=== PATIENT | male | born 1950 | race African-American/Black ===

== ENCOUNTER 2018-03-20 17:01 | Emergency (ER) | payer MEDICARE, BC ==
[2017-02-20 14:59] VITALS: BP 154/71
[~2018-03-20] VITALS: Ht 180.3 cm; Wt 154.2 kg
[~2018-03-20 17:01] MED LIST: AMLO5TAB7 PO; ASPI-630 PO; FURO20TA3 PO; GLIP5TAB10 PO; HYDR12.58 PO; LISI-130 PO; LOSA-73 PO; METF500T16 PO; TAMS0.4C2 PO
--- NOTE | 2018-03-20 20:13 | RAD ---
Indication: Trauma, fall x5 days. Low back pain TECHNIQUE: Multiple views of the lumbar spine COMPARISON: None FINDINGS: There are 5 lumbar type vertebral bodies. Lumbar spine is in normal anatomic alignment. No compression deformities. Mild to moderate multilevel facet arthropathy. Mild multilevel degenerative disc disease. IMPRESSION: No apparent compression deformities. Electronically signed by: Michael Romero DO (03/20/2018 8:10 PM) [facility]
[2018-03-20] MEDS ORDERED: HYDR-3164 PO (20:23)
[2018-03-20] MEDS ORDERED: ORPH100T PO (20:23)
--- NOTE | 2018-03-20 20:23 | PHYS DOC ---
Past Medical History Past Medical History: Diabetes-Type II, High Cholesterol, Hypertension Past Surgical History: No Surgical History Alcohol Use: None Drug Use: None Adult General Chief Complaint Chief Complaint: BACK PAIN OR INJURY HPI HPI Patient is a 67 year old male who presents with was in a parking lot and tripped and fell and landed on his left knee, left elbow, hit his right side of forehead on the curb. There is no LOC, nausea, vomiting. Patient states that he feels fine except for his lower back all the way across has a dull aching pain that he rates at a 6 out of 10 and states it is tender. Review of Systems Review of Systems Constitutional: Denies fever or chills [] Eyes: Denies change in visual acuity, redness, or eye pain [] HENT: Denies nasal congestion or sore throat [] Respiratory: Denies cough or shortness of breath [] Cardiovascular: No additional information not addressed in HPI [] GI: Denies abdominal pain, nausea, vomiting, bloody stools or diarrhea [] : Denies dysuria or hematuria [] Musculoskeletal: Low back pain or joint pain [] Integument: Denies rash or skin lesions [] Neurologic: Denies headache, focal weakness or sensory changes [] Endocrine: Denies polyuria or polydipsia [] All other systems were reviewed and found to be within normal limits, except as documented in this note. Allergies Allergies Allergies Coded Allergies Type Severity Reaction Last Updated Verified No Known Drug Allergies 02/18/17 No Physical Exam Physical Exam Constitutional: Well developed, well nourished, no acute distress, non-toxic appearance. [] HENT: Normocephalic, atraumatic, bilateral external ears normal, oropharynx moist, no oral exudates, nose normal. [] Eyes: PERRLA, EOMI, conjunctiva normal, no discharge. [] Neck: Normal range of motion, no tenderness, supple, no stridor. [] Cardiovascular:Heart rate regular rhythm, no murmur [] Lungs & Thorax: Bilateral breath sounds clear to auscultation [] Abdomen: Bowel sounds normal, soft, no tenderness, no masses, no pulsatile masses. [] Skin: Warm, dry, no erythema, no rash. [] Back: No back tenderness, no CVA tenderness. [] Extremities: no tenderness, no cyanosis, no clubbing, ROM intact, no edema. [] Neurologic: Alert and oriented X 3, normal motor function, normal sensory function, no focal deficits noted. [] Psychologic: Affect normal, judgement normal, mood normal. [] Current Patient Data Vital Signs Vital Signs Date Time Temp Pulse Resp B/P (MAP) Pulse Ox O2 Delivery O2 Flow Rate FiO2 03/20/18 17:52 97.8 61 16 222/98 (139) 97 Room Air 97.8 EKG EKG [] Radiology/Procedures Radiology/Procedures [] Impressions: [facility] [address] [place] [address] IMAGING REPORT Signed PATIENT: THA FORBES ACCOUNT: [id number] : 1950 LOCATION: ER AGE: 67 SEX: M EXAM STATUS: REG ER ORD. PHYSICIAN: CECY AQUINO APRN REASON: FALL, PAIN PROCEDURE: LUMBAR SPINE 2-3V Indication: Trauma, fall x5 days. Low back pain TECHNIQUE: Multiple views of the lumbar spine COMPARISON: None FINDINGS: There are 5 lumbar type vertebral bodies. Lumbar spine is in normal anatomic alignment. No compression deformities. Mild to moderate multilevel facet arthropathy. Mild multilevel degenerative disc disease. IMPRESSION: No apparent compression deformities. Electronically signed by: Michael Romero DO (03/20/2018 8:10 PM) [employer] DICTATED and SIGNED BY: MICHAEL ROMERO DO DATE: 03/20/182007 Course & Med Decision Making Course & Med Decision Making Patient is a 67 year old male who presents with was in a parking lot and tripped and fell and landed on his left knee, left elbow, hit his right side of forehead on the curb. There is no LOC, nausea, vomiting. Patient states that he feels fine except for his lower back all the way across has a dull aching pain that he rates at a 6 out of 10 and states it is tender. Denies headache, blurred vision, dizziness, chest pain, shortness of air. Patient walks with a cane normally. There is no bruising or deformity seen to his back but there is tenderness all the way across his back. Patient states the pain is worse with movement. He currently takes aspirin, metformin, lisinopril, D3 vitamin. No known drug allergies. States he has been taking extra strength Tylenol to help with the pain. He denies any nausea, vomiting, headache. Patient is alert and oriented and walks with steady gait using his cane. X-ray of his lumbar spine shows no acute findings. He is told that he needs to follow-up with his primary care doctor and I gave him a prescription for Norflex and [place]. [] Dragon Disclaimer Dragon Disclaimer This electronic medical record was generated, in whole or in part, using a voice recognition dictation system. Departure Departure Impression: Primary Impression: Muscle spasm of back Disposition: 01 HOME, SELF-CARE Condition: STABLE Referrals: DEENA CORBETT (PCP) Patient Instructions: Back Pain, Adult Additional Instructions: FOLLOW UP WITH YOUR PRIMARY CARE PHYSICIAN IF NEEDED. TAKE MEDICATIONS PRESCRIBED. TRY USING A HEATING PAD ON YOUR BACK TO ALSO HELP PAIN. Scripts Hydrocodone/Apap 5-325 (NORCO 5-325 TABLET) 1 Each Tablet 1 TAB PO PRN Q6HRS PRN for PAIN, #10 TAB 0 Refills Prov: CECY AQUINO APRN 03/20/18 Orphenadrine Citrate (ORPHENADRINE CITRATE) 100 Mg Tablet.er 1 TAB PO BID, #20 TAB 1 Refill Prov: CECY AQUINO APRN 03/20/18 CECY AQUINO APRN Mar 20, 2018 20:23
== END 2018-03-20 20:31 | disposition home or self-care (01) ==
LOC: ER 17:01
DX: M62.830 Muscle spasm of back (principal); M54.5 Low back pain; M25.562 Pain in left knee; M25.522 Pain in left elbow; G89.11 Acute pain due to trauma; E78.00 Pure hypercholesterolemia, unspecified; I10 Essential (primary) hypertension; E11.9 Type 2 diabetes mellitus without complications; W01.198A Fall on same level from slipping, tripping and stumbling with subsequent striking against other object, initial encounter; Y93.89 Activity, other specified; Y92.481 Parking lot as the place of occurrence of the external cause; Y99.8 Other external cause status
CPT/HCPCS: 72100; 99283

== ENCOUNTER 2019-11-28 15:04 | Inpatient (IN) | payer MEDICARE, BC ==
[~2019-11-28] VITALS: Ht 182.9 cm; Wt 164.8 kg
[~2019-11-28 15:04] MED LIST changes: +AMLO5TAB10 PO; -AMLO5TAB7 PO; +HYDR-3164 PO; +ORPH100T PO
[2019-11-28] MEDS ORDERED: ONDANSETRON PF 4 MG/2 ML VIAL. IV ONE (15:30)
[2019-11-28] MEDS ORDERED: ACETAMINOPHEN 500 MG TABLET PO ONE (15:45)
[2019-11-28 15:47] LABS: BASO # 0.1 x10^3/uL (0.0-0.2); BASO % 1 % (0-3); EOS % 0 % (0-3); HEMATOCRIT 38.1 % (39.0-53.0); HEMOGLOBIN 12.7 g/dL (13.0-17.5); LYMPH # 0.9 x10^3/uL (1.0-4.8); LYMPH % 9 % (24-48); MEAN CORPUSCULAR HEMOGLOBIN 31 pg (25-35); MEAN CORPUSCULAR HGB CONC 33 g/dL (31-37); MEAN CORPUSCULAR VOLUME 92 fL (79-100); MONO # 0.7 x10^3/uL (0.0-1.1); MONO % 7 % (0-9); NEUT # 8.7 x10^3/uL (1.8-7.7); NEUT % 84 % (31-73); PLATELET COUNT 198 x10^3/uL (140-400); RED BLOOD COUNT 4.16 x10^6/uL (4.30-5.70); RED CELL DISTRIBUTION WIDTH 13.7 % (11.5-14.5); WHITE BLOOD COUNT 10.4 x10^3/uL (4.0-11.0)
[2019-11-28 16:14] LABS: CALCIUM 8.8 mg/dL (8.5-10.1); CREATININE 2.3 mg/dL (0.7-1.3); GFR 34.3; POTASSIUM 3.5 mmol/L (3.5-5.1)
--- NOTE | 2019-11-28 16:22 | RAD ---
AP portable chest radiograph 11/28/2019 Clinical History: PUI. Nausea. . An AP erect portable digital radiograph of the chest was obtained. Comparison study is dated 02/18/2017. The cardiac silhouette is mildly enlarged. The thoracic aorta is mildly tortuous. Bilateral perihilar infiltrates are seen. No pneumothorax or definite pleural effusion is noted. Degenerative changes are seen involving the thoracic spine and both shoulders. Impression: Bilateral perihilar infiltrates. Electronically signed by: Lul Ugalde MD (11/28/2019 4:20 PM) [id number]
--- NOTE | 2019-11-28 16:26 | EKG ---
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
--- NOTE | 2019-11-28 16:51 | PHYS DOC ---
Past Medical History Past Medical History: Diabetes-Type II, High Cholesterol, Hypertension (RAJAT FIGUEROA APRN) Past Surgical History: No Surgical History (RAJAT FIGUEROA APRN) Smoking Status: Never Smoker Alcohol Use: None Drug Use: None (RAJAT FIGUEROA APRN) General Adult EDM: Chief Complaint: SHORTNESS OF BREATH HPI: HPI: Patient is a 69 year old AA male who presents to the emergency department with complaints of shortness of breath and cough that has gotten worse. Patient states that he was at [facility] 2 days ago and informed of a positive COVID-19 test. He denies any nausea, vomiting, or abdominal pain. The patient denies any chest pain but reports discomfort with breathing. Patient is confused therefore HPI is limited. (RAJAT FIGUEROA APRN) Review of Systems: Review of Systems: Constitutional: Reports fever HENT: Denies nasal congestion or sore throat. [] Respiratory: Reports cough and shortness of breath, see HPI Cardiovascular: Denies chest pain GI: Denies abdominal pain, nausea, or vomiting Musculoskeletal: Denies back pain or joint pain. [] Integument: Denies rash. [] Neurologic: Denies headache Psychiatric: Denies depression or anxiety. [] (RAJAT FIGUEROA APRN) Heart Score: Risk Factors: Risk Factors: DM, Current or recent (<one month) smoker, HTN, HLP, family history of CAD, obesity. Risk Scores: Score 0 - 3: 2.5% MACE over next 6 weeks - Discharge Home Score 4 - 6: 20.3% MACE over next 6 weeks - Admit for Clinical Observation Score 7 - 10: 72.7% MACE over next 6 weeks - Early Invasive Strategies (RAJAT FIGUEROA APRN) Current Medications: Current Medications Medications (Trade) Dose Ordered Sig/Quinn Start Time Stop Time Status Last Admin Dose Admin Acetaminophen (Tylenol) 1,000 mg 1X ONCE 11/28/19 15:45 11/28/19 16:03 DC 11/28/19 16:25 1,000 MG Ondansetron HCl (Zofran) 4 mg 1X ONCE 11/28/19 15:30 11/28/19 15:36 DC 11/28/19 16:25 4 MG (RAJAT FIGUEROA APRN) Allergies: Allergies: Allergies Coded Allergies Type Severity Reaction Last Updated Verified No Known Drug Allergies 02/18/17 No (RAJAT FIGUEROA APRN) Physical Exam: PE: Constitutional: Well developed, well nourished, no acute distress, ill-appearing HENT: Normocephalic, atraumatic, bilateral external ears normal, nose normal. [] Eyes: PERRLA, EOMI, conjunctiva normal, no discharge. [] Neck: Normal range of motion, no stridor. [] Cardiovascular:Heart rate regular tachycardic rhythm Lungs & Thorax: Bilateral breath sounds coarse with wheezing throughout, dimi nished posterior bases, regular rate, no retractions, Abdomen: soft, no tenderness Skin: Flushed, hot, dry, no rash Extremities: No cyanosis, no clubbing, ROM intact, 1+ BLE Neurologic: Alert and oriented X 3, no focal deficits noted. [] Psychologic: Affect normal, judgement normal, mood normal. [] (RAJAT FIGUEROA APRN) Current Patient Data: Labs: Laboratory Tests Test 11/28/19 15:30 White Blood Count 10.4 x10^3/uL (4.0-11.0) Red Blood Count 4.16 x10^6/uL (4.30-5.70) L Hemoglobin 12.7 g/dL (13.0-17.5) L Hematocrit 38.1 % (39.0-53.0) L Mean Corpuscular Volume 92 fL (79-100) Mean Corpuscular Hemoglobin 31 pg (25-35) Mean Corpuscular Hemoglobin Concent 33 g/dL (31-37) Red Cell Distribution Width 13.7 % (11.5-14.5) Platelet Count 198 x10^3/uL (140-400) Neutrophils (%) (Auto) 84 % (31-73) H Lymphocytes (%) (Auto) 9 % (24-48) L Monocytes (%) (Auto) 7 % (0-9) Eosinophils (%) (Auto) 0 % (0-3) Basophils (%) (Auto) 1 % (0-3) Neutrophils # (Auto) 8.7 x10^3/uL (1.8-7.7) H Lymphocytes # (Auto) 0.9 x10^3/uL (1.0-4.8) L Monocytes # (Auto) 0.7 x10^3/uL (0.0-1.1) Eosinophils # (Auto) 0.0 x10^3/uL (0.0-0.7) Basophils # (Auto) 0.1 x10^3/uL (0.0-0.2) D-Dimer (Natty) 0.70 ug/mlFEU (0.00-0.50) H Sodium Level 136 mmol/L (136-145) Potassium Level 3.5 mmol/L (3.5-5.1) Chloride Level 97 mmol/L (98-107) L Carbon Dioxide Level 29 mmol/L (21-32) Anion Gap 10 (6-14) Blood Urea Nitrogen 31 mg/dL (8-26) H Creatinine 2.3 mg/dL (0.7-1.3) H Estimated GFR (Cockcroft-Gault) 34.3 BUN/Creatinine Ratio 13 (6-20) Glucose Level 320 mg/dL (70-99) H Lactic Acid Level 2.1 mmol/L (0.4-2.0) H Calcium Level 8.8 mg/dL (8.5-10.1) Magnesium Level Pending Ferritin Pending Total Bilirubin Pending Aspartate Amino Transferase (AST) Pending Alanine Aminotransferase (ALT) Pending Alkaline Phosphatase Pending Creatine Kinase Pending C-Reactive Protein, Quantitative Pending Total Protein Pending Albumin Pending Albumin/Globulin Ratio Pending Lipase Pending Procalcitonin 0.55 ng/mL (0.00-0.10) H Laboratory Tests 11/28/19 15:30 Laboratory Tests 11/28/19 15:30 Vital Signs: Vital Signs Date Time Temp Pulse Resp B/P (MAP) Pulse Ox O2 Delivery O2 Flow Rate FiO2 11/28/19 15:07 102.2 106 12 138/98 (111) 92 Nasal Cannula 3.0 102.2 (RAJAT FIGUEROA APRN) EKG: EK-sinus rhythm, rate 100, no STEMI read by Dr. Paige [] (RAJAT FIGUEROA APRN) Radiology/Procedures: Radiology/Procedures: PROCEDURE: CHEST AP ONLY AP portable chest radiograph 11/28/2019 Clinical History: PUI. Nausea. . An AP erect portable digital radiograph of the chest was obtained. Comparison study is dated 02/18/2017. The cardiac silhouette is mildly enlarged. The thoracic aorta is mildly tortuous. Bilateral perihilar infiltrates are seen. No pneumothorax or definite pleural effusion is noted. Degenerative changes are seen involving the thoracic spine and both shoulders. Impression: Bilateral perihilar infiltrates.[] (RAJAT FIGUEROA APRN) Course & Med Decision Making: Course & Med Decision Making Pertinent Labs and Imaging studies reviewed. (See chart for details) [id number] with Dr. Soni who is the admitting physician, and care was assumed following discussion of patient. Will admit patients to the ICU for COVID-19, sepsis, hypoxemia, acute renal failure, and fever. Patient's vital signs stable, PT appears ill. Patient will be admitted to the ICU floor. Patient's case and plan of care also discussed with Dr. Paige [] (RAJAT FIGUEROA APRN) Course & Med Decision Making I have reviewed the PA/MOTION PICTURE CAMERA LENS TECHNICIAN's note and Plan of Care. I was available for consultation as needed during the patient's visit in the emergency department. I agree with the clinical impression, plans and disposition. (MICHELLE PAIGE MD) Dragon Disclaimer: Dragon Disclaimer: This electronic medical record was generated, in whole or in part, using a voice recognition dictation system. (RAJAT FIGUEROA APRN) Departure Departure Impression: Primary Impression: COVID-19 Additional Impressions: Sepsis Qualified Codes: A41.9 - Sepsis, unspecified organism; R65.20 - Severe sepsis without septic shock; N17.9 - Acute kidney failure, unspecified Hypoxemia ARF (acute renal failure) Qualified Codes: N17.9 - Acute kidney failure, unspecified Fever Qualified Codes: R50.9 - Fever, unspecified Disposition: 09 ADMITTED INPATIENT Admitting Physician: CAM TORRES) (RAJAT FIGUEROA APRN) Condition: STABLE Referrals: NON,STAFF (PCP) Justicifation of Admission Dx: Justifications for Admission: Justification of Admission Dx: Yes Sepsis: Hypoxemia (RAJAT FIGUEROA APRN) RAJAT FIGUEROA APRN Nov 28, 2019 16:50 MICHELLE PAIGE MD Nov 29, 2019 06:09
[2019-11-28 16:52] LABS: ALBUMIN 2.3 g/dL (3.4-5.0); ALBUMIN/GLOBULIN RATIO 0.4 (1.0-1.7); C-REACTIVE PROTEIN 239.2 mg/L (0-3.3); MAGNESIUM 1.8 mg/dL (1.8-2.4); TOTAL BILIRUBIN 0.9 mg/dL (0.2-1.0); TOTAL PROTEIN 7.5 g/dL (6.4-8.2)
[2019-11-28] MEDS ORDERED: ONDANSETRON PF 4 MG/2 ML VIAL. IVP PRN (17:45)
[2019-11-28] MEDS ORDERED: MORPHINE SULFATE 2 MG/ML VIAL. IV PRN (17:45)
[2019-11-28] MEDS ORDERED: 0.9 % SODIUM CHLORIDE 10 ML DISP.SYRIN. IV PRN (17:45)
[2019-11-28] MEDS ORDERED: HYDROcodone/APAP 5/325MG 1 TAB TABLET PO PRN ×2 (17:45)
[2019-11-28 18:10] LABS: PROTHROMBIN TIME PATIENT 15.3 SEC (11.7-14.0)
[2019-11-28] MEDS ORDERED: MAGNESIUM SULFATE 2GM 50 ML IV ONE (19:00)
[2019-11-28] MEDS ORDERED: ENOXAPARIN 40 MG/0.4 ML SYRINGE. SQ SCH (21:00)
[2019-11-28] MEDS: THIAMINE INJ 200 MG in IV DEXTROSE 5% 50 ML IV SCH (21:47)
[2019-11-28] MEDS: ATORVASTATIN CALCIUM 40 MG TABLET. PO SCH (21:47)
[2019-11-28] MEDS: FAMOTIDINE 20 MG/2 ML VIAL IVP SCH (21:48)
[2019-11-28] MEDS: CHOLECALCIFEROL (VITAMIN D3) 1,000 UNIT TABLET PO SCH (21:48)
[2019-11-28] MEDS: CYCLOBENZAPRINE 10 MG TABLET. PO SCH (21:48)
[2019-11-28] MEDS: SENNOSIDES/DOCUSATE 8.6/50MG TABLET. PO SCH (21:48)
--- NOTE | 2019-11-28 22:28 | PDOC1 ---
History and Physical History of Present Illness History of Present Illness Jayashree is a 69 year old male with Past Medical History: Diabetes-Type II, High Cholesterol, Hypertension who was in his usual state of health until 2 days prior ot his admission when he was evaluated at and found to be positive for COVID 19 virus, patient was discharged and given instructions to follow up in the nearest medical center would his symptoms worsen, Today he felt worse and more dyspneic reason why he came to the ER, he is requiring 1 liter of oxygen at the time of my evaluation, he does not seem to be in acute distress, reassurance provided, plan of care explaiend in detail. No nausea vomiting or diarrhea reported, no other complaints besides the shortness of breath, no headache blurred vision, no chest pain or palpitations, no peripheral edema. REassurance provided. Past Medical History Cardiovascular: HTN, Hyperlipidemia Pulmonary: Other CENTRAL NERVOUS SYSTEM: Other GI: No pertinent hx Heme/Onc: No pertinent hx Hepatobiliary: No pertinent hx Psych: No pertinent hx Rheumatologic: No pertinent hx Infectious disease: No pertinent hx Renal/: Benign prostatic enlarg. Endocrine: Diabetes Past Surgical History Past Surgical History: Arthroscopy, Other Family History Family History: Coronary Artery Disease Social History Smoke: No ALCOHOL: none Drugs: None Current Problem List Problem List Problems Medical Problems: (1) ARF (acute renal failure) Status: Acute (2) Fever Status: Acute (3) Hypoxemia Status: Acute (4) Sepsis Status: Acute Current Medications Current Medications Current Medications Medications (Trade) Dose Ordered Sig/Quinn Start Time Stop Time Status Last Admin Dose Admin Acetaminophen (Tylenol) 650 mg PRN Q6HRS PRN 11/28/19 17:45 Acetaminophen/ Hydrocodone Bitart (Lortab 5/325) 1 tab PRN Q6HRS PRN 11/28/19 17:45 UNV Amlodipine Besylate (Norvasc) 5 mg DAILY 11/29/19 09:00 Ascorbic Acid (Vitamin C) 500 mg Q6HRS 11/29/19 00:00 Aspirin (Aspirin Chewable) 81 mg DAILY 11/29/19 09:00 Atorvastatin Calcium (Lipitor) 40 mg QHS 11/28/19 21:00 11/28/19 21:47 40 MG Cyclobenzaprine HCl (Flexeril) 10 mg TID 11/28/19 21:00 11/28/19 21:48 10 MG Enoxaparin Sodium (Lovenox 40mg Syringe) 40 mg Q12HR 11/29/19 09:00 Enoxaparin Sodium (Lovenox 80mg Syringe) 80 mg 1X ONCE 11/28/19 19:00 11/28/19 19:01 DC 11/28/19 19:10 80 MG Famotidine (Pepcid Vial) 20 mg BID 11/28/19 21:00 11/28/19 21:48 20 MG Furosemide (Lasix) 20 mg DAILY 11/29/19 09:00 Glipizide (Glucotrol) 2.5 mg DAILY 11/29/19 09:00 Hydrochlorothiazide (Hydrodiuril) 25 mg DAILY 11/29/19 09:00 Info (Icu Electrolyte Protocol) 1 ea DAILY 11/29/19 09:00 11/28/19 18:16 DC Lactulose (Lactulose) 20 gm PRN Q12HR PRN 11/28/19 17:45 Lisinopril (Prinivil) 40 mg DAILY 11/29/19 09:00 Lorazepam (Ativan Inj) 0.5 mg PRN Q6HRS PRN 11/28/19 17:45 Magnesium Sulfate 50 ml @ 25 mls/hr 1X ONCE 11/28/19 19:00 11/28/19 20:59 DC 11/28/19 19:10 25 MLS/HR Morphine Sulfate (Morphine Sulfate) 1 mg PRN Q1HR PRN 11/28/19 17:45 Ondansetron HCl (Zofran) 4 mg PRN Q6HRS PRN 11/28/19 17:45 Senna/Docusate Sodium (Senna Plus) 1 tab BID 11/28/19 21:00 11/28/19 21:48 1 TAB Sodium Chloride (Normal Saline Flush) 3 ml QSHIFT PRN 11/28/19 17:45 Tamsulosin HCl (Flomax) 0.4 mg DAILY 11/29/19 09:00 Thiamine HCl 200 mg/Dextrose 52 ml @ 102 mls/hr Q12HR 11/28/19 19:30 11/28/19 21:47 102 MLS/HR Vitamin D (Vitamin D3) 1,000 unit BID 11/28/19 21:00 11/28/19 21:48 1,000 UNIT Zinc Sulfate (Orazinc) 220 mg DAILY 11/29/19 09:00 Allergies Allergies Allergies Coded Allergies Type Severity Reaction Last Updated Verified No Known Drug Allergies 02/18/17 No ROS Review of System CONSTITUTIONAL: No fever or chills EYES: No recent changes SKIN: No rash or itching CARDIOVASCULAR: No chest pain, syncope, palpitations, or edema RESPIRATORY: + SOB + cough GASTROINTESTINAL: No nausea, vomiting or abdominal pain NEUROLOGICAL: No headaches or weakness ENDOCRINE: No cold or heat intolerance GENITOURINARY: No urgency or frequency of urination MUSCULOSKELETAL: No back pain or joint pain LYMPHATICS: No enlarged lymph nodes PSYCHIATRIC: No anxiety or depression Physical Exam Physical Exam GEN.: No apparent distress. Alert and oriented. HEENT: Head is normocephalic, atraumatic NECK: Supple. LUNGS: Clear to auscultation. Distant sounds due to body habitus HEART: RRR, S1, S2 present. Peripheral pulses intact ABDOMEN: Soft, nontender. Positive bowel sounds. EXTREMITIES: Without any cyanosis. NEUROLOGIC: Normal speech, normal tone PSYCHIATRIC: Normal affect, normal mood. SKIN: No ulcerations Vitals Vitals Vital Signs Date Time Temp Pulse Resp B/P (MAP) Pulse Ox O2 Delivery O2 Flow Rate FiO2 11/28/19 20:00 89 21 152/79 (103) Nasal Cannula 3.0 11/28/19 15:07 102.2 92 102.2 Labs Labs Laboratory Tests Test 11/28/19 15:30 White Blood Count 10.4 x10^3/uL (4.0-11.0) Red Blood Count 4.16 x10^6/uL (4.30-5.70) Hemoglobin 12.7 g/dL (13.0-17.5) Hematocrit 38.1 % (39.0-53.0) Mean Corpuscular Volume 92 fL (79-100) Mean Corpuscular Hemoglobin 31 pg (25-35) Mean Corpuscular Hemoglobin Concent 33 g/dL (31-37) Red Cell Distribution Width 13.7 % (11.5-14.5) Platelet Count 198 x10^3/uL (140-400) Neutrophils (%) (Auto) 84 % (31-73) Lymphocytes (%) (Auto) 9 % (24-48) Monocytes (%) (Auto) 7 % (0-9) Eosinophils (%) (Auto) 0 % (0-3) Basophils (%) (Auto) 1 % (0-3) Neutrophils # (Auto) 8.7 x10^3/uL (1.8-7.7) Lymphocytes # (Auto) 0.9 x10^3/uL (1.0-4.8) Monocytes # (Auto) 0.7 x10^3/uL (0.0-1.1) Eosinophils # (Auto) 0.0 x10^3/uL (0.0-0.7) Basophils # (Auto) 0.1 x10^3/uL (0.0-0.2) Prothrombin Time 15.3 SEC (11.7-14.0) Prothromb Time International Ratio 1.3 (0.8-1.1) D-Dimer (Natty) 0.70 ug/mlFEU (0.00-0.50) Sodium Level 136 mmol/L (136-145) Potassium Level 3.5 mmol/L (3.5-5.1) Chloride Level 97 mmol/L (98-107) Carbon Dioxide Level 29 mmol/L (21-32) Anion Gap 10 (6-14) Blood Urea Nitrogen 31 mg/dL (8-26) Creatinine 2.3 mg/dL (0.7-1.3) Estimated GFR (Cockcroft-Gault) 34.3 BUN/Creatinine Ratio 13 (6-20) Glucose Level 320 mg/dL (70-99) Lactic Acid Level 2.1 mmol/L (0.4-2.0) Calcium Level 8.8 mg/dL (8.5-10.1) Magnesium Level 1.8 mg/dL (1.8-2.4) Ferritin 1410 ng/mL (26-388) Total Bilirubin 0.9 mg/dL (0.2-1.0) Aspartate Amino Transf (AST/SGOT) 62 U/L (15-37) Alanine Aminotransferase (ALT/SGPT) 89 U/L (16-63) Alkaline Phosphatase 63 U/L (46-116) Creatine Kinase 138 U/L (39-308) C-Reactive Protein, Quantitative 239.2 mg/L (0-3.3) Total Protein 7.5 g/dL (6.4-8.2) Albumin 2.3 g/dL (3.4-5.0) Albumin/Globulin Ratio 0.4 (1.0-1.7) Lipase 253 U/L (73-393) Procalcitonin 0.55 ng/mL (0.00-0.10) Laboratory Tests Test 11/28/19 15:30 White Blood Count 10.4 x10^3/uL (4.0-11.0) Red Blood Count 4.16 x10^6/uL (4.30-5.70) Hemoglobin 12.7 g/dL (13.0-17.5) Hematocrit 38.1 % (39.0-53.0) Mean Corpuscular Volume 92 fL (79-100) Mean Corpuscular Hemoglobin 31 pg (25-35) Mean Corpuscular Hemoglobin Concent 33 g/dL (31-37) Red Cell Distribution Width 13.7 % (11.5-14.5) Platelet Count 198 x10^3/uL (140-400) Neutrophils (%) (Auto) 84 % (31-73) Lymphocytes (%) (Auto) 9 % (24-48) Monocytes (%) (Auto) 7 % (0-9) Eosinophils (%) (Auto) 0 % (0-3) Basophils (%) (Auto) 1 % (0-3) Neutrophils # (Auto) 8.7 x10^3/uL (1.8-7.7) Lymphocytes # (Auto) 0.9 x10^3/uL (1.0-4.8) Monocytes # (Auto) 0.7 x10^3/uL (0.0-1.1) Eosinophils # (Auto) 0.0 x10^3/uL (0.0-0.7) Basophils # (Auto) 0.1 x10^3/uL (0.0-0.2) Prothrombin Time 15.3 SEC (11.7-14.0) Prothromb Time International Ratio 1.3 (0.8-1.1) D-Dimer (Natty) 0.70 ug/mlFEU (0.00-0.50) Sodium Level 136 mmol/L (136-145) Potassium Level 3.5 mmol/L (3.5-5.1) Chloride Level 97 mmol/L (98-107) Carbon Dioxide Level 29 mmol/L (21-32) Anion Gap 10 (6-14) Blood Urea Nitrogen 31 mg/dL (8-26) Creatinine 2.3 mg/dL (0.7-1.3) Estimated GFR (Cockcroft-Gault) 34.3 BUN/Creatinine Ratio 13 (6-20) Glucose Level 320 mg/dL (70-99) Lactic Acid Level 2.1 mmol/L (0.4-2.0) Calcium Level 8.8 mg/dL (8.5-10.1) Magnesium Level 1.8 mg/dL (1.8-2.4) Ferritin 1410 ng/mL (26-388) Total Bilirubin 0.9 mg/dL (0.2-1.0) Aspartate Amino Transf (AST/SGOT) 62 U/L (15-37) Alanine Aminotransferase (ALT/SGPT) 89 U/L (16-63) Alkaline Phosphatase 63 U/L (46-116) Creatine Kinase 138 U/L (39-308) C-Reactive Protein, Quantitative 239.2 mg/L (0-3.3) Total Protein 7.5 g/dL (6.4-8.2) Albumin 2.3 g/dL (3.4-5.0) Albumin/Globulin Ratio 0.4 (1.0-1.7) Lipase 253 U/L (73-393) Procalcitonin 0.55 ng/mL (0.00-0.10) VTE Prophylaxis Ordered VTE Prophylaxis Devices: No VTE Pharmacological Prophylaxi: Yes Assessment/Plan Assessment/Plan COVID 19 infection acute hypoxemic respiratory distress due to the above. Acute renal failure due to vasomotor nephropathy normocytic anemia Admit to the covid floor supportive measures follow respiaroty status and increase oxygen as needed we can tolerate hypoxemia as long as the patient is not obtunded prone positioning encouraged please see orders DVT prophylaxis: RAN Aguayo MD Nov 28, 2019 22:28
[2019-11-28 22:56] VITALS: BP 136/59
[2019-11-29 03:00] VITALS: BP 129/74
[2019-11-29] MEDS: ACETAMINOPHEN 325 MG TABLET. PO PRN ×4 (03:00→20:52)
[2019-11-29 03:56] LABS: BASO % 0 % (0-3); EOS % 0 % (0-3); HEMATOCRIT 35.8 % (39.0-53.0); HEMOGLOBIN 11.9 g/dL (13.0-17.5); LYMPH # 0.7 x10^3/uL (1.0-4.8); LYMPH % 8 % (24-48); MEAN CORPUSCULAR HEMOGLOBIN 31 pg (25-35); MEAN CORPUSCULAR HGB CONC 33 g/dL (31-37); MEAN CORPUSCULAR VOLUME 92 fL (79-100); MONO # 0.6 x10^3/uL (0.0-1.1); MONO % 7 % (0-9); NEUT # 7.7 x10^3/uL (1.8-7.7); NEUT % 85 % (31-73); PLATELET COUNT 189 x10^3/uL (140-400); RED CELL DISTRIBUTION WIDTH 13.7 % (11.5-14.5); WHITE BLOOD COUNT 9.1 x10^3/uL (4.0-11.0)
[2019-11-29 04:05] LABS: PROTHROMBIN TIME PATIENT 16.3 SEC (11.7-14.0)
[2019-11-29 04:12] LABS: CALCIUM 8.2 mg/dL (8.5-10.1); CREATININE 2.8 mg/dL (0.7-1.3); GFR 27.3; POTASSIUM 3.4 mmol/L (3.5-5.1)
[2019-11-29] MEDS: ASCORBIC ACID 500 MG TABLET PO SCH ×5 (06:27→23:17)
[2019-11-29 07:25] VITALS: BP 147/68
[2019-11-29] MEDS ORDERED: ELECTROLYTE (ICU) PROTOCOL. MC SCH (09:00)
[2019-11-29] MEDS: THIAMINE INJ 200 MG in IV DEXTROSE 5% 50 ML IV SCH ×2 (09:30→20:53)
[2019-11-29] MEDS: hydroCHLOROthiazide 25 MG TABLET PO SCH (09:30)
[2019-11-29] MEDS: CYCLOBENZAPRINE 10 MG TABLET. PO SCH ×3 (09:30→20:52)
[2019-11-29] MEDS: ZINC SULFATE 220 MG CAPSULE. PO SCH (09:30)
[2019-11-29] MEDS: LISINOPRIL 20 MG TABLET PO SCH (09:31)
[2019-11-29] MEDS: SENNOSIDES/DOCUSATE 8.6/50MG TABLET. PO SCH ×2 (09:32→20:52)
[2019-11-29] MEDS: amLODIPine BESYLATE 5 MG TABLET PO SCH (09:32)
[2019-11-29] MEDS: ASPIRIN CHEWABLE 81 MG TABLET. PO SCH (09:32)
[2019-11-29] MEDS: CHOLECALCIFEROL (VITAMIN D3) 1,000 UNIT TABLET PO SCH ×2 (09:32→20:52)
[2019-11-29] MEDS: FUROSEMIDE 20 MG TABLET PO SCH (09:33)
[2019-11-29] MEDS: TAMSULOSIN 0.4 MG CAP.ER.24H. PO SCH (09:33)
[2019-11-29] MEDS: glipiZIDE 5 MG TABLET PO SCH (09:33)
[2019-11-29] MEDS: FAMOTIDINE 20 MG/2 ML VIAL IVP SCH ×2 (09:34→20:52)
[2019-11-29] MEDS: ENOXAPARIN 40 MG/0.4 ML SYRINGE. SQ SCH ×2 (09:34→20:52)
[2019-11-29 11:29] VITALS: BP 155/79
--- NOTE | 2019-11-29 12:50 | PDOC ---
[employer] PROGRESS NOTE Date of Service DOS: DATE: 11/29/19 TIME: 12:46 Chief Complaint Chief Complaint COVID 19 infection acute hypoxemic respiratory distress due to the above. Acute renal failure due to vasomotor nephropathy normocytic anemia Diabetes-Type II High Cholesterol Hypertension FEN - ADA PPX - lovenox FULL CODE Dispo - inpatient History of Present Illness History of Present Illness Mr Olvera is a 69yo M w/ PMHx Diabetes-Type II, High Cholesterol, Hypertension who was in his usual state of health until 2 days prior ot his admission when he was evaluated at [facility] and found to be positive for COVID 19 virus, patient was discharged and given instructions to follow up in the nearest medical center would his symptoms worsen, Today he felt worse and more dyspneic reason why he came to the ER, he initially requiring 1 liter of oxygen Febrile 101 3 F on 11/28/2019. Procalcitonin elevated, INR 1.4, WBC 9.1, Hb 11.9, platelets 189, NA 137, K3.4, BUN 39, CR 2.8, glucose 240. He is short of breath with cough. He is insistent he does not wish for convalescent FFP if his O2 needs continues to increase. Now on 4L NCO2. Vitals/I&O Vitals/I&O: Vital Signs Date Time Temp Pulse Resp B/P (MAP) Pulse Ox O2 Delivery O2 Flow Rate FiO2 11/29/19 11:29 99.2 106 22 155/79 (104) 92 Nasal Cannula 6.0 99.2 I & O 11/28/19 11/28/19 11/29/19 15:00 23:00 07:00 Intake Total 50 ml 50 ml Output Total 200 ml Balance 50 ml -150 ml Physical Exam General: Alert Labs Labs: Laboratory Tests Test 11/28/19 15:30 11/29/19 03:40 11/29/19 07:21 11/29/19 10:22 White Blood Count 10.4 x10^3/uL (4.0-11.0) 9.1 x10^3/uL (4.0-11.0) Red Blood Count 4.16 x10^6/uL (4.30-5.70) 3.90 x10^6/uL (4.30-5.70) Hemoglobin 12.7 g/dL (13.0-17.5) 11.9 g/dL (13.0-17.5) Hematocrit 38.1 % (39.0-53.0) 35.8 % (39.0-53.0) Mean Corpuscular Volume 92 fL (79-100) 92 fL (79-100) Mean Corpuscular Hemoglobin 31 pg (25-35) 31 pg (25-35) Mean Corpuscular Hemoglobin Concent 33 g/dL (31-37) 33 g/dL (31-37) Red Cell Distribution Width 13.7 % (11.5-14.5) 13.7 % (11.5-14.5) Platelet Count 198 x10^3/uL (140-400) 189 x10^3/uL (140-400) Neutrophils (%) (Auto) 84 % (31-73) 85 % (31-73) Lymphocytes (%) (Auto) 9 % (24-48) 8 % (24-48) Monocytes (%) (Auto) 7 % (0-9) 7 % (0-9) Eosinophils (%) (Auto) 0 % (0-3) 0 % (0-3) Basophils (%) (Auto) 1 % (0-3) 0 % (0-3) Neutrophils # (Auto) 8.7 x10^3/uL (1.8-7.7) 7.7 x10^3/uL (1.8-7.7) Lymphocytes # (Auto) 0.9 x10^3/uL (1.0-4.8) 0.7 x10^3/uL (1.0-4.8) Monocytes # (Auto) 0.7 x10^3/uL (0.0-1.1) 0.6 x10^3/uL (0.0-1.1) Eosinophils # (Auto) 0.0 x10^3/uL (0.0-0.7) 0.0 x10^3/uL (0.0-0.7) Basophils # (Auto) 0.1 x10^3/uL (0.0-0.2) 0.0 x10^3/uL (0.0-0.2) Prothrombin Time 15.3 SEC (11.7-14.0) 16.3 SEC (11.7-14.0) Prothromb Time International Ratio 1.3 (0.8-1.1) 1.4 (0.8-1.1) D-Dimer (Natty) 0.70 ug/mlFEU (0.00-0.50) Sodium Level 136 mmol/L (136-145) 137 mmol/L (136-145) Potassium Level 3.5 mmol/L (3.5-5.1) 3.4 mmol/L (3.5-5.1) Chloride Level 97 mmol/L (98-107) 100 mmol/L (98-107) Carbon Dioxide Level 29 mmol/L (21-32) 32 mmol/L (21-32) Anion Gap 10 (6-14) 5 (6-14) Blood Urea Nitrogen 31 mg/dL (8-26) 39 mg/dL (8-26) Creatinine 2.3 mg/dL (0.7-1.3) 2.8 mg/dL (0.7-1.3) Estimated GFR (Cockcroft-Gault) 34.3 27.3 BUN/Creatinine Ratio 13 (6-20) Glucose Level 320 mg/dL (70-99) 240 mg/dL (70-99) Lactic Acid Level 2.1 mmol/L (0.4-2.0) 1.0 mmol/L (0.4-2.0) Calcium Level 8.8 mg/dL (8.5-10.1) 8.2 mg/dL (8.5-10.1) Magnesium Level 1.8 mg/dL (1.8-2.4) Ferritin 1410 ng/mL (26-388) Total Bilirubin 0.9 mg/dL (0.2-1.0) Aspartate Amino Transf (AST/SGOT) 62 U/L (15-37) Alanine Aminotransferase (ALT/SGPT) 89 U/L (16-63) Alkaline Phosphatase 63 U/L (46-116) Creatine Kinase 138 U/L (39-308) C-Reactive Protein, Quantitative 239.2 mg/L (0-3.3) Total Protein 7.5 g/dL (6.4-8.2) Albumin 2.3 g/dL (3.4-5.0) Albumin/Globulin Ratio 0.4 (1.0-1.7) Lipase 253 U/L (73-393) Procalcitonin 0.55 ng/mL (0.00-0.10) Glucose (Fingerstick) 208 mg/dL (70-99) 218 mg/dL (70-99) Assessment and Plan Assessmemt and Plan Problems Medical Problems: (1) ARF (acute renal failure) Status: Acute (2) Fever Status: Acute (3) Hypoxemia Status: Acute (4) Sepsis Status: Acute Comment Review of Relevant I have reviewed the following items bren (where applicable) has been applied. Medications: Current Medications Medications (Trade) Dose Ordered Sig/Quinn Route PRN Reason Start Time Stop Time Status Last Admin Dose Admin Ondansetron HCl (Zofran) 4 mg 1X ONCE IV 11/28/19 15:30 11/28/19 15:36 DC 11/28/19 16:25 Acetaminophen (Tylenol) 1,000 mg 1X ONCE PO 11/28/19 15:45 11/28/19 16:03 DC 11/28/19 16:25 Acetaminophen (Tylenol) 650 mg PRN Q6HRS PRN PO Headaches, Temp > 101.5' 11/28/19 17:45 11/29/19 07:55 Famotidine (Pepcid Vial) 20 mg BID IVP 11/28/19 21:00 11/29/19 09:34 Senna/Docusate Sodium (Senna Plus) 1 tab BID PO 11/28/19 21:00 11/29/19 09:32 Amlodipine Besylate (Norvasc) 5 mg DAILY PO 11/29/19 09:00 11/29/19 09:32 Aspirin (Aspirin Chewable) 81 mg DAILY PO 11/29/19 09:00 11/29/19 09:32 Furosemide (Lasix) 20 mg DAILY PO 11/29/19 09:00 11/29/19 09:33 Glipizide (Glucotrol) 2.5 mg DAILY PO 11/29/19 09:00 11/29/19 09:33 Lisinopril (Prinivil) 40 mg DAILY PO 11/29/19 09:00 11/29/19 09:31 Tamsulosin HCl (Flomax) 0.4 mg DAILY PO 11/29/19 09:00 11/29/19 09:33 Hydrochlorothiazide (Hydrodiuril) 25 mg DAILY PO 11/29/19 09:00 11/29/19 09:30 Cyclobenzaprine HCl (Flexeril) 10 mg TID PO 11/28/19 21:00 11/29/19 09:30 Magnesium Sulfate 50 ml @ 25 mls/hr 1X ONCE IV 11/28/19 19:00 11/28/19 20:59 DC 11/28/19 19:10 Zinc Sulfate (Orazinc) 220 mg DAILY PO 11/29/19 09:00 11/29/19 09:30 Ascorbic Acid (Vitamin C) 500 mg Q6HRS PO 11/29/19 00:00 11/29/19 12:12 Vitamin D (Vitamin D3) 1,000 unit BID PO 11/28/19 21:00 11/29/19 09:32 Atorvastatin Calcium (Lipitor) 40 mg QHS PO 11/28/19 21:00 11/28/19 21:47 Enoxaparin Sodium (Lovenox 80mg Syringe) 80 mg 1X ONCE SQ 11/28/19 19:00 11/28/19 19:01 DC 11/28/19 19:10 Enoxaparin Sodium (Lovenox 40mg Syringe) 40 mg Q12HR SQ 11/29/19 09:00 11/29/19 09:34 Thiamine HCl 200 mg/Dextrose 52 ml @ 102 mls/hr Q12HR IV 11/28/19 19:30 11/29/19 09:30 Justicifation of Admission Dx: Justifications for Admission: Justification of Admission Dx: Yes Sepsis: Hypoxemia LIDIA MORGAN MD Nov 29, 2019 12:49
[2019-11-29 15:27] VITALS: BP 165/82
[2019-11-29] MEDS ORDERED: POTASSIUM CHLORIDE 20 MEQ TABLET.ER. PO ONE (16:45)
[2019-11-29 20:30] VITALS: BP 163/62
[2019-11-29] MEDS: ATORVASTATIN CALCIUM 40 MG TABLET. PO SCH (20:52)
[2019-11-29 23:45] VITALS: BP 140/60
[2019-11-30] VITALS (15 sets, daily range): BP systolic 114–176; BP diastolic 63–100
[2019-11-30] MEDS: ASCORBIC ACID 500 MG TABLET PO SCH ×3 (02:58→18:00)
[2019-11-30 03:58] LABS: BASO % 0 % (0-3); EOS # 0.1 x10^3/uL (0.0-0.7); EOS % 1 % (0-3); HEMATOCRIT 34.9 % (39.0-53.0); HEMOGLOBIN 11.5 g/dL (13.0-17.5); LYMPH # 1.4 x10^3/uL (1.0-4.8); LYMPH % 17 % (24-48); MEAN CORPUSCULAR HEMOGLOBIN 31 pg (25-35); MEAN CORPUSCULAR HGB CONC 33 g/dL (31-37); MEAN CORPUSCULAR VOLUME 93 fL (79-100); MONO # 0.6 x10^3/uL (0.0-1.1); MONO % 7 % (0-9); NEUT # 5.9 x10^3/uL (1.8-7.7); NEUT % 75 % (31-73); PLATELET COUNT 183 x10^3/uL (140-400); RED BLOOD COUNT 3.76 x10^6/uL (4.30-5.70); RED CELL DISTRIBUTION WIDTH 13.6 % (11.5-14.5)
[2019-11-30 04:17] LABS: ALBUMIN 1.8 g/dL (3.4-5.0); ALBUMIN/GLOBULIN RATIO 0.4 (1.0-1.7); CALCIUM 8.4 mg/dL (8.5-10.1); CREATININE 4.1 mg/dL (0.7-1.3); GFR 17.6; POTASSIUM 3.7 mmol/L (3.5-5.1); TOTAL BILIRUBIN 0.4 mg/dL (0.2-1.0); TOTAL PROTEIN 6.7 g/dL (6.4-8.2)
[2019-11-30] MEDS: CHOLECALCIFEROL (VITAMIN D3) 1,000 UNIT TABLET PO SCH ×2 (08:44→22:16)
[2019-11-30] MEDS: ASPIRIN CHEWABLE 81 MG TABLET. PO SCH (08:44)
[2019-11-30] MEDS: hydroCHLOROthiazide 25 MG TABLET PO SCH (08:44)
[2019-11-30] MEDS: glipiZIDE 5 MG TABLET PO SCH (08:44)
[2019-11-30] MEDS: ZINC SULFATE 220 MG CAPSULE. PO SCH (08:45)
[2019-11-30] MEDS: CYCLOBENZAPRINE 10 MG TABLET. PO SCH ×3 (08:45→22:16)
[2019-11-30] MEDS: amLODIPine BESYLATE 5 MG TABLET PO SCH (08:45)
[2019-11-30] MEDS: SENNOSIDES/DOCUSATE 8.6/50MG TABLET. PO SCH ×2 (08:45→22:16)
[2019-11-30] MEDS: ACETAMINOPHEN 325 MG TABLET. PO PRN (08:45)
[2019-11-30] MEDS: FUROSEMIDE 20 MG TABLET PO SCH (08:45)
[2019-11-30] MEDS: TAMSULOSIN 0.4 MG CAP.ER.24H. PO SCH (08:45)
[2019-11-30] MEDS ORDERED: PIP/TAZO PER PHARMACY MC PRN (08:45)
[2019-11-30] MEDS: FAMOTIDINE 20 MG/2 ML VIAL IVP SCH ×2 (08:46→22:17)
[2019-11-30] MEDS: ENOXAPARIN 40 MG/0.4 ML SYRINGE. SQ SCH (09:00)
[2019-11-30] MEDS: LISINOPRIL 20 MG TABLET PO SCH (09:00)
--- NOTE | 2019-11-30 09:09 | PDOC ---
[employer] PROGRESS NOTE Date of Service DOS: DATE: 11/30/19 TIME: 09:06 Chief Complaint Chief Complaint COVID 19 infection acute hypoxemic respiratory distress due to the above. Acute renal failure due to vasomotor nephropathy normocytic anemia Diabetes-Type II High Cholesterol Hypertension Severe protein calorie malnutrition FEN - ADA PPX - lovenox FULL CODE Dispo - inpatient History of Present Illness History of Present Illness Mr Olvera is a 69yo M w/ PMHx Diabetes-Type II, High Cholesterol, Hypertension who was in his usual state of health until 2 days prior ot his admission when he was evaluated at [facility] and found to be positive for COVID 19 virus, patient was discharged and given instructions to follow up in the nearest medical center would his symptoms worsen, Today he felt worse and more dyspneic reason why he came to the ER, he initially requiring 1 liter of oxygen 11/28: Febrile 101 3 F overnight. Procalcitonin elevated, INR 1.4, WBC 9.1, Hb 11.9, platelets 189, NA 137, K3.4, BUN 39, CR 2.8, glucose 240. He is short of breath with cough. He is insistent he does not wish for convalescent FFP if his O2 needs continues to increase. Now on 4L NCO2. Febrile to 101.5 F overnight. Creatinine increased to 4.1, he still very short of breath worsening cough, increased from 6 L nasal cannula overnight to 15 L nonrebreather facemask. I discussed with pulmonology to transferred out of the ICU. I have asked the patient to reconsider convalesce and FFP and will discuss with his family. Vitals/I&O Vitals/I&O: Vital Signs Date Time Temp Pulse Resp B/P (MAP) Pulse Ox O2 Delivery O2 Flow Rate FiO2 11/30/19 08:45 90 155/67 11/30/19 07:38 99.8 20 94 NonRebreather Mask 15.0 99.8 I & O 0 11/29/19 11/29/19 11/30/19 15:00 23:00 07:00 Intake Total 200 ml 80 ml 360 ml Output Total 250 ml 0 ml Balance -50 ml 80 ml 360 ml Physical Exam General: Alert Heart: Regular rate, Normal S1, Normal S2 Lungs: Wheezing, Crackles Abdomen: Normal bowel sounds, Soft Extremities: No clubbing, No cyanosis Skin: No rashes, No breakdown Labs Labs: Laboratory Tests Test 11/29/19 10:22 11/29/19 16:19 11/29/19 21:26 11/30/19 03:50 Glucose (Fingerstick) 218 mg/dL (70-99) 138 mg/dL (70-99) 119 mg/dL (70-99) White Blood Count 8.0 x10^3/uL (4.0-11.0) Red Blood Count 3.76 x10^6/uL (4.30-5.70) Hemoglobin 11.5 g/dL (13.0-17.5) Hematocrit 34.9 % (39.0-53.0) Mean Corpuscular Volume 93 fL (79-100) Mean Corpuscular Hemoglobin 31 pg (25-35) Mean Corpuscular Hemoglobin Concent 33 g/dL (31-37) Red Cell Distribution Width 13.6 % (11.5-14.5) Platelet Count 183 x10^3/uL (140-400) Neutrophils (%) (Auto) 75 % (31-73) Lymphocytes (%) (Auto) 17 % (24-48) Monocytes (%) (Auto) 7 % (0-9) Eosinophils (%) (Auto) 1 % (0-3) Basophils (%) (Auto) 0 % (0-3) Neutrophils # (Auto) 5.9 x10^3/uL (1.8-7.7) Lymphocytes # (Auto) 1.4 x10^3/uL (1.0-4.8) Monocytes # (Auto) 0.6 x10^3/uL (0.0-1.1) Eosinophils # (Auto) 0.1 x10^3/uL (0.0-0.7) Basophils # (Auto) 0.0 x10^3/uL (0.0-0.2) Sodium Level 135 mmol/L (136-145) Potassium Level 3.7 mmol/L (3.5-5.1) Chloride Level 100 mmol/L (98-107) Carbon Dioxide Level 28 mmol/L (21-32) Anion Gap 7 (6-14) Blood Urea Nitrogen 56 mg/dL (8-26) Creatinine 4.1 mg/dL (0.7-1.3) Estimated GFR (Cockcroft-Gault) 17.6 BUN/Creatinine Ratio 14 (6-20) Glucose Level 122 mg/dL (70-99) Calcium Level 8.4 mg/dL (8.5-10.1) Total Bilirubin 0.4 mg/dL (0.2-1.0) Aspartate Amino Transf (AST/SGOT) 44 U/L (15-37) Alanine Aminotransferase (ALT/SGPT) 49 U/L (16-63) Alkaline Phosphatase 52 U/L (46-116) Total Protein 6.7 g/dL (6.4-8.2) Albumin 1.8 g/dL (3.4-5.0) Albumin/Globulin Ratio 0.4 (1.0-1.7) Test 11/30/19 07:26 Glucose (Fingerstick) 91 mg/dL (70-99) Assessment and Plan Assessmemt and Plan Problems Medical Problems: (1) ARF (acute renal failure) Status: Acute (2) Fever Status: Acute (3) Hypoxemia Status: Acute (4) Sepsis Status: Acute Comment Review of Relevant I have reviewed the following items bren (where applicable) has been applied. Medications: Current Medications Medications (Trade) Dose Ordered Sig/Quinn Route PRN Reason Start Time Stop Time Status Last Admin Dose Admin Potassium Chloride (Klor-Con) 40 meq 1X ONCE PO 11/29/19 16:45 11/29/19 16:46 DC 11/29/19 17:15 Justicifation of Admission Dx: Justifications for Admission: Justification of Admission Dx: Yes Sepsis: Hypoxemia LIDIA MORGAN MD Nov 30, 2019 09:09
--- NOTE | 2019-11-30 09:25 | CONS ---
DATE OF CONSULTATION: 11/30/2019 PULMONARY CONSULTATION ATTENDING PHYSICIAN: Bravo Soni MD REASON FOR CONSULTATION: Respiratory failure, COVID pneumonia. HISTORY OF PRESENT ILLNESS: The patient is a 69-year-old male with history of diabetes, dyslipidemia, and hypertension. No significant tobacco history. He was seen recently at and was found to be COVID positive. He was discharged and given instructions to follow up the nearest medical center if his symptoms worsen. He was brought into the hospital with increasing shortness of breath. He was requiring oxygen and his oxygen needs progressively gotten worse. He is currently on 100% nonrebreather mask with saturation barely in the 90s. He had a fever of 102.6. His chest x-ray has shown bilateral interstitial infiltrates. The patient is currently on the 6th floor. I did ask him about advanced directives and he was not clear about it. He is currently a full code. PAST MEDICAL HISTORY: Significant for hypertension, hyperlipidemia, BPH, and diabetes. PAST SURGICAL HISTORY: Arthroscopy. FAMILY HISTORY: Coronary artery disease. SOCIAL HISTORY: Nonsmoker. ALLERGIES: None. MEDICATIONS: Reviewed as listed in the [facility], including high-dose DVT prophylaxis. REVIEW OF SYSTEMS: Ten-point system obtained. Pertinent positives discussed in my history of present illness, otherwise noncontributory. All systems that were negative were reviewed as well. PHYSICAL EXAMINATION: VITAL SIGNS: Reviewed. T-max of 102.6. Pulse ox in the 90% on a nonrebreather mask. Blood pressure 155/67. HEENT: Visual exam done due to COVID pandemia. No obvious respiratory distress, but lethargic. SKIN: No skin rash. CHEST: No paradoxical breathing. LABORATORY DATA: Reviewed. BUN is 56, creatinine of 4.1. INR is 1.4. D-dimer is 0.7. White cell count 8.0, hemoglobin 11.5 and platelets are 183. IMPRESSION: 1. Acute hypoxic respiratory failure secondary to COVID-19 pneumonia/acute lung injury/early acute respiratory distress syndrome. 2. Abnormal chest x-ray with bilateral interstitial infiltrates, suggestive of COVID-19 pneumonia. 3. No significant tobacco history. 4. Acute kidney injury. Could be acute kidney injury on chronic kidney disease. 5. Severe protein-calorie malnutrition. 6. Abnormal D-dimer, likely related to COVID pneumonia. RECOMMENDATIONS: 1. Discussed with the patient about advanced directives; he was not so clear about it. At this time, I will transfer him to the ICU and initiate Vapotherm. 2. Add steroids for COVID-19 pneumonia. 3. Continue DVT prophylaxis high dose and monitor D-dimers. 4. Add empiric antibiotics. 5. Hold oral Lasix. 6. Follow renal recommendations. 7. We will call the patient's family. Discussed with RN. We will transfer the patient to the ICU. TOTAL CRITICAL CARE TIME: 37 minutes. ABBY MOORE MD DR: KORY/monisha JOB#: [id number] / [id number]
[2019-11-30] MEDS: THIAMINE INJ 200 MG in IV DEXTROSE 5% 50 ML IV SCH ×2 (09:56→22:14)
[2019-11-30] MEDS: methylPREDNISolone SOD SUCC PF 125 MG/2 ML VIAL. IV SCH ×3 (09:56→22:17)
--- NOTE | 2019-11-30 10:11 | NUR ---
Call was placed to Dr Rosales at beginning of my shift with request for pulmonary consultation. Pt is now on non-rebreather and sats are 85%. Received orders for pulmonary and nephrology consults. Dr Qiu here to see pt and requested transfer to ICU. Dr Qiu will contact . Report was given to Bethanie CANTOR in ICU. Prior to transfering, pt was able to talk to and kids on cell phone. Sats did start dropping into the 70s on non-rebreather. Pt transferred to ICU bed 114 and transfer was uneventful. Pt transferred at 0945.
--- NOTE | 2019-11-30 11:47 | PDOC2 ---
CONSULT Date of Consult Date of Consult DATE: 11/30/19 TIME: 11:47 Reason for Consult Reason for Consult: CHAYITO History of Present Illness Reason for Visit: Pt is a 69yo CM w/ PMHx Diabetes-Type II, Hypertension who was in his usual state of health until 2 days prior to this admission . He was evaluated at and found to be positive for COVID 19 virus, he was discharged and given instructions to follow up in the nearest medical center if symptoms worsen. He came to [facility] ER as felt worse and more dyspneic . In the ER he initially was on 1 liter of oxygen. He had Progressive worsening shortness of breath , Cough . His O2 requirement increased from 6 L nasal cannula overnight to 15 L nonrebreather facemask. He was transferred to ICU . Currently he is on Vapotherm . No N/V/D. No abdominal pain. He was Febrile Overnight with temp of 101.3 . No urinary complaints . Doesn't have Pringle . No neurological symptoms. He has been refusing convalescent FFP . Past Medical History Cardiovascular: HTN, Hyperlipidemia Pulmonary: Other CENTRAL NERVOUS SYSTEM: Other GI: No pertinent hx Heme/Onc: No pertinent hx Hepatobiliary: No pertinent hx Psych: No pertinent hx Musculoskeletal: Osteoarthritis Rheumatologic: No pertinent hx Infectious disease: No pertinent hx Renal/: Benign prostatic enlarg. Endocrine: Diabetes Past Surgical History Past Surgical History: Arthroscopy, Other Family History Family History: Coronary Artery Disease Social History No ALCOHOL: none Drugs: None Lives: with Family Current Problem List Problem List Problems Medical Problems: (1) ARF (acute renal failure) Status: Acute (2) Fever Status: Acute (3) Hypoxemia Status: Acute (4) Sepsis Status: Acute Current Medications Current Medications Current Medications Ondansetron HCl (Zofran) 4 mg 1X ONCE IV Last administered on 11/28/19at 16:25; Start 11/28/19 at 15:30; Stop 11/28/19 at 15:36; Status DC Acetaminophen (Tylenol) 1,000 mg 1X ONCE PO Last administered on 11/28/19at 16:25; Start 11/28/19 at 15:45; Stop 11/28/19 at 16:03; Status DC Acetaminophen (Tylenol) 650 mg PRN Q6HRS PRN PO Headaches, Temp > 101.5' Last administered on 11/30/19at 08:45; Start 11/28/19 at 17:45 Lorazepam (Ativan Inj) 0.5 mg PRN Q6HRS PRN IVP ANXIETY / AGITATION; Start 11/28/19 at 17:45 Ondansetron HCl (Zofran) 4 mg PRN Q6HRS PRN IVP NAUSEA/VOMITING; Start 11/28/19 at 17:45 Famotidine (Pepcid Vial) 20 mg BID IVP Last administered on 11/30/19at 08:46; Start 11/28/19 at 21:00 Info (Icu Electrolyte Protocol) 1 ea DAILY MC ; Start 11/29/19 at 09:00; Stop 11/28/19 at 18:16; Status DC Enoxaparin Sodium (Lovenox 40mg Syringe) 150 mg Q12HR SQ ; Start 11/28/19 at 21:00; Stop 11/28/19 at 18:16; Status DC Sodium Chloride (Normal Saline Flush) 3 ml QSHIFT PRN IV AFTER MEDS AND BLOOD DRAWS; Start 11/28/19 at 17:45 Acetaminophen/ Hydrocodone Bitart (Lortab 5/325) 1 tab PRN Q4HRS PRN PO MILD PAIN, 2ND CHOICE; Start 11/28/19 at 17:45 Morphine Sulfate (Morphine Sulfate) 1 mg PRN Q1HR PRN IV PAIN; Start 11/28/19 at 17:45 Senna/Docusate Sodium (Senna Plus) 1 tab BID PO Last administered on 11/30/19at 08:45; Start 11/28/19 at 21:00 Lactulose (Lactulose) 20 gm PRN Q12HR PRN PO CONSTIPATION; Start 11/28/19 at 17:45 Amlodipine Besylate (Norvasc) 5 mg DAILY PO Last administered on 11/30/19at 08:45; Start 11/29/19 at 09:00 Aspirin (Aspirin Chewable) 81 mg DAILY PO Last administered on 11/30/19at 08:44; Start 11/29/19 at 09:00 Furosemide (Lasix) 20 mg DAILY PO Last administered on 11/30/19at 08:45; Start 11/29/19 at 09:00 Glipizide (Glucotrol) 2.5 mg DAILY PO Last administered on 11/30/19at 08:44; Start 11/29/19 at 09:00 Acetaminophen/ Hydrocodone Bitart (Lortab 5/325) 1 tab PRN Q6HRS PRN PO PAIN; Start 11/28/19 at 17:45; Status UNV Lisinopril (Prinivil) 40 mg DAILY PO Last administered on 11/29/19at 09:31; Start 11/29/19 at 09:00 Tamsulosin HCl (Flomax) 0.4 mg DAILY PO Last administered on 11/30/19at 08:45; Start 11/29/19 at 09:00 Hydrochlorothiazide (Hydrodiuril) 25 mg DAILY PO Last administered on 11/30/19at 08:44; Start 11/29/19 at 09:00 Cyclobenzaprine HCl (Flexeril) 10 mg TID PO Last administered on 11/30/19 08:45; Start 11/28/19 at 21:00 Magnesium Sulfate 50 ml @ 25 mls/hr 1X ONCE IV Last administered on 11/28/19at 19:10; Start 11/28/19 at 19:00; Stop 11/28/19 at 20:59; Status DC Zinc Sulfate (Orazinc) 220 mg DAILY PO Last administered on 11/30/19 08:45; Start 11/29/19 at 09:00 Ascorbic Acid (Vitamin C) 500 mg Q6HRS PO Last administered on 11/30/19at 02:58; Start 11/29/19 at 00:00 Vitamin D (Vitamin D3) 1,000 unit BID PO Last administered on 11/30/19at 08:44; Start 11/28/19 at 21:00 Atorvastatin Calcium (Lipitor) 40 mg QHS PO Last administered on 11/29/19at 20:52; Start 11/28/19 at 21:00 Enoxaparin Sodium (Lovenox 80mg Syringe) 80 mg 1X ONCE SQ Last administered on 11/28/19at 19:10; Start 11/28/19 at 19:00; Stop 11/28/19 at 19:01; Status DC Enoxaparin Sodium (Lovenox 40mg Syringe) 40 mg Q12HR SQ Last administered on 11/29/19at 20:52; Start 11/29/19 at 09:00; Stop 11/30/19 at 10:00; Status DC Thiamine HCl 200 mg/Dextrose 52 ml @ 102 mls/hr Q12HR IV Last administered on 11/30/19at 09:56; Start 11/28/19 at 19:30 Potassium Chloride (Klor-Con) 40 meq 1X ONCE PO Last administered on 11/29/19at 17:15; Start 11/29/19 at 16:45; Stop 11/29/19 at 16:46; Status DC Methylprednisolone Sodium Succinate (SOLU-Medrol 125MG VIAL) 60 mg Q8HRS IV Last administered on 11/30/19at 09:56; Start 11/30/19 at 09:00 Piperacillin Sod/ Tazobactam Sod (Zosyn Per Pharmacy) 1 each PRN DAILY PRN MC SEE COMMENTS; Start 11/30/19 at 08:45 Piperacillin Sod/ Tazobactam Sod 3.375 gm/Sodium Chloride 50 ml @ 100 mls/hr Q6HRS IV ; Start 11/30/19 at 12:00 Heparin Sodium (Porcine) (Heparin Sodium) 5,000 unit Q8HRS SQ ; Start 11/30/19 at 14:00 Active Scripts Active [place] 5-325 Tablet (Acetaminophen/Hydrocodone Bitart) 1 Each Tablet 1 Tab PO PRN Q6HRS PRN Orphenadrine Citrate 100 Mg Tablet.er 1 Tab PO BID Amlodipine Besylate 5 Mg Tablet 5 Mg PO DAILY Reported Lisinopril 40 Mg Tablet 40 Mg PO DAILY Glipizide 5 Mg Tablet 2.5 Mg PO DAILY Hydrochlorothiazide Tablet (Hydrochlorothiazide) 12.5 Mg Tablet 25 Mg PO DAILY Furosemide 20 Mg Tablet 20 Mg PO DAILY Tamsulosin Hcl 0.4 Mg Cap.er.24h 1 Cap PO DAILY Aspirin 81 Mg Tab.chew 81 Mg PO DAILY Metformin Hcl 500 Mg Tablet 500 Mg PO DAILY Allergies Allergies: Coded Allergies: No Known Drug Allergies (Unverified , 02/18/17) ROS Review of System Per HPI, Rest of the ROS is negative Physical Exam Physical Exam Visual exam during Covid Pandemic and dw RN GEN.: No apparent distress. Propped up in bed HEENT: Head is normocephalic, atraumatic, NECK: Supple. LUNGS: Bibasilar rales , No use of accessory muscles HEART: RRR, S1, S2 present. ABDOMEN: obese, Soft EXTREMITIES: Without any cyanosis, Trace Bilat LE edema + NEUROLOGIC: AxO, moving all 4 extremities SKIN: No rash No Pringle Vital Signs Vital Signs Date Time Temp Pulse Resp B/P (MAP) Pulse Ox O2 Delivery O2 Flow Rate FiO2 11/30/19 08:45 90 155/67 11/30/19 08:00 Non-Rebreather 15.0 11/30/19 07:38 99.8 20 94 99.8 Assessment & Plan CHAYITO - suspect ATN , worsening renal function 2.3-->4.1 Check UA, elective US- if no improvement in renal function , Pringle (for accurate I/O) or Bladder scan prn E-lytes stable, No Uremic symptoms or signs Supportive care, Strict I/O, Avoid Nephrotoxins, Hold HCTZ, PRESTON-I and Lasix , monitor CKD stage 3- Cr in [facility] records 1.3 in 2017 No Interval labs Acute hypoxic respiratory failure secondary to COVID-19 pneumonia/acute lung injury/early acute respiratory distress syndrome. Abnormal chest x-ray with bilateral interstitial infiltrates. Started on Steroids, On Vapotherm Abnormal D-dimer, likely related to COVID pneumonia. Diabetes-Type II Hypertension Severe protein calorie malnutrition Dw RN Labs Labs Laboratory Tests Test 11/28/19 15:30 11/29/19 03:40 11/29/19 07:21 11/29/19 10:22 White Blood Count 10.4 x10^3/uL (4.0-11.0) 9.1 x10^3/uL (4.0-11.0) Red Blood Count 4.16 x10^6/uL (4.30-5.70) 3.90 x10^6/uL (4.30-5.70) Hemoglobin 12.7 g/dL (13.0-17.5) 11.9 g/dL (13.0-17.5) Hematocrit 38.1 % (39.0-53.0) 35.8 % (39.0-53.0) Mean Corpuscular Volume 92 fL (79-100) 92 fL (79-100) Mean Corpuscular Hemoglobin 31 pg (25-35) 31 pg (25-35) Mean Corpuscular Hemoglobin Concent 33 g/dL (31-37) 33 g/dL (31-37) Red Cell Distribution Width 13.7 % (11.5-14.5) 13.7 % (11.5-14.5) Platelet Count 198 x10^3/uL (140-400) 189 x10^3/uL (140-400) Neutrophils (%) (Auto) 84 % (31-73) 85 % (31-73) Lymphocytes (%) (Auto) 9 % (24-48) 8 % (24-48) Monocytes (%) (Auto) 7 % (0-9) 7 % (0-9) Eosinophils (%) (Auto) 0 % (0-3) 0 % (0-3) Basophils (%) (Auto) 1 % (0-3) 0 % (0-3) Neutrophils # (Auto) 8.7 x10^3/uL (1.8-7.7) 7.7 x10^3/uL (1.8-7.7) Lymphocytes # (Auto) 0.9 x10^3/uL (1.0-4.8) 0.7 x10^3/uL (1.0-4.8) Monocytes # (Auto) 0.7 x10^3/uL (0.0-1.1) 0.6 x10^3/uL (0.0-1.1) Eosinophils # (Auto) 0.0 x10^3/uL (0.0-0.7) 0.0 x10^3/uL (0.0-0.7) Basophils # (Auto) 0.1 x10^3/uL (0.0-0.2) 0.0 x10^3/uL (0.0-0.2) Prothrombin Time 15.3 SEC (11.7-14.0) 16.3 SEC (11.7-14.0) Prothromb Time International Ratio 1.3 (0.8-1.1) 1.4 (0.8-1.1) D-Dimer (Natty) 0.70 ug/mlFEU (0.00-0.50) Sodium Level 136 mmol/L (136-145) 137 mmol/L (136-145) Potassium Level 3.5 mmol/L (3.5-5.1) 3.4 mmol/L (3.5-5.1) Chloride Level 97 mmol/L (98-107) 100 mmol/L (98-107) Carbon Dioxide Level 29 mmol/L (21-32) 32 mmol/L (21-32) Anion Gap 10 (6-14) 5 (6-14) Blood Urea Nitrogen 31 mg/dL (8-26) 39 mg/dL (8-26) Creatinine 2.3 mg/dL (0.7-1.3) 2.8 mg/dL (0.7-1.3) Estimated GFR (Cockcroft-Gault) 34.3 27.3 BUN/Creatinine Ratio 13 (6-20) Glucose Level 320 mg/dL (70-99) 240 mg/dL (70-99) Lactic Acid Level 2.1 mmol/L (0.4-2.0) 1.0 mmol/L (0.4-2.0) Calcium Level 8.8 mg/dL (8.5-10.1) 8.2 mg/dL (8.5-10.1) Magnesium Level 1.8 mg/dL (1.8-2.4) Ferritin 1410 ng/mL (26-388) Total Bilirubin 0.9 mg/dL (0.2-1.0) Aspartate Amino Transf (AST/SGOT) 62 U/L (15-37) Alanine Aminotransferase (ALT/SGPT) 89 U/L (16-63) Alkaline Phosphatase 63 U/L (46-116) Creatine Kinase 138 U/L (39-308) C-Reactive Protein, Quantitative 239.2 mg/L (0-3.3) Total Protein 7.5 g/dL (6.4-8.2) Albumin 2.3 g/dL (3.4-5.0) Albumin/Globulin Ratio 0.4 (1.0-1.7) Lipase 253 U/L (73-393) Procalcitonin 0.55 ng/mL (0.00-0.10) Glucose (Fingerstick) 208 mg/dL (70-99) 218 mg/dL (70-99) Test 11/29/19 16:19 11/29/19 21:26 11/30/19 03:50 11/30/19 07:26 Glucose (Fingerstick) 138 mg/dL (70-99) 119 mg/dL (70-99) 91 mg/dL (70-99) White Blood Count 8.0 x10^3/uL (4.0-11.0) Red Blood Count 3.76 x10^6/uL (4.30-5.70) Hemoglobin 11.5 g/dL (13.0-17.5) Hematocrit 34.9 % (39.0-53.0) Mean Corpuscular Volume 93 fL (79-100) Mean Corpuscular Hemoglobin 31 pg (25-35) Mean Corpuscular Hemoglobin Concent 33 g/dL (31-37) Red Cell Distribution Width 13.6 % (11.5-14.5) Platelet Count 183 x10^3/uL (140-400) Neutrophils (%) (Auto) 75 % (31-73) Lymphocytes (%) (Auto) 17 % (24-48) Monocytes (%) (Auto) 7 % (0-9) Eosinophils (%) (Auto) 1 % (0-3) Basophils (%) (Auto) 0 % (0-3) Neutrophils # (Auto) 5.9 x10^3/uL (1.8-7.7) Lymphocytes # (Auto) 1.4 x10^3/uL (1.0-4.8) Monocytes # (Auto) 0.6 x10^3/uL (0.0-1.1) Eosinophils # (Auto) 0.1 x10^3/uL (0.0-0.7) Basophils # (Auto) 0.0 x10^3/uL (0.0-0.2) Sodium Level 135 mmol/L (136-145) Potassium Level 3.7 mmol/L (3.5-5.1) Chloride Level 100 mmol/L (98-107) Carbon Dioxide Level 28 mmol/L (21-32) Anion Gap 7 (6-14) Blood Urea Nitrogen 56 mg/dL (8-26) Creatinine 4.1 mg/dL (0.7-1.3) Estimated GFR (Cockcroft-Gault) 17.6 BUN/Creatinine Ratio 14 (6-20) Glucose Level 122 mg/dL (70-99) Calcium Level 8.4 mg/dL (8.5-10.1) Total Bilirubin 0.4 mg/dL (0.2-1.0) Aspartate Amino Transf (AST/SGOT) 44 U/L (15-37) Alanine Aminotransferase (ALT/SGPT) 49 U/L (16-63) Alkaline Phosphatase 52 U/L (46-116) Total Protein 6.7 g/dL (6.4-8.2) Albumin 1.8 g/dL (3.4-5.0) Albumin/Globulin Ratio 0.4 (1.0-1.7) Test 11/30/19 10:15 D-Dimer (Natty) 1.24 ug/mlFEU (0.00-0.50) Laboratory Tests Test 11/29/19 16:19 11/29/19 21:26 11/30/19 03:50 11/30/19 07:26 Glucose (Fingerstick) 138 mg/dL (70-99) 119 mg/dL (70-99) 91 mg/dL (70-99) White Blood Count 8.0 x10^3/uL (4.0-11.0) Red Blood Count 3.76 x10^6/uL (4.30-5.70) Hemoglobin 11.5 g/dL (13.0-17.5) Hematocrit 34.9 % (39.0-53.0) Mean Corpuscular Volume 93 fL (79-100) Mean Corpuscular Hemoglobin 31 pg (25-35) Mean Corpuscular Hemoglobin Concent 33 g/dL (31-37) Red Cell Distribution Width 13.6 % (11.5-14.5) Platelet Count 183 x10^3/uL (140-400) Neutrophils (%) (Auto) 75 % (31-73) Lymphocytes (%) (Auto) 17 % (24-48) Monocytes (%) (Auto) 7 % (0-9) Eosinophils (%) (Auto) 1 % (0-3) Basophils (%) (Auto) 0 % (0-3) Neutrophils # (Auto) 5.9 x10^3/uL (1.8-7.7) Lymphocytes # (Auto) 1.4 x10^3/uL (1.0-4.8) Monocytes # (Auto) 0.6 x10^3/uL (0.0-1.1) Eosinophils # (Auto) 0.1 x10^3/uL (0.0-0.7) Basophils # (Auto) 0.0 x10^3/uL (0.0-0.2) Sodium Level 135 mmol/L (136-145) Potassium Level 3.7 mmol/L (3.5-5.1) Chloride Level 100 mmol/L (98-107) Carbon Dioxide Level 28 mmol/L (21-32) Anion Gap 7 (6-14) Blood Urea Nitrogen 56 mg/dL (8-26) Creatinine 4.1 mg/dL (0.7-1.3) Estimated GFR (Cockcroft-Gault) 17.6 BUN/Creatinine Ratio 14 (6-20) Glucose Level 122 mg/dL (70-99) Calcium Level 8.4 mg/dL (8.5-10.1) Total Bilirubin 0.4 mg/dL (0.2-1.0) Aspartate Amino Transf (AST/SGOT) 44 U/L (15-37) Alanine Aminotransferase (ALT/SGPT) 49 U/L (16-63) Alkaline Phosphatase 52 U/L (46-116) Total Protein 6.7 g/dL (6.4-8.2) Albumin 1.8 g/dL (3.4-5.0) Albumin/Globulin Ratio 0.4 (1.0-1.7) Test 11/30/19 10:15 D-Dimer (Natty) 1.24 ug/mlFEU (0.00-0.50) Review All relevant outside records, renal labs, imaging studies, telemetry/EKG's were reviewed. Images Images Cxr The cardiac silhouette is mildly enlarged. The thoracic aorta is mildly tortuous. Bilateral perihilar infiltrates are seen. No pneumothorax or definite pleural effusion is noted. Degenerative changes are seen involving the thoracic spine and both shoulders. Impression: Bilateral perihilar infiltrates. YUDY MARTINEZ MD Nov 30, 2019 11:47
[2019-11-30] MEDS: PIPERACILLIN/TAZOBACTAM 3.375 GM in IV NORMAL SALINE 50ML 50 ML IV SCH ×2 (12:00→18:24)
[2019-11-30] MEDS: HEPARIN for SUB-Q USE 5,000 UNIT/ML VIAL. SQ SCH ×2 (14:00→22:19)
[2019-11-30 17:52] LABS: BILIRUBIN,URINE NEGATIVE (NEG); CLARITY,URINE CLOUDY; COLOR,URINE YELLOW; NITRITE,URINE NEGATIVE (NEG); PROTEIN,URINE 30 mg/dL (NEG-TRACE)
[2019-11-30 17:59] LABS: BACTERIA,URINE 0 /HPF (0-FEW); RBC,URINE 0 /HPF (0-2); WBC,URINE 0 /HPF (0-4)
[2019-11-30 18:00] LABS: AMORPHOUS SEDIMENT,UR PRESENT /HPF
--- NOTE | 2019-11-30 20:18 | NUR ---
Please send pt's scheduled dose of thiamine as I checked the fridge and I didn't see one there. Thank you!
[2019-11-30] MEDS: ATORVASTATIN CALCIUM 40 MG TABLET. PO SCH (22:17)
[2019-12-01] VITALS (24 sets, daily range): BP systolic 99–149; BP diastolic 53–116
[2019-12-01] MEDS: PIPERACILLIN/TAZOBACTAM 3.375 GM in IV NORMAL SALINE 50ML 50 ML IV SCH ×4 (01:29→17:51)
[2019-12-01] MEDS: ASCORBIC ACID 500 MG TABLET PO SCH ×4 (01:29→17:26)
[2019-12-01 04:53] LABS: BILIRUBIN,URINE NEGATIVE (NEG); CLARITY,URINE CLOUDY; COLOR,URINE YELLOW; NITRITE,URINE NEGATIVE (NEG); PROTEIN,URINE 30 mg/dL (NEG-TRACE); UROBILINOGEN,URINE 0.2 mg/dL (0.2 mg/dL)
[2019-12-01 05:01] LABS: SQUAMOUS EPITHELIAL CELL,UR FEW /LPF
[2019-12-01 05:02] LABS: RBC,URINE 20-40 /HPF (0-2)
[2019-12-01 05:03] LABS: AMORPHOUS SEDIMENT,UR PRESENT /HPF; GRANULAR CASTS,URINE FEW /HPF
[2019-12-01 05:04] LABS: BACTERIA,URINE FEW /HPF (0-FEW)
[2019-12-01] MEDS: methylPREDNISolone SOD SUCC PF 125 MG/2 ML VIAL. IV SCH ×3 (05:47→21:17)
[2019-12-01] MEDS: HEPARIN for SUB-Q USE 5,000 UNIT/ML VIAL. SQ SCH ×3 (05:48→21:16)
[2019-12-01] MEDS: ASPIRIN CHEWABLE 81 MG TABLET. PO SCH (08:17)
[2019-12-01] MEDS: hydroCHLOROthiazide 25 MG TABLET PO SCH (08:17)
[2019-12-01] MEDS: CHOLECALCIFEROL (VITAMIN D3) 1,000 UNIT TABLET PO SCH ×2 (08:17→21:17)
[2019-12-01] MEDS: amLODIPine BESYLATE 5 MG TABLET PO SCH (08:17)
[2019-12-01] MEDS: TAMSULOSIN 0.4 MG CAP.ER.24H. PO SCH (08:17)
[2019-12-01] MEDS: SENNOSIDES/DOCUSATE 8.6/50MG TABLET. PO SCH ×2 (08:17→21:17)
[2019-12-01] MEDS: LISINOPRIL 20 MG TABLET PO SCH (08:19)
[2019-12-01] MEDS: ZINC SULFATE 220 MG CAPSULE. PO SCH (08:19)
[2019-12-01] MEDS: FUROSEMIDE 20 MG TABLET PO SCH (08:19)
[2019-12-01] MEDS: FAMOTIDINE 20 MG/2 ML VIAL IVP SCH ×2 (08:20→21:17)
[2019-12-01] MEDS: CYCLOBENZAPRINE 10 MG TABLET. PO SCH ×3 (09:00→21:00)
[2019-12-01] MEDS: THIAMINE INJ 200 MG in IV DEXTROSE 5% 50 ML IV SCH ×2 (09:35→21:17)
[2019-12-01 09:42] LABS: BASO % 0 % (0-3); EOS % 0 % (0-3); HEMATOCRIT 34.7 % (39.0-53.0); HEMOGLOBIN 11.2 g/dL (13.0-17.5); LYMPH # 1.1 x10^3/uL (1.0-4.8); LYMPH % 17 % (24-48); MEAN CORPUSCULAR HEMOGLOBIN 30 pg (25-35); MEAN CORPUSCULAR HGB CONC 32 g/dL (31-37); MEAN CORPUSCULAR VOLUME 93 fL (79-100); MONO # 0.2 x10^3/uL (0.0-1.1); MONO % 3 % (0-9); NEUT # 5.4 x10^3/uL (1.8-7.7); NEUT % 80 % (31-73); PLATELET COUNT 180 x10^3/uL (140-400); RED BLOOD COUNT 3.72 x10^6/uL (4.30-5.70); RED CELL DISTRIBUTION WIDTH 13.6 % (11.5-14.5); WHITE BLOOD COUNT 6.8 x10^3/uL (4.0-11.0)
[2019-12-01 09:53] LABS: ALBUMIN 1.7 g/dL (3.4-5.0); ALBUMIN/GLOBULIN RATIO 0.3 (1.0-1.7); CALCIUM 7.8 mg/dL (8.5-10.1); CREATININE 4.3 mg/dL (0.7-1.3); GFR 16.7; TOTAL BILIRUBIN 0.4 mg/dL (0.2-1.0); TOTAL PROTEIN 6.7 g/dL (6.4-8.2)
--- NOTE | 2019-12-01 11:05 | NUR ---
SS following for discharge planning. SS reviewed pt chart and discussed with pt RN. Pt is from home with spouse and is currently on Vapotherm. COVID19 positive. Pt on IV Zosyn. SS will continue to follow for discharge planning.
--- NOTE | 2019-12-01 11:41 | PDOC ---
PULMONARY PROGRESS NOTES DATE: 12/01/19 TIME: 11:39 Subjective comfortable on vapotherm Vitals Vital Signs Date Time Temp Pulse Resp B/P (MAP) Pulse Ox O2 Delivery O2 Flow Rate FiO2 12/01/19 10:00 69 35 113/70 (84) 93 vapo therm 40l /100% 40.0 12/01/19 08:00 97.5 97.5 Comments visual exam done no soa, no skin rash Lungs: Wheezing, Crackles Cardiovascular: S1, S2 Labs Laboratory Tests Test 11/29/19 16:19 11/29/19 21:26 11/30/19 03:50 11/30/19 07:26 Glucose (Fingerstick) 138 mg/dL (70-99) 119 mg/dL (70-99) 91 mg/dL (70-99) White Blood Count 8.0 x10^3/uL (4.0-11.0) Red Blood Count 3.76 x10^6/uL (4.30-5.70) Hemoglobin 11.5 g/dL (13.0-17.5) Hematocrit 34.9 % (39.0-53.0) Mean Corpuscular Volume 93 fL (79-100) Mean Corpuscular Hemoglobin 31 pg (25-35) Mean Corpuscular Hemoglobin Concent 33 g/dL (31-37) Red Cell Distribution Width 13.6 % (11.5-14.5) Platelet Count 183 x10^3/uL (140-400) Neutrophils (%) (Auto) 75 % (31-73) Lymphocytes (%) (Auto) 17 % (24-48) Monocytes (%) (Auto) 7 % (0-9) Eosinophils (%) (Auto) 1 % (0-3) Basophils (%) (Auto) 0 % (0-3) Neutrophils # (Auto) 5.9 x10^3/uL (1.8-7.7) Lymphocytes # (Auto) 1.4 x10^3/uL (1.0-4.8) Monocytes # (Auto) 0.6 x10^3/uL (0.0-1.1) Eosinophils # (Auto) 0.1 x10^3/uL (0.0-0.7) Basophils # (Auto) 0.0 x10^3/uL (0.0-0.2) Sodium Level 135 mmol/L (136-145) Potassium Level 3.7 mmol/L (3.5-5.1) Chloride Level 100 mmol/L (98-107) Carbon Dioxide Level 28 mmol/L (21-32) Anion Gap 7 (6-14) Blood Urea Nitrogen 56 mg/dL (8-26) Creatinine 4.1 mg/dL (0.7-1.3) Estimated GFR (Cockcroft-Gault) 17.6 BUN/Creatinine Ratio 14 (6-20) Glucose Level 122 mg/dL (70-99) Calcium Level 8.4 mg/dL (8.5-10.1) Total Bilirubin 0.4 mg/dL (0.2-1.0) Aspartate Amino Transf (AST/SGOT) 44 U/L (15-37) Alanine Aminotransferase (ALT/SGPT) 49 U/L (16-63) Alkaline Phosphatase 52 U/L (46-116) Creatine Kinase 194 U/L (39-308) Total Protein 6.7 g/dL (6.4-8.2) Albumin 1.8 g/dL (3.4-5.0) Albumin/Globulin Ratio 0.4 (1.0-1.7) Test 11/30/19 10:15 11/30/19 14:11 11/30/19 17:40 11/30/19 22:36 D-Dimer (Natty) 1.24 ug/mlFEU (0.00-0.50) Glucose (Fingerstick) 76 mg/dL (70-99) 212 mg/dL (70-99) Urine Collection Type U cath Urine Color Yellow Urine Clarity Cloudy Urine pH 5.0 (<5.0-8.0) Urine Specific [place] 1.015 (1.000-1.030) Urine Protein 30 mg/dL (NEG-TRACE) Urine Glucose (UA) Negative mg/dL (NEG) Urine Ketones (Stick) Negative mg/dL (NEG) Urine Blood Negative (NEG) Urine Nitrite Negative (NEG) Urine Bilirubin Negative (NEG) Urine Urobilinogen Dipstick 1.0 mg/dL (0.2 mg/dL) Urine Leukocyte Esterase Negative (NEG) Urine RBC 0 /HPF (0-2) Urine WBC 0 /HPF (0-4) Urine Amorphous Sediment Present /HPF Urine Bacteria 0 /HPF (0-FEW) Test 12/01/19 02:30 12/01/19 08:30 12/01/19 09:00 Urine Collection Type Unknown Urine Color Yellow Urine Clarity Cloudy Urine pH 5.0 (<5.0-8.0) Urine Specific [place] 1.015 (1.000-1.030) Urine Protein 30 mg/dL (NEG-TRACE) Urine Glucose (UA) Negative mg/dL (NEG) Urine Ketones (Stick) Negative mg/dL (NEG) Urine Blood Large (NEG) Urine Nitrite Negative (NEG) Urine Bilirubin Negative (NEG) Urine Urobilinogen Dipstick 0.2 mg/dL (0.2 mg/dL) Urine Leukocyte Esterase Trace (NEG) Urine RBC 20-40 /HPF (0-2) Urine WBC 1-4 /HPF (0-4) Urine Squamous Epithelial Cells Few /LPF Urine Amorphous Sediment Present /HPF Urine Bacteria Few /HPF (0-FEW) Urine Granular Casts Few /HPF Urine Mucus Slight /LPF Glucose (Fingerstick) 335 mg/dL (70-99) White Blood Count 6.8 x10^3/uL (4.0-11.0) Red Blood Count 3.72 x10^6/uL (4.30-5.70) Hemoglobin 11.2 g/dL (13.0-17.5) Hematocrit 34.7 % (39.0-53.0) Mean Corpuscular Volume 93 fL (79-100) Mean Corpuscular Hemoglobin 30 pg (25-35) Mean Corpuscular Hemoglobin Concent 32 g/dL (31-37) Red Cell Distribution Width 13.6 % (11.5-14.5) Platelet Count 180 x10^3/uL (140-400) Neutrophils (%) (Auto) 80 % (31-73) Lymphocytes (%) (Auto) 17 % (24-48) Monocytes (%) (Auto) 3 % (0-9) Eosinophils (%) (Auto) 0 % (0-3) Basophils (%) (Auto) 0 % (0-3) Neutrophils # (Auto) 5.4 x10^3/uL (1.8-7.7) Lymphocytes # (Auto) 1.1 x10^3/uL (1.0-4.8) Monocytes # (Auto) 0.2 x10^3/uL (0.0-1.1) Eosinophils # (Auto) 0.0 x10^3/uL (0.0-0.7) Basophils # (Auto) 0.0 x10^3/uL (0.0-0.2) Sodium Level 136 mmol/L (136-145) Potassium Level 4.0 mmol/L (3.5-5.1) Chloride Level 98 mmol/L (98-107) Carbon Dioxide Level 29 mmol/L (21-32) Anion Gap 9 (6-14) Blood Urea Nitrogen 65 mg/dL (8-26) Creatinine 4.3 mg/dL (0.7-1.3) Estimated GFR (Cockcroft-Gault) 16.7 BUN/Creatinine Ratio 15 (6-20) Glucose Level 342 mg/dL (70-99) Calcium Level 7.8 mg/dL (8.5-10.1) Total Bilirubin 0.4 mg/dL (0.2-1.0) Aspartate Amino Transf (AST/SGOT) 37 U/L (15-37) Alanine Aminotransferase (ALT/SGPT) 40 U/L (16-63) Alkaline Phosphatase 53 U/L (46-116) Total Protein 6.7 g/dL (6.4-8.2) Albumin 1.7 g/dL (3.4-5.0) Albumin/Globulin Ratio 0.3 (1.0-1.7) Laboratory Tests Test 11/30/19 14:11 11/30/19 17:40 11/30/19 22:36 12/01/19 02:30 Glucose (Fingerstick) 76 mg/dL (70-99) 212 mg/dL (70-99) Urine Collection Type U cath Unknown Urine Color Yellow Yellow Urine Clarity Cloudy Cloudy Urine pH 5.0 (<5.0-8.0) 5.0 (<5.0-8.0) Urine Specific [place] 1.015 (1.000-1.030) 1.015 (1.000-1.030) Urine Protein 30 mg/dL (NEG-TRACE) 30 mg/dL (NEG-TRACE) Urine Glucose (UA) Negative mg/dL (NEG) Negative mg/dL (NEG) Urine Ketones (Stick) Negative mg/dL (NEG) Negative mg/dL (NEG) Urine Blood Negative (NEG) Large (NEG) Urine Nitrite Negative (NEG) Negative (NEG) Urine Bilirubin Negative (NEG) Negative (NEG) Urine Urobilinogen Dipstick 1.0 mg/dL (0.2 mg/dL) 0.2 mg/dL (0.2 mg/dL) Urine Leukocyte Esterase Negative (NEG) Trace (NEG) Urine RBC 0 /HPF (0-2) 20-40 /HPF (0-2) Urine WBC 0 /HPF (0-4) 1-4 /HPF (0-4) Urine Amorphous Sediment Present /HPF Present /HPF Urine Bacteria 0 /HPF (0-FEW) Few /HPF (0-FEW) Urine Squamous Epithelial Cells Few /LPF Urine Granular Casts Few /HPF Urine Mucus Slight /LPF Test 12/01/19 08:30 12/01/19 09:00 Glucose (Fingerstick) 335 mg/dL (70-99) White Blood Count 6.8 x10^3/uL (4.0-11.0) Red Blood Count 3.72 x10^6/uL (4.30-5.70) Hemoglobin 11.2 g/dL (13.0-17.5) Hematocrit 34.7 % (39.0-53.0) Mean Corpuscular Volume 93 fL (79-100) Mean Corpuscular Hemoglobin 30 pg (25-35) Mean Corpuscular Hemoglobin Concent 32 g/dL (31-37) Red Cell Distribution Width 13.6 % (11.5-14.5) Platelet Count 180 x10^3/uL (140-400) Neutrophils (%) (Auto) 80 % (31-73) Lymphocytes (%) (Auto) 17 % (24-48) Monocytes (%) (Auto) 3 % (0-9) Eosinophils (%) (Auto) 0 % (0-3) Basophils (%) (Auto) 0 % (0-3) Neutrophils # (Auto) 5.4 x10^3/uL (1.8-7.7) Lymphocytes # (Auto) 1.1 x10^3/uL (1.0-4.8) Monocytes # (Auto) 0.2 x10^3/uL (0.0-1.1) Eosinophils # (Auto) 0.0 x10^3/uL (0.0-0.7) Basophils # (Auto) 0.0 x10^3/uL (0.0-0.2) Sodium Level 136 mmol/L (136-145) Potassium Level 4.0 mmol/L (3.5-5.1) Chloride Level 98 mmol/L (98-107) Carbon Dioxide Level 29 mmol/L (21-32) Anion Gap 9 (6-14) Blood Urea Nitrogen 65 mg/dL (8-26) Creatinine 4.3 mg/dL (0.7-1.3) Estimated GFR (Cockcroft-Gault) 16.7 BUN/Creatinine Ratio 15 (6-20) Glucose Level 342 mg/dL (70-99) Calcium Level 7.8 mg/dL (8.5-10.1) Total Bilirubin 0.4 mg/dL (0.2-1.0) Aspartate Amino Transf (AST/SGOT) 37 U/L (15-37) Alanine Aminotransferase (ALT/SGPT) 40 U/L (16-63) Alkaline Phosphatase 53 U/L (46-116) Total Protein 6.7 g/dL (6.4-8.2) Albumin 1.7 g/dL (3.4-5.0) Albumin/Globulin Ratio 0.3 (1.0-1.7) Medications Active Scripts Medications Dose Route/Sig Max Daily Dose Days Date Category [place] 5-325 Tablet (Acetaminophen/Hydrocodone Bitart) 1 Each Tablet 1 Tab PO PRN Q6HRS PRN 03/20/18 Rx Orphenadrine Citrate 100 Mg Tablet.er 1 Tab PO BID 03/20/18 Rx Amlodipine Besylate 5 Mg Tablet 5 Mg PO DAILY 02/20/17 Rx Lisinopril 40 Mg Tablet 40 Mg PO DAILY 02/18/17 Reported Glipizide 5 Mg Tablet 2.5 Mg PO DAILY 02/18/17 Reported Hydrochlorothiazide Tablet (Hydrochlorothiazide) 12.5 Mg Tablet 25 Mg PO DAILY 02/18/17 Reported Furosemide 20 Mg Tablet 20 Mg PO DAILY 02/18/17 Reported Tamsulosin Hcl 0.4 Mg Cap.er.24h 1 Cap PO DAILY 02/18/17 Reported Aspirin 81 Mg Tab.chew 81 Mg PO DAILY 02/18/17 Reported Metformin Hcl 500 Mg Tablet 500 Mg PO DAILY 02/18/17 Reported Impression . 1. Acute hypoxic respiratory failure secondary to COVID-19 pneumonia/acute lung injury/early acute respiratory distress syndrome. 2. Abnormal chest x-ray with bilateral interstitial infiltrates, suggestive of COVID-19 pneumonia. 3. No significant tobacco history. 4. Acute kidney injury. Could be acute kidney injury on chronic kidney disease. 5. Severe protein-calorie malnutrition. 6. Abnormal D-dimer, likely related to COVID pneumonia. Plan . RECOMMENDATIONS: 1. Vapotherm.wean Fio2 slowly 2. Added steroids for COVID-19 pneumonia. 3. Continue DVT prophylaxis high dose and monitor D-dimers. 4. empiric antibiotics. 5. Hold oral Lasix. 6. Follow renal recommendations. 7. d/w family 11/29 TOTAL CRITICAL CARE TIME: 30 minutes. ABBY MOORE MD Dec 01, 2019 11:41
--- NOTE | 2019-12-01 12:09 | PDOC ---
PROGRESS NOTES Date of Service: DATE: 12/01/19 TIME: 12:08 Chief Complaint Chief Complaint COVID 19 infection acute hypoxemic respiratory distress due to the above. Acute renal failure due to vasomotor nephropathy normocytic anemia Diabetes-Type II High Cholesterol Hypertension Severe protein calorie malnutrition FEN - ADA PPX - lovenox FULL CODE Dispo - inpatient History of Present Illness History of Present Illness Mr Olvera is a 69yo M w/ PMHx Diabetes-Type II, High Cholesterol, Hypertension who was in his usual state of health until 2 days prior ot his admission when he was evaluated at [facility] and found to be positive for COVID 19 virus, patient was discharged and given instructions to follow up in the nearest medical center would his symptoms worsen, Today he felt worse and more dyspneic reason why he came to the ER, he initially requiring 1 liter of oxygen 11/28: Febrile 101 3 F overnight. Procalcitonin elevated, INR 1.4, WBC 9.1, Hb 11.9, platelets 189, NA 137, K3.4, BUN 39, CR 2.8, glucose 240. He is short of breath with cough. He is insistent he does not wish for convalescent FFP if his O2 needs continues to increase. Now on 4L NCO2. 11/29: Febrile to 101.5 F overnight. Creatinine increased to 4.1, he still very short of breath worsening cough, increased from 6 L nasal cannula overnight to 15 L nonrebreather facemask. I discussed with pulmonology to transferred out of the ICU. I have asked the patient to reconsider convalesce and FFP and will discuss with his family. 11/30: No acute events reported overnight, case discussed with nursing staff patient in no acute distress no complaints during my visit seems to be tolerating Vapotherm well hopefully he will be able to continue with improving, encourage proning position if tolerated Vitals Vitals Vital Signs Date Time Temp Pulse Resp B/P (MAP) Pulse Ox O2 Delivery O2 Flow Rate FiO2 12/01/19 10:00 69 35 113/70 (84) 93 vapo therm 40l /100% 40.0 12/01/19 08:00 97.5 97.5 Physical Exam General: Alert Heart: Regular rate, Normal S1, Normal S2 Lungs: Wheezing, Crackles Abdomen: Normal bowel sounds, Soft Extremities: No clubbing, No cyanosis Skin: No rashes, No breakdown Labs LABS Laboratory Tests Test 11/30/19 14:11 11/30/19 17:40 11/30/19 22:36 12/01/19 02:30 Glucose (Fingerstick) 76 mg/dL (70-99) 212 mg/dL (70-99) Urine Collection Type U cath Unknown Urine Color Yellow Yellow Urine Clarity Cloudy Cloudy Urine pH 5.0 (<5.0-8.0) 5.0 (<5.0-8.0) Urine Specific [place] 1.015 (1.000-1.030) 1.015 (1.000-1.030) Urine Protein 30 mg/dL (NEG-TRACE) 30 mg/dL (NEG-TRACE) Urine Glucose (UA) Negative mg/dL (NEG) Negative mg/dL (NEG) Urine Ketones (Stick) Negative mg/dL (NEG) Negative mg/dL (NEG) Urine Blood Negative (NEG) Large (NEG) Urine Nitrite Negative (NEG) Negative (NEG) Urine Bilirubin Negative (NEG) Negative (NEG) Urine Urobilinogen Dipstick 1.0 mg/dL (0.2 mg/dL) 0.2 mg/dL (0.2 mg/dL) Urine Leukocyte Esterase Negative (NEG) Trace (NEG) Urine RBC 0 /HPF (0-2) 20-40 /HPF (0-2) Urine WBC 0 /HPF (0-4) 1-4 /HPF (0-4) Urine Amorphous Sediment Present /HPF Present /HPF Urine Bacteria 0 /HPF (0-FEW) Few /HPF (0-FEW) Urine Squamous Epithelial Cells Few /LPF Urine Granular Casts Few /HPF Urine Mucus Slight /LPF Test 12/01/19 08:30 12/01/19 09:00 12/01/19 11:59 Glucose (Fingerstick) 335 mg/dL (70-99) 382 mg/dL (70-99) White Blood Count 6.8 x10^3/uL (4.0-11.0) Red Blood Count 3.72 x10^6/uL (4.30-5.70) Hemoglobin 11.2 g/dL (13.0-17.5) Hematocrit 34.7 % (39.0-53.0) Mean Corpuscular Volume 93 fL (79-100) Mean Corpuscular Hemoglobin 30 pg (25-35) Mean Corpuscular Hemoglobin Concent 32 g/dL (31-37) Red Cell Distribution Width 13.6 % (11.5-14.5) Platelet Count 180 x10^3/uL (140-400) Neutrophils (%) (Auto) 80 % (31-73) Lymphocytes (%) (Auto) 17 % (24-48) Monocytes (%) (Auto) 3 % (0-9) Eosinophils (%) (Auto) 0 % (0-3) Basophils (%) (Auto) 0 % (0-3) Neutrophils # (Auto) 5.4 x10^3/uL (1.8-7.7) Lymphocytes # (Auto) 1.1 x10^3/uL (1.0-4.8) Monocytes # (Auto) 0.2 x10^3/uL (0.0-1.1) Eosinophils # (Auto) 0.0 x10^3/uL (0.0-0.7) Basophils # (Auto) 0.0 x10^3/uL (0.0-0.2) Sodium Level 136 mmol/L (136-145) Potassium Level 4.0 mmol/L (3.5-5.1) Chloride Level 98 mmol/L (98-107) Carbon Dioxide Level 29 mmol/L (21-32) Anion Gap 9 (6-14) Blood Urea Nitrogen 65 mg/dL (8-26) Creatinine 4.3 mg/dL (0.7-1.3) Estimated GFR (Cockcroft-Gault) 16.7 BUN/Creatinine Ratio 15 (6-20) Glucose Level 342 mg/dL (70-99) Calcium Level 7.8 mg/dL (8.5-10.1) Total Bilirubin 0.4 mg/dL (0.2-1.0) Aspartate Amino Transf (AST/SGOT) 37 U/L (15-37) Alanine Aminotransferase (ALT/SGPT) 40 U/L (16-63) Alkaline Phosphatase 53 U/L (46-116) Total Protein 6.7 g/dL (6.4-8.2) Albumin 1.7 g/dL (3.4-5.0) Albumin/Globulin Ratio 0.3 (1.0-1.7) Assessment and Plan Assessmemt and Plan Problems Medical Problems: (1) ARF (acute renal failure) Status: Acute (2) Fever Status: Acute (3) Hypoxemia Status: Acute (4) Sepsis Status: Acute Comment Review of Relevant I have reviewed the following items bren (where applicable) has been applied. Labs Laboratory Tests Test 11/29/19 16:19 11/29/19 21:26 11/30/19 03:50 11/30/19 07:26 Glucose (Fingerstick) 138 mg/dL (70-99) 119 mg/dL (70-99) 91 mg/dL (70-99) White Blood Count 8.0 x10^3/uL (4.0-11.0) Red Blood Count 3.76 x10^6/uL (4.30-5.70) Hemoglobin 11.5 g/dL (13.0-17.5) Hematocrit 34.9 % (39.0-53.0) Mean Corpuscular Volume 93 fL (79-100) Mean Corpuscular Hemoglobin 31 pg (25-35) Mean Corpuscular Hemoglobin Concent 33 g/dL (31-37) Red Cell Distribution Width 13.6 % (11.5-14.5) Platelet Count 183 x10^3/uL (140-400) Neutrophils (%) (Auto) 75 % (31-73) Lymphocytes (%) (Auto) 17 % (24-48) Monocytes (%) (Auto) 7 % (0-9) Eosinophils (%) (Auto) 1 % (0-3) Basophils (%) (Auto) 0 % (0-3) Neutrophils # (Auto) 5.9 x10^3/uL (1.8-7.7) Lymphocytes # (Auto) 1.4 x10^3/uL (1.0-4.8) Monocytes # (Auto) 0.6 x10^3/uL (0.0-1.1) Eosinophils # (Auto) 0.1 x10^3/uL (0.0-0.7) Basophils # (Auto) 0.0 x10^3/uL (0.0-0.2) Sodium Level 135 mmol/L (136-145) Potassium Level 3.7 mmol/L (3.5-5.1) Chloride Level 100 mmol/L (98-107) Carbon Dioxide Level 28 mmol/L (21-32) Anion Gap 7 (6-14) Blood Urea Nitrogen 56 mg/dL (8-26) Creatinine 4.1 mg/dL (0.7-1.3) Estimated GFR (Cockcroft-Gault) 17.6 BUN/Creatinine Ratio 14 (6-20) Glucose Level 122 mg/dL (70-99) Calcium Level 8.4 mg/dL (8.5-10.1) Total Bilirubin 0.4 mg/dL (0.2-1.0) Aspartate Amino Transf (AST/SGOT) 44 U/L (15-37) Alanine Aminotransferase (ALT/SGPT) 49 U/L (16-63) Alkaline Phosphatase 52 U/L (46-116) Creatine Kinase 194 U/L (39-308) Total Protein 6.7 g/dL (6.4-8.2) Albumin 1.8 g/dL (3.4-5.0) Albumin/Globulin Ratio 0.4 (1.0-1.7) Test 11/30/19 10:15 11/30/19 14:11 11/30/19 17:40 11/30/19 22:36 D-Dimer (Natty) 1.24 ug/mlFEU (0.00-0.50) Glucose (Fingerstick) 76 mg/dL (70-99) 212 mg/dL (70-99) Urine Collection Type U cath Urine Color Yellow Urine Clarity Cloudy Urine pH 5.0 (<5.0-8.0) Urine Specific [place] 1.015 (1.000-1.030) Urine Protein 30 mg/dL (NEG-TRACE) Urine Glucose (UA) Negative mg/dL (NEG) Urine Ketones (Stick) Negative mg/dL (NEG) Urine Blood Negative (NEG) Urine Nitrite Negative (NEG) Urine Bilirubin Negative (NEG) Urine Urobilinogen Dipstick 1.0 mg/dL (0.2 mg/dL) Urine Leukocyte Esterase Negative (NEG) Urine RBC 0 /HPF (0-2) Urine WBC 0 /HPF (0-4) Urine Amorphous Sediment Present /HPF Urine Bacteria 0 /HPF (0-FEW) Test 12/01/19 02:30 12/01/19 08:30 12/01/19 09:00 12/01/19 11:59 Urine Collection Type Unknown Urine Color Yellow Urine Clarity Cloudy Urine pH 5.0 (<5.0-8.0) Urine Specific [place] 1.015 (1.000-1.030) Urine Protein 30 mg/dL (NEG-TRACE) Urine Glucose (UA) Negative mg/dL (NEG) Urine Ketones (Stick) Negative mg/dL (NEG) Urine Blood Large (NEG) Urine Nitrite Negative (NEG) Urine Bilirubin Negative (NEG) Urine Urobilinogen Dipstick 0.2 mg/dL (0.2 mg/dL) Urine Leukocyte Esterase Trace (NEG) Urine RBC 20-40 /HPF (0-2) Urine WBC 1-4 /HPF (0-4) Urine Squamous Epithelial Cells Few /LPF Urine Amorphous Sediment Present /HPF Urine Bacteria Few /HPF (0-FEW) Urine Granular Casts Few /HPF Urine Mucus Slight /LPF Glucose (Fingerstick) 335 mg/dL (70-99) 382 mg/dL (70-99) White Blood Count 6.8 x10^3/uL (4.0-11.0) Red Blood Count 3.72 x10^6/uL (4.30-5.70) Hemoglobin 11.2 g/dL (13.0-17.5) Hematocrit 34.7 % (39.0-53.0) Mean Corpuscular Volume 93 fL (79-100) Mean Corpuscular Hemoglobin 30 pg (25-35) Mean Corpuscular Hemoglobin Concent 32 g/dL (31-37) Red Cell Distribution Width 13.6 % (11.5-14.5) Platelet Count 180 x10^3/uL (140-400) Neutrophils (%) (Auto) 80 % (31-73) Lymphocytes (%) (Auto) 17 % (24-48) Monocytes (%) (Auto) 3 % (0-9) Eosinophils (%) (Auto) 0 % (0-3) Basophils (%) (Auto) 0 % (0-3) Neutrophils # (Auto) 5.4 x10^3/uL (1.8-7.7) Lymphocytes # (Auto) 1.1 x10^3/uL (1.0-4.8) Monocytes # (Auto) 0.2 x10^3/uL (0.0-1.1) Eosinophils # (Auto) 0.0 x10^3/uL (0.0-0.7) Basophils # (Auto) 0.0 x10^3/uL (0.0-0.2) Sodium Level 136 mmol/L (136-145) Potassium Level 4.0 mmol/L (3.5-5.1) Chloride Level 98 mmol/L (98-107) Carbon Dioxide Level 29 mmol/L (21-32) Anion Gap 9 (6-14) Blood Urea Nitrogen 65 mg/dL (8-26) Creatinine 4.3 mg/dL (0.7-1.3) Estimated GFR (Cockcroft-Gault) 16.7 BUN/Creatinine Ratio 15 (6-20) Glucose Level 342 mg/dL (70-99) Calcium Level 7.8 mg/dL (8.5-10.1) Total Bilirubin 0.4 mg/dL (0.2-1.0) Aspartate Amino Transf (AST/SGOT) 37 U/L (15-37) Alanine Aminotransferase (ALT/SGPT) 40 U/L (16-63) Alkaline Phosphatase 53 U/L (46-116) Total Protein 6.7 g/dL (6.4-8.2) Albumin 1.7 g/dL (3.4-5.0) Albumin/Globulin Ratio 0.3 (1.0-1.7) Laboratory Tests Test 11/30/19 14:11 11/30/19 17:40 11/30/19 22:36 12/01/19 02:30 Glucose (Fingerstick) 76 mg/dL (70-99) 212 mg/dL (70-99) Urine Collection Type U cath Unknown Urine Color Yellow Yellow Urine Clarity Cloudy Cloudy Urine pH 5.0 (<5.0-8.0) 5.0 (<5.0-8.0) Urine Specific [place] 1.015 (1.000-1.030) 1.015 (1.000-1.030) Urine Protein 30 mg/dL (NEG-TRACE) 30 mg/dL (NEG-TRACE) Urine Glucose (UA) Negative mg/dL (NEG) Negative mg/dL (NEG) Urine Ketones (Stick) Negative mg/dL (NEG) Negative mg/dL (NEG) Urine Blood Negative (NEG) Large (NEG) Urine Nitrite Negative (NEG) Negative (NEG) Urine Bilirubin Negative (NEG) Negative (NEG) Urine Urobilinogen Dipstick 1.0 mg/dL (0.2 mg/dL) 0.2 mg/dL (0.2 mg/dL) Urine Leukocyte Esterase Negative (NEG) Trace (NEG) Urine RBC 0 /HPF (0-2) 20-40 /HPF (0-2) Urine WBC 0 /HPF (0-4) 1-4 /HPF (0-4) Urine Amorphous Sediment Present /HPF Present /HPF Urine Bacteria 0 /HPF (0-FEW) Few /HPF (0-FEW) Urine Squamous Epithelial Cells Few /LPF Urine Granular Casts Few /HPF Urine Mucus Slight /LPF Test 12/01/19 08:30 12/01/19 09:00 12/01/19 11:59 Glucose (Fingerstick) 335 mg/dL (70-99) 382 mg/dL (70-99) White Blood Count 6.8 x10^3/uL (4.0-11.0) Red Blood Count 3.72 x10^6/uL (4.30-5.70) Hemoglobin 11.2 g/dL (13.0-17.5) Hematocrit 34.7 % (39.0-53.0) Mean Corpuscular Volume 93 fL (79-100) Mean Corpuscular Hemoglobin 30 pg (25-35) Mean Corpuscular Hemoglobin Concent 32 g/dL (31-37) Red Cell Distribution Width 13.6 % (11.5-14.5) Platelet Count 180 x10^3/uL (140-400) Neutrophils (%) (Auto) 80 % (31-73) Lymphocytes (%) (Auto) 17 % (24-48) Monocytes (%) (Auto) 3 % (0-9) Eosinophils (%) (Auto) 0 % (0-3) Basophils (%) (Auto) 0 % (0-3) Neutrophils # (Auto) 5.4 x10^3/uL (1.8-7.7) Lymphocytes # (Auto) 1.1 x10^3/uL (1.0-4.8) Monocytes # (Auto) 0.2 x10^3/uL (0.0-1.1) Eosinophils # (Auto) 0.0 x10^3/uL (0.0-0.7) Basophils # (Auto) 0.0 x10^3/uL (0.0-0.2) Sodium Level 136 mmol/L (136-145) Potassium Level 4.0 mmol/L (3.5-5.1) Chloride Level 98 mmol/L (98-107) Carbon Dioxide Level 29 mmol/L (21-32) Anion Gap 9 (6-14) Blood Urea Nitrogen 65 mg/dL (8-26) Creatinine 4.3 mg/dL (0.7-1.3) Estimated GFR (Cockcroft-Gault) 16.7 BUN/Creatinine Ratio 15 (6-20) Glucose Level 342 mg/dL (70-99) Calcium Level 7.8 mg/dL (8.5-10.1) Total Bilirubin 0.4 mg/dL (0.2-1.0) Aspartate Amino Transf (AST/SGOT) 37 U/L (15-37) Alanine Aminotransferase (ALT/SGPT) 40 U/L (16-63) Alkaline Phosphatase 53 U/L (46-116) Total Protein 6.7 g/dL (6.4-8.2) Albumin 1.7 g/dL (3.4-5.0) Albumin/Globulin Ratio 0.3 (1.0-1.7) Medications Current Medications Ondansetron HCl (Zofran) 4 mg 1X ONCE IV Last administered on 11/28/19at 16:25; Start 11/28/19 at 15:30; Stop 11/28/19 at 15:36; Status DC Acetaminophen (Tylenol) 1,000 mg 1X ONCE PO Last administered on 11/28/19at 16:25; Start 11/28/19 at 15:45; Stop 11/28/19 at 16:03; Status DC Acetaminophen (Tylenol) 650 mg PRN Q6HRS PRN PO Headaches, Temp > 101.5' Last administered on 11/30/19at 08:45; Start 11/28/19 at 17:45 Lorazepam (Ativan Inj) 0.5 mg PRN Q6HRS PRN IVP ANXIETY / AGITATION; Start 11/28/19 at 17:45 Ondansetron HCl (Zofran) 4 mg PRN Q6HRS PRN IVP NAUSEA/VOMITING; Start 11/28/19 at 17:45 Famotidine (Pepcid Vial) 20 mg BID IVP Last administered on 12/01/19at 08:20; Start 11/28/19 at 21:00 Info (Icu Electrolyte Protocol) 1 ea DAILY MC ; Start 11/29/19 at 09:00; Stop 11/28/19 at 18:16; Status DC Enoxaparin Sodium (Lovenox 40mg Syringe) 150 mg Q12HR SQ ; Start 11/28/19 at 21:00; Stop 11/28/19 at 18:16; Status DC Sodium Chloride (Normal Saline Flush) 3 ml QSHIFT PRN IV AFTER MEDS AND BLOOD DRAWS; Start 11/28/19 at 17:45 Acetaminophen/ Hydrocodone Bitart (Lortab 5/325) 1 tab PRN Q4HRS PRN PO MILD PAIN, 2ND CHOICE; Start 11/28/19 at 17:45 Morphine Sulfate (Morphine Sulfate) 1 mg PRN Q1HR PRN IV PAIN; Start 11/28/19 at 17:45 Senna/Docusate Sodium (Senna Plus) 1 tab BID PO Last administered on 12/01/19at 08:17; Start 11/28/19 at 21:00 Lactulose (Lactulose) 20 gm PRN Q12HR PRN PO CONSTIPATION; Start 11/28/19 at 17:45 Amlodipine Besylate (Norvasc) 5 mg DAILY PO Last administered on 12/01/19at 08:17; Start 11/29/19 at 09:00 Aspirin (Aspirin Chewable) 81 mg DAILY PO Last administered on 12/01/19at 08:17; Start 11/29/19 at 09:00 Furosemide (Lasix) 20 mg DAILY PO Last administered on 12/01/19at 08:19; Start 11/29/19 at 09:00 Glipizide (Glucotrol) 2.5 mg DAILY PO Last administered on 11/30/19at 08:44; Start 11/29/19 at 09:00; Stop 12/01/19 at 08:12; Status DC Acetaminophen/ Hydrocodone Bitart (Lortab 5/325) 1 tab PRN Q6HRS PRN PO PAIN; Start 11/28/19 at 17:45; Status UNV Lisinopril (Prinivil) 40 mg DAILY PO Last administered on 12/01/19at 08:19; Start 11/29/19 at 09:00 Tamsulosin HCl (Flomax) 0.4 mg DAILY PO Last administered on 12/01/19 08:17; Start 11/29/19 at 09:00 Hydrochlorothiazide (Hydrodiuril) 25 mg DAILY PO Last administered on 12/01/19at 08:17; Start 11/29/19 at 09:00 Cyclobenzaprine HCl (Flexeril) 10 mg TID PO Last administered on 11/30/19at 22:16; Start 11/28/19 at 21:00 Magnesium Sulfate 50 ml @ 25 mls/hr 1X ONCE IV Last administered on 11/28/19at 19:10; Start 11/28/19 at 19:00; Stop 11/28/19 at 20:59; Status DC Zinc Sulfate (Orazinc) 220 mg DAILY PO Last administered on 12/01/19at 08:19; Start 11/29/19 at 09:00 Ascorbic Acid (Vitamin C) 500 mg Q6HRS PO Last administered on 12/01/19at 11:56; Start 11/29/19 at 00:00 Vitamin D (Vitamin D3) 1,000 unit BID PO Last administered on 12/01/19at 08:17; Start 11/28/19 at 21:00 Atorvastatin Calcium (Lipitor) 40 mg QHS PO Last administered on 11/30/19at 22:17; Start 11/28/19 at 21:00 Enoxaparin Sodium (Lovenox 80mg Syringe) 80 mg 1X ONCE SQ Last administered on 11/28/19at 19:10; Start 11/28/19 at 19:00; Stop 11/28/19 at 19:01; Status DC Enoxaparin Sodium (Lovenox 40mg Syringe) 40 mg Q12HR SQ Last administered on 11/29/19at 20:52; Start 11/29/19 at 09:00; Stop 11/30/19 at 10:00; Status DC Thiamine HCl 200 mg/Dextrose 52 ml @ 102 mls/hr Q12HR IV Last administered on 12/01/19at 09:35; Start 11/28/19 at 19:30 Potassium Chloride (Klor-Con) 40 meq 1X ONCE PO Last administered on 11/29/19at 17:15; Start 11/29/19 at 16:45; Stop 11/29/19 at 16:46; Status DC Methylprednisolone Sodium Succinate (SOLU-Medrol 125MG VIAL) 60 mg Q8HRS IV Last administered on 12/01/19at 05:47; Start 11/30/19 at 09:00 Piperacillin Sod/ Tazobactam Sod (Zosyn Per Pharmacy) 1 each PRN DAILY PRN MC SEE COMMENTS; Start 11/30/19 at 08:45 Piperacillin Sod/ Tazobactam Sod 3.375 gm/Sodium Chloride 50 ml @ 100 mls/hr Q6HRS IV Last administered on 12/01/19at 11:56; Start 11/30/19 at 12:00 Heparin Sodium (Porcine) (Heparin Sodium) 5,000 unit Q8HRS SQ Last administered on 12/01/19at 05:48; Start 11/30/19 at 14:00 Sterile Water (WATER for RESP) 1,000 ml CONT PRN INH VIA VAPOTHERM DEVICE; Start 11/30/19 at 17:30 Active Scripts Active Bern 5-325 Tablet (Acetaminophen/Hydrocodone Bitart) 1 Each Tablet 1 Tab PO PRN Q6HRS PRN Orphenadrine Citrate 100 Mg Tablet.er 1 Tab PO BID Amlodipine Besylate 5 Mg Tablet 5 Mg PO DAILY Reported Lisinopril 40 Mg Tablet 40 Mg PO DAILY Glipizide 5 Mg Tablet 2.5 Mg PO DAILY Hydrochlorothiazide Tablet (Hydrochlorothiazide) 12.5 Mg Tablet 25 Mg PO DAILY Furosemide 20 Mg Tablet 20 Mg PO DAILY Tamsulosin Hcl 0.4 Mg Cap.er.24h 1 Cap PO DAILY Aspirin 81 Mg Tab.chew 81 Mg PO DAILY Metformin Hcl 500 Mg Tablet 500 Mg PO DAILY Vitals/I & O Vital Sign - Last 24 Hours 11/30/19 11/30/19 11/30/19 11/30/19 13:00 14:00 15:20 16:00 Temp 98.0 98.0 Pulse 82 84 72 Resp 14 16 14 B/P (MAP) 123/82 (96) 123/74 (90) 128/72 (90) Pulse Ox 98 99 100 98 O2 Delivery vapo therm 40l /100% vapo therm 40l /100% Vapotherm vapo therm 40l /100% O2 Flow Rate 40.0 11/30/19 11/30/19 11/30/19 11/30/19 16:00 17:00 18:00 18:00 Temp 99.0 98.0 99.0 98.0 Pulse 74 68 73 77 Resp 23 16 14 14 B/P (MAP) 114/68 149/82 (104) 150/87 (108) 150/87 Pulse Ox 99 100 O2 Delivery vapo therm 40l /100% vapo therm 40l /100% 11/30/19 11/30/19 11/30/19 11/30/19 19:00 19:05 19:28 20:00 Temp 98.2 98.2 Pulse 58 59 Resp 20 18 B/P (MAP) 155/69 (97) 140/68 (92) Pulse Ox 98 97 98 O2 Delivery vapo therm 40l /100% Vapotherm vapo therm 40l /100% O2 Flow Rate 40.0 40.0 40.0 11/30/19 11/30/19 11/30/19 11/30/19 20:00 21:00 22:00 23:00 Pulse 78 58 62 Resp 20 16 24 B/P (MAP) 124/68 (86) 140/71 (94) 132/78 (96) Pulse Ox 99 99 94 O2 Delivery Non-Rebreather vapo therm 40l /100% vapo therm 40l /100% vapo therm 40l /100% O2 Flow Rate 40.0 40.0 40.0 40.0 12/01/19 12/01/19 12/01/19 12/01/19 00:00 00:00 00:05 00:32 Temp 98.0 98.0 Pulse 58 Resp 23 B/P (MAP) 143/73 (96) Pulse Ox 97 93 O2 Delivery vapo therm 40l /100% Non-Rebreather Vapotherm O2 Flow Rate 40.0 40.0 40.0 12/01/19 12/01/19 12/01/19 12/01/19 01:00 02:00 03:00 03:59 Pulse 62 51 64 Resp 27 25 18 B/P (MAP) 135/81 (99) 149/73 (98) 132/67 (88) Pulse Ox 97 100 95 97 O2 Delivery vapo therm 40l /100% vapo therm 40l /100% vapo therm 40l /100% Vapotherm O2 Flow Rate 40.0 40.0 40.0 40.0 8/24/20 8/24/20 8/24/20 8/24/20 04:00 04:00 05:00 05:57 Temp 97.6 97.6 Pulse 60 64 Resp 16 21 B/P (MAP) 119/65 (83) 101/53 (69) Pulse Ox 94 94 94 O2 Delivery Non-Rebreather vapo therm 40l /100% vapo therm 40l /100% Vapotherm O2 Flow Rate 40.0 40.0 40.0 40.0 12/01/19 12/01/19 12/01/19 12/01/19 06:00 07:00 08:00 08:00 Temp 97.5 97.5 Pulse 64 58 64 Resp 33 25 30 B/P (MAP) 99/55 (70) 114/63 (80) 120/73 (89) Pulse Ox 95 94 94 O2 Delivery vapo therm 40l /100% vapo therm 40l /100% vapo therm 40l /100% Nasal Cannula O2 Flow Rate 40.0 40.0 40.0 40.0 12/01/19 12/01/19 12/01/19 12/01/19 08:15 08:17 08:19 09:00 Pulse 58 58 66 Resp 29 B/P (MAP) 114/63 114/63 115/68 (84) Pulse Ox 92 92 O2 Delivery VAPOTHERM vapo therm 40l /100% O2 Flow Rate 40.0 40.0 12/01/19 10:00 Pulse 69 Resp 35 B/P (MAP) 113/70 (84) Pulse Ox 93 O2 Delivery vapo therm 40l /100% O2 Flow Rate 40.0 Intake and Output 11/30/19 11/30/19 12/01/19 15:00 23:00 07:00 Intake Total 730 ml 425 ml 600 ml Output Total 500 ml 505 ml 785 ml Balance 230 ml -80 ml -185 ml Justicifation of Admission Dx: Justifications for Admission: Justification of Admission Dx: Yes Sepsis: Hypoxemia RAN GONZALES MD Dec 01, 2019 12:09
[2019-12-01] MEDS ORDERED: DEXTROSE 50% 25 GM / 50ML DISP.SYRIN. IV PRN (12:15)
--- NOTE | 2019-12-01 12:26 | PDOC ---
Renal-Progress Notes Subjective Notes Notes NO NEW COMPLAINTS History of Present Illness Hx of present illness SAME Vitals Vitals Vital Signs Date Time Temp Pulse Resp B/P (MAP) Pulse Ox O2 Delivery O2 Flow Rate FiO2 12/01/19 12:00 97.5 61 26 122/69 (86) 89 vapo therm 40l /100% 40.0 97.5 Weight Weight [ ] I.O. Intake and Output Intake and Output 12/01/19 07:00 Intake Total 1755 ml Output Total 1790 ml Balance -35 ml Intake Oral 1330 ml Blood Product IV Normal Saline Flush 425 ml Output Urine Total 1790 ml Labs Labs Laboratory Tests Test 11/30/19 14:11 11/30/19 17:40 11/30/19 22:36 12/01/19 02:30 Glucose (Fingerstick) 76 mg/dL (70-99) 212 mg/dL (70-99) Urine Collection Type U cath Unknown Urine Color Yellow Yellow Urine Clarity Cloudy Cloudy Urine pH 5.0 (<5.0-8.0) 5.0 (<5.0-8.0) Urine Specific [place] 1.015 (1.000-1.030) 1.015 (1.000-1.030) Urine Protein 30 mg/dL (NEG-TRACE) 30 mg/dL (NEG-TRACE) Urine Glucose (UA) Negative mg/dL (NEG) Negative mg/dL (NEG) Urine Ketones (Stick) Negative mg/dL (NEG) Negative mg/dL (NEG) Urine Blood Negative (NEG) Large (NEG) Urine Nitrite Negative (NEG) Negative (NEG) Urine Bilirubin Negative (NEG) Negative (NEG) Urine Urobilinogen Dipstick 1.0 mg/dL (0.2 mg/dL) 0.2 mg/dL (0.2 mg/dL) Urine Leukocyte Esterase Negative (NEG) Trace (NEG) Urine RBC 0 /HPF (0-2) 20-40 /HPF (0-2) Urine WBC 0 /HPF (0-4) 1-4 /HPF (0-4) Urine Amorphous Sediment Present /HPF Present /HPF Urine Bacteria 0 /HPF (0-FEW) Few /HPF (0-FEW) Urine Squamous Epithelial Cells Few /LPF Urine Granular Casts Few /HPF Urine Mucus Slight /LPF Test 12/01/19 08:30 12/01/19 09:00 12/01/19 11:59 Glucose (Fingerstick) 335 mg/dL (70-99) 382 mg/dL (70-99) White Blood Count 6.8 x10^3/uL (4.0-11.0) Red Blood Count 3.72 x10^6/uL (4.30-5.70) Hemoglobin 11.2 g/dL (13.0-17.5) Hematocrit 34.7 % (39.0-53.0) Mean Corpuscular Volume 93 fL (79-100) Mean Corpuscular Hemoglobin 30 pg (25-35) Mean Corpuscular Hemoglobin Concent 32 g/dL (31-37) Red Cell Distribution Width 13.6 % (11.5-14.5) Platelet Count 180 x10^3/uL (140-400) Neutrophils (%) (Auto) 80 % (31-73) Lymphocytes (%) (Auto) 17 % (24-48) Monocytes (%) (Auto) 3 % (0-9) Eosinophils (%) (Auto) 0 % (0-3) Basophils (%) (Auto) 0 % (0-3) Neutrophils # (Auto) 5.4 x10^3/uL (1.8-7.7) Lymphocytes # (Auto) 1.1 x10^3/uL (1.0-4.8) Monocytes # (Auto) 0.2 x10^3/uL (0.0-1.1) Eosinophils # (Auto) 0.0 x10^3/uL (0.0-0.7) Basophils # (Auto) 0.0 x10^3/uL (0.0-0.2) Sodium Level 136 mmol/L (136-145) Potassium Level 4.0 mmol/L (3.5-5.1) Chloride Level 98 mmol/L (98-107) Carbon Dioxide Level 29 mmol/L (21-32) Anion Gap 9 (6-14) Blood Urea Nitrogen 65 mg/dL (8-26) Creatinine 4.3 mg/dL (0.7-1.3) Estimated GFR (Cockcroft-Gault) 16.7 BUN/Creatinine Ratio 15 (6-20) Glucose Level 342 mg/dL (70-99) Calcium Level 7.8 mg/dL (8.5-10.1) Total Bilirubin 0.4 mg/dL (0.2-1.0) Aspartate Amino Transf (AST/SGOT) 37 U/L (15-37) Alanine Aminotransferase (ALT/SGPT) 40 U/L (16-63) Alkaline Phosphatase 53 U/L (46-116) Total Protein 6.7 g/dL (6.4-8.2) Albumin 1.7 g/dL (3.4-5.0) Albumin/Globulin Ratio 0.3 (1.0-1.7) Review of Systems Constitutional: yes: weakness, alert, oriented Ears/Nose/Throat: Yes: no symptom reported Eyes: Yes: no symptom reported Pulmonary: Yes dyspnea Cardiovascular: Yes edema Gastrointestional: Yes: no symptom reported Genitourinary: Yes: no symptom reported Musculoskeletal: Yes: muscle stiffness Skin: Yes no symptom reported Psychiatric/Neurological: Yes: no symptom reported Endocrine: Yes: no symptom reported Physical Exam General Appearance: no apparent distress, obese Skin: warm Respiratory: decreased breath sounds Heart: S1S2, RRR Abdomen: soft, bowel sounds present Genitourinary: bladder flat, hill catheter Extremities: pulses present, edema Neurology: alert, oriented, follow commands Musculoskeletal: Osteoarthritis Assessment Assessment IMP [id number] UP TO 4.3 CKD STAGE 3 WITH CR OF 1.3 COVID 19 PNEUMONIA ACUTE HYPOXIC RESP FAILURE MORBID OBESITY PROTEIN CALORIE MALNUTRITION HEMATURIA PLAN TRIAL OF IVF'S VAPOTHERM MAINTAIN ADEQUATE MAP STOP PRESTON-I STOP THIAZIDE AND LASIX MAY NEED DIALYSIS PT STATES IF HE WOULD NOT WANT TO DO DIALYSIS D/W DR MOORE WILL FOLLOW [facility] CRITICAL [facility] TIME: 30 minutes. ANETA CANO MD Dec 01, 2019 12:26
[2019-12-01] MEDS ORDERED: INSULIN GLARGINE SYRINGE. SQ SCH (12:30)
[2019-12-01] MEDS: INSULIN LISPRO 300 UNITS/3 ML VIAL. SQ SCH ×2 (12:56→17:33)
[2019-12-01] MEDS ORDERED: IV NORMAL SALINE 1000ML BAG 1,000 ML IV ONE (13:00)
--- NOTE | 2019-12-01 13:23 | RAD ---
Examination: Ultrasound kidneys HISTORY: History of acute renal insufficiency COMPARISON: None available FINDINGS: The right kidney measures 12.6 x 6.8 x 6.7 cm. The left kidney measures 12.7 x 5.4 x 0.7 cm. No evidence of hydronephrosis. Examination limited by bowel gas. The urinary bladder is mildly distended. IMPRESSION: 1. Unremarkable visualized exam. Electronically signed by: Jose Betts MD (12/01/2019 1:20 PM) [id number]
[2019-12-01] MEDS ORDERED: INSULIN LISPRO 300 UNITS/3 ML VIAL. SQ SCH (17:45)
[2019-12-01] MEDS: STERILE WATER for RESP 1,000 ML BAG. INH PRN (19:28)
[2019-12-01] MEDS: INSULIN GLARGINE SYRINGE. SQ SCH (21:15)
[2019-12-01] MEDS: ATORVASTATIN CALCIUM 40 MG TABLET. PO SCH (21:17)
[2019-12-01] MEDS ORDERED: INSULIN LISPRO 300 UNITS/3 ML VIAL. SQ ONE (21:30)
[2019-12-02] VITALS (24 sets, daily range): BP systolic 112–166; BP diastolic 57–85
[2019-12-02] MEDS: PIPERACILLIN/TAZOBACTAM 3.375 GM in IV NORMAL SALINE 50ML 50 ML IV SCH ×5 (00:18→23:31)
[2019-12-02] MEDS: ASCORBIC ACID 500 MG TABLET PO SCH ×5 (00:20→23:30)
[2019-12-02 05:45] LABS: BASO % 0 % (0-3); EOS % 0 % (0-3); HEMOGLOBIN 11.1 g/dL (13.0-17.5); LYMPH # 1.1 x10^3/uL (1.0-4.8); LYMPH % 7 % (24-48); MEAN CORPUSCULAR HEMOGLOBIN 30 pg (25-35); MEAN CORPUSCULAR HGB CONC 33 g/dL (31-37); MEAN CORPUSCULAR VOLUME 91 fL (79-100); MONO # 0.6 x10^3/uL (0.0-1.1); MONO % 4 % (0-9); NEUT # 12.9 x10^3/uL (1.8-7.7); NEUT % 89 % (31-73); PLATELET COUNT 195 x10^3/uL (140-400); RED BLOOD COUNT 3.72 x10^6/uL (4.30-5.70); RED CELL DISTRIBUTION WIDTH 13.1 % (11.5-14.5); WHITE BLOOD COUNT 14.6 x10^3/uL (4.0-11.0)
[2019-12-02 05:57] LABS: ALBUMIN 1.6 g/dL (3.4-5.0); ALBUMIN/GLOBULIN RATIO 0.3 (1.0-1.7); CALCIUM 7.8 mg/dL (8.5-10.1); CREATININE 3.6 mg/dL (0.7-1.3); GFR 20.4; POTASSIUM 3.7 mmol/L (3.5-5.1); TOTAL BILIRUBIN 0.3 mg/dL (0.2-1.0); TOTAL PROTEIN 6.6 g/dL (6.4-8.2)
[2019-12-02] MEDS: methylPREDNISolone SOD SUCC PF 125 MG/2 ML VIAL. IV SCH ×3 (05:59→21:09)
[2019-12-02] MEDS: HEPARIN for SUB-Q USE 5,000 UNIT/ML VIAL. SQ SCH ×3 (06:00→21:10)
[2019-12-02] MEDS ORDERED: CYCLOBENZAPRINE 10 MG TABLET. PO PRN (06:45)
[2019-12-02] MEDS: INSULIN LISPRO 300 UNITS/3 ML VIAL. SQ SCH ×7 (07:30→21:11)
[2019-12-02] MEDS: STERILE WATER for RESP 1,000 ML BAG. INH PRN ×2 (07:33→20:03)
[2019-12-02 07:49] LABS: BASE EXCESS ABG 2 mmol/L (-3-3); HCO3 ABG 26 mmol/L (21-28); PCO2 ABG 40 mmHg (35-46); SAT O2 ABG 85 % (92-99)
[2019-12-02 08:00] LABS: FIO2 ABG 100@40L VAPO; PO2 ABG 49 mmHg (65-108)
[2019-12-02] MEDS: ZINC SULFATE 220 MG CAPSULE. PO SCH (08:33)
[2019-12-02] MEDS: ASPIRIN CHEWABLE 81 MG TABLET. PO SCH (08:33)
[2019-12-02] MEDS: CHOLECALCIFEROL (VITAMIN D3) 1,000 UNIT TABLET PO SCH ×2 (08:33→21:10)
[2019-12-02] MEDS: FAMOTIDINE 20 MG/2 ML VIAL IVP SCH ×2 (08:33→21:10)
[2019-12-02] MEDS: amLODIPine BESYLATE 5 MG TABLET PO SCH (08:33)
[2019-12-02] MEDS: SENNOSIDES/DOCUSATE 8.6/50MG TABLET. PO SCH ×2 (08:33→21:10)
[2019-12-02] MEDS: TAMSULOSIN 0.4 MG CAP.ER.24H. PO SCH (08:33)
[2019-12-02] MEDS: INSULIN GLARGINE SYRINGE. SQ SCH ×2 (08:34→21:11)
[2019-12-02] MEDS: THIAMINE INJ 200 MG in IV DEXTROSE 5% 50 ML IV SCH ×2 (08:50→21:09)
--- NOTE | 2019-12-02 09:55 | PDOC ---
PROGRESS NOTES Date of Service: DATE: 12/02/19 TIME: 09:54 Chief Complaint Chief Complaint COVID 19 infection acute hypoxemic respiratory distress due to the above. Acute renal failure due to vasomotor nephropathy normocytic anemia Diabetes-Type II High Cholesterol Hypertension Severe protein calorie malnutrition FEN - ADA PPX - lovenox FULL CODE Dispo - inpatient History of Present Illness History of Present Illness Mr Olvera is a 69yo M w/ PMHx Diabetes-Type II, High Cholesterol, Hypertension who was in his usual state of health until 2 days prior ot his admission when he was evaluated at [facility] and found to be positive for COVID 19 virus, patient was discharged and given instructions to follow up in the nearest medical center would his symptoms worsen, Today he felt worse and more dyspneic reason why he came to the ER, he initially requiring 1 liter of oxygen 11/28: Febrile 101 3 F overnight. Procalcitonin elevated, INR 1.4, WBC 9.1, Hb 11.9, platelets 189, NA 137, K3.4, BUN 39, CR 2.8, glucose 240. He is short of breath with cough. He is insistent he does not wish for convalescent FFP if his O2 needs continues to increase. Now on 4L NCO2. 11/29: Febrile to 101.5 F overnight. Creatinine increased to 4.1, he still very short of breath worsening cough, increased from 6 L nasal cannula overnight to 15 L nonrebreather facemask. I discussed with pulmonology to transferred out of the ICU. I have asked the patient to reconsider convalesce and FFP and will discuss with his family. 11/30: No acute events reported overnight, case discussed with nursing staff patient in no acute distress no complaints during my visit seems to be tolerating Vapotherm well hopefully he will be able to continue with improving, encourage proning position if tolerated 12/01: No acute events reported overnight, case discussed with nursing staff patient in no acute distress no complaints during my visit, given update patient 's over the phone reassurance has been provided no new complaints seems to be status quo. Encourage more activity as tolerated in prone positioning Vitals Vitals Vital Signs Date Time Temp Pulse Resp B/P (MAP) Pulse Ox O2 Delivery O2 Flow Rate FiO2 12/02/19 09:00 58 27 141/60 (87) 89 vapo therm 40l /100% 40.0 12/02/19 08:00 98.0 98.0 Physical Exam General: Alert Heart: Regular rate, Normal S1, Normal S2 Lungs: Wheezing, Crackles Abdomen: Normal bowel sounds, Soft Extremities: No clubbing, No cyanosis Skin: No rashes, No breakdown Labs LABS Laboratory Tests Test 12/01/19 11:59 12/01/19 17:10 12/01/19 20:09 12/02/19 05:05 Glucose (Fingerstick) 382 mg/dL (70-99) 461 mg/dL (70-99) 367 mg/dL (70-99) White Blood Count 14.6 x10^3/uL (4.0-11.0) Red Blood Count 3.72 x10^6/uL (4.30-5.70) Hemoglobin 11.1 g/dL (13.0-17.5) Hematocrit 34.0 % (39.0-53.0) Mean Corpuscular Volume 91 fL (79-100) Mean Corpuscular Hemoglobin 30 pg (25-35) Mean Corpuscular Hemoglobin Concent 33 g/dL (31-37) Red Cell Distribution Width 13.1 % (11.5-14.5) Platelet Count 195 x10^3/uL (140-400) Neutrophils (%) (Auto) 89 % (31-73) Lymphocytes (%) (Auto) 7 % (24-48) Monocytes (%) (Auto) 4 % (0-9) Eosinophils (%) (Auto) 0 % (0-3) Basophils (%) (Auto) 0 % (0-3) Neutrophils # (Auto) 12.9 x10^3/uL (1.8-7.7) Lymphocytes # (Auto) 1.1 x10^3/uL (1.0-4.8) Monocytes # (Auto) 0.6 x10^3/uL (0.0-1.1) Eosinophils # (Auto) 0.0 x10^3/uL (0.0-0.7) Basophils # (Auto) 0.0 x10^3/uL (0.0-0.2) Sodium Level 137 mmol/L (136-145) Potassium Level 3.7 mmol/L (3.5-5.1) Chloride Level 99 mmol/L (98-107) Carbon Dioxide Level 28 mmol/L (21-32) Anion Gap 10 (6-14) Blood Urea Nitrogen 66 mg/dL (8-26) Creatinine 3.6 mg/dL (0.7-1.3) Estimated GFR (Cockcroft-Gault) 20.4 BUN/Creatinine Ratio 18 (6-20) Glucose Level 140 mg/dL (70-99) Calcium Level 7.8 mg/dL (8.5-10.1) Total Bilirubin 0.3 mg/dL (0.2-1.0) Aspartate Amino Transf (AST/SGOT) 33 U/L (15-37) Alanine Aminotransferase (ALT/SGPT) 33 U/L (16-63) Alkaline Phosphatase 55 U/L (46-116) Total Protein 6.6 g/dL (6.4-8.2) Albumin 1.6 g/dL (3.4-5.0) Albumin/Globulin Ratio 0.3 (1.0-1.7) Test 12/02/19 07:45 12/02/19 08:00 O2 Saturation 85 % (92-99) Arterial Blood pH 7.44 (7.35-7.45) Arterial Blood pCO2 at Patient Temp 40 mmHg (35-46) Arterial Blood pO2 at Patient Temp 49 mmHg (65-108) Arterial Blood HCO3 26 mmol/L (21-28) Arterial Blood Base Excess 2 mmol/L (-3-3) FiO2 100@40l vapo Glucose (Fingerstick) 131 mg/dL (70-99) Assessment and Plan Assessmemt and Plan Problems Medical Problems: (1) ARF (acute renal failure) Status: Acute (2) Fever Status: Acute (3) Hypoxemia Status: Acute (4) Sepsis Status: Acute Comment Review of Relevant I have reviewed the following items bren (where applicable) has been applied. Labs Laboratory Tests Test 11/30/19 10:15 11/30/19 14:11 11/30/19 17:40 11/30/19 22:36 D-Dimer (Natty) 1.24 ug/mlFEU (0.00-0.50) Glucose (Fingerstick) 76 mg/dL (70-99) 212 mg/dL (70-99) Urine Collection Type U cath Urine Color Yellow Urine Clarity Cloudy Urine pH 5.0 (<5.0-8.0) Urine Specific [place] 1.015 (1.000-1.030) Urine Protein 30 mg/dL (NEG-TRACE) Urine Glucose (UA) Negative mg/dL (NEG) Urine Ketones (Stick) Negative mg/dL (NEG) Urine Blood Negative (NEG) Urine Nitrite Negative (NEG) Urine Bilirubin Negative (NEG) Urine Urobilinogen Dipstick 1.0 mg/dL (0.2 mg/dL) Urine Leukocyte Esterase Negative (NEG) Urine RBC 0 /HPF (0-2) Urine WBC 0 /HPF (0-4) Urine Amorphous Sediment Present /HPF Urine Bacteria 0 /HPF (0-FEW) Test 12/01/19 02:30 12/01/19 08:30 12/01/19 09:00 12/01/19 11:59 Urine Collection Type Unknown Urine Color Yellow Urine Clarity Cloudy Urine pH 5.0 (<5.0-8.0) Urine Specific [place] 1.015 (1.000-1.030) Urine Protein 30 mg/dL (NEG-TRACE) Urine Glucose (UA) Negative mg/dL (NEG) Urine Ketones (Stick) Negative mg/dL (NEG) Urine Blood Large (NEG) Urine Nitrite Negative (NEG) Urine Bilirubin Negative (NEG) Urine Urobilinogen Dipstick 0.2 mg/dL (0.2 mg/dL) Urine Leukocyte Esterase Trace (NEG) Urine RBC 20-40 /HPF (0-2) Urine WBC 1-4 /HPF (0-4) Urine Squamous Epithelial Cells Few /LPF Urine Amorphous Sediment Present /HPF Urine Bacteria Few /HPF (0-FEW) Urine Granular Casts Few /HPF Urine Mucus Slight /LPF Glucose (Fingerstick) 335 mg/dL (70-99) 382 mg/dL (70-99) White Blood Count 6.8 x10^3/uL (4.0-11.0) Red Blood Count 3.72 x10^6/uL (4.30-5.70) Hemoglobin 11.2 g/dL (13.0-17.5) Hematocrit 34.7 % (39.0-53.0) Mean Corpuscular Volume 93 fL (79-100) Mean Corpuscular Hemoglobin 30 pg (25-35) Mean Corpuscular Hemoglobin Concent 32 g/dL (31-37) Red Cell Distribution Width 13.6 % (11.5-14.5) Platelet Count 180 x10^3/uL (140-400) Neutrophils (%) (Auto) 80 % (31-73) Lymphocytes (%) (Auto) 17 % (24-48) Monocytes (%) (Auto) 3 % (0-9) Eosinophils (%) (Auto) 0 % (0-3) Basophils (%) (Auto) 0 % (0-3) Neutrophils # (Auto) 5.4 x10^3/uL (1.8-7.7) Lymphocytes # (Auto) 1.1 x10^3/uL (1.0-4.8) Monocytes # (Auto) 0.2 x10^3/uL (0.0-1.1) Eosinophils # (Auto) 0.0 x10^3/uL (0.0-0.7) Basophils # (Auto) 0.0 x10^3/uL (0.0-0.2) Sodium Level 136 mmol/L (136-145) Potassium Level 4.0 mmol/L (3.5-5.1) Chloride Level 98 mmol/L (98-107) Carbon Dioxide Level 29 mmol/L (21-32) Anion Gap 9 (6-14) Blood Urea Nitrogen 65 mg/dL (8-26) Creatinine 4.3 mg/dL (0.7-1.3) Estimated GFR (Cockcroft-Gault) 16.7 BUN/Creatinine Ratio 15 (6-20) Glucose Level 342 mg/dL (70-99) Calcium Level 7.8 mg/dL (8.5-10.1) Total Bilirubin 0.4 mg/dL (0.2-1.0) Aspartate Amino Transf (AST/SGOT) 37 U/L (15-37) Alanine Aminotransferase (ALT/SGPT) 40 U/L (16-63) Alkaline Phosphatase 53 U/L (46-116) Total Protein 6.7 g/dL (6.4-8.2) Albumin 1.7 g/dL (3.4-5.0) Albumin/Globulin Ratio 0.3 (1.0-1.7) Test 12/01/19 17:10 12/01/19 20:09 12/02/19 05:05 8/25/20 07:45 Glucose (Fingerstick) 461 mg/dL (70-99) 367 mg/dL (70-99) White Blood Count 14.6 x10^3/uL (4.0-11.0) Red Blood Count 3.72 x10^6/uL (4.30-5.70) Hemoglobin 11.1 g/dL (13.0-17.5) Hematocrit 34.0 % (39.0-53.0) Mean Corpuscular Volume 91 fL (79-100) Mean Corpuscular Hemoglobin 30 pg (25-35) Mean Corpuscular Hemoglobin Concent 33 g/dL (31-37) Red Cell Distribution Width 13.1 % (11.5-14.5) Platelet Count 195 x10^3/uL (140-400) Neutrophils (%) (Auto) 89 % (31-73) Lymphocytes (%) (Auto) 7 % (24-48) Monocytes (%) (Auto) 4 % (0-9) Eosinophils (%) (Auto) 0 % (0-3) Basophils (%) (Auto) 0 % (0-3) Neutrophils # (Auto) 12.9 x10^3/uL (1.8-7.7) Lymphocytes # (Auto) 1.1 x10^3/uL (1.0-4.8) Monocytes # (Auto) 0.6 x10^3/uL (0.0-1.1) Eosinophils # (Auto) 0.0 x10^3/uL (0.0-0.7) Basophils # (Auto) 0.0 x10^3/uL (0.0-0.2) Sodium Level 137 mmol/L (136-145) Potassium Level 3.7 mmol/L (3.5-5.1) Chloride Level 99 mmol/L (98-107) Carbon Dioxide Level 28 mmol/L (21-32) Anion Gap 10 (6-14) Blood Urea Nitrogen 66 mg/dL (8-26) Creatinine 3.6 mg/dL (0.7-1.3) Estimated GFR (Cockcroft-Gault) 20.4 BUN/Creatinine Ratio 18 (6-20) Glucose Level 140 mg/dL (70-99) Calcium Level 7.8 mg/dL (8.5-10.1) Total Bilirubin 0.3 mg/dL (0.2-1.0) Aspartate Amino Transf (AST/SGOT) 33 U/L (15-37) Alanine Aminotransferase (ALT/SGPT) 33 U/L (16-63) Alkaline Phosphatase 55 U/L (46-116) Total Protein 6.6 g/dL (6.4-8.2) Albumin 1.6 g/dL (3.4-5.0) Albumin/Globulin Ratio 0.3 (1.0-1.7) O2 Saturation 85 % (92-99) Arterial Blood pH 7.44 (7.35-7.45) Arterial Blood pCO2 at Patient Temp 40 mmHg (35-46) Arterial Blood pO2 at Patient Temp 49 mmHg (65-108) Arterial Blood HCO3 26 mmol/L (21-28) Arterial Blood Base Excess 2 mmol/L (-3-3) FiO2 100@40l vapo Test 12/02/19 08:00 Glucose (Fingerstick) 131 mg/dL (70-99) Laboratory Tests Test 12/01/19 11:59 12/01/19 17:10 12/01/19 20:09 12/02/19 05:05 Glucose (Fingerstick) 382 mg/dL (70-99) 461 mg/dL (70-99) 367 mg/dL (70-99) White Blood Count 14.6 x10^3/uL (4.0-11.0) Red Blood Count 3.72 x10^6/uL (4.30-5.70) Hemoglobin 11.1 g/dL (13.0-17.5) Hematocrit 34.0 % (39.0-53.0) Mean Corpuscular Volume 91 fL (79-100) Mean Corpuscular Hemoglobin 30 pg (25-35) Mean Corpuscular Hemoglobin Concent 33 g/dL (31-37) Red Cell Distribution Width 13.1 % (11.5-14.5) Platelet Count 195 x10^3/uL (140-400) Neutrophils (%) (Auto) 89 % (31-73) Lymphocytes (%) (Auto) 7 % (24-48) Monocytes (%) (Auto) 4 % (0-9) Eosinophils (%) (Auto) 0 % (0-3) Basophils (%) (Auto) 0 % (0-3) Neutrophils # (Auto) 12.9 x10^3/uL (1.8-7.7) Lymphocytes # (Auto) 1.1 x10^3/uL (1.0-4.8) Monocytes # (Auto) 0.6 x10^3/uL (0.0-1.1) Eosinophils # (Auto) 0.0 x10^3/uL (0.0-0.7) Basophils # (Auto) 0.0 x10^3/uL (0.0-0.2) Sodium Level 137 mmol/L (136-145) Potassium Level 3.7 mmol/L (3.5-5.1) Chloride Level 99 mmol/L (98-107) Carbon Dioxide Level 28 mmol/L (21-32) Anion Gap 10 (6-14) Blood Urea Nitrogen 66 mg/dL (8-26) Creatinine 3.6 mg/dL (0.7-1.3) Estimated GFR (Cockcroft-Gault) 20.4 BUN/Creatinine Ratio 18 (6-20) Glucose Level 140 mg/dL (70-99) Calcium Level 7.8 mg/dL (8.5-10.1) Total Bilirubin 0.3 mg/dL (0.2-1.0) Aspartate Amino Transf (AST/SGOT) 33 U/L (15-37) Alanine Aminotransferase (ALT/SGPT) 33 U/L (16-63) Alkaline Phosphatase 55 U/L (46-116) Total Protein 6.6 g/dL (6.4-8.2) Albumin 1.6 g/dL (3.4-5.0) Albumin/Globulin Ratio 0.3 (1.0-1.7) Test 12/02/19 07:45 12/02/19 08:00 O2 Saturation 85 % (92-99) Arterial Blood pH 7.44 (7.35-7.45) Arterial Blood pCO2 at Patient Temp 40 mmHg (35-46) Arterial Blood pO2 at Patient Temp 49 mmHg (65-108) Arterial Blood HCO3 26 mmol/L (21-28) Arterial Blood Base Excess 2 mmol/L (-3-3) FiO2 100@40l vapo Glucose (Fingerstick) 131 mg/dL (70-99) Microbiology 12/01/19 Urine Culture - Final, Complete Medications Current Medications Ondansetron HCl (Zofran) 4 mg 1X ONCE IV Last administered on 11/28/19at 16:25; Start 11/28/19 at 15:30; Stop 11/28/19 at 15:36; Status DC Acetaminophen (Tylenol) 1,000 mg 1X ONCE PO Last administered on 11/28/19at 16:25; Start 11/28/19 at 15:45; Stop 11/28/19 at 16:03; Status DC Acetaminophen (Tylenol) 650 mg PRN Q6HRS PRN PO Headaches, Temp > 101.5' Last administered on 11/30/19at 08:45; Start 11/28/19 at 17:45 Lorazepam (Ativan Inj) 0.5 mg PRN Q6HRS PRN IVP ANXIETY / AGITATION; Start 11/28/19 at 17:45 Ondansetron HCl (Zofran) 4 mg PRN Q6HRS PRN IVP NAUSEA/VOMITING; Start 11/28/19 at 17:45 Famotidine (Pepcid Vial) 20 mg BID IVP Last administered on 12/02/19at 08:33; Start 11/28/19 at 21:00 Info (Icu Electrolyte Protocol) 1 ea DAILY MC ; Start 11/29/19 at 09:00; Stop 11/28/19 at 18:16; Status DC Enoxaparin Sodium (Lovenox 40mg Syringe) 150 mg Q12HR SQ ; Start 11/28/19 at 21:00; Stop 11/28/19 at 18:16; Status DC Sodium Chloride (Normal Saline Flush) 3 ml QSHIFT PRN IV AFTER MEDS AND BLOOD DRAWS; Start 11/28/19 at 17:45 Acetaminophen/ Hydrocodone Bitart (Lortab 5/325) 1 tab PRN Q4HRS PRN PO MILD PAIN, 2ND CHOICE; Start 11/28/19 at 17:45 Morphine Sulfate (Morphine Sulfate) 1 mg PRN Q1HR PRN IV PAIN; Start 11/28/19 at 17:45 Senna/Docusate Sodium (Senna Plus) 1 tab BID PO Last administered on 12/02/19at 08:33; Start 11/28/19 at 21:00 Lactulose (Lactulose) 20 gm PRN Q12HR PRN PO CONSTIPATION; Start 11/28/19 at 17:45 Amlodipine Besylate (Norvasc) 5 mg DAILY PO Last administered on 12/02/19 08:33; Start 11/29/19 at 09:00 Aspirin (Aspirin Chewable) 81 mg DAILY PO Last administered on 12/02/19 08:33; Start 11/29/19 at 09:00 Furosemide (Lasix) 20 mg DAILY PO Last administered on 12/01/19 08:19; Start 11/29/19 at 09:00; Stop 12/01/19 at 12:52; Status DC Glipizide (Glucotrol) 2.5 mg DAILY PO Last administered on 11/30/19at 08:44; Start 11/29/19 at 09:00; Stop 12/01/19 at 08:12; Status DC Acetaminophen/ Hydrocodone Bitart (Lortab 5/325) 1 tab PRN Q6HRS PRN PO PAIN; Start 11/28/19 at 17:45; Status UNV Lisinopril (Prinivil) 40 mg DAILY PO Last administered on 12/01/19 08:19; Start 11/29/19 at 09:00; Stop 12/01/19 at 12:52; Status DC Tamsulosin HCl (Flomax) 0.4 mg DAILY PO Last administered on 12/02/19 08:33; Start 11/29/19 at 09:00 Hydrochlorothiazide (Hydrodiuril) 25 mg DAILY PO Last administered on 12/01/19 08:17; Start 11/29/19 at 09:00; Stop 12/01/19 at 12:52; Status DC Cyclobenzaprine HCl (Flexeril) 10 mg TID PO Last administered on 11/30/19at 22:16; Start 11/28/19 at 21:00; Stop 12/02/19 at 06:46; Status DC Magnesium Sulfate 50 ml @ 25 mls/hr 1X ONCE IV Last administered on 11/28/19at 19:10; Start 11/28/19 at 19:00; Stop 11/28/19 at 20:59; Status DC Zinc Sulfate (Orazinc) 220 mg DAILY PO Last administered on 12/02/19 08:33; Start 11/29/19 at 09:00 Ascorbic Acid (Vitamin C) 500 mg Q6HRS PO Last administered on 8/25/20at 06:00; Start 11/29/19 at 00:00 Vitamin D (Vitamin D3) 1,000 unit BID PO Last administered on 12/02/19at 08:33; Start 11/28/19 at 21:00 Atorvastatin Calcium (Lipitor) 40 mg QHS PO Last administered on 12/01/19at 21 :17; Start 11/28/19 at 21:00 Enoxaparin Sodium (Lovenox 80mg Syringe) 80 mg 1X ONCE SQ Last administered on 11/28/19at 19:10; Start 11/28/19 at 19:00; Stop 11/28/19 at 19:01; Status DC Enoxaparin Sodium (Lovenox 40mg Syringe) 40 mg Q12HR SQ Last administered on 11/29/19at 20:52; Start 11/29/19 at 09:00; Stop 11/30/19 at 10:00; Status DC Thiamine HCl 200 mg/Dextrose 52 ml @ 102 mls/hr Q12HR IV Last administered on 12/02/19at 08:50; Start 11/28/19 at 19:30 Potassium Chloride (Klor-Con) 40 meq 1X ONCE PO Last administered on 11/29/19at 17:15; Start 11/29/19 at 16:45; Stop 11/29/19 at 16:46; Status DC Methylprednisolone Sodium Succinate (SOLU-Medrol 125MG VIAL) 60 mg Q8HRS IV Last administered on 12/02/19at 05:59; Start 11/30/19 at 09:00 Piperacillin Sod/ Tazobactam Sod (Zosyn Per Pharmacy) 1 each PRN DAILY PRN MC SEE COMMENTS; Start 11/30/19 at 08:45 Piperacillin Sod/ Tazobactam Sod 3.375 gm/Sodium Chloride 50 ml @ 100 mls/hr Q6HRS IV Last administered on 12/02/19at 06:00; Start 11/30/19 at 12:00 Heparin Sodium (Porcine) (Heparin Sodium) 5,000 unit Q8HRS SQ Last administered on 12/02/19at 06:00; Start 11/30/19 at 14:00 Sterile Water (WATER for RESP) 1,000 ml CONT PRN INH VIA VAPOTHERM DEVICE Last administered on 12/02/19at 07:33; Start 11/30/19 at 17:30 Insulin Glargine (Lantus Syringe) 20 unit BID SQ Last administered on 12/01/19at 12:30; Start 12/01/19 at 12:30; Stop 12/01/19 at 17:33; Status DC Insulin Human Lispro (HumaLOG) 0-9 UNITS TIDWMEALS SQ Last administered on 12/01/19at 17:33; Start 12/01/19 at 12:30; Stop 12/01/19 at 21:03; Status DC Dextrose (Dextrose 50%-Water Syringe) 12.5 gm PRN Q15MIN PRN IV SEE COMMENTS; Start 12/01/19 at 12:15 Sodium Chloride 1,000 ml @ 75 mls/hr 1X ONCE IV Last administered on 12/01/19at 12:58; Start 12/01/19 at 13:00; Stop 12/02/19 at 02:19; Status DC Insulin Glargine (Lantus Syringe) 30 unit BID SQ Last administered on 12/02/19at 08:34; Start 12/01/19 at 21:00 Insulin Human Lispro (HumaLOG) 10 units TIDWMEALS SQ Last administered on 12/01/19at 17:49; Start 12/01/19 at 17:45; Stop 12/01/19 at 21:04; Status DC Insulin Human Lispro (HumaLOG) 0-9 UNITS QIDACHS SQ ; Start 12/02/19 at 07:30 Insulin Human Lispro (HumaLOG) 15 units TIDWMEALS SQ Last administered on 12/02/19at 08:34; Start 12/02/19 at 08:00 Insulin Human Lispro (HumaLOG) 9 units 1X ONCE SQ Last administered on 12/01/19at 21:16; Start 12/01/19 at 21:30; Stop 12/01/19 at 21:31; Status DC Cyclobenzaprine HCl (Flexeril) 10 mg PRN TID PRN PO MUSCLE SPASMS; Start 12/02/19 at 06:45 Active Scripts Active [place] 5-325 Tablet (Acetaminophen/Hydrocodone Bitart) 1 Each Tablet 1 Tab PO PRN Q6HRS PRN Orphenadrine Citrate 100 Mg Tablet.er 1 Tab PO BID Amlodipine Besylate 5 Mg Tablet 5 Mg PO DAILY Reported Lisinopril 40 Mg Tablet 40 Mg PO DAILY Glipizide 5 Mg Tablet 2.5 Mg PO DAILY Hydrochlorothiazide Tablet (Hydrochlorothiazide) 12.5 Mg Tablet 25 Mg PO DAILY Furosemide 20 Mg Tablet 20 Mg PO DAILY Tamsulosin Hcl 0.4 Mg Cap.er.24h 1 Cap PO DAILY Aspirin 81 Mg Tab.chew 81 Mg PO DAILY Metformin Hcl 500 Mg Tablet 500 Mg PO DAILY Vitals/I & O Vital Sign - Last 24 Hours 12/01/19 12/01/19 12/01/19 12/01/19 10:00 11:00 12:00 12:00 Temp 97.5 97.5 Pulse 69 59 61 Resp 35 20 26 B/P (MAP) 113/70 (84) 116/65 (82) 122/69 (86) Pulse Ox 93 97 89 O2 Delivery vapo therm 40l /100% vapo therm 40l /100% Nasal Cannula vapo therm 40l /100% O2 Flow Rate 40.0 40.0 40.0 40.0 12/01/19 12/01/19 12/01/19 12/01/19 12:15 13:00 14:00 15:00 Pulse 67 62 59 Resp B/P (MAP) 140/83 (102) 122/70 (87) 134/73 (93) Pulse Ox 93 85 88 93 O2 Delivery VAPOTHERM vapo therm 40l /100% vapo therm 40l /100% vapo therm 40l /100% O2 Flow Rate 40.0 40.0 40.0 40.0 12/01/19 12/01/19 12/01/19 12/01/19 15:56 16:00 16:00 17:00 Temp 97.9 97.9 Pulse 56 58 Resp B/P (MAP) 123/69 (87) 140/79 (99) Pulse Ox 92 86 94 O2 Delivery VAPOTHERM Nasal Cannula vapo therm 40l /100% vapo therm 40l /100% O2 Flow Rate 40.0 40.0 40.0 40.0 12/01/19 12/01/19 12/01/19 12/01/19 18:00 19:00 19:30 20:00 Temp 97.8 97.8 Pulse 65 56 57 Resp B/P (MAP) 124/74 (91) 123/61 (81) 138/71 (93) Pulse Ox 89 92 93 90 O2 Delivery vapo therm 40l /100% vapo therm 40l /100% VAPOTHERM vapo therm 40l /100% O2 Flow Rate 40.0 40.0 40.0 40.0 12/01/19 12/01/19 12/01/19 12/01/19 20:00 21:00 22:00 22:11 Pulse 57 56 Resp 30 B/P (MAP) 128/66 (86) 110/62 (78) Pulse Ox 91 86 89 O2 Delivery Nasal Cannula vapo therm 40l /100% vapo therm 40l /100% VAPOTHERM O2 Flow Rate 40.0 40.0 40.0 40.0 12/01/19 12/02/19 12/02/19 12/02/19 23:00 00:00 00:00 00:01 Temp 97.9 97.9 Pulse 52 52 Resp 27 B/P (MAP) 133/67 (89) 126/62 (83) Pulse Ox 90 87 88 O2 Delivery vapo therm 40l /100% vapo therm 40l /100% Nasal Cannula VAPOTHERM O2 Flow Rate 40.0 40.0 40.0 40.0 12/02/19 12/02/19 12/02/19 12/02/19 01:00 02:00 03:00 03:42 Pulse 53 48 47 Resp 27 24 27 B/P (MAP) 126/62 (83) 122/72 (89) 135/73 (93) Pulse Ox 88 96 95 94 O2 Delivery vapo therm 40l /100% vapo therm 40l /100% vapo therm 40l /100% VAPOTHERM O2 Flow Rate 40.0 40.0 40.0 40.0 12/02/19 12/02/19 12/02/19 12/02/19 04:00 04:00 05:00 06:00 Temp 97.5 97.5 Pulse 52 50 49 Resp 30 26 22 B/P (MAP) 152/77 (102) 136/74 (94) 134/80 (98) Pulse Ox 93 92 94 O2 Delivery vapo therm 40l /100% Nasal Cannula vapo therm 40l /100% vapo therm 40l /100% O2 Flow Rate 40.0 40.0 40.0 40.0 12/02/19 12/02/19 12/02/19 12/02/19 07:00 07:42 08:00 08:00 Temp 98.0 98.0 Pulse 52 52 Resp 30 29 B/P (MAP) 120/66 (84) 125/70 (88) Pulse Ox 88 87 90 O2 Delivery vapo therm 40l /100% VAPOTHERM vapo therm 40l /100% Nasal Cannula O2 Flow Rate 40.0 40.0 40.0 40.0 12/02/19 12/02/19 08:33 09:00 Pulse 57 58 Resp 27 B/P (MAP) 125/70 141/60 (87) Pulse Ox 89 O2 Delivery vapo therm 40l /100% O2 Flow Rate 40.0 Intake and Output 12/01/19 12/01/19 12/02/19 15:00 23:00 07:00 Intake Total 1754 ml 912 ml 550 ml Output Total 525 ml 550 ml 825 ml Balance 1229 ml 362 ml -275 ml Justicifation of Admission Dx: Justifications for Admission: Justification of Admission Dx: Yes Sepsis: Hypoxemia RAN GONZALES MD Dec 02, 2019 09:55
[2019-12-02 10:01] LABS: % BANDS 7 % (0-9); % LYMPHS 9 % (24-48); % MONOS 1 % (0-10); % SEGS 83 % (35-66); PLT ESTIMATE ADEQUATE (ADEQUATE)
--- NOTE | 2019-12-02 10:02 | PDOC ---
PULMONARY PROGRESS NOTES DATE: 12/02/19 TIME: 09:56 Subjective comfortable on vapotherm desaturate with minimal acitivity Vitals Vital Signs Date Time Temp Pulse Resp B/P (MAP) Pulse Ox O2 Delivery O2 Flow Rate FiO2 12/02/19 09:00 58 27 141/60 (87) 89 vapo therm 40l /100% 40.0 12/02/19 08:00 98.0 98.0 Comments visual exam done no soa, no skin rash General: Alert, No acute distress Cardiovascular: S1, S2 Labs Laboratory Tests Test 11/30/19 10:15 11/30/19 14:11 11/30/19 17:40 11/30/19 22:36 D-Dimer (Natty) 1.24 ug/mlFEU (0.00-0.50) Glucose (Fingerstick) 76 mg/dL (70-99) 212 mg/dL (70-99) Urine Collection Type U cath Urine Color Yellow Urine Clarity Cloudy Urine pH 5.0 (<5.0-8.0) Urine Specific [place] 1.015 (1.000-1.030) Urine Protein 30 mg/dL (NEG-TRACE) Urine Glucose (UA) Negative mg/dL (NEG) Urine Ketones (Stick) Negative mg/dL (NEG) Urine Blood Negative (NEG) Urine Nitrite Negative (NEG) Urine Bilirubin Negative (NEG) Urine Urobilinogen Dipstick 1.0 mg/dL (0.2 mg/dL) Urine Leukocyte Esterase Negative (NEG) Urine RBC 0 /HPF (0-2) Urine WBC 0 /HPF (0-4) Urine Amorphous Sediment Present /HPF Urine Bacteria 0 /HPF (0-FEW) Test 12/01/19 02:30 12/01/19 08:30 12/01/19 09:00 12/01/19 11:59 Urine Collection Type Unknown Urine Color Yellow Urine Clarity Cloudy Urine pH 5.0 (<5.0-8.0) Urine Specific [place] 1.015 (1.000-1.030) Urine Protein 30 mg/dL (NEG-TRACE) Urine Glucose (UA) Negative mg/dL (NEG) Urine Ketones (Stick) Negative mg/dL (NEG) Urine Blood Large (NEG) Urine Nitrite Negative (NEG) Urine Bilirubin Negative (NEG) Urine Urobilinogen Dipstick 0.2 mg/dL (0.2 mg/dL) Urine Leukocyte Esterase Trace (NEG) Urine RBC 20-40 /HPF (0-2) Urine WBC 1-4 /HPF (0-4) Urine Squamous Epithelial Cells Few /LPF Urine Amorphous Sediment Present /HPF Urine Bacteria Few /HPF (0-FEW) Urine Granular Casts Few /HPF Urine Mucus Slight /LPF Glucose (Fingerstick) 335 mg/dL (70-99) 382 mg/dL (70-99) White Blood Count 6.8 x10^3/uL (4.0-11.0) Red Blood Count 3.72 x10^6/uL (4.30-5.70) Hemoglobin 11.2 g/dL (13.0-17.5) Hematocrit 34.7 % (39.0-53.0) Mean Corpuscular Volume 93 fL (79-100) Mean Corpuscular Hemoglobin 30 pg (25-35) Mean Corpuscular Hemoglobin Concent 32 g/dL (31-37) Red Cell Distribution Width 13.6 % (11.5-14.5) Platelet Count 180 x10^3/uL (140-400) Neutrophils (%) (Auto) 80 % (31-73) Lymphocytes (%) (Auto) 17 % (24-48) Monocytes (%) (Auto) 3 % (0-9) Eosinophils (%) (Auto) 0 % (0-3) Basophils (%) (Auto) 0 % (0-3) Neutrophils # (Auto) 5.4 x10^3/uL (1.8-7.7) Lymphocytes # (Auto) 1.1 x10^3/uL (1.0-4.8) Monocytes # (Auto) 0.2 x10^3/uL (0.0-1.1) Eosinophils # (Auto) 0.0 x10^3/uL (0.0-0.7) Basophils # (Auto) 0.0 x10^3/uL (0.0-0.2) Sodium Level 136 mmol/L (136-145) Potassium Level 4.0 mmol/L (3.5-5.1) Chloride Level 98 mmol/L (98-107) Carbon Dioxide Level 29 mmol/L (21-32) Anion Gap 9 (6-14) Blood Urea Nitrogen 65 mg/dL (8-26) Creatinine 4.3 mg/dL (0.7-1.3) Estimated GFR (Cockcroft-Gault) 16.7 BUN/Creatinine Ratio 15 (6-20) Glucose Level 342 mg/dL (70-99) Calcium Level 7.8 mg/dL (8.5-10.1) Total Bilirubin 0.4 mg/dL (0.2-1.0) Aspartate Amino Transf (AST/SGOT) 37 U/L (15-37) Alanine Aminotransferase (ALT/SGPT) 40 U/L (16-63) Alkaline Phosphatase 53 U/L (46-116) Total Protein 6.7 g/dL (6.4-8.2) Albumin 1.7 g/dL (3.4-5.0) Albumin/Globulin Ratio 0.3 (1.0-1.7) Test 12/01/19 17:10 12/01/19 20:09 12/02/19 05:05 12/02/19 07:45 Glucose (Fingerstick) 461 mg/dL (70-99) 367 mg/dL (70-99) White Blood Count 14.6 x10^3/uL (4.0-11.0) Red Blood Count 3.72 x10^6/uL (4.30-5.70) Hemoglobin 11.1 g/dL (13.0-17.5) Hematocrit 34.0 % (39.0-53.0) Mean Corpuscular Volume 91 fL (79-100) Mean Corpuscular Hemoglobin 30 pg (25-35) Mean Corpuscular Hemoglobin Concent 33 g/dL (31-37) Red Cell Distribution Width 13.1 % (11.5-14.5) Platelet Count 195 x10^3/uL (140-400) Neutrophils (%) (Auto) 89 % (31-73) Lymphocytes (%) (Auto) 7 % (24-48) Monocytes (%) (Auto) 4 % (0-9) Eosinophils (%) (Auto) 0 % (0-3) Basophils (%) (Auto) 0 % (0-3) Neutrophils # (Auto) 12.9 x10^3/uL (1.8-7.7) Lymphocytes # (Auto) 1.1 x10^3/uL (1.0-4.8) Monocytes # (Auto) 0.6 x10^3/uL (0.0-1.1) Eosinophils # (Auto) 0.0 x10^3/uL (0.0-0.7) Basophils # (Auto) 0.0 x10^3/uL (0.0-0.2) Sodium Level 137 mmol/L (136-145) Potassium Level 3.7 mmol/L (3.5-5.1) Chloride Level 99 mmol/L (98-107) Carbon Dioxide Level 28 mmol/L (21-32) Anion Gap 10 (6-14) Blood Urea Nitrogen 66 mg/dL (8-26) Creatinine 3.6 mg/dL (0.7-1.3) Estimated GFR (Cockcroft-Gault) 20.4 BUN/Creatinine Ratio 18 (6-20) Glucose Level 140 mg/dL (70-99) Calcium Level 7.8 mg/dL (8.5-10.1) Total Bilirubin 0.3 mg/dL (0.2-1.0) Aspartate Amino Transf (AST/SGOT) 33 U/L (15-37) Alanine Aminotransferase (ALT/SGPT) 33 U/L (16-63) Alkaline Phosphatase 55 U/L (46-116) Total Protein 6.6 g/dL (6.4-8.2) Albumin 1.6 g/dL (3.4-5.0) Albumin/Globulin Ratio 0.3 (1.0-1.7) O2 Saturation 85 % (92-99) Arterial Blood pH 7.44 (7.35-7.45) Arterial Blood pCO2 at Patient Temp 40 mmHg (35-46) Arterial Blood pO2 at Patient Temp 49 mmHg (65-108) Arterial Blood HCO3 26 mmol/L (21-28) Arterial Blood Base Excess 2 mmol/L (-3-3) FiO2 100@40l vapo Test 12/02/19 08:00 Glucose (Fingerstick) 131 mg/dL (70-99) Laboratory Tests Test 12/01/19 11:59 12/01/19 17:10 12/01/19 20:09 12/02/19 05:05 Glucose (Fingerstick) 382 mg/dL (70-99) 461 mg/dL (70-99) 367 mg/dL (70-99) White Blood Count 14.6 x10^3/uL (4.0-11.0) Red Blood Count 3.72 x10^6/uL (4.30-5.70) Hemoglobin 11.1 g/dL (13.0-17.5) Hematocrit 34.0 % (39.0-53.0) Mean Corpuscular Volume 91 fL (79-100) Mean Corpuscular Hemoglobin 30 pg (25-35) Mean Corpuscular Hemoglobin Concent 33 g/dL (31-37) Red Cell Distribution Width 13.1 % (11.5-14.5) Platelet Count 195 x10^3/uL (140-400) Neutrophils (%) (Auto) 89 % (31-73) Lymphocytes (%) (Auto) 7 % (24-48) Monocytes (%) (Auto) 4 % (0-9) Eosinophils (%) (Auto) 0 % (0-3) Basophils (%) (Auto) 0 % (0-3) Neutrophils # (Auto) 12.9 x10^3/uL (1.8-7.7) Lymphocytes # (Auto) 1.1 x10^3/uL (1.0-4.8) Monocytes # (Auto) 0.6 x10^3/uL (0.0-1.1) Eosinophils # (Auto) 0.0 x10^3/uL (0.0-0.7) Basophils # (Auto) 0.0 x10^3/uL (0.0-0.2) Sodium Level 137 mmol/L (136-145) Potassium Level 3.7 mmol/L (3.5-5.1) Chloride Level 99 mmol/L (98-107) Carbon Dioxide Level 28 mmol/L (21-32) Anion Gap 10 (6-14) Blood Urea Nitrogen 66 mg/dL (8-26) Creatinine 3.6 mg/dL (0.7-1.3) Estimated GFR (Cockcroft-Gault) 20.4 BUN/Creatinine Ratio 18 (6-20) Glucose Level 140 mg/dL (70-99) Calcium Level 7.8 mg/dL (8.5-10.1) Total Bilirubin 0.3 mg/dL (0.2-1.0) Aspartate Amino Transf (AST/SGOT) 33 U/L (15-37) Alanine Aminotransferase (ALT/SGPT) 33 U/L (16-63) Alkaline Phosphatase 55 U/L (46-116) Total Protein 6.6 g/dL (6.4-8.2) Albumin 1.6 g/dL (3.4-5.0) Albumin/Globulin Ratio 0.3 (1.0-1.7) Test 12/02/19 07:45 12/02/19 08:00 O2 Saturation 85 % (92-99) Arterial Blood pH 7.44 (7.35-7.45) Arterial Blood pCO2 at Patient Temp 40 mmHg (35-46) Arterial Blood pO2 at Patient Temp 49 mmHg (65-108) Arterial Blood HCO3 26 mmol/L (21-28) Arterial Blood Base Excess 2 mmol/L (-3-3) FiO2 100@40l vapo Glucose (Fingerstick) 131 mg/dL (70-99) Medications Active Scripts Medications Dose Route/Sig Max Daily Dose Days Date Category [place] 5-325 Tablet (Acetaminophen/Hydrocodone Bitart) 1 Each Tablet 1 Tab PO PRN Q6HRS PRN 03/20/18 Rx Orphenadrine Citrate 100 Mg Tablet.er 1 Tab PO BID 03/20/18 Rx Amlodipine Besylate 5 Mg Tablet 5 Mg PO DAILY 02/20/17 Rx Lisinopril 40 Mg Tablet 40 Mg PO DAILY 02/18/17 Reported Glipizide 5 Mg Tablet 2.5 Mg PO DAILY 02/18/17 Reported Hydrochlorothiazide Tablet (Hydrochlorothiazide) 12.5 Mg Tablet 25 Mg PO DAILY 02/18/17 Reported Furosemide 20 Mg Tablet 20 Mg PO DAILY 02/18/17 Reported Tamsulosin Hcl 0.4 Mg Cap.er.24h 1 Cap PO DAILY 02/18/17 Reported Aspirin 81 Mg Tab.chew 81 Mg PO DAILY 02/18/17 Reported Metformin Hcl 500 Mg Tablet 500 Mg PO DAILY 02/18/17 Reported Impression . 1. Acute hypoxic respiratory failure secondary to COVID-19 pneumonia/acute lung injury/early acute respiratory distress syndrome. 2. Abnormal chest x-ray with bilateral interstitial infiltrates, suggestive of COVID-19 pneumonia. 3. No significant tobacco history. 4. Acute kidney injury. Could be acute kidney injury on chronic kidney disease. 5. Severe protein-calorie malnutrition. 6. Abnormal D-dimer, likely related to COVID pneumonia. Plan . RECOMMENDATIONS: 1. Vapotherm.wean Fio2 slowly 2. Added steroids for COVID-19 pneumonia. 3. Continue DVT prophylaxis high dose and monitor D-dimers. 4. empiric antibiotics. 5. try Lasix. 6. Follow renal recommendations. 7. d/w family 11/29 and again today in detail. explained need to discuss advance directives. They will talk among themselves and let us know TOTAL CRITICAL CARE TIME: 30 minutes. ABBY MOORE MD Dec 02, 2019 10:02
[2019-12-02] MEDS ORDERED: FUROSEMIDE 20 MG/2 ML VIAL. IVP ONE (10:15)
[2019-12-02] MEDS ORDERED: FUROSEMIDE 40 MG/4 ML VIAL. IVP ONE (10:45)
--- NOTE | 2019-12-02 13:12 | PDOC ---
Renal-Progress Notes Subjective Notes Notes LESS SOB History of Present Illness Hx of present illness STABLE NO CHANGE Vitals Vitals Vital Signs Date Time Temp Pulse Resp B/P (MAP) Pulse Ox O2 Delivery O2 Flow Rate FiO2 12/02/19 12:00 97.7 60 28 120/61 (80) 90 vapo therm 40l /100% 40.0 97.7 Weight Weight [ ] I.O. Intake and Output Intake and Output 12/02/19 07:00 Intake Total 3696 ml Output Total 1900 ml Balance 1796 ml Intake Oral 2340 ml IV Total 1356 ml Output Urine Total 1900 ml # Bowel Movements 1 Labs Labs Laboratory Tests Test 12/01/19 17:10 12/01/19 20:09 12/02/19 05:05 12/02/19 07:45 Glucose (Fingerstick) 461 mg/dL (70-99) 367 mg/dL (70-99) White Blood Count 14.6 x10^3/uL (4.0-11.0) Red Blood Count 3.72 x10^6/uL (4.30-5.70) Hemoglobin 11.1 g/dL (13.0-17.5) Hematocrit 34.0 % (39.0-53.0) Mean Corpuscular Volume 91 fL (79-100) Mean Corpuscular Hemoglobin 30 pg (25-35) Mean Corpuscular Hemoglobin Concent 33 g/dL (31-37) Red Cell Distribution Width 13.1 % (11.5-14.5) Platelet Count 195 x10^3/uL (140-400) Neutrophils (%) (Auto) 89 % (31-73) Lymphocytes (%) (Auto) 7 % (24-48) Monocytes (%) (Auto) 4 % (0-9) Eosinophils (%) (Auto) 0 % (0-3) Basophils (%) (Auto) 0 % (0-3) Neutrophils # (Auto) 12.9 x10^3/uL (1.8-7.7) Lymphocytes # (Auto) 1.1 x10^3/uL (1.0-4.8) Monocytes # (Auto) 0.6 x10^3/uL (0.0-1.1) Eosinophils # (Auto) 0.0 x10^3/uL (0.0-0.7) Basophils # (Auto) 0.0 x10^3/uL (0.0-0.2) Segmented Neutrophils % 83 % (35-66) Band Neutrophils % 7 % (0-9) Lymphocytes % 9 % (24-48) Monocytes % 1 % (0-10) Platelet Estimate Adequate (ADEQUATE) Sodium Level 137 mmol/L (136-145) Potassium Level 3.7 mmol/L (3.5-5.1) Chloride Level 99 mmol/L (98-107) Carbon Dioxide Level 28 mmol/L (21-32) Anion Gap 10 (6-14) Blood Urea Nitrogen 66 mg/dL (8-26) Creatinine 3.6 mg/dL (0.7-1.3) Estimated GFR (Cockcroft-Gault) 20.4 BUN/Creatinine Ratio 18 (6-20) Glucose Level 140 mg/dL (70-99) Calcium Level 7.8 mg/dL (8.5-10.1) Total Bilirubin 0.3 mg/dL (0.2-1.0) Aspartate Amino Transf (AST/SGOT) 33 U/L (15-37) Alanine Aminotransferase (ALT/SGPT) 33 U/L (16-63) Alkaline Phosphatase 55 U/L (46-116) Total Protein 6.6 g/dL (6.4-8.2) Albumin 1.6 g/dL (3.4-5.0) Albumin/Globulin Ratio 0.3 (1.0-1.7) O2 Saturation 85 % (92-99) Arterial Blood pH 7.44 (7.35-7.45) Arterial Blood pCO2 at Patient Temp 40 mmHg (35-46) Arterial Blood pO2 at Patient Temp 49 mmHg (65-108) Arterial Blood HCO3 26 mmol/L (21-28) Arterial Blood Base Excess 2 mmol/L (-3-3) FiO2 100@40l vapo Test 12/02/19 08:00 12/02/19 11:13 Glucose (Fingerstick) 131 mg/dL (70-99) 220 mg/dL (70-99) Micro Micro Microbiology 12/01/19 Urine Culture - Final, Complete Review of Systems Constitutional: yes: weakness, alert, oriented Ears/Nose/Throat: Yes: no symptom reported Eyes: Yes: no symptom reported Pulmonary: Yes dyspnea Cardiovascular: Yes edema Gastrointestional: Yes: no symptom reported Genitourinary: Yes: no symptom reported Musculoskeletal: Yes: muscle stiffness Skin: Yes no symptom reported Psychiatric/Neurological: Yes: no symptom reported Endocrine: Yes: no symptom reported Physical Exam General Appearance: no apparent distress, obese Skin: warm Respiratory: decreased breath sounds Heart: S1S2, RRR Abdomen: soft, bowel sounds present Genitourinary: bladder flat, hill catheter Extremities: pulses present, edema Neurology: alert, oriented, follow commands Musculoskeletal: Osteoarthritis Assessment Assessment IMP [id number] SLIGHTLY IMPROVED TO 3.6 CKD STAGE 3 WITH CR OF 1.3 COVID 19 PNEUMONIA ACUTE HYPOXIC RESP FAILURE MORBID OBESITY PROTEIN CALORIE MALNUTRITION HEMATURIA LIKELY HILL VS COVID 19 PLAN CONT TRIAL OF IVF'S VAPOTHERM MAINTAIN ADEQUATE MAP STOPPED PRESTON-I STOPPED THIAZIDE AND LASIX MAY STILL NEED DIALYSIS PT SNOW STATES HE IS AGREEABLE IF HD NEEDED D/W DR MOORE WILL FOLLOW TOTAL CRITICAL CARE TIME: 30 minutes. ANETA CANO MD Dec 02, 2019 13:12
--- NOTE | 2019-12-02 15:52 | NUR ---
SS following up with discharge planning. SS reviewed pt chart and discussed with pt RN. Pt remains on Vapotherm at this time. COVID19 positive. Pt on IV Zosyn. SS will continue to follow for discharge planning.
[2019-12-02] MEDS: IV NORMAL SALINE 1000ML BAG 1,000 ML IV SCH (16:04)
[2019-12-02] MEDS: LACTOBACILLUS RHAMNOSUS GG 1 CAPSULE. PO SCH (21:10)
[2019-12-02] MEDS: ATORVASTATIN CALCIUM 40 MG TABLET. PO SCH (21:10)
[2019-12-03] VITALS (23 sets, daily range): BP systolic 132–195; BP diastolic 63–97
[2019-12-03] MEDS: IV NORMAL SALINE 1000ML BAG 1,000 ML IV SCH ×2 (03:12→17:16)
--- NOTE | 2019-12-03 05:21 | NUR ---
Pt. had a good night. Did take off his vapo therm a couple of times and desated quickly into the 70's. Resting comfortably in chair.
[2019-12-03] MEDS: methylPREDNISolone SOD SUCC PF 125 MG/2 ML VIAL. IV SCH (05:38)
[2019-12-03] MEDS: ASCORBIC ACID 500 MG TABLET PO SCH ×3 (05:38→17:16)
[2019-12-03] MEDS: HEPARIN for SUB-Q USE 5,000 UNIT/ML VIAL. SQ SCH ×3 (05:39→20:16)
[2019-12-03] MEDS: PIPERACILLIN/TAZOBACTAM 3.375 GM in IV NORMAL SALINE 50ML 50 ML IV SCH ×3 (05:39→17:31)
[2019-12-03 05:50] LABS: ALBUMIN 1.8 g/dL (3.4-5.0); ALBUMIN/GLOBULIN RATIO 0.4 (1.0-1.7); CALCIUM 8.3 mg/dL (8.5-10.1); CREATININE 3.8 mg/dL (0.7-1.3); GFR 19.2; POTASSIUM 3.6 mmol/L (3.5-5.1); TOTAL BILIRUBIN 0.3 mg/dL (0.2-1.0); TOTAL PROTEIN 6.7 g/dL (6.4-8.2)
[2019-12-03 05:53] LABS: BASO % 0 % (0-3); EOS % 0 % (0-3); HEMATOCRIT 34.6 % (39.0-53.0); HEMOGLOBIN 11.2 g/dL (13.0-17.5); LYMPH # 0.7 x10^3/uL (1.0-4.8); LYMPH % 5 % (24-48); MEAN CORPUSCULAR HEMOGLOBIN 30 pg (25-35); MEAN CORPUSCULAR HGB CONC 33 g/dL (31-37); MEAN CORPUSCULAR VOLUME 92 fL (79-100); MONO # 0.4 x10^3/uL (0.0-1.1); MONO % 3 % (0-9); NEUT # 12.7 x10^3/uL (1.8-7.7); NEUT % 92 % (31-73); PLATELET COUNT 207 x10^3/uL (140-400); RED BLOOD COUNT 3.76 x10^6/uL (4.30-5.70); RED CELL DISTRIBUTION WIDTH 13.4 % (11.5-14.5); WHITE BLOOD COUNT 13.8 x10^3/uL (4.0-11.0)
[2019-12-03] MEDS: STERILE WATER for RESP 1,000 ML BAG. INH PRN ×2 (07:31→16:11)
[2019-12-03] MEDS: ZINC SULFATE 220 MG CAPSULE. PO SCH (07:48)
[2019-12-03] MEDS: ASPIRIN CHEWABLE 81 MG TABLET. PO SCH (07:48)
[2019-12-03] MEDS: FAMOTIDINE 20 MG/2 ML VIAL IVP SCH (07:48)
[2019-12-03] MEDS: SENNOSIDES/DOCUSATE 8.6/50MG TABLET. PO SCH ×2 (07:49→20:09)
[2019-12-03] MEDS: LACTOBACILLUS RHAMNOSUS GG 1 CAPSULE. PO SCH ×2 (07:49→20:09)
[2019-12-03] MEDS: amLODIPine BESYLATE 5 MG TABLET PO SCH (07:49)
[2019-12-03] MEDS: TAMSULOSIN 0.4 MG CAP.ER.24H. PO SCH (07:49)
[2019-12-03] MEDS: CHOLECALCIFEROL (VITAMIN D3) 1,000 UNIT TABLET PO SCH ×2 (07:49→20:16)
[2019-12-03] MEDS: THIAMINE INJ 200 MG in IV DEXTROSE 5% 50 ML IV SCH ×2 (09:14→20:09)
[2019-12-03] MEDS: INSULIN LISPRO 300 UNITS/3 ML VIAL. SQ SCH ×7 (09:16→20:15)
[2019-12-03] MEDS: INSULIN GLARGINE SYRINGE. SQ SCH ×2 (09:16→20:15)
--- NOTE | 2019-12-03 10:43 | PDOC ---
PROGRESS NOTES Date of Service: DATE: 12/03/19 TIME: 10:39 Chief Complaint Chief Complaint COVID 19 infection acute hypoxemic respiratory distress due to the above. Acute renal failure due to vasomotor nephropathy normocytic anemia Diabetes-Type II High Cholesterol Hypertension Severe protein calorie malnutrition FEN - ADA PPX - lovenox FULL CODE Dispo - inpatient History of Present Illness History of Present Illness Mr Olvera is a 69yo M w/ PMHx Diabetes-Type II, High Cholesterol, Hypertension who was in his usual state of health until 2 days prior ot his admission when he was evaluated at [facility] and found to be positive for COVID 19 virus, patient was discharged and given instructions to follow up in the nearest medical center would his symptoms worsen, Today he felt worse and more dyspneic reason why he came to the ER, he initially requiring 1 liter of oxygen 11/28: Febrile 101 3 F overnight. Procalcitonin elevated, INR 1.4, WBC 9.1, Hb 11.9, platelets 189, NA 137, K3.4, BUN 39, CR 2.8, glucose 240. He is short of breath with cough. He is insistent he does not wish for convalescent FFP if his O2 needs continues to increase. Now on 4L NCO2. 11/29: Febrile to 101.5 F overnight. Creatinine increased to 4.1, he still very short of breath worsening cough, increased from 6 L nasal cannula overnight to 15 L nonrebreather facemask. I discussed with pulmonology to transferred out of the ICU. I have asked the patient to reconsider convalesce and FFP and will discuss with his family. 11/30: No acute events reported overnight, case discussed with nursing staff patient in no acute distress no complaints during my visit seems to be tolerating Vapotherm well hopefully he will be able to continue with improving, encourage proning position if tolerated 12/01: No acute events reported overnight, case discussed with nursing staff patient in no acute distress no complaints during my visit, given update patient 's over the phone reassurance has been provided no new complaints seems to be status quo. Encourage more activity as tolerated in prone positioning 12/02: Discussed with nursing staff, no acute events overnight. Breathing well on Vapotherm. Continue ICU monitoring. Vitals Vitals Vital Signs Date Time Temp Pulse Resp B/P (MAP) Pulse Ox O2 Delivery O2 Flow Rate FiO2 12/03/19 10:00 66 34 150/81 (104) 95 Vapotherm 40.0 12/03/19 08:00 97.6 97.6 Physical Exam General: Alert Heart: Regular rate, Normal S1, Normal S2 Abdomen: Normal bowel sounds, Soft Extremities: No clubbing, No cyanosis Skin: No rashes, No breakdown Labs LABS Laboratory Tests Test 12/02/19 11:13 12/02/19 16:49 12/02/19 19:46 12/03/19 05:00 Glucose (Fingerstick) 220 mg/dL (70-99) 182 mg/dL (70-99) 217 mg/dL (70-99) White Blood Count 13.8 x10^3/uL (4.0-11.0) Red Blood Count 3.76 x10^6/uL (4.30-5.70) Hemoglobin 11.2 g/dL (13.0-17.5) Hematocrit 34.6 % (39.0-53.0) Mean Corpuscular Volume 92 fL (79-100) Mean Corpuscular Hemoglobin 30 pg (25-35) Mean Corpuscular Hemoglobin Concent 33 g/dL (31-37) Red Cell Distribution Width 13.4 % (11.5-14.5) Platelet Count 207 x10^3/uL (140-400) Neutrophils (%) (Auto) 92 % (31-73) Lymphocytes (%) (Auto) 5 % (24-48) Monocytes (%) (Auto) 3 % (0-9) Eosinophils (%) (Auto) 0 % (0-3) Basophils (%) (Auto) 0 % (0-3) Neutrophils # (Auto) 12.7 x10^3/uL (1.8-7.7) Lymphocytes # (Auto) 0.7 x10^3/uL (1.0-4.8) Monocytes # (Auto) 0.4 x10^3/uL (0.0-1.1) Eosinophils # (Auto) 0.0 x10^3/uL (0.0-0.7) Basophils # (Auto) 0.0 x10^3/uL (0.0-0.2) Sodium Level 136 mmol/L (136-145) Potassium Level 3.6 mmol/L (3.5-5.1) Chloride Level 98 mmol/L (98-107) Carbon Dioxide Level 28 mmol/L (21-32) Anion Gap 10 (6-14) Blood Urea Nitrogen 69 mg/dL (8-26) Creatinine 3.8 mg/dL (0.7-1.3) Estimated GFR (Cockcroft-Gault) 19.2 BUN/Creatinine Ratio 18 (6-20) Glucose Level 244 mg/dL (70-99) Calcium Level 8.3 mg/dL (8.5-10.1) Total Bilirubin 0.3 mg/dL (0.2-1.0) Aspartate Amino Transf (AST/SGOT) 55 U/L (15-37) Alanine Aminotransferase (ALT/SGPT) 45 U/L (16-63) Alkaline Phosphatase 62 U/L (46-116) Total Protein 6.7 g/dL (6.4-8.2) Albumin 1.8 g/dL (3.4-5.0) Albumin/Globulin Ratio 0.4 (1.0-1.7) Test 12/03/19 07:52 Glucose (Fingerstick) 197 mg/dL (70-99) Review of Systems Review of Systems Shortness of breath. All other systems negative. Assessment and Plan Assessmemt and Plan Problems Medical Problems: (1) ARF (acute renal failure) Status: Acute (2) Fever Status: Acute (3) Hypoxemia Status: Acute (4) Sepsis Status: Acute Comment Review of Relevant I have reviewed the following items bren (where applicable) has been applied. Labs Laboratory Tests Test 12/01/19 11:59 12/01/19 17:10 12/01/19 20:09 12/02/19 05:05 Glucose (Fingerstick) 382 mg/dL (70-99) 461 mg/dL (70-99) 367 mg/dL (70-99) White Blood Count 14.6 x10^3/uL (4.0-11.0) Red Blood Count 3.72 x10^6/uL (4.30-5.70) Hemoglobin 11.1 g/dL (13.0-17.5) Hematocrit 34.0 % (39.0-53.0) Mean Corpuscular Volume 91 fL (79-100) Mean Corpuscular Hemoglobin 30 pg (25-35) Mean Corpuscular Hemoglobin Concent 33 g/dL (31-37) Red Cell Distribution Width 13.1 % (11.5-14.5) Platelet Count 195 x10^3/uL (140-400) Neutrophils (%) (Auto) 89 % (31-73) Lymphocytes (%) (Auto) 7 % (24-48) Monocytes (%) (Auto) 4 % (0-9) Eosinophils (%) (Auto) 0 % (0-3) Basophils (%) (Auto) 0 % (0-3) Neutrophils # (Auto) 12.9 x10^3/uL (1.8-7.7) Lymphocytes # (Auto) 1.1 x10^3/uL (1.0-4.8) Monocytes # (Auto) 0.6 x10^3/uL (0.0-1.1) Eosinophils # (Auto) 0.0 x10^3/uL (0.0-0.7) Basophils # (Auto) 0.0 x10^3/uL (0.0-0.2) Segmented Neutrophils % 83 % (35-66) Band Neutrophils % 7 % (0-9) Lymphocytes % 9 % (24-48) Monocytes % 1 % (0-10) Platelet Estimate Adequate (ADEQUATE) Sodium Level 137 mmol/L (136-145) Potassium Level 3.7 mmol/L (3.5-5.1) Chloride Level 99 mmol/L (98-107) Carbon Dioxide Level 28 mmol/L (21-32) Anion Gap 10 (6-14) Blood Urea Nitrogen 66 mg/dL (8-26) Creatinine 3.6 mg/dL (0.7-1.3) Estimated GFR (Cockcroft-Gault) 20.4 BUN/Creatinine Ratio 18 (6-20) Glucose Level 140 mg/dL (70-99) Calcium Level 7.8 mg/dL (8.5-10.1) Total Bilirubin 0.3 mg/dL (0.2-1.0) Aspartate Amino Transf (AST/SGOT) 33 U/L (15-37) Alanine Aminotransferase (ALT/SGPT) 33 U/L (16-63) Alkaline Phosphatase 55 U/L (46-116) Total Protein 6.6 g/dL (6.4-8.2) Albumin 1.6 g/dL (3.4-5.0) Albumin/Globulin Ratio 0.3 (1.0-1.7) Test 12/02/19 07:45 12/02/19 08:00 12/02/19 11:13 12/02/19 16:49 O2 Saturation 85 % (92-99) Arterial Blood pH 7.44 (7.35-7.45) Arterial Blood pCO2 at Patient Temp 40 mmHg (35-46) Arterial Blood pO2 at Patient Temp 49 mmHg (65-108) Arterial Blood HCO3 26 mmol/L (21-28) Arterial Blood Base Excess 2 mmol/L (-3-3) FiO2 100@40l vapo Glucose (Fingerstick) 131 mg/dL (70-99) 220 mg/dL (70-99) 182 mg/dL (70-99) Test 12/02/19 19:46 12/03/19 05:00 12/03/19 07:52 Glucose (Fingerstick) 217 mg/dL (70-99) 197 mg/dL (70-99) White Blood Count 13.8 x10^3/uL (4.0-11.0) Red Blood Count 3.76 x10^6/uL (4.30-5.70) Hemoglobin 11.2 g/dL (13.0-17.5) Hematocrit 34.6 % (39.0-53.0) Mean Corpuscular Volume 92 fL (79-100) Mean Corpuscular Hemoglobin 30 pg (25-35) Mean Corpuscular Hemoglobin Concent 33 g/dL (31-37) Red Cell Distribution Width 13.4 % (11.5-14.5) Platelet Count 207 x10^3/uL (140-400) Neutrophils (%) (Auto) 92 % (31-73) Lymphocytes (%) (Auto) 5 % (24-48) Monocytes (%) (Auto) 3 % (0-9) Eosinophils (%) (Auto) 0 % (0-3) Basophils (%) (Auto) 0 % (0-3) Neutrophils # (Auto) 12.7 x10^3/uL (1.8-7.7) Lymphocytes # (Auto) 0.7 x10^3/uL (1.0-4.8) Monocytes # (Auto) 0.4 x10^3/uL (0.0-1.1) Eosinophils # (Auto) 0.0 x10^3/uL (0.0-0.7) Basophils # (Auto) 0.0 x10^3/uL (0.0-0.2) Sodium Level 136 mmol/L (136-145) Potassium Level 3.6 mmol/L (3.5-5.1) Chloride Level 98 mmol/L (98-107) Carbon Dioxide Level 28 mmol/L (21-32) Anion Gap 10 (6-14) Blood Urea Nitrogen 69 mg/dL (8-26) Creatinine 3.8 mg/dL (0.7-1.3) Estimated GFR (Cockcroft-Gault) 19.2 BUN/Creatinine Ratio 18 (6-20) Glucose Level 244 mg/dL (70-99) Calcium Level 8.3 mg/dL (8.5-10.1) Total Bilirubin 0.3 mg/dL (0.2-1.0) Aspartate Amino Transf (AST/SGOT) 55 U/L (15-37) Alanine Aminotransferase (ALT/SGPT) 45 U/L (16-63) Alkaline Phosphatase 62 U/L (46-116) Total Protein 6.7 g/dL (6.4-8.2) Albumin 1.8 g/dL (3.4-5.0) Albumin/Globulin Ratio 0.4 (1.0-1.7) Laboratory Tests Test 12/02/19 11:13 12/02/19 16:49 12/02/19 19:46 12/03/19 05:00 Glucose (Fingerstick) 220 mg/dL (70-99) 182 mg/dL (70-99) 217 mg/dL (70-99) White Blood Count 13.8 x10^3/uL (4.0-11.0) Red Blood Count 3.76 x10^6/uL (4.30-5.70) Hemoglobin 11.2 g/dL (13.0-17.5) Hematocrit 34.6 % (39.0-53.0) Mean Corpuscular Volume 92 fL (79-100) Mean Corpuscular Hemoglobin 30 pg (25-35) Mean Corpuscular Hemoglobin Concent 33 g/dL (31-37) Red Cell Distribution Width 13.4 % (11.5-14.5) Platelet Count 207 x10^3/uL (140-400) Neutrophils (%) (Auto) 92 % (31-73) Lymphocytes (%) (Auto) 5 % (24-48) Monocytes (%) (Auto) 3 % (0-9) Eosinophils (%) (Auto) 0 % (0-3) Basophils (%) (Auto) 0 % (0-3) Neutrophils # (Auto) 12.7 x10^3/uL (1.8-7.7) Lymphocytes # (Auto) 0.7 x10^3/uL (1.0-4.8) Monocytes # (Auto) 0.4 x10^3/uL (0.0-1.1) Eosinophils # (Auto) 0.0 x10^3/uL (0.0-0.7) Basophils # (Auto) 0.0 x10^3/uL (0.0-0.2) Sodium Level 136 mmol/L (136-145) Potassium Level 3.6 mmol/L (3.5-5.1) Chloride Level 98 mmol/L (98-107) Carbon Dioxide Level 28 mmol/L (21-32) Anion Gap 10 (6-14) Blood Urea Nitrogen 69 mg/dL (8-26) Creatinine 3.8 mg/dL (0.7-1.3) Estimated GFR (Cockcroft-Gault) 19.2 BUN/Creatinine Ratio 18 (6-20) Glucose Level 244 mg/dL (70-99) Calcium Level 8.3 mg/dL (8.5-10.1) Total Bilirubin 0.3 mg/dL (0.2-1.0) Aspartate Amino Transf (AST/SGOT) 55 U/L (15-37) Alanine Aminotransferase (ALT/SGPT) 45 U/L (16-63) Alkaline Phosphatase 62 U/L (46-116) Total Protein 6.7 g/dL (6.4-8.2) Albumin 1.8 g/dL (3.4-5.0) Albumin/Globulin Ratio 0.4 (1.0-1.7) Test 12/03/19 07:52 Glucose (Fingerstick) 197 mg/dL (70-99) Microbiology 12/01/19 Urine Culture - Final, Complete Medications Current Medications Ondansetron HCl (Zofran) 4 mg 1X ONCE IV Last administered on 11/28/19at 16:25; Start 11/28/19 at 15:30; Stop 11/28/19 at 15:36; Status DC Acetaminophen (Tylenol) 1,000 mg 1X ONCE PO Last administered on 11/28/19at 16:25; Start 11/28/19 at 15:45; Stop 11/28/19 at 16:03; Status DC Acetaminophen (Tylenol) 650 mg PRN Q6HRS PRN PO Headaches, Temp > 101.5' Last administered on 11/30/19at 08:45; Start 11/28/19 at 17:45 Lorazepam (Ativan Inj) 0.5 mg PRN Q6HRS PRN IVP ANXIETY / AGITATION; Start 11/28/19 at 17:45 Ondansetron HCl (Zofran) 4 mg PRN Q6HRS PRN IVP NAUSEA/VOMITING; Start 11/28/19 at 17:45 Famotidine (Pepcid Vial) 20 mg BID IVP Last administered on 12/03/19at 07:48; Start 11/28/19 at 21:00 Info (Icu Electrolyte Protocol) 1 ea DAILY MC ; Start 11/29/19 at 09:00; Stop 11/28/19 at 18:16; Status DC Enoxaparin Sodium (Lovenox 40mg Syringe) 150 mg Q12HR SQ ; Start 11/28/19 at 21:00; Stop 11/28/19 at 18:16; Status DC Sodium Chloride (Normal Saline Flush) 3 ml QSHIFT PRN IV AFTER MEDS AND BLOOD DRAWS; Start 11/28/19 at 17:45 Acetaminophen/ Hydrocodone Bitart (Lortab 5/325) 1 tab PRN Q4HRS PRN PO MILD P AIN, 2ND CHOICE; Start 11/28/19 at 17:45 Morphine Sulfate (Morphine Sulfate) 1 mg PRN Q1HR PRN IV PAIN; Start 11/28/19 at 17:45 Senna/Docusate Sodium (Senna Plus) 1 tab BID PO Last administered on 12/03/19at 07:49; Start 11/28/19 at 21:00 Lactulose (Lactulose) 20 gm PRN Q12HR PRN PO CONSTIPATION; Start 11/28/19 at 17:45 Amlodipine Besylate (Norvasc) 5 mg DAILY PO Last administered on 12/03/19at 07:49; Start 11/29/19 at 09:00 Aspirin (Aspirin Chewable) 81 mg DAILY PO Last administered on 12/03/19at 07:48; Start 11/29/19 at 09:00 Furosemide (Lasix) 20 mg DAILY PO Last administered on 12/01/19at 08:19; Start 11/29/19 at 09:00; Stop 12/01/19 at 12:52; Status DC Glipizide (Glucotrol) 2.5 mg DAILY PO Last administered on 11/30/19at 08:44; Start 11/29/19 at 09:00; Stop 12/01/19 at 08:12; Status DC Acetaminophen/ Hydrocodone Bitart (Lortab 5/325) 1 tab PRN Q6HRS PRN PO PAIN; Start 11/28/19 at 17:45; Status UNV Lisinopril (Prinivil) 40 mg DAILY PO Last administered on 12/01/19at 08:19; Start 11/29/19 at 09:00; Stop 12/01/19 at 12:52; Status DC Tamsulosin HCl (Flomax) 0.4 mg DAILY PO Last administered on 12/03/19at 07:49; Start 11/29/19 at 09:00 Hydrochlorothiazide (Hydrodiuril) 25 mg DAILY PO Last administered on 12/01/19at 08:17; Start 11/29/19 at 09:00; Stop 12/01/19 at 12:52; Status DC Cyclobenzaprine HCl (Flexeril) 10 mg TID PO Last administered on 11/30/19at 22:16; Start 11/28/19 at 21:00; Stop 12/02/19 at 06:46; Status DC Magnesium Sulfate 50 ml @ 25 mls/hr 1X ONCE IV Last administered on 11/28/19at 19:10; Start 11/28/19 at 19:00; Stop 11/28/19 at 20:59; Status DC Zinc Sulfate (Orazinc) 220 mg DAILY PO Last administered on 12/03/19at 07:48; Start 11/29/19 at 09:00 Ascorbic Acid (Vitamin C) 500 mg Q6HRS PO Last administered on 12/03/19at 05:38; Start 11/29/19 at 00:00 Vitamin D (Vitamin D3) 1,000 unit BID PO Last administered on 12/03/19at 07:49; Start 11/28/19 at 21:00 Atorvastatin Calcium (Lipitor) 40 mg QHS PO Last administered on 12/02/19at 21:10; Start 11/28/19 at 21:00 Enoxaparin Sodium (Lovenox 80mg Syringe) 80 mg 1X ONCE SQ Last administered on 11/28/19at 19:10; Start 11/28/19 at 19:00; Stop 11/28/19 at 19:01; Status DC Enoxaparin Sodium (Lovenox 40mg Syringe) 40 mg Q12HR SQ Last administered on 11/29/19at 20:52; Start 11/29/19 at 09:00; Stop 11/30/19 at 10:00; Status DC Thiamine HCl 200 mg/Dextrose 52 ml @ 102 mls/hr Q12HR IV Last administered on 12/03/19at 09:14; Start 11/28/19 at 19:30 Potassium Chloride (Klor-Con) 40 meq 1X ONCE PO Last administered on 11/29/19at 17:15; Start 11/29/19 at 16:45; Stop 11/29/19 at 16:46; Status DC Methylprednisolone Sodium Succinate (SOLU-Medrol 125MG VIAL) 60 mg Q8HRS IV Last administered on 12/03/19at 05:38; Start 11/30/19 at 09:00 Piperacillin Sod/ Tazobactam Sod (Zosyn Per Pharmacy) 1 each PRN DAILY PRN MC SEE COMMENTS; Start 11/30/19 at 08:45 Piperacillin Sod/ Tazobactam Sod 3.375 gm/Sodium Chloride 50 ml @ 100 mls/hr Q6HRS IV Last administered on 12/03/19at 05:39; Start 11/30/19 at 12:00 Heparin Sodium (Porcine) (Heparin Sodium) 5,000 unit Q8HRS SQ Last administered on 12/03/19at 05:39; Start 11/30/19 at 14:00 Sterile Water (WATER for RESP) 1,000 ml CONT PRN INH VIA VAPOTHERM DEVICE Last administered on 12/03/19at 07:31; Start 11/30/19 at 17:30 Insulin Glargine (Lantus Syringe) 20 unit BID SQ Last administered on 12/01/19at 12:30; Start 12/01/19 at 12:30; Stop 12/01/19 at 17:33; Status DC Insulin Human Lispro (HumaLOG) 0-9 UNITS TIDWMEALS SQ Last administered on 12/01/19at 17:33; Start 12/01/19 at 12:30; Stop 12/01/19 at 21:03; Status DC Dextrose (Dextrose 50%-Water Syringe) 12.5 gm PRN Q15MIN PRN IV SEE COMMENTS; Start 12/01/19 at 12:15 Sodium Chloride 1,000 ml @ 75 mls/hr 1X ONCE IV Last administered on 12/01/19at 12:58; Start 12/01/19 at 13:00; Stop 12/02/19 at 02:19; Status DC Insulin Glargine (Lantus Syringe) 30 unit BID SQ Last administered on 12/03/19at 09:16; Start 12/01/19 at 21:00 Insulin Human Lispro (HumaLOG) 10 units TIDWMEALS SQ Last administered on 12/01/19at 17:49; Start 12/01/19 at 17:45; Stop 12/01/19 at 21:04; Status DC Insulin Human Lispro (HumaLOG) 0-9 UNITS QIDACHS SQ Last administered on 12/03/19at 09:16; Start 12/02/19 at 07:30 Insulin Human Lispro (HumaLOG) 15 units TIDWMEALS SQ Last administered on 12/03/19at 09:17; Start 12/02/19 at 08:00 Insulin Human Lispro (HumaLOG) 9 units 1X ONCE SQ Last administered on 12/01/19at 21:16; Start 12/01/19 at 21:30; Stop 12/01/19 at 21:31; Status DC Cyclobenzaprine HCl (Flexeril) 10 mg PRN TID PRN PO MUSCLE SPASMS; Start 12/02/19 at 06:45 Furosemide (Lasix) 20 mg 1X ONCE IVP ; Start 12/02/19 at 10:15; Stop 12/02/19 at 10:47; Status DC Furosemide (Lasix) 40 mg 1X ONCE IVP Last administered on 12/02/19at 11:09; S tart 12/02/19 at 10:45; Stop 12/02/19 at 10:51; Status DC Sodium Chloride 1,000 ml @ 75 mls/hr [id number] IV Last administered on 12/03/19at 03:12; Start 12/02/19 at 14:30 Lactobacillus Rhamnosus (Culturelle) 1 cap BID PO Last administered on 12/03/19at 07:49; Start 12/02/19 at 21:00 Active Scripts Active [place] 5-325 Tablet (Acetaminophen/Hydrocodone Bitart) 1 Each Tablet 1 Tab PO PRN Q6HRS PRN Orphenadrine Citrate 100 Mg Tablet.er 1 Tab PO BID Amlodipine Besylate 5 Mg Tablet 5 Mg PO DAILY Reported Lisinopril 40 Mg Tablet 40 Mg PO DAILY Glipizide 5 Mg Tablet 2.5 Mg PO DAILY Hydrochlorothiazide Tablet (Hydrochlorothiazide) 12.5 Mg Tablet 25 Mg PO DAILY Furosemide 20 Mg Tablet 20 Mg PO DAILY Tamsulosin Hcl 0.4 Mg Cap.er.24h 1 Cap PO DAILY Aspirin 81 Mg Tab.chew 81 Mg PO DAILY Metformin Hcl 500 Mg Tablet 500 Mg PO DAILY Vitals/I & O Vital Sign - Last 24 Hours 12/02/19 12/02/19 12/02/19 12/02/19 11:00 11:58 12:00 12:00 Temp 97.7 97.7 Pulse 64 60 Resp 31 28 B/P (MAP) 138/76 (96) 120/61 (80) Pulse Ox 99 93 90 O2 Delivery vapo therm 40l /100% VAPOTHERM Nasal Cannula vapo therm 40l /100% O2 Flow Rate 40.0 40.0 40.0 40.0 12/02/19 12/02/19 12/02/19 12/02/19 13:00 14:00 15:00 15:37 Pulse 64 60 60 Resp 39 28 26 B/P (MAP) 129/82 (98) 125/64 (84) 131/57 (81) Pulse Ox 98 91 90 91 O2 Delivery vapo therm 40l /100% vapo therm 40l /100% vapo therm 40l /100% VAPOTHERM O2 Flow Rate 40.0 40.0 40.0 40.0 12/02/19 12/02/19 12/02/19 12/02/19 16:00 16:00 17:00 18:00 Temp 98.1 98.1 Pulse 60 61 67 Resp 37 27 25 B/P (MAP) 134/64 (87) 140/77 (98) 112/61 (78) Pulse Ox 90 100 90 O2 Delivery vapo therm 40l /100% Nasal Cannula vapo therm 40l /100% vapo therm 40l /100% O2 Flow Rate 40.0 40.0 40.0 40.0 12/02/19 12/02/19 12/02/19 12/02/19 19:00 19:30 20:00 20:03 Temp 98.3 98.3 Pulse 63 61 Resp 19 22 B/P (MAP) 145/67 (93) 126/70 (88) Pulse Ox 93 91 90 O2 Delivery vapo therm 40l /100% Nasal Cannula vapo therm 40l /100% VAPOTHERM O2 Flow Rate 40.0 40.0 40.0 40.0 12/02/19 12/02/19 12/02/19 12/02/19 21:00 22:00 23:00 23:35 Pulse 63 56 64 Resp 21 28 24 B/P (MAP) 153/82 (105) 166/85 (112) 134/76 (95) Pulse Ox 91 93 97 96 O2 Delivery vapo therm 40l /100% vapo therm 40l /100% vapo therm 40l /100% VAPOTHERM O2 Flow Rate 40.0 40.0 40.0 40.0 12/03/19 12/03/19 12/03/19 12/03/19 00:01 00:01 01:00 02:00 Temp 97.6 97.6 Pulse 53 60 53 Resp 24 30 26 B/P (MAP) 141/82 (101) 151/69 (96) 144/75 (98) Pulse Ox 98 98 98 O2 Delivery vapo therm 40l /100% Nasal Cannula vapo therm 40l /100% vapo therm 40l /100% O2 Flow Rate 40.0 40.0 40.0 40.0 12/03/19 12/03/19 12/03/19 12/03/19 03:00 03:40 04:00 04:00 Temp 97.8 97.8 Pulse 50 51 Resp 22 30 B/P (MAP) 155/79 (104) 147/79 (101) Pulse Ox 95 96 96 O2 Delivery vapo therm 40l /100% VAPOTHERM vapo therm 40l /100% Nasal Cannula O2 Flow Rate 40.0 40.0 40.0 40.0 12/03/19 12/03/19 12/03/19 12/03/19 05:00 06:00 07:00 07:32 Pulse 51 59 52 Resp 26 31 22 B/P (MAP) 141/79 (99) 165/86 (112) 151/75 (100) Pulse Ox 97 91 91 O2 Delivery vapo therm 40l /100% vapo therm 40l /100% Vapotherm VAPOTHERM O2 Flow Rate 40.0 40.0 40.0 40.0 12/03/19 12/03/19 12/03/19 12/03/19 07:49 08:00 08:00 09:00 Temp 97.6 97.6 Pulse 50 58 64 Resp 22 33 B/P (MAP) 151/75 133/64 (87) 155/74 (101) Pulse Ox 92 92 O2 Delivery Nasal Cannula Vapotherm Vapotherm O2 Flow Rate 40.0 40.0 40.0 12/03/19 10:00 Pulse 66 Resp 34 B/P (MAP) 150/81 (104) Pulse Ox 95 O2 Delivery Vapotherm O2 Flow Rate 40.0 Intake and Output 12/02/19 12/02/19 12/03/19 15:00 23:00 07:00 Intake Total 1302 ml 1587 ml 725 ml Output Total 1305 ml 785 ml 850 ml Balance -3 ml 802 ml -125 ml Justicifation of Admission Dx: Justifications for Admission: Justification of Admission Dx: Yes Sepsis: Hypoxemia FRED DALEY MD Dec 03, 2019 10:43
--- NOTE | 2019-12-03 10:57 | PDOC ---
PULMONARY PROGRESS NOTES DATE: 12/03/19 TIME: 10:50 Subjective comfortable on vapotherm, 40 liters and 100% up to chair today, No increased cough No SOA, NO increased cough Vitals Vital Signs Date Time Temp Pulse Resp B/P (MAP) Pulse Ox O2 Delivery O2 Flow Rate FiO2 12/03/19 10:00 66 34 150/81 (104) 95 Vapotherm 40.0 12/03/19 08:00 97.6 97.6 Comments visual exam done OOB to chair no soa, no skin rash no edema General: Alert, No acute distress Labs Laboratory Tests Test 12/01/19 11:59 12/01/19 17:10 12/01/19 20:09 12/02/19 05:05 Glucose (Fingerstick) 382 mg/dL (70-99) 461 mg/dL (70-99) 367 mg/dL (70-99) White Blood Count 14.6 x10^3/uL (4.0-11.0) Red Blood Count 3.72 x10^6/uL (4.30-5.70) Hemoglobin 11.1 g/dL (13.0-17.5) Hematocrit 34.0 % (39.0-53.0) Mean Corpuscular Volume 91 fL (79-100) Mean Corpuscular Hemoglobin 30 pg (25-35) Mean Corpuscular Hemoglobin Concent 33 g/dL (31-37) Red Cell Distribution Width 13.1 % (11.5-14.5) Platelet Count 195 x10^3/uL (140-400) Neutrophils (%) (Auto) 89 % (31-73) Lymphocytes (%) (Auto) 7 % (24-48) Monocytes (%) (Auto) 4 % (0-9) Eosinophils (%) (Auto) 0 % (0-3) Basophils (%) (Auto) 0 % (0-3) Neutrophils # (Auto) 12.9 x10^3/uL (1.8-7.7) Lymphocytes # (Auto) 1.1 x10^3/uL (1.0-4.8) Monocytes # (Auto) 0.6 x10^3/uL (0.0-1.1) Eosinophils # (Auto) 0.0 x10^3/uL (0.0-0.7) Basophils # (Auto) 0.0 x10^3/uL (0.0-0.2) Segmented Neutrophils % 83 % (35-66) Band Neutrophils % 7 % (0-9) Lymphocytes % 9 % (24-48) Monocytes % 1 % (0-10) Platelet Estimate Adequate (ADEQUATE) Sodium Level 137 mmol/L (136-145) Potassium Level 3.7 mmol/L (3.5-5.1) Chloride Level 99 mmol/L (98-107) Carbon Dioxide Level 28 mmol/L (21-32) Anion Gap 10 (6-14) Blood Urea Nitrogen 66 mg/dL (8-26) Creatinine 3.6 mg/dL (0.7-1.3) Estimated GFR (Cockcroft-Gault) 20.4 BUN/Creatinine Ratio 18 (6-20) Glucose Level 140 mg/dL (70-99) Calcium Level 7.8 mg/dL (8.5-10.1) Total Bilirubin 0.3 mg/dL (0.2-1.0) Aspartate Amino Transf (AST/SGOT) 33 U/L (15-37) Alanine Aminotransferase (ALT/SGPT) 33 U/L (16-63) Alkaline Phosphatase 55 U/L (46-116) Total Protein 6.6 g/dL (6.4-8.2) Albumin 1.6 g/dL (3.4-5.0) Albumin/Globulin Ratio 0.3 (1.0-1.7) Test 12/02/19 07:45 12/02/19 08:00 12/02/19 11:13 12/02/19 16:49 O2 Saturation 85 % (92-99) Arterial Blood pH 7.44 (7.35-7.45) Arterial Blood pCO2 at Patient Temp 40 mmHg (35-46) Arterial Blood pO2 at Patient Temp 49 mmHg (65-108) Arterial Blood HCO3 26 mmol/L (21-28) Arterial Blood Base Excess 2 mmol/L (-3-3) FiO2 100@40l vapo Glucose (Fingerstick) 131 mg/dL (70-99) 220 mg/dL (70-99) 182 mg/dL (70-99) Test 12/02/19 19:46 12/03/19 05:00 12/03/19 07:52 Glucose (Fingerstick) 217 mg/dL (70-99) 197 mg/dL (70-99) White Blood Count 13.8 x10^3/uL (4.0-11.0) Red Blood Count 3.76 x10^6/uL (4.30-5.70) Hemoglobin 11.2 g/dL (13.0-17.5) Hematocrit 34.6 % (39.0-53.0) Mean Corpuscular Volume 92 fL (79-100) Mean Corpuscular Hemoglobin 30 pg (25-35) Mean Corpuscular Hemoglobin Concent 33 g/dL (31-37) Red Cell Distribution Width 13.4 % (11.5-14.5) Platelet Count 207 x10^3/uL (140-400) Neutrophils (%) (Auto) 92 % (31-73) Lymphocytes (%) (Auto) 5 % (24-48) Monocytes (%) (Auto) 3 % (0-9) Eosinophils (%) (Auto) 0 % (0-3) Basophils (%) (Auto) 0 % (0-3) Neutrophils # (Auto) 12.7 x10^3/uL (1.8-7.7) Lymphocytes # (Auto) 0.7 x10^3/uL (1.0-4.8) Monocytes # (Auto) 0.4 x10^3/uL (0.0-1.1) Eosinophils # (Auto) 0.0 x10^3/uL (0.0-0.7) Basophils # (Auto) 0.0 x10^3/uL (0.0-0.2) Sodium Level 136 mmol/L (136-145) Potassium Level 3.6 mmol/L (3.5-5.1) Chloride Level 98 mmol/L (98-107) Carbon Dioxide Level 28 mmol/L (21-32) Anion Gap 10 (6-14) Blood Urea Nitrogen 69 mg/dL (8-26) Creatinine 3.8 mg/dL (0.7-1.3) Estimated GFR (Cockcroft-Gault) 19.2 BUN/Creatinine Ratio 18 (6-20) Glucose Level 244 mg/dL (70-99) Calcium Level 8.3 mg/dL (8.5-10.1) Total Bilirubin 0.3 mg/dL (0.2-1.0) Aspartate Amino Transf (AST/SGOT) 55 U/L (15-37) Alanine Aminotransferase (ALT/SGPT) 45 U/L (16-63) Alkaline Phosphatase 62 U/L (46-116) Total Protein 6.7 g/dL (6.4-8.2) Albumin 1.8 g/dL (3.4-5.0) Albumin/Globulin Ratio 0.4 (1.0-1.7) Laboratory Tests Test 12/02/19 11:13 12/02/19 16:49 12/02/19 19:46 12/03/19 05:00 Glucose (Fingerstick) 220 mg/dL (70-99) 182 mg/dL (70-99) 217 mg/dL (70-99) White Blood Count 13.8 x10^3/uL (4.0-11.0) Red Blood Count 3.76 x10^6/uL (4.30-5.70) Hemoglobin 11.2 g/dL (13.0-17.5) Hematocrit 34.6 % (39.0-53.0) Mean Corpuscular Volume 92 fL (79-100) Mean Corpuscular Hemoglobin 30 pg (25-35) Mean Corpuscular Hemoglobin Concent 33 g/dL (31-37) Red Cell Distribution Width 13.4 % (11.5-14.5) Platelet Count 207 x10^3/uL (140-400) Neutrophils (%) (Auto) 92 % (31-73) Lymphocytes (%) (Auto) 5 % (24-48) Monocytes (%) (Auto) 3 % (0-9) Eosinophils (%) (Auto) 0 % (0-3) Basophils (%) (Auto) 0 % (0-3) Neutrophils # (Auto) 12.7 x10^3/uL (1.8-7.7) Lymphocytes # (Auto) 0.7 x10^3/uL (1.0-4.8) Monocytes # (Auto) 0.4 x10^3/uL (0.0-1.1) Eosinophils # (Auto) 0.0 x10^3/uL (0.0-0.7) Basophils # (Auto) 0.0 x10^3/uL (0.0-0.2) Sodium Level 136 mmol/L (136-145) Potassium Level 3.6 mmol/L (3.5-5.1) Chloride Level 98 mmol/L (98-107) Carbon Dioxide Level 28 mmol/L (21-32) Anion Gap 10 (6-14) Blood Urea Nitrogen 69 mg/dL (8-26) Creatinine 3.8 mg/dL (0.7-1.3) Estimated GFR (Cockcroft-Gault) 19.2 BUN/Creatinine Ratio 18 (6-20) Glucose Level 244 mg/dL (70-99) Calcium Level 8.3 mg/dL (8.5-10.1) Total Bilirubin 0.3 mg/dL (0.2-1.0) Aspartate Amino Transf (AST/SGOT) 55 U/L (15-37) Alanine Aminotransferase (ALT/SGPT) 45 U/L (16-63) Alkaline Phosphatase 62 U/L (46-116) Total Protein 6.7 g/dL (6.4-8.2) Albumin 1.8 g/dL (3.4-5.0) Albumin/Globulin Ratio 0.4 (1.0-1.7) Test 12/03/19 07:52 Glucose (Fingerstick) 197 mg/dL (70-99) Medications Active Scripts Medications Dose Route/Sig Max Daily Dose Days Date Category [place] 5-325 Tablet (Acetaminophen/Hydrocodone Bitart) 1 Each Tablet 1 Tab PO PRN Q6HRS PRN 03/20/18 Rx Orphenadrine Citrate 100 Mg Tablet.er 1 Tab PO BID 03/20/18 Rx Amlodipine Besylate 5 Mg Tablet 5 Mg PO DAILY 02/20/17 Rx Lisinopril 40 Mg Tablet 40 Mg PO DAILY 02/18/17 Reported Glipizide 5 Mg Tablet 2.5 Mg PO DAILY 02/18/17 Reported Hydrochlorothiazide Tablet (Hydrochlorothiazide) 12.5 Mg Tablet 25 Mg PO DAILY 02/18/17 Reported Furosemide 20 Mg Tablet 20 Mg PO DAILY 02/18/17 Reported Tamsulosin Hcl 0.4 Mg Cap.er.24h 1 Cap PO DAILY 02/18/17 Reported Aspirin 81 Mg Tab.chew 81 Mg PO DAILY 02/18/17 Reported Metformin Hcl 500 Mg Tablet 500 Mg PO DAILY 02/18/17 Reported Comments CXR Impression: Bilateral perihilar infiltrates. Impression . 1. Acute hypoxic respiratory failure secondary to COVID-19 pneumonia/acute lung injury/early acute respiratory distress syndrome.-- slow improvement 2. Abnormal chest x-ray with bilateral interstitial infiltrates, suggestive of COVID-19 pneumonia. 3. No significant tobacco history. 4. Acute kidney injury on top of CKD with baseline cr of 1.3--- improving 5. Severe protein-calorie malnutrition. 6. Abnormal D-dimer, likely related to COVID pneumonia. Plan . RECOMMENDATIONS: Slow clinical improvement Vapotherm.-- currently 40 Liters and 100%wean Fio2 slowly, will reduce Fi02 to 90% and continue to wean per oxygen saturation, will decrease flow once at 50% Fi02 Continue steroids for COVID-19 pneumonia. Continue DVT prophylaxis high dose and monitor D-dimers. empiric antibiotics. Follow renal recommendations S/P plasma DVT/GI PPX D/W RN and RT [facility] TIME: 30 minutes. ABBY MOORE MD Dec 03, 2019 10:57
[2019-12-03] MEDS: methylPREDNISolone SOD SUCC PF 40 MG/ML VIAL. IV SCH ×2 (14:16→20:10)
--- NOTE | 2019-12-03 14:19 | PDOC ---
Renal-Progress Notes Subjective Notes Notes SITTING UP, FEELING BETTER History of Present Illness Hx of present illness STABLE Vitals Vitals Vital Signs Date Time Temp Pulse Resp B/P (MAP) Pulse Ox O2 Delivery O2 Flow Rate FiO2 12/03/19 13:00 97.8 52 24 152/75 (100) 97 Vapotherm 40.0 97.8 Weight Weight [ ] I.O. Intake and Output Intake and Output 12/03/19 07:00 Intake Total 3614 ml Output Total 2940 ml Balance 674 ml Intake Oral 2310 ml IV Total 1304 ml Output Urine Total 2940 ml Labs Labs Laboratory Tests Test 12/02/19 16:49 12/02/19 19:46 12/03/19 05:00 12/03/19 07:52 Glucose (Fingerstick) 182 mg/dL (70-99) 217 mg/dL (70-99) 197 mg/dL (70-99) White Blood Count 13.8 x10^3/uL (4.0-11.0) Red Blood Count 3.76 x10^6/uL (4.30-5.70) Hemoglobin 11.2 g/dL (13.0-17.5) Hematocrit 34.6 % (39.0-53.0) Mean Corpuscular Volume 92 fL (79-100) Mean Corpuscular Hemoglobin 30 pg (25-35) Mean Corpuscular Hemoglobin Concent 33 g/dL (31-37) Red Cell Distribution Width 13.4 % (11.5-14.5) Platelet Count 207 x10^3/uL (140-400) Neutrophils (%) (Auto) 92 % (31-73) Lymphocytes (%) (Auto) 5 % (24-48) Monocytes (%) (Auto) 3 % (0-9) Eosinophils (%) (Auto) 0 % (0-3) Basophils (%) (Auto) 0 % (0-3) Neutrophils # (Auto) 12.7 x10^3/uL (1.8-7.7) Lymphocytes # (Auto) 0.7 x10^3/uL (1.0-4.8) Monocytes # (Auto) 0.4 x10^3/uL (0.0-1.1) Eosinophils # (Auto) 0.0 x10^3/uL (0.0-0.7) Basophils # (Auto) 0.0 x10^3/uL (0.0-0.2) Sodium Level 136 mmol/L (136-145) Potassium Level 3.6 mmol/L (3.5-5.1) Chloride Level 98 mmol/L (98-107) Carbon Dioxide Level 28 mmol/L (21-32) Anion Gap 10 (6-14) Blood Urea Nitrogen 69 mg/dL (8-26) Creatinine 3.8 mg/dL (0.7-1.3) Estimated GFR (Cockcroft-Gault) 19.2 BUN/Creatinine Ratio 18 (6-20) Glucose Level 244 mg/dL (70-99) Calcium Level 8.3 mg/dL (8.5-10.1) Ferritin 782 ng/mL (26-388) Total Bilirubin 0.3 mg/dL (0.2-1.0) Aspartate Amino Transf (AST/SGOT) 55 U/L (15-37) Alanine Aminotransferase (ALT/SGPT) 45 U/L (16-63) Alkaline Phosphatase 62 U/L (46-116) Total Protein 6.7 g/dL (6.4-8.2) Albumin 1.8 g/dL (3.4-5.0) Albumin/Globulin Ratio 0.4 (1.0-1.7) Test 12/03/19 13:10 Glucose (Fingerstick) 236 mg/dL (70-99) Micro Micro Microbiology 12/01/19 Urine Culture - Final, Complete Review of Systems Constitutional: yes: weakness, alert, oriented Ears/Nose/Throat: Yes: no symptom reported Eyes: Yes: no symptom reported Pulmonary: Yes dyspnea Cardiovascular: Yes edema Gastrointestional: Yes: no symptom reported Genitourinary: Yes: no symptom reported Musculoskeletal: Yes: muscle stiffness Skin: Yes no symptom reported Psychiatric/Neurological: Yes: no symptom reported Endocrine: Yes: no symptom reported Physical Exam General Appearance: no apparent distress, obese Skin: warm Respiratory: decreased breath sounds Heart: S1S2, RRR Abdomen: soft, bowel sounds present Genitourinary: bladder flat, hill catheter Extremities: pulses present, edema Neurology: alert, oriented, follow commands Musculoskeletal: Osteoarthritis Assessment Assessment IMP [id number] OF 3.8 CKD STAGE 3 WITH CR OF 1.3 COVID 19 PNEUMONIA ACUTE HYPOXIC RESP FAILURE MORBID OBESITY PROTEIN CALORIE MALNUTRITION HEMATURIA [place] VS COVID 19 PLAN CONT TRIAL OF IVF'S VAPOTHERM MAINTAIN ADEQUATE MAP STOPPED PRESTON-I STOPPED THIAZIDE AND LASIX MAY STILL NEED DIALYSIS PT SNOW STATES HE IS AGREEABLE IF HD NEEDED D/W DR MOORE WILL FOLLOW [facility] TIME: 30 minutes. ANETA CANO MD Dec 03, 2019 14:19
--- NOTE | 2019-12-03 15:12 | NUR ---
SS following up with discharge planning. SS reviewed pt chart and discussed with pt RN. Pt on Vapotherm. COVID19 positive. Pt on IV Zosyn. SS will continue to follow for discharge planning.
[2019-12-03] MEDS: ATORVASTATIN CALCIUM 40 MG TABLET. PO SCH (20:09)
[2019-12-04] VITALS (24 sets, daily range): BP systolic 124–191; BP diastolic 62–88
[2019-12-04] MEDS: ASCORBIC ACID 500 MG TABLET PO SCH ×4 (00:18→21:47)
[2019-12-04] MEDS: PIPERACILLIN/TAZOBACTAM 3.375 GM in IV NORMAL SALINE 50ML 50 ML IV SCH ×4 (00:19→17:59)
[2019-12-04] MEDS: hydrALAZINE 20 MG/ML VIAL. IVP PRN ×2 (00:34→05:58)
[2019-12-04] MEDS: methylPREDNISolone SOD SUCC PF 40 MG/ML VIAL. IV SCH ×3 (05:36→21:54)
[2019-12-04] MEDS: HEPARIN for SUB-Q USE 5,000 UNIT/ML VIAL. SQ SCH ×3 (05:37→21:55)
[2019-12-04 07:40] LABS: BASO % 0 % (0-3); EOS % 0 % (0-3); HEMATOCRIT 36.9 % (39.0-53.0); HEMOGLOBIN 11.8 g/dL (13.0-17.5); LYMPH # 0.6 x10^3/uL (1.0-4.8); LYMPH % 5 % (24-48); MEAN CORPUSCULAR HEMOGLOBIN 30 pg (25-35); MEAN CORPUSCULAR HGB CONC 32 g/dL (31-37); MEAN CORPUSCULAR VOLUME 92 fL (79-100); MONO # 0.6 x10^3/uL (0.0-1.1); MONO % 5 % (0-9); NEUT # 10.8 x10^3/uL (1.8-7.7); NEUT % 90 % (31-73); PLATELET COUNT 204 x10^3/uL (140-400); RED CELL DISTRIBUTION WIDTH 13.5 % (11.5-14.5); WHITE BLOOD COUNT 12.1 x10^3/uL (4.0-11.0)
[2019-12-04] MEDS: CHOLECALCIFEROL (VITAMIN D3) 1,000 UNIT TABLET PO SCH ×2 (08:33→21:47)
[2019-12-04] MEDS: ZINC SULFATE 220 MG CAPSULE. PO SCH (08:33)
[2019-12-04] MEDS: TAMSULOSIN 0.4 MG CAP.ER.24H. PO SCH (08:33)
[2019-12-04] MEDS: ASPIRIN CHEWABLE 81 MG TABLET. PO SCH (08:33)
[2019-12-04] MEDS: SENNOSIDES/DOCUSATE 8.6/50MG TABLET. PO SCH ×2 (08:33→21:47)
[2019-12-04] MEDS: LACTOBACILLUS RHAMNOSUS GG 1 CAPSULE. PO SCH ×2 (08:33→21:48)
[2019-12-04] MEDS: amLODIPine BESYLATE 10 MG TABLET PO SCH (08:33)
[2019-12-04] MEDS: FAMOTIDINE 20 MG/2 ML VIAL IVP SCH (08:34)
[2019-12-04] MEDS: INSULIN LISPRO 300 UNITS/3 ML VIAL. SQ SCH ×7 (08:35→21:53)
[2019-12-04] MEDS: THIAMINE INJ 200 MG in IV DEXTROSE 5% 50 ML IV SCH (09:23)
[2019-12-04] MEDS: INSULIN GLARGINE SYRINGE. SQ SCH ×2 (09:23→21:52)
[2019-12-04 09:26] LABS: ALBUMIN 1.8 g/dL (3.4-5.0); ALBUMIN/GLOBULIN RATIO 0.4 (1.0-1.7); CALCIUM 8.5 mg/dL (8.5-10.1); CREATININE 2.8 mg/dL (0.7-1.3); GFR 27.3; POTASSIUM 3.5 mmol/L (3.5-5.1); TOTAL BILIRUBIN 0.4 mg/dL (0.2-1.0); TOTAL PROTEIN 6.9 g/dL (6.4-8.2)
--- NOTE | 2019-12-04 10:36 | PDOC ---
PROGRESS NOTES Date of Service: DATE: 12/04/19 TIME: 10:34 Chief Complaint Chief Complaint COVID 19 infection acute hypoxemic respiratory distress due to the above. Acute renal failure due to vasomotor nephropathy normocytic anemia Diabetes-Type II High Cholesterol Hypertension Severe protein calorie malnutrition FEN - ADA PPX - lovenox FULL CODE Dispo - inpatient History of Present Illness History of Present Illness Mr Olvera is a 69yo M w/ PMHx Diabetes-Type II, High Cholesterol, Hypertension who was in his usual state of health until 2 days prior ot his admission when he was evaluated at [facility] and found to be positive for COVID 19 virus, patient was discharged and given instructions to follow up in the nearest medical center would his symptoms worsen, Today he felt worse and more dyspneic reason why he came to the ER, he initially requiring 1 liter of oxygen 11/28: Febrile 101 3 F overnight. Procalcitonin elevated, INR 1.4, WBC 9.1, Hb 11.9, platelets 189, NA 137, K3.4, BUN 39, CR 2.8, glucose 240. He is short of breath with cough. He is insistent he does not wish for convalescent FFP if his O2 needs continues to increase. Now on 4L NCO2. 11/29: Febrile to 101.5 F overnight. Creatinine increased to 4.1, he still very short of breath worsening cough, increased from 6 L nasal cannula overnight to 15 L nonrebreather facemask. I discussed with pulmonology to transferred out of the ICU. I have asked the patient to reconsider convalesce and FFP and will discuss with his family. 11/30: No acute events reported overnight, case discussed with nursing staff patient in no acute distress no complaints during my visit seems to be tolerating Vapotherm well hopefully he will be able to continue with improving, encourage proning position if tolerated 12/01: No acute events reported overnight, case discussed with nursing staff patient in no acute distress no complaints during my visit, given update patient 's over the phone reassurance has been provided no new complaints seems to be status quo. Encourage more activity as tolerated in prone positioning 12/02: Discussed with nursing staff, no acute events overnight. Breathing well on Vapotherm. Continue ICU monitoring. 12/03: Patient with O2 desaturation overnight. Breathing more comfortably upright position. Currently breathing on 40 L of high flow nasal cannula with 100% O2 saturation Vitals Vitals Vital Signs Date Time Temp Pulse Resp B/P (MAP) Pulse Ox O2 Delivery O2 Flow Rate FiO2 12/04/19 09:00 76 19 154/62 (92) 92 vapotherm 40.0 12/04/19 08:00 97.7 97.7 Physical Exam General: Alert Heart: Regular rate, Normal S1, Normal S2 Abdomen: Normal bowel sounds, Soft Extremities: No clubbing, No cyanosis Skin: No rashes, No breakdown Labs LABS Laboratory Tests Test 12/03/19 13:10 12/03/19 16:55 12/03/19 19:42 12/04/19 07:15 Glucose (Fingerstick) 236 mg/dL (70-99) 298 mg/dL (70-99) 294 mg/dL (70-99) White Blood Count 12.1 x10^3/uL (4.0-11.0) Red Blood Count 4.00 x10^6/uL (4.30-5.70) Hemoglobin 11.8 g/dL (13.0-17.5) Hematocrit 36.9 % (39.0-53.0) Mean Corpuscular Volume 92 fL (79-100) Mean Corpuscular Hemoglobin 30 pg (25-35) Mean Corpuscular Hemoglobin Concent 32 g/dL (31-37) Red Cell Distribution Width 13.5 % (11.5-14.5) Platelet Count 204 x10^3/uL (140-400) Neutrophils (%) (Auto) 90 % (31-73) Lymphocytes (%) (Auto) 5 % (24-48) Monocytes (%) (Auto) 5 % (0-9) Eosinophils (%) (Auto) 0 % (0-3) Basophils (%) (Auto) 0 % (0-3) Neutrophils # (Auto) 10.8 x10^3/uL (1.8-7.7) Lymphocytes # (Auto) 0.6 x10^3/uL (1.0-4.8) Monocytes # (Auto) 0.6 x10^3/uL (0.0-1.1) Eosinophils # (Auto) 0.0 x10^3/uL (0.0-0.7) Basophils # (Auto) 0.0 x10^3/uL (0.0-0.2) Sodium Level 141 mmol/L (136-145) Potassium Level 3.5 mmol/L (3.5-5.1) Chloride Level 103 mmol/L (98-107) Carbon Dioxide Level 30 mmol/L (21-32) Anion Gap 8 (6-14) Blood Urea Nitrogen 62 mg/dL (8-26) Creatinine 2.8 mg/dL (0.7-1.3) Estimated GFR (Cockcroft-Gault) 27.3 BUN/Creatinine Ratio 22 (6-20) Glucose Level 185 mg/dL (70-99) Calcium Level 8.5 mg/dL (8.5-10.1) Total Bilirubin 0.4 mg/dL (0.2-1.0) Aspartate Amino Transf (AST/SGOT) 69 U/L (15-37) Alanine Aminotransferase (ALT/SGPT) 78 U/L (16-63) Alkaline Phosphatase 70 U/L (46-116) C-Reactive Protein, Quantitative 41.0 mg/L (0-3.3) Total Protein 6.9 g/dL (6.4-8.2) Albumin 1.8 g/dL (3.4-5.0) Albumin/Globulin Ratio 0.4 (1.0-1.7) Procalcitonin 0.16 ng/mL (0.00-0.10) Review of Systems Review of Systems Unable to obtain due to clinical condition Assessment and Plan Assessmemt and Plan Problems Medical Problems: (1) ARF (acute renal failure) Status: Acute (2) Fever Status: Acute (3) Hypoxemia Status: Acute (4) Sepsis Status: Acute Comment Review of Relevant I have reviewed the following items bren (where applicable) has been applied. Labs Laboratory Tests Test 12/02/19 11:13 12/02/19 16:49 12/02/19 19:46 12/03/19 05:00 Glucose (Fingerstick) 220 mg/dL (70-99) 182 mg/dL (70-99) 217 mg/dL (70-99) White Blood Count 13.8 x10^3/uL (4.0-11.0) Red Blood Count 3.76 x10^6/uL (4.30-5.70) Hemoglobin 11.2 g/dL (13.0-17.5) Hematocrit 34.6 % (39.0-53.0) Mean Corpuscular Volume 92 fL (79-100) Mean Corpuscular Hemoglobin 30 pg (25-35) Mean Corpuscular Hemoglobin Concent 33 g/dL (31-37) Red Cell Distribution Width 13.4 % (11.5-14.5) Platelet Count 207 x10^3/uL (140-400) Neutrophils (%) (Auto) 92 % (31-73) Lymphocytes (%) (Auto) 5 % (24-48) Monocytes (%) (Auto) 3 % (0-9) Eosinophils (%) (Auto) 0 % (0-3) Basophils (%) (Auto) 0 % (0-3) Neutrophils # (Auto) 12.7 x10^3/uL (1.8-7.7) Lymphocytes # (Auto) 0.7 x10^3/uL (1.0-4.8) Monocytes # (Auto) 0.4 x10^3/uL (0.0-1.1) Eosinophils # (Auto) 0.0 x10^3/uL (0.0-0.7) Basophils # (Auto) 0.0 x10^3/uL (0.0-0.2) Sodium Level 136 mmol/L (136-145) Potassium Level 3.6 mmol/L (3.5-5.1) Chloride Level 98 mmol/L (98-107) Carbon Dioxide Level 28 mmol/L (21-32) Anion Gap 10 (6-14) Blood Urea Nitrogen 69 mg/dL (8-26) Creatinine 3.8 mg/dL (0.7-1.3) Estimated GFR (Cockcroft-Gault) 19.2 BUN/Creatinine Ratio 18 (6-20) Glucose Level 244 mg/dL (70-99) Calcium Level 8.3 mg/dL (8.5-10.1) Ferritin 782 ng/mL (26-388) Total Bilirubin 0.3 mg/dL (0.2-1.0) Aspartate Amino Transf (AST/SGOT) 55 U/L (15-37) Alanine Aminotransferase (ALT/SGPT) 45 U/L (16-63) Alkaline Phosphatase 62 U/L (46-116) Total Protein 6.7 g/dL (6.4-8.2) Albumin 1.8 g/dL (3.4-5.0) Albumin/Globulin Ratio 0.4 (1.0-1.7) Test 12/03/19 07:52 12/03/19 13:10 12/03/19 16:55 12/03/19 19:42 Glucose (Fingerstick) 197 mg/dL (70-99) 236 mg/dL (70-99) 298 mg/dL (70-99) 294 mg/dL (70-99) Test 12/04/19 07:15 White Blood Count 12.1 x10^3/uL (4.0-11.0) Red Blood Count 4.00 x10^6/uL (4.30-5.70) Hemoglobin 11.8 g/dL (13.0-17.5) Hematocrit 36.9 % (39.0-53.0) Mean Corpuscular Volume 92 fL (79-100) Mean Corpuscular Hemoglobin 30 pg (25-35) Mean Corpuscular Hemoglobin Concent 32 g/dL (31-37) Red Cell Distribution Width 13.5 % (11.5-14.5) Platelet Count 204 x10^3/uL (140-400) Neutrophils (%) (Auto) 90 % (31-73) Lymphocytes (%) (Auto) 5 % (24-48) Monocytes (%) (Auto) 5 % (0-9) Eosinophils (%) (Auto) 0 % (0-3) Basophils (%) (Auto) 0 % (0-3) Neutrophils # (Auto) 10.8 x10^3/uL (1.8-7.7) Lymphocytes # (Auto) 0.6 x10^3/uL (1.0-4.8) Monocytes # (Auto) 0.6 x10^3/uL (0.0-1.1) Eosinophils # (Auto) 0.0 x10^3/uL (0.0-0.7) Basophils # (Auto) 0.0 x10^3/uL (0.0-0.2) Sodium Level 141 mmol/L (136-145) Potassium Level 3.5 mmol/L (3.5-5.1) Chloride Level 103 mmol/L (98-107) Carbon Dioxide Level 30 mmol/L (21-32) Anion Gap 8 (6-14) Blood Urea Nitrogen 62 mg/dL (8-26) Creatinine 2.8 mg/dL (0.7-1.3) Estimated GFR (Cockcroft-Gault) 27.3 BUN/Creatinine Ratio 22 (6-20) Glucose Level 185 mg/dL (70-99) Calcium Level 8.5 mg/dL (8.5-10.1) Total Bilirubin 0.4 mg/dL (0.2-1.0) Aspartate Amino Transf (AST/SGOT) 69 U/L (15-37) Alanine Aminotransferase (ALT/SGPT) 78 U/L (16-63) Alkaline Phosphatase 70 U/L (46-116) C-Reactive Protein, Quantitative 41.0 mg/L (0-3.3) Total Protein 6.9 g/dL (6.4-8.2) Albumin 1.8 g/dL (3.4-5.0) Albumin/Globulin Ratio 0.4 (1.0-1.7) Procalcitonin 0.16 ng/mL (0.00-0.10) Laboratory Tests Test 12/03/19 13:10 12/03/19 16:55 12/03/19 19:42 12/04/19 07:15 Glucose (Fingerstick) 236 mg/dL (70-99) 298 mg/dL (70-99) 294 mg/dL (70-99) White Blood Count 12.1 x10^3/uL (4.0-11.0) Red Blood Count 4.00 x10^6/uL (4.30-5.70) Hemoglobin 11.8 g/dL (13.0-17.5) Hematocrit 36.9 % (39.0-53.0) Mean Corpuscular Volume 92 fL (79-100) Mean Corpuscular Hemoglobin 30 pg (25-35) Mean Corpuscular Hemoglobin Concent 32 g/dL (31-37) Red Cell Distribution Width 13.5 % (11.5-14.5) Platelet Count 204 x10^3/uL (140-400) Neutrophils (%) (Auto) 90 % (31-73) Lymphocytes (%) (Auto) 5 % (24-48) Monocytes (%) (Auto) 5 % (0-9) Eosinophils (%) (Auto) 0 % (0-3) Basophils (%) (Auto) 0 % (0-3) Neutrophils # (Auto) 10.8 x10^3/uL (1.8-7.7) Lymphocytes # (Auto) 0.6 x10^3/uL (1.0-4.8) Monocytes # (Auto) 0.6 x10^3/uL (0.0-1.1) Eosinophils # (Auto) 0.0 x10^3/uL (0.0-0.7) Basophils # (Auto) 0.0 x10^3/uL (0.0-0.2) Sodium Level 141 mmol/L (136-145) Potassium Level 3.5 mmol/L (3.5-5.1) Chloride Level 103 mmol/L (98-107) Carbon Dioxide Level 30 mmol/L (21-32) Anion Gap 8 (6-14) Blood Urea Nitrogen 62 mg/dL (8-26) Creatinine 2.8 mg/dL (0.7-1.3) Estimated GFR (Cockcroft-Gault) 27.3 BUN/Creatinine Ratio 22 (6-20) Glucose Level 185 mg/dL (70-99) Calcium Level 8.5 mg/dL (8.5-10.1) Total Bilirubin 0.4 mg/dL (0.2-1.0) Aspartate Amino Transf (AST/SGOT) 69 U/L (15-37) Alanine Aminotransferase (ALT/SGPT) 78 U/L (16-63) Alkaline Phosphatase 70 U/L (46-116) C-Reactive Protein, Quantitative 41.0 mg/L (0-3.3) Total Protein 6.9 g/dL (6.4-8.2) Albumin 1.8 g/dL (3.4-5.0) Albumin/Globulin Ratio 0.4 (1.0-1.7) Procalcitonin 0.16 ng/mL (0.00-0.10) Microbiology 12/01/19 Urine Culture - Final, Complete Medications Current Medications Ondansetron HCl (Zofran) 4 mg 1X ONCE IV Last administered on 11/28/19at 16:25; Start 11/28/19 at 15:30; Stop 11/28/19 at 15:36; Status DC Acetaminophen (Tylenol) 1,000 mg 1X ONCE PO Last administered on 11/28/19at 16:25; Start 11/28/19 at 15:45; Stop 11/28/19 at 16:03; Status DC Acetaminophen (Tylenol) 650 mg PRN Q6HRS PRN PO Headaches, Temp > 101.5' Last administered on 11/30/19at 08:45; Start 11/28/19 at 17:45 Lorazepam (Ativan Inj) 0.5 mg PRN Q6HRS PRN IVP ANXIETY / AGITATION; Start 11/28/19 at 17:45 Ondansetron HCl (Zofran) 4 mg PRN Q6HRS PRN IVP NAUSEA/VOMITING; Start 11/28/19 at 17:45 Famotidine (Pepcid Vial) 20 mg BID IVP Last administered on 12/03/19at 07:48; Start 11/28/19 at 21:00; Stop 12/03/19 at 15:24; Status DC Info (Icu Electrolyte Protocol) 1 ea DAILY MC ; Start 11/29/19 at 09:00; Stop 11/28/19 at 18:16; Status DC Enoxaparin Sodium (Lovenox 40mg Syringe) 150 mg Q12HR SQ ; Start 11/28/19 at 21:00; Stop 11/28/19 at 18:16; Status DC Sodium Chloride (Normal Saline Flush) 3 ml QSHIFT PRN IV AFTER MEDS AND BLOOD DRAWS; Start 11/28/19 at 17:45 Acetaminophen/ Hydrocodone Bitart (Lortab 5/325) 1 tab PRN Q4HRS PRN PO MILD PAIN, 2ND CHOICE; Start 11/28/19 at 17:45 Morphine Sulfate (Morphine Sulfate) 1 mg PRN Q1HR PRN IV PAIN; Start 11/28/19 at 17:45 Senna/Docusate Sodium (Senna Plus) 1 tab BID PO Last administered on 12/04/19at 08:33; Start 11/28/19 at 21:00 Lactulose (Lactulose) 20 gm PRN Q12HR PRN PO CONSTIPATION; Start 11/28/19 at 17:45 Amlodipine Besylate (Norvasc) 5 mg DAILY PO Last administered on 12/03/19at 07:49; Start 11/29/19 at 09:00; Stop 12/04/19 at 00:25; Status DC Aspirin (Aspirin Chewable) 81 mg DAILY PO Last administered on 12/04/19 08:33; Start 11/29/19 at 09:00 Furosemide (Lasix) 20 mg DAILY PO Last administered on 12/01/19at 08:19; Start 11/29/19 at 09:00; Stop 12/01/19 at 12:52; Status DC Glipizide (Glucotrol) 2.5 mg DAILY PO Last administered on 11/30/19at 08:44; Start 11/29/19 at 09:00; Stop 12/01/19 at 08:12; Status DC Acetaminophen/ Hydrocodone Bitart (Lortab 5/325) 1 tab PRN Q6HRS PRN PO PAIN; Start 11/28/19 at 17:45; Status UNV Lisinopril (Prinivil) 40 mg DAILY PO Last administered on 12/01/19at 08:19; Start 11/29/19 at 09:00; Stop 12/01/19 at 12:52; Status DC Tamsulosin HCl (Flomax) 0.4 mg DAILY PO Last administered on 12/04/19 08:33; Start 11/29/19 at 09:00 Hydrochlorothiazide (Hydrodiuril) 25 mg DAILY PO Last administered on 12/01/19 08:17; Start 11/29/19 at 09:00; Stop 12/01/19 at 12:52; Status DC Cyclobenzaprine HCl (Flexeril) 10 mg TID PO Last administered on 11/30/19at 22:16; Start 11/28/19 at 21:00; Stop 12/02/19 at 06:46; Status DC Magnesium Sulfate 50 ml @ 25 mls/hr 1X ONCE IV Last administered on 11/28/19at 19:10; Start 11/28/19 at 19:00; Stop 11/28/19 at 20:59; Status DC Zinc Sulfate (Orazinc) 220 mg DAILY PO Last administered on 12/04/19at 08:33; Start 11/29/19 at 09:00 Ascorbic Acid (Vitamin C) 500 mg Q6HRS PO Last administered on 12/04/19at 05:36; Start 11/29/19 at 00:00 Vitamin D (Vitamin D3) 1,000 unit BID PO Last administered on 12/04/19at 08:33; Start 11/28/19 at 21:00 Atorvastatin Calcium (Lipitor) 40 mg QHS PO Last administered on 12/03/19at 20:09; Start 11/28/19 at 21:00 Enoxaparin Sodium (Lovenox 80mg Syringe) 80 mg 1X ONCE SQ Last administered on 11/28/19at 19:10; Start 11/28/19 at 19:00; Stop 11/28/19 at 19:01; Status DC Enoxaparin Sodium (Lovenox 40mg Syringe) 40 mg Q12HR SQ Last administered on 11/29/19at 20:52; Start 11/29/19 at 09:00; Stop 11/30/19 at 10:00; Status DC Thiamine HCl 200 mg/Dextrose 52 ml @ 102 mls/hr Q12HR IV Last administered on 12/04/19at 09:23; Start 11/28/19 at 19:30 Potassium Chloride (Klor-Con) 40 meq 1X ONCE PO Last administered on 11/29/19at 17:15; Start 11/29/19 at 16:45; Stop 11/29/19 at 16:46; Status DC Methylprednisolone Sodium Succinate (SOLU-Medrol 125MG VIAL) 60 mg Q8HRS IV Last administered on 12/03/19at 05:38; Start 11/30/19 at 09:00; Stop 12/03/19 at 10:50; Status DC Piperacillin Sod/ Tazobactam Sod (Zosyn Per Pharmacy) 1 each PRN DAILY PRN MC SEE COMMENTS; Start 11/30/19 at 08:45 Piperacillin Sod/ Tazobactam Sod 3.375 gm/Sodium Chloride 50 ml @ 100 mls/hr Q6HRS IV Last administered on 12/04/19at 05:36; Start 11/30/19 at 12:00 Heparin Sodium (Porcine) (Heparin Sodium) 5,000 unit Q8HRS SQ Last administered on 12/04/19at 05:37; Start 11/30/19 at 14:00 Sterile Water (WATER for RESP) 1,000 ml CONT PRN INH VIA VAPOTHERM DEVICE Last administered on 12/03/19at 16:11; Start 11/30/19 at 17:30 Insulin Glargine (Lantus Syringe) 20 unit BID SQ Last administered on 12/01/19at 12:30; Start 12/01/19 at 12:30; Stop 12/01/19 at 17:33; Status DC Insulin Human Lispro (HumaLOG) 0-9 UNITS TIDWMEALS SQ Last administered on 12/01/19at 17:33; Start 12/01/19 at 12:30; Stop 12/01/19 at 21:03; Status DC Dextrose (Dextrose 50%-Water Syringe) 12.5 gm PRN Q15MIN PRN IV SEE COMMENTS; Start 12/01/19 at 12:15 Sodium Chloride 1,000 ml @ 75 mls/hr 1X ONCE IV Last administered on 12/01/19at 12:58; Start 12/01/19 at 13:00; Stop 12/02/19 at 02:19; Status DC Insulin Glargine (Lantus Syringe) 30 unit BID SQ Last administered on 12/04/19at 09:23; Start 12/01/19 at 21:00 Insulin Human Lispro (HumaLOG) 10 units TIDWMEALS SQ Last administered on 12/01/19at 17:49; Start 12/01/19 at 17:45; Stop 12/01/19 at 21:04; Status DC Insulin Human Lispro (HumaLOG) 0-9 UNITS QIDACHS SQ Last administered on 12/04/19at 08:35; Start 12/02/19 at 07:30 Insulin Human Lispro (HumaLOG) 15 units TIDWMEALS SQ Last administered on 12/04/19at 08:35; Start 12/02/19 at 08:00 Insulin Human Lispro (HumaLOG) 9 units 1X ONCE SQ Last administered on 12/01/19at 21:16; Start 12/01/19 at 21:30; Stop 12/01/19 at 21:31; Status DC Cyclobenzaprine HCl (Flexeril) 10 mg PRN TID PRN PO MUSCLE SPASMS; Start 12/02/19 at 06:45 Furosemide (Lasix) 20 mg 1X ONCE IVP ; Start 12/02/19 at 10:15; Stop 12/02/19 at 10:47; Status DC Furosemide (Lasix) 40 mg 1X ONCE IVP Last administered on 12/02/19at 11:09; Start 12/02/19 at 10:45; Stop 12/02/19 at 10:51; Status DC Sodium Chloride 1,000 ml @ 75 mls/hr [id number] IV Last administered on 12/03/19at 17:16; Start 12/02/19 at 14:30 Lactobacillus Rhamnosus (Culturelle) 1 cap BID PO Last administered on 12/04/19at 08:33; Start 12/02/19 at 21:00 Methylprednisolone Sodium Succinate (SOLU-Medrol 40MG VIAL) 40 mg Q8HRS IV Last administered on 12/04/19at 05:36; Start 12/03/19 at 14:00 Famotidine (Pepcid Vial) 20 mg DAILY IVP Last administered on 12/04/19at 08:34; Start 12/04/19 at 09:00 Amlodipine Besylate (Norvasc) 10 mg DAILY PO Last administered on 12/04/19at 08:33; Start 12/04/19 at 09:00 Hydralazine HCl (Apresoline Inj) 10 mg PRN Q15MIN PRN IVP ELEVATED BP, SEE COMMENTS Last administered on 12/04/19at 05:58; Start 12/04/19 at 00:30 Active Scripts Active [place] 5-325 Tablet (Acetaminophen/Hydrocodone Bitart) 1 Each Tablet 1 Tab PO PRN Q6HRS PRN Orphenadrine Citrate 100 Mg Tablet.er 1 Tab PO BID Amlodipine Besylate 5 Mg Tablet 5 Mg PO DAILY Reported Lisinopril 40 Mg Tablet 40 Mg PO DAILY Glipizide 5 Mg Tablet 2.5 Mg PO DAILY Hydrochlorothiazide Tablet (Hydrochlorothiazide) 12.5 Mg Tablet 25 Mg PO DAILY Furosemide 20 Mg Tablet 20 Mg PO DAILY Tamsulosin Hcl 0.4 Mg Cap.er.24h 1 Cap PO DAILY Aspirin 81 Mg Tab.chew 81 Mg PO DAILY Metformin Hcl 500 Mg Tablet 500 Mg PO DAILY Vitals/I & O Vital Sign - Last 24 Hours 12/03/19 12/03/19 12/03/19 12/03/19 11:00 11:37 12:00 12:00 Pulse 56 54 Resp 24 26 B/P (MAP) 175/85 (115) 152/78 (102) Pulse Ox 99 96 O2 Delivery Vapotherm VAPOTHERM Nasal Cannula Vapotherm O2 Flow Rate 40.0 40.0 40.0 40.0 12/03/19 12/03/19 12/03/19 12/03/19 13:00 14:00 15:00 15:18 Temp 97.8 97.8 Pulse 52 56 60 Resp 24 23 26 B/P (MAP) 152/75 (100) 135/65 (88) 150/71 (97) Pulse Ox 97 96 97 95 O2 Delivery Vapotherm Vapotherm Vapotherm VAPOTHERM O2 Flow Rate 40.0 40.0 40.0 40.0 12/03/19 12/03/19 12/03/19 12/03/19 16:00 16:00 17:00 18:00 Temp 97.9 97.9 Pulse 56 54 62 Resp 25 25 B/P (MAP) 132/97 (109) 155/63 (93) 182/78 (112) Pulse Ox 93 90 89 O2 Delivery Nasal Cannula Vapotherm Vapotherm Vapotherm O2 Flow Rate 40.0 40.0 40.0 40.0 12/03/19 12/03/19 12/03/19 12/03/19 19:00 20:00 20:00 20:15 Temp 97.9 97.9 Pulse 58 64 Resp 45 B/P (MAP) 162/68 (99) Pulse Ox 97 88 92 O2 Delivery Nasal Cannula Nasal Cannula Vapotherm VAPOTHERM O2 Flow Rate 40.0 40.0 40.0 40.0 12/03/19 12/03/19 12/03/19 12/03/19 21:00 22:00 23:00 23:48 Temp 97.4 97.4 Pulse 64 58 64 Resp 35 30 19 B/P (MAP) 185/90 (121) 195/89 (124) 172/78 (109) Pulse Ox 92 89 89 95 O2 Delivery vapotherm vapotherm vapotherm VAPOTHERM O2 Flow Rate 40.0 40.0 40.0 40.0 12/04/19 12/04/19 12/04/19 12/04/19 00:00 00:00 00:34 01:00 Pulse 62 62 62 Resp 27 29 B/P (MAP) 191/88 (122) 191/88 168/77 (107) Pulse Ox 94 96 O2 Delivery vapotherm Nasal Cannula vapotherm O2 Flow Rate 40.0 40.0 40.0 12/04/19 12/04/19 12/04/19 12/04/19 02:00 03:00 03:19 04:00 Temp 96.7 96.7 Pulse 64 62 Resp 16 26 B/P (MAP) 172/77 (108) 163/65 (97) Pulse Ox 94 98 93 O2 Delivery vapotherm vapotherm VAPOTHERM Nasal Cannula O2 Flow Rate 40.0 40.0 40.0 40.0 12/04/19 12/04/19 12/04/19 12/04/19 04:00 05:00 05:58 06:00 Pulse 58 54 58 54 Resp 27 26 32 B/P (MAP) 170/75 (106) 187/76 (113) 187/71 165/67 (99) Pulse Ox 98 96 96 O2 Delivery vapotherm vapotherm vapotherm O2 Flow Rate 40.0 40.0 40.0 12/04/19 12/04/19 12/04/19 12/04/19 07:00 08:00 08:00 08:33 Temp 97.7 97.7 Pulse 60 65 60 Resp 30 20 B/P (MAP) 159/69 (99) 186/76 (112) 159/69 Pulse Ox 96 95 O2 Delivery vapotherm Nasal Cannula vapotherm O2 Flow Rate 40.0 40.0 40.0 12/04/19 09:00 Pulse 76 Resp 19 B/P (MAP) 154/62 (92) Pulse Ox 92 O2 Delivery vapotherm O2 Flow Rate 40.0 Intake and Output 12/03/19 12/03/19 12/04/19 15:00 23:00 07:00 Intake Total 400 ml 1737 ml 1000 ml Output Total 850 ml 1000 ml 1000 ml Balance -450 ml 737 ml 0 ml Justicifation of Admission Dx: Justifications for Admission: Justification of Admission Dx: Yes Sepsis: Hypoxemia FRED DALEY MD Dec 04, 2019 10:36
--- NOTE | 2019-12-04 10:49 | NUR ---
SS following up with discharge planning. SS reviewed pt chart and discussed with pt RN. COVID19 positive. Pt on Vapotherm at this time. SS will continue to follow for discharge planning.
--- NOTE | 2019-12-04 11:30 | PDOC ---
Renal-Progress Notes Subjective Notes Notes STILL SOB BUT IMPROVED FROM YESTERDAY History of Present Illness Hx of present illness STABLE Vitals Vitals Vital Signs Date Time Temp Pulse Resp B/P (MAP) Pulse Ox O2 Delivery O2 Flow Rate FiO2 12/04/19 10:00 60 24 150/67 (94) 100 vapotherm 40.0 12/04/19 08:00 97.7 97.7 Weight Weight [ ] I.O. Intake and Output Intake and Output 12/04/19 07:00 Intake Total 3137 ml Output Total 2850 ml Balance 287 ml Intake Oral 1000 ml IV Total 1137 ml Other 1000 ml Output Urine Total 2850 ml # Bowel Movements 1 Labs Labs Laboratory Tests Test 12/03/19 13:10 12/03/19 16:55 12/03/19 19:42 12/04/19 07:15 Glucose (Fingerstick) 236 mg/dL (70-99) 298 mg/dL (70-99) 294 mg/dL (70-99) White Blood Count 12.1 x10^3/uL (4.0-11.0) Red Blood Count 4.00 x10^6/uL (4.30-5.70) Hemoglobin 11.8 g/dL (13.0-17.5) Hematocrit 36.9 % (39.0-53.0) Mean Corpuscular Volume 92 fL (79-100) Mean Corpuscular Hemoglobin 30 pg (25-35) Mean Corpuscular Hemoglobin Concent 32 g/dL (31-37) Red Cell Distribution Width 13.5 % (11.5-14.5) Platelet Count 204 x10^3/uL (140-400) Neutrophils (%) (Auto) 90 % (31-73) Lymphocytes (%) (Auto) 5 % (24-48) Monocytes (%) (Auto) 5 % (0-9) Eosinophils (%) (Auto) 0 % (0-3) Basophils (%) (Auto) 0 % (0-3) Neutrophils # (Auto) 10.8 x10^3/uL (1.8-7.7) Lymphocytes # (Auto) 0.6 x10^3/uL (1.0-4.8) Monocytes # (Auto) 0.6 x10^3/uL (0.0-1.1) Eosinophils # (Auto) 0.0 x10^3/uL (0.0-0.7) Basophils # (Auto) 0.0 x10^3/uL (0.0-0.2) Sodium Level 141 mmol/L (136-145) Potassium Level 3.5 mmol/L (3.5-5.1) Chloride Level 103 mmol/L (98-107) Carbon Dioxide Level 30 mmol/L (21-32) Anion Gap 8 (6-14) Blood Urea Nitrogen 62 mg/dL (8-26) Creatinine 2.8 mg/dL (0.7-1.3) Estimated GFR (Cockcroft-Gault) 27.3 BUN/Creatinine Ratio 22 (6-20) Glucose Level 185 mg/dL (70-99) Calcium Level 8.5 mg/dL (8.5-10.1) Total Bilirubin 0.4 mg/dL (0.2-1.0) Aspartate Amino Transf (AST/SGOT) 69 U/L (15-37) Alanine Aminotransferase (ALT/SGPT) 78 U/L (16-63) Alkaline Phosphatase 70 U/L (46-116) C-Reactive Protein, Quantitative 41.0 mg/L (0-3.3) Total Protein 6.9 g/dL (6.4-8.2) Albumin 1.8 g/dL (3.4-5.0) Albumin/Globulin Ratio 0.4 (1.0-1.7) Procalcitonin 0.16 ng/mL (0.00-0.10) Test 12/04/19 11:21 Glucose (Fingerstick) 259 mg/dL (70-99) Micro Micro Microbiology 12/01/19 Urine Culture - Final, Complete Review of Systems Constitutional: yes: weakness, alert, oriented Ears/Nose/Throat: Yes: no symptom reported Eyes: Yes: no symptom reported Pulmonary: Yes dyspnea Cardiovascular: Yes edema Gastrointestional: Yes: no symptom reported Genitourinary: Yes: no symptom reported Musculoskeletal: Yes: muscle stiffness Skin: Yes no symptom reported Psychiatric/Neurological: Yes: no symptom reported Endocrine: Yes: no symptom reported Physical Exam General Appearance: no apparent distress, obese Skin: warm Respiratory: decreased breath sounds Heart: S1S2, RRR Abdomen: soft, bowel sounds present Genitourinary: bladder flat, hill catheter Extremities: pulses present, edema Neurology: alert, oriented, follow commands Musculoskeletal: Osteoarthritis Assessment Assessment IMP [id number]-CR DOWN TO 2.8 CKD STAGE 3 WITH CR OF 1.3 COVID 19 PNEUMONIA ACUTE HYPOXIC RESP FAILURE MORBID OBESITY PROTEIN CALORIE MALNUTRITION HEMATURIA [place] VS COVID 19 PLAN CONT TRIAL OF IVF'S VAPOTHERM MAINTAIN ADEQUATE MAP STOPPED PRESTON-I STOPPED THIAZIDE AND LASIX WILL FOLLOW ANETA CANO MD Dec 04, 2019 11:30
[2019-12-04] MEDS: IV NORMAL SALINE 1000ML BAG 1,000 ML IV SCH (11:48)
--- NOTE | 2019-12-04 12:01 | PDOC ---
PULMONARY PROGRESS NOTES DATE: 12/04/19 TIME: 11:59 Subjective comfortable on vapotherm, 40 liters and 100%, was able to tolerate 90% for most of night however, experienced some hypoxia and was placed back on 100% up to chair today, No increased cough No SOA, NO increased cough Vitals Vital Signs Date Time Temp Pulse Resp B/P (MAP) Pulse Ox O2 Delivery O2 Flow Rate FiO2 12/04/19 11:00 84 27 136/67 (90) 97 vapotherm 40.0 12/04/19 08:00 97.7 97.7 Comments visual exam done OOB to chair no soa, no skin rash no edema General: Alert, No acute distress Labs Laboratory Tests Test 12/02/19 16:49 12/02/19 19:46 12/03/19 05:00 12/03/19 07:52 Glucose (Fingerstick) 182 mg/dL (70-99) 217 mg/dL (70-99) 197 mg/dL (70-99) White Blood Count 13.8 x10^3/uL (4.0-11.0) Red Blood Count 3.76 x10^6/uL (4.30-5.70) Hemoglobin 11.2 g/dL (13.0-17.5) Hematocrit 34.6 % (39.0-53.0) Mean Corpuscular Volume 92 fL (79-100) Mean Corpuscular Hemoglobin 30 pg (25-35) Mean Corpuscular Hemoglobin Concent 33 g/dL (31-37) Red Cell Distribution Width 13.4 % (11.5-14.5) Platelet Count 207 x10^3/uL (140-400) Neutrophils (%) (Auto) 92 % (31-73) Lymphocytes (%) (Auto) 5 % (24-48) Monocytes (%) (Auto) 3 % (0-9) Eosinophils (%) (Auto) 0 % (0-3) Basophils (%) (Auto) 0 % (0-3) Neutrophils # (Auto) 12.7 x10^3/uL (1.8-7.7) Lymphocytes # (Auto) 0.7 x10^3/uL (1.0-4.8) Monocytes # (Auto) 0.4 x10^3/uL (0.0-1.1) Eosinophils # (Auto) 0.0 x10^3/uL (0.0-0.7) Basophils # (Auto) 0.0 x10^3/uL (0.0-0.2) Sodium Level 136 mmol/L (136-145) Potassium Level 3.6 mmol/L (3.5-5.1) Chloride Level 98 mmol/L (98-107) Carbon Dioxide Level 28 mmol/L (21-32) Anion Gap 10 (6-14) Blood Urea Nitrogen 69 mg/dL (8-26) Creatinine 3.8 mg/dL (0.7-1.3) Estimated GFR (Cockcroft-Gault) 19.2 BUN/Creatinine Ratio 18 (6-20) Glucose Level 244 mg/dL (70-99) Calcium Level 8.3 mg/dL (8.5-10.1) Ferritin 782 ng/mL (26-388) Total Bilirubin 0.3 mg/dL (0.2-1.0) Aspartate Amino Transf (AST/SGOT) 55 U/L (15-37) Alanine Aminotransferase (ALT/SGPT) 45 U/L (16-63) Alkaline Phosphatase 62 U/L (46-116) Total Protein 6.7 g/dL (6.4-8.2) Albumin 1.8 g/dL (3.4-5.0) Albumin/Globulin Ratio 0.4 (1.0-1.7) Test 12/03/19 13:10 12/03/19 16:55 12/03/19 19:42 12/04/19 07:15 Glucose (Fingerstick) 236 mg/dL (70-99) 298 mg/dL (70-99) 294 mg/dL (70-99) White Blood Count 12.1 x10^3/uL (4.0-11.0) Red Blood Count 4.00 x10^6/uL (4.30-5.70) Hemoglobin 11.8 g/dL (13.0-17.5) Hematocrit 36.9 % (39.0-53.0) Mean Corpuscular Volume 92 fL (79-100) Mean Corpuscular Hemoglobin 30 pg (25-35) Mean Corpuscular Hemoglobin Concent 32 g/dL (31-37) Red Cell Distribution Width 13.5 % (11.5-14.5) Platelet Count 204 x10^3/uL (140-400) Neutrophils (%) (Auto) 90 % (31-73) Lymphocytes (%) (Auto) 5 % (24-48) Monocytes (%) (Auto) 5 % (0-9) Eosinophils (%) (Auto) 0 % (0-3) Basophils (%) (Auto) 0 % (0-3) Neutrophils # (Auto) 10.8 x10^3/uL (1.8-7.7) Lymphocytes # (Auto) 0.6 x10^3/uL (1.0-4.8) Monocytes # (Auto) 0.6 x10^3/uL (0.0-1.1) Eosinophils # (Auto) 0.0 x10^3/uL (0.0-0.7) Basophils # (Auto) 0.0 x10^3/uL (0.0-0.2) Sodium Level 141 mmol/L (136-145) Potassium Level 3.5 mmol/L (3.5-5.1) Chloride Level 103 mmol/L (98-107) Carbon Dioxide Level 30 mmol/L (21-32) Anion Gap 8 (6-14) Blood Urea Nitrogen 62 mg/dL (8-26) Creatinine 2.8 mg/dL (0.7-1.3) Estimated GFR (Cockcroft-Gault) 27.3 BUN/Creatinine Ratio 22 (6-20) Glucose Level 185 mg/dL (70-99) Calcium Level 8.5 mg/dL (8.5-10.1) Total Bilirubin 0.4 mg/dL (0.2-1.0) Aspartate Amino Transf (AST/SGOT) 69 U/L (15-37) Alanine Aminotransferase (ALT/SGPT) 78 U/L (16-63) Alkaline Phosphatase 70 U/L (46-116) C-Reactive Protein, Quantitative 41.0 mg/L (0-3.3) Total Protein 6.9 g/dL (6.4-8.2) Albumin 1.8 g/dL (3.4-5.0) Albumin/Globulin Ratio 0.4 (1.0-1.7) Procalcitonin 0.16 ng/mL (0.00-0.10) Test 12/04/19 11:21 Glucose (Fingerstick) 259 mg/dL (70-99) Laboratory Tests Test 12/03/19 13:10 12/03/19 16:55 12/03/19 19:42 12/04/19 07:15 Glucose (Fingerstick) 236 mg/dL (70-99) 298 mg/dL (70-99) 294 mg/dL (70-99) White Blood Count 12.1 x10^3/uL (4.0-11.0) Red Blood Count 4.00 x10^6/uL (4.30-5.70) Hemoglobin 11.8 g/dL (13.0-17.5) Hematocrit 36.9 % (39.0-53.0) Mean Corpuscular Volume 92 fL (79-100) Mean Corpuscular Hemoglobin 30 pg (25-35) Mean Corpuscular Hemoglobin Concent 32 g/dL (31-37) Red Cell Distribution Width 13.5 % (11.5-14.5) Platelet Count 204 x10^3/uL (140-400) Neutrophils (%) (Auto) 90 % (31-73) Lymphocytes (%) (Auto) 5 % (24-48) Monocytes (%) (Auto) 5 % (0-9) Eosinophils (%) (Auto) 0 % (0-3) Basophils (%) (Auto) 0 % (0-3) Neutrophils # (Auto) 10.8 x10^3/uL (1.8-7.7) Lymphocytes # (Auto) 0.6 x10^3/uL (1.0-4.8) Monocytes # (Auto) 0.6 x10^3/uL (0.0-1.1) Eosinophils # (Auto) 0.0 x10^3/uL (0.0-0.7) Basophils # (Auto) 0.0 x10^3/uL (0.0-0.2) Sodium Level 141 mmol/L (136-145) Potassium Level 3.5 mmol/L (3.5-5.1) Chloride Level 103 mmol/L (98-107) Carbon Dioxide Level 30 mmol/L (21-32) Anion Gap 8 (6-14) Blood Urea Nitrogen 62 mg/dL (8-26) Creatinine 2.8 mg/dL (0.7-1.3) Estimated GFR (Cockcroft-Gault) 27.3 BUN/Creatinine Ratio 22 (6-20) Glucose Level 185 mg/dL (70-99) Calcium Level 8.5 mg/dL (8.5-10.1) Total Bilirubin 0.4 mg/dL (0.2-1.0) Aspartate Amino Transf (AST/SGOT) 69 U/L (15-37) Alanine Aminotransferase (ALT/SGPT) 78 U/L (16-63) Alkaline Phosphatase 70 U/L (46-116) C-Reactive Protein, Quantitative 41.0 mg/L (0-3.3) Total Protein 6.9 g/dL (6.4-8.2) Albumin 1.8 g/dL (3.4-5.0) Albumin/Globulin Ratio 0.4 (1.0-1.7) Procalcitonin 0.16 ng/mL (0.00-0.10) Test 12/04/19 11:21 Glucose (Fingerstick) 259 mg/dL (70-99) Medications Active Scripts Medications Dose Route/Sig Max Daily Dose Days Date Category [place] 5-325 Tablet (Acetaminophen/Hydrocodone Bitart) 1 Each Tablet 1 Tab PO PRN Q6HRS PRN 03/20/18 Rx Orphenadrine Citrate 100 Mg Tablet.er 1 Tab PO BID 03/20/18 Rx Amlodipine Besylate 5 Mg Tablet 5 Mg PO DAILY 02/20/17 Rx Lisinopril 40 Mg Tablet 40 Mg PO DAILY 02/18/17 Reported Glipizide 5 Mg Tablet 2.5 Mg PO DAILY 02/18/17 Reported Hydrochlorothiazide Tablet (Hydrochlorothiazide) 12.5 Mg Tablet 25 Mg PO DAILY 02/18/17 Reported Furosemide 20 Mg Tablet 20 Mg PO DAILY 02/18/17 Reported Tamsulosin Hcl 0.4 Mg Cap.er.24h 1 Cap PO DAILY 02/18/17 Reported Aspirin 81 Mg Tab.chew 81 Mg PO DAILY 02/18/17 Reported Metformin Hcl 500 Mg Tablet 500 Mg PO DAILY 02/18/17 Reported Comments CXR Impression: Bilateral perihilar infiltrates. Impression . 1. Acute hypoxic respiratory failure secondary to COVID-19 pneumonia/acute lung injury/early acute respiratory distress syndrome.-- slow improvement 2. Abnormal chest x-ray with bilateral interstitial infiltrates, suggestive of COVID-19 pneumonia. 3. No significant tobacco history. 4. Acute kidney injury on top of CKD with baseline cr of 1.3--- improving 5. Severe protein-calorie malnutrition. 6. Abnormal D-dimer, likely related to COVID pneumonia. Plan . RECOMMENDATIONS: Slow clinical improvement Vapotherm.-- currently 40 Liters and 100%wean Fio2 slowly, will reduce Fi02 to 90% and continue to wean per oxygen saturation, will decrease flow once at 50% Fi02, experienced some hypoxia overnight Continue steroids for COVID-19 pneumonia, will need total of 10 days Continue DVT prophylaxis high dose and monitor D-dimers. empiric antibiotics. Follow renal recommendations, cr improving slowly S/P plasma DVT/GI PPX D/W RN and RT TOTAL CRITICAL CARE TIME: 30 minutes. ABBY MOORE MD Dec 04, 2019 12:01
[2019-12-04] MEDS: ATORVASTATIN CALCIUM 40 MG TABLET. PO SCH (21:48)
[2019-12-04] MEDS: THIAMINE 100 MG TABLET. PO SCH (21:53)
[2019-12-04] MEDS: STERILE WATER for RESP 1,000 ML BAG. INH PRN (22:07)
[2019-12-05] VITALS (24 sets, daily range): BP systolic 126–197; BP diastolic 61–103
[2019-12-05] MEDS: PIPERACILLIN/TAZOBACTAM 3.375 GM in IV NORMAL SALINE 50ML 50 ML IV SCH ×5 (00:27→23:49)
[2019-12-05] MEDS: IV NORMAL SALINE 1000ML BAG 1,000 ML IV SCH ×2 (03:14→17:28)
--- NOTE | 2019-12-05 03:35 | NUR ---
Went to assist patient from chair to bed. Noticed urine has turned pink/bloody color with sediment. Pringle had become undone from stat lock, and was put back. Patient also now having a nose bleed- on vapotherm, wants to go down on settings. Explained to patient that we cannot go down on his O2 settings as he is still quickly becomes SOA with O2 sats dropping with minimal exertion. Dr. Lopez informed of the above- orders to hold AM heparin for now and monitor urine and nose bleed.
[2019-12-05] MEDS: HEPARIN for SUB-Q USE 5,000 UNIT/ML VIAL. SQ SCH ×3 (05:51→20:48)
[2019-12-05] MEDS: methylPREDNISolone SOD SUCC PF 40 MG/ML VIAL. IV SCH ×3 (05:53→20:45)
[2019-12-05 06:03] LABS: BASO % 0 % (0-3); EOS % 0 % (0-3); HEMOGLOBIN 11.7 g/dL (13.0-17.5); LYMPH # 0.7 x10^3/uL (1.0-4.8); LYMPH % 5 % (24-48); MEAN CORPUSCULAR HEMOGLOBIN 31 pg (25-35); MEAN CORPUSCULAR HGB CONC 33 g/dL (31-37); MEAN CORPUSCULAR VOLUME 92 fL (79-100); MONO # 0.5 x10^3/uL (0.0-1.1); MONO % 4 % (0-9); NEUT # 11.3 x10^3/uL (1.8-7.7); NEUT % 91 % (31-73); PLATELET COUNT 202 x10^3/uL (140-400); RED BLOOD COUNT 3.78 x10^6/uL (4.30-5.70); RED CELL DISTRIBUTION WIDTH 13.6 % (11.5-14.5); WHITE BLOOD COUNT 12.5 x10^3/uL (4.0-11.0)
[2019-12-05 06:17] LABS: ALBUMIN 1.7 g/dL (3.4-5.0); ALBUMIN/GLOBULIN RATIO 0.4 (1.0-1.7); CALCIUM 8.6 mg/dL (8.5-10.1); CREATININE 2.2 mg/dL (0.7-1.3); GFR 36.1; POTASSIUM 3.8 mmol/L (3.5-5.1); TOTAL BILIRUBIN 0.4 mg/dL (0.2-1.0); TOTAL PROTEIN 6.5 g/dL (6.4-8.2)
[2019-12-05] MEDS: INSULIN LISPRO 300 UNITS/3 ML VIAL. SQ SCH ×7 (07:30→20:47)
[2019-12-05] MEDS: hydrALAZINE 20 MG/ML VIAL. IVP PRN ×2 (07:43→16:45)
[2019-12-05] MEDS: LACTOBACILLUS RHAMNOSUS GG 1 CAPSULE. PO SCH ×2 (08:17→20:45)
[2019-12-05] MEDS: THIAMINE 100 MG TABLET. PO SCH ×2 (08:17→20:45)
[2019-12-05] MEDS: ASPIRIN CHEWABLE 81 MG TABLET. PO SCH (08:17)
[2019-12-05] MEDS: ZINC SULFATE 220 MG CAPSULE. PO SCH (08:17)
[2019-12-05] MEDS: FAMOTIDINE 20 MG/2 ML VIAL IVP SCH (08:18)
[2019-12-05] MEDS: TAMSULOSIN 0.4 MG CAP.ER.24H. PO SCH (08:18)
[2019-12-05] MEDS: amLODIPine BESYLATE 10 MG TABLET PO SCH (08:18)
[2019-12-05] MEDS: CHOLECALCIFEROL (VITAMIN D3) 1,000 UNIT TABLET PO SCH ×2 (08:18→20:45)
[2019-12-05] MEDS: ASCORBIC ACID 500 MG TABLET PO SCH ×2 (08:18→20:45)
[2019-12-05] MEDS: SENNOSIDES/DOCUSATE 8.6/50MG TABLET. PO SCH ×2 (08:18→20:46)
--- NOTE | 2019-12-05 08:48 | PDOC ---
PULMONARY PROGRESS NOTES DATE: 12/05/19 TIME: 08:48 Subjective comfortable on vapotherm, 40 liters and 100%, continues to experience hypoxia with movement No SOA, NO increased cough a-febrile Nurse notes nose bleed overnight Vitals Vital Signs Date Time Temp Pulse Resp B/P (MAP) Pulse Ox O2 Delivery O2 Flow Rate FiO2 12/05/19 08:18 70 156/71 12/05/19 08:00 97.6 31 86 vapotherm 40.0 97.6 Comments visual exam done OOB to chair no soa, no skin rash no edema General: Alert, No acute distress Labs Laboratory Tests Test 12/03/19 13:10 12/03/19 16:55 12/03/19 19:42 12/04/19 07:15 Glucose (Fingerstick) 236 mg/dL (70-99) 298 mg/dL (70-99) 294 mg/dL (70-99) White Blood Count 12.1 x10^3/uL (4.0-11.0) Red Blood Count 4.00 x10^6/uL (4.30-5.70) Hemoglobin 11.8 g/dL (13.0-17.5) Hematocrit 36.9 % (39.0-53.0) Mean Corpuscular Volume 92 fL (79-100) Mean Corpuscular Hemoglobin 30 pg (25-35) Mean Corpuscular Hemoglobin Concent 32 g/dL (31-37) Red Cell Distribution Width 13.5 % (11.5-14.5) Platelet Count 204 x10^3/uL (140-400) Neutrophils (%) (Auto) 90 % (31-73) Lymphocytes (%) (Auto) 5 % (24-48) Monocytes (%) (Auto) 5 % (0-9) Eosinophils (%) (Auto) 0 % (0-3) Basophils (%) (Auto) 0 % (0-3) Neutrophils # (Auto) 10.8 x10^3/uL (1.8-7.7) Lymphocytes # (Auto) 0.6 x10^3/uL (1.0-4.8) Monocytes # (Auto) 0.6 x10^3/uL (0.0-1.1) Eosinophils # (Auto) 0.0 x10^3/uL (0.0-0.7) Basophils # (Auto) 0.0 x10^3/uL (0.0-0.2) Sodium Level 141 mmol/L (136-145) Potassium Level 3.5 mmol/L (3.5-5.1) Chloride Level 103 mmol/L (98-107) Carbon Dioxide Level 30 mmol/L (21-32) Anion Gap 8 (6-14) Blood Urea Nitrogen 62 mg/dL (8-26) Creatinine 2.8 mg/dL (0.7-1.3) Estimated GFR (Cockcroft-Gault) 27.3 BUN/Creatinine Ratio 22 (6-20) Glucose Level 185 mg/dL (70-99) Calcium Level 8.5 mg/dL (8.5-10.1) Total Bilirubin 0.4 mg/dL (0.2-1.0) Aspartate Amino Transf (AST/SGOT) 69 U/L (15-37) Alanine Aminotransferase (ALT/SGPT) 78 U/L (16-63) Alkaline Phosphatase 70 U/L (46-116) C-Reactive Protein, Quantitative 41.0 mg/L (0-3.3) Total Protein 6.9 g/dL (6.4-8.2) Albumin 1.8 g/dL (3.4-5.0) Albumin/Globulin Ratio 0.4 (1.0-1.7) Procalcitonin 0.16 ng/mL (0.00-0.10) Test 12/04/19 11:21 12/04/19 17:45 12/04/19 21:46 12/05/19 05:00 Glucose (Fingerstick) 259 mg/dL (70-99) 263 mg/dL (70-99) 233 mg/dL (70-99) D-Dimer (Natty) 1.98 ug/mlFEU (0.00-0.50) Test 12/05/19 05:30 12/05/19 08:28 White Blood Count 12.5 x10^3/uL (4.0-11.0) Red Blood Count 3.78 x10^6/uL (4.30-5.70) Hemoglobin 11.7 g/dL (13.0-17.5) Hematocrit 35.0 % (39.0-53.0) Mean Corpuscular Volume 92 fL (79-100) Mean Corpuscular Hemoglobin 31 pg (25-35) Mean Corpuscular Hemoglobin Concent 33 g/dL (31-37) Red Cell Distribution Width 13.6 % (11.5-14.5) Platelet Count 202 x10^3/uL (140-400) Neutrophils (%) (Auto) 91 % (31-73) Lymphocytes (%) (Auto) 5 % (24-48) Monocytes (%) (Auto) 4 % (0-9) Eosinophils (%) (Auto) 0 % (0-3) Basophils (%) (Auto) 0 % (0-3) Neutrophils # (Auto) 11.3 x10^3/uL (1.8-7.7) Lymphocytes # (Auto) 0.7 x10^3/uL (1.0-4.8) Monocytes # (Auto) 0.5 x10^3/uL (0.0-1.1) Eosinophils # (Auto) 0.0 x10^3/uL (0.0-0.7) Basophils # (Auto) 0.0 x10^3/uL (0.0-0.2) Sodium Level 142 mmol/L (136-145) Potassium Level 3.8 mmol/L (3.5-5.1) Chloride Level 107 mmol/L (98-107) Carbon Dioxide Level 28 mmol/L (21-32) Anion Gap 7 (6-14) Blood Urea Nitrogen 53 mg/dL (8-26) Creatinine 2.2 mg/dL (0.7-1.3) Estimated GFR (Cockcroft-Gault) 36.1 BUN/Creatinine Ratio 24 (6-20) Glucose Level 90 mg/dL (70-99) Calcium Level 8.6 mg/dL (8.5-10.1) Total Bilirubin 0.4 mg/dL (0.2-1.0) Aspartate Amino Transf (AST/SGOT) 33 U/L (15-37) Alanine Aminotransferase (ALT/SGPT) 62 U/L (16-63) Alkaline Phosphatase 70 U/L (46-116) Total Protein 6.5 g/dL (6.4-8.2) Albumin 1.7 g/dL (3.4-5.0) Albumin/Globulin Ratio 0.4 (1.0-1.7) Glucose (Fingerstick) 67 mg/dL (70-99) Laboratory Tests Test 12/04/19 11:21 12/04/19 17:45 12/04/19 21:46 12/05/19 05:00 Glucose (Fingerstick) 259 mg/dL (70-99) 263 mg/dL (70-99) 233 mg/dL (70-99) D-Dimer (Natty) 1.98 ug/mlFEU (0.00-0.50) Test 12/05/19 05:30 12/05/19 08:28 White Blood Count 12.5 x10^3/uL (4.0-11.0) Red Blood Count 3.78 x10^6/uL (4.30-5.70) Hemoglobin 11.7 g/dL (13.0-17.5) Hematocrit 35.0 % (39.0-53.0) Mean Corpuscular Volume 92 fL (79-100) Mean Corpuscular Hemoglobin 31 pg (25-35) Mean Corpuscular Hemoglobin Concent 33 g/dL (31-37) Red Cell Distribution Width 13.6 % (11.5-14.5) Platelet Count 202 x10^3/uL (140-400) Neutrophils (%) (Auto) 91 % (31-73) Lymphocytes (%) (Auto) 5 % (24-48) Monocytes (%) (Auto) 4 % (0-9) Eosinophils (%) (Auto) 0 % (0-3) Basophils (%) (Auto) 0 % (0-3) Neutrophils # (Auto) 11.3 x10^3/uL (1.8-7.7) Lymphocytes # (Auto) 0.7 x10^3/uL (1.0-4.8) Monocytes # (Auto) 0.5 x10^3/uL (0.0-1.1) Eosinophils # (Auto) 0.0 x10^3/uL (0.0-0.7) Basophils # (Auto) 0.0 x10^3/uL (0.0-0.2) Sodium Level 142 mmol/L (136-145) Potassium Level 3.8 mmol/L (3.5-5.1) Chloride Level 107 mmol/L (98-107) Carbon Dioxide Level 28 mmol/L (21-32) Anion Gap 7 (6-14) Blood Urea Nitrogen 53 mg/dL (8-26) Creatinine 2.2 mg/dL (0.7-1.3) Estimated GFR (Cockcroft-Gault) 36.1 BUN/Creatinine Ratio 24 (6-20) Glucose Level 90 mg/dL (70-99) Calcium Level 8.6 mg/dL (8.5-10.1) Total Bilirubin 0.4 mg/dL (0.2-1.0) Aspartate Amino Transf (AST/SGOT) 33 U/L (15-37) Alanine Aminotransferase (ALT/SGPT) 62 U/L (16-63) Alkaline Phosphatase 70 U/L (46-116) Total Protein 6.5 g/dL (6.4-8.2) Albumin 1.7 g/dL (3.4-5.0) Albumin/Globulin Ratio 0.4 (1.0-1.7) Glucose (Fingerstick) 67 mg/dL (70-99) Medications Active Scripts Medications Dose Route/Sig Max Daily Dose Days Date Category [place] 5-325 Tablet (Acetaminophen/Hydrocodone Bitart) 1 Each Tablet 1 Tab PO PRN Q6HRS PRN 03/20/18 Rx Orphenadrine Citrate 100 Mg Tablet.er 1 Tab PO BID 03/20/18 Rx Amlodipine Besylate 5 Mg Tablet 5 Mg PO DAILY 02/20/17 Rx Lisinopril 40 Mg Tablet 40 Mg PO DAILY 02/18/17 Reported Glipizide 5 Mg Tablet 2.5 Mg PO DAILY 02/18/17 Reported Hydrochlorothiazide Tablet (Hydrochlorothiazide) 12.5 Mg Tablet 25 Mg PO DAILY 02/18/17 Reported Furosemide 20 Mg Tablet 20 Mg PO DAILY 02/18/17 Reported Tamsulosin Hcl 0.4 Mg Cap.er.24h 1 Cap PO DAILY 02/18/17 Reported Aspirin 81 Mg Tab.chew 81 Mg PO DAILY 02/18/17 Reported Metformin Hcl 500 Mg Tablet 500 Mg PO DAILY 02/18/17 Reported Comments CXR Impression: Bilateral perihilar infiltrates. CXR 12/05/19 Impression: Slight interval increase in the bilateral perihilar infiltrates. Impression . 1. Acute hypoxic respiratory failure secondary to COVID-19 pneumonia/acute lung injury/early acute respiratory distress syndrome.-- slow improvement 2. Abnormal chest x-ray with bilateral interstitial infiltrates, suggestive of COVID-19 pneumonia.--slight improvement 3. No significant tobacco history. 4. Acute kidney injury on top of CKD with baseline cr of 1.3--- stable 5. Severe protein-calorie malnutrition. 6. Abnormal D-dimer, likely related to COVID pneumonia. Plan . RECOMMENDATIONS: Slow clinical improvement Vapotherm.-- currently 40 Liters and 100%wean Fio2 slowly, Continue hypoxia W/ movement Continue steroids for COVID-19 pneumonia, will need total of 10 days empiric antibiotics. Follow renal recommendations, cr improving slowly S/P plasma D-dimers. DVT/GI PPX -- high dose DVT PPX D/W RN and RT TOTAL CRITICAL CARE TIME: 30 minutes. YUNIER COLBY MD Dec 05, 2019 08:48
[2019-12-05] MEDS: STERILE WATER for RESP 1,000 ML BAG. INH PRN ×2 (08:58→22:50)
--- NOTE | 2019-12-05 09:22 | RAD ---
AP portable chest radiograph 12/05/2019 Clinical History: COVID 19. Lung infiltrates. An AP erect portable digital radiograph of the chest was obtained. Comparison study is dated 11/28/2019. The cardiac silhouette is mildly enlarged. The thoracic aorta is mildly tortuous. Bilateral perihilar infiltrates are seen and appear increased slightly. No pneumothorax or pleural effusion is noted. The osseous structures are unchanged. Impression: Slight interval increase in the bilateral perihilar infiltrates. Electronically signed by: Lul Ugalde MD (12/05/2019 9:19 AM) [id number]
--- NOTE | 2019-12-05 10:42 | PDOC ---
PROGRESS NOTES Date of Service: DATE: 12/05/19 TIME: 10:39 Chief Complaint Chief Complaint COVID 19 infection acute hypoxemic respiratory distress due to the above. Acute renal failure due to vasomotor nephropathy normocytic anemia Diabetes-Type II High Cholesterol Hypertension Severe protein calorie malnutrition FEN - ADA PPX - lovenox FULL CODE Dispo - inpatient History of Present Illness History of Present Illness Mr Olvera is a 69yo M w/ PMHx Diabetes-Type II, High Cholesterol, Hypertension who was in his usual state of health until 2 days prior ot his admission when he was evaluated at [facility] and found to be positive for COVID 19 virus, patient was discharged and given instructions to follow up in the nearest medical center would his symptoms worsen, Today he felt worse and more dyspneic reason why he came to the ER, he initially requiring 1 liter of oxygen 11/28: Febrile 101 3 F overnight. Procalcitonin elevated, INR 1.4, WBC 9.1, Hb 11.9, platelets 189, NA 137, K3.4, BUN 39, CR 2.8, glucose 240. He is short of breath with cough. He is insistent he does not wish for convalescent FFP if his O2 needs continues to increase. Now on 4L NCO2. 11/29: Febrile to 101.5 F overnight. Creatinine increased to 4.1, he still very short of breath worsening cough, increased from 6 L nasal cannula overnight to 15 L nonrebreather facemask. I discussed with pulmonology to transferred out of the ICU. I have asked the patient to reconsider convalesce and FFP and will discuss with his family. 11/30: No acute events reported overnight, case discussed with nursing staff patient in no acute distress no complaints during my visit seems to be tolerating Vapotherm well hopefully he will be able to continue with improving, encourage proning position if tolerated 12/01: No acute events reported overnight, case discussed with nursing staff patient in no acute distress no complaints during my visit, given update patient 's over the phone reassurance has been provided no new complaints seems to be status quo. Encourage more activity as tolerated in prone positioning 12/02: Discussed with nursing staff, no acute events overnight. Breathing well on Vapotherm. Continue ICU monitoring. 12/03: Patient with O2 desaturation overnight. Breathing more comfortably upright position. Currently breathing on 40 L of high flow nasal cannula with 100% O2 saturation 12/04: Patient is breathing in upright position comfortably today on Vapotherm. Had episode of hypoglycemia today. Discussed with RN, hold insulin for hypoglycemia. Continue broad-spectrum antibiotics, steroids, vitamin C. Vitals Vitals Vital Signs Date Time Temp Pulse Resp B/P (MAP) Pulse Ox O2 Delivery O2 Flow Rate FiO2 12/05/19 10:00 73 33 197/103 (134) 91 vapotherm 40.0 12/05/19 08:00 97.6 97.6 Physical Exam General: Alert Heart: Regular rate, Normal S1, Normal S2 Abdomen: Normal bowel sounds, Soft Extremities: No clubbing, No cyanosis Skin: No rashes, No breakdown Labs LABS Laboratory Tests Test 12/04/19 11:21 12/04/19 17:45 12/04/19 21:46 12/05/19 05:00 Glucose (Fingerstick) 259 mg/dL (70-99) 263 mg/dL (70-99) 233 mg/dL (70-99) D-Dimer (Natty) 1.98 ug/mlFEU (0.00-0.50) Test 12/05/19 05:30 12/05/19 08:28 White Blood Count 12.5 x10^3/uL (4.0-11.0) Red Blood Count 3.78 x10^6/uL (4.30-5.70) Hemoglobin 11.7 g/dL (13.0-17.5) Hematocrit 35.0 % (39.0-53.0) Mean Corpuscular Volume 92 fL (79-100) Mean Corpuscular Hemoglobin 31 pg (25-35) Mean Corpuscular Hemoglobin Concent 33 g/dL (31-37) Red Cell Distribution Width 13.6 % (11.5-14.5) Platelet Count 202 x10^3/uL (140-400) Neutrophils (%) (Auto) 91 % (31-73) Lymphocytes (%) (Auto) 5 % (24-48) Monocytes (%) (Auto) 4 % (0-9) Eosinophils (%) (Auto) 0 % (0-3) Basophils (%) (Auto) 0 % (0-3) Neutrophils # (Auto) 11.3 x10^3/uL (1.8-7.7) Lymphocytes # (Auto) 0.7 x10^3/uL (1.0-4.8) Monocytes # (Auto) 0.5 x10^3/uL (0.0-1.1) Eosinophils # (Auto) 0.0 x10^3/uL (0.0-0.7) Basophils # (Auto) 0.0 x10^3/uL (0.0-0.2) Sodium Level 142 mmol/L (136-145) Potassium Level 3.8 mmol/L (3.5-5.1) Chloride Level 107 mmol/L (98-107) Carbon Dioxide Level 28 mmol/L (21-32) Anion Gap 7 (6-14) Blood Urea Nitrogen 53 mg/dL (8-26) Creatinine 2.2 mg/dL (0.7-1.3) Estimated GFR (Cockcroft-Gault) 36.1 BUN/Creatinine Ratio 24 (6-20) Glucose Level 90 mg/dL (70-99) Calcium Level 8.6 mg/dL (8.5-10.1) Total Bilirubin 0.4 mg/dL (0.2-1.0) Aspartate Amino Transf (AST/SGOT) 33 U/L (15-37) Alanine Aminotransferase (ALT/SGPT) 62 U/L (16-63) Alkaline Phosphatase 70 U/L (46-116) Total Protein 6.5 g/dL (6.4-8.2) Albumin 1.7 g/dL (3.4-5.0) Albumin/Globulin Ratio 0.4 (1.0-1.7) Glucose (Fingerstick) 67 mg/dL (70-99) Review of Systems Review of Systems Unable to obtain due to clinical condition Assessment and Plan Assessmemt and Plan Problems Medical Problems: (1) ARF (acute renal failure) Status: Acute (2) Fever Status: Acute (3) Hypoxemia Status: Acute (4) Sepsis Status: Acute Comment Review of Relevant I have reviewed the following items bren (where applicable) has been applied. Labs Laboratory Tests Test 12/03/19 13:10 12/03/19 16:55 12/03/19 19:42 12/04/19 07:15 Glucose (Fingerstick) 236 mg/dL (70-99) 298 mg/dL (70-99) 294 mg/dL (70-99) White Blood Count 12.1 x10^3/uL (4.0-11.0) Red Blood Count 4.00 x10^6/uL (4.30-5.70) Hemoglobin 11.8 g/dL (13.0-17.5) Hematocrit 36.9 % (39.0-53.0) Mean Corpuscular Volume 92 fL (79-100) Mean Corpuscular Hemoglobin 30 pg (25-35) Mean Corpuscular Hemoglobin Concent 32 g/dL (31-37) Red Cell Distribution Width 13.5 % (11.5-14.5) Platelet Count 204 x10^3/uL (140-400) Neutrophils (%) (Auto) 90 % (31-73) Lymphocytes (%) (Auto) 5 % (24-48) Monocytes (%) (Auto) 5 % (0-9) Eosinophils (%) (Auto) 0 % (0-3) Basophils (%) (Auto) 0 % (0-3) Neutrophils # (Auto) 10.8 x10^3/uL (1.8-7.7) Lymphocytes # (Auto) 0.6 x10^3/uL (1.0-4.8) Monocytes # (Auto) 0.6 x10^3/uL (0.0-1.1) Eosinophils # (Auto) 0.0 x10^3/uL (0.0-0.7) Basophils # (Auto) 0.0 x10^3/uL (0.0-0.2) Sodium Level 141 mmol/L (136-145) Potassium Level 3.5 mmol/L (3.5-5.1) Chloride Level 103 mmol/L (98-107) Carbon Dioxide Level 30 mmol/L (21-32) Anion Gap 8 (6-14) Blood Urea Nitrogen 62 mg/dL (8-26) Creatinine 2.8 mg/dL (0.7-1.3) Estimated GFR (Cockcroft-Gault) 27.3 BUN/Creatinine Ratio 22 (6-20) Glucose Level 185 mg/dL (70-99) Calcium Level 8.5 mg/dL (8.5-10.1) Total Bilirubin 0.4 mg/dL (0.2-1.0) Aspartate Amino Transf (AST/SGOT) 69 U/L (15-37) Alanine Aminotransferase (ALT/SGPT) 78 U/L (16-63) Alkaline Phosphatase 70 U/L (46-116) C-Reactive Protein, Quantitative 41.0 mg/L (0-3.3) Total Protein 6.9 g/dL (6.4-8.2) Albumin 1.8 g/dL (3.4-5.0) Albumin/Globulin Ratio 0.4 (1.0-1.7) Procalcitonin 0.16 ng/mL (0.00-0.10) Test 12/04/19 11:21 12/04/19 17:45 12/04/19 21:46 12/05/19 05:00 Glucose (Fingerstick) 259 mg/dL (70-99) 263 mg/dL (70-99) 233 mg/dL (70-99) D-Dimer (Natty) 1.98 ug/mlFEU (0.00-0.50) Test 12/05/19 05:30 12/05/19 08:28 White Blood Count 12.5 x10^3/uL (4.0-11.0) Red Blood Count 3.78 x10^6/uL (4.30-5.70) Hemoglobin 11.7 g/dL (13.0-17.5) Hematocrit 35.0 % (39.0-53.0) Mean Corpuscular Volume 92 fL (79-100) Mean Corpuscular Hemoglobin 31 pg (25-35) Mean Corpuscular Hemoglobin Concent 33 g/dL (31-37) Red Cell Distribution Width 13.6 % (11.5-14.5) Platelet Count 202 x10^3/uL (140-400) Neutrophils (%) (Auto) 91 % (31-73) Lymphocytes (%) (Auto) 5 % (24-48) Monocytes (%) (Auto) 4 % (0-9) Eosinophils (%) (Auto) 0 % (0-3) Basophils (%) (Auto) 0 % (0-3) Neutrophils # (Auto) 11.3 x10^3/uL (1.8-7.7) Lymphocytes # (Auto) 0.7 x10^3/uL (1.0-4.8) Monocytes # (Auto) 0.5 x10^3/uL (0.0-1.1) Eosinophils # (Auto) 0.0 x10^3/uL (0.0-0.7) Basophils # (Auto) 0.0 x10^3/uL (0.0-0.2) Sodium Level 142 mmol/L (136-145) Potassium Level 3.8 mmol/L (3.5-5.1) Chloride Level 107 mmol/L (98-107) Carbon Dioxide Level 28 mmol/L (21-32) Anion Gap 7 (6-14) Blood Urea Nitrogen 53 mg/dL (8-26) Creatinine 2.2 mg/dL (0.7-1.3) Estimated GFR (Cockcroft-Gault) 36.1 BUN/Creatinine Ratio 24 (6-20) Glucose Level 90 mg/dL (70-99) Calcium Level 8.6 mg/dL (8.5-10.1) Total Bilirubin 0.4 mg/dL (0.2-1.0) Aspartate Amino Transf (AST/SGOT) 33 U/L (15-37) Alanine Aminotransferase (ALT/SGPT) 62 U/L (16-63) Alkaline Phosphatase 70 U/L (46-116) Total Protein 6.5 g/dL (6.4-8.2) Albumin 1.7 g/dL (3.4-5.0) Albumin/Globulin Ratio 0.4 (1.0-1.7) Glucose (Fingerstick) 67 mg/dL (70-99) Laboratory Tests Test 12/04/19 11:21 12/04/19 17:45 12/04/19 21:46 12/05/19 05:00 Glucose (Fingerstick) 259 mg/dL (70-99) 263 mg/dL (70-99) 233 mg/dL (70-99) D-Dimer (Natty) 1.98 ug/mlFEU (0.00-0.50) Test 12/05/19 05:30 12/05/19 08:28 White Blood Count 12.5 x10^3/uL (4.0-11.0) Red Blood Count 3.78 x10^6/uL (4.30-5.70) Hemoglobin 11.7 g/dL (13.0-17.5) Hematocrit 35.0 % (39.0-53.0) Mean Corpuscular Volume 92 fL (79-100) Mean Corpuscular Hemoglobin 31 pg (25-35) Mean Corpuscular Hemoglobin Concent 33 g/dL (31-37) Red Cell Distribution Width 13.6 % (11.5-14.5) Platelet Count 202 x10^3/uL (140-400) Neutrophils (%) (Auto) 91 % (31-73) Lymphocytes (%) (Auto) 5 % (24-48) Monocytes (%) (Auto) 4 % (0-9) Eosinophils (%) (Auto) 0 % (0-3) Basophils (%) (Auto) 0 % (0-3) Neutrophils # (Auto) 11.3 x10^3/uL (1.8-7.7) Lymphocytes # (Auto) 0.7 x10^3/uL (1.0-4.8) Monocytes # (Auto) 0.5 x10^3/uL (0.0-1.1) Eosinophils # (Auto) 0.0 x10^3/uL (0.0-0.7) Basophils # (Auto) 0.0 x10^3/uL (0.0-0.2) Sodium Level 142 mmol/L (136-145) Potassium Level 3.8 mmol/L (3.5-5.1) Chloride Level 107 mmol/L (98-107) Carbon Dioxide Level 28 mmol/L (21-32) Anion Gap 7 (6-14) Blood Urea Nitrogen 53 mg/dL (8-26) Creatinine 2.2 mg/dL (0.7-1.3) Estimated GFR (Cockcroft-Gault) 36.1 BUN/Creatinine Ratio 24 (6-20) Glucose Level 90 mg/dL (70-99) Calcium Level 8.6 mg/dL (8.5-10.1) Total Bilirubin 0.4 mg/dL (0.2-1.0) Aspartate Amino Transf (AST/SGOT) 33 U/L (15-37) Alanine Aminotransferase (ALT/SGPT) 62 U/L (16-63) Alkaline Phosphatase 70 U/L (46-116) Total Protein 6.5 g/dL (6.4-8.2) Albumin 1.7 g/dL (3.4-5.0) Albumin/Globulin Ratio 0.4 (1.0-1.7) Glucose (Fingerstick) 67 mg/dL (70-99) Microbiology 12/01/19 Urine Culture - Final, Complete Medications Current Medications Ondansetron HCl (Zofran) 4 mg 1X ONCE IV Last administered on 11/28/19at 16:25; Start 11/28/19 at 15:30; Stop 11/28/19 at 15:36; Status DC Acetaminophen (Tylenol) 1,000 mg 1X ONCE PO Last administered on 11/28/19at 16:25; Start 11/28/19 at 15:45; Stop 11/28/19 at 16:03; Status DC Acetaminophen (Tylenol) 650 mg PRN Q6HRS PRN PO Headaches, Temp > 101.5' Last administered on 11/30/19at 08:45; Start 11/28/19 at 17:45 Lorazepam (Ativan Inj) 0.5 mg PRN Q6HRS PRN IVP ANXIETY / AGITATION; Start 11/28/19 at 17:45 Ondansetron HCl (Zofran) 4 mg PRN Q6HRS PRN IVP NAUSEA/VOMITING; Start 11/28/19 at 17:45 Famotidine (Pepcid Vial) 20 mg BID IVP Last administered on 12/03/19at 07:48; Start 11/28/19 at 21:00; Stop 12/03/19 at 15:24; Status DC Info (Icu Electrolyte Protocol) 1 ea DAILY MC ; Start 11/29/19 at 09:00; Stop 11/28/19 at 18:16; Status DC Enoxaparin Sodium (Lovenox 40mg Syringe) 150 mg Q12HR SQ ; Start 11/28/19 at 21:00; Stop 11/28/19 at 18:16; Status DC Sodium Chloride (Normal Saline Flush) 3 ml QSHIFT PRN IV AFTER MEDS AND BLOOD DRAWS; Start 11/28/19 at 17:45 Acetaminophen/ Hydrocodone Bitart (Lortab 5/325) 1 tab PRN Q4HRS PRN PO MILD PAIN, 2ND CHOICE; Start 11/28/19 at 17:45 Morphine Sulfate (Morphine Sulfate) 1 mg PRN Q1HR PRN IV PAIN; Start 11/28/19 at 17:45 Senna/Docusate Sodium (Senna Plus) 1 tab BID PO Last administered on 12/05/19 08:18; Start 11/28/19 at 21:00 Lactulose (Lactulose) 20 gm PRN Q12HR PRN PO CONSTIPATION; Start 11/28/19 at 17:45 Amlodipine Besylate (Norvasc) 5 mg DAILY PO Last administered on 12/03/19at 07:49; Start 11/29/19 at 09:00; Stop 12/04/19 at 00:25; Status DC Aspirin (Aspirin Chewable) 81 mg DAILY PO Last administered on 12/05/19 08:17; Start 11/29/19 at 09:00 Furosemide (Lasix) 20 mg DAILY PO Last administered on 12/01/19at 08:19; Start 11/29/19 at 09:00; Stop 12/01/19 at 12:52; Status DC Glipizide (Glucotrol) 2.5 mg DAILY PO Last administered on 11/30/19at 08:44; Start 11/29/19 at 09:00; Stop 12/01/19 at 08:12; Status DC Acetaminophen/ Hydrocodone Bitart (Lortab 5/325) 1 tab PRN Q6HRS PRN PO PAIN; Start 11/28/19 at 17:45; Status UNV Lisinopril (Prinivil) 40 mg DAILY PO Last administered on 12/01/19 08:19; Start 11/29/19 at 09:00; Stop 12/01/19 at 12:52; Status DC Tamsulosin HCl (Flomax) 0.4 mg DAILY PO Last administered on 12/05/19at 08:18; Start 11/29/19 at 09:00 Hydrochlorothiazide (Hydrodiuril) 25 mg DAILY PO Last administered on 12/01/19 08:17; Start 11/29/19 at 09:00; Stop 12/01/19 at 12:52; Status DC Cyclobenzaprine HCl (Flexeril) 10 mg TID PO Last administered on 11/30/19 22:16; Start 11/28/19 at 21:00; Stop 12/02/19 at 06:46; Status DC Magnesium Sulfate 50 ml @ 25 mls/hr 1X ONCE IV Last administered on 11/28/19at 19:10; Start 11/28/19 at 19:00; Stop 11/28/19 at 20:59; Status DC Zinc Sulfate (Orazinc) 220 mg DAILY PO Last administered on 12/05/19at 08:17; Start 11/29/19 at 09:00 Ascorbic Acid (Vitamin C) 500 mg Q6HRS PO Last administered on 12/04/19at 11:48; Start 11/29/19 at 00:00; Stop 12/04/19 at 14:58; Status DC Vitamin D (Vitamin D3) 1,000 unit BID PO Last administered on 12/05/19at 08:18; Start 11/28/19 at 21:00 Atorvastatin Calcium (Lipitor) 40 mg QHS PO Last administered on 12/04/19at 21:48; Start 11/28/19 at 21:00 Enoxaparin Sodium (Lovenox 80mg Syringe) 80 mg 1X ONCE SQ Last administered on 11/28/19at 19:10; Start 11/28/19 at 19:00; Stop 11/28/19 at 19:01; Status DC Enoxaparin Sodium (Lovenox 40mg Syringe) 40 mg Q12HR SQ Last administered on 11/29/19at 20:52; Start 11/29/19 at 09:00; Stop 11/30/19 at 10:00; Status DC Thiamine HCl 200 mg/Dextrose 52 ml @ 102 mls/hr Q12HR IV Last administered on 12/04/19at 09:23; Start 11/28/19 at 19:30; Stop 12/04/19 at 14:59; Status DC Potassium Chloride (Klor-Con) 40 meq 1X ONCE PO Last administered on 11/29/19at 17:15; Start 11/29/19 at 16:45; Stop 11/29/19 at 16:46; Status DC Methylprednisolone Sodium Succinate (SOLU-Medrol 125MG VIAL) 60 mg Q8HRS IV Last administered on 12/03/19at 05:38; Start 11/30/19 at 09:00; Stop 12/03/19 at 10:50; Status DC Piperacillin Sod/ Tazobactam Sod (Zosyn Per Pharmacy) 1 each PRN DAILY PRN MC SEE COMMENTS; Start 11/30/19 at 08:45 Piperacillin Sod/ Tazobactam Sod 3.375 gm/Sodium Chloride 50 ml @ 100 mls/hr Q6HRS IV Last administered on 12/05/19at 05:53; Start 11/30/19 at 12:00 Heparin Sodium (Porcine) (Heparin Sodium) 5,000 unit Q8HRS SQ Last administered on 12/04/19at 21:55; Start 11/30/19 at 14:00 Sterile Water (WATER for RESP) 1,000 ml CONT PRN INH VIA VAPOTHERM DEVICE Last administered on 12/05/19at 08:58; Start 11/30/19 at 17:30 Insulin Glargine (Lantus Syringe) 20 unit BID SQ Last administered on 12/01/19at 12:30; Start 12/01/19 at 12:30; Stop 12/01/19 at 17:33; Status DC Insulin Human Lispro (HumaLOG) 0-9 UNITS TIDWMEALS SQ Last administered on 12/01/19at 17:33; Start 12/01/19 at 12:30; Stop 12/01/19 at 21:03; Status DC Dextrose (Dextrose 50%-Water Syringe) 12.5 gm PRN Q15MIN PRN IV SEE COMMENTS; Start 12/01/19 at 12:15 Sodium Chloride 1,000 ml @ 75 mls/hr 1X ONCE IV Last administered on 12/01/19at 12:58; Start 12/01/19 at 13:00; Stop 12/02/19 at 02:19; Status DC Insulin Glargine (Lantus Syringe) 30 unit BID SQ Last administered on 12/04/19at 21:52; Start 12/01/19 at 21:00 Insulin Human Lispro (HumaLOG) 10 units TIDWMEALS SQ Last administered on 12/01/19at 17:49; Start 12/01/19 at 17:45; Stop 12/01/19 at 21:04; Status DC Insulin Human Lispro (HumaLOG) 0-9 UNITS QIDACHS SQ Last administered on 12/04/19at 21:53; Start 12/02/19 at 07:30 Insulin Human Lispro (HumaLOG) 15 units TIDWMEALS SQ Last administered on 12/04/19at 18:00; Start 12/02/19 at 08:00 Insulin Human Lispro (HumaLOG) 9 units 1X ONCE SQ Last administered on 12/01/19at 21:16; Start 12/01/19 at 21:30; Stop 12/01/19 at 21:31; Status DC Cyclobenzaprine HCl (Flexeril) 10 mg PRN TID PRN PO MUSCLE SPASMS; Start 12/02/19 at 06:45 Furosemide (Lasix) 20 mg 1X ONCE IVP ; Start 12/02/19 at 10:15; Stop 12/02/19 at 10:47; Status DC Furosemide (Lasix) 40 mg 1X ONCE IVP Last administered on 12/02/19at 11:09; Start 12/02/19 at 10:45; Stop 12/02/19 at 10:51; Status DC Sodium Chloride 1,000 ml @ 75 mls/hr [id number] IV Last administered on 12/05/19at 03:14; Start 12/02/19 at 14:30 Lactobacillus Rhamnosus (Culturelle) 1 cap BID PO Last administered on 12/05/19 08:17; Start 12/02/19 at 21:00 Methylprednisolone Sodium Succinate (SOLU-Medrol 40MG VIAL) 40 mg Q8HRS IV Last administered on 12/05/19at 05:53; Start 12/03/19 at 14:00 Famotidine (Pepcid Vial) 20 mg DAILY IVP Last administered on 12/05/19 08:18; Start 12/04/19 at 09:00 Amlodipine Besylate (Norvasc) 10 mg DAILY PO Last administered on 12/05/19 08:18; Start 12/04/19 at 09:00 Hydralazine HCl (Apresoline Inj) 10 mg PRN Q15MIN PRN IVP ELEVATED BP, SEE COMMENTS Last administered on 12/05/19at 07:43; Start 12/04/19 at 00:30 Ascorbic Acid (Vitamin C) 500 mg BID PO Last administered on 12/05/19 08:18; Start 12/04/19 at 21:00 Thiamine Mononitrate (Vitamin B-1) 100 mg BID PO Last administered on 12/05/19at 08:17; Start 12/04/19 at 21:00 Active Scripts Active [place] 5-325 Tablet (Acetaminophen/Hydrocodone Bitart) 1 Each Tablet 1 Tab PO PRN Q6HRS PRN Orphenadrine Citrate 100 Mg Tablet.er 1 Tab PO BID Amlodipine Besylate 5 Mg Tablet 5 Mg PO DAILY Reported Lisinopril 40 Mg Tablet 40 Mg PO DAILY Glipizide 5 Mg Tablet 2.5 Mg PO DAILY Hydrochlorothiazide Tablet (Hydrochlorothiazide) 12.5 Mg Tablet 25 Mg PO DAILY Furosemide 20 Mg Tablet 20 Mg PO DAILY Tamsulosin Hcl 0.4 Mg Cap.er.24h 1 Cap PO DAILY Aspirin 81 Mg Tab.chew 81 Mg PO DAILY Metformin Hcl 500 Mg Tablet 500 Mg PO DAILY Vitals/I & O Vital Sign - Last 24 Hours 12/04/19 12/04/19 12/04/19 12/04/19 11:00 11:00 12:00 12:01 Temp 97.5 97.5 Pulse 84 71 Resp 31 B/P (MAP) 136/67 (90) 124/65 (84) Pulse Ox 97 95 93 O2 Delivery vapotherm VAPOTHERM vapotherm Nasal Cannula O2 Flow Rate 40.0 40.0 40.0 40.0 12/04/19 12/04/19 12/04/19 12/04/19 13:00 14:00 15:00 15:36 Pulse 65 58 56 Resp 25 B/P (MAP) 133/74 (93) 154/69 (97) 149/71 (97) Pulse Ox 93 96 97 95 O2 Delivery vapotherm vapotherm vapotherm VAPOTHERM O2 Flow Rate 40.0 40.0 40.0 40.0 12/04/19 12/04/19 12/04/19 12/04/19 16:00 16:00 17:00 18:00 Temp 97.8 97.8 Pulse 62 67 65 Resp 24 33 B/P (MAP) 150/68 (95) 154/72 (99) 128/72 (90) Pulse Ox 95 91 94 O2 Delivery vapotherm Nasal Cannula vapotherm vapotherm O2 Flow Rate 40.0 40.0 40.0 40.0 12/04/19 12/04/19 12/04/19 12/04/19 19:00 20:00 20:00 20:43 Temp 97.9 97.9 Pulse 61 59 Resp 18 B/P (MAP) 140/84 (102) 172/77 (108) Pulse Ox 97 96 97 O2 Delivery vapotherm Nasal Cannula vapotherm VAPOTHERM O2 Flow Rate 40.0 40.0 40.0 40.0 12/04/19 12/04/19 12/04/19 12/05/19 21:00 22:00 23:00 00:00 Temp 97.8 97.8 Pulse 60 58 54 57 Resp 32 25 24 B/P (MAP) 177/81 (113) 162/75 (104) 178/87 (117) 169/77 (107) Pulse Ox 95 94 98 93 O2 Delivery vapotherm vapotherm vapotherm vapotherm O2 Flow Rate 40.0 40.0 40.0 40.0 12/05/19 12/05/19 12/05/19 12/05/19 00:00 00:24 01:00 02:00 Pulse 56 53 Resp 25 B/P (MAP) 164/72 (102) 147/69 (95) Pulse Ox 91 95 96 O2 Delivery Nasal Cannula VAPOTHERM vapotherm vapotherm O2 Flow Rate 40.0 40.0 40.0 40.0 12/05/19 12/05/19 12/05/19 12/05/19 03:00 03:30 04:00 04:27 Temp 97.7 97.7 Pulse 61 52 Resp 26 B/P (MAP) 171/83 (112) 188/87 (120) Pulse Ox 88 93 94 O2 Delivery vapotherm Nasal Cannula vapotherm VAPOTHERM O2 Flow Rate 40.0 40.0 40.0 40.0 12/05/19 12/05/19 12/05/19 12/05/19 05:00 06:00 07:00 07:43 Pulse 58 58 63 58 Resp 25 26 B/P (MAP) 169/72 (104) 174/81 (112) 181/79 (113) 181/79 Pulse Ox 90 88 90 O2 Delivery vapotherm vapotherm vapotherm O2 Flow Rate 40.0 40.0 40.0 12/05/19 12/05/19 12/05/19 12/05/19 08:00 08:00 08:18 08:49 Temp 97.6 97.6 Pulse 70 70 Resp 31 B/P (MAP) 156/71 (99) 156/71 Pulse Ox 86 82 O2 Delivery Nasal Cannula vapotherm VAPOTHERM O2 Flow Rate 40.0 40.0 40.0 12/05/19 12/05/19 09:00 10:00 Pulse 68 73 Resp 29 33 B/P (MAP) 185/70 (108) 197/103 (134) Pulse Ox 85 91 O2 Delivery vapotherm vapotherm O2 Flow Rate 40.0 40.0 Intake and Output 12/04/19 12/04/19 12/05/19 15:00 23:00 07:00 Intake Total 1010 ml 1630 ml 815 ml Output Total 1150 ml 1325 ml 975 ml Balance -140 ml 305 ml -160 ml Justicifation of Admission Dx: Justifications for Admission: Justification of Admission Dx: Yes Sepsis: Hypoxemia FRED DALEY MD Dec 05, 2019 10:42
[2019-12-05] MEDS ORDERED: FUROSEMIDE 40 MG/4 ML VIAL. IVP ONE (11:15)
--- NOTE | 2019-12-05 11:28 | PDOC ---
Renal-Progress Notes Subjective Notes Notes FEELING ABOUT THE SAME History of Present Illness Hx of present illness STABLE Vitals Vitals Vital Signs Date Time Temp Pulse Resp B/P (MAP) Pulse Ox O2 Delivery O2 Flow Rate FiO2 12/05/19 10:00 73 33 197/103 (134) 91 vapotherm 40.0 12/05/19 08:00 97.6 97.6 Weight Weight [ ] I.O. Intake and Output Intake and Output 12/05/19 07:00 Intake Total 3455 ml Output Total 3450 ml Balance 5 ml Intake Oral 1200 ml IV Total 2255 ml Output Urine Total 3450 ml # Bowel Movements 1 Labs Labs Laboratory Tests Test 12/04/19 17:45 12/04/19 21:46 12/05/19 05:00 12/05/19 05:30 Glucose (Fingerstick) 263 mg/dL (70-99) 233 mg/dL (70-99) D-Dimer (Natty) 1.98 ug/mlFEU (0.00-0.50) White Blood Count 12.5 x10^3/uL (4.0-11.0) Red Blood Count 3.78 x10^6/uL (4.30-5.70) Hemoglobin 11.7 g/dL (13.0-17.5) Hematocrit 35.0 % (39.0-53.0) Mean Corpuscular Volume 92 fL (79-100) Mean Corpuscular Hemoglobin 31 pg (25-35) Mean Corpuscular Hemoglobin Concent 33 g/dL (31-37) Red Cell Distribution Width 13.6 % (11.5-14.5) Platelet Count 202 x10^3/uL (140-400) Neutrophils (%) (Auto) 91 % (31-73) Lymphocytes (%) (Auto) 5 % (24-48) Monocytes (%) (Auto) 4 % (0-9) Eosinophils (%) (Auto) 0 % (0-3) Basophils (%) (Auto) 0 % (0-3) Neutrophils # (Auto) 11.3 x10^3/uL (1.8-7.7) Lymphocytes # (Auto) 0.7 x10^3/uL (1.0-4.8) Monocytes # (Auto) 0.5 x10^3/uL (0.0-1.1) Eosinophils # (Auto) 0.0 x10^3/uL (0.0-0.7) Basophils # (Auto) 0.0 x10^3/uL (0.0-0.2) Sodium Level 142 mmol/L (136-145) Potassium Level 3.8 mmol/L (3.5-5.1) Chloride Level 107 mmol/L (98-107) Carbon Dioxide Level 28 mmol/L (21-32) Anion Gap 7 (6-14) Blood Urea Nitrogen 53 mg/dL (8-26) Creatinine 2.2 mg/dL (0.7-1.3) Estimated GFR (Cockcroft-Gault) 36.1 BUN/Creatinine Ratio 24 (6-20) Glucose Level 90 mg/dL (70-99) Calcium Level 8.6 mg/dL (8.5-10.1) Total Bilirubin 0.4 mg/dL (0.2-1.0) Aspartate Amino Transf (AST/SGOT) 33 U/L (15-37) Alanine Aminotransferase (ALT/SGPT) 62 U/L (16-63) Alkaline Phosphatase 70 U/L (46-116) Total Protein 6.5 g/dL (6.4-8.2) Albumin 1.7 g/dL (3.4-5.0) Albumin/Globulin Ratio 0.4 (1.0-1.7) Test 12/05/19 08:28 Glucose (Fingerstick) 67 mg/dL (70-99) Micro Micro Microbiology 12/01/19 Urine Culture - Final, Complete Review of Systems Constitutional: yes: weakness, alert, oriented Ears/Nose/Throat: Yes: no symptom reported Eyes: Yes: no symptom reported Pulmonary: Yes dyspnea Cardiovascular: Yes edema Gastrointestional: Yes: no symptom reported Genitourinary: Yes: no symptom reported Musculoskeletal: Yes: muscle stiffness Skin: Yes no symptom reported Psychiatric/Neurological: Yes: no symptom reported Endocrine: Yes: no symptom reported Physical Exam General Appearance: no apparent distress, obese Skin: warm Respiratory: decreased breath sounds Heart: S1S2, RRR Abdomen: soft, bowel sounds present Genitourinary: bladder flat, hill catheter Extremities: pulses present, edema Neurology: alert, oriented, follow commands Musculoskeletal: Osteoarthritis Assessment Assessment IMP [id number] DOWN TO 2.2 CKD STAGE 3 WITH CR OF 1.3 COVID 19 PNEUMONIA ACUTE HYPOXIC RESP FAILURE MORBID OBESITY PROTEIN CALORIE MALNUTRITION HEMATURIA [place] VS COVID 19 PLAN CONT IVF'S IV LASIX ONCE TODYA VAPOTHERM MAINTAIN ADEQUATE MAP STOPPED PRESTON-I STOPPED THIAZIDE AND LASIX WILL FOLLOW ANETA CANO MD Dec 05, 2019 11:28
[2019-12-05] MEDS: INSULIN GLARGINE SYRINGE. SQ SCH ×2 (12:18→20:46)
--- NOTE | 2019-12-05 15:35 | NUR ---
SS following up with discharge planning. SS reviewed pt chart and discussed with pt RN. COVID19 positive. Pt remains on Vapotherm at this time. Pt on IV Zosyn. SS will continue to follow for discharge planning.
[2019-12-05] MEDS: ATORVASTATIN CALCIUM 40 MG TABLET. PO SCH (20:45)
[2019-12-05] MEDS ORDERED: METOPROLOL TART IMMED RELEASE 25 MG TABLET. PO PRN (22:30)
[2019-12-06] VITALS (24 sets, daily range): BP systolic 140–213; BP diastolic 60–100
[2019-12-06] MEDS: hydrALAZINE 20 MG/ML VIAL. IVP PRN ×3 (02:13→17:23)
[2019-12-06 05:59] LABS: BASO % 0 % (0-3); EOS % 0 % (0-3); HEMATOCRIT 36.4 % (39.0-53.0); HEMOGLOBIN 11.7 g/dL (13.0-17.5); LYMPH # 0.7 x10^3/uL (1.0-4.8); LYMPH % 6 % (24-48); MEAN CORPUSCULAR HEMOGLOBIN 30 pg (25-35); MEAN CORPUSCULAR HGB CONC 32 g/dL (31-37); MEAN CORPUSCULAR VOLUME 93 fL (79-100); MONO # 0.5 x10^3/uL (0.0-1.1); MONO % 4 % (0-9); NEUT # 12.2 x10^3/uL (1.8-7.7); NEUT % 91 % (31-73); PLATELET COUNT 281 x10^3/uL (140-400); RED BLOOD COUNT 3.93 x10^6/uL (4.30-5.70); RED CELL DISTRIBUTION WIDTH 13.6 % (11.5-14.5); WHITE BLOOD COUNT 13.4 x10^3/uL (4.0-11.0)
[2019-12-06] MEDS: PIPERACILLIN/TAZOBACTAM 3.375 GM in IV NORMAL SALINE 50ML 50 ML IV SCH ×3 (06:02→17:23)
[2019-12-06] MEDS: HEPARIN for SUB-Q USE 5,000 UNIT/ML VIAL. SQ SCH ×3 (06:03→22:51)
[2019-12-06] MEDS: methylPREDNISolone SOD SUCC PF 40 MG/ML VIAL. IV SCH ×3 (06:03→22:50)
[2019-12-06 06:23] LABS: CALCIUM 8.6 mg/dL (8.5-10.1); CREATININE 2.1 mg/dL (0.7-1.3); GFR 38.1; POTASSIUM 3.8 mmol/L (3.5-5.1)
[2019-12-06] MEDS: INSULIN LISPRO 300 UNITS/3 ML VIAL. SQ SCH ×7 (07:30→21:35)
[2019-12-06] MEDS: TAMSULOSIN 0.4 MG CAP.ER.24H. PO SCH (07:58)
[2019-12-06] MEDS: ASPIRIN CHEWABLE 81 MG TABLET. PO SCH (07:58)
[2019-12-06] MEDS: ASCORBIC ACID 500 MG TABLET PO SCH ×2 (07:58→20:16)
[2019-12-06] MEDS: SENNOSIDES/DOCUSATE 8.6/50MG TABLET. PO SCH ×2 (07:58→20:15)
[2019-12-06] MEDS: CHOLECALCIFEROL (VITAMIN D3) 1,000 UNIT TABLET PO SCH ×2 (07:58→20:15)
[2019-12-06] MEDS: ZINC SULFATE 220 MG CAPSULE. PO SCH (07:58)
[2019-12-06] MEDS: amLODIPine BESYLATE 10 MG TABLET PO SCH (07:58)
[2019-12-06] MEDS: LACTOBACILLUS RHAMNOSUS GG 1 CAPSULE. PO SCH ×2 (07:58→20:15)
[2019-12-06] MEDS: THIAMINE 100 MG TABLET. PO SCH ×2 (07:58→20:15)
[2019-12-06] MEDS: FAMOTIDINE 20 MG/2 ML VIAL IVP SCH (07:59)
[2019-12-06] MEDS: IV NORMAL SALINE 1000ML BAG 1,000 ML IV SCH ×2 (08:47→11:50)
--- NOTE | 2019-12-06 09:14 | PDOC ---
PROGRESS NOTES Date of Service: DATE: 12/06/19 TIME: 09:14 Chief Complaint Chief Complaint impression COVID 19 infection/ viral sepsis acute hypoxemic respiratory distress due to the above. Acute renal failure due to vasomotor nephropathy normocytic anemia Diabetes-Type II High Cholesterol Hypertension Severe protein calorie malnutrition FEN - ADA PPX - lovenox FULL CODE Dispo - inpatient 34 min cc time History of Present Illness History of Present Illness Mr Olvera is a 69yo M w/ PMHx Diabetes-Type II, High Cholesterol, Hypertension who was in his usual state of health until 2 days prior ot his admission when he was evaluated at [facility] and found to be positive for COVID 19 virus, patient was discharged and given instructions to follow up in the nearest medical center would his symptoms worsen, Today he felt worse and more dyspneic reason why he came to the ER, he initially requiring 1 liter of oxygen 11/28: Febrile 101 3 F overnight. Procalcitonin elevated, INR 1.4, WBC 9.1, Hb 11.9, platelets 189, NA 137, K3.4, BUN 39, CR 2.8, glucose 240. He is short of breath with cough. He is insistent he does not wish for convalescent FFP if his O2 needs continues to increase. Now on 4L NCO2. 11/29: Febrile to 101.5 F overnight. Creatinine increased to 4.1, he still very short of breath worsening cough, increased from 6 L nasal cannula overnight to 15 L nonrebreather facemask. I discussed with pulmonology to transferred out of the ICU. I have asked the patient to reconsider convalesce and FFP and will discuss with his family. 11/30: No acute events reported overnight, case discussed with nursing staff patient in no acute distress no complaints during my visit seems to be tolerating Vapotherm well hopefully he will be able to continue with improving, encourage proning position if tolerated 12/01: No acute events reported overnight, case discussed with nursing staff patient in no acute distress no complaints during my visit, given update patient's over the phone reassurance has been provided no new complaints seems to be status quo. Encourage more activity as tolerated in prone positioning 12/02: Discussed with nursing staff, no acute events overnight. Breathing well on Vapotherm. Continue ICU monitoring. 12/03: Patient with O2 desaturation overnight. Breathing more comfortably upright position. Currently breathing on 40 L of high flow nasal cannula with 100% O2 saturation 12/05: Patient is breathing in upright position comfortably today on Vapotherm. hold lasix Continue broad-spectrum antibiotics, steroids, vitamin C. Vitals Vitals Vital Signs Date Time Temp Pulse Resp B/P (MAP) Pulse Ox O2 Delivery O2 Flow Rate FiO2 12/06/19 08:00 97.7 73 34 188/86 (120) 96 vapotherm 40.0 97.7 Physical Exam General: Alert Heart: Regular rate, Normal S1, Normal S2 Abdomen: Normal bowel sounds, Soft Extremities: No clubbing, No cyanosis Skin: No rashes, No breakdown Labs LABS Laboratory Tests Test 12/05/19 17:12 12/05/19 20:42 12/06/19 05:30 Glucose (Fingerstick) 179 mg/dL (70-99) 183 mg/dL (70-99) White Blood Count 13.4 x10^3/uL (4.0-11.0) Red Blood Count 3.93 x10^6/uL (4.30-5.70) Hemoglobin 11.7 g/dL (13.0-17.5) Hematocrit 36.4 % (39.0-53.0) Mean Corpuscular Volume 93 fL (79-100) Mean Corpuscular Hemoglobin 30 pg (25-35) Mean Corpuscular Hemoglobin Concent 32 g/dL (31-37) Red Cell Distribution Width 13.6 % (11.5-14.5) Platelet Count 281 x10^3/uL (140-400) Neutrophils (%) (Auto) 91 % (31-73) Lymphocytes (%) (Auto) 6 % (24-48) Monocytes (%) (Auto) 4 % (0-9) Eosinophils (%) (Auto) 0 % (0-3) Basophils (%) (Auto) 0 % (0-3) Neutrophils # (Auto) 12.2 x10^3/uL (1.8-7.7) Lymphocytes # (Auto) 0.7 x10^3/uL (1.0-4.8) Monocytes # (Auto) 0.5 x10^3/uL (0.0-1.1) Eosinophils # (Auto) 0.0 x10^3/uL (0.0-0.7) Basophils # (Auto) 0.0 x10^3/uL (0.0-0.2) Sodium Level 144 mmol/L (136-145) Potassium Level 3.8 mmol/L (3.5-5.1) Chloride Level 106 mmol/L (98-107) Carbon Dioxide Level 33 mmol/L (21-32) Anion Gap 5 (6-14) Blood Urea Nitrogen 46 mg/dL (8-26) Creatinine 2.1 mg/dL (0.7-1.3) Estimated GFR (Cockcroft-Gault) 38.1 Glucose Level 110 mg/dL (70-99) Calcium Level 8.6 mg/dL (8.5-10.1) Assessment and Plan Assessmemt and Plan Problems Medical Problems: (1) ARF (acute renal failure) Status: Acute (2) Fever Status: Acute (3) Hypoxemia Status: Acute (4) Sepsis Status: Acute Comment Review of Relevant I have reviewed the following items bren (where applicable) has been applied. Labs Laboratory Tests Test 12/04/19 11:21 12/04/19 17:45 12/04/19 21:46 12/05/19 05:00 Glucose (Fingerstick) 259 mg/dL (70-99) 263 mg/dL (70-99) 233 mg/dL (70-99) D-Dimer (Natty) 1.98 ug/mlFEU (0.00-0.50) Test 12/05/19 05:30 12/05/19 08:28 12/05/19 17:12 12/05/19 20:42 White Blood Count 12.5 x10^3/uL (4.0-11.0) Red Blood Count 3.78 x10^6/uL (4.30-5.70) Hemoglobin 11.7 g/dL (13.0-17.5) Hematocrit 35.0 % (39.0-53.0) Mean Corpuscular Volume 92 fL (79-100) Mean Corpuscular Hemoglobin 31 pg (25-35) Mean Corpuscular Hemoglobin Concent 33 g/dL (31-37) Red Cell Distribution Width 13.6 % (11.5-14.5) Platelet Count 202 x10^3/uL (140-400) Neutrophils (%) (Auto) 91 % (31-73) Lymphocytes (%) (Auto) 5 % (24-48) Monocytes (%) (Auto) 4 % (0-9) Eosinophils (%) (Auto) 0 % (0-3) Basophils (%) (Auto) 0 % (0-3) Neutrophils # (Auto) 11.3 x10^3/uL (1.8-7.7) Lymphocytes # (Auto) 0.7 x10^3/uL (1.0-4.8) Monocytes # (Auto) 0.5 x10^3/uL (0.0-1.1) Eosinophils # (Auto) 0.0 x10^3/uL (0.0-0.7) Basophils # (Auto) 0.0 x10^3/uL (0.0-0.2) Sodium Level 142 mmol/L (136-145) Potassium Level 3.8 mmol/L (3.5-5.1) Chloride Level 107 mmol/L (98-107) Carbon Dioxide Level 28 mmol/L (21-32) Anion Gap 7 (6-14) Blood Urea Nitrogen 53 mg/dL (8-26) Creatinine 2.2 mg/dL (0.7-1.3) Estimated GFR (Cockcroft-Gault) 36.1 BUN/Creatinine Ratio 24 (6-20) Glucose Level 90 mg/dL (70-99) Calcium Level 8.6 mg/dL (8.5-10.1) Total Bilirubin 0.4 mg/dL (0.2-1.0) Aspartate Amino Transf (AST/SGOT) 33 U/L (15-37) Alanine Aminotransferase (ALT/SGPT) 62 U/L (16-63) Alkaline Phosphatase 70 U/L (46-116) Total Protein 6.5 g/dL (6.4-8.2) Albumin 1.7 g/dL (3.4-5.0) Albumin/Globulin Ratio 0.4 (1.0-1.7) Glucose (Fingerstick) 67 mg/dL (70-99) 179 mg/dL (70-99) 183 mg/dL (70-99) Test 12/06/19 05:30 White Blood Count 13.4 x10^3/uL (4.0-11.0) Red Blood Count 3.93 x10^6/uL (4.30-5.70) Hemoglobin 11.7 g/dL (13.0-17.5) Hematocrit 36.4 % (39.0-53.0) Mean Corpuscular Volume 93 fL (79-100) Mean Corpuscular Hemoglobin 30 pg (25-35) Mean Corpuscular Hemoglobin Concent 32 g/dL (31-37) Red Cell Distribution Width 13.6 % (11.5-14.5) Platelet Count 281 x10^3/uL (140-400) Neutrophils (%) (Auto) 91 % (31-73) Lymphocytes (%) (Auto) 6 % (24-48) Monocytes (%) (Auto) 4 % (0-9) Eosinophils (%) (Auto) 0 % (0-3) Basophils (%) (Auto) 0 % (0-3) Neutrophils # (Auto) 12.2 x10^3/uL (1.8-7.7) Lymphocytes # (Auto) 0.7 x10^3/uL (1.0-4.8) Monocytes # (Auto) 0.5 x10^3/uL (0.0-1.1) Eosinophils # (Auto) 0.0 x10^3/uL (0.0-0.7) Basophils # (Auto) 0.0 x10^3/uL (0.0-0.2) Sodium Level 144 mmol/L (136-145) Potassium Level 3.8 mmol/L (3.5-5.1) Chloride Level 106 mmol/L (98-107) Carbon Dioxide Level 33 mmol/L (21-32) Anion Gap 5 (6-14) Blood Urea Nitrogen 46 mg/dL (8-26) Creatinine 2.1 mg/dL (0.7-1.3) Estimated GFR (Cockcroft-Gault) 38.1 Glucose Level 110 mg/dL (70-99) Calcium Level 8.6 mg/dL (8.5-10.1) Laboratory Tests Test 12/05/19 17:12 12/05/19 20:42 12/06/19 05:30 Glucose (Fingerstick) 179 mg/dL (70-99) 183 mg/dL (70-99) White Blood Count 13.4 x10^3/uL (4.0-11.0) Red Blood Count 3.93 x10^6/uL (4.30-5.70) Hemoglobin 11.7 g/dL (13.0-17.5) Hematocrit 36.4 % (39.0-53.0) Mean Corpuscular Volume 93 fL (79-100) Mean Corpuscular Hemoglobin 30 pg (25-35) Mean Corpuscular Hemoglobin Concent 32 g/dL (31-37) Red Cell Distribution Width 13.6 % (11.5-14.5) Platelet Count 281 x10^3/uL (140-400) Neutrophils (%) (Auto) 91 % (31-73) Lymphocytes (%) (Auto) 6 % (24-48) Monocytes (%) (Auto) 4 % (0-9) Eosinophils (%) (Auto) 0 % (0-3) Basophils (%) (Auto) 0 % (0-3) Neutrophils # (Auto) 12.2 x10^3/uL (1.8-7.7) Lymphocytes # (Auto) 0.7 x10^3/uL (1.0-4.8) Monocytes # (Auto) 0.5 x10^3/uL (0.0-1.1) Eosinophils # (Auto) 0.0 x10^3/uL (0.0-0.7) Basophils # (Auto) 0.0 x10^3/uL (0.0-0.2) Sodium Level 144 mmol/L (136-145) Potassium Level 3.8 mmol/L (3.5-5.1) Chloride Level 106 mmol/L (98-107) Carbon Dioxide Level 33 mmol/L (21-32) Anion Gap 5 (6-14) Blood Urea Nitrogen 46 mg/dL (8-26) Creatinine 2.1 mg/dL (0.7-1.3) Estimated GFR (Cockcroft-Gault) 38.1 Glucose Level 110 mg/dL (70-99) Calcium Level 8.6 mg/dL (8.5-10.1) Microbiology 12/01/19 Urine Culture - Final, Complete Medications Current Medications Ondansetron HCl (Zofran) 4 mg 1X ONCE IV Last administered on 11/28/19at 16:25; Start 11/28/19 at 15:30; Stop 11/28/19 at 15:36; Status DC Acetaminophen (Tylenol) 1,000 mg 1X ONCE PO Last administered on 11/28/19at 16:25; Start 11/28/19 at 15:45; Stop 11/28/19 at 16:03; Status DC Acetaminophen (Tylenol) 650 mg PRN Q6HRS PRN PO Headaches, Temp > 101.5' Last administered on 11/30/19at 08:45; Start 11/28/19 at 17:45 Lorazepam (Ativan Inj) 0.5 mg PRN Q6HRS PRN IVP ANXIETY / AGITATION; Start 11/28/19 at 17:45 Ondansetron HCl (Zofran) 4 mg PRN Q6HRS PRN IVP NAUSEA/VOMITING; Start 11/28/19 at 17:45 Famotidine (Pepcid Vial) 20 mg BID IVP Last administered on 12/03/19at 07:48; Start 11/28/19 at 21:00; Stop 12/03/19 at 15:24; Status DC Info (Icu Electrolyte Protocol) 1 ea DAILY MC ; Start 11/29/19 at 09:00; Stop 11/28/19 at 18:16; Status DC Enoxaparin Sodium (Lovenox 40mg Syringe) 150 mg Q12HR SQ ; Start 11/28/19 at 21:00; Stop 11/28/19 at 18:16; Status DC Sodium Chloride (Normal Saline Flush) 3 ml QSHIFT PRN IV AFTER MEDS AND BLOOD DRAWS; Start 11/28/19 at 17:45 Acetaminophen/ Hydrocodone Bitart (Lortab 5/325) 1 tab PRN Q4HRS PRN PO MILD PAIN, 2ND CHOICE; Start 11/28/19 at 17:45 Morphine Sulfate (Morphine Sulfate) 1 mg PRN Q1HR PRN IV PAIN; Start 11/28/19 at 17:45 Senna/Docusate Sodium (Senna Plus) 1 tab BID PO Last administered on 12/06/19at 07:58; Start 11/28/19 at 21:00 Lactulose (Lactulose) 20 gm PRN Q12HR PRN PO CONSTIPATION; Start 11/28/19 at 17:45 Amlodipine Besylate (Norvasc) 5 mg DAILY PO Last administered on 12/03/19at 07:4 9; Start 11/29/19 at 09:00; Stop 12/04/19 at 00:25; Status DC Aspirin (Aspirin Chewable) 81 mg DAILY PO Last administered on 12/06/19at 07:58; Start 11/29/19 at 09:00 Furosemide (Lasix) 20 mg DAILY PO Last administered on 12/01/19at 08:19; Start 11/29/19 at 09:00; Stop 12/01/19 at 12:52; Status DC Glipizide (Glucotrol) 2.5 mg DAILY PO Last administered on 11/30/19at 08:44; Start 11/29/19 at 09:00; Stop 12/01/19 at 08:12; Status DC Acetaminophen/ Hydrocodone Bitart (Lortab 5/325) 1 tab PRN Q6HRS PRN PO PAIN; Start 11/28/19 at 17:45; Status UNV Lisinopril (Prinivil) 40 mg DAILY PO Last administered on 12/01/19at 08:19; Start 11/29/19 at 09:00; Stop 12/01/19 at 12:52; Status DC Tamsulosin HCl (Flomax) 0.4 mg DAILY PO Last administered on 12/06/19at 07:58; Start 11/29/19 at 09:00 Hydrochlorothiazide (Hydrodiuril) 25 mg DAILY PO Last administered on 12/01/19at 08:17; Start 11/29/19 at 09:00; Stop 12/01/19 at 12:52; Status DC Cyclobenzaprine HCl (Flexeril) 10 mg TID PO Last administered on 11/30/19at 22:16; Start 11/28/19 at 21:00; Stop 12/02/19 at 06:46; Status DC Magnesium Sulfate 50 ml @ 25 mls/hr 1X ONCE IV Last administered on 11/28/19at 19:10; Start 11/28/19 at 19:00; Stop 11/28/19 at 20:59; Status DC Zinc Sulfate (Orazinc) 220 mg DAILY PO Last administered on 12/06/19at 07:58; Start 11/29/19 at 09:00 Ascorbic Acid (Vitamin C) 500 mg Q6HRS PO Last administered on 12/04/19at 11:48; Start 11/29/19 at 00:00; Stop 12/04/19 at 14:58; Status DC Vitamin D (Vitamin D3) 1,000 unit BID PO Last administered on 12/06/19at 07:58; Start 11/28/19 at 21:00 Atorvastatin Calcium (Lipitor) 40 mg QHS PO Last administered on 12/05/19at 20:45; Start 11/28/19 at 21:00 Enoxaparin Sodium (Lovenox 80mg Syringe) 80 mg 1X ONCE SQ Last administered on 11/28/19at 19:10; Start 11/28/19 at 19:00; Stop 11/28/19 at 19:01; Status DC Enoxaparin Sodium (Lovenox 40mg Syringe) 40 mg Q12HR SQ Last administered on 11/29/19at 20:52; Start 11/29/19 at 09:00; Stop 11/30/19 at 10:00; Status DC Thiamine HCl 200 mg/Dextrose 52 ml @ 102 mls/hr Q12HR IV Last administered on 12/04/19at 09:23; Start 11/28/19 at 19:30; Stop 12/04/19 at 14:59; Status DC Potassium Chloride (Klor-Con) 40 meq 1X ONCE PO Last administered on 11/29/19at 17:15; Start 11/29/19 at 16:45; Stop 11/29/19 at 16:46; Status DC Methylprednisolone Sodium Succinate (SOLU-Medrol 125MG VIAL) 60 mg Q8HRS IV Last administered on 12/03/19at 05:38; Start 11/30/19 at 09:00; Stop 12/03/19 at 10:50; Status DC Piperacillin Sod/ Tazobactam Sod (Zosyn Per Pharmacy) 1 each PRN DAILY PRN MC SEE COMMENTS; Start 11/30/19 at 08:45 Piperacillin Sod/ Tazobactam Sod 3.375 gm/Sodium Chloride 50 ml @ 100 mls/hr Q6HRS IV Last administered on 12/06/19at 06:02; Start 11/30/19 at 12:00 Heparin Sodium (Porcine) (Heparin Sodium) 5,000 unit Q8HRS SQ Last administered on 12/06/19at 06:03; Start 11/30/19 at 14:00 Sterile Water (WATER for RESP) 1,000 ml CONT PRN INH VIA VAPOTHERM DEVICE Last administered on 12/05/19at 22:50; Start 11/30/19 at 17:30 Insulin Glargine (Lantus Syringe) 20 unit BID SQ Last administered on 12/01/19at 12:30; Start 12/01/19 at 12:30; Stop 12/01/19 at 17:33; Status DC Insulin Human Lispro (HumaLOG) 0-9 UNITS TIDWMEALS SQ Last administered on 12/01/19at 17:33; Start 12/01/19 at 12:30; Stop 12/01/19 at 21:03; Status DC Dextrose (Dextrose 50%-Water Syringe) 12.5 gm PRN Q15MIN PRN IV SEE COMMENTS; Start 12/01/19 at 12:15 Sodium Chloride 1,000 ml @ 75 mls/hr 1X ONCE IV Last administered on 12/01/19at 12:58; Start 12/01/19 at 13:00; Stop 12/02/19 at 02:19; Status DC Insulin Glargine (Lantus Syringe) 30 unit BID SQ Last administered on 12/05/19at 20:46; Start 12/01/19 at 21:00 Insulin Human Lispro (HumaLOG) 10 units TIDWMEALS SQ Last administered on 12/01/19at 17:49; Start 12/01/19 at 17:45; Stop 12/01/19 at 21:04; Status DC Insulin Human Lispro (HumaLOG) 0-9 UNITS QIDACHS SQ Last administered on 12/05/19at 20:47; Start 12/02/19 at 07:30 Insulin Human Lispro (HumaLOG) 15 units TIDWMEALS SQ Last administered on 12/05/19at 17:30; Start 12/02/19 at 08:00 Insulin Human Lispro (HumaLOG) 9 units 1X ONCE SQ Last administered on 12/01/19at 21:16; Start 12/01/19 at 21:30; Stop 12/01/19 at 21:31; Status DC Cyclobenzaprine HCl (Flexeril) 10 mg PRN TID PRN PO MUSCLE SPASMS; Start 12/02/19 at 06:45 Furosemide (Lasix) 20 mg 1X ONCE IVP ; Start 12/02/19 at 10:15; Stop 12/02/19 at 10:47; Status DC Furosemide (Lasix) 40 mg 1X ONCE IVP Last administered on 12/02/19 11:09; Start 12/02/19 at 10:45; Stop 12/02/19 at 10:51; Status DC Sodium Chloride 1,000 ml @ 75 mls/hr [id number] IV Last administered on 12/06/19 08:47; Start 12/02/19 at 14:30 Lactobacillus Rhamnosus (Culturelle) 1 cap BID PO Last administered on 12/06/19 07:58; Start 12/02/19 at 21:00 Methylprednisolone Sodium Succinate (SOLU-Medrol 40MG VIAL) 40 mg Q8HRS IV Last administered on 12/06/19 06:03; Start 12/03/19 at 14:00 Famotidine (Pepcid Vial) 20 mg DAILY IVP Last administered on 12/06/19 07:59; Start 12/04/19 at 09:00 Amlodipine Besylate (Norvasc) 10 mg DAILY PO Last administered on 12/06/19 07:58; Start 12/04/19 at 09:00 Hydralazine HCl (Apresoline Inj) 10 mg PRN Q15MIN PRN IVP ELEVATED BP, SEE COMMENTS Last administered on 12/06/19at 02:13; Start 12/04/19 at 00:30 Ascorbic Acid (Vitamin C) 500 mg BID PO Last administered on 12/06/19 07:58; Start 12/04/19 at 21:00 Thiamine Mononitrate (Vitamin B-1) 100 mg BID PO Last administered on 12/06/19 07:58; Start 12/04/19 at 21:00 Furosemide (Lasix) 40 mg 1X ONCE IVP Last administered on 12/05/19at 11:39; Start 12/05/19 at 11:15; Stop 12/05/19 at 11:16; Status DC Metoprolol Tartrate (Lopressor) 25 mg PRN BID PRN PO TACHYCARDIA; Start 12/05/19 at 22:30; Status Cancel Active Scripts Active Panther 5-325 Tablet (Acetaminophen/Hydrocodone Bitart) 1 Each Tablet 1 Tab PO PRN Q6HRS PRN Orphenadrine Citrate 100 Mg Tablet.er 1 Tab PO BID Amlodipine Besylate 5 Mg Tablet 5 Mg PO DAILY Reported Lisinopril 40 Mg Tablet 40 Mg PO DAILY Glipizide 5 Mg Tablet 2.5 Mg PO DAILY Hydrochlorothiazide Tablet (Hydrochlorothiazide) 12.5 Mg Tablet 25 Mg PO DAILY Furosemide 20 Mg Tablet 20 Mg PO DAILY Tamsulosin Hcl 0.4 Mg Cap.er.24h 1 Cap PO DAILY Aspirin 81 Mg Tab.chew 81 Mg PO DAILY Metformin Hcl 500 Mg Tablet 500 Mg PO DAILY Vitals/I & O Vital Sign - Last 24 Hours 12/05/19 12/05/19 12/05/19 12/05/19 10:00 11:00 11:37 12:00 Temp 98.2 98.2 Pulse 73 76 77 Resp 33 28 33 B/P (MAP) 197/103 (134) 197/103 (134) 177/61 (99) Pulse Ox 91 86 87 94 O2 Delivery vapotherm vapotherm VAPOTHERM vapotherm O2 Flow Rate 40.0 40.0 40.0 40.0 12/05/19 12/05/19 12/05/19 12/05/19 12:00 13:00 14:00 15:00 Pulse 78 72 69 Resp 32 36 28 B/P (MAP) 181/76 (111) 164/77 (106) 153/90 (111) Pulse Ox 90 93 93 O2 Delivery Nasal Cannula vapotherm vapotherm vapotherm O2 Flow Rate 40.0 40.0 40.0 40.0 12/05/19 12/05/19 12/05/19 12/05/19 15:13 16:00 16:00 16:45 Temp 97.8 97.8 Pulse 67 69 Resp 32 B/P (MAP) 181/96 (124) 181/91 Pulse Ox 90 89 O2 Delivery VAPOTHERM Nasal Cannula vapotherm O2 Flow Rate 40.0 40.0 40.0 12/05/19 12/05/19 12/05/19 12/05/19 17:00 18:00 19:00 19:40 Pulse 79 79 79 Resp 30 28 32 B/P (MAP) 126/76 (93) 178/76 (110) 164/87 (112) Pulse Ox 92 91 94 88 O2 Delivery vapotherm vapotherm vapotherm VAPOTHERM O2 Flow Rate 40.0 40.0 40.0 40.0 12/05/19 12/05/19 12/05/19 12/05/19 20:00 20:00 21:00 22:00 Temp 97.9 97.9 Pulse 74 78 76 Resp 30 32 36 B/P (MAP) 169/83 (111) 149/65 (93) 153/79 (103) Pulse Ox 94 95 96 O2 Delivery Nasal Cannula vapotherm vapotherm vapotherm O2 Flow Rate 40.0 40.0 40.0 40.0 12/05/19 12/05/19 12/06/19 12/06/19 23:00 23:40 00:00 00:00 Temp 97.8 97.8 Pulse 63 72 Resp 30 B/P (MAP) 171/86 (114) 167/70 (102) Pulse Ox 95 87 87 O2 Delivery vapotherm VAPOTHERM vapotherm Nasal Cannula O2 Flow Rate 40.0 40.0 40.0 40.0 12/06/19 12/06/19 12/06/19 12/06/19 01:00 02:00 02:13 03:00 Pulse 63 76 66 75 Resp 32 24 28 B/P (MAP) 167/67 (100) 178/100 (126) 178/100 169/71 (103) Pulse Ox 90 86 90 O2 Delivery vapotherm vapotherm vapotherm O2 Flow Rate 40.0 40.0 40.0 12/06/19 12/06/19 12/06/19 12/06/19 03:55 04:00 04:00 05:00 Temp 97.6 97.6 Pulse 85 82 Resp 28 B/P (MAP) 173/82 (112) 185/70 (108) Pulse Ox 91 94 95 O2 Delivery VAPOTHERM Nasal Cannula vapotherm vapotherm O2 Flow Rate 40.0 40.0 40.0 40.0 12/06/19 12/06/19 12/06/19 12/06/19 06:00 07:00 07:58 08:00 Temp 97.7 97.7 Pulse 79 81 81 73 Resp 30 25 34 B/P (MAP) 182/73 (109) 180/78 (112) 180/78 188/86 (120) Pulse Ox 88 87 96 O2 Delivery vapotherm vapotherm vapotherm O2 Flow Rate 40.0 40.0 40.0 Intake and Output 12/05/19 12/05/19 12/06/19 15:00 23:00 07:00 Intake Total 830 ml 952 ml 878 ml Output Total 1880 ml 1200 ml 600 ml Balance -1050 ml -248 ml 278 ml Justicifation of Admission Dx: Justifications for Admission: Justification of Admission Dx: Yes Sepsis: Hypoxemia ORI WELLER MD Dec 06, 2019 09:14
[2019-12-06] MEDS: INSULIN GLARGINE SYRINGE. SQ SCH ×2 (09:49→20:22)
--- NOTE | 2019-12-06 10:46 | PDOC ---
PULMONARY PROGRESS NOTES DATE: 12/06/19 TIME: 10:44 Subjective comfortable on vapotherm, 40 liters and 100%, No SOA, NO increased cough a-febrile, OOB today Nurse notes pt. is experiencing some mild anxiety Vitals Vital Signs Date Time Temp Pulse Resp B/P (MAP) Pulse Ox O2 Delivery O2 Flow Rate FiO2 12/06/19 10:41 89 181/73 12/06/19 10:00 32 100 vapotherm 40.0 12/06/19 08:00 97.7 97.7 Comments visual exam done OOB to chair no soa, no skin rash no edema General: Alert, No acute distress Labs Laboratory Tests Test 12/04/19 11:21 12/04/19 17:45 12/04/19 21:46 12/05/19 05:00 Glucose (Fingerstick) 259 mg/dL (70-99) 263 mg/dL (70-99) 233 mg/dL (70-99) D-Dimer (Natty) 1.98 ug/mlFEU (0.00-0.50) Test 12/05/19 05:30 12/05/19 08:28 12/05/19 17:12 12/05/19 20:42 White Blood Count 12.5 x10^3/uL (4.0-11.0) Red Blood Count 3.78 x10^6/uL (4.30-5.70) Hemoglobin 11.7 g/dL (13.0-17.5) Hematocrit 35.0 % (39.0-53.0) Mean Corpuscular Volume 92 fL (79-100) Mean Corpuscular Hemoglobin 31 pg (25-35) Mean Corpuscular Hemoglobin Concent 33 g/dL (31-37) Red Cell Distribution Width 13.6 % (11.5-14.5) Platelet Count 202 x10^3/uL (140-400) Neutrophils (%) (Auto) 91 % (31-73) Lymphocytes (%) (Auto) 5 % (24-48) Monocytes (%) (Auto) 4 % (0-9) Eosinophils (%) (Auto) 0 % (0-3) Basophils (%) (Auto) 0 % (0-3) Neutrophils # (Auto) 11.3 x10^3/uL (1.8-7.7) Lymphocytes # (Auto) 0.7 x10^3/uL (1.0-4.8) Monocytes # (Auto) 0.5 x10^3/uL (0.0-1.1) Eosinophils # (Auto) 0.0 x10^3/uL (0.0-0.7) Basophils # (Auto) 0.0 x10^3/uL (0.0-0.2) Sodium Level 142 mmol/L (136-145) Potassium Level 3.8 mmol/L (3.5-5.1) Chloride Level 107 mmol/L (98-107) Carbon Dioxide Level 28 mmol/L (21-32) Anion Gap 7 (6-14) Blood Urea Nitrogen 53 mg/dL (8-26) Creatinine 2.2 mg/dL (0.7-1.3) Estimated GFR (Cockcroft-Gault) 36.1 BUN/Creatinine Ratio 24 (6-20) Glucose Level 90 mg/dL (70-99) Calcium Level 8.6 mg/dL (8.5-10.1) Total Bilirubin 0.4 mg/dL (0.2-1.0) Aspartate Amino Transf (AST/SGOT) 33 U/L (15-37) Alanine Aminotransferase (ALT/SGPT) 62 U/L (16-63) Alkaline Phosphatase 70 U/L (46-116) Total Protein 6.5 g/dL (6.4-8.2) Albumin 1.7 g/dL (3.4-5.0) Albumin/Globulin Ratio 0.4 (1.0-1.7) Glucose (Fingerstick) 67 mg/dL (70-99) 179 mg/dL (70-99) 183 mg/dL (70-99) Test 12/06/19 05:30 White Blood Count 13.4 x10^3/uL (4.0-11.0) Red Blood Count 3.93 x10^6/uL (4.30-5.70) Hemoglobin 11.7 g/dL (13.0-17.5) Hematocrit 36.4 % (39.0-53.0) Mean Corpuscular Volume 93 fL (79-100) Mean Corpuscular Hemoglobin 30 pg (25-35) Mean Corpuscular Hemoglobin Concent 32 g/dL (31-37) Red Cell Distribution Width 13.6 % (11.5-14.5) Platelet Count 281 x10^3/uL (140-400) Neutrophils (%) (Auto) 91 % (31-73) Lymphocytes (%) (Auto) 6 % (24-48) Monocytes (%) (Auto) 4 % (0-9) Eosinophils (%) (Auto) 0 % (0-3) Basophils (%) (Auto) 0 % (0-3) Neutrophils # (Auto) 12.2 x10^3/uL (1.8-7.7) Lymphocytes # (Auto) 0.7 x10^3/uL (1.0-4.8) Monocytes # (Auto) 0.5 x10^3/uL (0.0-1.1) Eosinophils # (Auto) 0.0 x10^3/uL (0.0-0.7) Basophils # (Auto) 0.0 x10^3/uL (0.0-0.2) Sodium Level 144 mmol/L (136-145) Potassium Level 3.8 mmol/L (3.5-5.1) Chloride Level 106 mmol/L (98-107) Carbon Dioxide Level 33 mmol/L (21-32) Anion Gap 5 (6-14) Blood Urea Nitrogen 46 mg/dL (8-26) Creatinine 2.1 mg/dL (0.7-1.3) Estimated GFR (Cockcroft-Gault) 38.1 Glucose Level 110 mg/dL (70-99) Calcium Level 8.6 mg/dL (8.5-10.1) Laboratory Tests Test 12/05/19 17:12 12/05/19 20:42 12/06/19 05:30 Glucose (Fingerstick) 179 mg/dL (70-99) 183 mg/dL (70-99) White Blood Count 13.4 x10^3/uL (4.0-11.0) Red Blood Count 3.93 x10^6/uL (4.30-5.70) Hemoglobin 11.7 g/dL (13.0-17.5) Hematocrit 36.4 % (39.0-53.0) Mean Corpuscular Volume 93 fL (79-100) Mean Corpuscular Hemoglobin 30 pg (25-35) Mean Corpuscular Hemoglobin Concent 32 g/dL (31-37) Red Cell Distribution Width 13.6 % (11.5-14.5) Platelet Count 281 x10^3/uL (140-400) Neutrophils (%) (Auto) 91 % (31-73) Lymphocytes (%) (Auto) 6 % (24-48) Monocytes (%) (Auto) 4 % (0-9) Eosinophils (%) (Auto) 0 % (0-3) Basophils (%) (Auto) 0 % (0-3) Neutrophils # (Auto) 12.2 x10^3/uL (1.8-7.7) Lymphocytes # (Auto) 0.7 x10^3/uL (1.0-4.8) Monocytes # (Auto) 0.5 x10^3/uL (0.0-1.1) Eosinophils # (Auto) 0.0 x10^3/uL (0.0-0.7) Basophils # (Auto) 0.0 x10^3/uL (0.0-0.2) Sodium Level 144 mmol/L (136-145) Potassium Level 3.8 mmol/L (3.5-5.1) Chloride Level 106 mmol/L (98-107) Carbon Dioxide Level 33 mmol/L (21-32) Anion Gap 5 (6-14) Blood Urea Nitrogen 46 mg/dL (8-26) Creatinine 2.1 mg/dL (0.7-1.3) Estimated GFR (Cockcroft-Gault) 38.1 Glucose Level 110 mg/dL (70-99) Calcium Level 8.6 mg/dL (8.5-10.1) Medications Active Scripts Medications Dose Route/Sig Max Daily Dose Days Date Category [place] 5-325 Tablet (Acetaminophen/Hydrocodone Bitart) 1 Each Tablet 1 Tab PO PRN Q6HRS PRN 03/20/18 Rx Orphenadrine Citrate 100 Mg Tablet.er 1 Tab PO BID 03/20/18 Rx Amlodipine Besylate 5 Mg Tablet 5 Mg PO DAILY 02/20/17 Rx Lisinopril 40 Mg Tablet 40 Mg PO DAILY 02/18/17 Reported Glipizide 5 Mg Tablet 2.5 Mg PO DAILY 02/18/17 Reported Hydrochlorothiazide Tablet (Hydrochlorothiazide) 12.5 Mg Tablet 25 Mg PO DAILY 02/18/17 Reported Furosemide 20 Mg Tablet 20 Mg PO DAILY 02/18/17 Reported Tamsulosin Hcl 0.4 Mg Cap.er.24h 1 Cap PO DAILY 02/18/17 Reported Aspirin 81 Mg Tab.chew 81 Mg PO DAILY 02/18/17 Reported Metformin Hcl 500 Mg Tablet 500 Mg PO DAILY 02/18/17 Reported Comments CXR Impression: Bilateral perihilar infiltrates. CXR 12/05/19 Impression: Slight interval increase in the bilateral perihilar infiltrates. Impression . 1. Acute hypoxic respiratory failure secondary to COVID-19 pneumonia/acute lung injury/early acute respiratory distress syndrome.-- slow improvement 2. Abnormal chest x-ray with bilateral interstitial infiltrates, suggestive of COVID-19 pneumonia.-- 3. No significant tobacco history. 4. Acute kidney injury on top of CKD with baseline cr of 1.3--- stable 5. Severe protein-calorie malnutrition. 6. Abnormal D-dimer, likely related to COVID pneumonia. Plan . RECOMMENDATIONS: Slow clinical improvement Vapotherm.-- currently 40 Liters and 100%wean Fio2 slowly Continue steroids with taper for COVID-19 pneumonia, will need total of 10 days empiric antibiotics. Follow renal recommendations, cr improving slowly S/P plasma D-dimers Haldol for anxiety, avoid benzo if possible DVT/GI PPX -- high dose DVT PPX D/W RN and RT TOTAL CRITICAL CARE TIME: 30 minutes. YUNIER COLBY MD Dec 06, 2019 10:46
--- NOTE | 2019-12-06 12:21 | PDOC ---
Renal-Progress Notes Subjective Notes Notes NO NEW COMPLAINTS History of Present Illness Hx of present illness STABLE Vitals Vitals Vital Signs Date Time Temp Pulse Resp B/P (MAP) Pulse Ox O2 Delivery O2 Flow Rate FiO2 12/06/19 10:41 89 181/73 12/06/19 10:00 32 100 vapotherm 40.0 12/06/19 08:00 97.7 97.7 Weight Weight [ ] I.O. Intake and Output Intake and Output 12/06/19 07:00 Intake Total 2660 ml Output Total 3680 ml Balance -1020 ml Intake Oral 780 ml IV Total 1880 ml Output Urine Total 3680 ml Labs Labs Laboratory Tests Test 12/05/19 17:12 12/05/19 20:42 12/06/19 05:30 Glucose (Fingerstick) 179 mg/dL (70-99) 183 mg/dL (70-99) White Blood Count 13.4 x10^3/uL (4.0-11.0) Red Blood Count 3.93 x10^6/uL (4.30-5.70) Hemoglobin 11.7 g/dL (13.0-17.5) Hematocrit 36.4 % (39.0-53.0) Mean Corpuscular Volume 93 fL (79-100) Mean Corpuscular Hemoglobin 30 pg (25-35) Mean Corpuscular Hemoglobin Concent 32 g/dL (31-37) Red Cell Distribution Width 13.6 % (11.5-14.5) Platelet Count 281 x10^3/uL (140-400) Neutrophils (%) (Auto) 91 % (31-73) Lymphocytes (%) (Auto) 6 % (24-48) Monocytes (%) (Auto) 4 % (0-9) Eosinophils (%) (Auto) 0 % (0-3) Basophils (%) (Auto) 0 % (0-3) Neutrophils # (Auto) 12.2 x10^3/uL (1.8-7.7) Lymphocytes # (Auto) 0.7 x10^3/uL (1.0-4.8) Monocytes # (Auto) 0.5 x10^3/uL (0.0-1.1) Eosinophils # (Auto) 0.0 x10^3/uL (0.0-0.7) Basophils # (Auto) 0.0 x10^3/uL (0.0-0.2) Sodium Level 144 mmol/L (136-145) Potassium Level 3.8 mmol/L (3.5-5.1) Chloride Level 106 mmol/L (98-107) Carbon Dioxide Level 33 mmol/L (21-32) Anion Gap 5 (6-14) Blood Urea Nitrogen 46 mg/dL (8-26) Creatinine 2.1 mg/dL (0.7-1.3) Estimated GFR (Cockcroft-Gault) 38.1 Glucose Level 110 mg/dL (70-99) Calcium Level 8.6 mg/dL (8.5-10.1) Micro Micro Microbiology 12/01/19 Urine Culture - Final, Complete Review of Systems Constitutional: yes: weakness, alert, oriented Ears/Nose/Throat: Yes: no symptom reported Eyes: Yes: no symptom reported Pulmonary: Yes dyspnea Cardiovascular: Yes edema Gastrointestional: Yes: no symptom reported Genitourinary: Yes: no symptom reported Musculoskeletal: Yes: muscle stiffness Skin: Yes no symptom reported Psychiatric/Neurological: Yes: no symptom reported Endocrine: Yes: no symptom reported Physical Exam General Appearance: no apparent distress, obese Skin: warm Respiratory: decreased breath sounds Heart: S1S2, RRR Abdomen: soft, bowel sounds present Genitourinary: bladder flat, hill catheter Extremities: pulses present, edema Neurology: alert, oriented, follow commands Musculoskeletal: Osteoarthritis Assessment Assessment IMP [id number] DOWN TO 2.1 CKD STAGE 3 WITH CR OF 1.3 COVID 19 PNEUMONIA ACUTE HYPOXIC RESP FAILURE MORBID OBESITY PROTEIN CALORIE MALNUTRITION HEMATURIA [place] VS COVID 19 PLAN CONT IVF'S IV LASIX ONCE TODAY AGAIN VAPOTHERM MAINTAIN ADEQUATE MAP STOPPED PRESTON-I STOPPED THIAZIDE AND LASIX SLOWLY IMPROVING WILL FOLLOW ANETA CANO MD Dec 06, 2019 12:21
[2019-12-06] MEDS: STERILE WATER for RESP 1,000 ML BAG. INH PRN (12:27)
[2019-12-06] MEDS ORDERED: FUROSEMIDE 40 MG/4 ML VIAL. IVP ONE (12:30)
[2019-12-06] MEDS: HALOPERIDOL LACTATE 5 MG/ML VIAL. IVP PRN (20:15)
[2019-12-06] MEDS: ATORVASTATIN CALCIUM 40 MG TABLET. PO SCH (20:21)
[2019-12-07] VITALS (24 sets, daily range): BP systolic 105–182; BP diastolic 44–85
[2019-12-07] MEDS: STERILE WATER for RESP 1,000 ML BAG. INH PRN ×2 (00:30→15:37)
[2019-12-07] MEDS: PIPERACILLIN/TAZOBACTAM 3.375 GM in IV NORMAL SALINE 50ML 50 ML IV SCH ×5 (00:31→23:32)
[2019-12-07] MEDS: hydrALAZINE 20 MG/ML VIAL. IVP PRN ×2 (00:46→06:10)
[2019-12-07] MEDS: IV NORMAL SALINE 1000ML BAG 1,000 ML IV SCH ×3 (00:53→23:32)
--- NOTE | 2019-12-07 02:34 | NUR ---
Patients tachypneic, tachycardic and will desat with movement and slow to recover. Occasionally anxious and questions why he gets SOA. Can be redirected. Haldol and ativan given with some relief of restlessness and anxiety. Still able to answer questions appropriately and denies pain but unable to get comfortable. Cardene infusing but needed to be held for abx due to incompatibility and restarted once abx complete. Notified Dr. Gaytan of patient condition. No orders received but central line can be placed tomorrow. Will continue to monitor.
[2019-12-07 03:04] LABS: BASE EXCESS ABG 4 mmol/L (-3-3); HCO3 ABG 29 mmol/L (21-28); PCO2 ABG 41 mmHg (35-46); PO2 ABG 53 mmHg (65-108); SAT O2 ABG 87 % (92-99)
[2019-12-07 03:13] LABS: FIO2 ABG 100
[2019-12-07] MEDS: HALOPERIDOL LACTATE 5 MG/ML VIAL. IVP PRN (03:19)
[2019-12-07 05:47] LABS: BASO % 0 % (0-3); EOS % 0 % (0-3); HEMATOCRIT 36.2 % (39.0-53.0); HEMOGLOBIN 11.9 g/dL (13.0-17.5); LYMPH # 0.6 x10^3/uL (1.0-4.8); LYMPH % 4 % (24-48); MEAN CORPUSCULAR HEMOGLOBIN 30 pg (25-35); MEAN CORPUSCULAR HGB CONC 33 g/dL (31-37); MEAN CORPUSCULAR VOLUME 92 fL (79-100); MONO # 0.5 x10^3/uL (0.0-1.1); MONO % 3 % (0-9); NEUT # 13.3 x10^3/uL (1.8-7.7); NEUT % 93 % (31-73); PLATELET COUNT 309 x10^3/uL (140-400); RED BLOOD COUNT 3.95 x10^6/uL (4.30-5.70); RED CELL DISTRIBUTION WIDTH 13.7 % (11.5-14.5); WHITE BLOOD COUNT 14.4 x10^3/uL (4.0-11.0)
[2019-12-07 06:04] LABS: CALCIUM 8.6 mg/dL (8.5-10.1); CREATININE 1.7 mg/dL (0.7-1.3); GFR 48.6; POTASSIUM 3.5 mmol/L (3.5-5.1)
[2019-12-07] MEDS: HEPARIN for SUB-Q USE 5,000 UNIT/ML VIAL. SQ SCH (06:09)
[2019-12-07] MEDS: methylPREDNISolone SOD SUCC PF 40 MG/ML VIAL. IV SCH ×3 (06:09→21:41)
[2019-12-07] MEDS ORDERED: IV NORMAL SALINE 500ML BAG 500 ML IV PRN (07:30)
[2019-12-07] MEDS ORDERED: ATROPINE 0.5 MG/5 ML DISP.SYRINGE. IV PRN (07:30)
[2019-12-07] MEDS: INSULIN LISPRO 300 UNITS/3 ML VIAL. SQ SCH ×7 (07:30→21:00)
[2019-12-07] MEDS: TAMSULOSIN 0.4 MG CAP.ER.24H. PO SCH (08:46)
[2019-12-07] MEDS: LACTOBACILLUS RHAMNOSUS GG 1 CAPSULE. PO SCH ×2 (08:46→21:00)
[2019-12-07] MEDS: THIAMINE 100 MG TABLET. PO SCH ×2 (08:46→21:00)
[2019-12-07] MEDS: ZINC SULFATE 220 MG CAPSULE. PO SCH (08:46)
[2019-12-07] MEDS: ASCORBIC ACID 500 MG TABLET PO SCH ×2 (08:46→21:00)
[2019-12-07] MEDS: CHOLECALCIFEROL (VITAMIN D3) 1,000 UNIT TABLET PO SCH ×2 (08:46→21:00)
[2019-12-07] MEDS: SENNOSIDES/DOCUSATE 8.6/50MG TABLET. PO SCH ×2 (09:00→21:00)
[2019-12-07] MEDS: FAMOTIDINE 20 MG/2 ML VIAL IVP SCH (09:00)
[2019-12-07] MEDS: ASPIRIN CHEWABLE 81 MG TABLET. PO SCH (09:00)
[2019-12-07] MEDS ORDERED: dilTIAZem IV PUSH 25 MG/5 ML VIAL IVP ONE (09:00)
[2019-12-07] MEDS ORDERED: DILTIAZEM HCL 125 MG in IV NORMAL SALINE 100ML 100 ML IV PRN (09:00)
[2019-12-07] MEDS: DEXMEDETOMIDINE 400 MCG in IV NORMAL SALINE 100ML 96 ML IV PRN ×3 (09:00→12:52)
[2019-12-07] MEDS: INSULIN GLARGINE SYRINGE. SQ SCH ×2 (09:13→21:00)
--- NOTE | 2019-12-07 09:21 | PDOC ---
Date and Time Called for central line, for medications. Has 2 functioning peripheral IVs. On lovenox Patient is sitting upright with SpO2 83%. Patient does not want to be intubated. I do not believe that the patient can be adequately positioned for IJ placement due to his respiratory status. Best option is a PIC line. Current Medications Current Medications Ondansetron HCl (Zofran) 4 mg 1X ONCE IV Last administered on 11/28/19at 16:25; Start 11/28/19 at 15:30; Stop 11/28/19 at 15:36; Status DC Acetaminophen (Tylenol) 1,000 mg 1X ONCE PO Last administered on 11/28/19at 16:25; Start 11/28/19 at 15:45; Stop 11/28/19 at 16:03; Status DC Acetaminophen (Tylenol) 650 mg PRN Q6HRS PRN PO Headaches, Temp > 101.5' Last administered on 11/30/19at 08:45; Start 11/28/19 at 17:45 Lorazepam (Ativan Inj) 0.5 mg PRN Q6HRS PRN IVP ANXIETY / AGITATION Last administered on 12/06/19at 22:50; Start 11/28/19 at 17:45 Ondansetron HCl (Zofran) 4 mg PRN Q6HRS PRN IVP NAUSEA/VOMITING; Start 11/28/19 at 17:45 Famotidine (Pepcid Vial) 20 mg BID IVP Last administered on 12/03/19at 07:48; Start 11/28/19 at 21:00; Stop 12/03/19 at 15:24; Status DC Info (Icu Electrolyte Protocol) 1 ea DAILY MC ; Start 11/29/19 at 09:00; Stop 11/28/19 at 18:16; Status DC Enoxaparin Sodium (Lovenox 40mg Syringe) 150 mg Q12HR SQ ; Start 11/28/19 at 21:00; Stop 11/28/19 at 18:16; Status DC Sodium Chloride (Normal Saline Flush) 3 ml QSHIFT PRN IV AFTER MEDS AND BLOOD DRAWS; Start 11/28/19 at 17:45 Acetaminophen/ Hydrocodone Bitart (Lortab 5/325) 1 tab PRN Q4HRS PRN PO MILD PAIN, 2ND CHOICE; Start 11/28/19 at 17:45 Morphine Sulfate (Morphine Sulfate) 1 mg PRN Q1HR PRN IV PAIN; Start 11/28/19 at 17:45 Senna/Docusate Sodium (Senna Plus) 1 tab BID PO Last administered on 12/06/19at 20:15; Start 11/28/19 at 21:00 Lactulose (Lactulose) 20 gm PRN Q12HR PRN PO CONSTIPATION; Start 11/28/19 at 17:45 Amlodipine Besylate (Norvasc) 5 mg DAILY PO Last administered on 12/03/19at 07:49; Start 11/29/19 at 09:00; Stop 12/04/19 at 00:25; Status DC Aspirin (Aspirin Chewable) 81 mg DAILY PO Last administered on 12/06/19at 07:58; Start 11/29/19 at 09:00 Furosemide (Lasix) 20 mg DAILY PO Last administered on 12/01/19at 08:19; Start 11/29/19 at 09:00; Stop 12/01/19 at 12:52; Status DC Glipizide (Glucotrol) 2.5 mg DAILY PO Last administered on 11/30/19at 08:44; Start 11/29/19 at 09:00; Stop 12/01/19 at 08:12; Status DC Acetaminophen/ Hydrocodone Bitart (Lortab 5/325) 1 tab PRN Q6HRS PRN PO PAIN; Start 11/28/19 at 17:45; Status UNV Lisinopril (Prinivil) 40 mg DAILY PO Last administered on 12/01/19at 08:19; Start 11/29/19 at 09:00; Stop 12/01/19 at 12:52; Status DC Tamsulosin HCl (Flomax) 0.4 mg DAILY PO Last administered on 12/07/19at 08:46; Start 11/29/19 at 09:00 Hydrochlorothiazide (Hydrodiuril) 25 mg DAILY PO Last administered on 12/01/19at 08:17; Start 11/29/19 at 09:00; Stop 12/01/19 at 12:52; Status DC Cyclobenzaprine HCl (Flexeril) 10 mg TID PO Last administered on 11/30/19at 22:16; Start 11/28/19 at 21:00; Stop 12/02/19 at 06:46; Status DC Magnesium Sulfate 50 ml @ 25 mls/hr 1X ONCE IV Last administered on 11/28/19at 19:10; Start 11/28/19 at 19:00; Stop 11/28/19 at 20:59; Status DC Zinc Sulfate (Orazinc) 220 mg DAILY PO Last administered on 12/07/19at 08:46; Start 11/29/19 at 09:00 Ascorbic Acid (Vitamin C) 500 mg Q6HRS PO Last administered on 12/04/19at 11:48; Start 11/29/19 at 00:00; Stop 12/04/19 at 14:58; Status DC Vitamin D (Vitamin D3) 1,000 unit BID PO Last administered on 12/07/19at 08:46; Start 11/28/19 at 21:00 Atorvastatin Calcium (Lipitor) 40 mg QHS PO Last administered on 12/06/19at 20:21; Start 11/28/19 at 21:00 Enoxaparin Sodium (Lovenox 80mg Syringe) 80 mg 1X ONCE SQ Last administered on 11/28/19at 19:10; Start 11/28/19 at 19:00; Stop 11/28/19 at 19:01; Status DC Enoxaparin Sodium (Lovenox 40mg Syringe) 40 mg Q12HR SQ Last administered on 11/29/19at 20:52; Start 11/29/19 at 09:00; Stop 11/30/19 at 10:00; Status DC Thiamine HCl 200 mg/Dextrose 52 ml @ 102 mls/hr Q12HR IV Last administered on 12/04/19at 09:23; Start 11/28/19 at 19:30; Stop 12/04/19 at 14:59; Status DC Potassium Chloride (Klor-Con) 40 meq 1X ONCE PO Last administered on 11/29/19at 17:15; Start 11/29/19 at 16:45; Stop 11/29/19 at 16:46; Status DC Methylprednisolone Sodium Succinate (SOLU-Medrol 125MG VIAL) 60 mg Q8HRS IV Last administered on 12/03/19at 05:38; Start 11/30/19 at 09:00; Stop 12/03/19 at 10:50; Status DC Piperacillin Sod/ Tazobactam Sod (Zosyn Per Pharmacy) 1 each PRN DAILY PRN MC SEE COMMENTS; Start 11/30/19 at 08:45 Piperacillin Sod/ Tazobactam Sod 3.375 gm/Sodium Chloride 50 ml @ 100 mls/hr Q6HRS IV Last administered on 12/07/19at 06:08; Start 11/30/19 at 12:00 Heparin Sodium (Porcine) (Heparin Sodium) 5,000 unit Q8HRS SQ Last administered on 12/07/19at 06:09; Start 11/30/19 at 14:00 Sterile Water (WATER for RESP) 1,000 ml CONT PRN INH VIA VAPOTHERM DEVICE Last administered on 12/07/19at 00:30; Start 11/30/19 at 17:30 Insulin Glargine (Lantus Syringe) 20 unit BID SQ Last administered on 12/01/19at 12:30; Start 12/01/19 at 12:30; Stop 12/01/19 at 17:33; Status DC Insulin Human Lispro (HumaLOG) 0-9 UNITS TIDWMEALS SQ Last administered on 12/01/19at 17:33; Start 12/01/19 at 12:30; Stop 12/01/19 at 21:03; Status DC Dextrose (Dextrose 50%-Water Syringe) 12.5 gm PRN Q15MIN PRN IV SEE COMMENTS; Start 12/01/19 at 12:15 Sodium Chloride 1,000 ml @ 75 mls/hr 1X ONCE IV Last administered on 12/01/19at 12:58; Start 12/01/19 at 13:00; Stop 12/02/19 at 02:19; Status DC Insulin Glargine (Lantus Syringe) 30 unit BID SQ Last administered on 12/07/19at 09:13; Start 12/01/19 at 21:00 Insulin Human Lispro (HumaLOG) 10 units TIDWMEALS SQ Last administered on 12/01/19at 17:49; Start 12/01/19 at 17:45; Stop 12/01/19 at 21:04; Status DC Insulin Human Lispro (HumaLOG) 0-9 UNITS QIDACHS SQ Last administered on 12/06/19at 21:35; Start 12/02/19 at 07:30 Insulin Human Lispro (HumaLOG) 15 units TIDWMEALS SQ Last administered on 12/06/19 17:31; Start 12/02/19 at 08:00 Insulin Human Lispro (HumaLOG) 9 units 1X ONCE SQ Last administered on 12/01/19at 21:16; Start 12/01/19 at 21:30; Stop 12/01/19 at 21:31; Status DC Cyclobenzaprine HCl (Flexeril) 10 mg PRN TID PRN PO MUSCLE SPASMS Last administered on 12/06/19at 20:16; Start 12/02/19 at 06:45 Furosemide (Lasix) 20 mg 1X ONCE IVP ; Start 12/02/19 at 10:15; Stop 12/02/19 at 10:47; Status DC Furosemide (Lasix) 40 mg 1X ONCE IVP Last administered on 12/02/19at 11:09; Start 12/02/19 at 10:45; Stop 12/02/19 at 10:51; Status DC Sodium Chloride 1,000 ml @ 75 mls/hr [id number] IV Last administered on 12/07/19at 00:53; Start 12/02/19 at 14:30 Lactobacillus Rhamnosus (Culturelle) 1 cap BID PO Last administered on 08:46; Start 12/02/19 at 21:00 Methylprednisolone Sodium Succinate (SOLU-Medrol 40MG VIAL) 40 mg Q8HRS IV Last administered on 12/07/19at 06:09; Start 12/03/19 at 14:00 Famotidine (Pepcid Vial) 20 mg DAILY IVP Last administered on 12/06/19at 07:59; Start 12/04/19 at 09:00 Amlodipine Besylate (Norvasc) 10 mg DAILY PO Last administered on 12/06/19at 07:58; Start 12/04/19 at 09:00; Stop 12/06/19 at 18:39; Status DC Hydralazine HCl (Apresoline Inj) 10 mg PRN Q15MIN PRN IVP ELEVATED BP, SEE COMMENTS Last administered on 12/06/19at 10:41; Start 12/04/19 at 00:30; Stop 12/06/19 at 15:23; Status DC Ascorbic Acid (Vitamin C) 500 mg BID PO Last administered on 12/07/19at 08:46; Start 12/04/19 at 21:00 Thiamine Mononitrate (Vitamin B-1) 100 mg BID PO Last administered on 12/07/19at 08:46; Start 12/04/19 at 21:00 Furosemide (Lasix) 40 mg 1X ONCE IVP Last administered on 12/05/19at 11:39; Start 12/05/19 at 11:15; Stop 12/05/19 at 11:16; Status DC Metoprolol Tartrate (Lopressor) 25 mg PRN BID PRN PO TACHYCARDIA; Start 12/05/19 at 22:30; Status Cancel Haloperidol Lactate (Haldol Inj) 2.5 mg PRN Q6HRS PRN IVP Anxiety Last administered on 12/07/19at 03:19; Start 12/06/19 at 10:45 Furosemide (Lasix) 40 mg 1X ONCE IVP Last administered on 12/06/19at 12:50; Start 12/06/19 at 12:30; Stop 12/06/19 at 12:31; Status DC Hydralazine HCl (Apresoline Inj) 20 mg PRN Q4HRS PRN IVP ELEVATED BP, SEE COM MENTS Last administered on 12/07/19at 06:10; Start 12/06/19 at 15:30 Nicardipine HCl 50 mg/Sodium Chloride 250 ml @ 25 mls/hr CONT PRN IV SEE I/O RECORD Last administered on 12/07/19at 00:47; Start 12/06/19 at 18:45 Dexmedetomidine HCl 400 mcg/ Sodium Chloride 100 ml @ 7.23 mls/hr CONT PRN IV SEE COMMENTS; Start 12/07/19 at 07:30 Sodium Chloride 500 ml @ 500 mls/hr 1X PRN PRN IV SEE COMMENTS; Start 12/07/19 at 07:30 Atropine Sulfate (ATROPINE 0.5mg SYRINGE) 0.5 mg PRN Q5MIN PRN IV SEE COMMENTS; Start 12/07/19 at 07:30 Diltiazem HCl (Cardizem Iv Push) 10 mg 1X ONCE IVP Last administered on 12/07/19at 09:13; Start 12/07/19 at 09:00; Stop 12/07/19 at 09:01; Status DC Diltiazem HCl 125 mg/Sodium Chloride 125 ml @ 5 mls/hr CONT PRN IV SEE I/O RECORD; Start 12/07/19 at 09:00 Active Scripts Active [place] 5-325 Tablet (Acetaminophen/Hydrocodone Bitart) 1 Each Tablet 1 Tab PO PRN Q6HRS PRN Orphenadrine Citrate 100 Mg Tablet.er 1 Tab PO BID Amlodipine Besylate 5 Mg Tablet 5 Mg PO DAILY Reported Lisinopril 40 Mg Tablet 40 Mg PO DAILY Glipizide 5 Mg Tablet 2.5 Mg PO DAILY Hydrochlorothiazide Tablet (Hydrochlorothiazide) 12.5 Mg Tablet 25 Mg PO DAILY Furosemide 20 Mg Tablet 20 Mg PO DAILY Tamsulosin Hcl 0.4 Mg Cap.er.24h 1 Cap PO DAILY Aspirin 81 Mg Tab.chew 81 Mg PO DAILY Metformin Hcl 500 Mg Tablet 500 Mg PO DAILY Pertinent Labs/Test Laboratory Tests Test 12/05/19 17:12 12/05/19 20:42 12/06/19 05:30 12/06/19 12:54 Glucose (Fingerstick) 179 mg/dL (70-99) 183 mg/dL (70-99) 187 mg/dL (70-99) White Blood Count 13.4 x10^3/uL (4.0-11.0) Red Blood Count 3.93 x10^6/uL (4.30-5.70) Hemoglobin 11.7 g/dL (13.0-17.5) Hematocrit 36.4 % (39.0-53.0) Mean Corpuscular Volume 93 fL (79-100) Mean Corpuscular Hemoglobin 30 pg (25-35) Mean Corpuscular Hemoglobin Concent 32 g/dL (31-37) Red Cell Distribution Width 13.6 % (11.5-14.5) Platelet Count 281 x10^3/uL (140-400) Neutrophils (%) (Auto) 91 % (31-73) Lymphocytes (%) (Auto) 6 % (24-48) Monocytes (%) (Auto) 4 % (0-9) Eosinophils (%) (Auto) 0 % (0-3) Basophils (%) (Auto) 0 % (0-3) Neutrophils # (Auto) 12.2 x10^3/uL (1.8-7.7) Lymphocytes # (Auto) 0.7 x10^3/uL (1.0-4.8) Monocytes # (Auto) 0.5 x10^3/uL (0.0-1.1) Eosinophils # (Auto) 0.0 x10^3/uL (0.0-0.7) Basophils # (Auto) 0.0 x10^3/uL (0.0-0.2) Sodium Level 144 mmol/L (136-145) Potassium Level 3.8 mmol/L (3.5-5.1) Chloride Level 106 mmol/L (98-107) Carbon Dioxide Level 33 mmol/L (21-32) Anion Gap 5 (6-14) Blood Urea Nitrogen 46 mg/dL (8-26) Creatinine 2.1 mg/dL (0.7-1.3) Estimated GFR (Cockcroft-Gault) 38.1 Glucose Level 110 mg/dL (70-99) Calcium Level 8.6 mg/dL (8.5-10.1) Test 12/06/19 17:28 12/07/19 02:59 12/07/19 05:30 Glucose (Fingerstick) 212 mg/dL (70-99) O2 Saturation 87 % (92-99) Arterial Blood pH 7.46 (7.35-7.45) Arterial Blood pCO2 at Patient Temp 41 mmHg (35-46) Arterial Blood pO2 at Patient Temp 53 mmHg (65-108) Arterial Blood HCO3 29 mmol/L (21-28) Arterial Blood Base Excess 4 mmol/L (-3-3) FiO2 100 White Blood Count 14.4 x10^3/uL (4.0-11.0) Red Blood Count 3.95 x10^6/uL (4.30-5.70) Hemoglobin 11.9 g/dL (13.0-17.5) Hematocrit 36.2 % (39.0-53.0) Mean Corpuscular Volume 92 fL (79-100) Mean Corpuscular Hemoglobin 30 pg (25-35) Mean Corpuscular Hemoglobin Concent 33 g/dL (31-37) Red Cell Distribution Width 13.7 % (11.5-14.5) Platelet Count 309 x10^3/uL (140-400) Neutrophils (%) (Auto) 93 % (31-73) Lymphocytes (%) (Auto) 4 % (24-48) Monocytes (%) (Auto) 3 % (0-9) Eosinophils (%) (Auto) 0 % (0-3) Basophils (%) (Auto) 0 % (0-3) Neutrophils # (Auto) 13.3 x10^3/uL (1.8-7.7) Lymphocytes # (Auto) 0.6 x10^3/uL (1.0-4.8) Monocytes # (Auto) 0.5 x10^3/uL (0.0-1.1) Eosinophils # (Auto) 0.0 x10^3/uL (0.0-0.7) Basophils # (Auto) 0.0 x10^3/uL (0.0-0.2) Sodium Level 146 mmol/L (136-145) Potassium Level 3.5 mmol/L (3.5-5.1) Chloride Level 108 mmol/L (98-107) Carbon Dioxide Level 31 mmol/L (21-32) Anion Gap 7 (6-14) Blood Urea Nitrogen 36 mg/dL (8-26) Creatinine 1.7 mg/dL (0.7-1.3) Estimated GFR (Cockcroft-Gault) 48.6 Glucose Level 76 mg/dL (70-99) Calcium Level 8.6 mg/dL (8.5-10.1) Magnesium Level 1.7 mg/dL (1.8-2.4) Laboratory Tests Test 12/06/19 12:54 12/06/19 17:28 12/07/19 02:59 12/07/19 05:30 Glucose (Fingerstick) 187 mg/dL (70-99) 212 mg/dL (70-99) O2 Saturation 87 % (92-99) Arterial Blood pH 7.46 (7.35-7.45) Arterial Blood pCO2 at Patient Temp 41 mmHg (35-46) Arterial Blood pO2 at Patient Temp 53 mmHg (65-108) Arterial Blood HCO3 29 mmol/L (21-28) Arterial Blood Base Excess 4 mmol/L (-3-3) FiO2 100 White Blood Count 14.4 x10^3/uL (4.0-11.0) Red Blood Count 3.95 x10^6/uL (4.30-5.70) Hemoglobin 11.9 g/dL (13.0-17.5) Hematocrit 36.2 % (39.0-53.0) Mean Corpuscular Volume 92 fL (79-100) Mean Corpuscular Hemoglobin 30 pg (25-35) Mean Corpuscular Hemoglobin Concent 33 g/dL (31-37) Red Cell Distribution Width 13.7 % (11.5-14.5) Platelet Count 309 x10^3/uL (140-400) Neutrophils (%) (Auto) 93 % (31-73) Lymphocytes (%) (Auto) 4 % (24-48) Monocytes (%) (Auto) 3 % (0-9) Eosinophils (%) (Auto) 0 % (0-3) Basophils (%) (Auto) 0 % (0-3) Neutrophils # (Auto) 13.3 x10^3/uL (1.8-7.7) Lymphocytes # (Auto) 0.6 x10^3/uL (1.0-4.8) Monocytes # (Auto) 0.5 x10^3/uL (0.0-1.1) Eosinophils # (Auto) 0.0 x10^3/uL (0.0-0.7) Basophils # (Auto) 0.0 x10^3/uL (0.0-0.2) Sodium Level 146 mmol/L (136-145) Potassium Level 3.5 mmol/L (3.5-5.1) Chloride Level 108 mmol/L (98-107) Carbon Dioxide Level 31 mmol/L (21-32) Anion Gap 7 (6-14) Blood Urea Nitrogen 36 mg/dL (8-26) Creatinine 1.7 mg/dL (0.7-1.3) Estimated GFR (Cockcroft-Gault) 48.6 Glucose Level 76 mg/dL (70-99) Calcium Level 8.6 mg/dL (8.5-10.1) Magnesium Level 1.7 mg/dL (1.8-2.4) LAST VITALS Vital Signs Date Time Temp Pulse Resp B/P (MAP) Pulse Ox O2 Delivery O2 Flow Rate FiO2 12/07/19 09:13 130 111/61 12/07/19 08:33 91 VAPOTHERM 40.0 12/07/19 07:00 33 12/07/19 04:00 97.8 97.8 KEI GARCIA MD Dec 07, 2019 09:21
[2019-12-07] MEDS ORDERED: MAGNESIUM SULFATE 2GM 50 ML IV ONE (09:45)
--- NOTE | 2019-12-07 10:40 | PDOC ---
PULMONARY PROGRESS NOTES DATE: 12/07/19 TIME: 10:06 Subjective vapotherm, 40 liters and 100%,having hypoxia AFIB RVR overnight, now on cardizem gtt remains on cardene gtt for HTN a-febrile overnight Reports anxiety and SOB, denies cough Vitals Vital Signs Date Time Temp Pulse Resp B/P (MAP) Pulse Ox O2 Delivery O2 Flow Rate FiO2 12/07/19 09:13 130 111/61 12/07/19 08:33 91 VAPOTHERM 40.0 12/07/19 07:00 33 12/07/19 04:00 97.8 97.8 Comments visual exam done Vapotherm w/ mild hypoxia AFIB RVR HTN mild distress no edema General: Alert, No acute distress Labs Laboratory Tests Test 12/05/19 17:12 12/05/19 20:42 12/06/19 05:30 12/06/19 12:54 Glucose (Fingerstick) 179 mg/dL (70-99) 183 mg/dL (70-99) 187 mg/dL (70-99) White Blood Count 13.4 x10^3/uL (4.0-11.0) Red Blood Count 3.93 x10^6/uL (4.30-5.70) Hemoglobin 11.7 g/dL (13.0-17.5) Hematocrit 36.4 % (39.0-53.0) Mean Corpuscular Volume 93 fL (79-100) Mean Corpuscular Hemoglobin 30 pg (25-35) Mean Corpuscular Hemoglobin Concent 32 g/dL (31-37) Red Cell Distribution Width 13.6 % (11.5-14.5) Platelet Count 281 x10^3/uL (140-400) Neutrophils (%) (Auto) 91 % (31-73) Lymphocytes (%) (Auto) 6 % (24-48) Monocytes (%) (Auto) 4 % (0-9) Eosinophils (%) (Auto) 0 % (0-3) Basophils (%) (Auto) 0 % (0-3) Neutrophils # (Auto) 12.2 x10^3/uL (1.8-7.7) Lymphocytes # (Auto) 0.7 x10^3/uL (1.0-4.8) Monocytes # (Auto) 0.5 x10^3/uL (0.0-1.1) Eosinophils # (Auto) 0.0 x10^3/uL (0.0-0.7) Basophils # (Auto) 0.0 x10^3/uL (0.0-0.2) Sodium Level 144 mmol/L (136-145) Potassium Level 3.8 mmol/L (3.5-5.1) Chloride Level 106 mmol/L (98-107) Carbon Dioxide Level 33 mmol/L (21-32) Anion Gap 5 (6-14) Blood Urea Nitrogen 46 mg/dL (8-26) Creatinine 2.1 mg/dL (0.7-1.3) Estimated GFR (Cockcroft-Gault) 38.1 Glucose Level 110 mg/dL (70-99) Calcium Level 8.6 mg/dL (8.5-10.1) Test 12/06/19 17:28 12/07/19 02:59 12/07/19 05:30 Glucose (Fingerstick) 212 mg/dL (70-99) O2 Saturation 87 % (92-99) Arterial Blood pH 7.46 (7.35-7.45) Arterial Blood pCO2 at Patient Temp 41 mmHg (35-46) Arterial Blood pO2 at Patient Temp 53 mmHg (65-108) Arterial Blood HCO3 29 mmol/L (21-28) Arterial Blood Base Excess 4 mmol/L (-3-3) FiO2 100 White Blood Count 14.4 x10^3/uL (4.0-11.0) Red Blood Count 3.95 x10^6/uL (4.30-5.70) Hemoglobin 11.9 g/dL (13.0-17.5) Hematocrit 36.2 % (39.0-53.0) Mean Corpuscular Volume 92 fL (79-100) Mean Corpuscular Hemoglobin 30 pg (25-35) Mean Corpuscular Hemoglobin Concent 33 g/dL (31-37) Red Cell Distribution Width 13.7 % (11.5-14.5) Platelet Count 309 x10^3/uL (140-400) Neutrophils (%) (Auto) 93 % (31-73) Lymphocytes (%) (Auto) 4 % (24-48) Monocytes (%) (Auto) 3 % (0-9) Eosinophils (%) (Auto) 0 % (0-3) Basophils (%) (Auto) 0 % (0-3) Neutrophils # (Auto) 13.3 x10^3/uL (1.8-7.7) Lymphocytes # (Auto) 0.6 x10^3/uL (1.0-4.8) Monocytes # (Auto) 0.5 x10^3/uL (0.0-1.1) Eosinophils # (Auto) 0.0 x10^3/uL (0.0-0.7) Basophils # (Auto) 0.0 x10^3/uL (0.0-0.2) Sodium Level 146 mmol/L (136-145) Potassium Level 3.5 mmol/L (3.5-5.1) Chloride Level 108 mmol/L (98-107) Carbon Dioxide Level 31 mmol/L (21-32) Anion Gap 7 (6-14) Blood Urea Nitrogen 36 mg/dL (8-26) Creatinine 1.7 mg/dL (0.7-1.3) Estimated GFR (Cockcroft-Gault) 48.6 Glucose Level 76 mg/dL (70-99) Calcium Level 8.6 mg/dL (8.5-10.1) Magnesium Level 1.7 mg/dL (1.8-2.4) Laboratory Tests Test 12/06/19 12:54 12/06/19 17:28 12/07/19 02:59 12/07/19 05:30 Glucose (Fingerstick) 187 mg/dL (70-99) 212 mg/dL (70-99) O2 Saturation 87 % (92-99) Arterial Blood pH 7.46 (7.35-7.45) Arterial Blood pCO2 at Patient Temp 41 mmHg (35-46) Arterial Blood pO2 at Patient Temp 53 mmHg (65-108) Arterial Blood HCO3 29 mmol/L (21-28) Arterial Blood Base Excess 4 mmol/L (-3-3) FiO2 100 White Blood Count 14.4 x10^3/uL (4.0-11.0) Red Blood Count 3.95 x10^6/uL (4.30-5.70) Hemoglobin 11.9 g/dL (13.0-17.5) Hematocrit 36.2 % (39.0-53.0) Mean Corpuscular Volume 92 fL (79-100) Mean Corpuscular Hemoglobin 30 pg (25-35) Mean Corpuscular Hemoglobin Concent 33 g/dL (31-37) Red Cell Distribution Width 13.7 % (11.5-14.5) Platelet Count 309 x10^3/uL (140-400) Neutrophils (%) (Auto) 93 % (31-73) Lymphocytes (%) (Auto) 4 % (24-48) Monocytes (%) (Auto) 3 % (0-9) Eosinophils (%) (Auto) 0 % (0-3) Basophils (%) (Auto) 0 % (0-3) Neutrophils # (Auto) 13.3 x10^3/uL (1.8-7.7) Lymphocytes # (Auto) 0.6 x10^3/uL (1.0-4.8) Monocytes # (Auto) 0.5 x10^3/uL (0.0-1.1) Eosinophils # (Auto) 0.0 x10^3/uL (0.0-0.7) Basophils # (Auto) 0.0 x10^3/uL (0.0-0.2) Sodium Level 146 mmol/L (136-145) Potassium Level 3.5 mmol/L (3.5-5.1) Chloride Level 108 mmol/L (98-107) Carbon Dioxide Level 31 mmol/L (21-32) Anion Gap 7 (6-14) Blood Urea Nitrogen 36 mg/dL (8-26) Creatinine 1.7 mg/dL (0.7-1.3) Estimated GFR (Cockcroft-Gault) 48.6 Glucose Level 76 mg/dL (70-99) Calcium Level 8.6 mg/dL (8.5-10.1) Magnesium Level 1.7 mg/dL (1.8-2.4) Medications Active Scripts Medications Dose Route/Sig Max Daily Dose Days Date Category [place] 5-325 Tablet (Acetaminophen/Hydrocodone Bitart) 1 Each Tablet 1 Tab PO PRN Q6HRS PRN 03/20/18 Rx Orphenadrine Citrate 100 Mg Tablet.er 1 Tab PO BID 03/20/18 Rx Amlodipine Besylate 5 Mg Tablet 5 Mg PO DAILY 02/20/17 Rx Lisinopril 40 Mg Tablet 40 Mg PO DAILY 02/18/17 Reported Glipizide 5 Mg Tablet 2.5 Mg PO DAILY 02/18/17 Reported Hydrochlorothiazide Tablet (Hydrochlorothiazide) 12.5 Mg Tablet 25 Mg PO DAILY 02/18/17 Reported Furosemide 20 Mg Tablet 20 Mg PO DAILY 02/18/17 Reported Tamsulosin Hcl 0.4 Mg Cap.er.24h 1 Cap PO DAILY 02/18/17 Reported Aspirin 81 Mg Tab.chew 81 Mg PO DAILY 02/18/17 Reported Metformin Hcl 500 Mg Tablet 500 Mg PO DAILY 02/18/17 Reported Comments CXR Impression: Bilateral perihilar infiltrates. CXR 12/05/19 Impression: Slight interval increase in the bilateral perihilar infiltrates. Impression . 1. Acute hypoxic respiratory failure secondary to COVID-19 pneumonia/acute lung injury/early acute respiratory distress syndrome. 2. Abnormal chest x-ray with bilateral interstitial infiltrates, suggestive of COVID-19 pneumonia.-- 3. No significant tobacco history. 4. Acute kidney injury on top of CKD with baseline cr of 1.3--- stable 5. Severe protein-calorie malnutrition. 6. Abnormal D-dimer, likely related to COVID pneumonia. 7. New onset A. fib with rapid ventricular response Plan . RECOMMENDATIONS: Consult cardiology, patient now in sinus rhythm, will initiate full dose anticoagulation Vapotherm.-- currently 40 Liters and 100%, not ready to wean oxygen-- will start BIPAP if continued hypoxia, patient did not tolerate BiPAP AFIB RVR -- now on cardizem gtt Continue steroids with taper for COVID-19 pneumonia, will need total of 10 days empiric antibiotics Follow renal recommendations, cr improving slowly S/P plasma D-dimers precedex for anxiety, will place end-tidal CO2 monitor DVT/GI PPX -- high dose DVT PPX -- will switch SQ heparin to IV D/W RN and RT TOTAL CRITICAL CARE TIME: 30 minutes. YUNIER COLBY MD Dec 07, 2019 10:40
[2019-12-07] MEDS ORDERED: HEPARIN for IV BOLUS 10,000 UNIT/10 ML VIAL. IV PRN ×2 (10:45)
--- NOTE | 2019-12-07 11:03 | PDOC ---
PROGRESS NOTES Date of Service: DATE: 12/07/19 TIME: 11:03 Chief Complaint Chief Complaint impression COVID 19 infection/ viral sepsis acute hypoxemic respiratory distress due to the above. Acute renal failure due to vasomotor nephropathy normocytic anemia Diabetes-Type II High Cholesterol Hypertension Severe protein calorie malnutrition FEN - ADA PPX - lovenox FULL CODE Dispo - inpatient 34 min cc time History of Present Illness History of Present Illness Mr Olvera is a 69yo M w/ PMHx Diabetes-Type II, High Cholesterol, Hypertension who was in his usual state of health until 2 days prior ot his admission when he was evaluated at [facility] and found to be positive for COVID 19 virus, patient was discharged and given instructions to follow up in the nearest medical center would his symptoms worsen, Today he felt worse and more dyspneic reason why he came to the ER, he initially requiring 1 liter of oxygen 11/28: Febrile 101 3 F overnight. Procalcitonin elevated, INR 1.4, WBC 9.1, Hb 11.9, platelets 189, NA 137, K3.4, BUN 39, CR 2.8, glucose 240. He is short of breath with cough. He is insistent he does not wish for convalescent FFP if his O2 needs continues to increase. Now on 4L NCO2. 11/29: Febrile to 101.5 F overnight. Creatinine increased to 4.1, he still very short of breath worsening cough, increased from 6 L nasal cannula overnight to 15 L nonrebreather facemask. I discussed with pulmonology to transferred out of the ICU. I have asked the patient to reconsider convalesce and FFP and will discuss with his family. 11/30: No acute events reported overnight, case discussed with nursing staff patient in no acute distress no complaints during my visit seems to be tolerating Vapotherm well hopefully he will be able to continue with improving, encourage proning position if tolerated 12/01: No acute events reported overnight, case discussed with nursing staff patient in no acute distress no complaints during my visit, given update patient's over the phone reassurance has been provided no new complaints seems to be status quo. Encourage more activity as tolerated in prone positioning 12/02: Discussed with nursing staff, no acute events overnight. Breathing well on Vapotherm. Continue ICU monitoring. 12/03: Patient with O2 desaturation overnight. Breathing more comfortably upright position. Currently breathing on 40 L of high flow nasal cannula with 100% O2 saturation 12/05: Patient is breathing in upright position comfortably today on Vapotherm. hold lasix Continue broad-spectrum antibiotics, steroids, vitamin C. Vitals Vitals Vital Signs Date Time Temp Pulse Resp B/P (MAP) Pulse Ox O2 Delivery O2 Flow Rate FiO2 12/07/19 10:00 93 28 135/77 (96) 90 vapotherm 40.0 12/07/19 08:00 98.1 98.1 Physical Exam General: Alert Heart: Regular rate, Normal S1, Normal S2 Abdomen: Normal bowel sounds, Soft Extremities: No clubbing, No cyanosis Skin: No rashes, No breakdown Labs LABS Laboratory Tests Test 12/06/19 12:54 12/06/19 17:28 12/07/19 02:59 12/07/19 05:30 Glucose (Fingerstick) 187 mg/dL (70-99) 212 mg/dL (70-99) O2 Saturation 87 % (92-99) Arterial Blood pH 7.46 (7.35-7.45) Arterial Blood pCO2 at Patient Temp 41 mmHg (35-46) Arterial Blood pO2 at Patient Temp 53 mmHg (65-108) Arterial Blood HCO3 29 mmol/L (21-28) Arterial Blood Base Excess 4 mmol/L (-3-3) FiO2 100 White Blood Count 14.4 x10^3/uL (4.0-11.0) Red Blood Count 3.95 x10^6/uL (4.30-5.70) Hemoglobin 11.9 g/dL (13.0-17.5) Hematocrit 36.2 % (39.0-53.0) Mean Corpuscular Volume 92 fL (79-100) Mean Corpuscular Hemoglobin 30 pg (25-35) Mean Corpuscular Hemoglobin Concent 33 g/dL (31-37) Red Cell Distribution Width 13.7 % (11.5-14.5) Platelet Count 309 x10^3/uL (140-400) Neutrophils (%) (Auto) 93 % (31-73) Lymphocytes (%) (Auto) 4 % (24-48) Monocytes (%) (Auto) 3 % (0-9) Eosinophils (%) (Auto) 0 % (0-3) Basophils (%) (Auto) 0 % (0-3) Neutrophils # (Auto) 13.3 x10^3/uL (1.8-7.7) Lymphocytes # (Auto) 0.6 x10^3/uL (1.0-4.8) Monocytes # (Auto) 0.5 x10^3/uL (0.0-1.1) Eosinophils # (Auto) 0.0 x10^3/uL (0.0-0.7) Basophils # (Auto) 0.0 x10^3/uL (0.0-0.2) Sodium Level 146 mmol/L (136-145) Potassium Level 3.5 mmol/L (3.5-5.1) Chloride Level 108 mmol/L (98-107) Carbon Dioxide Level 31 mmol/L (21-32) Anion Gap 7 (6-14) Blood Urea Nitrogen 36 mg/dL (8-26) Creatinine 1.7 mg/dL (0.7-1.3) Estimated GFR (Cockcroft-Gault) 48.6 Glucose Level 76 mg/dL (70-99) Calcium Level 8.6 mg/dL (8.5-10.1) Magnesium Level 1.7 mg/dL (1.8-2.4) Assessment and Plan Assessmemt and Plan Problems Medical Problems: (1) ARF (acute renal failure) Status: Acute (2) Fever Status: Acute (3) Hypoxemia Status: Acute (4) Sepsis Status: Acute Comment Review of Relevant I have reviewed the following items bren (where applicable) has been applied. Labs Laboratory Tests Test 12/05/19 17:12 12/05/19 20:42 12/06/19 05:30 12/06/19 12:54 Glucose (Fingerstick) 179 mg/dL (70-99) 183 mg/dL (70-99) 187 mg/dL (70-99) White Blood Count 13.4 x10^3/uL (4.0-11.0) Red Blood Count 3.93 x10^6/uL (4.30-5.70) Hemoglobin 11.7 g/dL (13.0-17.5) Hematocrit 36.4 % (39.0-53.0) Mean Corpuscular Volume 93 fL (79-100) Mean Corpuscular Hemoglobin 30 pg (25-35) Mean Corpuscular Hemoglobin Concent 32 g/dL (31-37) Red Cell Distribution Width 13.6 % (11.5-14.5) Platelet Count 281 x10^3/uL (140-400) Neutrophils (%) (Auto) 91 % (31-73) Lymphocytes (%) (Auto) 6 % (24-48) Monocytes (%) (Auto) 4 % (0-9) Eosinophils (%) (Auto) 0 % (0-3) Basophils (%) (Auto) 0 % (0-3) Neutrophils # (Auto) 12.2 x10^3/uL (1.8-7.7) Lymphocytes # (Auto) 0.7 x10^3/uL (1.0-4.8) Monocytes # (Auto) 0.5 x10^3/uL (0.0-1.1) Eosinophils # (Auto) 0.0 x10^3/uL (0.0-0.7) Basophils # (Auto) 0.0 x10^3/uL (0.0-0.2) Sodium Level 144 mmol/L (136-145) Potassium Level 3.8 mmol/L (3.5-5.1) Chloride Level 106 mmol/L (98-107) Carbon Dioxide Level 33 mmol/L (21-32) Anion Gap 5 (6-14) Blood Urea Nitrogen 46 mg/dL (8-26) Creatinine 2.1 mg/dL (0.7-1.3) Estimated GFR (Cockcroft-Gault) 38.1 Glucose Level 110 mg/dL (70-99) Calcium Level 8.6 mg/dL (8.5-10.1) Test 12/06/19 17:28 12/07/19 02:59 12/07/19 05:30 Glucose (Fingerstick) 212 mg/dL (70-99) O2 Saturation 87 % (92-99) Arterial Blood pH 7.46 (7.35-7.45) Arterial Blood pCO2 at Patient Temp 41 mmHg (35-46) Arterial Blood pO2 at Patient Temp 53 mmHg (65-108) Arterial Blood HCO3 29 mmol/L (21-28) Arterial Blood Base Excess 4 mmol/L (-3-3) FiO2 100 White Blood Count 14.4 x10^3/uL (4.0-11.0) Red Blood Count 3.95 x10^6/uL (4.30-5.70) Hemoglobin 11.9 g/dL (13.0-17.5) Hematocrit 36.2 % (39.0-53.0) Mean Corpuscular Volume 92 fL (79-100) Mean Corpuscular Hemoglobin 30 pg (25-35) Mean Corpuscular Hemoglobin Concent 33 g/dL (31-37) Red Cell Distribution Width 13.7 % (11.5-14.5) Platelet Count 309 x10^3/uL (140-400) Neutrophils (%) (Auto) 93 % (31-73) Lymphocytes (%) (Auto) 4 % (24-48) Monocytes (%) (Auto) 3 % (0-9) Eosinophils (%) (Auto) 0 % (0-3) Basophils (%) (Auto) 0 % (0-3) Neutrophils # (Auto) 13.3 x10^3/uL (1.8-7.7) Lymphocytes # (Auto) 0.6 x10^3/uL (1.0-4.8) Monocytes # (Auto) 0.5 x10^3/uL (0.0-1.1) Eosinophils # (Auto) 0.0 x10^3/uL (0.0-0.7) Basophils # (Auto) 0.0 x10^3/uL (0.0-0.2) Sodium Level 146 mmol/L (136-145) Potassium Level 3.5 mmol/L (3.5-5.1) Chloride Level 108 mmol/L (98-107) Carbon Dioxide Level 31 mmol/L (21-32) Anion Gap 7 (6-14) Blood Urea Nitrogen 36 mg/dL (8-26) Creatinine 1.7 mg/dL (0.7-1.3) Estimated GFR (Cockcroft-Gault) 48.6 Glucose Level 76 mg/dL (70-99) Calcium Level 8.6 mg/dL (8.5-10.1) Magnesium Level 1.7 mg/dL (1.8-2.4) Laboratory Tests Test 12/06/19 12:54 12/06/19 17:28 12/07/19 02:59 12/07/19 05:30 Glucose (Fingerstick) 187 mg/dL (70-99) 212 mg/dL (70-99) O2 Saturation 87 % (92-99) Arterial Blood pH 7.46 (7.35-7.45) Arterial Blood pCO2 at Patient Temp 41 mmHg (35-46) Arterial Blood pO2 at Patient Temp 53 mmHg (65-108) Arterial Blood HCO3 29 mmol/L (21-28) Arterial Blood Base Excess 4 mmol/L (-3-3) FiO2 100 White Blood Count 14.4 x10^3/uL (4.0-11.0) Red Blood Count 3.95 x10^6/uL (4.30-5.70) Hemoglobin 11.9 g/dL (13.0-17.5) Hematocrit 36.2 % (39.0-53.0) Mean Corpuscular Volume 92 fL (79-100) Mean Corpuscular Hemoglobin 30 pg (25-35) Mean Corpuscular Hemoglobin Concent 33 g/dL (31-37) Red Cell Distribution Width 13.7 % (11.5-14.5) Platelet Count 309 x10^3/uL (140-400) Neutrophils (%) (Auto) 93 % (31-73) Lymphocytes (%) (Auto) 4 % (24-48) Monocytes (%) (Auto) 3 % (0-9) Eosinophils (%) (Auto) 0 % (0-3) Basophils (%) (Auto) 0 % (0-3) Neutrophils # (Auto) 13.3 x10^3/uL (1.8-7.7) Lymphocytes # (Auto) 0.6 x10^3/uL (1.0-4.8) Monocytes # (Auto) 0.5 x10^3/uL (0.0-1.1) Eosinophils # (Auto) 0.0 x10^3/uL (0.0-0.7) Basophils # (Auto) 0.0 x10^3/uL (0.0-0.2) Sodium Level 146 mmol/L (136-145) Potassium Level 3.5 mmol/L (3.5-5.1) Chloride Level 108 mmol/L (98-107) Carbon Dioxide Level 31 mmol/L (21-32) Anion Gap 7 (6-14) Blood Urea Nitrogen 36 mg/dL (8-26) Creatinine 1.7 mg/dL (0.7-1.3) Estimated GFR (Cockcroft-Gault) 48.6 Glucose Level 76 mg/dL (70-99) Calcium Level 8.6 mg/dL (8.5-10.1) Magnesium Level 1.7 mg/dL (1.8-2.4) Microbiology 12/01/19 Urine Culture - Final, Complete Medications Current Medications Ondansetron HCl (Zofran) 4 mg 1X ONCE IV Last administered on 11/28/19at 16:25; Start 11/28/19 at 15:30; Stop 11/28/19 at 15:36; Status DC Acetaminophen (Tylenol) 1,000 mg 1X ONCE PO Last administered on 11/28/19at 16:25; Start 11/28/19 at 15:45; Stop 11/28/19 at 16:03; Status DC Acetaminophen (Tylenol) 650 mg PRN Q6HRS PRN PO Headaches, Temp > 101.5' Last administered on 11/30/19at 08:45; Start 11/28/19 at 17:45 Lorazepam (Ativan Inj) 0.5 mg PRN Q6HRS PRN IVP ANXIETY / AGITATION Last administered on 12/06/19at 22:50; Start 11/28/19 at 17:45 Ondansetron HCl (Zofran) 4 mg PRN Q6HRS PRN IVP NAUSEA/VOMITING; Start 11/28/19 at 17:45 Famotidine (Pepcid Vial) 20 mg BID IVP Last administered on 12/03/19at 07:48; Start 11/28/19 at 21:00; Stop 12/03/19 at 15:24; Status DC Info (Icu Electrolyte Protocol) 1 ea DAILY MC ; Start 11/29/19 at 09:00; Stop 11/28/19 at 18:16; Status DC Enoxaparin Sodium (Lovenox 40mg Syringe) 150 mg Q12HR SQ ; Start 11/28/19 at 21:00; Stop 11/28/19 at 18:16; Status DC Sodium Chloride (Normal Saline Flush) 3 ml QSHIFT PRN IV AFTER MEDS AND BLOOD DRAWS; Start 11/28/19 at 17:45 Acetaminophen/ Hydrocodone Bitart (Lortab 5/325) 1 tab PRN Q4HRS PRN PO MILD PAIN, 2ND CHOICE; Start 11/28/19 at 17:45 Morphine Sulfate (Morphine Sulfate) 1 mg PRN Q1HR PRN IV PAIN; Start 11/28/19 at 17:45 Senna/Docusate Sodium (Senna Plus) 1 tab BID PO Last administered on 12/07/19at 09:00; Start 11/28/19 at 21:00 Lactulose (Lactulose) 20 gm PRN Q12HR PRN PO CONSTIPATION; Start 11/28/19 at 17:45 Amlodipine Besylate (Norvasc) 5 mg DAILY PO Last administered on 12/03/19at 07:49; Start 11/29/19 at 09:00; Stop 12/04/19 at 00:25; Status DC Aspirin (Aspirin Chewable) 81 mg DAILY PO Last administered on 12/07/19at 09:00; Start 11/29/19 at 09:00 Furosemide (Lasix) 20 mg DAILY PO Last administered on 12/01/19at 08:19; Start 11/29/19 at 09:00; Stop 12/01/19 at 12:52; Status DC Glipizide (Glucotrol) 2.5 mg DAILY PO Last administered on 11/30/19at 08:44; Start 11/29/19 at 09:00; Stop 12/01/19 at 08:12; Status DC Acetaminophen/ Hydrocodone Bitart (Lortab 5/325) 1 tab PRN Q6HRS PRN PO PAIN; Start 11/28/19 at 17:45; Status UNV Lisinopril (Prinivil) 40 mg DAILY PO Last administered on 12/01/19at 08:19; Start 11/29/19 at 09:00; Stop 12/01/19 at 12:52; Status DC Tamsulosin HCl (Flomax) 0.4 mg DAILY PO Last administered on 12/07/19at 08:46; Start 11/29/19 at 09:00 Hydrochlorothiazide (Hydrodiuril) 25 mg DAILY PO Last administered on 12/01/19at 08:17; Start 11/29/19 at 09:00; Stop 8/24/20 at 12:52; Status DC Cyclobenzaprine HCl (Flexeril) 10 mg TID PO Last administered on 11/30/19at 22:16; Start 11/28/19 at 21:00; Stop 12/02/19 at 06:46; Status DC Magnesium Sulfate 50 ml @ 25 mls/hr 1X ONCE IV Last administered on 11/28/19at 19:10; Start 11/28/19 at 19:00; Stop 11/28/19 at 20:59; Status DC Zinc Sulfate (Orazinc) 220 mg DAILY PO Last administered on 12/07/19at 08:46; Start 11/29/19 at 09:00 Ascorbic Acid (Vitamin C) 500 mg Q6HRS PO Last administered on 12/04/19at 11:48; Start 11/29/19 at 00:00; Stop 12/04/19 at 14:58; Status DC Vitamin D (Vitamin D3) 1,000 unit BID PO Last administered on 12/07/19at 08:46; Start 11/28/19 at 21:00 Atorvastatin Calcium (Lipitor) 40 mg QHS PO Last administered on 12/06/19at 20:21; Start 11/28/19 at 21:00 Enoxaparin Sodium (Lovenox 80mg Syringe) 80 mg 1X ONCE SQ Last administered on 11/28/19at 19:10; Start 11/28/19 at 19:00; Stop 11/28/19 at 19:01; Status DC Enoxaparin Sodium (Lovenox 40mg Syringe) 40 mg Q12HR SQ Last administered on 11/29/19at 20:52; Start 11/29/19 at 09:00; Stop 11/30/19 at 10:00; Status DC Thiamine HCl 200 mg/Dextrose 52 ml @ 102 mls/hr Q12HR IV Last administered on 12/04/19at 09:23; Start 11/28/19 at 19:30; Stop 12/04/19 at 14:59; Status DC Potassium Chloride (Klor-Con) 40 meq 1X ONCE PO Last administered on 11/29/19at 17:15; Start 11/29/19 at 16:45; Stop 11/29/19 at 16:46; Status DC Methylprednisolone Sodium Succinate (SOLU-Medrol 125MG VIAL) 60 mg Q8HRS IV Last administered on 12/03/19at 05:38; Start 11/30/19 at 09:00; Stop 12/03/19 at 10:50; Status DC Piperacillin Sod/ Tazobactam Sod (Zosyn Per Pharmacy) 1 each PRN DAILY PRN MC SEE COMMENTS; Start 11/30/19 at 08:45 Piperacillin Sod/ Tazobactam Sod 3.375 gm/Sodium Chloride 50 ml @ 100 mls/hr Q6HRS IV Last administered on 12/07/19at 06:08; Start 11/30/19 at 12:00 Heparin Sodium (Porcine) (Heparin Sodium) 5,000 unit Q8HRS SQ Last administered on 12/07/19at 06:09; Start 11/30/19 at 14:00 Sterile Water (WATER for RESP) 1,000 ml CONT PRN INH VIA VAPOTHERM DEVICE Last administered on 12/07/19at 00:30; Start 11/30/19 at 17:30 Insulin Glargine (Lantus Syringe) 20 unit BID SQ Last administered on 12/01/19at 12:30; Start 12/01/19 at 12:30; Stop 12/01/19 at 17:33; Status DC Insulin Human Lispro (HumaLOG) 0-9 UNITS TIDWMEALS SQ Last administered on 12/01/19at 17:33; Start 12/01/19 at 12:30; Stop 12/01/19 at 21:03; Status DC Dextrose (Dextrose 50%-Water Syringe) 12.5 gm PRN Q15MIN PRN IV SEE COMMENTS; Start 12/01/19 at 12:15 Sodium Chloride 1,000 ml @ 75 mls/hr 1X ONCE IV Last administered on 12/01/19at 12:58; Start 12/01/19 at 13:00; Stop 12/02/19 at 02:19; Status DC Insulin Glargine (Lantus Syringe) 30 unit BID SQ Last administered on 12/07/19at 09:13; Start 12/01/19 at 21:00 Insulin Human Lispro (HumaLOG) 10 units TIDWMEALS SQ Last administered on 12/01/19at 17:49; Start 12/01/19 at 17:45; Stop 12/01/19 at 21:04; Status DC Insulin Human Lispro (HumaLOG) 0-9 UNITS QIDACHS SQ Last administered on 12/06/19 21:35; Start 12/02/19 at 07:30 Insulin Human Lispro (HumaLOG) 15 units TIDWMEALS SQ Last administered on 12/06/19at 17:31; Start 12/02/19 at 08:00 Insulin Human Lispro (HumaLOG) 9 units 1X ONCE SQ Last administered on 12/01/19at 21:16; Start 12/01/19 at 21:30; Stop 12/01/19 at 21:31; Status DC Cyclobenzaprine HCl (Flexeril) 10 mg PRN TID PRN PO MUSCLE SPASMS Last administered on 12/06/19 20:16; Start 12/02/19 at 06:45 Furosemide (Lasix) 20 mg 1X ONCE IVP ; Start 12/02/19 at 10:15; Stop 12/02/19 at 10:47; Status DC Furosemide (Lasix) 40 mg 1X ONCE IVP Last administered on 12/02/19at 11:09; Start 12/02/19 at 10:45; Stop 12/02/19 at 10:51; Status DC Sodium Chloride 1,000 ml @ 75 mls/hr [id number] IV Last administered on 12/07/19at 00:53; Start 12/02/19 at 14:30 Lactobacillus Rhamnosus (Culturelle) 1 cap BID PO Last administered on 12/07/19 08:46; Start 12/02/19 at 21:00 Methylprednisolone Sodium Succinate (SOLU-Medrol 40MG VIAL) 40 mg Q8HRS IV Last administered on 12/07/19at 06:09; Start 12/03/19 at 14:00 Famotidine (Pepcid Vial) 20 mg DAILY IVP Last administered on 12/07/19at 09:00; Start 12/04/19 at 09:00 Amlodipine Besylate (Norvasc) 10 mg DAILY PO Last administered on 12/06/19at 07:58; Start 12/04/19 at 09:00; Stop 12/06/19 at 18:39; Status DC Hydralazine HCl (Apresoline Inj) 10 mg PRN Q15MIN PRN IVP ELEVATED BP, SEE COMMENTS Last administered on 12/06/19at 10:41; Start 12/04/19 at 00:30; Stop 12/06/19 at 15:23; Status DC Ascorbic Acid (Vitamin C) 500 mg BID PO Last administered on 12/07/19at 08:46; Start 12/04/19 at 21:00 Thiamine Mononitrate (Vitamin B-1) 100 mg BID PO Last administered on 12/07/19at 08:46; Start 12/04/19 at 21:00 Furosemide (Lasix) 40 mg 1X ONCE IVP Last administered on 12/05/19at 11:39; Start 12/05/19 at 11:15; Stop 12/05/19 at 11:16; Status DC Metoprolol Tartrate (Lopressor) 25 mg PRN BID PRN PO TACHYCARDIA; Start 12/05/19 at 22:30; Status Cancel Haloperidol Lactate (Haldol Inj) 2.5 mg PRN Q6HRS PRN IVP Anxiety Last administered on 12/07/19at 03:19; Start 12/06/19 at 10:45 Furosemide (Lasix) 40 mg 1X ONCE IVP Last administered on 12/06/19at 12:50; Start 12/06/19 at 12:30; Stop 12/06/19 at 12:31; Status DC Hydralazine HCl (Apresoline Inj) 20 mg PRN Q4HRS PRN IVP ELEVATED BP, SEE COMMENTS Last administered on 12/07/19at 06:10; Start 12/06/19 at 15:30 Nicardipine HCl 50 mg/Sodium Chloride 250 ml @ 25 mls/hr CONT PRN IV SEE I/O RECORD Last administered on 12/07/19at 09:32; Start 12/06/19 at 18:45 Dexmedetomidine HCl 400 mcg/ Sodium Chloride 100 ml @ 7.23 mls/hr CONT PRN IV SEE COMMENTS Last administered on 12/07/19at 09:00; Start 12/07/19 at 07:30 Sodium Chloride 500 ml @ 500 mls/hr 1X PRN PRN IV SEE COMMENTS; Start 12/07/19 at 07:30 Atropine Sulfate (ATROPINE 0.5mg SYRINGE) 0.5 mg PRN Q5MIN PRN IV SEE COMMENTS; Start 12/07/19 at 07:30 Diltiazem HCl (Cardizem Iv Push) 10 mg 1X ONCE IVP Last administered on 12/07/19at 09:13; Start 12/07/19 at 09:00; Stop 12/07/19 at 09:01; Status DC Diltiazem HCl 125 mg/Sodium Chloride 125 ml @ 5 mls/hr CONT PRN IV SEE I/O RECORD Last administered on 12/07/19at 09:33; Start 12/07/19 at 09:00 Magnesium Sulfate 50 ml @ 25 mls/hr 1X ONCE IV ; Start 12/07/19 at 09:45; Stop 12/07/19 at 11:44 Heparin Sodium/ Dextrose 250 ml @ 20 mls/hr CONT PRN IV PER PROTOCOL; Start 12/07/19 at 10:45 Heparin Sodium (Porcine) (Heparin Sodium) 4,350 unit PRN Q6HRS PRN IV FOR UFH LEVEL LESS THAN 0.2; Start 12/07/19 at 10:45 Heparin Sodium (Porcine) (Heparin Sodium) 2,150 unit PRN Q6HRS PRN IV FOR UFH LEVEL 0.2 - 0.29; Start 12/07/19 at 10:45 Active Scripts Active Garibaldi 5-325 Tablet (Acetaminophen/Hydrocodone Bitart) 1 Each Tablet 1 Tab PO PRN Q6HRS PRN Orphenadrine Citrate 100 Mg Tablet.er 1 Tab PO BID Amlodipine Besylate 5 Mg Tablet 5 Mg PO DAILY Reported Lisinopril 40 Mg Tablet 40 Mg PO DAILY Glipizide 5 Mg Tablet 2.5 Mg PO DAILY Hydrochlorothiazide Tablet (Hydrochlorothiazide) 12.5 Mg Tablet 25 Mg PO DAILY Furosemide 20 Mg Tablet 20 Mg PO DAILY Tamsulosin Hcl 0.4 Mg Cap.er.24h 1 Cap PO DAILY Aspirin 81 Mg Tab.chew 81 Mg PO DAILY Metformin Hcl 500 Mg Tablet 500 Mg PO DAILY Vitals/I & O Vital Sign - Last 24 Hours 12/06/19 12/06/19 12/06/19 12/06/19 12:00 12:00 12:25 13:00 Temp 97.7 97.7 Pulse 91 80 Resp 37 31 B/P (MAP) 140/73 (95) 149/82 (104) Pulse Ox 100 96 98 O2 Delivery vapotherm Nasal Cannula VAPOTHERM vapotherm O2 Flow Rate 40.0 40.0 40.0 40.0 12/06/19 12/06/19 12/06/19 12/06/19 14:00 15:00 16:00 16:00 Temp 97.6 97.6 Pulse 88 90 79 Resp 37 33 28 B/P (MAP) 163/74 (103) 186/84 (118) 188/91 (123) Pulse Ox 100 100 99 O2 Delivery vapotherm vapotherm Nasal Cannula vapotherm O2 Flow Rate 40.0 40.0 40.0 40.0 12/06/19 12/06/19 12/06/19 12/06/19 16:28 17:00 17:23 18:00 Pulse 84 84 87 Resp 18 30 B/P (MAP) 205/78 (120) 205/78 207/73 (117) Pulse Ox 92 98 96 O2 Delivery VAPOTHERM vapotherm vapotherm O2 Flow Rate 40.0 40.0 40.0 12/06/19 12/06/19 12/06/19 12/06/19 19:00 20:00 20:00 20:11 Temp 97.8 97.8 Pulse 105 99 Resp 29 29 B/P (MAP) 147/67 (93) 163/60 (94) Pulse Ox 95 95 95 O2 Delivery vapotherm Nasal Cannula vapotherm VAPOTHERM O2 Flow Rate 40.0 40.0 40.0 40.0 12/06/19 12/06/19 12/06/19 12/07/19 21:00 22:00 23:00 00:00 Temp 98.6 98.6 Pulse 108 126 128 110 Resp 24 27 29 36 B/P (MAP) 147/67 (93) 148/77 (100) 213/87 (129) 176/77 (110) Pulse Ox 92 87 95 95 O2 Delivery vapotherm vapotherm vapotherm vapotherm O2 Flow Rate 40.0 40.0 40.0 40.0 12/07/19 12/07/19 12/07/19 12/07/19 00:00 00:22 00:46 01:00 Pulse 141 116 Resp 29 B/P (MAP) 185/92 160/70 (100) Pulse Ox 93 86 O2 Delivery Nasal Cannula VAPOTHERM vapotherm O2 Flow Rate 40.0 40.0 40.0 12/07/19 12/07/19 12/07/19 12/07/19 02:00 03:00 03:14 04:00 Pulse 125 105 Resp 29 33 B/P (MAP) 121/75 (90) 182/74 (110) Pulse Ox 93 94 89 O2 Delivery vapotherm vapotherm VAPOTHERM Nasal Cannula O2 Flow Rate 40.0 40.0 40.0 40.0 12/07/19 12/07/19 12/07/19 12/07/19 04:00 05:00 06:00 06:10 Temp 97.8 97.8 Pulse 96 110 139 96 Resp 30 33 33 B/P (MAP) 154/64 (94) 173/71 (105) 134/78 (96) 154/64 Pulse Ox 93 93 83 O2 Delivery vapotherm vapotherm vapotherm O2 Flow Rate 40.0 40.0 40.0 12/07/19 12/07/19 12/07/19 12/07/19 07:00 08:00 08:33 09:00 Temp 98.1 98.1 Pulse 140 124 111 Resp 33 33 29 B/P (MAP) 174/85 (114) 121/67 (85) 111/61 (78) Pulse Ox 93 91 91 80 O2 Delivery vapotherm vapotherm VAPOTHERM vapotherm O2 Flow Rate 40.0 40.0 40.0 40.0 12/07/19 12/07/19 09:13 10:00 Pulse 130 93 Resp 28 B/P (MAP) 111/61 135/77 (96) Pulse Ox 90 O2 Delivery vapotherm O2 Flow Rate 40.0 Intake and Output 12/06/19 12/06/19 12/07/19 15:00 23:00 07:00 Intake Total 30 ml 550 ml Output Total 1125 ml 1070 ml 1900 ml Balance -1095 ml -520 ml -1900 ml Justicifation of Admission Dx: Justifications for Admission: Justification of Admission Dx: Yes Sepsis: Hypoxemia ORI WELLER MD Dec 07, 2019 11:03
[2019-12-07] MEDS: HEPARIN 25,000UTS/250ML PREMIX 250 ML IV PRN (11:05)
[2019-12-07] MEDS ORDERED: SUCCINYLCHOLINE 200 MG/10 ML VIAL. ONE (12:00)
[2019-12-07] MEDS ORDERED: PHENYLEPHRINE in 0.9% NACL PF 1 MG/10 ML SYRINGE. IV ONE (12:00)
[2019-12-07] MEDS ORDERED: ePHEDrine PF IN SALINE 50 MG/10 ML SYRINGE. IV ONE (12:00)
[2019-12-07] MEDS ORDERED: ETOMIDATE 20 MG/10 ML VIAL. IV ONE (12:00)
[2019-12-07] MEDS ORDERED: PROPOFOL 10 MG/ML (20ML) VIAL. IV ONE (12:00)
--- NOTE | 2019-12-07 13:40 | PDOC ---
Renal-Progress Notes Subjective Notes Notes NO NEW COMPLAINTS Vitals Vitals Vital Signs Date Time Temp Pulse Resp B/P (MAP) Pulse Ox O2 Delivery O2 Flow Rate FiO2 12/07/19 13:00 70 26 115/64 (81) 94 vapotherm 40.0 12/07/19 12:00 97.7 97.7 Weight Weight [ ] I.O. Intake and Output Intake and Output 12/07/19 07:00 Intake Total 580 ml Output Total 4095 ml Balance -3515 ml Intake Oral 580 ml Output Urine Total 4095 ml Labs Labs Laboratory Tests Test 12/06/19 17:28 12/07/19 02:59 12/07/19 05:30 12/07/19 10:59 Glucose (Fingerstick) 212 mg/dL (70-99) 93 mg/dL (70-99) O2 Saturation 87 % (92-99) Arterial Blood pH 7.46 (7.35-7.45) Arterial Blood pCO2 at Patient Temp 41 mmHg (35-46) Arterial Blood pO2 at Patient Temp 53 mmHg (65-108) Arterial Blood HCO3 29 mmol/L (21-28) Arterial Blood Base Excess 4 mmol/L (-3-3) FiO2 100 White Blood Count 14.4 x10^3/uL (4.0-11.0) Red Blood Count 3.95 x10^6/uL (4.30-5.70) Hemoglobin 11.9 g/dL (13.0-17.5) Hematocrit 36.2 % (39.0-53.0) Mean Corpuscular Volume 92 fL (79-100) Mean Corpuscular Hemoglobin 30 pg (25-35) Mean Corpuscular Hemoglobin Concent 33 g/dL (31-37) Red Cell Distribution Width 13.7 % (11.5-14.5) Platelet Count 309 x10^3/uL (140-400) Neutrophils (%) (Auto) 93 % (31-73) Lymphocytes (%) (Auto) 4 % (24-48) Monocytes (%) (Auto) 3 % (0-9) Eosinophils (%) (Auto) 0 % (0-3) Basophils (%) (Auto) 0 % (0-3) Neutrophils # (Auto) 13.3 x10^3/uL (1.8-7.7) Lymphocytes # (Auto) 0.6 x10^3/uL (1.0-4.8) Monocytes # (Auto) 0.5 x10^3/uL (0.0-1.1) Eosinophils # (Auto) 0.0 x10^3/uL (0.0-0.7) Basophils # (Auto) 0.0 x10^3/uL (0.0-0.2) Sodium Level 146 mmol/L (136-145) Potassium Level 3.5 mmol/L (3.5-5.1) Chloride Level 108 mmol/L (98-107) Carbon Dioxide Level 31 mmol/L (21-32) Anion Gap 7 (6-14) Blood Urea Nitrogen 36 mg/dL (8-26) Creatinine 1.7 mg/dL (0.7-1.3) Estimated GFR (Cockcroft-Gault) 48.6 Glucose Level 76 mg/dL (70-99) Calcium Level 8.6 mg/dL (8.5-10.1) Magnesium Level 1.7 mg/dL (1.8-2.4) Micro Micro Microbiology 12/01/19 Urine Culture - Final, Complete Review of Systems Constitutional: yes: no symptom reported Ears/Nose/Throat: Yes: no symptom reported Eyes: Yes: no symptom reported Gastrointestional: Yes: no symptom reported Genitourinary: Yes: no symptom reported Skin: Yes no symptom reported Psychiatric/Neurological: Yes: no symptom reported Endocrine: Yes: no symptom reported Physical Exam General Appearance: obese, other (NO PE DUE TO COVID 19) Assessment Assessment IMP DTI-GAX-UFPRSXCE-CR DOWN TO 1.7 CKD STAGE 3 WITH CR OF 1.3 COVID 19 PNEUMONIA ACUTE HYPOXIC RESP FAILURE MORBID OBESITY PROTEIN CALORIE MALNUTRITION HEMATURIA LIKELY AVILA VS COVID 19 PLAN CONT IVF'S LASIX PRN VAPOTHERM MAINTAIN ADEQUATE MAP STOPPED PRESTON-I STOPPED THIAZIDE AND LASIX SLOWLY IMPROVING WILL FOLLOW ANETA CANO MD Dec 07, 2019 13:40
[2019-12-07] MEDS ORDERED: fentaNYL PF VIAL 100 MCG/2 ML VIAL IV PRN ×2 (19:45)
[2019-12-07] MEDS: ATORVASTATIN CALCIUM 40 MG TABLET. PO SCH (21:00)
[2019-12-07] MEDS: MIDAZOLAM 100mg/100ml NS BAG 100 ML IV PRN (21:00)
[2019-12-07 21:13] LABS: BASE EXCESS COOX 2 mmol/L (-3-3); HCO3 COOX 28 mmol/L (21-28); METHEMOGLOBIN 0.2 % (0.0-1.9); OXYHEMOGLOBIN 90.6 %; PCO2 COOX 49 mmHg (35-46); PO2 COOX 69 mmHg (65-108); SAT O2 COOX 91 % (92-99)
--- NOTE | 2019-12-07 21:32 | RAD ---
Exam: Chest one view INDICATION: Intubation TECHNIQUE: Frontal view of the chest Comparisons: 12/05/2019 FINDINGS: Endotracheal tube with tip approximately 4 cm above the monet. The cardiomediastinal silhouette is within normal limits. Pulmonary vessels are obscured. Hazy opacity in lungs bilaterally. Small bilateral pleural effusions. IMPRESSION: Lines likely related to pulmonary edema with small bilateral pleural effusions. Electronically signed by: Tima Snyder MD (12/07/2019 9:29 PM) [id number]
[2019-12-07] MEDS: fentaNYL HIGH DOSE PCA 55 ML IV PRN (21:55)
--- NOTE | 2019-12-07 22:00 | NUR ---
Approx 1929, this RN went into patient's room to find him very anxious, saturation in 70s, RR in high 30s and repeatedly stating, "I would like to go home and see my kids." This RN attempted to soothe patient, but could not recover saturations. Eula was called on patient's cell phone. Both patient and this RN talked to her. Decision was made to progress to intubation. wharf hand spoke with both GEREMIAS and Dr. Hernandez and received ventilation orders. Meanwhile this RN set up phone calls with both daughter and son for patient to talk to them before intubating. Sameer ARCHULETA intubated patient using etomidate and succ. RT at bedside. Patient placed on ventilator. Sedation of versed, fentanyl, and precedex started. Patient became pretty agitated, easy to wake. Propofol started which helped with the situation and precedex was tapered off due to bradycardia. GEREMIAS also started an arterial line. Eula updated on situation. Patient now resting comfortably. VSS. Addendum: 12/08/19 at 0251 by KOJO HANSON RN RN OG attempted twice- first patient saturation dropped to 40s, second patient HR dropped to 30s. Both occurrences patient recovered. Third time not attempted. CXR received after intubation and OG attempts.
[2019-12-07] MEDS: PROPOFOL 100 ML IV PRN (23:29)
[2019-12-08] VITALS (24 sets, daily range): BP systolic 98–153; BP diastolic 38–66
[2019-12-08] MEDS: MIDAZOLAM 100mg/100ml NS BAG 100 ML IV PRN ×2 (03:16→18:18)
[2019-12-08] MEDS: HEPARIN 25,000UTS/250ML PREMIX 250 ML IV PRN (04:35)
[2019-12-08 05:45] LABS: ALBUMIN 1.4 g/dL (3.4-5.0); ALBUMIN/GLOBULIN RATIO 0.3 (1.0-1.7); CALCIUM 7.7 mg/dL (8.5-10.1); CREATININE 1.6 mg/dL (0.7-1.3); GFR 52.1; POTASSIUM 4.1 mmol/L (3.5-5.1); TOTAL BILIRUBIN 0.4 mg/dL (0.2-1.0); TOTAL PROTEIN 5.5 g/dL (6.4-8.2)
[2019-12-08] MEDS: PIPERACILLIN/TAZOBACTAM 3.375 GM in IV NORMAL SALINE 50ML 50 ML IV SCH ×4 (06:21→23:53)
[2019-12-08] MEDS: methylPREDNISolone SOD SUCC PF 40 MG/ML VIAL. IV SCH ×3 (06:21→20:13)
[2019-12-08] MEDS: PROPOFOL 100 ML IV PRN (06:22)
[2019-12-08] MEDS: INSULIN LISPRO 300 UNITS/3 ML VIAL. SQ SCH ×6 (07:30→23:54)
[2019-12-08 08:22] LABS: BASO % 0 % (0-3); EOS # 0.1 x10^3/uL (0.0-0.7); EOS % 1 % (0-3); HEMATOCRIT 31.2 % (39.0-53.0); HEMOGLOBIN 10.3 g/dL (13.0-17.5); LYMPH # 0.4 x10^3/uL (1.0-4.8); LYMPH % 4 % (24-48); MEAN CORPUSCULAR HEMOGLOBIN 31 pg (25-35); MEAN CORPUSCULAR HGB CONC 33 g/dL (31-37); MEAN CORPUSCULAR VOLUME 93 fL (79-100); MONO # 0.2 x10^3/uL (0.0-1.1); MONO % 2 % (0-9); NEUT # 9.1 x10^3/uL (1.8-7.7); NEUT % 93 % (31-73); PLATELET COUNT 239 x10^3/uL (140-400); RED BLOOD COUNT 3.37 x10^6/uL (4.30-5.70); RED CELL DISTRIBUTION WIDTH 14.2 % (11.5-14.5); WHITE BLOOD COUNT 9.7 x10^3/uL (4.0-11.0)
[2019-12-08 08:26] LABS: BASE EXCESS ABG 2 mmol/L (-3-3); HCO3 ABG 26 mmol/L (21-28); PCO2 ABG 39 mmHg (35-46); PO2 ABG 54 mmHg (65-108); SAT O2 ABG 88 % (92-99)
[2019-12-08 08:41] LABS: FIO2 ABG 100
[2019-12-08] MEDS: FAMOTIDINE 20 MG/2 ML VIAL IVP SCH (08:48)
--- NOTE | 2019-12-08 08:52 | PDOC ---
PULMONARY PROGRESS NOTES DATE: 12/08/19 TIME: 08:52 Subjective Patient became increasingly more short of air, decreased sats, did not tolerate BiPAP intubated 12/07 Vitals Vital Signs Date Time Temp Pulse Resp B/P (MAP) Pulse Ox O2 Delivery O2 Flow Rate FiO2 12/08/19 06:00 47 24 108/50 (69) 94 Ventilator 12/08/19 04:00 97.4 97.4 12/07/19 20:00 40.0 Comments visual exam done Now on assist control ventilation appears to be in sync some edema noted to the lower extremities General: Alert, No acute distress Labs Laboratory Tests Test 12/06/19 12:54 12/06/19 17:28 12/07/19 02:59 12/07/19 05:30 Glucose (Fingerstick) 187 mg/dL (70-99) 212 mg/dL (70-99) O2 Saturation 87 % (92-99) Arterial Blood pH 7.46 (7.35-7.45) Arterial Blood pCO2 at Patient Temp 41 mmHg (35-46) Arterial Blood pO2 at Patient Temp 53 mmHg (65-108) Arterial Blood HCO3 29 mmol/L (21-28) Arterial Blood Base Excess 4 mmol/L (-3-3) FiO2 100 White Blood Count 14.4 x10^3/uL (4.0-11.0) Red Blood Count 3.95 x10^6/uL (4.30-5.70) Hemoglobin 11.9 g/dL (13.0-17.5) Hematocrit 36.2 % (39.0-53.0) Mean Corpuscular Volume 92 fL (79-100) Mean Corpuscular Hemoglobin 30 pg (25-35) Mean Corpuscular Hemoglobin Concent 33 g/dL (31-37) Red Cell Distribution Width 13.7 % (11.5-14.5) Platelet Count 309 x10^3/uL (140-400) Neutrophils (%) (Auto) 93 % (31-73) Lymphocytes (%) (Auto) 4 % (24-48) Monocytes (%) (Auto) 3 % (0-9) Eosinophils (%) (Auto) 0 % (0-3) Basophils (%) (Auto) 0 % (0-3) Neutrophils # (Auto) 13.3 x10^3/uL (1.8-7.7) Lymphocytes # (Auto) 0.6 x10^3/uL (1.0-4.8) Monocytes # (Auto) 0.5 x10^3/uL (0.0-1.1) Eosinophils # (Auto) 0.0 x10^3/uL (0.0-0.7) Basophils # (Auto) 0.0 x10^3/uL (0.0-0.2) Sodium Level 146 mmol/L (136-145) Potassium Level 3.5 mmol/L (3.5-5.1) Chloride Level 108 mmol/L (98-107) Carbon Dioxide Level 31 mmol/L (21-32) Anion Gap 7 (6-14) Blood Urea Nitrogen 36 mg/dL (8-26) Creatinine 1.7 mg/dL (0.7-1.3) Estimated GFR (Cockcroft-Gault) 48.6 Glucose Level 76 mg/dL (70-99) Calcium Level 8.6 mg/dL (8.5-10.1) Magnesium Level 1.7 mg/dL (1.8-2.4) Test 12/07/19 10:59 12/07/19 19:42 12/07/19 21:37 12/07/19 22:00 Glucose (Fingerstick) 93 mg/dL (70-99) 121 mg/dL (70-99) O2 Saturation 91 % (92-99) Arterial Blood pH 7.37 (7.35-7.45) Arterial Blood pCO2 at Patient Temp 49 mmHg (35-46) Arterial Blood pO2 at Patient Temp 69 mmHg (65-108) Arterial Blood HCO3 28 mmol/L (21-28) Arterial Blood Base Excess 2 mmol/L (-3-3) Oxyhemoglobin 90.6 % Methemoglobin 0.2 % (0.0-1.9) Carbon Monoxide, Quantitative 0.3 % (0.0-1.9) FiO2 100 Heparin Anti-Xa Act, Unfractionated > 1.10 IU/mL (0.30-0.70) Test 12/08/19 00:02 12/08/19 05:00 12/08/19 07:45 Glucose (Fingerstick) 118 mg/dL (70-99) White Blood Count 9.7 x10^3/uL (4.0-11.0) Red Blood Count 3.37 x10^6/uL (4.30-5.70) Hemoglobin 10.3 g/dL (13.0-17.5) Hematocrit 31.2 % (39.0-53.0) Mean Corpuscular Volume 93 fL (79-100) Mean Corpuscular Hemoglobin 31 pg (25-35) Mean Corpuscular Hemoglobin Concent 33 g/dL (31-37) Red Cell Distribution Width 14.2 % (11.5-14.5) Platelet Count 239 x10^3/uL (140-400) Neutrophils (%) (Auto) 93 % (31-73) Lymphocytes (%) (Auto) 4 % (24-48) Monocytes (%) (Auto) 2 % (0-9) Eosinophils (%) (Auto) 1 % (0-3) Basophils (%) (Auto) 0 % (0-3) Neutrophils # (Auto) 9.1 x10^3/uL (1.8-7.7) Lymphocytes # (Auto) 0.4 x10^3/uL (1.0-4.8) Monocytes # (Auto) 0.2 x10^3/uL (0.0-1.1) Eosinophils # (Auto) 0.1 x10^3/uL (0.0-0.7) Basophils # (Auto) 0.0 x10^3/uL (0.0-0.2) Heparin Anti-Xa Act, Unfractionated > 1.10 IU/mL (0.30-0.70) Sodium Level 146 mmol/L (136-145) Potassium Level 4.1 mmol/L (3.5-5.1) Chloride Level 110 mmol/L (98-107) Carbon Dioxide Level 30 mmol/L (21-32) Anion Gap 6 (6-14) Blood Urea Nitrogen 34 mg/dL (8-26) Creatinine 1.6 mg/dL (0.7-1.3) Estimated GFR (Cockcroft-Gault) 52.1 BUN/Creatinine Ratio 21 (6-20) Glucose Level 121 mg/dL (70-99) Calcium Level 7.7 mg/dL (8.5-10.1) Total Bilirubin 0.4 mg/dL (0.2-1.0) Aspartate Amino Transf (AST/SGOT) 45 U/L (15-37) Alanine Aminotransferase (ALT/SGPT) 52 U/L (16-63) Alkaline Phosphatase 154 U/L (46-116) Total Protein 5.5 g/dL (6.4-8.2) Albumin 1.4 g/dL (3.4-5.0) Albumin/Globulin Ratio 0.3 (1.0-1.7) O2 Saturation 88 % (92-99) Arterial Blood pH 7.44 (7.35-7.45) Arterial Blood pCO2 at Patient Temp 39 mmHg (35-46) Arterial Blood pO2 at Patient Temp 54 mmHg (65-108) Arterial Blood HCO3 26 mmol/L (21-28) Arterial Blood Base Excess 2 mmol/L (-3-3) FiO2 100 Laboratory Tests Test 12/07/19 10:59 12/07/19 19:42 12/07/19 21:37 12/07/19 22:00 Glucose (Fingerstick) 93 mg/dL (70-99) 121 mg/dL (70-99) O2 Saturation 91 % (92-99) Arterial Blood pH 7.37 (7.35-7.45) Arterial Blood pCO2 at Patient Temp 49 mmHg (35-46) Arterial Blood pO2 at Patient Temp 69 mmHg (65-108) Arterial Blood HCO3 28 mmol/L (21-28) Arterial Blood Base Excess 2 mmol/L (-3-3) Oxyhemoglobin 90.6 % Methemoglobin 0.2 % (0.0-1.9) Carbon Monoxide, Quantitative 0.3 % (0.0-1.9) FiO2 100 Heparin Anti-Xa Act, Unfractionated > 1.10 IU/mL (0.30-0.70) Test 12/08/19 00:02 12/08/19 05:00 12/08/19 07:45 Glucose (Fingerstick) 118 mg/dL (70-99) White Blood Count 9.7 x10^3/uL (4.0-11.0) Red Blood Count 3.37 x10^6/uL (4.30-5.70) Hemoglobin 10.3 g/dL (13.0-17.5) Hematocrit 31.2 % (39.0-53.0) Mean Corpuscular Volume 93 fL (79-100) Mean Corpuscular Hemoglobin 31 pg (25-35) Mean Corpuscular Hemoglobin Concent 33 g/dL (31-37) Red Cell Distribution Width 14.2 % (11.5-14.5) Platelet Count 239 x10^3/uL (140-400) Neutrophils (%) (Auto) 93 % (31-73) Lymphocytes (%) (Auto) 4 % (24-48) Monocytes (%) (Auto) 2 % (0-9) Eosinophils (%) (Auto) 1 % (0-3) Basophils (%) (Auto) 0 % (0-3) Neutrophils # (Auto) 9.1 x10^3/uL (1.8-7.7) Lymphocytes # (Auto) 0.4 x10^3/uL (1.0-4.8) Monocytes # (Auto) 0.2 x10^3/uL (0.0-1.1) Eosinophils # (Auto) 0.1 x10^3/uL (0.0-0.7) Basophils # (Auto) 0.0 x10^3/uL (0.0-0.2) Heparin Anti-Xa Act, Unfractionated > 1.10 IU/mL (0.30-0.70) Sodium Level 146 mmol/L (136-145) Potassium Level 4.1 mmol/L (3.5-5.1) Chloride Level 110 mmol/L (98-107) Carbon Dioxide Level 30 mmol/L (21-32) Anion Gap 6 (6-14) Blood Urea Nitrogen 34 mg/dL (8-26) Creatinine 1.6 mg/dL (0.7-1.3) Estimated GFR (Cockcroft-Gault) 52.1 BUN/Creatinine Ratio 21 (6-20) Glucose Level 121 mg/dL (70-99) Calcium Level 7.7 mg/dL (8.5-10.1) Total Bilirubin 0.4 mg/dL (0.2-1.0) Aspartate Amino Transf (AST/SGOT) 45 U/L (15-37) Alanine Aminotransferase (ALT/SGPT) 52 U/L (16-63) Alkaline Phosphatase 154 U/L (46-116) Total Protein 5.5 g/dL (6.4-8.2) Albumin 1.4 g/dL (3.4-5.0) Albumin/Globulin Ratio 0.3 (1.0-1.7) O2 Saturation 88 % (92-99) Arterial Blood pH 7.44 (7.35-7.45) Arterial Blood pCO2 at Patient Temp 39 mmHg (35-46) Arterial Blood pO2 at Patient Temp 54 mmHg (65-108) Arterial Blood HCO3 26 mmol/L (21-28) Arterial Blood Base Excess 2 mmol/L (-3-3) FiO2 100 Medications Active Scripts Medications Dose Route/Sig Max Daily Dose Days Date Category [place] 5-325 Tablet (Acetaminophen/Hydrocodone Bitart) 1 Each Tablet 1 Tab PO PRN Q6HRS PRN 03/20/18 Rx Orphenadrine Citrate 100 Mg Tablet.er 1 Tab PO BID 03/20/18 Rx Amlodipine Besylate 5 Mg Tablet 5 Mg PO DAILY 02/20/17 Rx Lisinopril 40 Mg Tablet 40 Mg PO DAILY 02/18/17 Reported Glipizide 5 Mg Tablet 2.5 Mg PO DAILY 02/18/17 Reported Hydrochlorothiazide Tablet (Hydrochlorothiazide) 12.5 Mg Tablet 25 Mg PO DAILY 02/18/17 Reported Furosemide 20 Mg Tablet 20 Mg PO DAILY 02/18/17 Reported Tamsulosin Hcl 0.4 Mg Cap.er.24h 1 Cap PO DAILY 02/18/17 Reported Aspirin 81 Mg Tab.chew 81 Mg PO DAILY 02/18/17 Reported Metformin Hcl 500 Mg Tablet 500 Mg PO DAILY 02/18/17 Reported Comments CXR Impression: Bilateral perihilar infiltrates. CXR 12/05/19 Impression: Slight interval increase in the bilateral perihilar infiltrates. Impression . 1. Acute hypoxic respiratory failure secondary to COVID-19 pneumonia/acute lung injury/early acute respiratory distress syndrome. 2. Abnormal chest x-ray with bilateral interstitial infiltrates, suggestive of COVID-19 pneumonia.-- 3. No significant tobacco history. 4. Acute kidney injury on top of CKD with baseline cr of 1.3--- stable 5. Severe protein-calorie malnutrition. 6. Abnormal D-dimer, likely related to COVID pneumonia. 7. New onset A. fib with rapid ventricular response Chest x-ray IMPRESSION: 1. Bilateral perihilar and basilar opacities, slightly improved in the lung bases. 2. Improved or redistributed small bilateral pleural effusions. 3. Stable endotracheal tube. Plan . Intubated 12/07 for increasing shortness of air and decrease saturation Initiate Remdesivir 12/07 Follow cardiology input for new onset A. fib Lasix as needed Continue steroids with taper for COVID-19 pneumonia, will need total of 10 days empiric antibiotics Follow renal recommendations, cr improving slowly S/P plasma D-dimers elevated secondary to, patient on full dose hep DVT/GI PPX - D/W RN and RT TOTAL CRITICAL CARE TIME: 30 minutes. YUNIER COLBY MD Dec 08, 2019 08:52
[2019-12-08] MEDS: INSULIN GLARGINE SYRINGE. SQ SCH ×2 (09:00→20:47)
[2019-12-08] MEDS ORDERED: ATROPINE 1 MG/10 ML DISP.SYRINGE. ONE ×2 (09:07→09:30)
[2019-12-08] MEDS ORDERED: EPINEPHrine SYRINGE 1 MG/10 ML SYRINGE ONE (09:30)
--- NOTE | 2019-12-08 09:40 | PDOC ---
DATE OF SERVICE DATE: 12/08/19 TIME: 09:40 SUBJECTIVE ROS CVS: [] Orthopnea, [] CP RESP: [] SOB, [] HAYNES GI: [] Nausea, [] Vomiting : [] Dysuria, [] Urgency OBJECTIVE Vital Signs Vital Signs Date Time Temp Pulse Resp B/P (MAP) Pulse Ox O2 Delivery O2 Flow Rate FiO2 12/08/19 07:45 90 Ventilator 12/08/19 06:00 47 24 108/50 (69) 12/08/19 04:00 97.4 97.4 12/07/19 20:00 40.0 I & 0 Intake and Output 12/08/19 07:00 Intake Total 2696.8 ml Output Total 2050 ml Balance 646.8 ml IV Total 2696.8 ml Output Urine Total 2050 ml PHYSICAL EXAM Physical Exam GEN: Awake, Oriented x [], In [] distress EYES: Vision Unchanged, Conjunctiva Normal EN: No EN Drainage, Mucous Membranes [] NECK: [] JVD, [] JVP, Supple, [] Thyromegaly CVS: S1S2, [] Murmur, No Gallop, No Rub,[] Edema RESP: [] Rales, [] Rhonchi,[] Acc. Muscle Use GI: BS + ve, NO Bruit, Non Tender, Non Distended : [] CVA tenderness, [] Suprapubic Tenderness DIAGNOSIS/ASSESSMENT Assessment & Plan ESRD/ARF: Current fluid and E-lyte status does not necessitate emergent need for dialysis. Will re-evaluate for dialysis in the am and continue on [] schedule. ANEMIA; [] Aranap as ordered, [] Transfuse [] with next HD as needed HTN: Current BP meds as reviewed. See orders for changes. BONE & MINERAL: [] Discussed Plan of Care with family [] at bedside [] over the phone COMMENT/RELEVANT DATA Meds Current Medications Medications (Trade) Dose Ordered Sig/Quinn Start Time Stop Time Status Last Admin Dose Admin Acetaminophen (Tylenol) 650 mg PRN Q6HRS PRN 11/28/19 17:45 11/30/19 08:45 650 MG Acetaminophen/ Hydrocodone Bitart (Lortab 5/325) 1 tab PRN Q6HRS PRN 11/28/19 17:45 UNV Amlodipine Besylate (Norvasc) 10 mg DAILY 12/04/19 09:00 12/06/19 18:39 DC 12/06/19 07:58 10 MG Ascorbic Acid (Vitamin C) 500 mg BID 12/04/19 21:00 12/07/19 08:46 500 MG Aspirin (Aspirin Chewable) 81 mg DAILY 11/29/19 09:00 12/07/19 09:00 81 MG Atorvastatin Calcium (Lipitor) 40 mg QHS 11/28/19 21:00 12/06/19 20:21 40 MG Atropine Sulfate (ATROPINE 0.5mg SYRINGE) 0.5 mg PRN Q5MIN PRN 12/07/19 07:30 Atropine Sulfate (ATROPINE 1mg SYRINGE) 1 mg STK-MED ONCE 12/08/19 09:07 12/08/19 09:07 DC Cyclobenzaprine HCl (Flexeril) 10 mg PRN TID PRN 12/02/19 06:45 12/06/19 20:16 10 MG Dexmedetomidine HCl 400 mcg/ Sodium Chloride 100 ml @ 7.23 mls/hr CONT PRN 12/07/19 07:30 12/07/19 12:52 7.23 MLS/HR Dextrose (Dextrose 50%-Water Syringe) 12.5 gm PRN Q15MIN PRN 12/01/19 12:15 Diltiazem HCl (Cardizem Iv Push) 10 mg 1X ONCE 12/07/19 09:00 12/07/19 09:01 DC 12/07/19 09:13 10 MG Diltiazem HCl 125 mg/Sodium Chloride 125 ml @ 5 mls/hr CONT PRN 12/07/19 09:00 12/07/19 09:33 5 MLS/HR Enoxaparin Sodium (Lovenox 40mg Syringe) 40 mg Q12HR 11/29/19 09:00 11/30/19 10:00 DC 11/29/19 20:52 40 MG Enoxaparin Sodium (Lovenox 80mg Syringe) 80 mg 1X ONCE 11/28/19 19:00 11/28/19 19:01 DC 11/28/19 19:10 80 MG Famotidine (Pepcid Vial) 20 mg DAILY 12/04/19 09:00 12/08/19 08:48 20 MG Fentanyl Citrate 55 ml @ 0 mls/hr CONT PRN PRN 12/07/19 21:30 12/07/19 21:55 2 MLS/HR Fentanyl Citrate (Fentanyl 2ml Vial) 50 mcg PRN Q1HR PRN 12/07/19 19:45 Furosemide (Lasix) 40 mg 1X ONCE 12/06/19 12:30 12/06/19 12:31 DC 12/06/19 12:50 40 MG Glipizide (Glucotrol) 2.5 mg DAILY 11/29/19 09:00 12/01/19 08:12 DC 11/30/19 08:44 2.5 MG Haloperidol Lactate (Haldol Inj) 2.5 mg PRN Q6HRS PRN 12/06/19 10:45 12/07/19 03:19 2.5 MG Heparin Sodium (Porcine) (Heparin Sodium) 2,150 unit PRN Q6HRS PRN 12/07/19 10:45 Heparin Sodium/ Dextrose 250 ml @ 20 mls/hr CONT PRN 12/07/19 10:45 12/08/19 04:35 18.7 MLS/HR Hydralazine HCl (Apresoline Inj) 20 mg PRN Q4HRS PRN 12/06/19 15:30 12/07/19 06:10 20 MG Hydrochlorothiazide (Hydrodiuril) 25 mg DAILY 11/29/19 09:00 12/01/19 12:52 DC 12/01/19 08:17 25 MG Info (Icu Electrolyte Protocol) 1 ea DAILY 11/29/19 09:00 11/28/19 18:16 DC Insulin Glargine (Lantus Syringe) 30 unit BID 12/01/19 21:00 12/07/19 09:13 30 UNIT Insulin Human Lispro (HumaLOG) 9 units 1X ONCE 12/01/19 21:30 12/01/19 21:31 DC 12/01/19 21:16 9 UNITS Lactobacillus Rhamnosus (Culturelle) 1 cap BID 12/02/19 21:00 12/07/19 08:46 1 CAP Lactulose (Lactulose) 20 gm PRN Q12HR PRN 11/28/19 17:45 Lisinopril (Prinivil) 40 mg DAILY 11/29/19 09:00 12/01/19 12:52 DC 12/01/19 08:19 40 MG Lorazepam (Ativan Inj) 0.5 mg PRN Q6HRS PRN 11/28/19 17:45 12/06/19 22:50 0.5 MG Magnesium Sulfate 50 ml @ 25 mls/hr 1X ONCE 12/07/19 09:45 12/07/19 11:44 DC 12/07/19 11:05 25 MLS/HR Methylprednisolone Sodium Succinate (SOLU-Medrol 40MG VIAL) 40 mg Q8HRS 12/03/19 14:00 12/08/19 06:21 40 MG Methylprednisolone Sodium Succinate (SOLU-Medrol 125MG VIAL) 60 mg Q8HRS 11/30/19 09:00 12/03/19 10:50 DC 12/03/19 05:38 60 MG Metoprolol Tartrate (Lopressor) 25 mg PRN BID PRN 12/05/19 22:30 Cancel Midazolam HCl 100 ml @ 0 mls/hr CONT PRN 12/07/19 19:45 12/08/19 03:16 8 MLS/HR Morphine Sulfate (Morphine Sulfate) 1 mg PRN Q1HR PRN 11/28/19 17:45 Nicardipine HCl 50 mg/Sodium Chloride 250 ml @ 25 mls/hr CONT PRN 12/06/19 18:45 12/07/19 09:32 50 MLS/HR Ondansetron HCl (Zofran) 4 mg PRN Q6HRS PRN 11/28/19 17:45 Piperacillin Sod/ Tazobactam Sod (Zosyn Per Pharmacy) 1 each PRN DAILY PRN 11/30/19 08:45 Piperacillin Sod/ Tazobactam Sod 3.375 gm/Sodium Chloride 50 ml @ 100 mls/hr Q6HRS 11/30/19 12:00 12/08/19 06:21 100 MLS/HR Potassium Chloride (Klor-Con) 40 meq 1X ONCE 11/29/19 16:45 11/29/19 16:46 DC 11/29/19 17:15 40 MEQ Propofol 100 ml @ 0 mls/hr CONT PRN 12/07/19 20:00 12/08/19 06:22 8.6 MLS/HR Senna/Docusate Sodium (Senna Plus) 1 tab BID 11/28/19 21:00 12/07/19 09:00 1 TAB Sodium Chloride 500 ml @ 500 mls/hr 1X PRN PRN 12/07/19 07:30 Sodium Chloride (Normal Saline Flush) 3 ml QSHIFT PRN 11/28/19 17:45 Sterile Water (WATER for RESP) 1,000 ml CONT PRN 11/30/19 17:30 12/07/19 15:37 1,000 ML Tamsulosin HCl (Flomax) 0.4 mg DAILY 11/29/19 09:00 12/07/19 08:46 0.4 MG Thiamine Mononitrate (Vitamin B-1) 100 mg BID 12/04/19 21:00 12/07/19 08:46 100 MG Thiamine HCl 200 mg/Dextrose 52 ml @ 102 mls/hr Q12HR 11/28/19 19:30 12/04/19 14:59 DC 12/04/19 09:23 102 MLS/HR Vitamin D (Vitamin D3) 1,000 unit BID 11/28/19 21:00 12/07/19 08:46 1,000 UNIT Zinc Sulfate (Orazinc) 220 mg DAILY 11/29/19 09:00 12/07/19 08:46 220 MG Lab Laboratory Tests Test 12/07/19 10:59 12/07/19 19:42 12/07/19 21:37 12/07/19 22:00 Glucose (Fingerstick) 93 mg/dL (70-99) 121 mg/dL (70-99) O2 Saturation 91 % (92-99) Arterial Blood pH 7.37 (7.35-7.45) Arterial Blood pCO2 at Patient Temp 49 mmHg (35-46) Arterial Blood pO2 at Patient Temp 69 mmHg (65-108) Arterial Blood HCO3 28 mmol/L (21-28) Arterial Blood Base Excess 2 mmol/L (-3-3) Oxyhemoglobin 90.6 % Methemoglobin 0.2 % (0.0-1.9) Carbon Monoxide, Quantitative 0.3 % (0.0-1.9) FiO2 100 Heparin Anti-Xa Act, Unfractionated > 1.10 IU/mL (0.30-0.70) Test 12/08/19 00:02 12/08/19 05:00 12/08/19 07:45 12/08/19 08:51 Glucose (Fingerstick) 118 mg/dL (70-99) 118 mg/dL (70-99) White Blood Count 9.7 x10^3/uL (4.0-11.0) Red Blood Count 3.37 x10^6/uL (4.30-5.70) Hemoglobin 10.3 g/dL (13.0-17.5) Hematocrit 31.2 % (39.0-53.0) Mean Corpuscular Volume 93 fL (79-100) Mean Corpuscular Hemoglobin 31 pg (25-35) Mean Corpuscular Hemoglobin Concent 33 g/dL (31-37) Red Cell Distribution Width 14.2 % (11.5-14.5) Platelet Count 239 x10^3/uL (140-400) Neutrophils (%) (Auto) 93 % (31-73) Lymphocytes (%) (Auto) 4 % (24-48) Monocytes (%) (Auto) 2 % (0-9) Eosinophils (%) (Auto) 1 % (0-3) Basophils (%) (Auto) 0 % (0-3) Neutrophils # (Auto) 9.1 x10^3/uL (1.8-7.7) Lymphocytes # (Auto) 0.4 x10^3/uL (1.0-4.8) Monocytes # (Auto) 0.2 x10^3/uL (0.0-1.1) Eosinophils # (Auto) 0.1 x10^3/uL (0.0-0.7) Basophils # (Auto) 0.0 x10^3/uL (0.0-0.2) Heparin Anti-Xa Act, Unfractionated > 1.10 IU/mL (0.30-0.70) Sodium Level 146 mmol/L (136-145) Potassium Level 4.1 mmol/L (3.5-5.1) Chloride Level 110 mmol/L (98-107) Carbon Dioxide Level 30 mmol/L (21-32) Anion Gap 6 (6-14) Blood Urea Nitrogen 34 mg/dL (8-26) Creatinine 1.6 mg/dL (0.7-1.3) Estimated GFR (Cockcroft-Gault) 52.1 BUN/Creatinine Ratio 21 (6-20) Glucose Level 121 mg/dL (70-99) Calcium Level 7.7 mg/dL (8.5-10.1) Magnesium Level 2.0 mg/dL (1.8-2.4) Total Bilirubin 0.4 mg/dL (0.2-1.0) Aspartate Amino Transf (AST/SGOT) 45 U/L (15-37) Alanine Aminotransferase (ALT/SGPT) 52 U/L (16-63) Alkaline Phosphatase 154 U/L (46-116) Total Protein 5.5 g/dL (6.4-8.2) Albumin 1.4 g/dL (3.4-5.0) Albumin/Globulin Ratio 0.3 (1.0-1.7) O2 Saturation 88 % (92-99) Arterial Blood pH 7.44 (7.35-7.45) Arterial Blood pCO2 at Patient Temp 39 mmHg (35-46) Arterial Blood pO2 at Patient Temp 54 mmHg (65-108) Arterial Blood HCO3 26 mmol/L (21-28) Arterial Blood Base Excess 2 mmol/L (-3-3) FiO2 100 Results All relevant outside records, renal labs, imaging studies, telemetry/EKG's were reviewed. Justicifation of Admission Dx: Justifications for Admission: Justification of Admission Dx: Yes Sepsis: Hypoxemia YUDY MARTINEZ MD Dec 08, 2019 09:40
[2019-12-08] MEDS ORDERED: EPINEPHrine SYRINGE 1 MG/10 ML SYRINGE IV ONE (09:45)
--- NOTE | 2019-12-08 10:28 | PDOC ---
PROGRESS NOTES Date of Service: DATE: 12/08/19 TIME: 10:27 Chief Complaint Chief Complaint impression COVID 19 infection/ viral sepsis acute hypoxemic respiratory distress due to the above. Acute renal failure due to vasomotor nephropathy normocytic anemia Diabetes-Type II High Cholesterol Hypertension Severe protein calorie malnutrition PLAN PPX - lovenox FULL CODE Dispo - inpatient vent support screen for LTAC 34 min cc time History of Present Illness History of Present Illness Mr Olvera is a 69yo M w/ PMHx Diabetes-Type II, High Cholesterol, Hypertension who was in his usual state of health until 2 days prior ot his admission when he was evaluated at [facility] and found to be positive for COVID 19 virus, patient was discharged and given instructions to follow up in the nearest medical center would his symptoms worsen, Today he felt worse and more dyspneic reason why he came to the ER, he initially requiring 1 liter of oxygen 11/28: Febrile 101 3 F overnight. Procalcitonin elevated, INR 1.4, WBC 9.1, Hb 11.9, platelets 189, NA 137, K3.4, BUN 39, CR 2.8, glucose 240. He is short of breath with cough. He is insistent he does not wish for convalescent FFP if his O2 needs continues to increase. Now on 4L NCO2. 11/29: Febrile to 101.5 F overnight. Creatinine increased to 4.1, he still very short of breath worsening cough, increased from 6 L nasal cannula overnight to 15 L nonrebreather facemask. I discussed with pulmonology to transferred out of the ICU. I have asked the patient to reconsider convalesce and FFP and will discuss with his family. 11/30: No acute events reported overnight, case discussed with nursing staff patient in no acute distress no complaints during my visit seems to be tolerating Vapotherm well hopefully he will be able to continue with improving, encourage proning position if tolerated 12/01: No acute events reported overnight, case discussed with nursing staff patient in no acute distress no complaints during my visit, given update patient's over the phone reassurance has been provided no new complaints seems to be status quo. Encourage more activity as tolerated in prone positioning 12/02: Discussed with nursing staff, no acute events overnight. Breathing well on Vapotherm. Continue ICU monitoring. 12/03: Patient with O2 desaturation overnight. Breathing more comfortably upright position. Currently breathing on 40 L of high flow nasal cannula with 100% O2 saturation 12/07 : PLACED ON VENT OVER NIGHT, inc resp distress Vitals Vitals Vital Signs Date Time Temp Pulse Resp B/P (MAP) Pulse Ox O2 Delivery O2 Flow Rate FiO2 12/08/19 07:45 90 Ventilator 12/08/19 06:00 47 24 108/50 (69) 12/08/19 04:00 97.4 97.4 12/07/19 20:00 40.0 Physical Exam Physical Exam sedated on vent General: Cooperative Heart: Regular rate, Normal S1, Normal S2 Abdomen: Normal bowel sounds, Soft Extremities: No clubbing, No cyanosis Skin: No rashes, No breakdown Labs LABS Laboratory Tests Test 12/07/19 10:59 12/07/19 19:42 12/07/19 21:37 12/07/19 22:00 Glucose (Fingerstick) 93 mg/dL (70-99) 121 mg/dL (70-99) O2 Saturation 91 % (92-99) Arterial Blood pH 7.37 (7.35-7.45) Arterial Blood pCO2 at Patient Temp 49 mmHg (35-46) Arterial Blood pO2 at Patient Temp 69 mmHg (65-108) Arterial Blood HCO3 28 mmol/L (21-28) Arterial Blood Base Excess 2 mmol/L (-3-3) Oxyhemoglobin 90.6 % Methemoglobin 0.2 % (0.0-1.9) Carbon Monoxide, Quantitative 0.3 % (0.0-1.9) FiO2 100 Heparin Anti-Xa Act, Unfractionated > 1.10 IU/mL (0.30-0.70) Test 12/08/19 00:02 12/08/19 05:00 12/08/19 07:45 12/08/19 08:51 Glucose (Fingerstick) 118 mg/dL (70-99) 118 mg/dL (70-99) White Blood Count 9.7 x10^3/uL (4.0-11.0) Red Blood Count 3.37 x10^6/uL (4.30-5.70) Hemoglobin 10.3 g/dL (13.0-17.5) Hematocrit 31.2 % (39.0-53.0) Mean Corpuscular Volume 93 fL (79-100) Mean Corpuscular Hemoglobin 31 pg (25-35) Mean Corpuscular Hemoglobin Concent 33 g/dL (31-37) Red Cell Distribution Width 14.2 % (11.5-14.5) Platelet Count 239 x10^3/uL (140-400) Neutrophils (%) (Auto) 93 % (31-73) Lymphocytes (%) (Auto) 4 % (24-48) Monocytes (%) (Auto) 2 % (0-9) Eosinophils (%) (Auto) 1 % (0-3) Basophils (%) (Auto) 0 % (0-3) Neutrophils # (Auto) 9.1 x10^3/uL (1.8-7.7) Lymphocytes # (Auto) 0.4 x10^3/uL (1.0-4.8) Monocytes # (Auto) 0.2 x10^3/uL (0.0-1.1) Eosinophils # (Auto) 0.1 x10^3/uL (0.0-0.7) Basophils # (Auto) 0.0 x10^3/uL (0.0-0.2) Heparin Anti-Xa Act, Unfractionated > 1.10 IU/mL (0.30-0.70) Sodium Level 146 mmol/L (136-145) Potassium Level 4.1 mmol/L (3.5-5.1) Chloride Level 110 mmol/L (98-107) Carbon Dioxide Level 30 mmol/L (21-32) Anion Gap 6 (6-14) Blood Urea Nitrogen 34 mg/dL (8-26) Creatinine 1.6 mg/dL (0.7-1.3) Estimated GFR (Cockcroft-Gault) 52.1 BUN/Creatinine Ratio 21 (6-20) Glucose Level 121 mg/dL (70-99) Calcium Level 7.7 mg/dL (8.5-10.1) Magnesium Level 2.0 mg/dL (1.8-2.4) Total Bilirubin 0.4 mg/dL (0.2-1.0) Aspartate Amino Transf (AST/SGOT) 45 U/L (15-37) Alanine Aminotransferase (ALT/SGPT) 52 U/L (16-63) Alkaline Phosphatase 154 U/L (46-116) Total Protein 5.5 g/dL (6.4-8.2) Albumin 1.4 g/dL (3.4-5.0) Albumin/Globulin Ratio 0.3 (1.0-1.7) O2 Saturation 88 % (92-99) Arterial Blood pH 7.44 (7.35-7.45) Arterial Blood pCO2 at Patient Temp 39 mmHg (35-46) Arterial Blood pO2 at Patient Temp 54 mmHg (65-108) Arterial Blood HCO3 26 mmol/L (21-28) Arterial Blood Base Excess 2 mmol/L (-3-3) FiO2 100 Assessment and Plan Assessmemt and Plan Problems Medical Problems: (1) ARF (acute renal failure) Status: Acute (2) Fever Status: Acute (3) Hypoxemia Status: Acute (4) Sepsis Status: Acute Comment Review of Relevant I have reviewed the following items bren (where applicable) has been applied. Labs Laboratory Tests Test 12/06/19 12:54 12/06/19 17:28 12/07/19 02:59 12/07/19 05:30 Glucose (Fingerstick) 187 mg/dL (70-99) 212 mg/dL (70-99) O2 Saturation 87 % (92-99) Arterial Blood pH 7.46 (7.35-7.45) Arterial Blood pCO2 at Patient Temp 41 mmHg (35-46) Arterial Blood pO2 at Patient Temp 53 mmHg (65-108) Arterial Blood HCO3 29 mmol/L (21-28) Arterial Blood Base Excess 4 mmol/L (-3-3) FiO2 100 White Blood Count 14.4 x10^3/uL (4.0-11.0) Red Blood Count 3.95 x10^6/uL (4.30-5.70) Hemoglobin 11.9 g/dL (13.0-17.5) Hematocrit 36.2 % (39.0-53.0) Mean Corpuscular Volume 92 fL (79-100) Mean Corpuscular Hemoglobin 30 pg (25-35) Mean Corpuscular Hemoglobin Concent 33 g/dL (31-37) Red Cell Distribution Width 13.7 % (11.5-14.5) Platelet Count 309 x10^3/uL (140-400) Neutrophils (%) (Auto) 93 % (31-73) Lymphocytes (%) (Auto) 4 % (24-48) Monocytes (%) (Auto) 3 % (0-9) Eosinophils (%) (Auto) 0 % (0-3) Basophils (%) (Auto) 0 % (0-3) Neutrophils # (Auto) 13.3 x10^3/uL (1.8-7.7) Lymphocytes # (Auto) 0.6 x10^3/uL (1.0-4.8) Monocytes # (Auto) 0.5 x10^3/uL (0.0-1.1) Eosinophils # (Auto) 0.0 x10^3/uL (0.0-0.7) Basophils # (Auto) 0.0 x10^3/uL (0.0-0.2) Sodium Level 146 mmol/L (136-145) Potassium Level 3.5 mmol/L (3.5-5.1) Chloride Level 108 mmol/L (98-107) Carbon Dioxide Level 31 mmol/L (21-32) Anion Gap 7 (6-14) Blood Urea Nitrogen 36 mg/dL (8-26) Creatinine 1.7 mg/dL (0.7-1.3) Estimated GFR (Cockcroft-Gault) 48.6 Glucose Level 76 mg/dL (70-99) Calcium Level 8.6 mg/dL (8.5-10.1) Magnesium Level 1.7 mg/dL (1.8-2.4) Test 12/07/19 10:59 12/07/19 19:42 12/07/19 21:37 12/07/19 22:00 Glucose (Fingerstick) 93 mg/dL (70-99) 121 mg/dL (70-99) O2 Saturation 91 % (92-99) Arterial Blood pH 7.37 (7.35-7.45) Arterial Blood pCO2 at Patient Temp 49 mmHg (35-46) Arterial Blood pO2 at Patient Temp 69 mmHg (65-108) Arterial Blood HCO3 28 mmol/L (21-28) Arterial Blood Base Excess 2 mmol/L (-3-3) Oxyhemoglobin 90.6 % Methemoglobin 0.2 % (0.0-1.9) Carbon Monoxide, Quantitative 0.3 % (0.0-1.9) FiO2 100 Heparin Anti-Xa Act, Unfractionated > 1.10 IU/mL (0.30-0.70) Test 12/08/19 00:02 12/08/19 05:00 12/08/19 07:45 12/08/19 08:51 Glucose (Fingerstick) 118 mg/dL (70-99) 118 mg/dL (70-99) White Blood Count 9.7 x10^3/uL (4.0-11.0) Red Blood Count 3.37 x10^6/uL (4.30-5.70) Hemoglobin 10.3 g/dL (13.0-17.5) Hematocrit 31.2 % (39.0-53.0) Mean Corpuscular Volume 93 fL (79-100) Mean Corpuscular Hemoglobin 31 pg (25-35) Mean Corpuscular Hemoglobin Concent 33 g/dL (31-37) Red Cell Distribution Width 14.2 % (11.5-14.5) Platelet Count 239 x10^3/uL (140-400) Neutrophils (%) (Auto) 93 % (31-73) Lymphocytes (%) (Auto) 4 % (24-48) Monocytes (%) (Auto) 2 % (0-9) Eosinophils (%) (Auto) 1 % (0-3) Basophils (%) (Auto) 0 % (0-3) Neutrophils # (Auto) 9.1 x10^3/uL (1.8-7.7) Lymphocytes # (Auto) 0.4 x10^3/uL (1.0-4.8) Monocytes # (Auto) 0.2 x10^3/uL (0.0-1.1) Eosinophils # (Auto) 0.1 x10^3/uL (0.0-0.7) Basophils # (Auto) 0.0 x10^3/uL (0.0-0.2) Heparin Anti-Xa Act, Unfractionated > 1.10 IU/mL (0.30-0.70) Sodium Level 146 mmol/L (136-145) Potassium Level 4.1 mmol/L (3.5-5.1) Chloride Level 110 mmol/L (98-107) Carbon Dioxide Level 30 mmol/L (21-32) Anion Gap 6 (6-14) Blood Urea Nitrogen 34 mg/dL (8-26) Creatinine 1.6 mg/dL (0.7-1.3) Estimated GFR (Cockcroft-Gault) 52.1 BUN/Creatinine Ratio 21 (6-20) Glucose Level 121 mg/dL (70-99) Calcium Level 7.7 mg/dL (8.5-10.1) Magnesium Level 2.0 mg/dL (1.8-2.4) Total Bilirubin 0.4 mg/dL (0.2-1.0) Aspartate Amino Transf (AST/SGOT) 45 U/L (15-37) Alanine Aminotransferase (ALT/SGPT) 52 U/L (16-63) Alkaline Phosphatase 154 U/L (46-116) Total Protein 5.5 g/dL (6.4-8.2) Albumin 1.4 g/dL (3.4-5.0) Albumin/Globulin Ratio 0.3 (1.0-1.7) O2 Saturation 88 % (92-99) Arterial Blood pH 7.44 (7.35-7.45) Arterial Blood pCO2 at Patient Temp 39 mmHg (35-46) Arterial Blood pO2 at Patient Temp 54 mmHg (65-108) Arterial Blood HCO3 26 mmol/L (21-28) Arterial Blood Base Excess 2 mmol/L (-3-3) FiO2 100 Laboratory Tests Test 12/07/19 10:59 12/07/19 19:42 12/07/19 21:37 12/07/19 22:00 Glucose (Fingerstick) 93 mg/dL (70-99) 121 mg/dL (70-99) O2 Saturation 91 % (92-99) Arterial Blood pH 7.37 (7.35-7.45) Arterial Blood pCO2 at Patient Temp 49 mmHg (35-46) Arterial Blood pO2 at Patient Temp 69 mmHg (65-108) Arterial Blood HCO3 28 mmol/L (21-28) Arterial Blood Base Excess 2 mmol/L (-3-3) Oxyhemoglobin 90.6 % Methemoglobin 0.2 % (0.0-1.9) Carbon Monoxide, Quantitative 0.3 % (0.0-1.9) FiO2 100 Heparin Anti-Xa Act, Unfractionated > 1.10 IU/mL (0.30-0.70) Test 12/08/19 00:02 12/08/19 05:00 12/08/19 07:45 12/08/19 08:51 Glucose (Fingerstick) 118 mg/dL (70-99) 118 mg/dL (70-99) White Blood Count 9.7 x10^3/uL (4.0-11.0) Red Blood Count 3.37 x10^6/uL (4.30-5.70) Hemoglobin 10.3 g/dL (13.0-17.5) Hematocrit 31.2 % (39.0-53.0) Mean Corpuscular Volume 93 fL (79-100) Mean Corpuscular Hemoglobin 31 pg (25-35) Mean Corpuscular Hemoglobin Concent 33 g/dL (31-37) Red Cell Distribution Width 14.2 % (11.5-14.5) Platelet Count 239 x10^3/uL (140-400) Neutrophils (%) (Auto) 93 % (31-73) Lymphocytes (%) (Auto) 4 % (24-48) Monocytes (%) (Auto) 2 % (0-9) Eosinophils (%) (Auto) 1 % (0-3) Basophils (%) (Auto) 0 % (0-3) Neutrophils # (Auto) 9.1 x10^3/uL (1.8-7.7) Lymphocytes # (Auto) 0.4 x10^3/uL (1.0-4.8) Monocytes # (Auto) 0.2 x10^3/uL (0.0-1.1) Eosinophils # (Auto) 0.1 x10^3/uL (0.0-0.7) Basophils # (Auto) 0.0 x10^3/uL (0.0-0.2) Heparin Anti-Xa Act, Unfractionated > 1.10 IU/mL (0.30-0.70) Sodium Level 146 mmol/L (136-145) Potassium Level 4.1 mmol/L (3.5-5.1) Chloride Level 110 mmol/L (98-107) Carbon Dioxide Level 30 mmol/L (21-32) Anion Gap 6 (6-14) Blood Urea Nitrogen 34 mg/dL (8-26) Creatinine 1.6 mg/dL (0.7-1.3) Estimated GFR (Cockcroft-Gault) 52.1 BUN/Creatinine Ratio 21 (6-20) Glucose Level 121 mg/dL (70-99) Calcium Level 7.7 mg/dL (8.5-10.1) Magnesium Level 2.0 mg/dL (1.8-2.4) Total Bilirubin 0.4 mg/dL (0.2-1.0) Aspartate Amino Transf (AST/SGOT) 45 U/L (15-37) Alanine Aminotransferase (ALT/SGPT) 52 U/L (16-63) Alkaline Phosphatase 154 U/L (46-116) Total Protein 5.5 g/dL (6.4-8.2) Albumin 1.4 g/dL (3.4-5.0) Albumin/Globulin Ratio 0.3 (1.0-1.7) O2 Saturation 88 % (92-99) Arterial Blood pH 7.44 (7.35-7.45) Arterial Blood pCO2 at Patient Temp 39 mmHg (35-46) Arterial Blood pO2 at Patient Temp 54 mmHg (65-108) Arterial Blood HCO3 26 mmol/L (21-28) Arterial Blood Base Excess 2 mmol/L (-3-3) FiO2 100 Microbiology 12/01/19 Urine Culture - Final, Complete Medications Current Medications Ondansetron HCl (Zofran) 4 mg 1X ONCE IV Last administered on 11/28/19at 16:25; Start 11/28/19 at 15:30; Stop 11/28/19 at 15:36; Status DC Acetaminophen (Tylenol) 1,000 mg 1X ONCE PO Last administered on 11/28/19at 16:25; Start 11/28/19 at 15:45; Stop 11/28/19 at 16:03; Status DC Acetaminophen (Tylenol) 650 mg PRN Q6HRS PRN PO Headaches, Temp > 101.5' Last administered on 11/30/19at 08:45; Start 11/28/19 at 17:45 Lorazepam (Ativan Inj) 0.5 mg PRN Q6HRS PRN IVP ANXIETY / AGITATION Last administered on 12/06/19at 22:50; Start 11/28/19 at 17:45 Ondansetron HCl (Zofran) 4 mg PRN Q6HRS PRN IVP NAUSEA/VOMITING; Start 11/28/19 at 17:45 Famotidine (Pepcid Vial) 20 mg BID IVP Last administered on 12/03/19at 07:48; Start 11/28/19 at 21:00; Stop 12/03/19 at 15:24; Status DC Info (Icu Electrolyte Protocol) 1 ea DAILY MC ; Start 11/29/19 at 09:00; Stop 11/28/19 at 18:16; Status DC Enoxaparin Sodium (Lovenox 40mg Syringe) 150 mg Q12HR SQ ; Start 11/28/19 at 21:00; Stop 11/28/19 at 18:16; Status DC Sodium Chloride (Normal Saline Flush) 3 ml QSHIFT PRN IV AFTER MEDS AND BLOOD DRAWS; Start 11/28/19 at 17:45 Acetaminophen/ Hydrocodone Bitart (Lortab 5/325) 1 tab PRN Q4HRS PRN PO MILD PA IN, 2ND CHOICE; Start 11/28/19 at 17:45 Morphine Sulfate (Morphine Sulfate) 1 mg PRN Q1HR PRN IV PAIN; Start 11/28/19 at 17:45 Senna/Docusate Sodium (Senna Plus) 1 tab BID PO Last administered on 12/07/19at 09:00; Start 11/28/19 at 21:00 Lactulose (Lactulose) 20 gm PRN Q12HR PRN PO CONSTIPATION; Start 11/28/19 at 17:45 Amlodipine Besylate (Norvasc) 5 mg DAILY PO Last administered on 12/03/19at 07:49; Start 11/29/19 at 09:00; Stop 12/04/19 at 00:25; Status DC Aspirin (Aspirin Chewable) 81 mg DAILY PO Last administered on 12/07/19at 09:00; Start 11/29/19 at 09:00 Furosemide (Lasix) 20 mg DAILY PO Last administered on 12/01/19at 08:19; Start 11/29/19 at 09:00; Stop 12/01/19 at 12:52; Status DC Glipizide (Glucotrol) 2.5 mg DAILY PO Last administered on 11/30/19at 08:44; Start 11/29/19 at 09:00; Stop 12/01/19 at 08:12; Status DC Acetaminophen/ Hydrocodone Bitart (Lortab 5/325) 1 tab PRN Q6HRS PRN PO PAIN; Start 11/28/19 at 17:45; Status UNV Lisinopril (Prinivil) 40 mg DAILY PO Last administered on 12/01/19at 08:19; Start 11/29/19 at 09:00; Stop 12/01/19 at 12:52; Status DC Tamsulosin HCl (Flomax) 0.4 mg DAILY PO Last administered on 12/07/19 08:46; Start 11/29/19 at 09:00 Hydrochlorothiazide (Hydrodiuril) 25 mg DAILY PO Last administered on 12/01/19at 08:17; Start 11/29/19 at 09:00; Stop 12/01/19 at 12:52; Status DC Cyclobenzaprine HCl (Flexeril) 10 mg TID PO Last administered on 11/30/19at 22:16; Start 11/28/19 at 21:00; Stop 12/02/19 at 06:46; Status DC Magnesium Sulfate 50 ml @ 25 mls/hr 1X ONCE IV Last administered on 11/28/19at 19:10; Start 11/28/19 at 19:00; Stop 11/28/19 at 20:59; Status DC Zinc Sulfate (Orazinc) 220 mg DAILY PO Last administered on 12/07/19 08:46; Start 11/29/19 at 09:00 Ascorbic Acid (Vitamin C) 500 mg Q6HRS PO Last administered on 12/04/19at 11:48; Start 11/29/19 at 00:00; Stop 12/04/19 at 14:58; Status DC Vitamin D (Vitamin D3) 1,000 unit BID PO Last administered on 12/07/19at 08:46; Start 11/28/19 at 21:00 Atorvastatin Calcium (Lipitor) 40 mg QHS PO Last administered on 12/06/19 20:21; Start 11/28/19 at 21:00 Enoxaparin Sodium (Lovenox 80mg Syringe) 80 mg 1X ONCE SQ Last administered on 11/28/19at 19:10; Start 11/28/19 at 19:00; Stop 11/28/19 at 19:01; Status DC Enoxaparin Sodium (Lovenox 40mg Syringe) 40 mg Q12HR SQ Last administered on 11/29/19at 20:52; Start 11/29/19 at 09:00; Stop 11/30/19 at 10:00; Status DC Thiamine HCl 200 mg/Dextrose 52 ml @ 102 mls/hr Q12HR IV Last administered on 12/04/19at 09:23; Start 11/28/19 at 19:30; Stop 12/04/19 at 14:59; Status DC Potassium Chloride (Klor-Con) 40 meq 1X ONCE PO Last administered on 11/29/19at 17:15; Start 11/29/19 at 16:45; Stop 11/29/19 at 16:46; Status DC Methylprednisolone Sodium Succinate (SOLU-Medrol 125MG VIAL) 60 mg Q8HRS IV Last administered on 12/03/19at 05:38; Start 11/30/19 at 09:00; Stop 12/03/19 at 10:50; Status DC Piperacillin Sod/ Tazobactam Sod (Zosyn Per Pharmacy) 1 each PRN DAILY PRN MC SEE COMMENTS; Start 11/30/19 at 08:45 Piperacillin Sod/ Tazobactam Sod 3.375 gm/Sodium Chloride 50 ml @ 100 mls/hr Q6HRS IV Last administered on 12/08/19at 06:21; Start 11/30/19 at 12:00 Heparin Sodium (Porcine) (Heparin Sodium) 5,000 unit Q8HRS SQ Last administered on 12/07/19at 06:09; Start 11/30/19 at 14:00; Stop 12/07/19 at 11:13; Status DC Sterile Water (WATER for RESP) 1,000 ml CONT PRN INH VIA VAPOTHERM DEVICE Last administered on 12/07/19at 15:37; Start 11/30/19 at 17:30 Insulin Glargine (Lantus Syringe) 20 unit BID SQ Last administered on 12/01/19at 12:30; Start 12/01/19 at 12:30; Stop 12/01/19 at 17:33; Status DC Insulin Human Lispro (HumaLOG) 0-9 UNITS TIDWMEALS SQ Last administered on 12/01/19at 17:33; Start 12/01/19 at 12:30; Stop 12/01/19 at 21:03; Status DC Dextrose (Dextrose 50%-Water Syringe) 12.5 gm PRN Q15MIN PRN IV SEE COMMENTS; Start 12/01/19 at 12:15 Sodium Chloride 1,000 ml @ 75 mls/hr 1X ONCE IV Last administered on 12/01/19at 12:58; Start 12/01/19 at 13:00; Stop 12/02/19 at 02:19; Status DC Insulin Glargine (Lantus Syringe) 30 unit BID SQ Last administered on 12/07/19at 09:13; Start 12/01/19 at 21:00 Insulin Human Lispro (HumaLOG) 10 units TIDWMEALS SQ Last administered on 12/01/19at 17:49; Start 12/01/19 at 17:45; Stop 12/01/19 at 21:04; Status DC Insulin Human Lispro (HumaLOG) 0-9 UNITS QIDACHS SQ Last administered on 12/06/19at 21:35; Start 12/02/19 at 07:30 Insulin Human Lispro (HumaLOG) 15 units TIDWMEALS SQ Last administered on 12/06/19at 17:31; Start 12/02/19 at 08:00 Insulin Human Lispro (HumaLOG) 9 units 1X ONCE SQ Last administered on 12/01/19at 21:16; Start 12/01/19 at 21:30; Stop 12/01/19 at 21:31; Status DC Cyclobenzaprine HCl (Flexeril) 10 mg PRN TID PRN PO MUSCLE SPASMS Last administered on 12/06/19at 20:16; Start 12/02/19 at 06:45 Furosemide (Lasix) 20 mg 1X ONCE IVP ; Start 12/02/19 at 10:15; Stop 12/02/19 at 10:47; Status DC Furosemide (Lasix) 40 mg 1X ONCE IVP Last administered on 12/02/19at 11:09; Start 12/02/19 at 10:45; Stop 12/02/19 at 10:51; Status DC Sodium Chloride 1,000 ml @ 75 mls/hr [id number] IV Last administered on 12/07/19at 23:32; Start 12/02/19 at 14:30 Lactobacillus Rhamnosus (Culturelle) 1 cap BID PO Last administered on 12/07/19at 08:46; Start 12/02/19 at 21:00 Methylprednisolone Sodium Succinate (SOLU-Medrol 40MG VIAL) 40 mg Q8HRS IV Last administered on 12/08/19at 06:21; Start 12/03/19 at 14:00 Famotidine (Pepcid Vial) 20 mg DAILY IVP Last administered on 12/08/19at 08:48; Start 12/04/19 at 09:00 Amlodipine Besylate (Norvasc) 10 mg DAILY PO Last administered on 12/06/19at 07:58; Start 12/04/19 at 09:00; Stop 12/06/19 at 18:39; Status DC Hydralazine HCl (Apresoline Inj) 10 mg PRN Q15MIN PRN IVP ELEVATED BP, SEE COMMENTS Last administered on 12/06/19at 10:41; Start 12/04/19 at 00:30; Stop 12/06/19 at 15:23; Status DC Ascorbic Acid (Vitamin C) 500 mg BID PO Last administered on 12/07/19at 08:46; Start 12/04/19 at 21:00 Thiamine Mononitrate (Vitamin B-1) 100 mg BID PO Last administered on 12/07/19at 08:46; Start 12/04/19 at 21:00 Furosemide (Lasix) 40 mg 1X ONCE IVP Last administered on 12/05/19at 11:39; Start 12/05/19 at 11:15; Stop 12/05/19 at 11:16; Status DC Metoprolol Tartrate (Lopressor) 25 mg PRN BID PRN PO TACHYCARDIA; Start 12/05/19 at 22:30; Status Cancel Haloperidol Lactate (Haldol Inj) 2.5 mg PRN Q6HRS PRN IVP Anxiety Last administered on 12/07/19at 03:19; Start 12/06/19 at 10:45 Furosemide (Lasix) 40 mg 1X ONCE IVP Last administered on 12/06/19at 12:50; Start 12/06/19 at 12:30; Stop 12/06/19 at 12:31; Status DC Hydralazine HCl (Apresoline Inj) 20 mg PRN Q4HRS PRN IVP ELEVATED BP, SEE COMMENTS Last administered on 12/07/19at 06:10; Start 12/06/19 at 15:30 Nicardipine HCl 50 mg/Sodium Chloride 250 ml @ 25 mls/hr CONT PRN IV SEE I/O RECORD Last administered on 12/07/19at 09:32; Start 12/06/19 at 18:45 Dexmedetomidine HCl 400 mcg/ Sodium Chloride 100 ml @ 7.23 mls/hr CONT PRN IV SEE COMMENTS Last administered on 12/07/19at 12:52; Start 12/07/19 at 07:30 Sodium Chloride 500 ml @ 500 mls/hr 1X PRN PRN IV SEE COMMENTS; Start 12/07/19 at 07:30 Atropine Sulfate (ATROPINE 0.5mg SYRINGE) 0.5 mg PRN Q5MIN PRN IV SEE COMMENTS; Start 12/07/19 at 07:30 Diltiazem HCl (Cardizem Iv Push) 10 mg 1X ONCE IVP Last administered on 12/07/19at 09:13; Start 12/07/19 at 09:00; Stop 12/07/19 at 09:01; Status DC Diltiazem HCl 125 mg/Sodium Chloride 125 ml @ 5 mls/hr CONT PRN IV SEE I/O RECORD Last administered on 12/07/19at 09:33; Start 12/07/19 at 09:00 Magnesium Sulfate 50 ml @ 25 mls/hr 1X ONCE IV Last administered on 12/07/19at 11:05; Start 12/07/19 at 09:45; Stop 12/07/19 at 11:44; Status DC Heparin Sodium/ Dextrose 250 ml @ 20 mls/hr CONT PRN IV PER PROTOCOL Last administered on 12/08/19at 04:35; Start 12/07/19 at 10:45 Heparin Sodium (Porcine) (Heparin Sodium) 4,350 unit PRN Q6HRS PRN IV FOR UFH LEVEL LESS THAN 0.2; Start 12/07/19 at 10:45 Heparin Sodium (Porcine) (Heparin Sodium) 2,150 unit PRN Q6HRS PRN IV FOR UFH LEVEL 0.2 - 0.29; Start 12/07/19 at 10:45 Fentanyl Citrate 30 ml @ 0 mls/hr CONT PRN IV SEE PROTOCOL; Start 12/07/19 at 19:45; Stop 12/07/19 at 21:23; Status DC Fentanyl Citrate (Fentanyl 2ml Vial) 25 mcg PRN Q1HR PRN IV SEE COMMENTS; S tart 12/07/19 at 19:45 Fentanyl Citrate (Fentanyl 2ml Vial) 50 mcg PRN Q1HR PRN IV SEE COMMENTS; Start 12/07/19 at 19:45 Midazolam HCl 100 ml @ 0 mls/hr CONT PRN IV SEE PROTOCOL Last administered on 12/08/19at 03:16; Start 12/07/19 at 19:45 Propofol 100 ml @ 0 mls/hr CONT PRN IV SEE PROTOCOL Last administered on 12/08/19at 06:22; Start 12/07/19 at 20:00 Fentanyl Citrate 55 ml @ 0 mls/hr CONT PRN PRN IV PAIN/SEDATION Last administered on 12/07/19at 21:55; Start 12/07/19 at 21:30 Atropine Sulfate (ATROPINE 1mg SYRINGE) 1 mg STK-MED ONCE .ROUTE ; Start 12/08/19 at 09:07; Stop 12/08/19 at 09:07; Status DC Epinephrine HCl (EPINEPHrine SYRINGE) 1 mg 1X ONCE IV ; Start 12/08/19 at 09:45; Stop 12/08/19 at 09:50; Status DC Active Scripts Active Cecil 5-325 Tablet (Acetaminophen/Hydrocodone Bitart) 1 Each Tablet 1 Tab PO PRN Q6HRS PRN Orphenadrine Citrate 100 Mg Tablet.er 1 Tab PO BID Amlodipine Besylate 5 Mg Tablet 5 Mg PO DAILY Reported Lisinopril 40 Mg Tablet 40 Mg PO DAILY Glipizide 5 Mg Tablet 2.5 Mg PO DAILY Hydrochlorothiazide Tablet (Hydrochlorothiazide) 12.5 Mg Tablet 25 Mg PO DAILY Furosemide 20 Mg Tablet 20 Mg PO DAILY Tamsulosin Hcl 0.4 Mg Cap.er.24h 1 Cap PO DAILY Aspirin 81 Mg Tab.chew 81 Mg PO DAILY Metformin Hcl 500 Mg Tablet 500 Mg PO DAILY Vitals/I & O Vital Sign - Last 24 Hours 12/07/19 12/07/19 12/07/19 12/07/19 11:00 11:23 12:00 12:00 Temp 97.7 97.7 Pulse 86 75 Resp 32 25 B/P (MAP) 141/78 (99) 105/63 (77) Pulse Ox 90 94 96 O2 Delivery vapotherm BiPAP/CPAP Nasal Cannula vapotherm O2 Flow Rate 40.0 40.0 40.0 12/07/19 12/07/19 12/07/19 12/07/19 12:28 13:00 14:00 15:00 Pulse 70 60 54 Resp 26 26 24 B/P (MAP) 115/64 (81) 125/74 (91) 130/78 (95) Pulse Ox 94 94 94 94 O2 Delivery Vapotherm vapotherm vapotherm vapotherm O2 Flow Rate 40.0 40.0 40.0 40.0 12/07/19 12/07/19 12/07/19 12/07/19 15:37 16:00 16:00 17:00 Temp 97.8 97.8 Pulse 50 65 Resp 25 24 B/P (MAP) 124/62 (82) 126/71 (89) Pulse Ox 93 96 91 O2 Delivery VAPOTHERM vapotherm Nasal Cannula vapotherm O2 Flow Rate 40.0 40.0 40.0 40.0 12/07/19 12/07/19 12/07/19 12/07/19 18:00 19:00 20:00 21:00 Pulse 50 60 70 Resp 18 30 36 B/P (MAP) 133/65 (87) 133/64 (87) 146/74 (98) Pulse Ox 91 89 74 91 O2 Delivery vapotherm vapotherm vapotherm Ventilator O2 Flow Rate 40.0 40.0 40.0 12/07/19 12/07/19 12/07/19 12/07/19 21:00 21:00 21:00 22:00 Temp 97.5 97.5 Pulse 52 52 50 Resp 24 24 B/P (MAP) 124/44 (70) 124/44 (70) 128/54 (78) Pulse Ox 84 98 O2 Delivery Ventilator Mechanical Ventilator Ventilator 12/07/19 12/08/19 12/08/19 12/08/19 23:00 00:00 00:00 00:00 Temp 97.2 97.2 Pulse 46 46 46 Resp 24 24 B/P (MAP) 124/58 (80) 124/58 (80) 122/58 (79) Pulse Ox 97 96 O2 Delivery Ventilator Mechanical Ventilator Ventilator 12/08/19 12/08/19 12/08/19 12/08/19 00:18 01:00 02:00 03:00 Pulse 46 45 44 Resp 24 24 24 B/P (MAP) 121/57 (78) 119/56 (77) 116/54 (74) Pulse Ox 97 97 97 97 O2 Delivery Ventilator Ventilator Ventilator Ventilator 12/08/19 12/08/19 12/08/19 12/08/19 04:00 04:00 04:00 04:55 Temp 97.4 97.4 Pulse 44 44 Resp 24 B/P (MAP) 111/52 (71) 111/52 (71) Pulse Ox 96 97 O2 Delivery Ventilator Mechanical Ventilator Ventilator 12/08/19 12/08/19 12/08/19 05:00 06:00 07:45 Pulse 46 47 Resp 24 24 B/P (MAP) 119/54 (75) 108/50 (69) Pulse Ox 98 94 90 O2 Delivery Ventilator Ventilator Ventilator Intake and Output 12/07/19 12/07/19 12/08/19 15:00 23:00 07:00 Intake Total 50 ml 1437.8 ml 1209 ml Output Total 350 ml 1325 ml 375 ml Balance -300 ml 112.8 ml 834 ml Justicifation of Admission Dx: Justifications for Admission: Justification of Admission Dx: Yes Sepsis: Hypoxemia ORI WELLER MD Dec 08, 2019 10:28
--- NOTE | 2019-12-08 10:47 | PDOC2 ---
CARDIOLOGY CONSULT NOTE DATE OF SERVICE: DATE: 12/08/19 TIME: 10:43 CHIEF COMPLAINT: New onset atrial fibrillation HPI: 69-year-old male admitted to the hospital for COVID-19 pneumonia who has had progressive worsening of his respiratory failure and ultimately was intubated yesterday. In this setting he had an episode of atrial fibrillation and the cardiology team was consulted. Patient had been treated in the hospital for several days with multiorgan failure. He had a prior evaluation in 2017 including a stress test and echocardiogram which were unremarkable. History is otherwise limited as the patient is intubated. He had one episode of asystole while manipulating ET tubes. He is on precedex, midazolam and propofol. PMHX: 1. Hypertension 2. Morbid obesity 3. Chronic kidney disease SOCHX: No alcohol, tobacco or illicit drug use FAMHX: Noncontributory CURRENT MEDS: Precedex Fentanyl Nicardipine Midazolam Zosyn Hep gtt Propofol Diltiazem ALLERGIES: Allergies Coded Allergies Type Severity Reaction Last Updated Verified No Known Drug Allergies 02/18/17 No ROS: Unable to be obtained as the patient is intubated PHYSICAL EXAM: Vital Signs/I&O: Vital Signs Date Time Temp Pulse Resp B/P (MAP) Pulse Ox O2 Delivery O2 Flow Rate FiO2 12/08/19 07:45 90 Ventilator 12/08/19 06:00 47 24 108/50 (69) 12/08/19 04:00 97.4 97.4 12/07/19 20:00 40.0 I & O 12/07/19 12/07/19 12/08/19 15:00 23:00 07:00 Intake Total 50 ml 1437.8 ml 1209 ml Output Total 350 ml 1325 ml 375 ml Balance -300 ml 112.8 ml 834 ml Physical Exam: Deferred due to COVID-19 precautions DIAGNOSTIC TESTING: Labs, EKG, chest x-ray reviewed Lab LABS REVIEWED ASSESSMENT: 1. Acute hypoxic resp failure due to COVID 19 PNA 2. New onset afib, currently SR 3. Probable diastolic HF in the setting of multiple comorbidities as noted above PLAN: 1. Hypertension - now resolved. 2. Afib - now resolved. Ok to hold Diltiazem, Nicardipine. Prn dilt if recurrent afib. Asystole likely related OG placement. No further tx needed. KRISTI HERNANDEZ MD Dec 08, 2019 10:47
--- NOTE | 2019-12-08 10:55 | PDOC ---
Provider Note Date of Service: DATE: 12/08/19 TIME: 10:48 Provider Note Anesthesiology Called to place a central line in Covid+ pt. requiring IV access. RIJ TLC placed in usual sterile fashion with US guidance. All ports easily aspirated and flushed, sutured in place and sterile dressing applied. CXR pending to confirm placement. Noted significant O2 desaturations to mid 50s with pt. in Tberg position. O2 sats recovered when pt. taken out of Tberg position. Kun Andino MD Justifications for Admission Other Justification STEVEN ANDINO MD Dec 08, 2019 10:55
--- NOTE | 2019-12-08 11:18 | PDOC ---
DATE OF SERVICE DATE: 12/08/19 TIME: 11:10 SUBJECTIVE ROS Intubated on 12/06 evening OBJECTIVE Vital Signs Vital Signs Date Time Temp Pulse Resp B/P (MAP) Pulse Ox O2 Delivery O2 Flow Rate FiO2 12/08/19 08:00 Mechanical Ventilator 12/08/19 07:45 90 12/08/19 06:00 47 24 108/50 (69) 12/08/19 04:00 97.4 97.4 12/07/19 20:00 40.0 I & 0 Intake and Output 12/08/19 07:00 Intake Total 2696.8 ml Output Total 2050 ml Balance 646.8 ml IV Total 2696.8 ml Output Urine Total 2050 ml PHYSICAL EXAM Physical Exam Visual Exam (During Global CoViD 19 pandemic) GEN.: Intubated, On MV HEENT: Head is normocephalic LUNGS: No use of accessory muscles HEART: RRR, ABDOMEN: obese, EXTREMITIES: Trace Bilat LE edema + NEUROLOGIC: sedated SKIN: No rash Pringle + DIAGNOSIS/ASSESSMENT Assessment & Plan CHAYITO - ATN , peaked at 4.1 --> 1.6, Improving Good UOP Supportive care, Strict I/O, Avoid Nephrotoxins CKD stage 3- Cr in [facility] records 1.3 in 2017 No Interval labs Acute hypoxic respiratory failure secondary to COVID-19 pneumonia/acute lung injury/early acute respiratory distress syndrome. Abnormal chest x-ray with bilateral interstitial infiltrates.Intubated , On MV Abnormal D-dimer, likely related to COVID pneumonia. Diabetes-Type II Hypertension Severe protein calorie malnutrition COMMENT/RELEVANT DATA Meds Current Medications Medications (Trade) Dose Ordered Sig/Quinn Start Time Stop Time Status Last Admin Dose Admin Acetaminophen (Tylenol) 650 mg PRN Q6HRS PRN 11/28/19 17:45 11/30/19 08:45 650 MG Acetaminophen/ Hydrocodone Bitart (Lortab 5/325) 1 tab PRN Q6HRS PRN 11/28/19 17:45 UNV Amlodipine Besylate (Norvasc) 10 mg DAILY 12/04/19 09:00 12/06/19 18:39 DC 12/06/19 07:58 10 MG Ascorbic Acid (Vitamin C) 500 mg BID 12/04/19 21:00 12/07/19 08:46 500 MG Aspirin (Aspirin Chewable) 81 mg DAILY 11/29/19 09:00 12/07/19 09:00 81 MG Atorvastatin Calcium (Lipitor) 40 mg QHS 11/28/19 21:00 12/06/19 20:21 40 MG Atropine Sulfate (ATROPINE 0.5mg SYRINGE) 0.5 mg PRN Q5MIN PRN 12/07/19 07:30 Atropine Sulfate (ATROPINE 1mg SYRINGE) 1 mg STK-MED ONCE 12/08/19 09:07 12/08/19 09:07 DC Cyclobenzaprine HCl (Flexeril) 10 mg PRN TID PRN 12/02/19 06:45 12/06/19 20:16 10 MG Dexmedetomidine HCl 400 mcg/ Sodium Chloride 100 ml @ 7.23 mls/hr CONT PRN 12/07/19 07:30 12/07/19 12:52 7.23 MLS/HR Dextrose (Dextrose 50%-Water Syringe) 12.5 gm PRN Q15MIN PRN 12/01/19 12:15 Diltiazem HCl (Cardizem Iv Push) 10 mg 1X ONCE 12/07/19 09:00 12/07/19 09:01 DC 12/07/19 09:13 10 MG Diltiazem HCl 125 mg/Sodium Chloride 125 ml @ 5 mls/hr CONT PRN 12/07/19 09:00 12/07/19 09:33 5 MLS/HR Enoxaparin Sodium (Lovenox 40mg Syringe) 40 mg Q12HR 11/29/19 09:00 11/30/19 10:00 DC 11/29/19 20:52 40 MG Enoxaparin Sodium (Lovenox 80mg Syringe) 80 mg 1X ONCE 11/28/19 19:00 11/28/19 19:01 DC 11/28/19 19:10 80 MG Epinephrine HCl (EPINEPHrine SYRINGE) 1 mg 1X ONCE 12/08/19 09:45 12/08/19 09:50 DC 12/08/19 08:19 1 MG Famotidine (Pepcid Vial) 20 mg DAILY 12/04/19 09:00 12/08/19 08:48 20 MG Fentanyl Citrate 55 ml @ 0 mls/hr CONT PRN PRN 12/07/19 21:30 12/07/19 21:55 2 MLS/HR Fentanyl Citrate (Fentanyl 2ml Vial) 50 mcg PRN Q1HR PRN 12/07/19 19:45 Furosemide (Lasix) 40 mg 1X ONCE 12/06/19 12:30 12/06/19 12:31 DC 12/06/19 12:50 40 MG Glipizide (Glucotrol) 2.5 mg DAILY 11/29/19 09:00 12/01/19 08:12 DC 11/30/19 08:44 2.5 MG Haloperidol Lactate (Haldol Inj) 2.5 mg PRN Q6HRS PRN 12/06/19 10:45 12/07/19 03:19 2.5 MG Heparin Sodium (Porcine) (Heparin Sodium) 2,150 unit PRN Q6HRS PRN 12/07/19 10:45 Heparin Sodium/ Dextrose 250 ml @ 20 mls/hr CONT PRN 12/07/19 10:45 12/08/19 04:35 18.7 MLS/HR Hydralazine HCl (Apresoline Inj) 20 mg PRN Q4HRS PRN 12/06/19 15:30 12/07/19 06:10 20 MG Hydrochlorothiazide (Hydrodiuril) 25 mg DAILY 11/29/19 09:00 12/01/19 12:52 DC 12/01/19 08:17 25 MG Info (Icu Electrolyte Protocol) 1 ea DAILY 11/29/19 09:00 11/28/19 18:16 DC Insulin Glargine (Lantus Syringe) 30 unit BID 12/01/19 21:00 12/07/19 09:13 30 UNIT Insulin Human Lispro (HumaLOG) 9 units 1X ONCE 12/01/19 21:30 12/01/19 21:31 DC 12/01/19 21:16 9 UNITS Lactobacillus Rhamnosus (Culturelle) 1 cap BID 12/02/19 21:00 12/07/19 08:46 1 CAP Lactulose (Lactulose) 20 gm PRN Q12HR PRN 11/28/19 17:45 Lisinopril (Prinivil) 40 mg DAILY 11/29/19 09:00 12/01/19 12:52 DC 12/01/19 08:19 40 MG Lorazepam (Ativan Inj) 0.5 mg PRN Q6HRS PRN 11/28/19 17:45 12/06/19 22:50 0.5 MG Magnesium Sulfate 50 ml @ 25 mls/hr 1X ONCE 12/07/19 09:45 12/07/19 11:44 DC 12/07/19 11:05 25 MLS/HR Methylprednisolone Sodium Succinate (SOLU-Medrol 40MG VIAL) 40 mg Q8HRS 12/03/19 14:00 12/08/19 06:21 40 MG Methylprednisolone Sodium Succinate (SOLU-Medrol 125MG VIAL) 60 mg Q8HRS 11/30/19 09:00 12/03/19 10:50 DC 12/03/19 05:38 60 MG Metoprolol Tartrate (Lopressor) 25 mg PRN BID PRN 12/05/19 22:30 Cancel Midazolam HCl 100 ml @ 0 mls/hr CONT PRN 12/07/19 19:45 12/08/19 03:16 8 MLS/HR Morphine Sulfate (Morphine Sulfate) 1 mg PRN Q1HR PRN 11/28/19 17:45 Nicardipine HCl 50 mg/Sodium Chloride 250 ml @ 25 mls/hr CONT PRN 12/06/19 18:45 12/07/19 09:32 50 MLS/HR Ondansetron HCl (Zofran) 4 mg PRN Q6HRS PRN 11/28/19 17:45 Piperacillin Sod/ Tazobactam Sod (Zosyn Per Pharmacy) 1 each PRN DAILY PRN 11/30/19 08:45 Piperacillin Sod/ Tazobactam Sod 3.375 gm/Sodium Chloride 50 ml @ 100 mls/hr Q6HRS 11/30/19 12:00 12/08/19 06:21 100 MLS/HR Potassium Chloride (Klor-Con) 40 meq 1X ONCE 11/29/19 16:45 11/29/19 16:46 DC 11/29/19 17:15 40 MEQ Propofol 100 ml @ 0 mls/hr CONT PRN 12/07/19 20:00 12/08/19 06:22 8.6 MLS/HR Senna/Docusate Sodium (Senna Plus) 1 tab BID 11/28/19 21:00 12/07/19 09:00 1 TAB Sodium Chloride 500 ml @ 500 mls/hr 1X PRN PRN 12/07/19 07:30 Sodium Chloride (Normal Saline Flush) 3 ml QSHIFT PRN 11/28/19 17:45 Sterile Water (WATER for RESP) 1,000 ml CONT PRN 11/30/19 17:30 12/07/19 15:37 1,000 ML Tamsulosin HCl (Flomax) 0.4 mg DAILY 11/29/19 09:00 12/07/19 08:46 0.4 MG Thiamine Mononitrate (Vitamin B-1) 100 mg BID 12/04/19 21:00 12/07/19 08:46 100 MG Thiamine HCl 200 mg/Dextrose 52 ml @ 102 mls/hr Q12HR 11/28/19 19:30 12/04/19 14:59 DC 12/04/19 09:23 102 MLS/HR Vitamin D (Vitamin D3) 1,000 unit BID 11/28/19 21:00 12/07/19 08:46 1,000 UNIT Zinc Sulfate (Orazinc) 220 mg DAILY 11/29/19 09:00 12/07/19 08:46 220 MG Lab Laboratory Tests Test 12/07/19 19:42 12/07/19 21:37 12/07/19 22:00 12/08/19 00:02 O2 Saturation 91 % (92-99) Arterial Blood pH 7.37 (7.35-7.45) Arterial Blood pCO2 at Patient Temp 49 mmHg (35-46) Arterial Blood pO2 at Patient Temp 69 mmHg (65-108) Arterial Blood HCO3 28 mmol/L (21-28) Arterial Blood Base Excess 2 mmol/L (-3-3) Oxyhemoglobin 90.6 % Methemoglobin 0.2 % (0.0-1.9) Carbon Monoxide, Quantitative 0.3 % (0.0-1.9) FiO2 100 Glucose (Fingerstick) 121 mg/dL (70-99) 118 mg/dL (70-99) Heparin Anti-Xa Act, Unfractionated > 1.10 IU/mL (0.30-0.70) Test 12/08/19 05:00 12/08/19 07:45 12/08/19 08:51 12/08/19 10:22 White Blood Count 9.7 x10^3/uL (4.0-11.0) Red Blood Count 3.37 x10^6/uL (4.30-5.70) Hemoglobin 10.3 g/dL (13.0-17.5) Hematocrit 31.2 % (39.0-53.0) Mean Corpuscular Volume 93 fL (79-100) Mean Corpuscular Hemoglobin 31 pg (25-35) Mean Corpuscular Hemoglobin Concent 33 g/dL (31-37) Red Cell Distribution Width 14.2 % (11.5-14.5) Platelet Count 239 x10^3/uL (140-400) Neutrophils (%) (Auto) 93 % (31-73) Lymphocytes (%) (Auto) 4 % (24-48) Monocytes (%) (Auto) 2 % (0-9) Eosinophils (%) (Auto) 1 % (0-3) Basophils (%) (Auto) 0 % (0-3) Neutrophils # (Auto) 9.1 x10^3/uL (1.8-7.7) Lymphocytes # (Auto) 0.4 x10^3/uL (1.0-4.8) Monocytes # (Auto) 0.2 x10^3/uL (0.0-1.1) Eosinophils # (Auto) 0.1 x10^3/uL (0.0-0.7) Basophils # (Auto) 0.0 x10^3/uL (0.0-0.2) Heparin Anti-Xa Act, Unfractionated > 1.10 IU/mL (0.30-0.70) > 1.10 IU/mL (0.30-0.70) Sodium Level 146 mmol/L (136-145) Potassium Level 4.1 mmol/L (3.5-5.1) Chloride Level 110 mmol/L (98-107) Carbon Dioxide Level 30 mmol/L (21-32) Anion Gap 6 (6-14) Blood Urea Nitrogen 34 mg/dL (8-26) Creatinine 1.6 mg/dL (0.7-1.3) Estimated GFR (Cockcroft-Gault) 52.1 BUN/Creatinine Ratio 21 (6-20) Glucose Level 121 mg/dL (70-99) Calcium Level 7.7 mg/dL (8.5-10.1) Magnesium Level 2.0 mg/dL (1.8-2.4) Total Bilirubin 0.4 mg/dL (0.2-1.0) Aspartate Amino Transf (AST/SGOT) 45 U/L (15-37) Alanine Aminotransferase (ALT/SGPT) 52 U/L (16-63) Alkaline Phosphatase 154 U/L (46-116) Total Protein 5.5 g/dL (6.4-8.2) Albumin 1.4 g/dL (3.4-5.0) Albumin/Globulin Ratio 0.3 (1.0-1.7) O2 Saturation 88 % (92-99) Arterial Blood pH 7.44 (7.35-7.45) Arterial Blood pCO2 at Patient Temp 39 mmHg (35-46) Arterial Blood pO2 at Patient Temp 54 mmHg (65-108) Arterial Blood HCO3 26 mmol/L (21-28) Arterial Blood Base Excess 2 mmol/L (-3-3) FiO2 100 Glucose (Fingerstick) 118 mg/dL (70-99) Results All relevant outside records, renal labs, imaging studies, telemetry/EKG's were reviewed. Justicifation of Admission Dx: Justifications for Admission: Justification of Admission Dx: Yes Sepsis: Hypoxemia YUDY MARTINEZ MD Dec 08, 2019 11:18
--- NOTE | 2019-12-08 11:25 | RAD ---
PORTABLE CHEST 1V INDICATION: Reason: Intubation, covid f/u ICU#114 / Spl. Instructions: / History: . COMPARISON STUDY: 12/07/2019. FINDINGS: Life Support Devices: Stable endotracheal tube. Lungs: Low lung volume. Bilateral perihilar and basilar opacities, slightly improved in the lung bases. Pleura: Improved or redistributed small bilateral pleural effusions. Heart and Mediastinum: Stable cardiomediastinal silhouette and great vessels. Bones and Soft Tissues: Stable regional skeleton and soft tissues. IMPRESSION: 1. Bilateral perihilar and basilar opacities, slightly improved in the lung bases. 2. Improved or redistributed small bilateral pleural effusions. 3. Stable endotracheal tube. Electronically signed by: Alexandre Lucas MD (12/08/2019 11:21 AM) [id number]
--- NOTE | 2019-12-08 11:40 | RAD ---
AP chest. HISTORY: Central line placement Portable AP views were taken of the chest. There is a right neck central line although the exact location of the line is difficult to determine, an external jugular line is possible extending into the subclavian vein, clinical correlation would be of benefit. Endotracheal tube is unchanged at the level the clavicles. NG tube extends into the stomach in good position. There are diffuse bilateral infiltrates. IMPRESSION: 1. Line noted on the right side the neck could be an external jugular line extending to the subclavian vein but exact positioning is difficult to determine, clinical correlation would be of benefit. 2. Endotracheal tube unchanged. 3. NG tube extends into the stomach. 4. Bilateral infiltrates without change. Electronically signed by: Wilfredo Warren MD (12/08/2019 11:37 AM) [id number]
[2019-12-08] MEDS ORDERED: REMDESIVIR LOAD in IV NORMAL SALINE 250ML TV IV ONE (12:00)
[2019-12-08] MEDS: ASCORBIC ACID 500 MG TABLET PO SCH ×2 (12:34→20:12)
[2019-12-08] MEDS: ASPIRIN CHEWABLE 81 MG TABLET. PO SCH (12:34)
[2019-12-08] MEDS: CHOLECALCIFEROL (VITAMIN D3) 1,000 UNIT TABLET PO SCH ×2 (12:34→20:12)
[2019-12-08] MEDS: LACTOBACILLUS RHAMNOSUS GG 1 CAPSULE. PO SCH ×2 (12:34→20:12)
[2019-12-08] MEDS: SENNOSIDES/DOCUSATE 8.6/50MG TABLET. PO SCH ×2 (12:34→20:12)
[2019-12-08] MEDS: THIAMINE 100 MG TABLET. PO SCH ×2 (12:34→20:12)
[2019-12-08] MEDS: TAMSULOSIN 0.4 MG CAP.ER.24H. PO SCH (12:34)
[2019-12-08] MEDS: ZINC SULFATE 220 MG CAPSULE. PO SCH (12:34)
--- NOTE | 2019-12-08 15:12 | NUR ---
SS following up with discharge planning. SS reviewed pt chart and discussed with pt RN. Pt remains on the vent at this time. COVID19 positive. Pt on IV Zosyn. SS phoned and faxed referral to [facility], ; fax [phone]. SS will continue to follow for discharge planning.
[2019-12-08] MEDS: ATORVASTATIN CALCIUM 40 MG TABLET. PO SCH (20:12)
[2019-12-09] VITALS (24 sets, daily range): BP systolic 125–190; BP diastolic 46–102
[2019-12-09] MEDS: fentaNYL HIGH DOSE PCA 55 ML IV PRN (04:53)
[2019-12-09] MEDS: PIPERACILLIN/TAZOBACTAM 3.375 GM in IV NORMAL SALINE 50ML 50 ML IV SCH ×3 (05:37→17:38)
[2019-12-09] MEDS: methylPREDNISolone SOD SUCC PF 40 MG/ML VIAL. IV SCH ×3 (05:37→21:30)
[2019-12-09] MEDS: INSULIN LISPRO 300 UNITS/3 ML VIAL. SQ SCH ×3 (05:38→17:41)
[2019-12-09 05:42] LABS: HEMATOCRIT 32.7 % (39.0-53.0); HEMOGLOBIN 10.9 g/dL (13.0-17.5); RED BLOOD COUNT 3.51 x10^6/uL (4.30-5.70); RED CELL DISTRIBUTION WIDTH 14.3 % (11.5-14.5)
[2019-12-09 05:56] LABS: CALCIUM 8.1 mg/dL (8.5-10.1); CREATININE 1.5 mg/dL (0.7-1.3); GFR 56.1; POTASSIUM 3.9 mmol/L (3.5-5.1)
[2019-12-09] MEDS: hydrALAZINE 20 MG/ML VIAL. IVP PRN ×3 (07:35→22:33)
[2019-12-09] MEDS: ASCORBIC ACID 500 MG TABLET PO SCH ×2 (08:34→21:25)
[2019-12-09] MEDS: THIAMINE 100 MG TABLET. PO SCH ×2 (08:34→21:25)
[2019-12-09] MEDS: ZINC SULFATE 220 MG CAPSULE. PO SCH (08:34)
[2019-12-09] MEDS: TAMSULOSIN 0.4 MG CAP.ER.24H. PO SCH (08:34)
[2019-12-09] MEDS: ASPIRIN CHEWABLE 81 MG TABLET. PO SCH (08:34)
[2019-12-09] MEDS: SENNOSIDES/DOCUSATE 8.6/50MG TABLET. PO SCH ×2 (08:34→21:25)
[2019-12-09] MEDS: LACTOBACILLUS RHAMNOSUS GG 1 CAPSULE. PO SCH ×2 (08:34→21:25)
[2019-12-09] MEDS: FAMOTIDINE 20 MG/2 ML VIAL IVP SCH (08:35)
[2019-12-09] MEDS: CHOLECALCIFEROL (VITAMIN D3) 1,000 UNIT TABLET PO SCH ×2 (08:35→21:25)
[2019-12-09 09:06] LABS: BASE EXCESS ABG 0 mmol/L (-3-3); HCO3 ABG 26 mmol/L (21-28); PCO2 ABG 46 mmHg (35-46); PO2 ABG 55 mmHg (65-108); SAT O2 ABG 86 % (92-99)
[2019-12-09] MEDS: INSULIN GLARGINE SYRINGE. SQ SCH ×2 (09:13→21:26)
[2019-12-09 09:17] LABS: FIO2 ABG 90
--- NOTE | 2019-12-09 10:02 | RAD ---
PORTABLE CHEST 1V INDICATION: Reason: Intubation / Spl. Instructions: / History: . COMPARISON STUDY: 12/08/2019. FINDINGS: Life Support Devices: Stable endotracheal tube, enteric tube, and right IJ central venous catheter. Lungs: Normal lung volume. Stable diffuse bilateral heterogeneous opacities. Pleura: Stable pleural spaces. Heart and Mediastinum: Stable cardiomediastinal silhouette and great vessels. Bones and Soft Tissues: Stable regional skeleton and soft tissues. IMPRESSION: 1. Stable life support devices. 2. Stable diffuse bilateral heterogeneous opacities. Electronically signed by: Alexandre Lucas MD (12/09/2019 9:59 AM) [facility]
--- NOTE | 2019-12-09 10:36 | PDOC ---
PULMONARY PROGRESS NOTES DATE: 12/09/19 TIME: 10:29 Subjective Patient became increasingly more short of air, decreased sats, did not tolerate BiPAP intubated 12/07 remains on AC mode, high flow FIO2 Vitals Vital Signs Date Time Temp Pulse Resp B/P (MAP) Pulse Ox O2 Delivery O2 Flow Rate FiO2 12/09/19 08:00 63 146/56 (86) 12/09/19 07:48 99 Ventilator 12/09/19 07:00 24 12/09/19 04:00 97.5 97.5 Comments visual exam done Now on assist control ventilation appears to be in sync some edema noted to the lower extremities General: No acute distress Labs Laboratory Tests Test 12/07/19 10:59 12/07/19 19:42 12/07/19 21:37 12/07/19 22:00 Glucose (Fingerstick) 93 mg/dL (70-99) 121 mg/dL (70-99) O2 Saturation 91 % (92-99) Arterial Blood pH 7.37 (7.35-7.45) Arterial Blood pCO2 at Patient Temp 49 mmHg (35-46) Arterial Blood pO2 at Patient Temp 69 mmHg (65-108) Arterial Blood HCO3 28 mmol/L (21-28) Arterial Blood Base Excess 2 mmol/L (-3-3) Oxyhemoglobin 90.6 % Methemoglobin 0.2 % (0.0-1.9) Carbon Monoxide, Quantitative 0.3 % (0.0-1.9) FiO2 100 Heparin Anti-Xa Act, Unfractionated > 1.10 IU/mL (0.30-0.70) Test 12/08/19 00:02 12/08/19 05:00 12/08/19 07:45 12/08/19 08:51 Glucose (Fingerstick) 118 mg/dL (70-99) 118 mg/dL (70-99) White Blood Count 9.7 x10^3/uL (4.0-11.0) Red Blood Count 3.37 x10^6/uL (4.30-5.70) Hemoglobin 10.3 g/dL (13.0-17.5) Hematocrit 31.2 % (39.0-53.0) Mean Corpuscular Volume 93 fL (79-100) Mean Corpuscular Hemoglobin 31 pg (25-35) Mean Corpuscular Hemoglobin Concent 33 g/dL (31-37) Red Cell Distribution Width 14.2 % (11.5-14.5) Platelet Count 239 x10^3/uL (140-400) Neutrophils (%) (Auto) 93 % (31-73) Lymphocytes (%) (Auto) 4 % (24-48) Monocytes (%) (Auto) 2 % (0-9) Eosinophils (%) (Auto) 1 % (0-3) Basophils (%) (Auto) 0 % (0-3) Neutrophils # (Auto) 9.1 x10^3/uL (1.8-7.7) Lymphocytes # (Auto) 0.4 x10^3/uL (1.0-4.8) Monocytes # (Auto) 0.2 x10^3/uL (0.0-1.1) Eosinophils # (Auto) 0.1 x10^3/uL (0.0-0.7) Basophils # (Auto) 0.0 x10^3/uL (0.0-0.2) Heparin Anti-Xa Act, Unfractionated > 1.10 IU/mL (0.30-0.70) Sodium Level 146 mmol/L (136-145) Potassium Level 4.1 mmol/L (3.5-5.1) Chloride Level 110 mmol/L (98-107) Carbon Dioxide Level 30 mmol/L (21-32) Anion Gap 6 (6-14) Blood Urea Nitrogen 34 mg/dL (8-26) Creatinine 1.6 mg/dL (0.7-1.3) Estimated GFR (Cockcroft-Gault) 52.1 BUN/Creatinine Ratio 21 (6-20) Glucose Level 121 mg/dL (70-99) Calcium Level 7.7 mg/dL (8.5-10.1) Magnesium Level 2.0 mg/dL (1.8-2.4) Total Bilirubin 0.4 mg/dL (0.2-1.0) Aspartate Amino Transf (AST/SGOT) 45 U/L (15-37) Alanine Aminotransferase (ALT/SGPT) 52 U/L (16-63) Alkaline Phosphatase 154 U/L (46-116) Total Protein 5.5 g/dL (6.4-8.2) Albumin 1.4 g/dL (3.4-5.0) Albumin/Globulin Ratio 0.3 (1.0-1.7) O2 Saturation 88 % (92-99) Arterial Blood pH 7.44 (7.35-7.45) Arterial Blood pCO2 at Patient Temp 39 mmHg (35-46) Arterial Blood pO2 at Patient Temp 54 mmHg (65-108) Arterial Blood HCO3 26 mmol/L (21-28) Arterial Blood Base Excess 2 mmol/L (-3-3) FiO2 100 Test 12/08/19 10:22 12/08/19 12:34 12/08/19 18:14 12/08/19 18:25 Heparin Anti-Xa Act, Unfractionated > 1.10 IU/mL (0.30-0.70) 0.93 IU/mL (0.30-0.70) Glucose (Fingerstick) 138 mg/dL (70-99) 159 mg/dL (70-99) Test 12/08/19 20:20 12/08/19 23:48 12/09/19 01:00 12/09/19 05:00 Glucose (Fingerstick) 160 mg/dL (70-99) 190 mg/dL (70-99) Heparin Anti-Xa Act, Unfractionated 0.52 IU/mL (0.30-0.70) White Blood Count 10.0 x10^3/uL (4.0-11.0) Red Blood Count 3.51 x10^6/uL (4.30-5.70) Hemoglobin 10.9 g/dL (13.0-17.5) Hematocrit 32.7 % (39.0-53.0) Mean Corpuscular Volume 93 fL (79-100) Mean Corpuscular Hemoglobin 31 pg (25-35) Mean Corpuscular Hemoglobin Concent 33 g/dL (31-37) Red Cell Distribution Width 14.3 % (11.5-14.5) Platelet Count 266 x10^3/uL (140-400) Sodium Level 145 mmol/L (136-145) Potassium Level 3.9 mmol/L (3.5-5.1) Chloride Level 110 mmol/L (98-107) Carbon Dioxide Level 27 mmol/L (21-32) Anion Gap 8 (6-14) Blood Urea Nitrogen 44 mg/dL (8-26) Creatinine 1.5 mg/dL (0.7-1.3) Estimated GFR (Cockcroft-Gault) 56.1 Glucose Level 226 mg/dL (70-99) Calcium Level 8.1 mg/dL (8.5-10.1) Test 12/09/19 05:10 12/09/19 06:45 12/09/19 08:00 12/09/19 08:40 Glucose (Fingerstick) 204 mg/dL (70-99) 215 mg/dL (70-99) Heparin Anti-Xa Act, Unfractionated 0.36 IU/mL (0.30-0.70) O2 Saturation 86 % (92-99) Arterial Blood pH 7.37 (7.35-7.45) Arterial Blood pCO2 at Patient Temp 46 mmHg (35-46) Arterial Blood pO2 at Patient Temp 55 mmHg (65-108) Arterial Blood HCO3 26 mmol/L (21-28) Arterial Blood Base Excess 0 mmol/L (-3-3) FiO2 90 Laboratory Tests Test 12/08/19 12:34 12/08/19 18:14 12/08/19 18:25 12/08/19 20:20 Glucose (Fingerstick) 138 mg/dL (70-99) 159 mg/dL (70-99) 160 mg/dL (70-99) Heparin Anti-Xa Act, Unfractionated 0.93 IU/mL (0.30-0.70) Test 12/08/19 23:48 12/09/19 01:00 12/09/19 05:00 12/09/19 05:10 Glucose (Fingerstick) 190 mg/dL (70-99) 204 mg/dL (70-99) Heparin Anti-Xa Act, Unfractionated 0.52 IU/mL (0.30-0.70) White Blood Count 10.0 x10^3/uL (4.0-11.0) Red Blood Count 3.51 x10^6/uL (4.30-5.70) Hemoglobin 10.9 g/dL (13.0-17.5) Hematocrit 32.7 % (39.0-53.0) Mean Corpuscular Volume 93 fL (79-100) Mean Corpuscular Hemoglobin 31 pg (25-35) Mean Corpuscular Hemoglobin Concent 33 g/dL (31-37) Red Cell Distribution Width 14.3 % (11.5-14.5) Platelet Count 266 x10^3/uL (140-400) Sodium Level 145 mmol/L (136-145) Potassium Level 3.9 mmol/L (3.5-5.1) Chloride Level 110 mmol/L (98-107) Carbon Dioxide Level 27 mmol/L (21-32) Anion Gap 8 (6-14) Blood Urea Nitrogen 44 mg/dL (8-26) Creatinine 1.5 mg/dL (0.7-1.3) Estimated GFR (Cockcroft-Gault) 56.1 Glucose Level 226 mg/dL (70-99) Calcium Level 8.1 mg/dL (8.5-10.1) Test 12/09/19 06:45 12/09/19 08:00 12/09/19 08:40 Heparin Anti-Xa Act, Unfractionated 0.36 IU/mL (0.30-0.70) O2 Saturation 86 % (92-99) Arterial Blood pH 7.37 (7.35-7.45) Arterial Blood pCO2 at Patient Temp 46 mmHg (35-46) Arterial Blood pO2 at Patient Temp 55 mmHg (65-108) Arterial Blood HCO3 26 mmol/L (21-28) Arterial Blood Base Excess 0 mmol/L (-3-3) FiO2 90 Glucose (Fingerstick) 215 mg/dL (70-99) Medications Active Scripts Medications Dose Route/Sig Max Daily Dose Days Date Category [place] 5-325 Tablet (Acetaminophen/Hydrocodone Bitart) 1 Each Tablet 1 Tab PO PRN Q6HRS PRN 03/20/18 Rx Orphenadrine Citrate 100 Mg Tablet.er 1 Tab PO BID 03/20/18 Rx Amlodipine Besylate 5 Mg Tablet 5 Mg PO DAILY 02/20/17 Rx Lisinopril 40 Mg Tablet 40 Mg PO DAILY 02/18/17 Reported Glipizide 5 Mg Tablet 2.5 Mg PO DAILY 02/18/17 Reported Hydrochlorothiazide Tablet (Hydrochlorothiazide) 12.5 Mg Tablet 25 Mg PO DAILY 02/18/17 Reported Furosemide 20 Mg Tablet 20 Mg PO DAILY 02/18/17 Reported Tamsulosin Hcl 0.4 Mg Cap.er.24h 1 Cap PO DAILY 02/18/17 Reported Aspirin 81 Mg Tab.chew 81 Mg PO DAILY 02/18/17 Reported Metformin Hcl 500 Mg Tablet 500 Mg PO DAILY 02/18/17 Reported Comments CXR Impression: Bilateral perihilar infiltrates. CXR 12/05/19 Impression: Slight interval increase in the bilateral perihilar infiltrates. Impression . 1. Acute hypoxic respiratory failure secondary to COVID-19 pneumonia/acute lung injury/early acute respiratory distress syndrome. 2. Abnormal chest x-ray with bilateral interstitial infiltrates, suggestive of COVID-19 pneumonia.-- 3. No significant tobacco history. 4. Acute kidney injury on top of CKD with baseline cr of 1.3--- stable 5. Severe protein-calorie malnutrition. 6. Abnormal D-dimer, likely related to COVID pneumonia. 7. New onset A. fib with rapid ventricular response Chest x-ray IMPRESSION: 1. Bilateral perihilar and basilar opacities, slightly improved in the lung bases. 2. Improved or redistributed small bilateral pleural effusions. 3. Stable endotracheal tube. Plan . Intubated 12/07 for increasing shortness of air and decrease saturation remains on AC mode make changes based on FIO2. on 95%FIO2 Initiated Remdesivir 12/07 Follow cardiology input for new onset A. fib Lasix as needed Continue steroids with taper for COVID-19 pneumonia, will need total of 10 days empiric antibiotics Follow renal recommendations, cr improving slowly S/P plasma D-dimers elevated secondary to, patient on full dose hep (for A-fib) Pt accepted at [facility] but not stable for transfer DVT/GI PPX - D/W RN and RT TOTAL CRITICAL CARE TIME: 30 minutes. ABBY MOORE MD Dec 09, 2019 10:36
--- NOTE | 2019-12-09 10:55 | PDOC ---
DATE OF SERVICE DATE: 12/09/19 TIME: 10:51 SUBJECTIVE ROS Remains Intubated OBJECTIVE Vital Signs Vital Signs Date Time Temp Pulse Resp B/P (MAP) Pulse Ox O2 Delivery O2 Flow Rate FiO2 12/09/19 10:00 66 25 160/58 (92) 95 Ventilator 12/09/19 08:00 97.7 97.7 I & 0 Intake and Output 12/09/19 07:00 Intake Total 3259.00 ml Output Total 1415 ml Balance 1844.00 ml IV Total 1424.00 ml Tube Feeding 1435 ml Other 400 ml Output Urine Total 1415 ml PHYSICAL EXAM Physical Exam Visual Exam (During Global CoViD 19 pandemic) GEN.: Intubated, On MV HEENT: Head is normocephalic LUNGS: No use of accessory muscles HEART: RRR, ABDOMEN: obese, EXTREMITIES: Trace Bilat LE edema + NEUROLOGIC: sedated SKIN: No rash Pringle + DIAGNOSIS/ASSESSMENT Assessment & Plan CHAYITO - ATN , peaked at 4.1 --> 1.5, Improving Good UOP Supportive care, Strict I/O, Avoid Nephrotoxins CKD stage 3- Cr in [facility] records 1.3 in 2017 No Interval labs HyperNatremia - Mild (after correcting for glucose) Continue with free water flushes Acute hypoxic respiratory failure secondary to COVID-19 pneumonia/acute lung injury/early acute respiratory distress syndrome. Abnormal chest x-ray with bilateral interstitial infiltrates.Intubated , On MV Abnormal D-dimer, likely related to COVID pneumonia. Diabetes-Type II Hypertension Severe protein calorie malnutrition COMMENT/RELEVANT DATA Meds Current Medications Medications (Trade) Dose Ordered Sig/Quinn Start Time Stop Time Status Last Admin Dose Admin Acetaminophen (Tylenol) 650 mg PRN Q6HRS PRN 11/28/19 17:45 11/30/19 08:45 650 MG Acetaminophen/ Hydrocodone Bitart (Lortab 5/325) 1 tab PRN Q6HRS PRN 11/28/19 17:45 UNV Amlodipine Besylate (Norvasc) 10 mg DAILY 12/04/19 09:00 12/06/19 18:39 DC 12/06/19 07:58 10 MG Ascorbic Acid (Vitamin C) 500 mg BID 12/04/19 21:00 12/09/19 08:34 500 MG Aspirin (Aspirin Chewable) 81 mg DAILY 11/29/19 09:00 12/09/19 08:34 81 MG Atorvastatin Calcium (Lipitor) 40 mg QHS 11/28/19 21:00 12/08/19 20:12 40 MG Atropine Sulfate (ATROPINE 0.5mg SYRINGE) 0.5 mg PRN Q5MIN PRN 12/07/19 07:30 Atropine Sulfate (ATROPINE 1mg SYRINGE) 1 mg STK-MED ONCE 12/08/19 09:30 12/09/19 09:05 DC Cyclobenzaprine HCl (Flexeril) 10 mg PRN TID PRN 12/02/19 06:45 12/06/19 20:16 10 MG Dexmedetomidine HCl 400 mcg/ Sodium Chloride 100 ml @ 7.23 mls/hr CONT PRN 12/07/19 07:30 12/07/19 12:52 7.23 MLS/HR Dextrose (Dextrose 50%-Water Syringe) 12.5 gm PRN Q15MIN PRN 12/01/19 12:15 Diltiazem HCl (Cardizem Iv Push) 10 mg 1X ONCE 12/07/19 09:00 12/07/19 09:01 DC 12/07/19 09:13 10 MG Diltiazem HCl 125 mg/Sodium Chloride 125 ml @ 5 mls/hr CONT PRN 12/07/19 09:00 12/07/19 09:33 5 MLS/HR Enoxaparin Sodium (Lovenox 40mg Syringe) 40 mg Q12HR 11/29/19 09:00 11/30/19 10:00 DC 11/29/19 20:52 40 MG Enoxaparin Sodium (Lovenox 80mg Syringe) 80 mg 1X ONCE 11/28/19 19:00 11/28/19 19:01 DC 11/28/19 19:10 80 MG Ephedrine Sulfate (ePHEDrine PF IN SALINE SYRINGE) 50 mg STK-MED ONCE 12/07/19 12:00 12/09/19 08:49 DC Epinephrine HCl (EPINEPHrine SYRINGE) 2 mg STK-MED ONCE 12/08/19 09:30 12/09/19 09:05 DC Etomidate (Amidate) 20 mg STK-MED ONCE 12/07/19 12:00 12/09/19 08:48 DC Famotidine (Pepcid Vial) 20 mg DAILY 12/04/19 09:00 12/09/19 08:35 20 MG Fentanyl Citrate 55 ml @ 0 mls/hr CONT PRN PRN 12/07/19 21:30 12/09/19 04:53 1.5 MLS/HR Fentanyl Citrate (Fentanyl 2ml Vial) 50 mcg PRN Q1HR PRN 12/07/19 19:45 Furosemide (Lasix) 40 mg 1X ONCE 12/06/19 12:30 12/06/19 12:31 DC 12/06/19 12:50 40 MG Glipizide (Glucotrol) 2.5 mg DAILY 11/29/19 09:00 12/01/19 08:12 DC 11/30/19 08:44 2.5 MG Haloperidol Lactate (Haldol Inj) 2.5 mg PRN Q6HRS PRN 12/06/19 10:45 12/07/19 03:19 2.5 MG Heparin Sodium (Porcine) (Heparin Sodium) 2,150 unit PRN Q6HRS PRN 12/07/19 10:45 Heparin Sodium/ Dextrose 250 ml @ 20 mls/hr CONT PRN 12/07/19 10:45 12/08/19 04:35 18.7 MLS/HR Hydralazine HCl (Apresoline Inj) 20 mg PRN Q4HRS PRN 12/06/19 15:30 12/09/19 07:35 20 MG Hydrochlorothiazide (Hydrodiuril) 25 mg DAILY 11/29/19 09:00 12/01/19 12:52 DC 12/01/19 08:17 25 MG Info (Icu Electrolyte Protocol) 1 ea DAILY 11/29/19 09:00 11/28/19 18:16 DC Insulin Glargine (Lantus Syringe) 30 unit BID 12/01/19 21:00 12/09/19 09:13 30 UNIT Insulin Human Lispro (HumaLOG) 0-9 UNITS Q6HRS 12/08/19 18:00 12/09/19 05:38 5 UNITS Lactobacillus Rhamnosus (Culturelle) 1 cap BID 12/02/19 21:00 12/09/19 08:34 1 CAP Lactulose (Lactulose) 20 gm PRN Q12HR PRN 11/28/19 17:45 Lisinopril (Prinivil) 40 mg DAILY 11/29/19 09:00 12/01/19 12:52 DC 12/01/19 08:19 40 MG Lorazepam (Ativan Inj) 0.5 mg PRN Q6HRS PRN 11/28/19 17:45 12/06/19 22:50 0.5 MG Magnesium Sulfate 50 ml @ 25 mls/hr 1X ONCE 12/07/19 09:45 12/07/19 11:44 DC 12/07/19 11:05 25 MLS/HR Methylprednisolone Sodium Succinate (SOLU-Medrol 40MG VIAL) 40 mg Q8HRS 12/03/19 14:00 12/09/19 05:37 40 MG Methylprednisolone Sodium Succinate (SOLU-Medrol 125MG VIAL) 60 mg Q8HRS 11/30/19 09:00 12/03/19 10:50 DC 12/03/19 05:38 60 MG Metoprolol Tartrate (Lopressor) 25 mg PRN BID PRN 12/05/19 22:30 Cancel Midazolam HCl 100 ml @ 0 mls/hr CONT PRN 12/07/19 19:45 12/08/19 18:18 5 MLS/HR Morphine Sulfate (Morphine Sulfate) 1 mg PRN Q1HR PRN 11/28/19 17:45 Nicardipine HCl 50 mg/Sodium Chloride 250 ml @ 25 mls/hr CONT PRN 12/06/19 18:45 12/07/19 09:32 50 MLS/HR Non-Formulary Medication 1 ea/ Sodium Chloride 230 ml @ 460 mls/hr Q24H 12/09/19 12:00 12/12/19 12:29 Ondansetron HCl (Zofran) 4 mg PRN Q6HRS PRN 11/28/19 17:45 Phenylephrine HCl (PHENYLEPHRINE in 0.9% NACL PF) 1 mg STK-MED ONCE 12/07/19 12:00 12/09/19 08:49 DC Piperacillin Sod/ Tazobactam Sod (Zosyn Per Pharmacy) 1 each PRN DAILY PRN 11/30/19 08:45 Piperacillin Sod/ Tazobactam Sod 3.375 gm/Sodium Chloride 50 ml @ 100 mls/hr Q6HRS 11/30/19 12:00 12/09/19 05:37 100 MLS/HR Potassium Chloride (Klor-Con) 40 meq 1X ONCE 11/29/19 16:45 11/29/19 16:46 DC 11/29/19 17:15 40 MEQ Propofol (Diprivan) 200 mg STK-MED ONCE 12/07/19 12:00 12/09/19 08:49 DC Senna/Docusate Sodium (Senna Plus) 1 tab BID 11/28/19 21:00 12/09/19 08:34 1 TAB Sodium Chloride 500 ml @ 500 mls/hr 1X PRN PRN 12/07/19 07:30 Sodium Chloride (Normal Saline Flush) 3 ml QSHIFT PRN 11/28/19 17:45 Sterile Water (WATER for RESP) 1,000 ml CONT PRN 11/30/19 17:30 12/07/19 15:37 1,000 ML Succinylcholine Chloride (Anectine) 200 mg STK-MED ONCE 12/07/19 12:00 12/09/19 08:49 DC Tamsulosin HCl (Flomax) 0.4 mg DAILY 11/29/19 09:00 12/09/19 08:34 0.4 MG Thiamine Mononitrate (Vitamin B-1) 100 mg BID 12/04/19 21:00 12/09/19 08:34 100 MG Thiamine HCl 200 mg/Dextrose 52 ml @ 102 mls/hr Q12HR 11/28/19 19:30 12/04/19 14:59 DC 12/04/19 09:23 102 MLS/HR Vitamin D (Vitamin D3) 1,000 unit BID 11/28/19 21:00 12/09/19 08:35 1,000 UNIT Zinc Sulfate (Orazinc) 220 mg DAILY 11/29/19 09:00 12/09/19 08:34 220 MG Lab Laboratory Tests Test 12/08/19 12:34 12/08/19 18:14 12/08/19 18:25 12/08/19 20:20 Glucose (Fingerstick) 138 mg/dL (70-99) 159 mg/dL (70-99) 160 mg/dL (70-99) Heparin Anti-Xa Act, Unfractionated 0.93 IU/mL (0.30-0.70) Test 12/08/19 23:48 12/09/19 01:00 12/09/19 05:00 12/09/19 05:10 Glucose (Fingerstick) 190 mg/dL (70-99) 204 mg/dL (70-99) Heparin Anti-Xa Act, Unfractionated 0.52 IU/mL (0.30-0.70) White Blood Count 10.0 x10^3/uL (4.0-11.0) Red Blood Count 3.51 x10^6/uL (4.30-5.70) Hemoglobin 10.9 g/dL (13.0-17.5) Hematocrit 32.7 % (39.0-53.0) Mean Corpuscular Volume 93 fL (79-100) Mean Corpuscular Hemoglobin 31 pg (25-35) Mean Corpuscular Hemoglobin Concent 33 g/dL (31-37) Red Cell Distribution Width 14.3 % (11.5-14.5) Platelet Count 266 x10^3/uL (140-400) Sodium Level 145 mmol/L (136-145) Potassium Level 3.9 mmol/L (3.5-5.1) Chloride Level 110 mmol/L (98-107) Carbon Dioxide Level 27 mmol/L (21-32) Anion Gap 8 (6-14) Blood Urea Nitrogen 44 mg/dL (8-26) Creatinine 1.5 mg/dL (0.7-1.3) Estimated GFR (Cockcroft-Gault) 56.1 Glucose Level 226 mg/dL (70-99) Calcium Level 8.1 mg/dL (8.5-10.1) Test 12/09/19 06:45 12/09/19 08:00 12/09/19 08:40 Heparin Anti-Xa Act, Unfractionated 0.36 IU/mL (0.30-0.70) O2 Saturation 86 % (92-99) Arterial Blood pH 7.37 (7.35-7.45) Arterial Blood pCO2 at Patient Temp 46 mmHg (35-46) Arterial Blood pO2 at Patient Temp 55 mmHg (65-108) Arterial Blood HCO3 26 mmol/L (21-28) Arterial Blood Base Excess 0 mmol/L (-3-3) FiO2 90 Glucose (Fingerstick) 215 mg/dL (70-99) Results All relevant outside records, renal labs, imaging studies, telemetry/EKG's were reviewed. Other Cxr 12/08 Life Support Devices: Stable endotracheal tube, enteric tube, and right IJ central venous catheter. Lungs: Normal lung volume. Stable diffuse bilateral heterogeneous opacities. Pleura: Stable pleural spaces. Heart and Mediastinum: Stable cardiomediastinal silhouette and great vessels. Bones and Soft Tissues: Stable regional skeleton and soft tissues. IMPRESSION: 1. Stable life support devices. 2. Stable diffuse bilateral heterogeneous opacities. Justicifation of Admission Dx: Justifications for Admission: Justification of Admission Dx: Yes Sepsis: Hypoxemia YUDY MARTINEZ MD Dec 09, 2019 10:55
--- NOTE | 2019-12-09 10:56 | NUR ---
SS following up with discharge planning. SS reviewed pt chart and discussed with pt RN. Pt remains on the vent at this time. COVID19 positive. Pt accepted at [facility], ; fax [phone]. SS contacted pt's spouse and discussed LTACH. Pt's spouse asked SS about LTACH options. Pt's spouse notified that [facility] is not accepting COVID19 positive pt's at this time. Pt's spouse notified that pt cannot be clinically accepted at [facility] in the [facility] because his FIO2 is 95%. [facility] reported that FIO2 must be below 50% in order for them to accept. Pt's spouse understanding. Pt's family requesting a call from physician. Dr. Allen notified. SS will continue to follow for discharge planning.
--- NOTE | 2019-12-09 11:03 | SNU/HH DC ---
DISCHARGE ORDERS DISCHARGE INFORMATION: FINAL DIAGNOSIS Problems Medical Problems: (1) ARF (acute renal failure) Status: Acute (2) Fever Status: Acute (3) Hypoxemia Status: Acute (4) Sepsis Status: Acute CONDITION ON DISCHARGE: Stable CODE STATUS: Code Status: Full CUSTODIAL: SNF STAY <30 DAYS: No HOSPICE: HOSPICE: No HOSPICE EVAL & TREAT: No LTAC: ADMIT TO LTAC: Yes POST DISCHARGE ORDERS: ACTIVITY ORDERS: No restrictions DIET AFTER DISCHARGE: NPO DISCHARGE MEDICATIONS: Home Meds Active Scripts Hydrocodone/Apap 5-325 (NORCO 5-325 TABLET) 1 Each Tablet, 1 TAB PO PRN Q6HRS PRN for PAIN, #10 TAB 0 Refills Prov:CECY AQUINO [employer] INTELLIGENCE MANAGER 03/20/18 Orphenadrine Citrate (ORPHENADRINE CITRATE) 100 Mg Tablet.er, 1 TAB PO BID, #20 TAB 1 Refill Prov:CECY AQUINO COMMERCIAL INTELLIGENCE MANAGER 03/20/18 Amlodipine Besylate (AMLODIPINE BESYLATE) 5 Mg Tablet, 5 MG PO DAILY, #30 TAB Prov:POORNIMA ARGUELLO MD 02/20/17 Reported Medications Lisinopril (LISINOPRIL) 40 Mg Tablet, 40 MG PO DAILY for FOR HYPERTENSION, #30 TAB 0 Refills 02/18/17 Glipizide (GLIPIZIDE) 5 Mg Tablet, 2.5 MG PO DAILY, TAB 02/18/17 Hydrochlorothiazide (HYDROCHLOROTHIAZIDE TABLET) 12.5 Mg Tablet, 25 MG PO DAILY for DIURETIC, TAB 0 Refills 02/18/17 Furosemide (FUROSEMIDE) 20 Mg Tablet, 20 MG PO DAILY, TAB 02/18/17 Tamsulosin Hcl (TAMSULOSIN HCL) 0.4 Mg Cap.er.24h, 1 CAP PO DAILY, #30 CAP 5 Refills 02/18/17 Aspirin (ASPIRIN) 81 Mg Tab.chew, 81 MG PO DAILY, TAB.CHEW 02/18/17 Metformin Hcl (METFORMIN HCL) 500 Mg Tablet, 500 MG PO DAILY for ANTI-DIABETIC, TAB 0 Refills 02/18/17 ANGELICA BUI III, DO Dec 09, 2019 11:03
--- NOTE | 2019-12-09 11:05 | PDOC ---
[employer] PROGRESS NOTE Date of Service DOS: DATE: 12/09/19 TIME: 11:03 Chief Complaint Chief Complaint COVID 19 infection/ viral sepsis acute hypoxemic respiratory distress due to the above. Acute renal failure due to vasomotor nephropathy normocytic anemia Diabetes-Type II High Cholesterol Hypertension Severe protein calorie malnutrition History of Present Illness History of Present Illness 12-09-2019 Patient seen and examined in the [facility] ICU He remains intubated Assist-/30/09 100/90% with 7 of PEEP He is sedated with Versed propofol He is also on a heparin drip Also has fentanyl IV Discussed with case management Discussed with RN Chart reviewed I tried to call the family but no answer I left a voicemail Plan is to [facility] Mr Olvera is a 69yo M w/ PMHx Diabetes-Type II, High Cholesterol, Hypertension who was in his usual state of health until 2 days prior ot his admission when he was evaluated at [facility] and found to be positive for COVID 19 virus, patient was discharged and given instructions to follow up in the nearest medical center would his symptoms worsen, Today he felt worse and more dyspneic reason why he came to the ER, he initially requiring 1 liter of oxygen 11/28: Febrile 101 3 F overnight. Procalcitonin elevated, INR 1.4, WBC 9.1, Hb 11.9, platelets 189, NA 137, K3.4, BUN 39, CR 2.8, glucose 240. He is short of breath with cough. He is insistent he does not wish for convalescent FFP if his O2 needs continues to increase. Now on 4L NCO2. 11/29: Febrile to 101.5 F overnight. Creatinine increased to 4.1, he still very short of breath worsening cough, increased from 6 L nasal cannula overnight to 15 L nonrebreather facemask. I discussed with pulmonology to transferred out of the ICU. I have asked the patient to reconsider convalesce and FFP and will discuss with his family. 11/30: No acute events reported overnight, case discussed with nursing staff patient in no acute distress no complaints during my visit seems to be tolerating Vapotherm well hopefully he will be able to continue with improving, encourage proning position if tolerated 12/01: No acute events reported overnight, case discussed with nursing staff patient in no acute distress no complaints during my visit, given update patient's over the phone reassurance has been provided no new complaints seems to be status quo. Encourage more activity as tolerated in prone positioning 12/02: Discussed with nursing staff, no acute events overnight. Breathing well o n Vapotherm. Continue ICU monitoring. 12/03: Patient with O2 desaturation overnight. Breathing more comfortably upright position. Currently breathing on 40 L of high flow nasal cannula with 100% O2 saturation 12/07 : PLACED ON VENT OVER NIGHT, inc resp distress Vitals/I&O Vitals/I&O: Vital Signs Date Time Temp Pulse Resp B/P (MAP) Pulse Ox O2 Delivery O2 Flow Rate FiO2 12/09/19 11:00 74 28 169/57 (94) 100 Ventilator 12/09/19 08:00 97.7 97.7 I & O 12/08/19 12/08/19 12/09/19 15:00 23:00 07:00 Intake Total 250 ml 1568.00 ml 1441 ml Output Total 340 ml 500 ml 575 ml Balance -90 ml 1068.00 ml 866 ml Physical Exam Physical Exam: sedated on vent General: Cooperative Heart: Regular rate, Normal S1, Normal S2 Abdomen: Normal bowel sounds, Soft Extremities: No clubbing, No cyanosis Skin: No rashes, No breakdown Labs Labs: Laboratory Tests Test 12/08/19 12:34 12/08/19 18:14 12/08/19 18:25 12/08/19 20:20 Glucose (Fingerstick) 138 mg/dL (70-99) 159 mg/dL (70-99) 160 mg/dL (70-99) Heparin Anti-Xa Act, Unfractionated 0.93 IU/mL (0.30-0.70) Test 12/08/19 23:48 12/09/19 01:00 12/09/19 05:00 12/09/19 05:10 Glucose (Fingerstick) 190 mg/dL (70-99) 204 mg/dL (70-99) Heparin Anti-Xa Act, Unfractionated 0.52 IU/mL (0.30-0.70) White Blood Count 10.0 x10^3/uL (4.0-11.0) Red Blood Count 3.51 x10^6/uL (4.30-5.70) Hemoglobin 10.9 g/dL (13.0-17.5) Hematocrit 32.7 % (39.0-53.0) Mean Corpuscular Volume 93 fL (79-100) Mean Corpuscular Hemoglobin 31 pg (25-35) Mean Corpuscular Hemoglobin Concent 33 g/dL (31-37) Red Cell Distribution Width 14.3 % (11.5-14.5) Platelet Count 266 x10^3/uL (140-400) Sodium Level 145 mmol/L (136-145) Potassium Level 3.9 mmol/L (3.5-5.1) Chloride Level 110 mmol/L (98-107) Carbon Dioxide Level 27 mmol/L (21-32) Anion Gap 8 (6-14) Blood Urea Nitrogen 44 mg/dL (8-26) Creatinine 1.5 mg/dL (0.7-1.3) Estimated GFR (Cockcroft-Gault) 56.1 Glucose Level 226 mg/dL (70-99) Calcium Level 8.1 mg/dL (8.5-10.1) Test 12/09/19 06:45 12/09/19 08:00 12/09/19 08:40 Heparin Anti-Xa Act, Unfractionated 0.36 IU/mL (0.30-0.70) O2 Saturation 86 % (92-99) Arterial Blood pH 7.37 (7.35-7.45) Arterial Blood pCO2 at Patient Temp 46 mmHg (35-46) Arterial Blood pO2 at Patient Temp 55 mmHg (65-108) Arterial Blood HCO3 26 mmol/L (21-28) Arterial Blood Base Excess 0 mmol/L (-3-3) FiO2 90 Glucose (Fingerstick) 215 mg/dL (70-99) Assessment and Plan Assessmemt and Plan Problems Medical Problems: (1) ARF (acute renal failure) Status: Acute (2) Fever Status: Acute (3) Hypoxemia Status: Acute (4) Sepsis Status: Acute COVID 19 infection/ viral sepsis acute hypoxemic respiratory distress due to the above. Acute renal failure due to vasomotor nephropathy normocytic anemia Diabetes-Type II High Cholesterol Hypertension Severe protein calorie malnutrition Plan Vent weaning ICU monitoring COVID protocol Continue sedation with fentanyl Versed and propofol Heparin drip We hope to discharge to long-term acute care soon if family agrees Prognosis guarded Comment Review of Relevant I have reviewed the following items bren (where applicable) has been applied. Medications: Current Medications Medications (Trade) Dose Ordered Sig/Quinn Route PRN Reason Start Time Stop Time Status Last Admin Dose Admin Non-Formulary Medication 1 ea/ Sodium Chloride 210 ml @ 210 mls/hr 1X ONCE IV 12/08/19 12:00 12/08/19 12:59 DC 12/08/19 13:12 Insulin Human Lispro (HumaLOG) 0-9 UNITS Q6HRS SQ 12/08/19 18:00 12/09/19 05:38 Justifications for Admission Other Justification ANGELICA BUI III DO Dec 09, 2019 11:05
[2019-12-09] MEDS: REMDESIVIR 100mg in NORMAL SALINE 250ML X 4 DAYS IV SCH (11:22)
[2019-12-09] MEDS: MIDAZOLAM 100mg/100ml NS BAG 100 ML IV PRN (11:23)
[2019-12-09] MEDS: PROPOFOL 100 ML IV PRN ×2 (11:26→19:46)
[2019-12-09] MEDS: HEPARIN 25,000UTS/250ML PREMIX 250 ML IV PRN (12:25)
[2019-12-09] MEDS: ANTI-COAG MONITOR BY PHARMACY. MC PRN (12:54)
--- NOTE | 2019-12-09 14:19 | PDOC ---
DOLLY RESENDEZ HORTICULTURE INSTRUCTOR 12/09/19 1419: CARDIO Progress Notes Date and Time Date of Service 12/09/2019 Time of Evaluation 0950 Subjective Subjective: Other (intubated) Vitals Vitals Vital Signs Date Time Temp Pulse Resp B/P (MAP) Pulse Ox O2 Delivery O2 Flow Rate FiO2 12/09/19 13:00 68 24 162/56 (91) 100 Ventilator 12/09/19 12:00 97.5 97.5 Weight Weight [ ] Input and Output Intake and Output Intake and Output 12/09/19 07:00 Intake Total 3259.00 ml Output Total 1415 ml Balance 1844.00 ml IV Total 1424.00 ml Tube Feeding 1435 ml Other 400 ml Output Urine Total 1415 ml Laboratory Labs Laboratory Tests Test 12/08/19 18:14 12/08/19 18:25 12/08/19 20:20 12/08/19 23:48 Glucose (Fingerstick) 159 mg/dL (70-99) 160 mg/dL (70-99) 190 mg/dL (70-99) Heparin Anti-Xa Act, Unfractionated 0.93 IU/mL (0.30-0.70) Test 12/09/19 01:00 12/09/19 05:00 12/09/19 05:10 12/09/19 06:45 Heparin Anti-Xa Act, Unfractionated 0.52 IU/mL (0.30-0.70) 0.36 IU/mL (0.30-0.70) White Blood Count 10.0 x10^3/uL (4.0-11.0) Red Blood Count 3.51 x10^6/uL (4.30-5.70) Hemoglobin 10.9 g/dL (13.0-17.5) Hematocrit 32.7 % (39.0-53.0) Mean Corpuscular Volume 93 fL (79-100) Mean Corpuscular Hemoglobin 31 pg (25-35) Mean Corpuscular Hemoglobin Concent 33 g/dL (31-37) Red Cell Distribution Width 14.3 % (11.5-14.5) Platelet Count 266 x10^3/uL (140-400) Sodium Level 145 mmol/L (136-145) Potassium Level 3.9 mmol/L (3.5-5.1) Chloride Level 110 mmol/L (98-107) Carbon Dioxide Level 27 mmol/L (21-32) Anion Gap 8 (6-14) Blood Urea Nitrogen 44 mg/dL (8-26) Creatinine 1.5 mg/dL (0.7-1.3) Estimated GFR (Cockcroft-Gault) 56.1 Glucose Level 226 mg/dL (70-99) Calcium Level 8.1 mg/dL (8.5-10.1) Glucose (Fingerstick) 204 mg/dL (70-99) Test 12/09/19 08:00 12/09/19 08:40 12/09/19 11:50 O2 Saturation 86 % (92-99) Arterial Blood pH 7.37 (7.35-7.45) Arterial Blood pCO2 at Patient Temp 46 mmHg (35-46) Arterial Blood pO2 at Patient Temp 55 mmHg (65-108) Arterial Blood HCO3 26 mmol/L (21-28) Arterial Blood Base Excess 0 mmol/L (-3-3) FiO2 90 Glucose (Fingerstick) 215 mg/dL (70-99) 199 mg/dL (70-99) Microbiology Micro Microbiology 12/01/19 Urine Culture - Final, Complete Review of Systems Constitutional: yes: no symptom reported Ears/Nose/Throat: Yes: no symptom reported Eyes: Yes: no symptom reported Gastrointestional: Yes: no symptom reported Genitourinary: Yes: no symptom reported Skin: Yes no symptom reported Psychiatric/Neurological: Yes: no symptom reported Endocrine: Yes: no symptom reported Physical Exam Chest: Symmetric LUNGS: Other (mechanical vent) Heart: RRR (SR iwth PACs/PVCs) Abdomen: Other (obese) Extremities: Other (leg edema) Neurology: other (sedated) Assessment Assessment 1. Acute hypoxic resp failure due to COVID 19 PNA, intubated with vent. per pulmonary 2. New onset afib, currently SR 3. Diastolic CHF 4. Asystole: x1 likely vagal induced with OG placement, no further recurrence. 5. HTN: Controlled 6. Morbid obesity with likely HARLEEN Recommendations 1. Hydralazine IV PRN. May use diltiazem for refractory RVR. Currently mainating SR. 2. TTE when rully recovered from covid 3. Lasxi PRN. Secondary prevention measures Justicifation of Admission Dx: Justifications for Admission: Justification of Admission Dx: Yes Sepsis: Hypoxemia KRISTI HERNANDEZ MD 12/09/19 1527: CARDIO Progress Notes Plan Plan The patient was seen and interviewed as well as examined at the bedside. The chart was reviewed. The case was discussed. Agree with the plan of care. DOLLY RESNEDEZ APRN Dec 09, 2019 14:19 KRISTI HERNANDEZ MD Dec 09, 2019 15:27
[2019-12-09] MEDS ORDERED: FUROSEMIDE 40 MG/4 ML VIAL. IVP ONE (14:30)
[2019-12-09] MEDS: ATORVASTATIN CALCIUM 40 MG TABLET. PO SCH (21:25)
[2019-12-10] VITALS (24 sets, daily range): BP systolic 104–172; BP diastolic 47–65
[2019-12-10] MEDS: INSULIN LISPRO 300 UNITS/3 ML VIAL. SQ SCH ×4 (00:14→16:58)
[2019-12-10] MEDS: PIPERACILLIN/TAZOBACTAM 3.375 GM in IV NORMAL SALINE 50ML 50 ML IV SCH ×3 (00:15→12:07)
[2019-12-10] MEDS: PROPOFOL 100 ML IV PRN ×6 (00:45→17:58)
[2019-12-10] MEDS: MIDAZOLAM 100mg/100ml NS BAG 100 ML IV PRN ×2 (03:20→19:12)
[2019-12-10] MEDS: fentaNYL HIGH DOSE PCA 55 ML IV PRN ×2 (03:21→17:46)
[2019-12-10] MEDS: methylPREDNISolone SOD SUCC PF 40 MG/ML VIAL. IV SCH ×3 (05:58→21:41)
--- NOTE | 2019-12-10 06:30 | NUR ---
Blood pressure unable to be controlled with PRN hydralazine, so Cardene restarted. Several times overnight, pt breathing quickened to 32-34 and pt out of sync with vent. O2 sats dropped to 81%. PEEP increased to 10 and FiO2 increased to 100% per RT. Sedation increased. Pt now in sync with vent and O2 sat 97%
[2019-12-10 06:34] LABS: ALBUMIN 1.4 g/dL (3.4-5.0); ALBUMIN/GLOBULIN RATIO 0.3 (1.0-1.7); CALCIUM 7.8 mg/dL (8.5-10.1); CREATININE 1.9 mg/dL (0.7-1.3); GFR 42.7; TOTAL BILIRUBIN 0.3 mg/dL (0.2-1.0); TOTAL PROTEIN 5.5 g/dL (6.4-8.2)
--- NOTE | 2019-12-10 08:35 | RAD ---
EXAM: PORTABLE CHEST 1V INDICATION: Reason: Intubation / Spl. Instructions: / History: . TECHNIQUE: Single view COMPARISON: 12/09/2019 chest x-ray FINDINGS: Patient remains intubated with the ET tube terminating approximately 6 cm above the monet. Enteric tube remains present passing below the diaphragms. Right jugular approach central venous catheter remains present taking a somewhat lateral course, possibly the external jugular vein. It terminates at the thoracic inlet behind the medial right clavicle, as before. The heart size is normal. The great vessels appear unremarkable. There is no hilar or mediastinal mass. Lungs show patchy bilateral airspace opacities, left greater than right that are similar to the previous day with no significant change. There is no pleural effusion or pneumothorax. There are no significant osseous abnormalities. IMPRESSION: Stable lines and tubes with no significant change in bilateral patchy airspace opacities. Electronically signed by: Trevor Castaneda MD (12/10/2019 8:32 AM) [id number]
--- NOTE | 2019-12-10 09:00 | PDOC ---
DATE OF SERVICE DATE: 12/10/19 TIME: 08:58 SUBJECTIVE ROS Remains Intubated OBJECTIVE Vital Signs Vital Signs Date Time Temp Pulse Resp B/P (MAP) Pulse Ox O2 Delivery O2 Flow Rate FiO2 12/10/19 08:33 96 Ventilator 12/10/19 06:00 72 24 134/54 (80) 12/10/19 00:00 97.5 97.5 I & 0 Intake and Output 12/10/19 06:59 Intake Total 5411.6 ml Output Total 2405 ml Balance 3006.6 ml IV Total 1625.6 ml Tube Feeding 2186 ml Other 1600 ml Output Urine Total 2405 ml PHYSICAL EXAM Physical Exam Visual Exam (During Global CoViD 19 pandemic) GEN.: Intubated, On MV HEENT: Head is normocephalic LUNGS: No use of accessory muscles HEART: RRR, ABDOMEN: obese, EXTREMITIES: Trace Bilat LE edema + NEUROLOGIC: sedated SKIN: No rash Prignle + DIAGNOSIS/ASSESSMENT Assessment & Plan CHAYITO - ATN , peaked at 4.1 --> 1.5, Cr up to 1.9 today Recd Lasix IV Supportive care, Strict I/O, Avoid Nephrotoxins CKD stage 3- Cr in [facility] records 1.3 in 2017 No Interval labs HyperNatremia - free water flushes Acute hypoxic respiratory failure secondary to COVID-19 pneumonia/acute lung injury/early acute respiratory distress syndrome. Abnormal chest x-ray with bilateral interstitial infiltrates.Intubated , On MV Abnormal D-dimer, likely related to COVID pneumonia. Diabetes-Type II Hypertension Severe protein calorie malnutrition COMMENT/RELEVANT DATA Meds Current Medications Medications (Trade) Dose Ordered Sig/Quinn Start Time Stop Time Status Last Admin Dose Admin Acetaminophen (Tylenol) 650 mg PRN Q6HRS PRN 11/28/19 17:45 11/30/19 08:45 650 MG Acetaminophen/ Hydrocodone Bitart (Lortab 5/325) 1 tab PRN Q6HRS PRN 11/28/19 17:45 UNV Amlodipine Besylate (Norvasc) 10 mg DAILY 12/04/19 09:00 12/06/19 18:39 DC 12/06/19 07:58 10 MG Ascorbic Acid (Vitamin C) 500 mg BID 12/04/19 21:00 12/09/19 21:25 500 MG Aspirin (Aspirin Chewable) 81 mg DAILY 11/29/19 09:00 12/09/19 08:34 81 MG Atorvastatin Calcium (Lipitor) 40 mg QHS 11/28/19 21:00 12/09/19 21:25 40 MG Atropine Sulfate (ATROPINE 0.5mg SYRINGE) 0.5 mg PRN Q5MIN PRN 12/07/19 07:30 Atropine Sulfate (ATROPINE 1mg SYRINGE) 1 mg STK-MED ONCE 12/08/19 09:30 12/09/19 09:05 DC Cyclobenzaprine HCl (Flexeril) 10 mg PRN TID PRN 12/02/19 06:45 12/06/19 20:16 10 MG Dexmedetomidine HCl 400 mcg/ Sodium Chloride 100 ml @ 7.23 mls/hr CONT PRN 12/07/19 07:30 12/07/19 12:52 7.23 MLS/HR Dextrose (Dextrose 50%-Water Syringe) 12.5 gm PRN Q15MIN PRN 12/01/19 12:15 Diltiazem HCl (Cardizem Iv Push) 10 mg 1X ONCE 12/07/19 09:00 12/07/19 09:01 DC 12/07/19 09:13 10 MG Diltiazem HCl 125 mg/Sodium Chloride 125 ml @ 5 mls/hr CONT PRN 12/07/19 09:00 12/07/19 09:33 5 MLS/HR Enoxaparin Sodium (Lovenox 40mg Syringe) 40 mg Q12HR 11/29/19 09:00 11/30/19 10:00 DC 11/29/19 20:52 40 MG Enoxaparin Sodium (Lovenox 80mg Syringe) 80 mg 1X ONCE 11/28/19 19:00 11/28/19 19:01 DC 11/28/19 19:10 80 MG Ephedrine Sulfate (ePHEDrine PF IN SALINE SYRINGE) 50 mg STK-MED ONCE 12/07/19 12:00 12/09/19 08:49 DC Epinephrine HCl (EPINEPHrine SYRINGE) 2 mg STK-MED ONCE 12/08/19 09:30 12/09/19 09:05 DC Etomidate (Amidate) 20 mg STK-MED ONCE 12/07/19 12:00 12/09/19 08:48 DC Famotidine (Pepcid Vial) 20 mg DAILY 12/04/19 09:00 12/09/19 08:35 20 MG Fentanyl Citrate 55 ml @ 0 mls/hr CONT PRN PRN 12/07/19 21:30 12/10/19 03:21 2 MLS/HR Fentanyl Citrate (Fentanyl 2ml Vial) 50 mcg PRN Q1HR PRN 12/07/19 19:45 Furosemide (Lasix) 40 mg 1X ONCE 12/09/19 14:30 12/09/19 14:31 DC 12/09/19 14:30 40 MG Glipizide (Glucotrol) 2.5 mg DAILY 11/29/19 09:00 12/01/19 08:12 DC 11/30/19 08:44 2.5 MG Haloperidol Lactate (Haldol Inj) 2.5 mg PRN Q6HRS PRN 12/06/19 10:45 12/07/19 03:19 2.5 MG Heparin Sodium (Porcine) (Heparin Sodium) 2,150 unit PRN Q6HRS PRN 12/07/19 10:45 Heparin Sodium/ Dextrose 250 ml @ 20 mls/hr CONT PRN 12/07/19 10:45 12/09/19 12:25 20 MLS/HR Hydralazine HCl (Apresoline Inj) 20 mg PRN Q4HRS PRN 12/06/19 15:30 12/09/19 22:33 20 MG Hydrochlorothiazide (Hydrodiuril) 25 mg DAILY 11/29/19 09:00 12/01/19 12:52 DC 12/01/19 08:17 25 MG Info (Anti-Coagulation Monitoring By Pharmacy) 1 each PRN DAILY PRN 12/09/19 13:00 12/09/19 12:54 1 EACH Info (Icu Electrolyte Protocol) 1 ea DAILY 11/29/19 09:00 11/28/19 18:16 DC Insulin Glargine (Lantus Syringe) 30 unit BID 12/01/19 21:00 12/09/19 21:26 30 UNIT Insulin Human Lispro (HumaLOG) 0-9 UNITS Q6HRS 12/08/19 18:00 12/10/19 05:59 5 UNITS Lactobacillus Rhamnosus (Culturelle) 1 cap BID 12/02/19 21:00 12/09/19 21:25 1 CAP Lactulose (Lactulose) 20 gm PRN Q12HR PRN 11/28/19 17:45 Lisinopril (Prinivil) 40 mg DAILY 11/29/19 09:00 12/01/19 12:52 DC 12/01/19 08:19 40 MG Lorazepam (Ativan Inj) 0.5 mg PRN Q6HRS PRN 11/28/19 17:45 12/06/19 22:50 0.5 MG Magnesium Sulfate 50 ml @ 25 mls/hr 1X ONCE 12/07/19 09:45 12/07/19 11:44 DC 12/07/19 11:05 25 MLS/HR Methylprednisolone Sodium Succinate (SOLU-Medrol 40MG VIAL) 40 mg Q8HRS 12/03/19 14:00 12/10/19 05:58 40 MG Methylprednisolone Sodium Succinate (SOLU-Medrol 125MG VIAL) 60 mg Q8HRS 11/30/19 09:00 12/03/19 10:50 DC 12/03/19 05:38 60 MG Metoprolol Tartrate (Lopressor) 25 mg PRN BID PRN 12/05/19 22:30 Cancel Midazolam HCl 100 ml @ 0 mls/hr CONT PRN 12/07/19 19:45 12/10/19 03:20 7 MLS/HR Morphine Sulfate (Morphine Sulfate) 1 mg PRN Q1HR PRN 11/28/19 17:45 12/10/19 01:00 DC Nicardipine HCl 50 mg/Sodium Chloride 250 ml @ 25 mls/hr CONT PRN 12/06/19 18:45 12/09/19 23:05 25 MLS/HR Non-Formulary Medication 1 ea/ Sodium Chloride 230 ml @ 460 mls/hr Q24H 12/09/19 12:00 12/12/19 12:29 12/09/19 11:22 460 MLS/HR Ondansetron HCl (Zofran) 4 mg PRN Q6HRS PRN 11/28/19 17:45 Phenylephrine HCl (PHENYLEPHRINE in 0.9% NACL PF) 1 mg STK-MED ONCE 12/07/19 12:00 12/09/19 08:49 DC Piperacillin Sod/ Tazobactam Sod (Zosyn Per Pharmacy) 1 each PRN DAILY PRN 11/30/19 08:45 Piperacillin Sod/ Tazobactam Sod 3.375 gm/Sodium Chloride 50 ml @ 100 mls/hr Q6HRS 11/30/19 12:00 12/10/19 05:58 100 MLS/HR Potassium Chloride (Klor-Con) 40 meq 1X ONCE 11/29/19 16:45 11/29/19 16:46 DC 11/29/19 17:15 40 MEQ Propofol (Diprivan) 200 mg STK-MED ONCE 12/07/19 12:00 12/09/19 08:49 DC Senna/Docusate Sodium (Senna Plus) 1 tab BID 11/28/19 21:00 12/09/19 21:25 1 TAB Sodium Chloride 500 ml @ 500 mls/hr 1X PRN PRN 12/07/19 07:30 Sodium Chloride (Normal Saline Flush) 3 ml QSHIFT PRN 11/28/19 17:45 Sterile Water (WATER for RESP) 1,000 ml CONT PRN 11/30/19 17:30 12/07/19 15:37 1,000 ML Succinylcholine Chloride (Anectine) 200 mg STK-MED ONCE 12/07/19 12:00 12/09/19 08:49 DC Tamsulosin HCl (Flomax) 0.4 mg DAILY 11/29/19 09:00 12/09/19 08:34 0.4 MG Thiamine Mononitrate (Vitamin B-1) 100 mg BID 12/04/19 21:00 12/09/19 21:25 100 MG Thiamine HCl 200 mg/Dextrose 52 ml @ 102 mls/hr Q12HR 11/28/19 19:30 12/04/19 14:59 DC 12/04/19 09:23 102 MLS/HR Vitamin D (Vitamin D3) 1,000 unit BID 11/28/19 21:00 12/09/19 21:25 1,000 UNIT Zinc Sulfate (Orazinc) 220 mg DAILY 11/29/19 09:00 12/09/19 08:34 220 MG Lab Laboratory Tests Test 12/09/19 11:50 12/09/19 17:17 12/10/19 00:03 12/10/19 05:45 Glucose (Fingerstick) 199 mg/dL (70-99) 184 mg/dL (70-99) 228 mg/dL (70-99) Heparin Anti-Xa Act, Unfractionated 0.11 IU/mL (0.30-0.70) Sodium Level 146 mmol/L (136-145) Potassium Level 4.0 mmol/L (3.5-5.1) Chloride Level 110 mmol/L (98-107) Carbon Dioxide Level 30 mmol/L (21-32) Anion Gap 6 (6-14) Blood Urea Nitrogen 52 mg/dL (8-26) Creatinine 1.9 mg/dL (0.7-1.3) Estimated GFR (Cockcroft-Gault) 42.7 BUN/Creatinine Ratio 27 (6-20) Glucose Level 231 mg/dL (70-99) Calcium Level 7.8 mg/dL (8.5-10.1) Total Bilirubin 0.3 mg/dL (0.2-1.0) Aspartate Amino Transf (AST/SGOT) 31 U/L (15-37) Alanine Aminotransferase (ALT/SGPT) 64 U/L (16-63) Alkaline Phosphatase 190 U/L (46-116) Total Protein 5.5 g/dL (6.4-8.2) Albumin 1.4 g/dL (3.4-5.0) Albumin/Globulin Ratio 0.3 (1.0-1.7) Test 12/10/19 05:48 Glucose (Fingerstick) 233 mg/dL (70-99) Results All relevant outside records, renal labs, imaging studies, telemetry/EKG's were reviewed. Justicifation of Admission Dx: Justifications for Admission: Justification of Admission Dx: Yes Sepsis: Hypoxemia YUDY MARTINEZ MD Dec 10, 2019 09:00
[2019-12-10] MEDS: REMDESIVIR 100mg in NORMAL SALINE 250ML X 4 DAYS IV SCH (09:16)
[2019-12-10 09:21] LABS: BASE EXCESS ABG 1 mmol/L (-3-3); HCO3 ABG 26 mmol/L (21-28); PCO2 ABG 44 mmHg (35-46); PO2 ABG 93 mmHg (65-108); SAT O2 ABG 97 % (92-99)
[2019-12-10 09:23] LABS: FIO2 ABG 100
[2019-12-10] MEDS: THIAMINE 100 MG TABLET. PO SCH ×2 (09:43→21:13)
[2019-12-10] MEDS: ASPIRIN CHEWABLE 81 MG TABLET. PO SCH (09:43)
[2019-12-10] MEDS: ASCORBIC ACID 500 MG TABLET PO SCH ×2 (09:43→21:13)
[2019-12-10] MEDS: ZINC SULFATE 220 MG CAPSULE. PO SCH (09:43)
[2019-12-10] MEDS: FAMOTIDINE 20 MG/2 ML VIAL IVP SCH (09:43)
[2019-12-10] MEDS: LACTOBACILLUS RHAMNOSUS GG 1 CAPSULE. PO SCH ×2 (09:43→21:13)
[2019-12-10] MEDS: TAMSULOSIN 0.4 MG CAP.ER.24H. PO SCH (09:43)
[2019-12-10] MEDS: SENNOSIDES/DOCUSATE 8.6/50MG TABLET. PO SCH ×2 (09:44→21:14)
[2019-12-10] MEDS: CHOLECALCIFEROL (VITAMIN D3) 1,000 UNIT TABLET PO SCH ×2 (09:44→21:14)
[2019-12-10] MEDS: INSULIN GLARGINE SYRINGE. SQ SCH ×2 (09:44→21:14)
[2019-12-10] MEDS: ANTI-COAG MONITOR BY PHARMACY. MC PRN (10:14)
--- NOTE | 2019-12-10 11:05 | PDOC ---
[employer] PROGRESS NOTE Date of Service DOS: DATE: 12/10/19 TIME: 11:03 Chief Complaint Chief Complaint COVID 19 infection/ viral sepsis acute hypoxemic respiratory distress due to the above. Acute renal failure due to vasomotor nephropathy normocytic anemia Diabetes-Type II High Cholesterol Hypertension Severe protein calorie malnutrition History of Present Illness History of Present Illness 12-10-2019 Patient seen and examined in the [place] [id number] ICU He is still intubated He is back on 100% FiO2 AC/30/09 100/100% with 10 of PEEP I discussed the case with the case management manager I spoke with his son Jayden yesterday by phone for quite some time Chart reviewed 12-09-2019 Patient seen and examined in the [place] [id number] ICU He remains intubated Assist-control/30/09 100/90% with 7 of PEEP He is sedated with Versed propofol He is also on a heparin drip Also has fentanyl IV Discussed with case management Discussed with RN Chart reviewed I tried to call the family but no answer I left a voicemail Plan is to [facility] possible Mr Olvera is a 69yo M w/ PMHx Diabetes-Type II, High Cholesterol, Hypertension who was in his usual state of health until 2 days prior ot his admission when he was evaluated at [facility] and found to be positive for COVID 19 virus, patient was discharged and given instructions to follow up in the nearest medical center would his symptoms worsen, Today he felt worse and more dyspneic reason why he came to the ER, he initially requiring 1 liter of oxygen 11/28: Febrile 101 3 F overnight. Procalcitonin elevated, INR 1.4, WBC 9.1, Hb 11.9, platelets 189, NA 137, K3.4, BUN 39, CR 2.8, glucose 240. He is short of breath with cough. He is insistent he does not wish for convalescent FFP if his O2 needs continues to increase. Now on 4L NCO2. 11/29: Febrile to 101.5 F overnight. Creatinine increased to 4.1, he still very short of breath worsening cough, increased from 6 L nasal cannula overnight to 15 L nonrebreather facemask. I discussed with pulmonology to transferred out of the ICU. I have asked the patient to reconsider convalesce and FFP and will discuss with his family. 11/30: No acute events reported overnight, case discussed with nursing staff patient in no acute distress no complaints during my visit seems to be tolerating Vapotherm well hopefully he will be able to continue with improving, encourage proning position if tolerated 12/01: No acute events reported overnight, case discussed with nursing staff patient in no acute distress no complaints during my visit, given update patient's over the phone reassurance has been provided no new complaints seems to be status quo. Encourage more activity as tolerated in prone positioning 12/02: Discussed with nursing staff, no acute events overnight. Breathing well on Vapotherm. Continue ICU monitoring. 12/03: Patient with O2 desaturation overnight. Breathing more comfortably upright position. Currently breathing on 40 L of high flow nasal cannula with 100% O2 saturation 12/07 : PLACED ON VENT OVER NIGHT, inc resp distress Vitals/I&O Vitals/I&O: Vital Signs Date Time Temp Pulse Resp B/P (MAP) Pulse Ox O2 Delivery O2 Flow Rate FiO2 12/10/19 08:33 96 Ventilator 12/10/19 08:00 62 24 115/48 (70) 12/10/19 07:00 97.5 97.5 I & O 12/09/19 12/09/19 12/10/19 15:00 23:00 07:00 Intake Total 680 ml 1772.5 ml 2959.1 ml Output Total 610 ml 1035 ml 760 ml Balance 70 ml 737.5 ml 2199.1 ml Physical Exam Physical Exam: sedated on vent General: Cooperative Heart: Regular rate, Normal S1, Normal S2 Abdomen: Normal bowel sounds, Soft Extremities: No clubbing, No cyanosis Skin: No rashes, No breakdown Labs Labs: Laboratory Tests Test 12/09/19 11:50 12/09/19 17:17 12/10/19 00:03 12/10/19 05:45 Glucose (Fingerstick) 199 mg/dL (70-99) 184 mg/dL (70-99) 228 mg/dL (70-99) Heparin Anti-Xa Act, Unfractionated 0.11 IU/mL (0.30-0.70) Sodium Level 146 mmol/L (136-145) Potassium Level 4.0 mmol/L (3.5-5.1) Chloride Level 110 mmol/L (98-107) Carbon Dioxide Level 30 mmol/L (21-32) Anion Gap 6 (6-14) Blood Urea Nitrogen 52 mg/dL (8-26) Creatinine 1.9 mg/dL (0.7-1.3) Estimated GFR (Cockcroft-Gault) 42.7 BUN/Creatinine Ratio 27 (6-20) Glucose Level 231 mg/dL (70-99) Calcium Level 7.8 mg/dL (8.5-10.1) Total Bilirubin 0.3 mg/dL (0.2-1.0) Aspartate Amino Transf (AST/SGOT) 31 U/L (15-37) Alanine Aminotransferase (ALT/SGPT) 64 U/L (16-63) Alkaline Phosphatase 190 U/L (46-116) Total Protein 5.5 g/dL (6.4-8.2) Albumin 1.4 g/dL (3.4-5.0) Albumin/Globulin Ratio 0.3 (1.0-1.7) Test 12/10/19 05:48 12/10/19 09:15 Glucose (Fingerstick) 233 mg/dL (70-99) O2 Saturation 97 % (92-99) Arterial Blood pH 7.39 (7.35-7.45) Arterial Blood pCO2 at Patient Temp 44 mmHg (35-46) Arterial Blood pO2 at Patient Temp 93 mmHg (65-108) Arterial Blood HCO3 26 mmol/L (21-28) Arterial Blood Base Excess 1 mmol/L (-3-3) FiO2 100 Assessment and Plan Assessmemt and Plan Problems Medical Problems: (1) ARF (acute renal failure) Status: Acute (2) Fever Status: Acute (3) Hypoxemia Status: Acute (4) Sepsis Status: Acute COVID 19 infection/ viral sepsis acute hypoxemic respiratory distress due to the above. Acute renal failure due to vasomotor nephropathy normocytic anemia Diabetes-Type II High Cholesterol Hypertension Severe protein calorie malnutrition Plan COVID 19 protocol ICU monitoring Vent weaning Home meds DVT prophylaxis Continue her heparin drip He is also sedated with fentanyl and propofol His prognosis is extremely guarded as he is on 100% FiO2 He is critically ill 32 minutes cc time Comment Review of Relevant I have reviewed the following items bren (where applicable) has been applied. Medications: Current Medications Medications (Trade) Dose Ordered Sig/Quinn Route PRN Reason Start Time Stop Time Status Last Admin Dose Admin Non-Formulary Medication 1 ea/ Sodium Chloride 230 ml @ 460 mls/hr Q24H IV 12/09/19 12:00 12/12/19 12:29 12/10/19 09:16 Info (Anti-Coagulation Monitoring By Pharmacy) 1 each PRN DAILY PRN MC SEE COMMENTS 12/09/19 13:00 12/10/19 10:14 Furosemide (Lasix) 40 mg 1X ONCE IVP 12/09/19 14:30 12/09/19 14:31 DC 12/09/19 14:30 Justifications for Admission Other Justification ANGELICA BUI III DO Dec 10, 2019 11:05
--- NOTE | 2019-12-10 11:15 | PDOC ---
PULMONARY PROGRESS NOTES DATE: 12/10/19 TIME: 11:13 Subjective Patient became increasingly more short of air, decreased sats, did not tolerate BiPAP intubated 12/07 remains on AC mode, high flow FIO2 Vitals Vital Signs Date Time Temp Pulse Resp B/P (MAP) Pulse Ox O2 Delivery O2 Flow Rate FiO2 12/10/19 08:33 96 Ventilator 12/10/19 08:00 62 24 115/48 (70) 12/10/19 07:00 97.5 97.5 Comments visual exam done Now on assist control ventilation appears to be in sync some edema noted to the lower extremities General: No acute distress Labs Laboratory Tests Test 12/08/19 12:34 12/08/19 18:14 12/08/19 18:25 12/08/19 20:20 Glucose (Fingerstick) 138 mg/dL (70-99) 159 mg/dL (70-99) 160 mg/dL (70-99) Heparin Anti-Xa Act, Unfractionated 0.93 IU/mL (0.30-0.70) Test 12/08/19 23:48 12/09/19 01:00 12/09/19 05:00 12/09/19 05:10 Glucose (Fingerstick) 190 mg/dL (70-99) 204 mg/dL (70-99) Heparin Anti-Xa Act, Unfractionated 0.52 IU/mL (0.30-0.70) White Blood Count 10.0 x10^3/uL (4.0-11.0) Red Blood Count 3.51 x10^6/uL (4.30-5.70) Hemoglobin 10.9 g/dL (13.0-17.5) Hematocrit 32.7 % (39.0-53.0) Mean Corpuscular Volume 93 fL (79-100) Mean Corpuscular Hemoglobin 31 pg (25-35) Mean Corpuscular Hemoglobin Concent 33 g/dL (31-37) Red Cell Distribution Width 14.3 % (11.5-14.5) Platelet Count 266 x10^3/uL (140-400) Sodium Level 145 mmol/L (136-145) Potassium Level 3.9 mmol/L (3.5-5.1) Chloride Level 110 mmol/L (98-107) Carbon Dioxide Level 27 mmol/L (21-32) Anion Gap 8 (6-14) Blood Urea Nitrogen 44 mg/dL (8-26) Creatinine 1.5 mg/dL (0.7-1.3) Estimated GFR (Cockcroft-Gault) 56.1 Glucose Level 226 mg/dL (70-99) Calcium Level 8.1 mg/dL (8.5-10.1) Test 12/09/19 06:45 12/09/19 08:00 12/09/19 08:40 12/09/19 11:50 Heparin Anti-Xa Act, Unfractionated 0.36 IU/mL (0.30-0.70) O2 Saturation 86 % (92-99) Arterial Blood pH 7.37 (7.35-7.45) Arterial Blood pCO2 at Patient Temp 46 mmHg (35-46) Arterial Blood pO2 at Patient Temp 55 mmHg (65-108) Arterial Blood HCO3 26 mmol/L (21-28) Arterial Blood Base Excess 0 mmol/L (-3-3) FiO2 90 Glucose (Fingerstick) 215 mg/dL (70-99) 199 mg/dL (70-99) Test 12/09/19 17:17 12/10/19 00:03 12/10/19 05:45 12/10/19 05:48 Glucose (Fingerstick) 184 mg/dL (70-99) 228 mg/dL (70-99) 233 mg/dL (70-99) Heparin Anti-Xa Act, Unfractionated 0.11 IU/mL (0.30-0.70) Sodium Level 146 mmol/L (136-145) Potassium Level 4.0 mmol/L (3.5-5.1) Chloride Level 110 mmol/L (98-107) Carbon Dioxide Level 30 mmol/L (21-32) Anion Gap 6 (6-14) Blood Urea Nitrogen 52 mg/dL (8-26) Creatinine 1.9 mg/dL (0.7-1.3) Estimated GFR (Cockcroft-Gault) 42.7 BUN/Creatinine Ratio 27 (6-20) Glucose Level 231 mg/dL (70-99) Calcium Level 7.8 mg/dL (8.5-10.1) Total Bilirubin 0.3 mg/dL (0.2-1.0) Aspartate Amino Transf (AST/SGOT) 31 U/L (15-37) Alanine Aminotransferase (ALT/SGPT) 64 U/L (16-63) Alkaline Phosphatase 190 U/L (46-116) Total Protein 5.5 g/dL (6.4-8.2) Albumin 1.4 g/dL (3.4-5.0) Albumin/Globulin Ratio 0.3 (1.0-1.7) Test 12/10/19 09:15 O2 Saturation 97 % (92-99) Arterial Blood pH 7.39 (7.35-7.45) Arterial Blood pCO2 at Patient Temp 44 mmHg (35-46) Arterial Blood pO2 at Patient Temp 93 mmHg (65-108) Arterial Blood HCO3 26 mmol/L (21-28) Arterial Blood Base Excess 1 mmol/L (-3-3) FiO2 100 Laboratory Tests Test 12/09/19 11:50 12/09/19 17:17 12/10/19 00:03 12/10/19 05:45 Glucose (Fingerstick) 199 mg/dL (70-99) 184 mg/dL (70-99) 228 mg/dL (70-99) Heparin Anti-Xa Act, Unfractionated 0.11 IU/mL (0.30-0.70) Sodium Level 146 mmol/L (136-145) Potassium Level 4.0 mmol/L (3.5-5.1) Chloride Level 110 mmol/L (98-107) Carbon Dioxide Level 30 mmol/L (21-32) Anion Gap 6 (6-14) Blood Urea Nitrogen 52 mg/dL (8-26) Creatinine 1.9 mg/dL (0.7-1.3) Estimated GFR (Cockcroft-Gault) 42.7 BUN/Creatinine Ratio 27 (6-20) Glucose Level 231 mg/dL (70-99) Calcium Level 7.8 mg/dL (8.5-10.1) Total Bilirubin 0.3 mg/dL (0.2-1.0) Aspartate Amino Transf (AST/SGOT) 31 U/L (15-37) Alanine Aminotransferase (ALT/SGPT) 64 U/L (16-63) Alkaline Phosphatase 190 U/L (46-116) Total Protein 5.5 g/dL (6.4-8.2) Albumin 1.4 g/dL (3.4-5.0) Albumin/Globulin Ratio 0.3 (1.0-1.7) Test 12/10/19 05:48 12/10/19 09:15 Glucose (Fingerstick) 233 mg/dL (70-99) O2 Saturation 97 % (92-99) Arterial Blood pH 7.39 (7.35-7.45) Arterial Blood pCO2 at Patient Temp 44 mmHg (35-46) Arterial Blood pO2 at Patient Temp 93 mmHg (65-108) Arterial Blood HCO3 26 mmol/L (21-28) Arterial Blood Base Excess 1 mmol/L (-3-3) FiO2 100 Medications Active Scripts Medications Dose Route/Sig Max Daily Dose Days Date Category [place] 5-325 Tablet (Acetaminophen/Hydrocodone Bitart) 1 Each Tablet 1 Tab PO PRN Q6HRS PRN 03/20/18 Rx Orphenadrine Citrate 100 Mg Tablet.er 1 Tab PO BID 03/20/18 Rx Amlodipine Besylate 5 Mg Tablet 5 Mg PO DAILY 02/20/17 Rx Lisinopril 40 Mg Tablet 40 Mg PO DAILY 02/18/17 Reported Glipizide 5 Mg Tablet 2.5 Mg PO DAILY 02/18/17 Reported Hydrochlorothiazide Tablet (Hydrochlorothiazide) 12.5 Mg Tablet 25 Mg PO DAILY 02/18/17 Reported Furosemide 20 Mg Tablet 20 Mg PO DAILY 02/18/17 Reported Tamsulosin Hcl 0.4 Mg Cap.er.24h 1 Cap PO DAILY 02/18/17 Reported Aspirin 81 Mg Tab.chew 81 Mg PO DAILY 02/18/17 Reported Metformin Hcl 500 Mg Tablet 500 Mg PO DAILY 02/18/17 Reported Comments CXR Impression: Bilateral perihilar infiltrates. CXR 12/05/19 Impression: Slight interval increase in the bilateral perihilar infiltrates. Impression . 1. Acute hypoxic respiratory failure secondary to COVID-19 pneumonia/acute lung injury/early acute respiratory distress syndrome. 2. Abnormal chest x-ray with bilateral interstitial infiltrates, suggestive of COVID-19 pneumonia.-- 3. No significant tobacco history. 4. Acute kidney injury on top of CKD with baseline cr of 1.3--- stable 5. Severe protein-calorie malnutrition. 6. Abnormal D-dimer, likely related to COVID pneumonia. 7. New onset A. fib with rapid ventricular response Chest x-ray IMPRESSION: 1. Bilateral perihilar and basilar opacities, slightly improved in the lung bases. 2. Improved or redistributed small bilateral pleural effusions. 3. Stable endotracheal tube. Plan . Intubated 12/07 for increasing shortness of air and decrease saturation remains on AC mode make changes based on FIO2. on 90%FIO2/10 PEEP Initiated Remdesivir 12/07 Follow cardiology input for new onset A. fib Lasix as needed Continue steroids with taper for COVID-19 pneumonia, will need total of 10 days empiric antibiotics Follow renal recommendations, cr improving slowly S/P plasma D-dimers elevated secondary to, patient on full dose hep (for A-fib) Pt accepted at [facility] but not stable for transfer DVT/GI PPX - D/W RN and RT TOTAL CRITICAL CARE TIME: 30 minutes. ABBY MOORE MD Dec 10, 2019 11:15
--- NOTE | 2019-12-10 13:48 | NUR ---
SS following up with discharge planning. SS reviewed pt chart and discussed with pt RN. Pt remains on the vent at this time. Pt on IV Zosyn. COVID19 positive. Pt accepted at [facility]. SS phoned and faxed clinical updates to [facility], ; fax [phone]. Per RN, pt not stable for discharge today. SS will continue to follow for discharge planning.
[2019-12-10] MEDS: HEPARIN 25,000UTS/250ML PREMIX 250 ML IV PRN (19:13)
[2019-12-10] MEDS: ATORVASTATIN CALCIUM 40 MG TABLET. PO SCH (21:13)
[2019-12-11] VITALS (24 sets, daily range): BP systolic 74–176; BP diastolic 38–67
[2019-12-11] MEDS: PROPOFOL 100 ML IV PRN (00:13)
[2019-12-11] MEDS: INSULIN LISPRO 300 UNITS/3 ML VIAL. SQ SCH ×4 (00:13→16:56)
[2019-12-11 05:43] LABS: HEMATOCRIT 30.6 % (39.0-53.0); HEMOGLOBIN 9.8 g/dL (13.0-17.5); RED BLOOD COUNT 3.27 x10^6/uL (4.30-5.70); RED CELL DISTRIBUTION WIDTH 14.7 % (11.5-14.5)
[2019-12-11 05:49] LABS: CALCIUM 7.7 mg/dL (8.5-10.1); CREATININE 1.8 mg/dL (0.7-1.3); GFR 45.5; POTASSIUM 4.2 mmol/L (3.5-5.1)
[2019-12-11] MEDS: methylPREDNISolone SOD SUCC PF 40 MG/ML VIAL. IV SCH ×3 (06:00→21:32)
[2019-12-11] MEDS: MIDAZOLAM 100mg/100ml NS BAG 100 ML IV PRN ×2 (06:12→15:39)
[2019-12-11] MEDS: fentaNYL HIGH DOSE PCA 55 ML IV PRN ×2 (07:27→21:11)
[2019-12-11 07:52] LABS: BASE EXCESS ABG 0 mmol/L (-3-3); HCO3 ABG 26 mmol/L (21-28); PCO2 ABG 49 mmHg (35-46); PO2 ABG 73 mmHg (65-108); SAT O2 ABG 93 % (92-99)
[2019-12-11 08:34] LABS: FIO2 ABG 100% VENT
[2019-12-11] MEDS: THIAMINE 100 MG TABLET. PO SCH ×2 (08:35→21:16)
[2019-12-11] MEDS: ASPIRIN CHEWABLE 81 MG TABLET. PO SCH (08:35)
[2019-12-11] MEDS: TAMSULOSIN 0.4 MG CAP.ER.24H. PO SCH (08:35)
[2019-12-11] MEDS: ASCORBIC ACID 500 MG TABLET PO SCH ×2 (08:35→21:16)
[2019-12-11] MEDS: CHOLECALCIFEROL (VITAMIN D3) 1,000 UNIT TABLET PO SCH ×2 (08:35→21:16)
[2019-12-11] MEDS: FAMOTIDINE 20 MG/2 ML VIAL IVP SCH (08:35)
[2019-12-11] MEDS: LACTOBACILLUS RHAMNOSUS GG 1 CAPSULE. PO SCH ×2 (08:35→21:16)
[2019-12-11] MEDS: ZINC SULFATE 220 MG CAPSULE. PO SCH (08:35)
[2019-12-11] MEDS: SENNOSIDES/DOCUSATE 8.6/50MG TABLET. PO SCH ×2 (08:35→21:16)
--- NOTE | 2019-12-11 08:57 | PDOC ---
DATE OF SERVICE DATE: 12/11/19 TIME: 08:57 SUBJECTIVE ROS Remains Intubated, became Hypothermic last night, currently on heating blanket Also became Hypotensive OBJECTIVE Vital Signs Vital Signs Date Time Temp Pulse Resp B/P (MAP) Pulse Ox O2 Delivery O2 Flow Rate FiO2 12/11/19 07:35 98 Ventilator 12/11/19 06:00 97.5 71 24 105/61 (76) 97.5 I & 0 Intake and Output 12/11/19 07:00 Intake Total 4975.64 ml Output Total 1620 ml Balance 3355.64 ml IV Total 1316.64 ml Tube Feeding 2659 ml Other 1000 ml Output Urine Total 1620 ml PHYSICAL EXAM Physical Exam Visual Exam (During Global CoViD 19 pandemic) GEN.: Intubated, On MV HEENT: Head is normocephalic LUNGS: No use of accessory muscles HEART: RRR, ABDOMEN: obese, EXTREMITIES: Trace Bilat LE edema + NEUROLOGIC: sedated SKIN: No rash Pringle + DIAGNOSIS/ASSESSMENT Assessment & Plan CHAYITO - ATN , peaked at 4.1 --> 1.5, went up some 1.9 Recd Lasix IV , Stable Renal function, Non oliguric Supportive care, Strict I/O, Avoid Nephrotoxins CKD stage 3- Cr in [facility] records 1.3 in 2017 No Interval labs HyperNatremia - free water flushes Acute hypoxic respiratory failure secondary to COVID-19 pneumonia/acute lung injury/early acute respiratory distress syndrome. Abnormal chest x-ray with bilateral interstitial infiltrates.Intubated , On MV Abnormal D-dimer, likely related to COVID pneumonia. Diabetes-Type II Hypertension Severe protein calorie malnutrition COMMENT/RELEVANT DATA Meds Current Medications Medications (Trade) Dose Ordered Sig/Quinn Start Time Stop Time Status Last Admin Dose Admin Acetaminophen (Tylenol) 650 mg PRN Q6HRS PRN 11/28/19 17:45 11/30/19 08:45 650 MG Acetaminophen/ Hydrocodone Bitart (Lortab 5/325) 1 tab PRN Q6HRS PRN 11/28/19 17:45 UNV Amlodipine Besylate (Norvasc) 10 mg DAILY 12/04/19 09:00 12/06/19 18:39 DC 12/06/19 07:58 10 MG Ascorbic Acid (Vitamin C) 500 mg BID 12/04/19 21:00 12/11/19 08:35 500 MG Aspirin (Aspirin Chewable) 81 mg DAILY 11/29/19 09:00 12/11/19 08:35 81 MG Atorvastatin Calcium (Lipitor) 40 mg QHS 11/28/19 21:00 12/10/19 21:13 40 MG Atropine Sulfate (ATROPINE 0.5mg SYRINGE) 0.5 mg PRN Q5MIN PRN 12/07/19 07:30 Atropine Sulfate (ATROPINE 1mg SYRINGE) 1 mg STK-MED ONCE 12/08/19 09:30 12/09/19 09:05 DC Cyclobenzaprine HCl (Flexeril) 10 mg PRN TID PRN 12/02/19 06:45 12/06/19 20:16 10 MG Dexmedetomidine HCl 400 mcg/ Sodium Chloride 100 ml @ 7.23 mls/hr CONT PRN 12/07/19 07:30 12/07/19 12:52 7.23 MLS/HR Dextrose (Dextrose 50%-Water Syringe) 12.5 gm PRN Q15MIN PRN 12/01/19 12:15 Diltiazem HCl (Cardizem Iv Push) 10 mg 1X ONCE 12/07/19 09:00 12/07/19 09:01 DC 12/07/19 09:13 10 MG Diltiazem HCl 125 mg/Sodium Chloride 125 ml @ 5 mls/hr CONT PRN 12/07/19 09:00 12/07/19 09:33 5 MLS/HR Enoxaparin Sodium (Lovenox 40mg Syringe) 40 mg Q12HR 11/29/19 09:00 11/30/19 10:00 DC 11/29/19 20:52 40 MG Enoxaparin Sodium (Lovenox 80mg Syringe) 80 mg 1X ONCE 11/28/19 19:00 11/28/19 19:01 DC 11/28/19 19:10 80 MG Ephedrine Sulfate (ePHEDrine PF IN SALINE SYRINGE) 50 mg STK-MED ONCE 12/07/19 12:00 12/09/19 08:49 DC Epinephrine HCl (EPINEPHrine SYRINGE) 2 mg STK-MED ONCE 12/08/19 09:30 12/09/19 09:05 DC Etomidate (Amidate) 20 mg STK-MED ONCE 12/07/19 12:00 12/09/19 08:48 DC Famotidine (Pepcid Vial) 20 mg DAILY 12/04/19 09:00 12/11/19 08:35 20 MG Fentanyl Citrate 55 ml @ 0 mls/hr CONT PRN PRN 12/07/19 21:30 12/11/19 07:27 4 MLS/HR Fentanyl Citrate (Fentanyl 2ml Vial) 50 mcg PRN Q1HR PRN 12/07/19 19:45 Furosemide (Lasix) 40 mg 1X ONCE 12/09/19 14:30 12/09/19 14:31 DC 12/09/19 14:30 40 MG Glipizide (Glucotrol) 2.5 mg DAILY 11/29/19 09:00 12/01/19 08:12 DC 11/30/19 08:44 2.5 MG Haloperidol Lactate (Haldol Inj) 2.5 mg PRN Q6HRS PRN 12/06/19 10:45 12/07/19 03:19 2.5 MG Heparin Sodium (Porcine) (Heparin Sodium) 2,150 unit PRN Q6HRS PRN 12/07/19 10:45 12/11/19 06:29 2,150 UNIT Heparin Sodium/ Dextrose 250 ml @ 20 mls/hr CONT PRN 12/07/19 10:45 12/10/19 19:13 20 MLS/HR Hydralazine HCl (Apresoline Inj) 20 mg PRN Q4HRS PRN 12/06/19 15:30 12/09/19 22:33 20 MG Hydrochlorothiazide (Hydrodiuril) 25 mg DAILY 11/29/19 09:00 12/01/19 12:52 DC 12/01/19 08:17 25 MG Info (Anti-Coagulation Monitoring By Pharmacy) 1 each PRN DAILY PRN 12/09/19 13:00 12/10/19 10:14 1 EACH Info (Icu Electrolyte Protocol) 1 ea DAILY 11/29/19 09:00 11/28/19 18:16 DC Insulin Glargine (Lantus Syringe) 30 unit BID 12/01/19 21:00 12/10/19 21:14 30 UNIT Insulin Human Lispro (HumaLOG) 0-9 UNITS Q6HRS 12/08/19 18:00 12/11/19 06:13 4 UNITS Lactobacillus Rhamnosus (Culturelle) 1 cap BID 12/02/19 21:00 12/11/19 08:35 1 CAP Lactulose (Lactulose) 20 gm PRN Q12HR PRN 11/28/19 17:45 Lisinopril (Prinivil) 40 mg DAILY 11/29/19 09:00 12/01/19 12:52 DC 12/01/19 08:19 40 MG Lorazepam (Ativan Inj) 0.5 mg PRN Q6HRS PRN 11/28/19 17:45 12/06/19 22:50 0.5 MG Magnesium Sulfate 50 ml @ 25 mls/hr 1X ONCE 12/07/19 09:45 12/07/19 11:44 DC 12/07/19 11:05 25 MLS/HR Methylprednisolone Sodium Succinate (SOLU-Medrol 40MG VIAL) 40 mg Q8HRS 12/03/19 14:00 12/11/19 06:00 40 MG Methylprednisolone Sodium Succinate (SOLU-Medrol 125MG VIAL) 60 mg Q8HRS 11/30/19 09:00 12/03/19 10:50 DC 12/03/19 05:38 60 MG Metoprolol Tartrate (Lopressor) 25 mg PRN BID PRN 12/05/19 22:30 Cancel Midazolam HCl 100 ml @ 0 mls/hr CONT PRN 12/07/19 19:45 12/11/19 06:12 10 MLS/HR Morphine Sulfate (Morphine Sulfate) 1 mg PRN Q1HR PRN 11/28/19 17:45 12/10/19 01:00 DC Nicardipine HCl 50 mg/Sodium Chloride 250 ml @ 25 mls/hr CONT PRN 12/06/19 18:45 12/10/19 10:28 12.5 MLS/HR Non-Formulary Medication 1 ea/ Sodium Chloride 230 ml @ 460 mls/hr Q24H 12/09/19 12:00 12/12/19 12:29 12/10/19 09:16 460 MLS/HR Ondansetron HCl (Zofran) 4 mg PRN Q6HRS PRN 11/28/19 17:45 Phenylephrine HCl (PHENYLEPHRINE in 0.9% NACL PF) 1 mg STK-MED ONCE 12/07/19 12:00 12/09/19 08:49 DC Piperacillin Sod/ Tazobactam Sod (Zosyn Per Pharmacy) 1 each PRN DAILY PRN 11/30/19 08:45 12/10/19 17:04 DC Piperacillin Sod/ Tazobactam Sod 3.375 gm/Sodium Chloride 50 ml @ 100 mls/hr Q6HRS 11/30/19 12:00 12/10/19 17:03 DC 12/10/19 12:07 100 MLS/HR Potassium Chloride (Klor-Con) 40 meq 1X ONCE 11/29/19 16:45 11/29/19 16:46 DC 11/29/19 17:15 40 MEQ Propofol (Diprivan) 200 mg STK-MED ONCE 12/07/19 12:00 12/09/19 08:49 DC Senna/Docusate Sodium (Senna Plus) 1 tab BID 11/28/19 21:00 12/11/19 08:35 1 TAB Sodium Chloride 500 ml @ 500 mls/hr 1X PRN PRN 12/07/19 07:30 Sodium Chloride (Normal Saline Flush) 3 ml QSHIFT PRN 11/28/19 17:45 Sterile Water (WATER for RESP) 1,000 ml CONT PRN 11/30/19 17:30 12/07/19 15:37 1,000 ML Succinylcholine Chloride (Anectine) 200 mg STK-MED ONCE 12/07/19 12:00 12/09/19 08:49 DC Tamsulosin HCl (Flomax) 0.4 mg DAILY 11/29/19 09:00 12/11/19 08:35 0.4 MG Thiamine Mononitrate (Vitamin B-1) 100 mg BID 12/04/19 21:00 12/11/19 08:35 100 MG Thiamine HCl 200 mg/Dextrose 52 ml @ 102 mls/hr Q12HR 11/28/19 19:30 12/04/19 14:59 DC 12/04/19 09:23 102 MLS/HR Vecuronium [place] 50 mg/ Miscellaneous 50 ml @ 7.598 mls/ hr CONT PRN 12/10/19 21:00 Vecuronium [place] (Norcuron Bolus) 8 mg PRN Q2HR PRN 12/10/19 21:00 Vitamin D (Vitamin D3) 1,000 unit BID 11/28/19 21:00 12/11/19 08:35 1,000 UNIT Zinc Sulfate (Orazinc) 220 mg DAILY 11/29/19 09:00 12/11/19 08:35 220 MG Lab Laboratory Tests Test 12/10/19 09:15 12/10/19 11:57 12/10/19 13:30 12/10/19 16:49 O2 Saturation 97 % (92-99) Arterial Blood pH 7.39 (7.35-7.45) Arterial Blood pCO2 at Patient Temp 44 mmHg (35-46) Arterial Blood pO2 at Patient Temp 93 mmHg (65-108) Arterial Blood HCO3 26 mmol/L (21-28) Arterial Blood Base Excess 1 mmol/L (-3-3) FiO2 100 Glucose (Fingerstick) 227 mg/dL (70-99) 212 mg/dL (70-99) Heparin Anti-Xa Act, Unfractionated > 1.10 IU/mL (0.30-0.70) Test 12/10/19 23:20 12/11/19 00:00 12/11/19 05:30 12/11/19 05:58 Heparin Anti-Xa Act, Unfractionated 0.50 IU/mL (0.30-0.70) 0.29 IU/mL (0.30-0.70) Glucose (Fingerstick) 239 mg/dL (70-99) 194 mg/dL (70-99) White Blood Count 13.0 x10^3/uL (4.0-11.0) Red Blood Count 3.27 x10^6/uL (4.30-5.70) Hemoglobin 9.8 g/dL (13.0-17.5) Hematocrit 30.6 % (39.0-53.0) Mean Corpuscular Volume 94 fL (79-100) Mean Corpuscular Hemoglobin 30 pg (25-35) Mean Corpuscular Hemoglobin Concent 32 g/dL (31-37) Red Cell Distribution Width 14.7 % (11.5-14.5) Platelet Count 214 x10^3/uL (140-400) Sodium Level 145 mmol/L (136-145) Potassium Level 4.2 mmol/L (3.5-5.1) Chloride Level 110 mmol/L (98-107) Carbon Dioxide Level 30 mmol/L (21-32) Anion Gap 5 (6-14) Blood Urea Nitrogen 56 mg/dL (8-26) Creatinine 1.8 mg/dL (0.7-1.3) Estimated GFR (Cockcroft-Gault) 45.5 Glucose Level 235 mg/dL (70-99) Calcium Level 7.7 mg/dL (8.5-10.1) Test 12/11/19 08:00 O2 Saturation 93 % (92-99) Arterial Blood pH 7.34 (7.35-7.45) Arterial Blood pCO2 at Patient Temp 49 mmHg (35-46) Arterial Blood pO2 at Patient Temp 73 mmHg (65-108) Arterial Blood HCO3 26 mmol/L (21-28) Arterial Blood Base Excess 0 mmol/L (-3-3) FiO2 100% vent Results All relevant outside records, renal labs, imaging studies, telemetry/EKG's were reviewed. Justicifation of Admission Dx: Justifications for Admission: Justification of Admission Dx: Yes Sepsis: Hypoxemia YUDY MARTINEZ MD Dec 11, 2019 08:57
[2019-12-11] MEDS: INSULIN GLARGINE SYRINGE. SQ SCH ×2 (09:00→21:17)
--- NOTE | 2019-12-11 10:23 | NUR ---
SS following up with discharge planning. SS reviewed pt chart and discussed with pt RN. Pt remains on the vent at this time. COVID19 positive. Pt accepted at [facility], ; fax [phone]. Per RN and physician, pt too unstable for transfer at this time. SS will continue to follow for discharge planning.
--- NOTE | 2019-12-11 10:38 | NUR ---
Dr. Qiu notified of blood pressure decreased to 86/43. Order for NS bolus 500 ml received.
--- NOTE | 2019-12-11 10:53 | RAD ---
PORTABLE CHEST 1V INDICATION: Intubation COMPARISON STUDY: 12/10/2019. FINDINGS: Life Support Devices: Stable endotracheal tube, enteric tube, and right IJ venous catheter. Lungs: Low lung volume. Stable bilateral perihilar and basilar heterogeneous opacities. Indistinct pulmonary vasculature. Pleura: Stable pleural spaces. Heart and Mediastinum: Stable cardiomediastinal silhouette and great vessels. IMPRESSION: 1. Stable bilateral perihilar and basilar heterogeneous opacities. 2. Stable life support devices. Electronically signed by: Alexandre Lucas MD (12/11/2019 10:50 AM) [id number]
--- NOTE | 2019-12-11 10:56 | PDOC ---
[employer] PROGRESS NOTE Date of Service DOS: DATE: 12/11/19 TIME: 10:53 Chief Complaint Chief Complaint COVID 19 infection/ viral sepsis acute hypoxemic respiratory distress due to the above. Acute renal failure due to vasomotor nephropathy normocytic anemia Diabetes-Type II High Cholesterol Hypertension Severe protein calorie malnutrition History of Present Illness History of Present Illness 12/11/2019 Patient seen and examined once again in the [place] [id number] ICU He is intubated Assist-control/24/6 100/100% with 9 of PEEP He has OG feeds running at 60 cc an hour He is on a heparin drip He is fentanyl and Versed for sedation Discussed with the skilled nursing case manager Discussed with RN Chart reviewed He remains critically ill 12-10-2019 Patient seen and examined in the [place] [address] ICU He is still intubated He is back on 100% FiO2 AC// 100/100% with 10 of PEEP I discussed the case with the skilled nursing case manager I spoke with his son Jayden yesterday by phone for quite some time Chart reviewed 12-09-2019 Patient seen and examined in the [place] [address] ICU He remains intubated Assist-control/24/6 100/90% with 7 of PEEP He is sedated with Versed propofol He is also on a heparin drip Also has fentanyl IV Discussed with case management Discussed with RN Chart reviewed I tried to call the family but no answer I left a voicemail Plan is to [facility] Mr Olvera is a 69yo M w/ PMHx Diabetes-Type II, High Cholesterol, Hypertension who was in his usual state of health until 2 days prior ot his admission when he was evaluated at [facility] and found to be positive for COVID 19 virus, patient was discharged and given instructions to follow up in the nearest medical center would his symptoms worsen, Today he felt worse and more dyspneic reason why he came to the ER, he initially requiring 1 liter of oxygen 11/28: Febrile 101 3 F overnight. Procalcitonin elevated, INR 1.4, WBC 9.1, Hb 11.9, platelets 189, NA 137, K3.4, BUN 39, CR 2.8, glucose 240. He is short of breath with cough. He is insistent he does not wish for convalescent FFP if his O2 needs continues to increase. Now on 4L NCO2. 11/29: Febrile to 101.5 F overnight. Creatinine increased to 4.1, he still very short of breath worsening cough, increased from 6 L nasal cannula overnight to 1 5 L nonrebreather facemask. I discussed with pulmonology to transferred out of the ICU. I have asked the patient to reconsider convalesce and FFP and will discuss with his family. 11/30: No acute events reported overnight, case discussed with nursing staff patient in no acute distress no complaints during my visit seems to be tolerating Vapotherm well hopefully he will be able to continue with improving, encourage proning position if tolerated 12/01: No acute events reported overnight, case discussed with nursing staff patient in no acute distress no complaints during my visit, given update patient's over the phone reassurance has been provided no new complaints seems to be status quo. Encourage more activity as tolerated in prone positioning 12/02: Discussed with nursing staff, no acute events overnight. Breathing well on Vapotherm. Continue ICU monitoring. 12/03: Patient with O2 desaturation overnight. Breathing more comfortably upright position. Currently breathing on 40 L of high flow nasal cannula with 100% O2 saturation 12/07 : PLACED ON VENT OVER NIGHT, inc resp distress Vitals/I&O Vitals/I&O: Vital Signs Date Time Temp Pulse Resp B/P (MAP) Pulse Ox O2 Delivery O2 Flow Rate FiO2 12/11/19 10:00 70 24 89/44 (59) 90 Ventilator 90/48 (62) 12/11/19 07:00 97.3 97.3 I & O 12/10/19 12/10/19 12/11/19 15:00 23:00 07:00 Intake Total 700 ml 2075.84 ml 2199.8 ml Output Total 475 ml 650 ml 495 ml Balance 225 ml 1425.84 ml 1704.8 ml Physical Exam Physical Exam: sedated on vent General: mild distress, Other Heart: Regular rate, Normal S1, Normal S2 Lungs: Crackles (Sedated on the vent) Abdomen: Normal bowel sounds, Soft Extremities: No clubbing, No cyanosis Skin: No rashes, No breakdown Labs Labs: Laboratory Tests Test 12/10/19 11:57 12/10/19 13:30 12/10/19 16:49 12/10/19 23:20 Glucose (Fingerstick) 227 mg/dL (70-99) 212 mg/dL (70-99) Heparin Anti-Xa Act, Unfractionated > 1.10 IU/mL (0.30-0.70) 0.50 IU/mL (0.30-0.70) Test 12/11/19 00:00 12/11/19 05:30 12/11/19 05:58 12/11/19 08:00 Glucose (Fingerstick) 239 mg/dL (70-99) 194 mg/dL (70-99) White Blood Count 13.0 x10^3/uL (4.0-11.0) Red Blood Count 3.27 x10^6/uL (4.30-5.70) Hemoglobin 9.8 g/dL (13.0-17.5) Hematocrit 30.6 % (39.0-53.0) Mean Corpuscular Volume 94 fL (79-100) Mean Corpuscular Hemoglobin 30 pg (25-35) Mean Corpuscular Hemoglobin Concent 32 g/dL (31-37) Red Cell Distribution Width 14.7 % (11.5-14.5) Platelet Count 214 x10^3/uL (140-400) Heparin Anti-Xa Act, Unfractionated 0.29 IU/mL (0.30-0.70) Sodium Level 145 mmol/L (136-145) Potassium Level 4.2 mmol/L (3.5-5.1) Chloride Level 110 mmol/L (98-107) Carbon Dioxide Level 30 mmol/L (21-32) Anion Gap 5 (6-14) Blood Urea Nitrogen 56 mg/dL (8-26) Creatinine 1.8 mg/dL (0.7-1.3) Estimated GFR (Cockcroft-Gault) 45.5 Glucose Level 235 mg/dL (70-99) Calcium Level 7.7 mg/dL (8.5-10.1) O2 Saturation 93 % (92-99) Arterial Blood pH 7.34 (7.35-7.45) Arterial Blood pCO2 at Patient Temp 49 mmHg (35-46) Arterial Blood pO2 at Patient Temp 73 mmHg (65-108) Arterial Blood HCO3 26 mmol/L (21-28) Arterial Blood Base Excess 0 mmol/L (-3-3) FiO2 100% vent Review of Systems Review of Systems: Unable to obtain Assessment and Plan Assessmemt and Plan Problems Medical Problems: (1) ARF (acute renal failure) Status: Acute (2) Fever Status: Acute (3) Hypoxemia Status: Acute (4) Sepsis Status: Acute COVID 19 infection/ viral sepsis acute hypoxemic respiratory distress due to the above. Acute renal failure due to vasomotor nephropathy normocytic anemia Diabetes-Type II High Cholesterol Hypertension Severe protein calorie malnutrition Plan COVID 19 protocol including antibiotics vitamins with minerals convalescent pl asma steroids ICU monitoring Respiratory isolation Vent weaning Home meds DVT prophylaxis Continue her heparin drip Fentanyl and propofol for sedation His prognosis is extremely guarded as he is on 100% FiO2 He is critically ill 33minutes cc time Comment Review of Relevant I have reviewed the following items bren (where applicable) has been applied. Justifications for Admission Other Justification ANGELICA BUI III DO Dec 11, 2019 10:56
[2019-12-11] MEDS: REMDESIVIR 100mg in NORMAL SALINE 250ML X 4 DAYS IV SCH (11:11)
--- NOTE | 2019-12-11 11:21 | PDOC ---
PULMONARY PROGRESS NOTES DATE: 12/11/19 TIME: 11:20 Subjective Patient became increasingly more short of air, decreased sats, did not tolerate BiPAP intubated 12/07 remains on AC mode, high flow FIO2 Vitals Vital Signs Date Time Temp Pulse Resp B/P (MAP) Pulse Ox O2 Delivery O2 Flow Rate FiO2 12/11/19 10:00 70 24 89/44 (59) 90 Ventilator 90/48 (62) 12/11/19 07:00 97.3 97.3 Comments visual exam done Now on assist control ventilation appears to be in sync some edema noted to the lower extremities General: No acute distress Lungs: Crackles (Sedated on the vent) Labs Laboratory Tests Test 12/09/19 11:50 12/09/19 17:17 12/10/19 00:03 12/10/19 05:45 Glucose (Fingerstick) 199 mg/dL (70-99) 184 mg/dL (70-99) 228 mg/dL (70-99) Heparin Anti-Xa Act, Unfractionated 0.11 IU/mL (0.30-0.70) Sodium Level 146 mmol/L (136-145) Potassium Level 4.0 mmol/L (3.5-5.1) Chloride Level 110 mmol/L (98-107) Carbon Dioxide Level 30 mmol/L (21-32) Anion Gap 6 (6-14) Blood Urea Nitrogen 52 mg/dL (8-26) Creatinine 1.9 mg/dL (0.7-1.3) Estimated GFR (Cockcroft-Gault) 42.7 BUN/Creatinine Ratio 27 (6-20) Glucose Level 231 mg/dL (70-99) Calcium Level 7.8 mg/dL (8.5-10.1) Total Bilirubin 0.3 mg/dL (0.2-1.0) Aspartate Amino Transf (AST/SGOT) 31 U/L (15-37) Alanine Aminotransferase (ALT/SGPT) 64 U/L (16-63) Alkaline Phosphatase 190 U/L (46-116) Total Protein 5.5 g/dL (6.4-8.2) Albumin 1.4 g/dL (3.4-5.0) Albumin/Globulin Ratio 0.3 (1.0-1.7) Test 12/10/19 05:48 12/10/19 09:15 12/10/19 11:57 12/10/19 13:30 Glucose (Fingerstick) 233 mg/dL (70-99) 227 mg/dL (70-99) O2 Saturation 97 % (92-99) Arterial Blood pH 7.39 (7.35-7.45) Arterial Blood pCO2 at Patient Temp 44 mmHg (35-46) Arterial Blood pO2 at Patient Temp 93 mmHg (65-108) Arterial Blood HCO3 26 mmol/L (21-28) Arterial Blood Base Excess 1 mmol/L (-3-3) FiO2 100 Heparin Anti-Xa Act, Unfractionated > 1.10 IU/mL (0.30-0.70) Test 12/10/19 16:49 12/10/19 23:20 12/11/19 00:00 12/11/19 05:30 Glucose (Fingerstick) 212 mg/dL (70-99) 239 mg/dL (70-99) Heparin Anti-Xa Act, Unfractionated 0.50 IU/mL (0.30-0.70) 0.29 IU/mL (0.30-0.70) White Blood Count 13.0 x10^3/uL (4.0-11.0) Red Blood Count 3.27 x10^6/uL (4.30-5.70) Hemoglobin 9.8 g/dL (13.0-17.5) Hematocrit 30.6 % (39.0-53.0) Mean Corpuscular Volume 94 fL (79-100) Mean Corpuscular Hemoglobin 30 pg (25-35) Mean Corpuscular Hemoglobin Concent 32 g/dL (31-37) Red Cell Distribution Width 14.7 % (11.5-14.5) Platelet Count 214 x10^3/uL (140-400) Sodium Level 145 mmol/L (136-145) Potassium Level 4.2 mmol/L (3.5-5.1) Chloride Level 110 mmol/L (98-107) Carbon Dioxide Level 30 mmol/L (21-32) Anion Gap 5 (6-14) Blood Urea Nitrogen 56 mg/dL (8-26) Creatinine 1.8 mg/dL (0.7-1.3) Estimated GFR (Cockcroft-Gault) 45.5 Glucose Level 235 mg/dL (70-99) Calcium Level 7.7 mg/dL (8.5-10.1) Test 12/11/19 05:58 12/11/19 08:00 Glucose (Fingerstick) 194 mg/dL (70-99) O2 Saturation 93 % (92-99) Arterial Blood pH 7.34 (7.35-7.45) Arterial Blood pCO2 at Patient Temp 49 mmHg (35-46) Arterial Blood pO2 at Patient Temp 73 mmHg (65-108) Arterial Blood HCO3 26 mmol/L (21-28) Arterial Blood Base Excess 0 mmol/L (-3-3) FiO2 100% vent Laboratory Tests Test 12/10/19 11:57 12/10/19 13:30 12/10/19 16:49 12/10/19 23:20 Glucose (Fingerstick) 227 mg/dL (70-99) 212 mg/dL (70-99) Heparin Anti-Xa Act, Unfractionated > 1.10 IU/mL (0.30-0.70) 0.50 IU/mL (0.30-0.70) Test 12/11/19 00:00 12/11/19 05:30 12/11/19 05:58 12/11/19 08:00 Glucose (Fingerstick) 239 mg/dL (70-99) 194 mg/dL (70-99) White Blood Count 13.0 x10^3/uL (4.0-11.0) Red Blood Count 3.27 x10^6/uL (4.30-5.70) Hemoglobin 9.8 g/dL (13.0-17.5) Hematocrit 30.6 % (39.0-53.0) Mean Corpuscular Volume 94 fL (79-100) Mean Corpuscular Hemoglobin 30 pg (25-35) Mean Corpuscular Hemoglobin Concent 32 g/dL (31-37) Red Cell Distribution Width 14.7 % (11.5-14.5) Platelet Count 214 x10^3/uL (140-400) Heparin Anti-Xa Act, Unfractionated 0.29 IU/mL (0.30-0.70) Sodium Level 145 mmol/L (136-145) Potassium Level 4.2 mmol/L (3.5-5.1) Chloride Level 110 mmol/L (98-107) Carbon Dioxide Level 30 mmol/L (21-32) Anion Gap 5 (6-14) Blood Urea Nitrogen 56 mg/dL (8-26) Creatinine 1.8 mg/dL (0.7-1.3) Estimated GFR (Cockcroft-Gault) 45.5 Glucose Level 235 mg/dL (70-99) Calcium Level 7.7 mg/dL (8.5-10.1) O2 Saturation 93 % (92-99) Arterial Blood pH 7.34 (7.35-7.45) Arterial Blood pCO2 at Patient Temp 49 mmHg (35-46) Arterial Blood pO2 at Patient Temp 73 mmHg (65-108) Arterial Blood HCO3 26 mmol/L (21-28) Arterial Blood Base Excess 0 mmol/L (-3-3) FiO2 100% vent Medications Active Scripts Medications Dose Route/Sig Max Daily Dose Days Date Category Fisher 5-325 Tablet (Acetaminophen/Hydrocodone Bitart) 1 Each Tablet 1 Tab PO PRN Q6HRS PRN 03/20/18 Rx Orphenadrine Citrate 100 Mg Tablet.er 1 Tab PO BID 03/20/18 Rx Amlodipine Besylate 5 Mg Tablet 5 Mg PO DAILY 02/20/17 Rx Lisinopril 40 Mg Tablet 40 Mg PO DAILY 02/18/17 Reported Glipizide 5 Mg Tablet 2.5 Mg PO DAILY 02/18/17 Reported Hydrochlorothiazide Tablet (Hydrochlorothiazide) 12.5 Mg Tablet 25 Mg PO DAILY 02/18/17 Reported Furosemide 20 Mg Tablet 20 Mg PO DAILY 02/18/17 Reported Tamsulosin Hcl 0.4 Mg Cap.er.24h 1 Cap PO DAILY 02/18/17 Reported Aspirin 81 Mg Tab.chew 81 Mg PO DAILY 02/18/17 Reported Metformin Hcl 500 Mg Tablet 500 Mg PO DAILY 02/18/17 Reported Comments CXR Impression: Bilateral perihilar infiltrates. CXR 12/05/19 Impression: Slight interval increase in the bilateral perihilar infiltrates. Impression . 1. Acute hypoxic respiratory failure secondary to COVID-19 pneumonia/acute lung injury/early acute respiratory distress syndrome. 2. Abnormal chest x-ray with bilateral interstitial infiltrates, suggestive of COVID-19 pneumonia.-- 3. No significant tobacco history. 4. Acute kidney injury on top of CKD with baseline cr of 1.3--- stable 5. Severe protein-calorie malnutrition. 6. Abnormal D-dimer, likely related to COVID pneumonia. 7. New onset A. fib with rapid ventricular response Chest x-ray IMPRESSION: 1. Bilateral perihilar and basilar opacities, slightly improved in the lung bases. 2. Improved or redistributed small bilateral pleural effusions. 3. Stable endotracheal tube. Plan . Intubated 12/07 for increasing shortness of air and decrease saturation remains on AC mode make changes based on FIO2. on 100%FIO2/10 PEEP, not much room to wean Initiated Remdesivir 12/07 Follow cardiology input for new onset A. fib Lasix as needed Continue steroids with taper for COVID-19 pneumonia, will need total of 10 days empiric antibiotics Follow renal recommendations, cr improving slowly S/P plasma D-dimers elevated secondary to, patient on full dose hep (for A-fib) Pt accepted at [facility] but not stable for transfer DVT/GI PPX - D/W RN and RT TOTAL CRITICAL CARE TIME: 30 minutes. ABBY MOORE MD Dec 11, 2019 11:21
[2019-12-11] MEDS: ANTI-COAG MONITOR BY PHARMACY. MC PRN (11:52)
[2019-12-11] MEDS: HEPARIN 25,000UTS/250ML PREMIX 250 ML IV PRN (20:44)
[2019-12-11] MEDS: ATORVASTATIN CALCIUM 40 MG TABLET. PO SCH (21:16)
[2019-12-12] VITALS (24 sets, daily range): BP systolic 113–192; BP diastolic 51–72
[2019-12-12] MEDS: PROPOFOL 100 ML IV PRN ×3 (00:36→17:53)
[2019-12-12] MEDS: VECURONIUM BOLUS 10 MG VIAL. IV PRN (00:59)
[2019-12-12] MEDS: VECURONIUM BROMIDE 50 MG in TOTAL VOLUME 50 ML IV PRN ×3 (02:42→17:05)
[2019-12-12] MEDS: MIDAZOLAM 100mg/100ml NS BAG 100 ML IV PRN ×3 (02:42→21:20)
[2019-12-12] MEDS: INSULIN LISPRO 300 UNITS/3 ML VIAL. SQ SCH ×4 (06:00→18:04)
[2019-12-12] MEDS: methylPREDNISolone SOD SUCC PF 40 MG/ML VIAL. IV SCH ×3 (06:23→21:15)
[2019-12-12 08:25] LABS: BASE EXCESS ABG -2 mmol/L (-3-3); HCO3 ABG 24 mmol/L (21-28); PCO2 ABG 45 mmHg (35-46); PO2 ABG 67 mmHg (65-108); SAT O2 ABG 92 % (92-99)
[2019-12-12] MEDS: SENNOSIDES/DOCUSATE 8.6/50MG TABLET. PO SCH ×2 (08:27→21:15)
[2019-12-12] MEDS: THIAMINE 100 MG TABLET. PO SCH ×2 (08:27→21:15)
[2019-12-12] MEDS: TAMSULOSIN 0.4 MG CAP.ER.24H. PO SCH (08:27)
[2019-12-12] MEDS: ZINC SULFATE 220 MG CAPSULE. PO SCH (08:27)
[2019-12-12] MEDS: CHOLECALCIFEROL (VITAMIN D3) 1,000 UNIT TABLET PO SCH ×2 (08:27→21:15)
[2019-12-12] MEDS: ASCORBIC ACID 500 MG TABLET PO SCH ×2 (08:28→21:15)
[2019-12-12] MEDS: FAMOTIDINE 20 MG/2 ML VIAL IVP SCH (08:28)
[2019-12-12] MEDS: LACTOBACILLUS RHAMNOSUS GG 1 CAPSULE. PO SCH ×2 (08:28→21:18)
[2019-12-12] MEDS: ASPIRIN CHEWABLE 81 MG TABLET. PO SCH (08:28)
[2019-12-12] MEDS: INSULIN GLARGINE SYRINGE. SQ SCH ×2 (08:29→21:16)
[2019-12-12 08:49] LABS: FIO2 ABG 100
--- NOTE | 2019-12-12 09:15 | PDOC ---
DATE OF SERVICE DATE: 12/12/19 TIME: 09:15 SUBJECTIVE ROS Remains Intubated, became Hypothermic last night, currently on heating blanket Also became Hypotensive OBJECTIVE Vital Signs Vital Signs Date Time Temp Pulse Resp B/P (MAP) Pulse Ox O2 Delivery O2 Flow Rate FiO2 12/12/19 08:00 Mechanical Ventilator 12/12/19 08:00 150/60 (90) 12/12/19 08:00 97.2 60 24 99 97.2 12/12/19 00:00 35.0 I & 0 Intake and Output 12/12/19 07:00 Intake Total 4801.71 ml Output Total 1235 ml Balance 3566.71 ml IV Total 1167.71 ml Tube Feeding 2549 ml Other 1085 ml Output Urine Total 1235 ml PHYSICAL EXAM Physical Exam Visual Exam (During Global CoViD 19 pandemic) GEN.: Intubated, On MV HEENT: Head is normocephalic LUNGS: No use of accessory muscles HEART: RRR, ABDOMEN: obese, EXTREMITIES: Trace Bilat LE edema + NEUROLOGIC: sedated SKIN: No rash Pringle + DIAGNOSIS/ASSESSMENT Assessment & Plan CHAYITO - ATN , peaked at 4.1 improved to 1.5, Worsening again Recd Lasix IV , Clinically worsening, developed Hypothermia, Hypotension Non oliguric but noted some decline in UOP , will get a Temp HDC , may need [employer]PER[employer] , re-evaluate in am E-Lytes stable , Supportive care, Strict I/O, Avoid Nephrotoxins CKD stage 3- Cr in [facility] records 1.3 in 2017 No Interval labs HyperNatremia - resolved , free water flushes Acute hypoxic respiratory failure secondary to COVID-19 pneumonia/acute lung injury/early acute respiratory distress syndrome. Abnormal chest x-ray with bilateral interstitial infiltrates.Intubated , On MV Abnormal D-dimer, likely related to COVID pneumonia. Diabetes-Type II Hypertension Severe protein calorie malnutrition COMMENT/RELEVANT DATA Meds Current Medications Medications (Trade) Dose Ordered Sig/Quinn Start Time Stop Time Status Last Admin Dose Admin Acetaminophen (Tylenol) 650 mg PRN Q6HRS PRN 11/28/19 17:45 11/30/19 08:45 650 MG Acetaminophen/ Hydrocodone Bitart (Lortab 5/325) 1 tab PRN Q6HRS PRN 11/28/19 17:45 UNV Amlodipine Besylate (Norvasc) 10 mg DAILY 12/04/19 09:00 12/06/19 18:39 DC 12/06/19 07:58 10 MG Ascorbic Acid (Vitamin C) 500 mg BID 12/04/19 21:00 12/12/19 08:28 500 MG Aspirin (Aspirin Chewable) 81 mg DAILY 11/29/19 09:00 12/12/19 08:28 81 MG Atorvastatin Calcium (Lipitor) 40 mg QHS 11/28/19 21:00 12/11/19 21:16 40 MG Atropine Sulfate (ATROPINE 0.5mg SYRINGE) 0.5 mg PRN Q5MIN PRN 12/07/19 07:30 Atropine Sulfate (ATROPINE 1mg SYRINGE) 1 mg STK-MED ONCE 12/08/19 09:30 12/09/19 09:05 DC Cyclobenzaprine HCl (Flexeril) 10 mg PRN TID PRN 12/02/19 06:45 12/06/19 20:16 10 MG Dexmedetomidine HCl 400 mcg/ Sodium Chloride 100 ml @ 7.23 mls/hr CONT PRN 12/07/19 07:30 12/07/19 12:52 7.23 MLS/HR Dextrose (Dextrose 50%-Water Syringe) 12.5 gm PRN Q15MIN PRN 12/01/19 12:15 Diltiazem HCl (Cardizem Iv Push) 10 mg 1X ONCE 12/07/19 09:00 12/07/19 09:01 DC 12/07/19 09:13 10 MG Diltiazem HCl 125 mg/Sodium Chloride 125 ml @ 5 mls/hr CONT PRN 12/07/19 09:00 12/07/19 09:33 5 MLS/HR Enoxaparin Sodium (Lovenox 40mg Syringe) 40 mg Q12HR 11/29/19 09:00 11/30/19 10:00 DC 11/29/19 20:52 40 MG Enoxaparin Sodium (Lovenox 80mg Syringe) 80 mg 1X ONCE 11/28/19 19:00 11/28/19 19:01 DC 11/28/19 19:10 80 MG Ephedrine Sulfate (ePHEDrine PF IN SALINE SYRINGE) 50 mg STK-MED ONCE 12/07/19 12:00 12/09/19 08:49 DC Epinephrine HCl (EPINEPHrine SYRINGE) 2 mg STK-MED ONCE 12/08/19 09:30 12/09/19 09:05 DC Etomidate (Amidate) 20 mg STK-MED ONCE 12/07/19 12:00 12/09/19 08:48 DC Famotidine (Pepcid Vial) 20 mg DAILY 12/04/19 09:00 12/12/19 08:28 20 MG Fentanyl Citrate 55 ml @ 0 mls/hr CONT PRN PRN 12/07/19 21:30 12/11/19 21:11 4 MLS/HR Fentanyl Citrate (Fentanyl 2ml Vial) 50 mcg PRN Q1HR PRN 12/07/19 19:45 Furosemide (Lasix) 40 mg 1X ONCE 12/09/19 14:30 12/09/19 14:31 DC 12/09/19 14:30 40 MG Glipizide (Glucotrol) 2.5 mg DAILY 11/29/19 09:00 12/01/19 08:12 DC 11/30/19 08:44 2.5 MG Haloperidol Lactate (Haldol Inj) 2.5 mg PRN Q6HRS PRN 12/06/19 10:45 12/07/19 03:19 2.5 MG Heparin Sodium (Porcine) (Heparin Sodium) 2,150 unit PRN Q6HRS PRN 12/07/19 10:45 12/11/19 06:29 2,150 UNIT Heparin Sodium/ Dextrose 250 ml @ 20 mls/hr CONT PRN 12/07/19 10:45 12/11/19 20:44 20 MLS/HR Hydralazine HCl (Apresoline Inj) 20 mg PRN Q4HRS PRN 12/06/19 15:30 12/09/19 22:33 20 MG Hydrochlorothiazide (Hydrodiuril) 25 mg DAILY 11/29/19 09:00 12/01/19 12:52 DC 12/01/19 08:17 25 MG Info (Anti-Coagulation Monitoring By Pharmacy) 1 each PRN DAILY PRN 12/09/19 13:00 12/11/19 11:52 1 EACH Info ([facility]cu Electrolyte Protocol) 1 ea DAILY 11/29/19 09:00 11/28/19 18:16 DC Insulin Glargine (Lantus Syringe) 30 unit BID 12/01/19 21:00 12/12/19 08:29 30 UNIT Insulin Human Lispro (HumaLOG) 0-9 UNITS Q6HRS 12/08/19 18:00 12/11/19 11:45 4 UNITS Lactobacillus Rhamnosus (Culturelle) 1 cap BID 12/02/19 21:00 12/12/19 08:28 1 CAP Lactulose (Lactulose) 20 gm PRN Q12HR PRN 11/28/19 17:45 Lisinopril (Prinivil) 40 mg DAILY 11/29/19 09:00 12/01/19 12:52 DC 12/01/19 08:19 40 MG Lorazepam (Ativan Inj) 0.5 mg PRN Q6HRS PRN 11/28/19 17:45 12/06/19 22:50 0.5 MG Magnesium Sulfate 50 ml @ 25 mls/hr 1X ONCE 12/07/19 09:45 12/07/19 11:44 DC 12/07/19 11:05 25 MLS/HR Methylprednisolone Sodium Succinate (SOLU-Medrol 40MG VIAL) 40 mg Q8HRS 12/03/19 14:00 12/12/19 06:23 40 MG Methylprednisolone Sodium Succinate (SOLU-Medrol 125MG VIAL) 60 mg Q8HRS 11/30/19 09:00 12/03/19 10:50 DC 12/03/19 05:38 60 MG Metoprolol Tartrate (Lopressor) 25 mg PRN BID PRN 12/05/19 22:30 Cancel Midazolam HCl 100 ml @ 0 mls/hr CONT PRN 12/07/19 19:45 12/12/19 02:42 10 MLS/HR Morphine Sulfate (Morphine Sulfate) 1 mg PRN Q1HR PRN 11/28/19 17:45 12/10/19 01:00 DC Nicardipine HCl 50 mg/Sodium Chloride 250 ml @ 25 mls/hr CONT PRN 12/06/19 18:45 12/10/19 10:28 12.5 MLS/HR Non-Formulary Medication 1 ea/ Sodium Chloride 230 ml @ 460 mls/hr Q24H 12/09/19 12:00 12/12/19 12:29 12/11/19 11:11 460 MLS/HR Ondansetron HCl (Zofran) 4 mg PRN Q6HRS PRN 11/28/19 17:45 Phenylephrine HCl (PHENYLEPHRINE in 0.9% NACL PF) 1 mg STK-MED ONCE 12/07/19 12:00 12/09/19 08:49 DC Piperacillin Sod/ Tazobactam Sod (Zosyn Per Pharmacy) 1 each PRN DAILY PRN 11/30/19 08:45 12/10/19 17:04 DC Piperacillin Sod/ Tazobactam Sod 3.375 gm/Sodium Chloride 50 ml @ 100 mls/hr Q6HRS 11/30/19 12:00 12/10/19 17:03 DC 12/10/19 12:07 100 MLS/HR Potassium Chloride (Klor-Con) 40 meq 1X ONCE 11/29/19 16:45 11/29/19 16:46 DC 11/29/19 17:15 40 MEQ Propofol (Diprivan) 200 mg STK-MED ONCE 12/07/19 12:00 12/09/19 08:49 DC Senna/Docusate Sodium (Senna Plus) 1 tab BID 11/28/19 21:00 12/12/19 08:27 1 TAB Sodium Chloride 500 ml @ 500 mls/hr 1X PRN PRN 12/07/19 07:30 Sodium Chloride (Normal Saline Flush) 3 ml QSHIFT PRN 11/28/19 17:45 Sterile Water (WATER for RESP) 1,000 ml CONT PRN 11/30/19 17:30 12/07/19 15:37 1,000 ML Succinylcholine Chloride (Anectine) 200 mg STK-MED ONCE 12/07/19 12:00 12/09/19 08:49 DC Tamsulosin HCl (Flomax) 0.4 mg DAILY 11/29/19 09:00 12/12/19 08:27 0.4 MG Thiamine Mononitrate (Vitamin B-1) 100 mg BID 12/04/19 21:00 12/12/19 08:27 100 MG Thiamine HCl 200 mg/Dextrose 52 ml @ 102 mls/hr Q12HR 11/28/19 19:30 12/04/19 14:59 DC 12/04/19 09:23 102 MLS/HR Vecuronium [place] 50 mg/ Miscellaneous 50 ml @ 7.598 mls/ hr CONT PRN 12/10/19 21:00 9/4/20 08:23 5.8 MLS/HR Vecuronium [place] (Norcuron Bolus) 8 mg PRN Q2HR PRN 12/10/19 21:00 12/12/19 00:59 8 MG Vitamin D (Vitamin D3) 1,000 unit BID 11/28/19 21:00 12/12/19 08:27 1,000 UNIT Zinc Sulfate (Orazinc) 220 mg DAILY 11/29/19 09:00 12/12/19 08:27 220 MG Lab Laboratory Tests Test 12/11/19 11:37 12/11/19 13:20 12/11/19 16:42 12/11/19 20:20 Glucose (Fingerstick) 159 mg/dL (70-99) 121 mg/dL (70-99) Heparin Anti-Xa Act, Unfractionated 0.65 IU/mL (0.30-0.70) 0.57 IU/mL (0.30-0.70) Test 12/12/19 00:10 12/12/19 06:00 12/12/19 06:13 12/12/19 08:20 Glucose (Fingerstick) 95 mg/dL (70-99) 140 mg/dL (70-99) Heparin Anti-Xa Act, Unfractionated 0.42 IU/mL (0.30-0.70) O2 Saturation 92 % (92-99) Arterial Blood pH 7.35 (7.35-7.45) Arterial Blood pCO2 at Patient Temp 45 mmHg (35-46) Arterial Blood pO2 at Patient Temp 67 mmHg (65-108) Arterial Blood HCO3 24 mmol/L (21-28) Arterial Blood Base Excess -2 mmol/L (-3-3) FiO2 100 Results All relevant outside records, renal labs, imaging studies, telemetry/EKG's were reviewed. Other . Diffuse interstitial and alveolar opacities, unchanged. 2. Small bilateral pleural effusions, unchanged. 3. Stable support devices including right lateral neck catheter. Justicifation of Admission Dx: Justifications for Admission: Justification of Admission Dx: Yes Sepsis: Hypoxemia YUDY MARTINEZ MD Dec 12, 2019 09:15
[2019-12-12 09:31] LABS: CALCIUM 7.5 mg/dL (8.5-10.1); CREATININE 2.5 mg/dL (0.7-1.3); GFR 31.1; POTASSIUM 4.7 mmol/L (3.5-5.1)
--- NOTE | 2019-12-12 10:06 | RAD ---
PORTABLE CHEST 1V History: Reason: Intubation / Spl. Instructions: / History: Comparison: December 11, 2019 Findings: Diffuse interstitial and alveolar opacities, unchanged. Small bilateral pleural effusions, unchanged. Unchanged heart size. Stable endotracheal tube and enteric tube. Unchanged right neck catheter. Impression: 1. Diffuse interstitial and alveolar opacities, unchanged. 2. Small bilateral pleural effusions, unchanged. 3. Stable support devices including right lateral neck catheter. Electronically signed by: Óscar Terry DO (12/12/2019 10:02 AM) [id number]
[2019-12-12] MEDS: fentaNYL HIGH DOSE PCA 55 ML IV PRN (10:40)
--- NOTE | 2019-12-12 10:49 | PDOC ---
[employer] PROGRESS NOTE Date of Service DOS: DATE: 12/12/19 TIME: 10:47 Chief Complaint Chief Complaint COVID 19 infection/ viral sepsis acute hypoxemic respiratory distress due to the above. Acute renal failure due to vasomotor nephropathy normocytic anemia Diabetes-Type II High Cholesterol Hypertension Severe protein calorie malnutrition History of Present Illness History of Present Illness 12/12/2019 Patient seen in ICU [place] [address] unit He remains intubated and mechanically ventilated AC/24/6 100/100% with 10 of PEEP He is sedated with propofol Versed and fentanyl I discussed the case with the mattress spring encaser discussed with RNs as well Chart reviewed He remains very critically ill as he is on 100% oxygen 12/11/2019 Patient seen and examined once again in the [place] [address] ICU He is intubated Assist-control/24/6 100/100% with 9 of PEEP He has OG feeds running at 60 cc an hour He is on a heparin drip He is fentanyl and Versed for sedation Discussed with the mattress spring encaser Discussed with RN Chart reviewed He remains critically ill 12-10-2019 Patient seen and examined in the [place] [address] ICU He is still intubated He is back on 100% FiO2 AC/24/6 100/100% with 10 of PEEP I discussed the case with the mattress spring encaser I spoke with his son Jayden yesterday by phone for quite some time Chart reviewed 12-09-2019 Patient seen and examined in the [place] [address] ICU He remains intubated Assist-control/24/6 100/90% with 7 of PEEP He is sedated with Versed propofol He is also on a heparin drip Also has fentanyl IV Discussed with case management Discussed with RN Chart reviewed I tried to call the family but no answer I left a voicemail Plan is to [facility] if possible Mr Olvera is a 69yo M w/ PMHx Diabetes-Type II, High Cholesterol, Hypertension who was in his usual state of health until 2 days prior ot his admission when he was evaluated at [facility] and found to be positive for COVID 19 virus, patient was discharged and given instructions to follow up in the nearest medical center would his symptoms worsen, Today he felt worse and more dyspneic reason why he came to the ER, he initially requiring 1 liter of oxygen 11/28: Febrile 101 3 F overnight. Procalcitonin elevated, INR 1.4, WBC 9.1, Hb 11.9, platelets 189, NA 137, K3.4, BUN 39, CR 2.8, glucose 240. He is short of breath with cough. He is insistent he does not wish for convalescent FFP if his O2 needs continues to increase. Now on 4L NCO2. 11/29: Febrile to 101.5 F overnight. Creatinine increased to 4.1, he still very short of breath worsening cough, increased from 6 L nasal cannula overnight to 15 L nonrebreather facemask. I discussed with pulmonology to transferred out of the ICU. I have asked the patient to reconsider convalesce and FFP and will discuss with his family. 11/30: No acute events reported overnight, case discussed with nursing staff patient in no acute distress no complaints during my visit seems to be tolerating Vapotherm well hopefully he will be able to continue with improving, encourage proning position if tolerated 12/01: No acute events reported overnight, case discussed with nursing staff patient in no acute distress no complaints during my visit, given update patient's over the phone reassurance has been provided no new complaints seems to be status quo. Encourage more activity as tolerated in prone positioning 12/02: Discussed with nursing staff, no acute events overnight. Breathing well on Vapotherm. Continue ICU monitoring. 12/03: Patient with O2 desaturation overnight. Breathing more comfortably upright position. Currently breathing on 40 L of high flow nasal cannula with 100% O2 saturation 12/07 : PLACED ON VENT OVER NIGHT, inc resp distress Vitals/I&O Vitals/I&O: Vital Signs Date Time Temp Pulse Resp B/P (MAP) Pulse Ox O2 Delivery O2 Flow Rate FiO2 12/12/19 08:00 Mechanical Ventilator 12/12/19 08:00 150/60 (90) 12/12/19 08:00 97.2 60 24 99 97.2 12/12/19 00:00 35.0 I & O 12/11/19 12/11/19 12/12/19 15:00 23:00 07:00 Intake Total 920 ml 1742.41 ml 2139.3 ml Output Total 250 ml 185 ml 800 ml Balance 670 ml 1557.41 ml 1339.3 ml Physical Exam Physical Exam: sedated on vent General: mild distress, Other Heart: Regular rate, Normal S1, Normal S2 Lungs: Crackles (Sedated on the vent) Abdomen: Normal bowel sounds, Soft Extremities: No clubbing, No cyanosis Skin: No rashes, No breakdown Labs Labs: Laboratory Tests Test 12/11/19 11:37 12/11/19 13:20 12/11/19 16:42 12/11/19 20:20 Glucose (Fingerstick) 159 mg/dL (70-99) 121 mg/dL (70-99) Heparin Anti-Xa Act, Unfractionated 0.65 IU/mL (0.30-0.70) 0.57 IU/mL (0.30-0.70) Test 12/12/19 00:10 12/12/19 06:00 12/12/19 06:13 12/12/19 08:20 Glucose (Fingerstick) 95 mg/dL (70-99) 140 mg/dL (70-99) Heparin Anti-Xa Act, Unfractionated 0.42 IU/mL (0.30-0.70) Sodium Level 144 mmol/L (136-145) Potassium Level 4.7 mmol/L (3.5-5.1) Chloride Level 109 mmol/L (98-107) Carbon Dioxide Level 30 mmol/L (21-32) Anion Gap 5 (6-14) Blood Urea Nitrogen 77 mg/dL (8-26) Creatinine 2.5 mg/dL (0.7-1.3) Estimated GFR (Cockcroft-Gault) 31.1 Glucose Level 143 mg/dL (70-99) Calcium Level 7.5 mg/dL (8.5-10.1) O2 Saturation 92 % (92-99) Arterial Blood pH 7.35 (7.35-7.45) Arterial Blood pCO2 at Patient Temp 45 mmHg (35-46) Arterial Blood pO2 at Patient Temp 67 mmHg (65-108) Arterial Blood HCO3 24 mmol/L (21-28) Arterial Blood Base Excess -2 mmol/L (-3-3) FiO2 100 Assessment and Plan Assessmemt and Plan Problems Medical Problems: (1) ARF (acute renal failure) Status: Acute (2) Fever Status: Acute (3) Hypoxemia Status: Acute (4) Sepsis Status: Acut COVID 19 infection/ viral sepsis acute hypoxemic respiratory distress due to the above. Acute renal failure due to vasomotor nephropathy normocytic anemia Diabetes-Type II High Cholesterol Hypertension Severe protein calorie malnutrition Plan COVID 19 protocol including antibiotics vitamins with minerals convalescent plasma steroids ICU monitoring Respiratory isolation Vent weaning Home meds DVT prophylaxis Continue her heparin drip Fentanyl and propofol for sedation His prognosis is extremely guarded as he is on 100% FiO2 He is critically ill 31minutes cc time Per nephrology recommendations please see below and I certainly agree; ESRD/ARF: Current fluid and E-lyte status does not necessitate emergent need for dialysis. Will re-evaluate for dialysis in the am and continue on [] schedule. ANEMIA; [] Aranap as ordered, [] Transfuse [] with next HD as needed HTN: Current BP meds as reviewed. See orders for changes. BONE & MINERAL: [] Comment Review of Relevant I have reviewed the following items bren (where applicable) has been applied. Justifications for Admission Other Justification ANGELICA BUI III DO Dec 12, 2019 10:49
--- NOTE | 2019-12-12 10:50 | PDOC ---
PULMONARY PROGRESS NOTES DATE: 12/12/19 TIME: 10:45 Subjective Patient became increasingly more short of air, decreased sats, did not tolerate BiPAP intubated 12/07 remains on AC mode, high flow FIO2 100%/ 10 PEEP started on vec drip last night worsening renal function Vitals Vital Signs Date Time Temp Pulse Resp B/P (MAP) Pulse Ox O2 Delivery O2 Flow Rate FiO2 12/12/19 08:00 Mechanical Ventilator 12/12/19 08:00 150/60 (90) 12/12/19 08:00 97.2 60 24 99 97.2 12/12/19 00:00 35.0 Comments visual exam done Now on assist control ventilation appears to be in sync some edema noted to the lower extremities General: No acute distress Labs Laboratory Tests Test 12/10/19 11:57 12/10/19 13:30 12/10/19 16:49 12/10/19 23:20 Glucose (Fingerstick) 227 mg/dL (70-99) 212 mg/dL (70-99) Heparin Anti-Xa Act, Unfractionated > 1.10 IU/mL (0.30-0.70) 0.50 IU/mL (0.30-0.70) Test 12/11/19 00:00 12/11/19 05:30 12/11/19 05:58 12/11/19 08:00 Glucose (Fingerstick) 239 mg/dL (70-99) 194 mg/dL (70-99) White Blood Count 13.0 x10^3/uL (4.0-11.0) Red Blood Count 3.27 x10^6/uL (4.30-5.70) Hemoglobin 9.8 g/dL (13.0-17.5) Hematocrit 30.6 % (39.0-53.0) Mean Corpuscular Volume 94 fL (79-100) Mean Corpuscular Hemoglobin 30 pg (25-35) Mean Corpuscular Hemoglobin Concent 32 g/dL (31-37) Red Cell Distribution Width 14.7 % (11.5-14.5) Platelet Count 214 x10^3/uL (140-400) Heparin Anti-Xa Act, Unfractionated 0.29 IU/mL (0.30-0.70) Sodium Level 145 mmol/L (136-145) Potassium Level 4.2 mmol/L (3.5-5.1) Chloride Level 110 mmol/L (98-107) Carbon Dioxide Level 30 mmol/L (21-32) Anion Gap 5 (6-14) Blood Urea Nitrogen 56 mg/dL (8-26) Creatinine 1.8 mg/dL (0.7-1.3) Estimated GFR (Cockcroft-Gault) 45.5 Glucose Level 235 mg/dL (70-99) Calcium Level 7.7 mg/dL (8.5-10.1) O2 Saturation 93 % (92-99) Arterial Blood pH 7.34 (7.35-7.45) Arterial Blood pCO2 at Patient Temp 49 mmHg (35-46) Arterial Blood pO2 at Patient Temp 73 mmHg (65-108) Arterial Blood HCO3 26 mmol/L (21-28) Arterial Blood Base Excess 0 mmol/L (-3-3) FiO2 100% vent Test 12/11/19 11:37 12/11/19 13:20 12/11/19 16:42 12/11/19 20:20 Glucose (Fingerstick) 159 mg/dL (70-99) 121 mg/dL (70-99) Heparin Anti-Xa Act, Unfractionated 0.65 IU/mL (0.30-0.70) 0.57 IU/mL (0.30-0.70) Test 12/12/19 00:10 12/12/19 06:00 12/12/19 06:13 12/12/19 08:20 Glucose (Fingerstick) 95 mg/dL (70-99) 140 mg/dL (70-99) Heparin Anti-Xa Act, Unfractionated 0.42 IU/mL (0.30-0.70) Sodium Level 144 mmol/L (136-145) Potassium Level 4.7 mmol/L (3.5-5.1) Chloride Level 109 mmol/L (98-107) Carbon Dioxide Level 30 mmol/L (21-32) Anion Gap 5 (6-14) Blood Urea Nitrogen 77 mg/dL (8-26) Creatinine 2.5 mg/dL (0.7-1.3) Estimated GFR (Cockcroft-Gault) 31.1 Glucose Level 143 mg/dL (70-99) Calcium Level 7.5 mg/dL (8.5-10.1) O2 Saturation 92 % (92-99) Arterial Blood pH 7.35 (7.35-7.45) Arterial Blood pCO2 at Patient Temp 45 mmHg (35-46) Arterial Blood pO2 at Patient Temp 67 mmHg (65-108) Arterial Blood HCO3 24 mmol/L (21-28) Arterial Blood Base Excess -2 mmol/L (-3-3) FiO2 100 Laboratory Tests Test 12/11/19 11:37 12/11/19 13:20 12/11/19 16:42 12/11/19 20:20 Glucose (Fingerstick) 159 mg/dL (70-99) 121 mg/dL (70-99) Heparin Anti-Xa Act, Unfractionated 0.65 IU/mL (0.30-0.70) 0.57 IU/mL (0.30-0.70) Test 12/12/19 00:10 12/12/19 06:00 12/12/19 06:13 12/12/19 08:20 Glucose (Fingerstick) 95 mg/dL (70-99) 140 mg/dL (70-99) Heparin Anti-Xa Act, Unfractionated 0.42 IU/mL (0.30-0.70) Sodium Level 144 mmol/L (136-145) Potassium Level 4.7 mmol/L (3.5-5.1) Chloride Level 109 mmol/L (98-107) Carbon Dioxide Level 30 mmol/L (21-32) Anion Gap 5 (6-14) Blood Urea Nitrogen 77 mg/dL (8-26) Creatinine 2.5 mg/dL (0.7-1.3) Estimated GFR (Cockcroft-Gault) 31.1 Glucose Level 143 mg/dL (70-99) Calcium Level 7.5 mg/dL (8.5-10.1) O2 Saturation 92 % (92-99) Arterial Blood pH 7.35 (7.35-7.45) Arterial Blood pCO2 at Patient Temp 45 mmHg (35-46) Arterial Blood pO2 at Patient Temp 67 mmHg (65-108) Arterial Blood HCO3 24 mmol/L (21-28) Arterial Blood Base Excess -2 mmol/L (-3-3) FiO2 100 Medications Active Scripts Medications Dose Route/Sig Max Daily Dose Days Date Category [place] 5-325 Tablet (Acetaminophen/Hydrocodone Bitart) 1 Each Tablet 1 Tab PO PRN Q6HRS PRN 03/20/18 Rx Orphenadrine Citrate 100 Mg Tablet.er 1 Tab PO BID 03/20/18 Rx Amlodipine Besylate 5 Mg Tablet 5 Mg PO DAILY 02/20/17 Rx Lisinopril 40 Mg Tablet 40 Mg PO DAILY 02/18/17 Reported Glipizide 5 Mg Tablet 2.5 Mg PO DAILY 02/18/17 Reported Hydrochlorothiazide Tablet (Hydrochlorothiazide) 12.5 Mg Tablet 25 Mg PO DAILY 02/18/17 Reported Furosemide 20 Mg Tablet 20 Mg PO DAILY 02/18/17 Reported Tamsulosin Hcl 0.4 Mg Cap.er.24h 1 Cap PO DAILY 02/18/17 Reported Aspirin 81 Mg Tab.chew 81 Mg PO DAILY 02/18/17 Reported Metformin Hcl 500 Mg Tablet 500 Mg PO DAILY 02/18/17 Reported Comments CXR Impression: Bilateral perihilar infiltrates. CXR 12/05/19 Impression: Slight interval increase in the bilateral perihilar infiltrates. Impression . 1. Acute hypoxic respiratory failure secondary to COVID-19 pneumonia/acute lung injury/ acute respiratory distress syndrome. 2. Abnormal chest x-ray with bilateral interstitial infiltrates, suggestive of COVID-19 pneumonia.-- 3. No significant tobacco history. 4. Acute kidney injury on top of CKD , worsening 5. Severe protein-calorie malnutrition. 6. Abnormal D-dimer, likely related to COVID pneumonia. 7. New onset A. fib with rapid ventricular response, controlled Chest x-ray IMPRESSION: 1. Bilateral perihilar and basilar opacities, slightly improved in the lung bases. 2. Improved or redistributed small bilateral pleural effusions. 3. Stable endotracheal tube. Plan . Intubated 12/07 for increasing shortness of air and decrease saturation remains on AC mode make changes based on FIO2. on 100%FIO2/10 PEEP, not much room to wean Initiated Remdesivir 12/07 Follow cardiology input for new onset A. fib, resolved now hold off Lasix . Try fluids May need HD Continue steroids with taper for COVID-19 pneumonia, will need total of 10 days empiric antibiotics Follow renal recommendations, S/P plasma D-dimers elevated secondary to, patient on full dose hep (for A-fib) Pt accepted at [facility] but not stable for transfer DVT/GI PPX - D/W RN and RT TOTAL CRITICAL CARE TIME: 30 minutes. ABBY MOORE MD Dec 12, 2019 10:50
[2019-12-12] MEDS: IV NORMAL SALINE 500ML BAG 500 ML IV SCH ×3 (11:00→12:02)
--- NOTE | 2019-12-12 11:17 | NUR ---
SS following up with discharge planning. SS reviewed pt chart and discussed with pt RN. Pt remains on the vent at this time. COVID19 positive. Pt accepted at [facility], ; fax [phone]. SS phoned and faxed clinical updates to [facility]. SS will continue to follow for discharge planning.
[2019-12-12] MEDS ORDERED: LIDOCAINE WITH 8.4% SOD BICARB 3 ML DISP.SYRIN. ONE (11:36)
[2019-12-12] MEDS: REMDESIVIR 100mg in NORMAL SALINE 250ML X 4 DAYS IV SCH (11:42)
[2019-12-12] MEDS ORDERED: LIDOCAINE WITH 8.4% SOD BICARB 3 ML DISP.SYRIN. INJ ONE (12:45)
[2019-12-12] MEDS: ANTI-COAG MONITOR BY PHARMACY. MC PRN ×2 (13:05→13:07)
--- NOTE | 2019-12-12 14:23 | RAD ---
PORTABLE CHEST 1V 12/12/2019 1:23 PM INDICATION: Dialysis access placement confirmation COMPARISON: 12/12/2019 TECHNIQUE: Portable frontal view of the chest is provided. FINDINGS: The cardiomediastinal silhouette is similar in appearance. Right chest wall dialysis catheter is identified with the distal tip projecting over the right atrium. Endotracheal tube is identified with the distal tip terminating 4.9 cm above the level of the monet. Nasogastric tube is identified coursing below the level of the diaphragm with distal tip not visualized on this radiograph. Suspected right subclavian approach central venous catheter is identified with the distal tip projecting over the proximal superior vena cava. Increased patchy interstitial and alveolar airspace disease which may reflect worsening pulmonary edema. Trace bilateral pleural effusions. No pneumothorax. No suspicious osseous abnormality. IMPRESSION: Right IJ dialysis catheter is identified with the distal tip projecting over the right atrium. No pneumothorax. Increased patchy interstitial and alveolar airspace disease suggestive of worsening pulmonary edema. Electronically signed by: Naomi Valenzuela MD (12/12/2019 2:21 PM) [facility]
--- NOTE | 2019-12-12 14:46 | NUR ---
Phone call from Irlanda CANTOR in IR about central line in "odd placement". Discussed with Dr. Meyer who was on the unit who discussed with Dr. Perdomo. Line is flushing fine and good blood return. No change in placement at this time.
[2019-12-12] MEDS: HEPARIN 25,000UTS/250ML PREMIX 250 ML IV PRN (20:15)
[2019-12-12] MEDS: ATORVASTATIN CALCIUM 40 MG TABLET. PO SCH (21:15)
[2019-12-12] MEDS: hydrALAZINE 20 MG/ML VIAL. IVP PRN (23:12)
[2019-12-13] VITALS (26 sets, daily range): BP systolic 106–185; BP diastolic 44–75
[2019-12-13] MEDS: fentaNYL HIGH DOSE PCA 55 ML IV PRN ×2 (00:40→14:00)
[2019-12-13] MEDS: VECURONIUM BROMIDE 50 MG in TOTAL VOLUME 50 ML IV PRN (02:21)
--- NOTE | 2019-12-13 04:52 | NUR ---
Nursing Note: Vec gtt turned off earlier into shift due to loss of train of four. Facial twitch present in 0430 assesment however, left Vec on hold due to patient tolerating vent settings. Pt with vomit around mouth, residuals 250, placed Tube feedings on hold for now.
[2019-12-13] MEDS: PROPOFOL 100 ML IV PRN (05:31)
[2019-12-13] MEDS: methylPREDNISolone SOD SUCC PF 40 MG/ML VIAL. IV SCH ×3 (05:33→21:26)
[2019-12-13 05:46] LABS: HEMATOCRIT 28.9 % (39.0-53.0); HEMOGLOBIN 9.3 g/dL (13.0-17.5); RED BLOOD COUNT 3.08 x10^6/uL (4.30-5.70); RED CELL DISTRIBUTION WIDTH 15.1 % (11.5-14.5); WHITE BLOOD COUNT 13.4 x10^3/uL (4.0-11.0)
[2019-12-13 05:54] LABS: CALCIUM 7.8 mg/dL (8.5-10.1); CREATININE 2.1 mg/dL (0.7-1.3); GFR 38.1
[2019-12-13] MEDS: INSULIN LISPRO 300 UNITS/3 ML VIAL. SQ SCH ×4 (06:05→17:54)
[2019-12-13 08:44] LABS: BASE EXCESS ABG -1 mmol/L (-3-3); HCO3 ABG 26 mmol/L (21-28); PCO2 ABG 49 mmHg (35-46); PO2 ABG 72 mmHg (65-108); SAT O2 ABG 93 % (92-99)
[2019-12-13 09:13] LABS: FIO2 ABG 100
[2019-12-13] MEDS: MIDAZOLAM 100mg/100ml NS BAG 100 ML IV PRN ×2 (09:41→21:25)
[2019-12-13] MEDS: SENNOSIDES/DOCUSATE 8.6/50MG TABLET. PO SCH ×2 (10:10→21:25)
[2019-12-13] MEDS: ASPIRIN CHEWABLE 81 MG TABLET. PO SCH (10:10)
[2019-12-13] MEDS: ASCORBIC ACID 500 MG TABLET PO SCH ×2 (10:10→21:25)
[2019-12-13] MEDS: LACTOBACILLUS RHAMNOSUS GG 1 CAPSULE. PO SCH ×2 (10:10→21:26)
[2019-12-13] MEDS: TAMSULOSIN 0.4 MG CAP.ER.24H. PO SCH (10:10)
[2019-12-13] MEDS: CHOLECALCIFEROL (VITAMIN D3) 1,000 UNIT TABLET PO SCH ×2 (10:10→21:25)
[2019-12-13] MEDS: ZINC SULFATE 220 MG CAPSULE. PO SCH (10:10)
[2019-12-13] MEDS: THIAMINE 100 MG TABLET. PO SCH ×2 (10:10→21:25)
[2019-12-13] MEDS: INSULIN GLARGINE SYRINGE. SQ SCH ×2 (10:11→21:00)
[2019-12-13] MEDS: FAMOTIDINE 20 MG/2 ML VIAL IVP SCH (10:11)
--- NOTE | 2019-12-13 10:25 | PDOC ---
PULMONARY PROGRESS NOTES DATE: 12/13/19 TIME: 10:22 Subjective intubated 12/07 remains on AC mode,peep 10 fi02 90% on propofol versed fentanyl worsening renal function Vitals Vital Signs Date Time Temp Pulse Resp B/P (MAP) Pulse Ox O2 Delivery O2 Flow Rate FiO2 12/13/19 08:30 98 Ventilator 12/13/19 08:00 12/13/19 07:00 97.2 66 24 97.2 Comments visual exam done on vent sedated nc at rrr no accessory muscle use no paradoxical abd motion no rash +edema General: No acute distress Labs Laboratory Tests Test 12/11/19 11:37 12/11/19 13:20 12/11/19 16:42 12/11/19 20:20 Glucose (Fingerstick) 159 mg/dL (70-99) 121 mg/dL (70-99) Heparin Anti-Xa Act, Unfractionated 0.65 IU/mL (0.30-0.70) 0.57 IU/mL (0.30-0.70) Test 12/12/19 00:10 12/12/19 06:00 12/12/19 06:13 12/12/19 08:20 Glucose (Fingerstick) 95 mg/dL (70-99) 140 mg/dL (70-99) Heparin Anti-Xa Act, Unfractionated 0.42 IU/mL (0.30-0.70) Sodium Level 144 mmol/L (136-145) Potassium Level 4.7 mmol/L (3.5-5.1) Chloride Level 109 mmol/L (98-107) Carbon Dioxide Level 30 mmol/L (21-32) Anion Gap 5 (6-14) Blood Urea Nitrogen 77 mg/dL (8-26) Creatinine 2.5 mg/dL (0.7-1.3) Estimated GFR (Cockcroft-Gault) 31.1 Glucose Level 143 mg/dL (70-99) Calcium Level 7.5 mg/dL (8.5-10.1) O2 Saturation 92 % (92-99) Arterial Blood pH 7.35 (7.35-7.45) Arterial Blood pCO2 at Patient Temp 45 mmHg (35-46) Arterial Blood pO2 at Patient Temp 67 mmHg (65-108) Arterial Blood HCO3 24 mmol/L (21-28) Arterial Blood Base Excess -2 mmol/L (-3-3) FiO2 100 Test 12/12/19 12:01 12/12/19 17:56 12/12/19 23:58 12/13/19 05:30 Glucose (Fingerstick) 148 mg/dL (70-99) 185 mg/dL (70-99) 234 mg/dL (70-99) White Blood Count 13.4 x10^3/uL (4.0-11.0) Red Blood Count 3.08 x10^6/uL (4.30-5.70) Hemoglobin 9.3 g/dL (13.0-17.5) Hematocrit 28.9 % (39.0-53.0) Mean Corpuscular Volume 94 fL (79-100) Mean Corpuscular Hemoglobin 30 pg (25-35) Mean Corpuscular Hemoglobin Concent 32 g/dL (31-37) Red Cell Distribution Width 15.1 % (11.5-14.5) Platelet Count 150 x10^3/uL (140-400) Heparin Anti-Xa Act, Unfractionated 0.37 IU/mL (0.30-0.70) Sodium Level 144 mmol/L (136-145) Potassium Level 5.0 mmol/L (3.5-5.1) Chloride Level 109 mmol/L (98-107) Carbon Dioxide Level 30 mmol/L (21-32) Anion Gap 5 (6-14) Blood Urea Nitrogen 75 mg/dL (8-26) Creatinine 2.1 mg/dL (0.7-1.3) Estimated GFR (Cockcroft-Gault) 38.1 Glucose Level 212 mg/dL (70-99) Calcium Level 7.8 mg/dL (8.5-10.1) Test 12/13/19 08:40 O2 Saturation 93 % (92-99) Arterial Blood pH 7.34 (7.35-7.45) Arterial Blood pCO2 at Patient Temp 49 mmHg (35-46) Arterial Blood pO2 at Patient Temp 72 mmHg (65-108) Arterial Blood HCO3 26 mmol/L (21-28) Arterial Blood Base Excess -1 mmol/L (-3-3) FiO2 100 Laboratory Tests Test 12/12/19 12:01 12/12/19 17:56 12/12/19 23:58 12/13/19 05:30 Glucose (Fingerstick) 148 mg/dL (70-99) 185 mg/dL (70-99) 234 mg/dL (70-99) White Blood Count 13.4 x10^3/uL (4.0-11.0) Red Blood Count 3.08 x10^6/uL (4.30-5.70) Hemoglobin 9.3 g/dL (13.0-17.5) Hematocrit 28.9 % (39.0-53.0) Mean Corpuscular Volume 94 fL (79-100) Mean Corpuscular Hemoglobin 30 pg (25-35) Mean Corpuscular Hemoglobin Concent 32 g/dL (31-37) Red Cell Distribution Width 15.1 % (11.5-14.5) Platelet Count 150 x10^3/uL (140-400) Heparin Anti-Xa Act, Unfractionated 0.37 IU/mL (0.30-0.70) Sodium Level 144 mmol/L (136-145) Potassium Level 5.0 mmol/L (3.5-5.1) Chloride Level 109 mmol/L (98-107) Carbon Dioxide Level 30 mmol/L (21-32) Anion Gap 5 (6-14) Blood Urea Nitrogen 75 mg/dL (8-26) Creatinine 2.1 mg/dL (0.7-1.3) Estimated GFR (Cockcroft-Gault) 38.1 Glucose Level 212 mg/dL (70-99) Calcium Level 7.8 mg/dL (8.5-10.1) Test 12/13/19 08:40 O2 Saturation 93 % (92-99) Arterial Blood pH 7.34 (7.35-7.45) Arterial Blood pCO2 at Patient Temp 49 mmHg (35-46) Arterial Blood pO2 at Patient Temp 72 mmHg (65-108) Arterial Blood HCO3 26 mmol/L (21-28) Arterial Blood Base Excess -1 mmol/L (-3-3) FiO2 100 Medications Active Scripts Medications Dose Route/Sig Max Daily Dose Days Date Category [place] 5-325 Tablet (Acetaminophen/Hydrocodone Bitart) 1 Each Tablet 1 Tab PO PRN Q6HRS PRN 03/20/18 Rx Orphenadrine Citrate 100 Mg Tablet.er 1 Tab PO BID 03/20/18 Rx Amlodipine Besylate 5 Mg Tablet 5 Mg PO DAILY 11/14/17 Rx Lisinopril 40 Mg Tablet 40 Mg PO DAILY 02/18/17 Reported Glipizide 5 Mg Tablet 2.5 Mg PO DAILY 02/18/17 Reported Hydrochlorothiazide Tablet (Hydrochlorothiazide) 12.5 Mg Tablet 25 Mg PO DAILY 02/18/17 Reported Furosemide 20 Mg Tablet 20 Mg PO DAILY 02/18/17 Reported Tamsulosin Hcl 0.4 Mg Cap.er.24h 1 Cap PO DAILY 02/18/17 Reported Aspirin 81 Mg Tab.chew 81 Mg PO DAILY 02/18/17 Reported Metformin Hcl 500 Mg Tablet 500 Mg PO DAILY 02/18/17 Reported Comments CXR reviewed Right IJ dialysis catheter is identified with the distal tip projecting over the right atrium. No pneumothorax. Increased patchy interstitial and alveolar airspace disease suggestive of worsening pulmonary edema. Impression . 1. Acute hypoxic respiratory failure secondary to COVID-19 pneumonia/acute lung injury/ acute respiratory distress syndrome. 2. Abnormal chest x-ray with bilateral interstitial infiltrates, COVID-19 pneumonia.-- 3. No significant tobacco history. 4. Acute kidney injury on top of CKD , worsening 5. Severe protein-calorie malnutrition. 6. Abnormal D-dimer, likely related to COVID pneumonia. 7. New onset A. fib with rapid ventricular response, controlled Plan . Intubated 12/07 for increasing shortness of air and decrease saturation cont AC mode, setting reviewed, titrate fio2 to keep sat >94% Remdesivir 12/07 Follow cardiology input for new onset A. fib, resolved now hold off Lasix . Try fluids May need HD Continue steroids with taper for COVID-19 pneumonia, will need total of 10 days empiric antibiotics Follow renal recommendations, S/P plasma D-dimers elevated secondary to, patient on full dose hep (for A-fib) Pt accepted at [facility] but not stable for transfer DVT/GI PPX - D/W RN and RT critically ill TOTAL CRITICAL CARE TIME: 30 minutes. no overlap SRINI RODRIGUEZ MD Dec 13, 2019 10:25
--- NOTE | 2019-12-13 10:58 | PDOC ---
[employer] PROGRESS NOTE Date of Service DOS: DATE: 12/13/19 TIME: 10:56 Chief Complaint Chief Complaint COVID 19 infection/ viral sepsis acute hypoxemic respiratory distress due to the above. Acute renal failure due to vasomotor nephropathy normocytic anemia Diabetes-Type II High Cholesterol Hypertension Severe protein calorie malnutrition History of Present Illness History of Present Illness 12/13/2019 Patient seen and examined in the [place] [id number] ICU He remains intubated Assist-control/24/6 100/90% with 10 of PEEP He has OG in place He is sedated with Versed fentanyl and propofol He also has a heparin drip Chart reviewed Discussed with RN He remains extremely critically ill we are concerned he may not survive 12/12/2019 Patient seen in ICU [place] [id number] unit He remains intubated and mechanically ventilated AC/24/6 100/100% with 10 of PEEP He is sedated with propofol Versed and fentanyl I discussed the case with the shoe caser discussed with RNs as well Chart reviewed He remains very critically ill as he is on 100% oxygen 12/11/2019 Patient seen and examined once again in the [place] [id number] ICU He is intubated Assist-control/24/6 100/100% with 9 of PEEP He has OG feeds running at 60 cc an hour He is on a heparin drip He is fentanyl and Versed for sedation Discussed with the shoe caser Discussed with RN Chart reviewed He remains critically ill 12-10-2019 Patient seen and examined in the [place] [id number] ICU He is still intubated He is back on 100% FiO2 AC/24/6 100/100% with 10 of PEEP I discussed the case with the shoe caser I spoke with his son Jayden yesterday by phone for quite some time Chart reviewed 12-09-2019 Patient seen and examined in the [place] [id number] ICU He remains intubated Assist-control/24/6 100/90% with 7 of PEEP He is sedated with Versed propofol He is also on a heparin drip Also has fentanyl IV Discussed with case management Discussed with RN Chart reviewed I tried to call the family but no answer I left a voicemail Plan is to discharge to [facility] later today if possible Mr Olvera is a 69yo M w/ PMHx Diabetes-Type II, High Cholesterol, Hypertension who was in his usual state of health until 2 days prior ot his admission when he was evaluated at [facility] and found to be positive for COVID 19 virus, patient was discharged and given instructions to follow up in the nearest medical center would his symptoms worsen, Today he felt worse and more dyspneic reason why he came to the ER, he initially requiring 1 liter of oxygen 11/28: Febrile 101 3 F overnight. Procalcitonin elevated, INR 1.4, WBC 9.1, Hb 11.9, platelets 189, NA 137, K3.4, BUN 39, CR 2.8, glucose 240. He is short of breath with cough. He is insistent he does not wish for convalescent FFP if his O2 needs continues to increase. Now on 4L NCO2. 11/29: Febrile to 101.5 F overnight. Creatinine increased to 4.1, he still very short of breath worsening cough, increased from 6 L nasal cannula overnight to 15 L nonrebreather facemask. I discussed with pulmonology to transferred out of the ICU. I have asked the patient to reconsider convalesce and FFP and will discuss with his family. 11/30: No acute events reported overnight, case discussed with nursing staff patient in no acute distress no complaints during my visit seems to be tolerating Vapotherm well hopefully he will be able to continue with improving, encourage proning position if tolerated 12/01: No acute events reported overnight, case discussed with nursing staff patient in no acute distress no complaints during my visit, given update patient's over the phone reassurance has been provided no new complaints seems to be status quo. Encourage more activity as tolerated in prone positioning 12/02: Discussed with nursing staff, no acute events overnight. Breathing well on Vapotherm. Continue ICU monitoring. 12/03: Patient with O2 desaturation overnight. Breathing more comfortably upright position. Currently breathing on 40 L of high flow nasal cannula with 100% O2 saturation 12/07 : PLACED ON VENT OVER NIGHT, inc resp distress Vitals/I&O Vitals/I&O: Vital Signs Date Time Temp Pulse Resp B/P (MAP) Pulse Ox O2 Delivery O2 Flow Rate FiO2 12/13/19 08:30 98 Ventilator 12/13/19 08:00 12/13/19 07:00 97.2 66 24 97.2 I & O 12/12/19 12/12/19 12/13/19 15:00 23:00 07:00 Intake Total 1130 ml 1867.23 ml 1813 ml Output Total 250 ml 1325 ml 870 ml Balance 880 ml 542.23 ml 943 ml Physical Exam Physical Exam: sedated on vent General: mild distress, Other Heart: Regular rate, Normal S1, Normal S2 Lungs: Crackles Abdomen: Normal bowel sounds, Soft Extremities: No clubbing, No cyanosis Skin: No rashes, No breakdown Labs Labs: Laboratory Tests Test 12/12/19 12:01 12/12/19 17:56 12/12/19 23:58 12/13/19 05:30 Glucose (Fingerstick) 148 mg/dL (70-99) 185 mg/dL (70-99) 234 mg/dL (70-99) White Blood Count 13.4 x10^3/uL (4.0-11.0) Red Blood Count 3.08 x10^6/uL (4.30-5.70) Hemoglobin 9.3 g/dL (13.0-17.5) Hematocrit 28.9 % (39.0-53.0) Mean Corpuscular Volume 94 fL (79-100) Mean Corpuscular Hemoglobin 30 pg (25-35) Mean Corpuscular Hemoglobin Concent 32 g/dL (31-37) Red Cell Distribution Width 15.1 % (11.5-14.5) Platelet Count 150 x10^3/uL (140-400) Heparin Anti-Xa Act, Unfractionated 0.37 IU/mL (0.30-0.70) Sodium Level 144 mmol/L (136-145) Potassium Level 5.0 mmol/L (3.5-5.1) Chloride Level 109 mmol/L (98-107) Carbon Dioxide Level 30 mmol/L (21-32) Anion Gap 5 (6-14) Blood Urea Nitrogen 75 mg/dL (8-26) Creatinine 2.1 mg/dL (0.7-1.3) Estimated GFR (Cockcroft-Gault) 38.1 Glucose Level 212 mg/dL (70-99) Calcium Level 7.8 mg/dL (8.5-10.1) Test 12/13/19 08:40 O2 Saturation 93 % (92-99) Arterial Blood pH 7.34 (7.35-7.45) Arterial Blood pCO2 at Patient Temp 49 mmHg (35-46) Arterial Blood pO2 at Patient Temp 72 mmHg (65-108) Arterial Blood HCO3 26 mmol/L (21-28) Arterial Blood Base Excess -1 mmol/L (-3-3) FiO2 100 Assessment and Plan Assessmemt and Plan Problems Medical Problems: (1) ARF (acute renal failure) Status: Acute (2) Fever Status: Acute (3) Hypoxemia Status: Acute (4) Sepsis Status: Acute COVID 19 infection/ viral sepsis acute hypoxemic respiratory distress due to the above. Acute renal failure due to vasomotor nephropathy normocytic anemia Diabetes-Type II High Cholesterol Hypertension Severe protein calorie malnutrition Plan COVID 19 protocol including antibiotics vitamins with minerals convalescent plasma steroids ICU monitoring OG feeds Trend labs Respiratory isolation Vent weaning Home meds DVT prophylaxis Continue her heparin drip Fentanyl and propofol for sedation His prognosis is extremely guarded and we are concerned he may not survive as he is on 100% FiO2 He is critically ill 32minutes cc time Comment Review of Relevant I have reviewed the following items bren (where applicable) has been applied. Medications: Current Medications Medications (Trade) Dose Ordered Sig/Quinn Route PRN Reason Start Time Stop Time Status Last Admin Dose Admin Sodium Chloride 500 ml @ 999 mls/hr Q31M IV 12/12/19 11:00 12/12/19 12:53 DC 12/12/19 11:31 Lidocaine HCl (Buffered Lidocaine 1%) 3 ml 1X ONCE INJ 12/12/19 12:45 12/12/19 12:49 DC 12/12/19 12:45 Justifications for Admission Other Justification ANGELICA BUI III DO Dec 13, 2019 10:57
[2019-12-13] MEDS: ANTI-COAG MONITOR BY PHARMACY. MC PRN (13:41)
--- NOTE | 2019-12-13 14:46 | PDOC ---
PROGRESS NOTES Date of Service DATE: 12/13/19 TIME: 14:44 Subjective Subjective SEEN IN FOLLOW UP OF ARF IN SETTING OF COVID 19 + Objective Objective Vital Signs Date Time Temp Pulse Resp B/P (MAP) Pulse Ox O2 Delivery O2 Flow Rate FiO2 12/13/19 14:00 23 100 Ventilator 12/13/19 13:00 96.4 52 158/64 (95) 96.4 12/12/19 00:00 35.0 Intake and Output 12/13/19 07:00 Intake Total 4810.23 ml Output Total 2445 ml Balance 2365.23 ml IV Total 1598.23 ml Tube Feeding 2412 ml Other 800 ml Output Urine Total 2245 ml Gastric Drainage Total 200 ml Physical Exam COMMENT NO BEDSIDE EXAM DUE TO + COVID 19 Diagnosis RENAL FAILURE: Acute (Acute tubular necrosis) Assessment Assessment Problems Medical Problems: (1) ARF (acute renal failure) Status: Acute (2) Fever Status: Acute (3) Hypoxemia Status: Acute (4) Sepsis Status: Acute Plan Plan of Care RENAL FUNCTION IS IMPROVING. NO NEED FOR DIALYSIS. CONT TO MONITOR Comment Review of Relevant I have reviewed the following items bren (where applicable) has been applied. Labs Laboratory Tests Test 12/11/19 16:42 12/11/19 20:20 12/12/19 00:10 12/12/19 06:00 Glucose (Fingerstick) 121 mg/dL (70-99) 95 mg/dL (70-99) Heparin Anti-Xa Act, Unfractionated 0.57 IU/mL (0.30-0.70) 0.42 IU/mL (0.30-0.70) Sodium Level 144 mmol/L (136-145) Potassium Level 4.7 mmol/L (3.5-5.1) Chloride Level 109 mmol/L (98-107) Carbon Dioxide Level 30 mmol/L (21-32) Anion Gap 5 (6-14) Blood Urea Nitrogen 77 mg/dL (8-26) Creatinine 2.5 mg/dL (0.7-1.3) Estimated GFR (Cockcroft-Gault) 31.1 Glucose Level 143 mg/dL (70-99) Calcium Level 7.5 mg/dL (8.5-10.1) Test 12/12/19 06:13 12/12/19 08:20 12/12/19 12:01 12/12/19 17:56 Glucose (Fingerstick) 140 mg/dL (70-99) 148 mg/dL (70-99) 185 mg/dL (70-99) O2 Saturation 92 % (92-99) Arterial Blood pH 7.35 (7.35-7.45) Arterial Blood pCO2 at Patient Temp 45 mmHg (35-46) Arterial Blood pO2 at Patient Temp 67 mmHg (65-108) Arterial Blood HCO3 24 mmol/L (21-28) Arterial Blood Base Excess -2 mmol/L (-3-3) FiO2 100 Test 12/12/19 23:58 12/13/19 05:30 12/13/19 08:40 12/13/19 13:05 Glucose (Fingerstick) 234 mg/dL (70-99) 121 mg/dL (70-99) White Blood Count 13.4 x10^3/uL (4.0-11.0) Red Blood Count 3.08 x10^6/uL (4.30-5.70) Hemoglobin 9.3 g/dL (13.0-17.5) Hematocrit 28.9 % (39.0-53.0) Mean Corpuscular Volume 94 fL (79-100) Mean Corpuscular Hemoglobin 30 pg (25-35) Mean Corpuscular Hemoglobin Concent 32 g/dL (31-37) Red Cell Distribution Width 15.1 % (11.5-14.5) Platelet Count 150 x10^3/uL (140-400) Heparin Anti-Xa Act, Unfractionated 0.37 IU/mL (0.30-0.70) Sodium Level 144 mmol/L (136-145) Potassium Level 5.0 mmol/L (3.5-5.1) Chloride Level 109 mmol/L (98-107) Carbon Dioxide Level 30 mmol/L (21-32) Anion Gap 5 (6-14) Blood Urea Nitrogen 75 mg/dL (8-26) Creatinine 2.1 mg/dL (0.7-1.3) Estimated GFR (Cockcroft-Gault) 38.1 Glucose Level 212 mg/dL (70-99) Calcium Level 7.8 mg/dL (8.5-10.1) O2 Saturation 93 % (92-99) Arterial Blood pH 7.34 (7.35-7.45) Arterial Blood pCO2 at Patient Temp 49 mmHg (35-46) Arterial Blood pO2 at Patient Temp 72 mmHg (65-108) Arterial Blood HCO3 26 mmol/L (21-28) Arterial Blood Base Excess -1 mmol/L (-3-3) FiO2 100 Laboratory Tests Test 12/12/19 17:56 12/12/19 23:58 12/13/19 05:30 12/13/19 08:40 Glucose (Fingerstick) 185 mg/dL (70-99) 234 mg/dL (70-99) White Blood Count 13.4 x10^3/uL (4.0-11.0) Red Blood Count 3.08 x10^6/uL (4.30-5.70) Hemoglobin 9.3 g/dL (13.0-17.5) Hematocrit 28.9 % (39.0-53.0) Mean Corpuscular Volume 94 fL (79-100) Mean Corpuscular Hemoglobin 30 pg (25-35) Mean Corpuscular Hemoglobin Concent 32 g/dL (31-37) Red Cell Distribution Width 15.1 % (11.5-14.5) Platelet Count 150 x10^3/uL (140-400) Heparin Anti-Xa Act, Unfractionated 0.37 IU/mL (0.30-0.70) Sodium Level 144 mmol/L (136-145) Potassium Level 5.0 mmol/L (3.5-5.1) Chloride Level 109 mmol/L (98-107) Carbon Dioxide Level 30 mmol/L (21-32) Anion Gap 5 (6-14) Blood Urea Nitrogen 75 mg/dL (8-26) Creatinine 2.1 mg/dL (0.7-1.3) Estimated GFR (Cockcroft-Gault) 38.1 Glucose Level 212 mg/dL (70-99) Calcium Level 7.8 mg/dL (8.5-10.1) O2 Saturation 93 % (92-99) Arterial Blood pH 7.34 (7.35-7.45) Arterial Blood pCO2 at Patient Temp 49 mmHg (35-46) Arterial Blood pO2 at Patient Temp 72 mmHg (65-108) Arterial Blood HCO3 26 mmol/L (21-28) Arterial Blood Base Excess -1 mmol/L (-3-3) FiO2 100 Test 12/13/19 13:05 Glucose (Fingerstick) 121 mg/dL (70-99) Microbiology 12/01/19 Urine Culture - Final, Complete Medications Current Medications Ondansetron HCl (Zofran) 4 mg 1X ONCE IV Last administered on 11/28/19at 16:25; Start 11/28/19 at 15:30; Stop 11/28/19 at 15:36; Status DC Acetaminophen (Tylenol) 1,000 mg 1X ONCE PO Last administered on 11/28/19at 16:25; Start 11/28/19 at 15:45; Stop 11/28/19 at 16:03; Status DC Acetaminophen (Tylenol) 650 mg PRN Q6HRS PRN PO Headaches, Temp > 101.5' Last administered on 11/30/19at 08:45; Start 11/28/19 at 17:45 Lorazepam (Ativan Inj) 0.5 mg PRN Q6HRS PRN IVP ANXIETY / AGITATION Last administered on 12/06/19at 22:50; Start 11/28/19 at 17:45 Ondansetron HCl (Zofran) 4 mg PRN Q6HRS PRN IVP NAUSEA/VOMITING; Start 11/28/19 at 17:45 Famotidine (Pepcid Vial) 20 mg BID IVP Last administered on 12/03/19at 07:48; S tart 11/28/19 at 21:00; Stop 12/03/19 at 15:24; Status DC Info (Icu Electrolyte Protocol) 1 ea DAILY MC ; Start 11/29/19 at 09:00; Stop 11/28/19 at 18:16; Status DC Enoxaparin Sodium (Lovenox 40mg Syringe) 150 mg Q12HR SQ ; Start 11/28/19 at 21:00; Stop 11/28/19 at 18:16; Status DC Sodium Chloride (Normal Saline Flush) 3 ml QSHIFT PRN IV AFTER MEDS AND BLOOD DRAWS; Start 11/28/19 at 17:45 Acetaminophen/ Hydrocodone Bitart (Lortab 5/325) 1 tab PRN Q4HRS PRN PO MILD PAIN, 2ND CHOICE; Start 11/28/19 at 17:45 Morphine Sulfate (Morphine Sulfate) 1 mg PRN Q1HR PRN IV PAIN; Start 11/28/19 at 17:45; Stop 12/10/19 at 01:00; Status DC Senna/Docusate Sodium (Senna Plus) 1 tab BID PO Last administered on 12/13/19at 10:10; Start 11/28/19 at 21:00 Lactulose (Lactulose) 20 gm PRN Q12HR PRN PO CONSTIPATION; Start 11/28/19 at 17:45 Amlodipine Besylate (Norvasc) 5 mg DAILY PO Last administered on 12/03/19at 07:49; Start 11/29/19 at 09:00; Stop 12/04/19 at 00:25; Status DC Aspirin (Aspirin Chewable) 81 mg DAILY PO Last administered on 12/13/19at 10:10; Start 11/29/19 at 09:00 Furosemide (Lasix) 20 mg DAILY PO Last administered on 12/01/19at 08:19; Start 11/29/19 at 09:00; Stop 12/01/19 at 12:52; Status DC Glipizide (Glucotrol) 2.5 mg DAILY PO Last administered on 11/30/19at 08:44; Start 11/29/19 at 09:00; Stop 12/01/19 at 08:12; Status DC Acetaminophen/ Hydrocodone Bitart (Lortab 5/325) 1 tab PRN Q6HRS PRN PO PAIN; Start 11/28/19 at 17:45; Status UNV Lisinopril (Prinivil) 40 mg DAILY PO Last administered on 12/01/19at 08:19; Start 11/29/19 at 09:00; Stop 12/01/19 at 12:52; Status DC Tamsulosin HCl (Flomax) 0.4 mg DAILY PO Last administered on 12/13/19at 10:10; Start 11/29/19 at 09:00 Hydrochlorothiazide (Hydrodiuril) 25 mg DAILY PO Last administered on 12/01/19at 08:17; Start 11/29/19 at 09:00; Stop 12/01/19 at 12:52; Status DC Cyclobenzaprine HCl (Flexeril) 10 mg TID PO Last administered on 11/30/19at 22:16; Start 11/28/19 at 21:00; Stop 12/02/19 at 06:46; Status DC Magnesium Sulfate 50 ml @ 25 mls/hr 1X ONCE IV Last administered on 11/28/19at 19:10; Start 11/28/19 at 19:00; Stop 11/28/19 at 20:59; Status DC Zinc Sulfate (Orazinc) 220 mg DAILY PO Last administered on 12/13/19at 10:10; Start 11/29/19 at 09:00 Ascorbic Acid (Vitamin C) 500 mg Q6HRS PO Last administered on 12/04/19at 11:48; Start 11/29/19 at 00:00; Stop 12/04/19 at 14:58; Status DC Vitamin D (Vitamin D3) 1,000 unit BID PO Last administered on 12/13/19at 10:10; Start 11/28/19 at 21:00 Atorvastatin Calcium (Lipitor) 40 mg QHS PO Last administered on 12/12/19at 21:15; Start 11/28/19 at 21:00 Enoxaparin Sodium (Lovenox 80mg Syringe) 80 mg 1X ONCE SQ Last administered on 11/28/19at 19:10; Start 11/28/19 at 19:00; Stop 11/28/19 at 19:01; Status DC Enoxaparin Sodium (Lovenox 40mg Syringe) 40 mg Q12HR SQ Last administered on 11/29/19at 20:52; Start 11/29/19 at 09:00; Stop 11/30/19 at 10:00; Status DC Thiamine HCl 200 mg/Dextrose 52 ml @ 102 mls/hr Q12HR IV Last administered on 12/04/19at 09:23; Start 11/28/19 at 19:30; Stop 12/04/19 at 14:59; Status DC Potassium Chloride (Klor-Con) 40 meq 1X ONCE PO Last administered on 11/29/19at 17:15; Start 11/29/19 at 16:45; Stop 11/29/19 at 16:46; Status DC Methylprednisolone Sodium Succinate (SOLU-Medrol 125MG VIAL) 60 mg Q8HRS IV Last administered on 12/03/19at 05:38; Start 11/30/19 at 09:00; Stop 12/03/19 at 10:50; Status DC Piperacillin Sod/ Tazobactam Sod (Zosyn Per Pharmacy) 1 each PRN DAILY PRN MC SEE COMMENTS; Start 11/30/19 at 08:45; Stop 12/10/19 at 17:04; Status DC Piperacillin Sod/ Tazobactam Sod 3.375 gm/Sodium Chloride 50 ml @ 100 mls/hr Q6HRS IV Last administered on 12/10/19at 12:07; Start 11/30/19 at 12:00; Stop 12/10/19 at 17:03; Status DC Heparin Sodium (Porcine) (Heparin Sodium) 5,000 unit Q8HRS SQ Last administered on 12/07/19at 06:09; Start 11/30/19 at 14:00; Stop 12/07/19 at 11:13; Status DC Sterile Water (WATER for RESP) 1,000 ml CONT PRN INH VIA VAPOTHERM DEVICE Last administered on 12/07/19at 15:37; Start 11/30/19 at 17:30 Insulin Glargine (Lantus Syringe) 20 unit BID SQ Last administered on 12/01/19at 12:30; Start 12/01/19 at 12:30; Stop 12/01/19 at 17:33; Status DC Insulin Human Lispro (HumaLOG) 0-9 UNITS TIDWMEALS SQ Last administered on 12/01/19at 17:33; Start 12/01/19 at 12:30; Stop 12/01/19 at 21:03; Status DC Dextrose (Dextrose 50%-Water Syringe) 12.5 gm PRN Q15MIN PRN IV SEE COMMENTS; Start 12/01/19 at 12:15 Sodium Chloride 1,000 ml @ 75 mls/hr 1X ONCE IV Last administered on 12/01/19at 12:58; Start 12/01/19 at 13:00; Stop 12/02/19 at 02:19; Status DC Insulin Glargine (Lantus Syringe) 30 unit BID SQ Last administered on 12/13/19at 10:11; Start 12/01/19 at 21:00 Insulin Human Lispro (HumaLOG) 10 units TIDWMEALS SQ Last administered on 12/01/19at 17:49; Start 12/01/19 at 17:45; Stop 12/01/19 at 21:04; Status DC Insulin Human Lispro (HumaLOG) 0-9 UNITS QIDACHS SQ Last administered on 12/06/19at 21:35; Start 12/02/19 at 07:30; Stop 12/08/19 at 13:39; Status DC Insulin Human Lispro (HumaLOG) 15 units TIDWMEALS SQ Last administered on 12/06/19at 17:31; Start 12/02/19 at 08:00; Stop 12/08/19 at 13:39; Status DC Insulin Human Lispro (HumaLOG) 9 units 1X ONCE SQ Last administered on 12/01/19at 21:16; Start 12/01/19 at 21:30; Stop 12/01/19 at 21:31; Status DC Cyclobenzaprine HCl (Flexeril) 10 mg PRN TID PRN PO MUSCLE SPASMS Last administered on 12/06/19at 20:16; Start 12/02/19 at 06:45 Furosemide (Lasix) 20 mg 1X ONCE IVP ; Start 12/02/19 at 10:15; Stop 12/02/19 at 10:47; Status DC Furosemide (Lasix) 40 mg 1X ONCE IVP Last administered on 12/02/19at 11:09; Start 12/02/19 at 10:45; Stop 12/02/19 at 10:51; Status DC Sodium Chloride 1,000 ml @ 75 mls/hr [id number] IV Last administered on 12/07/19at 23:32; Start 12/02/19 at 14:30; Stop 12/08/19 at 14:44; Status DC Lactobacillus Rhamnosus (Culturelle) 1 cap BID PO Last administered on 12/13/19at 10:10; Start 12/02/19 at 21:00 Methylprednisolone Sodium Succinate (SOLU-Medrol 40MG VIAL) 40 mg Q8HRS IV Last administered on 12/13/19at 05:33; Start 12/03/19 at 14:00 Famotidine (Pepcid Vial) 20 mg DAILY IVP Last administered on 12/13/19at 10:11; Start 12/04/19 at 09:00 Amlodipine Besylate (Norvasc) 10 mg DAILY PO Last administered on 12/06/19at 07:58; Start 12/04/19 at 09:00; Stop 12/06/19 at 18:39; Status DC Hydralazine HCl (Apresoline Inj) 10 mg PRN Q15MIN PRN IVP ELEVATED BP, SEE COMMENTS Last administered on 12/06/19at 10:41; Start 12/04/19 at 00:30; Stop 12/06/19 at 15:23; Status DC Ascorbic Acid (Vitamin C) 500 mg BID PO Last administered on 12/13/19at 10:10; Start 12/04/19 at 21:00 Thiamine Mononitrate (Vitamin B-1) 100 mg BID PO Last administered on 12/13/19at 10:10; Start 12/04/19 at 21:00 Furosemide (Lasix) 40 mg 1X ONCE IVP Last administered on 12/05/19at 11:39; Start 12/05/19 at 11:15; Stop 12/05/19 at 11:16; Status DC Metoprolol Tartrate (Lopressor) 25 mg PRN BID PRN PO TACHYCARDIA; Start 12/05/19 at 22:30; Status Cancel Haloperidol Lactate (Haldol Inj) 2.5 mg PRN Q6HRS PRN IVP Anxiety (2ND CHOICE) Last administered on 12/07/19at 03:19; Start 12/06/19 at 10:45 Furosemide (Lasix) 40 mg 1X ONCE IVP Last administered on 12/06/19at 12:50; Start 12/06/19 at 12:30; Stop 12/06/19 at 12:31; Status DC Hydralazine HCl (Apresoline Inj) 20 mg PRN Q4HRS PRN IVP ELEVATED BP, SEE COMM ENTS Last administered on 12/12/19at 23:12; Start 12/06/19 at 15:30 Nicardipine HCl 50 mg/Sodium Chloride 250 ml @ 25 mls/hr CONT PRN IV SEE I/O RECORD Last administered on 12/10/19at 10:28; Start 12/06/19 at 18:45 Dexmedetomidine HCl 400 mcg/ Sodium Chloride 100 ml @ 7.23 mls/hr CONT PRN IV SEE COMMENTS Last administered on 12/07/19at 12:52; Start 12/07/19 at 07:30 Sodium Chloride 500 ml @ 500 mls/hr 1X PRN PRN IV SEE COMMENTS; Start 12/07/19 at 07:30; Stop 12/12/19 at 12:53; Status DC Atropine Sulfate (ATROPINE 0.5mg SYRINGE) 0.5 mg PRN Q5MIN PRN IV SEE COMMENTS; Start 12/07/19 at 07:30 Diltiazem HCl (Cardizem Iv Push) 10 mg 1X ONCE IVP Last administered on 12/07/19at 09:13; Start 12/07/19 at 09:00; Stop 12/07/19 at 09:01; Status DC Diltiazem HCl 125 mg/Sodium Chloride 125 ml @ 5 mls/hr CONT PRN IV SEE I/O RECORD Last administered on 12/07/19at 09:33; Start 12/07/19 at 09:00 Magnesium Sulfate 50 ml @ 25 mls/hr 1X ONCE IV Last administered on 12/07/19at 11:05; Start 12/07/19 at 09:45; Stop 12/07/19 at 11:44; Status DC Heparin Sodium/ Dextrose 250 ml @ 20 mls/hr CONT PRN IV PER PROTOCOL Last administered on 12/12/19at 20:15; Start 12/07/19 at 10:45 Heparin Sodium (Porcine) (Heparin Sodium) 4,350 unit PRN Q6HRS PRN IV FOR UFH LEVEL LESS THAN 0.2 Last administered on 12/10/19at 07:33; Start 12/07/19 at 10:45 Heparin Sodium (Porcine) (Heparin Sodium) 2,150 unit PRN Q6HRS PRN IV FOR UFH LEVEL 0.2 - 0.29 Last administered on 12/11/19at 06:29; Start 12/07/19 at 10:45 Fentanyl Citrate 30 ml @ 0 mls/hr CONT PRN IV SEE PROTOCOL; Start 12/07/19 at 19:45; Stop 12/07/19 at 21:23; Status DC Fentanyl Citrate (Fentanyl 2ml Vial) 25 mcg PRN Q1HR PRN IV SEE COMMENTS; Start 12/07/19 at 19:45 Fentanyl Citrate (Fentanyl 2ml Vial) 50 mcg PRN Q1HR PRN IV SEE COMMENTS; Start 12/07/19 at 19:45 Midazolam HCl 100 ml @ 0 mls/hr CONT PRN IV SEE PROTOCOL Last administered on 12/13/19at 09:41; Start 12/07/19 at 19:45 Propofol 100 ml @ 0 mls/hr CONT PRN IV SEE PROTOCOL Last administered on 12/13/19at 05:31; Start 12/07/19 at 20:00 Fentanyl Citrate 55 ml @ 0 mls/hr CONT PRN PRN IV PAIN/SEDATION Last administered on 12/13/19at 14:00; Start 12/07/19 at 21:30 Atropine Sulfate (ATROPINE 1mg SYRINGE) 1 mg STK-MED ONCE .ROUTE ; Start 12/08/19 at 09:07; Stop 12/08/19 at 09:07; Status DC Epinephrine HCl (EPINEPHrine SYRINGE) 1 mg 1X ONCE IV Last administered on 12/08/19at 08:19; Start 12/08/19 at 09:45; Stop 12/08/19 at 09:50; Status DC Non-Formulary Medication 1 ea/ Sodium Chloride 210 ml @ 210 mls/hr 1X ONCE IV Last administered on 12/08/19at 13:12; Start 12/08/19 at 12:00; Stop 12/08/19 at 12:59; Status DC Non-Formulary Medication 1 ea/ Sodium Chloride 230 ml @ 460 mls/hr Q24H IV Last administered on 12/12/19at 11:42; Start 12/09/19 at 12:00; Stop 12/12/19 at 12:29; Status DC Insulin Human Lispro (HumaLOG) 0-9 UNITS Q6HRS SQ Last administered on 12/13/19at 06:05; Start 12/08/19 at 18:00 Etomidate (Amidate) 20 mg STK-MED ONCE IV ; Start 12/07/19 at 12:00; Stop 12/09/19 at 08:48; Status DC Succinylcholine Chloride (Anectine) 200 mg STK-MED ONCE .ROUTE ; Start 12/07/19 at 12:00; Stop 12/09/19 at 08:49; Status DC Ephedrine Sulfate (ePHEDrine PF IN SALINE SYRINGE) 50 mg STK-MED ONCE IV ; Start 12/07/19 at 12:00; Stop 12/09/19 at 08:49; Status DC Phenylephrine HCl (PHENYLEPHRINE in 0.9% NACL PF) 1 mg STK-MED ONCE IV ; Start 12/07/19 at 12:00; Stop 12/09/19 at 08:49; Status DC Propofol (Diprivan) 200 mg STK-MED ONCE IV ; Start 12/07/19 at 12:00; Stop 12/09/19 at 08:49; Status DC Epinephrine HCl (EPINEPHrine SYRINGE) 2 mg STK-MED ONCE .ROUTE ; Start 12/08/19 at 09:30; Stop 12/09/19 at 09:05; Status DC Atropine Sulfate (ATROPINE 1mg SYRINGE) 1 mg STK-MED ONCE .ROUTE ; Start at 09:30; Stop 12/09/19 at 09:05; Status DC Info (Anti-Coagulation Monitoring By Pharmacy) 1 each PRN DAILY PRN MC SEE COMMENTS Last administered on 12/13/19at 13:41; Start 12/09/19 at 13:00 Furosemide (Lasix) 40 mg 1X ONCE IVP Last administered on 12/09/19at 14:30; Start 12/09/19 at 14:30; Stop 12/09/19 at 14:31; Status DC Vecuronium [place] 50 mg/ Miscellaneous 50 ml @ 7.598 mls/ hr CONT PRN IV SEE I/O RECORD Last administered on 12/13/19at 02:21; Start 12/10/19 at 21:00 Vecuronium [place] (Norcuron Bolus) 8 mg PRN Q2HR PRN IV SEDATION Last administered on 12/12/19at 00:59; Start 12/10/19 at 21:00 Sodium Chloride 500 ml @ 999 mls/hr Q31M IV Last administered on 12/12/19at 11:31; Start 12/12/19 at 11:00; Stop 12/12/19 at 12:53; Status DC Lidocaine HCl (Buffered Lidocaine 1%) 3 ml STK-MED ONCE .ROUTE ; Start 12/12/19 at 11:36; Stop 12/12/19 at 11:37; Status DC Lidocaine HCl (Buffered Lidocaine 1%) 3 ml 1X ONCE INJ Last administered on 12/12/19at 12:45; Start 12/12/19 at 12:45; Stop 12/12/19 at 12:49; Status DC Active Scripts Active [place] 5-325 Tablet (Acetaminophen/Hydrocodone Bitart) 1 Each Tablet 1 Tab PO PRN Q6HRS PRN Orphenadrine Citrate 100 Mg Tablet.er 1 Tab PO BID Amlodipine Besylate 5 Mg Tablet 5 Mg PO DAILY Reported Lisinopril 40 Mg Tablet 40 Mg PO DAILY Glipizide 5 Mg Tablet 2.5 Mg PO DAILY Hydrochlorothiazide Tablet (Hydrochlorothiazide) 12.5 Mg Tablet 25 Mg PO DAILY Furosemide 20 Mg Tablet 20 Mg PO DAILY Tamsulosin Hcl 0.4 Mg Cap.er.24h 1 Cap PO DAILY Aspirin 81 Mg Tab.chew 81 Mg PO DAILY Metformin Hcl 500 Mg Tablet 500 Mg PO DAILY Vitals/I & O Vital Sign - Last 24 Hours 12/12/19 12/12/19 12/12/19 12/12/19 15:00 15:38 16:00 16:00 Temp 96.3 96.1 96.3 96.1 Pulse 56 58 Resp 24 24 B/P (MAP) 140/54 (82) 136/54 (81) Pulse Ox 98 98 96 O2 Delivery Ventilator Ventilator Mechanical Ventilator Ventilator 12/12/19 12/12/19 12/12/19 12/12/19 16:00 17:00 18:00 19:00 Temp 96.1 96.1 96.4 96.1 96.1 96.4 Pulse 54 60 65 Resp 24 24 B/P (MAP) 186/67 (106) 138/56 (83) 143/54 (83) 148/53 (84) Pulse Ox 95 96 94 O2 Delivery Ventilator Ventilator Ventilator 12/12/19 12/12/19 12/12/19 12/12/19 19:51 20:00 20:30 20:30 Temp 96.4 96.4 Pulse 62 Resp 24 B/P (MAP) 140/54 (82) Pulse Ox 96 96 O2 Delivery Ventilator Ventilator Mechanical Ventilator 12/12/19 12/12/19 12/12/19 12/12/19 21:00 22:00 23:00 23:12 Temp 96.4 96.4 96.4 96.4 96.4 96.4 Pulse 62 62 56 60 Resp 24 24 24 B/P (MAP) 160/58 (92) 158/58 (91) 180/64 (102) 185/68 Pulse Ox 97 97 96 O2 Delivery Ventilator Ventilator Ventilator 12/13/19 12/13/19 12/13/19 12/13/19 00:00 00:10 00:10 00:33 Temp 96.3 96.3 Pulse 69 Resp 24 B/P (MAP) 161/50 (87) 148/52 (84) Pulse Ox 97 97 O2 Delivery Ventilator Mechanical Ventilator Ventilator 12/13/19 12/13/19 12/13/19 12/13/19 01:00 02:00 03:00 04:00 Temp 96.2 96.1 96.4 98.1 96.2 96.1 96.4 98.1 Pulse 74 76 78 81 Resp 24 24 24 24 B/P (MAP) 185/56 (99) 181/56 (97) 146/50 (82) 106/44 (64) Pulse Ox 97 95 95 96 O2 Delivery Ventilator Ventilator Ventilator Ventilator 12/13/19 12/13/19 12/13/19 12/13/19 04:30 04:30 04:39 05:00 Temp 98.2 98.2 Pulse 81 Resp 24 B/P (MAP) 108/46 (66) 112/46 (68) Pulse Ox 95 97 O2 Delivery Mechanical Ventilator Ventilator Ventilator 12/13/19 12/13/19 12/13/19 12/13/19 06:00 07:00 08:00 08:00 Temp 97.9 97.2 96.8 97.9 97.2 96.8 Pulse 73 66 60 Resp 24 24 24 B/P (MAP) 120/49 (72) 122/50 (74) 118/48 (71) Pulse Ox 99 98 98 O2 Delivery Ventilator Ventilator Ventilator 12/13/19 12/13/19 12/13/19 12/13/19 08:00 08:30 09:00 10:00 Temp 96.8 96.4 96.8 96.4 Pulse 54 52 Resp 24 24 B/P (MAP) 128/52 (77) 134/54 (80) Pulse Ox 98 97 98 O2 Delivery Mechanical Ventilator Ventilator Ventilator Ventilator 12/13/19 12/13/19 12/13/19 12/13/19 11:00 12:00 12:00 12:00 Temp 96.4 96.1 96.4 96.1 Pulse 52 52 Resp 24 24 B/P (MAP) 160/64 (96) 162/68 (99) Pulse Ox 100 100 O2 Delivery Ventilator Ventilator Mechanical Ventilator 12/13/19 12/13/19 12/13/19 12:01 13:00 14:00 Temp 96.4 96.4 Pulse 52 Resp 24 23 B/P (MAP) 158/64 (95) Pulse Ox 98 100 100 O2 Delivery Ventilator Ventilator Ventilator Intake and Output 12/12/19 12/12/19 12/13/19 15:00 23:00 07:00 Intake Total 1130 ml 1867.23 ml 1813 ml Output Total 250 ml 1325 ml 870 ml Balance 880 ml 542.23 ml 943 ml Justifications for Admission Other Justification ALE ROBERTSNO MD Dec 13, 2019 14:45
[2019-12-13] MEDS: ATORVASTATIN CALCIUM 40 MG TABLET. PO SCH (21:26)
[2019-12-13] MEDS: HEPARIN 25,000UTS/250ML PREMIX 250 ML IV PRN (22:25)
[2019-12-14] VITALS (23 sets, daily range): BP systolic 142–186; BP diastolic 55–68
[2019-12-14] MEDS: fentaNYL HIGH DOSE PCA 55 ML IV PRN ×2 (03:31→17:00)
[2019-12-14] MEDS: PROPOFOL 100 ML IV PRN ×2 (05:12→17:17)
[2019-12-14] MEDS: methylPREDNISolone SOD SUCC PF 40 MG/ML VIAL. IV SCH ×3 (05:59→20:35)
[2019-12-14] MEDS: INSULIN LISPRO 300 UNITS/3 ML VIAL. SQ SCH ×4 (06:00→17:40)
[2019-12-14 07:36] LABS: HEMATOCRIT 29.7 % (39.0-53.0); HEMOGLOBIN 9.3 g/dL (13.0-17.5); RED BLOOD COUNT 3.17 x10^6/uL (4.30-5.70); RED CELL DISTRIBUTION WIDTH 14.8 % (11.5-14.5); WHITE BLOOD COUNT 12.8 x10^3/uL (4.0-11.0)
[2019-12-14 07:52] LABS: CALCIUM 8.4 mg/dL (8.5-10.1); CREATININE 1.6 mg/dL (0.7-1.3); GFR 52.1
[2019-12-14 07:55] LABS: POTASSIUM 5.3 mmol/L (3.5-5.1)
[2019-12-14] MEDS: MIDAZOLAM 100mg/100ml NS BAG 100 ML IV PRN ×2 (08:25→18:37)
[2019-12-14] MEDS: THIAMINE 100 MG TABLET. PO SCH ×2 (08:26→20:34)
[2019-12-14] MEDS: LACTULOSE 20 GM/30 ML SOLUTION. PO PRN (08:26)
[2019-12-14] MEDS: CHOLECALCIFEROL (VITAMIN D3) 1,000 UNIT TABLET PO SCH ×2 (08:26→20:34)
[2019-12-14] MEDS: SENNOSIDES/DOCUSATE 8.6/50MG TABLET. PO SCH ×2 (08:26→20:34)
[2019-12-14] MEDS: LACTOBACILLUS RHAMNOSUS GG 1 CAPSULE. PO SCH ×2 (08:26→20:34)
[2019-12-14] MEDS: FAMOTIDINE 20 MG/2 ML VIAL IVP SCH (08:26)
[2019-12-14] MEDS: ZINC SULFATE 220 MG CAPSULE. PO SCH (08:26)
[2019-12-14] MEDS: ASPIRIN CHEWABLE 81 MG TABLET. PO SCH (08:26)
[2019-12-14] MEDS: ASCORBIC ACID 500 MG TABLET PO SCH ×2 (08:27→20:34)
[2019-12-14] MEDS: TAMSULOSIN 0.4 MG CAP.ER.24H. PO SCH (08:27)
[2019-12-14 08:31] LABS: BASE EXCESS ABG 2 mmol/L (-3-3); HCO3 ABG 27 mmol/L (21-28); PCO2 ABG 43 mmHg (35-46); PO2 ABG 66 mmHg (65-108); SAT O2 ABG 92 % (92-99)
[2019-12-14 08:33] LABS: FIO2 ABG 90
[2019-12-14] MEDS: INSULIN GLARGINE SYRINGE. SQ SCH ×2 (09:00→20:34)
--- NOTE | 2019-12-14 10:12 | PDOC ---
[employer] PROGRESS NOTE Date of Service DOS: DATE: 12/14/19 TIME: 10:10 Chief Complaint Chief Complaint COVID 19 infection/ viral sepsis acute hypoxemic respiratory distress due to the above. Acute renal failure due to vasomotor nephropathy normocytic anemia Diabetes-Type II High Cholesterol Hypertension Severe protein calorie malnutrition History of Present Illness History of Present Illness 12/14/2019 Patient seen in the [place] [id number] ICU Remains intubated AC/24/600 with 90% FiO2 and 10 of PEEP Discussed with RN Patient having some coffee-ground emesis I consulted GI awaiting their input Currently sedated with Versed fentanyl and propofol He also has a heparin drip He remains critically ill 12/13/2019 Patient seen and examined in the [place] [id number] ICU He remains intubated Assist-control/24/6 100/90% with 10 of PEEP He has OG in place He is sedated with Versed fentanyl and propofol He also has a heparin drip Chart reviewed Discussed with RN He remains extremely critically ill we are concerned he may not survive 12/12/2019 Patient seen in ICU [place] [id number] unit He remains intubated and mechanically ventilated AC/24/6 100/100% with 10 of PEEP He is sedated with propofol Versed and fentanyl I discussed the case with the case briefer discussed with RNs as well Chart reviewed He remains very critically ill as he is on 100% oxygen 12/11/2019 Patient seen and examined once again in the [place] [id number] ICU He is intubated Assist-control/24/6 100/100% with 9 of PEEP He has OG feeds running at 60 cc an hour He is on a heparin drip He is fentanyl and Versed for sedation Discussed with the case briefer Discussed with RN Chart reviewed He remains critically ill 12-10-2019 Patient seen and examined in the [place] [address] ICU He is still intubated He is back on 100% FiO2 AC/24/6 100/100% with 10 of PEEP I discussed the case with the case briefer I spoke with his son Jayden yesterday by phone for quite some time Chart reviewed 12-09-2019 Patient seen and examined in the [place] [id number] ICU He remains intubated Assist-control/24/6 100/90% with 7 of PEEP He is sedated with Versed propofol He is also on a heparin drip Also has fentanyl IV Discussed with case management Discussed with RN Chart reviewed I tried to call the family but no answer I left a voicemail Plan is to [facility] today if possible Mr Olvera is a 69yo M w/ PMHx Diabetes-Type II, High Cholesterol, Hypertension who was in his usual state of health until 2 days prior ot his admission when he was evaluated at [facility] and found to be positive for COVID 19 virus, patient was discharged and given instructions to follow up in the nearest medical center would his symptoms worsen, Today he felt worse and more dyspneic reason why he came to the ER, he initially requiring 1 liter of oxygen 11/28: Febrile 101 3 F overnight. Procalcitonin elevated, INR 1.4, WBC 9.1, Hb 11.9, platelets 189, NA 137, K3.4, BUN 39, CR 2.8, glucose 240. He is short of breath with cough. He is insistent he does not wish for convalescent FFP if his O2 needs continues to increase. Now on 4L NCO2. 11/29: Febrile to 101.5 F overnight. Creatinine increased to 4.1, he still very short of breath worsening cough, increased from 6 L nasal cannula overnight to 15 L nonrebreather facemask. I discussed with pulmonology to transferred out of the ICU. I have asked the patient to reconsider convalesce and FFP and will discuss with his family. 11/30: No acute events reported overnight, case discussed with nursing staff patient in no acute distress no complaints during my visit seems to be toleratin g Vapotherm well hopefully he will be able to continue with improving, encourage proning position if tolerated 12/01: No acute events reported overnight, case discussed with nursing staff patient in no acute distress no complaints during my visit, given update patient's over the phone reassurance has been provided no new complaints seems to be status quo. Encourage more activity as tolerated in prone positioning 12/02: Discussed with nursing staff, no acute events overnight. Breathing well on Vapotherm. Continue ICU monitoring. 12/03: Patient with O2 desaturation overnight. Breathing more comfortably upright position. Currently breathing on 40 L of high flow nasal cannula with 100% O2 saturation 12/07 : PLACED ON VENT OVER NIGHT, inc resp distress Vitals/I&O Vitals/I&O: Vital Signs Date Time Temp Pulse Resp B/P (MAP) Pulse Ox O2 Delivery O2 Flow Rate FiO2 12/14/19 10:00 96.8 49 24 160/63 (95) 98 Ventilator 96.8 12/14/19 04:01 35.0 I & O 12/13/19 12/13/19 12/14/19 14:59 22:59 06:59 Intake Total 520 ml 605 ml 372 ml Output Total 825 ml 730 ml 705 ml Balance -305 ml -125 ml -333 ml Physical Exam Physical Exam: sedated on vent General: mild distress, Other Heart: Regular rate, Normal S1, Normal S2 Lungs: Crackles Abdomen: Normal bowel sounds, Soft Extremities: No clubbing, No cyanosis Skin: No rashes, No breakdown Labs Labs: Laboratory Tests Test 12/13/19 13:05 12/13/19 17:51 12/13/19 21:56 12/13/19 23:39 Glucose (Fingerstick) 121 mg/dL (70-99) 110 mg/dL (70-99) 108 mg/dL (70-99) 92 mg/dL (70-99) Test 12/14/19 05:20 12/14/19 06:22 12/14/19 08:27 White Blood Count 12.8 x10^3/uL (4.0-11.0) Red Blood Count 3.17 x10^6/uL (4.30-5.70) Hemoglobin 9.3 g/dL (13.0-17.5) Hematocrit 29.7 % (39.0-53.0) Mean Corpuscular Volume 94 fL (79-100) Mean Corpuscular Hemoglobin 29 pg (25-35) Mean Corpuscular Hemoglobin Concent 31 g/dL (31-37) Red Cell Distribution Width 14.8 % (11.5-14.5) Platelet Count 147 x10^3/uL (140-400) Heparin Anti-Xa Act, Unfractionated 0.41 IU/mL (0.30-0.70) Sodium Level 147 mmol/L (136-145) Potassium Level 5.3 mmol/L (3.5-5.1) Chloride Level 112 mmol/L (98-107) Carbon Dioxide Level 28 mmol/L (21-32) Anion Gap 7 (6-14) Blood Urea Nitrogen 69 mg/dL (8-26) Creatinine 1.6 mg/dL (0.7-1.3) Estimated GFR (Cockcroft-Gault) 52.1 Glucose Level 102 mg/dL (70-99) Calcium Level 8.4 mg/dL (8.5-10.1) Glucose (Fingerstick) 95 mg/dL (70-99) O2 Saturation 92 % (92-99) Arterial Blood pH 7.42 (7.35-7.45) Arterial Blood pCO2 at Patient Temp 43 mmHg (35-46) Arterial Blood pO2 at Patient Temp 66 mmHg (65-108) Arterial Blood HCO3 27 mmol/L (21-28) Arterial Blood Base Excess 2 mmol/L (-3-3) FiO2 90 Assessment and Plan Assessmemt and Plan Problems Medical Problems: (1) ARF (acute renal failure) Status: Acute (2) Fever Status: Acute (3) Hypoxemia Status: Acute (4) Sepsis Status: Acute COVID 19 infection/ viral sepsis acute hypoxemic respiratory distress due to the above. Acute renal failure due to vasomotor nephropathy normocytic anemia Diabetes-Type II High Cholesterol Hypertension Severe protein calorie malnutrition Possible GI bleed Plan COVID 19 protocol including antibiotics vitamins with minerals convalescent plasma steroids ICU monitoring Consult GI Holding his OG feeds for now Trend labs Respiratory isolation Vent weaning Home meds DVT prophylaxis Continue her heparin drip Fentanyl and propofol for sedation Prognosis very guarded at best 31 minutes cc time Comment Review of Relevant I have reviewed the following items bren (where applicable) has been applied. Justifications for Admission Other Justification ANGELICA BUI III, DO Dec 14, 2019 10:12
--- NOTE | 2019-12-14 11:35 | PDOC ---
PULMONARY PROGRESS NOTES DATE: 12/14/19 TIME: 11:35 Subjective intubated 12/07 remains on AC mode,peep 10 fi02 90% on propofol versed fentanyl small ett secretion Vitals Vital Signs Date Time Temp Pulse Resp B/P (MAP) Pulse Ox O2 Delivery O2 Flow Rate FiO2 12/14/19 10:00 96.8 49 24 160/63 (95) 98 Ventilator 96.8 12/14/19 04:01 35.0 Comments visual exam done on vent sedated nc at rrr no accessory muscle use no paradoxical abd motion no rash +edema General: No acute distress Lungs: Crackles Labs Laboratory Tests Test 12/12/19 12:01 12/12/19 17:56 12/12/19 23:58 12/13/19 05:30 Glucose (Fingerstick) 148 mg/dL (70-99) 185 mg/dL (70-99) 234 mg/dL (70-99) White Blood Count 13.4 x10^3/uL (4.0-11.0) Red Blood Count 3.08 x10^6/uL (4.30-5.70) Hemoglobin 9.3 g/dL (13.0-17.5) Hematocrit 28.9 % (39.0-53.0) Mean Corpuscular Volume 94 fL (79-100) Mean Corpuscular Hemoglobin 30 pg (25-35) Mean Corpuscular Hemoglobin Concent 32 g/dL (31-37) Red Cell Distribution Width 15.1 % (11.5-14.5) Platelet Count 150 x10^3/uL (140-400) Heparin Anti-Xa Act, Unfractionated 0.37 IU/mL (0.30-0.70) Sodium Level 144 mmol/L (136-145) Potassium Level 5.0 mmol/L (3.5-5.1) Chloride Level 109 mmol/L (98-107) Carbon Dioxide Level 30 mmol/L (21-32) Anion Gap 5 (6-14) Blood Urea Nitrogen 75 mg/dL (8-26) Creatinine 2.1 mg/dL (0.7-1.3) Estimated GFR (Cockcroft-Gault) 38.1 Glucose Level 212 mg/dL (70-99) Calcium Level 7.8 mg/dL (8.5-10.1) Test 12/13/19 08:40 12/13/19 13:05 12/13/19 17:51 12/13/19 21:56 O2 Saturation 93 % (92-99) Arterial Blood pH 7.34 (7.35-7.45) Arterial Blood pCO2 at Patient Temp 49 mmHg (35-46) Arterial Blood pO2 at Patient Temp 72 mmHg (65-108) Arterial Blood HCO3 26 mmol/L (21-28) Arterial Blood Base Excess -1 mmol/L (-3-3) FiO2 100 Glucose (Fingerstick) 121 mg/dL (70-99) 110 mg/dL (70-99) 108 mg/dL (70-99) Test 12/13/19 23:39 12/14/19 05:20 12/14/19 06:22 12/14/19 08:27 Glucose (Fingerstick) 92 mg/dL (70-99) 95 mg/dL (70-99) White Blood Count 12.8 x10^3/uL (4.0-11.0) Red Blood Count 3.17 x10^6/uL (4.30-5.70) Hemoglobin 9.3 g/dL (13.0-17.5) Hematocrit 29.7 % (39.0-53.0) Mean Corpuscular Volume 94 fL (79-100) Mean Corpuscular Hemoglobin 29 pg (25-35) Mean Corpuscular Hemoglobin Concent 31 g/dL (31-37) Red Cell Distribution Width 14.8 % (11.5-14.5) Platelet Count 147 x10^3/uL (140-400) Heparin Anti-Xa Act, Unfractionated 0.41 IU/mL (0.30-0.70) Sodium Level 147 mmol/L (136-145) Potassium Level 5.3 mmol/L (3.5-5.1) Chloride Level 112 mmol/L (98-107) Carbon Dioxide Level 28 mmol/L (21-32) Anion Gap 7 (6-14) Blood Urea Nitrogen 69 mg/dL (8-26) Creatinine 1.6 mg/dL (0.7-1.3) Estimated GFR (Cockcroft-Gault) 52.1 Glucose Level 102 mg/dL (70-99) Calcium Level 8.4 mg/dL (8.5-10.1) O2 Saturation 92 % (92-99) Arterial Blood pH 7.42 (7.35-7.45) Arterial Blood pCO2 at Patient Temp 43 mmHg (35-46) Arterial Blood pO2 at Patient Temp 66 mmHg (65-108) Arterial Blood HCO3 27 mmol/L (21-28) Arterial Blood Base Excess 2 mmol/L (-3-3) FiO2 90 Laboratory Tests Test 12/13/19 13:05 12/13/19 17:51 12/13/19 21:56 12/13/19 23:39 Glucose (Fingerstick) 121 mg/dL (70-99) 110 mg/dL (70-99) 108 mg/dL (70-99) 92 mg/dL (70-99) Test 12/14/19 05:20 12/14/19 06:22 12/14/19 08:27 White Blood Count 12.8 x10^3/uL (4.0-11.0) Red Blood Count 3.17 x10^6/uL (4.30-5.70) Hemoglobin 9.3 g/dL (13.0-17.5) Hematocrit 29.7 % (39.0-53.0) Mean Corpuscular Volume 94 fL (79-100) Mean Corpuscular Hemoglobin 29 pg (25-35) Mean Corpuscular Hemoglobin Concent 31 g/dL (31-37) Red Cell Distribution Width 14.8 % (11.5-14.5) Platelet Count 147 x10^3/uL (140-400) Heparin Anti-Xa Act, Unfractionated 0.41 IU/mL (0.30-0.70) Sodium Level 147 mmol/L (136-145) Potassium Level 5.3 mmol/L (3.5-5.1) Chloride Level 112 mmol/L (98-107) Carbon Dioxide Level 28 mmol/L (21-32) Anion Gap 7 (6-14) Blood Urea Nitrogen 69 mg/dL (8-26) Creatinine 1.6 mg/dL (0.7-1.3) Estimated GFR (Cockcroft-Gault) 52.1 Glucose Level 102 mg/dL (70-99) Calcium Level 8.4 mg/dL (8.5-10.1) Glucose (Fingerstick) 95 mg/dL (70-99) O2 Saturation 92 % (92-99) Arterial Blood pH 7.42 (7.35-7.45) Arterial Blood pCO2 at Patient Temp 43 mmHg (35-46) Arterial Blood pO2 at Patient Temp 66 mmHg (65-108) Arterial Blood HCO3 27 mmol/L (21-28) Arterial Blood Base Excess 2 mmol/L (-3-3) FiO2 90 Medications Active Scripts Medications Dose Route/Sig Max Daily Dose Days Date Category [place] 5-325 Tablet (Acetaminophen/Hydrocodone Bitart) 1 Each Tablet 1 Tab PO PRN Q6HRS PRN 03/20/18 Rx Orphenadrine Citrate 100 Mg Tablet.er 1 Tab PO BID 03/20/18 Rx Amlodipine Besylate 5 Mg Tablet 5 Mg PO DAILY 02/20/17 Rx Lisinopril 40 Mg Tablet 40 Mg PO DAILY 02/18/17 Reported Glipizide 5 Mg Tablet 2.5 Mg PO DAILY 02/18/17 Reported Hydrochlorothiazide Tablet (Hydrochlorothiazide) 12.5 Mg Tablet 25 Mg PO DAILY 02/18/17 Reported Furosemide 20 Mg Tablet 20 Mg PO DAILY 02/18/17 Reported Tamsulosin Hcl 0.4 Mg Cap.er.24h 1 Cap PO DAILY 02/18/17 Reported Aspirin 81 Mg Tab.chew 81 Mg PO DAILY 02/18/17 Reported Metformin Hcl 500 Mg Tablet 500 Mg PO DAILY 02/18/17 Reported Comments CXR reviewed Right IJ dialysis catheter is identified with the distal tip projecting over the right atrium. No pneumothorax. Increased patchy interstitial and alveolar airspace disease suggestive of worsening pulmonary edema. Impression . 1. Acute hypoxic respiratory failure secondary to COVID-19 pneumonia/acute lung injury/ acute respiratory distress syndrome. 2. Abnormal chest x-ray with bilateral interstitial infiltrates, COVID-19 pneumonia.-- 3. No significant tobacco history. 4. Acute kidney injury on top of CKD , improving 5. Severe protein-calorie malnutrition. 6. Abnormal D-dimer, likely related to COVID pneumonia. 7. New onset A. fib with rapid ventricular response, controlled Plan . Intubated 12/07 for increasing shortness of air and decrease saturation cont AC mode, setting reviewed, titrate fio2 to keep sat >94% Remdesivir 12/07 Follow cardiology input for new onset A. fib, resolved now lasix prn bun cr improving no need for HD Continue steroids with taper for COVID-19 pneumonia, will need total of 10 days empiric antibiotics Follow renal recommendations, S/P plasma D-dimers elevated secondary to, patient on full dose hep (for A-fib) Pt accepted at [facility] but not stable for transfer DVT/GI PPX - D/W RN and RT critically ill TOTAL CRITICAL CARE TIME: 30 minutes. no overlap SRINI RODRIGUEZ MD Dec 14, 2019 11:35
--- NOTE | 2019-12-14 13:38 | PDOC2 ---
CONSULT Date of Consult Date of Consult DATE: 12/14/19 TIME: 13:36 Reason for Consult Reason for Consult: Coffee ground emesis Past Medical History Cardiovascular: HTN, Hyperlipidemia Pulmonary: Other CENTRAL NERVOUS SYSTEM: Other GI: No pertinent hx Heme/Onc: No pertinent hx Hepatobiliary: No pertinent hx Psych: No pertinent hx Rheumatologic: No pertinent hx Infectious disease: No pertinent hx Renal/: Benign prostatic enlarg. Endocrine: Diabetes Past Surgical History Past Surgical History: Arthroscopy, Other Family History Family History: Coronary Artery Disease Social History No ALCOHOL: none Drugs: None Lives: with Family Current Problem List Problem List Problems Medical Problems: (1) ARF (acute renal failure) Status: Acute (2) Fever Status: Acute (3) Hypoxemia Status: Acute (4) Sepsis Status: Acute Current Medications Current Medications Current Medications Ondansetron HCl (Zofran) 4 mg 1X ONCE IV Last administered on 11/28/19at 16:25; Start 11/28/19 at 15:30; Stop 11/28/19 at 15:36; Status DC Acetaminophen (Tylenol) 1,000 mg 1X ONCE PO Last administered on 11/28/19at 16:25; Start 11/28/19 at 15:45; Stop 11/28/19 at 16:03; Status DC Acetaminophen (Tylenol) 650 mg PRN Q6HRS PRN PO Headaches, Temp > 101.5' Last administered on 11/30/19at 08:45; Start 11/28/19 at 17:45 Lorazepam (Ativan Inj) 0.5 mg PRN Q6HRS PRN IVP ANXIETY / AGITATION Last administered on 12/06/19at 22:50; Start 11/28/19 at 17:45 Ondansetron HCl (Zofran) 4 mg PRN Q6HRS PRN IVP NAUSEA/VOMITING; Start 11/28/19 at 17:45 Famotidine (Pepcid Vial) 20 mg BID IVP Last administered on 12/03/19at 07:48; Start 11/28/19 at 21:00; Stop 12/03/19 at 15:24; Status DC Info (Icu Electrolyte Protocol) 1 ea DAILY MC ; Start 11/29/19 at 09:00; Stop 11/28/19 at 18:16; Status DC Enoxaparin Sodium (Lovenox 40mg Syringe) 150 mg Q12HR SQ ; Start 11/28/19 at 21:00; Stop 11/28/19 at 18:16; Status DC Sodium Chloride (Normal Saline Flush) 3 ml QSHIFT PRN IV AFTER MEDS AND BLOOD DRAWS; Start 11/28/19 at 17:45 Acetaminophen/ Hydrocodone Bitart (Lortab 5/325) 1 tab PRN Q4HRS PRN PO MILD PAIN, 2ND CHOICE; Start 11/28/19 at 17:45 Morphine Sulfate (Morphine Sulfate) 1 mg PRN Q1HR PRN IV PAIN; Start 11/28/19 at 17:45; Stop 12/10/19 at 01:00; Status DC Senna/Docusate Sodium (Senna Plus) 1 tab BID PO Last administered on 12/14/19at 08:26; Start 11/28/19 at 21:00 Lactulose (Lactulose) 20 gm PRN Q12HR PRN PO CONSTIPATION Last administered on 12/14/19at 08:26; Start 11/28/19 at 17:45 Amlodipine Besylate (Norvasc) 5 mg DAILY PO Last administered on 12/03/19at 07:49; Start 11/29/19 at 09:00; Stop 12/04/19 at 00:25; Status DC Aspirin (Aspirin Chewable) 81 mg DAILY PO Last administered on 12/14/19at 08:26; Start 11/29/19 at 09:00 Furosemide (Lasix) 20 mg DAILY PO Last administered on 12/01/19at 08:19; Start 11/29/19 at 09:00; Stop 12/01/19 at 12:52; Status DC Glipizide (Glucotrol) 2.5 mg DAILY PO Last administered on 11/30/19at 08:44; Start 11/29/19 at 09:00; Stop 12/01/19 at 08:12; Status DC Acetaminophen/ Hydrocodone Bitart (Lortab 5/325) 1 tab PRN Q6HRS PRN PO PAIN; Start 11/28/19 at 17:45; Status UNV Lisinopril (Prinivil) 40 mg DAILY PO Last administered on 12/01/19at 08:19; Start 11/29/19 at 09:00; Stop 12/01/19 at 12:52; Status DC Tamsulosin HCl (Flomax) 0.4 mg DAILY PO Last administered on 12/14/19 08:27; S tart 11/29/19 at 09:00 Hydrochlorothiazide (Hydrodiuril) 25 mg DAILY PO Last administered on 12/01/19at 08:17; Start 11/29/19 at 09:00; Stop 12/01/19 at 12:52; Status DC Cyclobenzaprine HCl (Flexeril) 10 mg TID PO Last administered on 11/30/19at 22:16; Start 11/28/19 at 21:00; Stop 12/02/19 at 06:46; Status DC Magnesium Sulfate 50 ml @ 25 mls/hr 1X ONCE IV Last administered on 11/28/19at 19:10; Start 11/28/19 at 19:00; Stop 11/28/19 at 20:59; Status DC Zinc Sulfate (Orazinc) 220 mg DAILY PO Last administered on 12/14/19 08:26; Start 11/29/19 at 09:00 Ascorbic Acid (Vitamin C) 500 mg Q6HRS PO Last administered on 12/04/19at 11:48; Start 11/29/19 at 00:00; Stop 12/04/19 at 14:58; Status DC Vitamin D (Vitamin D3) 1,000 unit BID PO Last administered on 12/14/19 08:26; Start 11/28/19 at 21:00 Atorvastatin Calcium (Lipitor) 40 mg QHS PO Last administered on 12/13/19 21:26; Start 11/28/19 at 21:00 Enoxaparin Sodium (Lovenox 80mg Syringe) 80 mg 1X ONCE SQ Last administered on 11/28/19at 19:10; Start 11/28/19 at 19:00; Stop 11/28/19 at 19:01; Status DC Enoxaparin Sodium (Lovenox 40mg Syringe) 40 mg Q12HR SQ Last administered on 11/29/19at 20:52; Start 11/29/19 at 09:00; Stop 11/30/19 at 10:00; Status DC Thiamine HCl 200 mg/Dextrose 52 ml @ 102 mls/hr Q12HR IV Last administered on 12/04/19at 09:23; Start 11/28/19 at 19:30; Stop 12/04/19 at 14:59; Status DC Potassium Chloride (Klor-Con) 40 meq 1X ONCE PO Last administered on 11/29/19at 17:15; Start 11/29/19 at 16:45; Stop 11/29/19 at 16:46; Status DC Methylprednisolone Sodium Succinate (SOLU-Medrol 125MG VIAL) 60 mg Q8HRS IV Last administered on 12/03/19at 05:38; Start 11/30/19 at 09:00; Stop 12/03/19 at 10:50; Status DC Piperacillin Sod/ Tazobactam Sod (Zosyn Per Pharmacy) 1 each PRN DAILY PRN MC SEE COMMENTS; Start 11/30/19 at 08:45; Stop 12/10/19 at 17:04; Status DC Piperacillin Sod/ Tazobactam Sod 3.375 gm/Sodium Chloride 50 ml @ 100 mls/hr Q6HRS IV Last administered on 12/10/19at 12:07; Start 11/30/19 at 12:00; Stop 12/10/19 at 17:03; Status DC Heparin Sodium (Porcine) (Heparin Sodium) 5,000 unit Q8HRS SQ Last administered on 12/07/19at 06:09; Start 11/30/19 at 14:00; Stop 12/07/19 at 11:13; Status DC Sterile Water (WATER for RESP) 1,000 ml CONT PRN INH VIA VAPOTHERM DEVICE Last administered on 12/07/19at 15:37; Start 11/30/19 at 17:30 Insulin Glargine (Lantus Syringe) 20 unit BID SQ Last administered on 12/01/19at 12:30; Start 12/01/19 at 12:30; Stop 12/01/19 at 17:33; Status DC Insulin Human Lispro (HumaLOG) 0-9 UNITS TIDWMEALS SQ Last administered on 12/01/19at 17:33; Start 12/01/19 at 12:30; Stop 12/01/19 at 21:03; Status DC Dextrose (Dextrose 50%-Water Syringe) 12.5 gm PRN Q15MIN PRN IV SEE COMMENTS; Start 12/01/19 at 12:15 Sodium Chloride 1,000 ml @ 75 mls/hr 1X ONCE IV Last administered on at 12:58; Start 12/01/19 at 13:00; Stop 12/02/19 at 02:19; Status DC Insulin Glargine (Lantus Syringe) 30 unit BID SQ Last administered on 12/13/19at 10:11; Start 12/01/19 at 21:00 Insulin Human Lispro (HumaLOG) 10 units TIDWMEALS SQ Last administered on 12/01/19at 17:49; Start 12/01/19 at 17:45; Stop 12/01/19 at 21:04; Status DC Insulin Human Lispro (HumaLOG) 0-9 UNITS QIDACHS SQ Last administered on 12/06/19at 21:35; Start 12/02/19 at 07:30; Stop 12/08/19 at 13:39; Status DC Insulin Human Lispro (HumaLOG) 15 units TIDWMEALS SQ Last administered on 12/06/19at 17:31; Start 12/02/19 at 08:00; Stop 12/08/19 at 13:39; Status DC Insulin Human Lispro (HumaLOG) 9 units 1X ONCE SQ Last administered on 12/01/19at 21:16; Start 12/01/19 at 21:30; Stop 12/01/19 at 21:31; Status DC Cyclobenzaprine HCl (Flexeril) 10 mg PRN TID PRN PO MUSCLE SPASMS Last administered on 12/06/19at 20:16; Start 12/02/19 at 06:45 Furosemide (Lasix) 20 mg 1X ONCE IVP ; Start 12/02/19 at 10:15; Stop 12/02/19 at 10:47; Status DC Furosemide (Lasix) 40 mg 1X ONCE IVP Last administered on 12/02/19at 11:09; Start 12/02/19 at 10:45; Stop 12/02/19 at 10:51; Status DC Sodium Chloride 1,000 ml @ 75 mls/hr [id number] IV Last administered on 12/07/19at 23:32; Start 12/02/19 at 14:30; Stop 12/08/19 at 14:44; Status DC Lactobacillus Rhamnosus (Culturelle) 1 cap BID PO Last administered on 12/14/19at 08:26; Start 12/02/19 at 21:00 Methylprednisolone Sodium Succinate (SOLU-Medrol 40MG VIAL) 40 mg Q8HRS IV Last administered on 12/14/19at 05:59; Start 12/03/19 at 14:00 Famotidine (Pepcid Vial) 20 mg DAILY IVP Last administered on 12/14/19at 08:26; Start 12/04/19 at 09:00 Amlodipine Besylate (Norvasc) 10 mg DAILY PO Last administered on 12/06/19at 07:58; Start 12/04/19 at 09:00; Stop 12/06/19 at 18:39; Status DC Hydralazine HCl (Apresoline Inj) 10 mg PRN Q15MIN PRN IVP ELEVATED BP, SEE COMMENTS Last administered on 12/06/19at 10:41; Start 12/04/19 at 00:30; Stop 12/06/19 at 15:23; Status DC Ascorbic Acid (Vitamin C) 500 mg BID PO Last administered on 12/14/19at 08:27; Start 12/04/19 at 21:00 Thiamine Mononitrate (Vitamin B-1) 100 mg BID PO Last administered on 12/14/19at 08:26; Start 12/04/19 at 21:00 Furosemide (Lasix) 40 mg 1X ONCE IVP Last administered on 12/05/19at 11:39; Start 12/05/19 at 11:15; Stop 12/05/19 at 11:16; Status DC Metoprolol Tartrate (Lopressor) 25 mg PRN BID PRN PO TACHYCARDIA; Start 12/05/19 at 22:30; Status Cancel Haloperidol Lactate (Haldol Inj) 2.5 mg PRN Q6HRS PRN IVP Anxiety (2ND CHOICE) Last administered on 12/07/19at 03:19; Start 12/06/19 at 10:45 Furosemide (Lasix) 40 mg 1X ONCE IVP Last administered on 12/06/19at 12:50; Start 12/06/19 at 12:30; Stop 12/06/19 at 12:31; Status DC Hydralazine HCl (Apresoline Inj) 20 mg PRN Q4HRS PRN IVP ELEVATED BP, SEE COMMENTS Last administered on 12/12/19at 23:12; Start 12/06/19 at 15:30 Nicardipine HCl 50 mg/Sodium Chloride 250 ml @ 25 mls/hr CONT PRN IV SEE I/O RECORD Last administered on 12/10/19at 10:28; Start 12/06/19 at 18:45 Dexmedetomidine HCl 400 mcg/ Sodium Chloride 100 ml @ 7.23 mls/hr CONT PRN IV SEE COMMENTS Last administered on 12/07/19at 12:52; Start 12/07/19 at 07:30 Sodium Chloride 500 ml @ 500 mls/hr 1X PRN PRN IV SEE COMMENTS; Start 12/07/19 at 07:30; Stop 12/12/19 at 12:53; Status DC Atropine Sulfate (ATROPINE 0.5mg SYRINGE) 0.5 mg PRN Q5MIN PRN IV SEE COMMENTS; Start 12/07/19 at 07:30 Diltiazem HCl (Cardizem Iv Push) 10 mg 1X ONCE IVP Last administered on 12/07/19at 09:13; Start 12/07/19 at 09:00; Stop 12/07/19 at 09:01; Status DC Diltiazem HCl 125 mg/Sodium Chloride 125 ml @ 5 mls/hr CONT PRN IV SEE I/O RECORD Last administered on 12/07/19at 09:33; Start 12/07/19 at 09:00 Magnesium Sulfate 50 ml @ 25 mls/hr 1X ONCE IV Last administered on 12/07/19at 11:05; Start 12/07/19 at 09:45; Stop 12/07/19 at 11:44; Status DC Heparin Sodium/ Dextrose 250 ml @ 20 mls/hr CONT PRN IV PER PROTOCOL Last administered on 12/13/19at 22:25; Start 12/07/19 at 10:45; Stop 12/14/19 at 10:26; Status DC Heparin Sodium (Porcine) (Heparin Sodium) 4,350 unit PRN Q6HRS PRN IV FOR UFH LEVEL LESS THAN 0.2 Last administered on 12/10/19at 07:33; Start 12/07/19 at 10:45; Stop 12/14/19 at 10:26; Status DC Heparin Sodium (Porcine) (Heparin Sodium) 2,150 unit PRN Q6HRS PRN IV FOR UFH LEVEL 0.2 - 0.29 Last administered on 12/11/19at 06:29; Start 12/07/19 at 10:45; Stop 12/14/19 at 10:26; Status DC Fentanyl Citrate 30 ml @ 0 mls/hr CONT PRN IV SEE PROTOCOL; Start 12/07/19 at 19:45; Stop 12/07/19 at 21:23; Status DC Fentanyl Citrate (Fentanyl 2ml Vial) 25 mcg PRN Q1HR PRN IV SEE COMMENTS; Start 12/07/19 at 19:45 Fentanyl Citrate (Fentanyl 2ml Vial) 50 mcg PRN Q1HR PRN IV SEE COMMENTS; Start 12/07/19 at 19:45 Midazolam HCl 100 ml @ 0 mls/hr CONT PRN IV SEE PROTOCOL Last administered on 12/14/19at 08:25; Start 12/07/19 at 19:45 Propofol 100 ml @ 0 mls/hr CONT PRN IV SEE PROTOCOL Last administered on 12/14/19at 05:12; Start 12/07/19 at 20:00 Fentanyl Citrate 55 ml @ 0 mls/hr CONT PRN PRN IV PAIN/SEDATION Last administered on 12/14/19at 03:31; Start 12/07/19 at 21:30 Atropine Sulfate (ATROPINE 1mg SYRINGE) 1 mg STK-MED ONCE .ROUTE ; Start 12/08/19 at 09:07; Stop 12/08/19 at 09:07; Status DC Epinephrine HCl (EPINEPHrine SYRINGE) 1 mg 1X ONCE IV Last administered on 12/08/19at 08:19; Start 12/08/19 at 09:45; Stop 12/08/19 at 09:50; Status DC Non-Formulary Medication 1 ea/ Sodium Chloride 210 ml @ 210 mls/hr 1X ONCE IV Last administered on 12/08/19at 13:12; Start 12/08/19 at 12:00; Stop 12/08/19 at 12:59; Status DC Non-Formulary Medication 1 ea/ Sodium Chloride 230 ml @ 460 mls/hr Q24H IV Last administered on 12/12/19at 11:42; Start 12/09/19 at 12:00; Stop 12/12/19 at 12:29; Status DC Insulin Human Lispro (HumaLOG) 0-9 UNITS Q6HRS SQ Last administered on 12/13/19at 06:05; Start 12/08/19 at 18:00 Etomidate (Amidate) 20 mg STK-MED ONCE IV ; Start 12/07/19 at 12:00; Stop 12/09/19 at 08:48; Status DC Succinylcholine Chloride (Anectine) 200 mg STK-MED ONCE .ROUTE ; Start 12/07/19 at 12:00; Stop 12/09/19 at 08:49; Status DC Ephedrine Sulfate (ePHEDrine PF IN SALINE SYRINGE) 50 mg STK-MED ONCE IV ; Start 12/07/19 at 12:00; Stop 12/09/19 at 08:49; Status DC Phenylephrine HCl (PHENYLEPHRINE in 0.9% NACL PF) 1 mg STK-MED ONCE IV ; Start 12/07/19 at 12:00; Stop 12/09/19 at 08:49; Status DC Propofol (Diprivan) 200 mg STK-MED ONCE IV ; Start 12/07/19 at 12:00; Stop 12/09/19 at 08:49; Status DC Epinephrine HCl (EPINEPHrine SYRINGE) 2 mg STK-MED ONCE .ROUTE ; Start 12/08/19 at 09:30; Stop 12/09/19 at 09:05; Status DC Atropine Sulfate (ATROPINE 1mg SYRINGE) 1 mg STK-MED ONCE .ROUTE ; Start 12/08/19 at 09:30; Stop 12/09/19 at 09:05; Status DC Info (Anti-Coagulation Monitoring By Pharmacy) 1 each PRN DAILY PRN MC SEE COMMENTS Last administered on 12/13/19at 13:41; Start 12/09/19 at 13:00; Stop 12/14/19 at 12:25; Status DC Furosemide (Lasix) 40 mg 1X ONCE IVP Last administered on 12/09/19at 14:30; Start 12/09/19 at 14:30; Stop 12/09/19 at 14:31; Status DC Vecuronium [place] 50 mg/ Miscellaneous 50 ml @ 7.598 mls/ hr CONT PRN IV SEE I/O RECORD Last administered on 12/13/19at 02:21; Start 12/10/19 at 21:00 Vecuronium [place] (Norcuron Bolus) 8 mg PRN Q2HR PRN IV SEDATION Last administered on 12/12/19at 00:59; Start 12/10/19 at 21:00 Sodium Chloride 500 ml @ 999 mls/hr Q31M IV Last administered on 12/12/19at 11:31; Start 12/12/19 at 11:00; Stop 12/12/19 at 12:53; Status DC Lidocaine HCl (Buffered Lidocaine 1%) 3 ml STK-MED ONCE .ROUTE ; Start 12/12/19 at 11:36; Stop 12/12/19 at 11:37; Status DC Lidocaine HCl (Buffered Lidocaine 1%) 3 ml 1X ONCE INJ Last administered on 12/12/19at 12:45; Start 12/12/19 at 12:45; Stop 12/12/19 at 12:49; Status DC Active Scripts Active [place] 5-325 Tablet (Acetaminophen/Hydrocodone Bitart) 1 Each Tablet 1 Tab PO PRN Q6HRS PRN Orphenadrine Citrate 100 Mg Tablet.er 1 Tab PO BID Amlodipine Besylate 5 Mg Tablet 5 Mg PO DAILY Reported Lisinopril 40 Mg Tablet 40 Mg PO DAILY Glipizide 5 Mg Tablet 2.5 Mg PO DAILY Hydrochlorothiazide Tablet (Hydrochlorothiazide) 12.5 Mg Tablet 25 Mg PO DAILY Furosemide 20 Mg Tablet 20 Mg PO DAILY Tamsulosin Hcl 0.4 Mg Cap.er.24h 1 Cap PO DAILY Aspirin 81 Mg Tab.chew 81 Mg PO DAILY Metformin Hcl 500 Mg Tablet 500 Mg PO DAILY Allergies Allergies: Coded Allergies: No Known Drug Allergies (Unverified , 02/18/17) Vitals VITALS Vital Signs Date Time Temp Pulse Resp B/P (MAP) Pulse Ox O2 Delivery O2 Flow Rate FiO2 12/14/19 13:00 96.8 48 24 153/59 (90) 98 Ventilator 96.8 12/14/19 04:01 35.0 Labs Labs Laboratory Tests Test 12/12/19 17:56 12/12/19 23:58 12/13/19 05:30 12/13/19 08:40 Glucose (Fingerstick) 185 mg/dL (70-99) 234 mg/dL (70-99) White Blood Count 13.4 x10^3/uL (4.0-11.0) Red Blood Count 3.08 x10^6/uL (4.30-5.70) Hemoglobin 9.3 g/dL (13.0-17.5) Hematocrit 28.9 % (39.0-53.0) Mean Corpuscular Volume 94 fL (79-100) Mean Corpuscular Hemoglobin 30 pg (25-35) Mean Corpuscular Hemoglobin Concent 32 g/dL (31-37) Red Cell Distribution Width 15.1 % (11.5-14.5) Platelet Count 150 x10^3/uL (140-400) Heparin Anti-Xa Act, Unfractionated 0.37 IU/mL (0.30-0.70) Sodium Level 144 mmol/L (136-145) Potassium Level 5.0 mmol/L (3.5-5.1) Chloride Level 109 mmol/L (98-107) Carbon Dioxide Level 30 mmol/L (21-32) Anion Gap 5 (6-14) Blood Urea Nitrogen 75 mg/dL (8-26) Creatinine 2.1 mg/dL (0.7-1.3) Estimated GFR (Cockcroft-Gault) 38.1 Glucose Level 212 mg/dL (70-99) Calcium Level 7.8 mg/dL (8.5-10.1) O2 Saturation 93 % (92-99) Arterial Blood pH 7.34 (7.35-7.45) Arterial Blood pCO2 at Patient Temp 49 mmHg (35-46) Arterial Blood pO2 at Patient Temp 72 mmHg (65-108) Arterial Blood HCO3 26 mmol/L (21-28) Arterial Blood Base Excess -1 mmol/L (-3-3) FiO2 100 Test 12/13/19 13:05 12/13/19 17:51 12/13/19 21:56 12/13/19 23:39 Glucose (Fingerstick) 121 mg/dL (70-99) 110 mg/dL (70-99) 108 mg/dL (70-99) 92 mg/dL (70-99) Test 12/14/19 05:20 12/14/19 06:22 12/14/19 08:27 White Blood Count 12.8 x10^3/uL (4.0-11.0) Red Blood Count 3.17 x10^6/uL (4.30-5.70) Hemoglobin 9.3 g/dL (13.0-17.5) Hematocrit 29.7 % (39.0-53.0) Mean Corpuscular Volume 94 fL (79-100) Mean Corpuscular Hemoglobin 29 pg (25-35) Mean Corpuscular Hemoglobin Concent 31 g/dL (31-37) Red Cell Distribution Width 14.8 % (11.5-14.5) Platelet Count 147 x10^3/uL (140-400) Heparin Anti-Xa Act, Unfractionated 0.41 IU/mL (0.30-0.70) Sodium Level 147 mmol/L (136-145) Potassium Level 5.3 mmol/L (3.5-5.1) Chloride Level 112 mmol/L (98-107) Carbon Dioxide Level 28 mmol/L (21-32) Anion Gap 7 (6-14) Blood Urea Nitrogen 69 mg/dL (8-26) Creatinine 1.6 mg/dL (0.7-1.3) Estimated GFR (Cockcroft-Gault) 52.1 Glucose Level 102 mg/dL (70-99) Calcium Level 8.4 mg/dL (8.5-10.1) Glucose (Fingerstick) 95 mg/dL (70-99) O2 Saturation 92 % (92-99) Arterial Blood pH 7.42 (7.35-7.45) Arterial Blood pCO2 at Patient Temp 43 mmHg (35-46) Arterial Blood pO2 at Patient Temp 66 mmHg (65-108) Arterial Blood HCO3 27 mmol/L (21-28) Arterial Blood Base Excess 2 mmol/L (-3-3) FiO2 90 Laboratory Tests Test 12/13/19 17:51 12/13/19 21:56 12/13/19 23:39 12/14/19 05:20 Glucose (Fingerstick) 110 mg/dL (70-99) 108 mg/dL (70-99) 92 mg/dL (70-99) White Blood Count 12.8 x10^3/uL (4.0-11.0) Red Blood Count 3.17 x10^6/uL (4.30-5.70) Hemoglobin 9.3 g/dL (13.0-17.5) Hematocrit 29.7 % (39.0-53.0) Mean Corpuscular Volume 94 fL (79-100) Mean Corpuscular Hemoglobin 29 pg (25-35) Mean Corpuscular Hemoglobin Concent 31 g/dL (31-37) Red Cell Distribution Width 14.8 % (11.5-14.5) Platelet Count 147 x10^3/uL (140-400) Heparin Anti-Xa Act, Unfractionated 0.41 IU/mL (0.30-0.70) Sodium Level 147 mmol/L (136-145) Potassium Level 5.3 mmol/L (3.5-5.1) Chloride Level 112 mmol/L (98-107) Carbon Dioxide Level 28 mmol/L (21-32) Anion Gap 7 (6-14) Blood Urea Nitrogen 69 mg/dL (8-26) Creatinine 1.6 mg/dL (0.7-1.3) Estimated GFR (Cockcroft-Gault) 52.1 Glucose Level 102 mg/dL (70-99) Calcium Level 8.4 mg/dL (8.5-10.1) Test 12/14/19 06:22 12/14/19 08:27 Glucose (Fingerstick) 95 mg/dL (70-99) O2 Saturation 92 % (92-99) Arterial Blood pH 7.42 (7.35-7.45) Arterial Blood pCO2 at Patient Temp 43 mmHg (35-46) Arterial Blood pO2 at Patient Temp 66 mmHg (65-108) Arterial Blood HCO3 27 mmol/L (21-28) Arterial Blood Base Excess 2 mmol/L (-3-3) FiO2 90 Assessment/Plan Assessment/Plan [place] emesis- with COVID, anticoagulation stopped. Most likely secondary to UGI bleed. PUD, erosive GERD, and/or Melissa aguilar tear lead differential Plan medical therapy with acid suppression serial CBCS endoscopy as last resort with unstable hemodynamics and oxygenation Full note dictated MICHELLE SARABIA MD Dec 14, 2019 13:38
--- NOTE | 2019-12-14 15:31 | CONS ---
DATE OF CONSULTATION: 12/14/2019 REASON FOR CONSULTATION: Coffee-ground emesis. HISTORY OF PRESENT ILLNESS: A 69-year-old male whose past medical history is significant for hypertension, hyperlipidemia, BPH and diabetes, is admitted with respiratory failure and COVID pneumonia. Hospital course has been complicated by prolonged ventilation with increasing FiO2 requirements. He has been on anticoagulation, which has been stopped with the onset of the bleeding. The patient is unable to give additional history as he is intubated. Blood counts are stable presently and he is on Pepcid drip. PAST MEDICAL HISTORY: Hypertension, hyperlipidemia, BPH, diabetes, obesity, COVID pneumonia. ALLERGIES: None. MEDICATIONS: Include vecuronium insulin, propofol, midazolam, diltiazem, atropine, nicardipine, hydralazine, ascorbic acid, famotidine. FAMILY AND SOCIAL HISTORY: Not obtainable. REVIEW OF SYSTEMS: Not obtainable. PHYSICAL EXAMINATION: GENERAL: Reveals a disabled white male who is intubated, unresponsive. VITAL SIGNS: Temperature is 96.8, pulse is 46, respiratory rate 24, blood pressure 153/59. LUNGS: Coarse breath sounds. CARDIOVASCULAR: S1, S2 without S3, S4 or appreciable murmur. ABDOMEN: Soft abdomen, normal bowel sounds, without appreciable hepatosplenomegaly. EXTREMITIES: Reveals 2+ edema. LABORATORY STUDIES: Today, hemoglobin is 9.8, hematocrit 29.7, white count 12.8, platelet count is 147,000. Sodium 147, potassium is 5.3, chloride 112, BUN 69, creatinine 1.6, glucose is 95. IMPRESSION AND PLAN: Coffee-ground emesis, most likely secondary to stress ulcer, Melissa-Cotto tear, erosive esophagitis. Recommend medical therapy in view of the patient's tenuous pulmonary status and oxygenation as well as hemodynamics, endoscopy would be a last ditch effort if the patient should become otherwise more unstable. Prognosis remains guarded. MICHELLE SARABIA MD DR: HA/monisha JOB#: [id number] / [id number] RAN Turner MD
[2019-12-14] MEDS: AMINO AC 3%/ELECTROLYTE/GLYCER 1,000 ML IV SCH (17:16)
[2019-12-14] MEDS: ATORVASTATIN CALCIUM 40 MG TABLET. PO SCH (20:34)
[2019-12-14] MEDS: hydrALAZINE 20 MG/ML VIAL. IVP PRN (22:58)
[2019-12-15] VITALS (24 sets, daily range): BP systolic 62–246; BP diastolic 44–70
[2019-12-15] MEDS: PROPOFOL 100 ML IV PRN ×3 (04:23→22:33)
[2019-12-15] MEDS: fentaNYL HIGH DOSE PCA 55 ML IV PRN ×2 (04:58→17:07)
[2019-12-15] MEDS: INSULIN LISPRO 300 UNITS/3 ML VIAL. SQ SCH ×4 (06:00→17:58)
[2019-12-15] MEDS: methylPREDNISolone SOD SUCC PF 40 MG/ML VIAL. IV SCH ×3 (06:17→21:23)
[2019-12-15] MEDS: MIDAZOLAM 100mg/100ml NS BAG 100 ML IV PRN ×2 (06:22→16:55)
[2019-12-15] MEDS: AMINO AC 3%/ELECTROLYTE/GLYCER 1,000 ML IV SCH (06:24)
[2019-12-15 06:50] LABS: CALCIUM 8.5 mg/dL (8.5-10.1); CREATININE 1.7 mg/dL (0.7-1.3); GFR 48.6; MAGNESIUM 2.4 mg/dL (1.8-2.4); PHOSPHORUS 4.7 mg/dL (2.6-4.7); POTASSIUM 5.9 mmol/L (3.5-5.1)
[2019-12-15 08:27] LABS: BASE EXCESS ABG -1 mmol/L (-3-3); HCO3 ABG 25 mmol/L (21-28); PCO2 ABG 43 mmHg (35-46); PO2 ABG 72 mmHg (65-108); SAT O2 ABG 93 % (92-99)
[2019-12-15] MEDS: LACTOBACILLUS RHAMNOSUS GG 1 CAPSULE. PO SCH ×2 (08:50→21:23)
[2019-12-15] MEDS: CHOLECALCIFEROL (VITAMIN D3) 1,000 UNIT TABLET PO SCH ×2 (08:50→21:23)
[2019-12-15] MEDS: TAMSULOSIN 0.4 MG CAP.ER.24H. PO SCH (08:50)
[2019-12-15] MEDS: ASCORBIC ACID 500 MG TABLET PO SCH ×2 (08:50→21:23)
[2019-12-15] MEDS: THIAMINE 100 MG TABLET. PO SCH ×2 (08:50→21:23)
[2019-12-15] MEDS: SENNOSIDES/DOCUSATE 8.6/50MG TABLET. PO SCH ×2 (08:50→21:23)
[2019-12-15] MEDS: ASPIRIN CHEWABLE 81 MG TABLET. PO SCH (08:50)
[2019-12-15] MEDS: ZINC SULFATE 220 MG CAPSULE. PO SCH (08:50)
[2019-12-15] MEDS: INSULIN GLARGINE SYRINGE. SQ SCH ×2 (08:51→21:00)
[2019-12-15] MEDS: PANTOPRAZOLE IV PUSH 40 MG VIAL. IVP SCH (08:51)
[2019-12-15] MEDS: LACTULOSE 20 GM/30 ML SOLUTION. PO PRN (08:51)
[2019-12-15 09:11] LABS: FIO2 ABG 85
--- NOTE | 2019-12-15 09:32 | PDOC ---
PULMONARY PROGRESS NOTES DATE: 12/15/19 TIME: 09:30 Subjective intubated 12/07 remains on AC mode,peep 10 fi02 90% on propofol versed fentanyl small ett secretion Vitals Vital Signs Date Time Temp Pulse Resp B/P (MAP) Pulse Ox O2 Delivery O2 Flow Rate FiO2 12/15/19 08:00 12/15/19 08:00 Mechanical Ventilator 12/15/19 07:00 97.5 57 24 99 97.5 Comments visual exam done on vent sedated nc at rrr no accessory muscle use no paradoxical abd motion no rash +edema General: No acute distress Labs Laboratory Tests Test 12/13/19 13:05 12/13/19 17:51 12/13/19 21:56 12/13/19 23:39 Glucose (Fingerstick) 121 mg/dL (70-99) 110 mg/dL (70-99) 108 mg/dL (70-99) 92 mg/dL (70-99) Test 12/14/19 05:20 12/14/19 06:22 12/14/19 08:27 12/14/19 17:37 White Blood Count 12.8 x10^3/uL (4.0-11.0) Red Blood Count 3.17 x10^6/uL (4.30-5.70) Hemoglobin 9.3 g/dL (13.0-17.5) Hematocrit 29.7 % (39.0-53.0) Mean Corpuscular Volume 94 fL (79-100) Mean Corpuscular Hemoglobin 29 pg (25-35) Mean Corpuscular Hemoglobin Concent 31 g/dL (31-37) Red Cell Distribution Width 14.8 % (11.5-14.5) Platelet Count 147 x10^3/uL (140-400) Heparin Anti-Xa Act, Unfractionated 0.41 IU/mL (0.30-0.70) Sodium Level 147 mmol/L (136-145) Potassium Level 5.3 mmol/L (3.5-5.1) Chloride Level 112 mmol/L (98-107) Carbon Dioxide Level 28 mmol/L (21-32) Anion Gap 7 (6-14) Blood Urea Nitrogen 69 mg/dL (8-26) Creatinine 1.6 mg/dL (0.7-1.3) Estimated GFR (Cockcroft-Gault) 52.1 Glucose Level 102 mg/dL (70-99) Calcium Level 8.4 mg/dL (8.5-10.1) Glucose (Fingerstick) 95 mg/dL (70-99) 95 mg/dL (70-99) O2 Saturation 92 % (92-99) Arterial Blood pH 7.42 (7.35-7.45) Arterial Blood pCO2 at Patient Temp 43 mmHg (35-46) Arterial Blood pO2 at Patient Temp 66 mmHg (65-108) Arterial Blood HCO3 27 mmol/L (21-28) Arterial Blood Base Excess 2 mmol/L (-3-3) FiO2 90 Test 12/14/19 20:32 12/15/19 00:13 12/15/19 05:55 12/15/19 06:00 Glucose (Fingerstick) 112 mg/dL (70-99) 131 mg/dL (70-99) 151 mg/dL (70-99) Sodium Level 145 mmol/L (136-145) Potassium Level 5.9 mmol/L (3.5-5.1) Chloride Level 111 mmol/L (98-107) Carbon Dioxide Level 28 mmol/L (21-32) Anion Gap 6 (6-14) Blood Urea Nitrogen 77 mg/dL (8-26) Creatinine 1.7 mg/dL (0.7-1.3) Estimated GFR (Cockcroft-Gault) 48.6 Glucose Level 152 mg/dL (70-99) Calcium Level 8.5 mg/dL (8.5-10.1) Phosphorus Level 4.7 mg/dL (2.6-4.7) Magnesium Level 2.4 mg/dL (1.8-2.4) Test 12/15/19 08:00 O2 Saturation 93 % (92-99) Arterial Blood pH 7.38 (7.35-7.45) Arterial Blood pCO2 at Patient Temp 43 mmHg (35-46) Arterial Blood pO2 at Patient Temp 72 mmHg (65-108) Arterial Blood HCO3 25 mmol/L (21-28) Arterial Blood Base Excess -1 mmol/L (-3-3) FiO2 85 Laboratory Tests Test 12/14/19 17:37 12/14/19 20:32 12/15/19 00:13 12/15/19 05:55 Glucose (Fingerstick) 95 mg/dL (70-99) 112 mg/dL (70-99) 131 mg/dL (70-99) 151 mg/dL (70-99) Test 12/15/19 06:00 12/15/19 08:00 Sodium Level 145 mmol/L (136-145) Potassium Level 5.9 mmol/L (3.5-5.1) Chloride Level 111 mmol/L (98-107) Carbon Dioxide Level 28 mmol/L (21-32) Anion Gap 6 (6-14) Blood Urea Nitrogen 77 mg/dL (8-26) Creatinine 1.7 mg/dL (0.7-1.3) Estimated GFR (Cockcroft-Gault) 48.6 Glucose Level 152 mg/dL (70-99) Calcium Level 8.5 mg/dL (8.5-10.1) Phosphorus Level 4.7 mg/dL (2.6-4.7) Magnesium Level 2.4 mg/dL (1.8-2.4) O2 Saturation 93 % (92-99) Arterial Blood pH 7.38 (7.35-7.45) Arterial Blood pCO2 at Patient Temp 43 mmHg (35-46) Arterial Blood pO2 at Patient Temp 72 mmHg (65-108) Arterial Blood HCO3 25 mmol/L (21-28) Arterial Blood Base Excess -1 mmol/L (-3-3) FiO2 85 Medications Active Scripts Medications Dose Route/Sig Max Daily Dose Days Date Category [place] 5-325 Tablet (Acetaminophen/Hydrocodone Bitart) 1 Each Tablet 1 Tab PO PRN Q6HRS PRN 03/20/18 Rx Orphenadrine Citrate 100 Mg Tablet.er 1 Tab PO BID 03/20/18 Rx Amlodipine Besylate 5 Mg Tablet 5 Mg PO DAILY 02/20/17 Rx Lisinopril 40 Mg Tablet 40 Mg PO DAILY 02/18/17 Reported Glipizide 5 Mg Tablet 2.5 Mg PO DAILY 02/18/17 Reported Hydrochlorothiazide Tablet (Hydrochlorothiazide) 12.5 Mg Tablet 25 Mg PO DAILY 02/18/17 Reported Furosemide 20 Mg Tablet 20 Mg PO DAILY 02/18/17 Reported Tamsulosin Hcl 0.4 Mg Cap.er.24h 1 Cap PO DAILY 02/18/17 Reported Aspirin 81 Mg Tab.chew 81 Mg PO DAILY 02/18/17 Reported Metformin Hcl 500 Mg Tablet 500 Mg PO DAILY 02/18/17 Reported Comments CXR reviewed Right IJ dialysis catheter is identified with the distal tip projecting over the right atrium. No pneumothorax. Increased patchy interstitial and alveolar airspace disease suggestive of worsening pulmonary edema. Impression . 1. Acute hypoxic respiratory failure secondary to COVID-19 pneumonia/acute lung injury/ acute respiratory distress syndrome. 2. Abnormal chest x-ray with bilateral interstitial infiltrates, COVID-19 pneumonia.-- 3. No significant tobacco history. 4. Acute kidney injury on top of CKD , 5. Severe protein-calorie malnutrition. 6. Abnormal D-dimer, likely related to COVID pneumonia. 7. New onset A. fib with rapid ventricular response, controlled Plan . Intubated 12/07 for increasing shortness of air and decrease saturation cont AC mode, setting reviewed, titrate fio2 to keep sat >94% Remdesivir 12/07 Follow cardiology input for new onset A. fib, resolved now lasix prn Azotemia. no need for HD, monitor closely Continue steroids with taper for COVID-19 pneumonia, will need total of 10 days empiric antibiotics Follow renal recommendations, S/P plasma D-dimers elevated secondary to COVID, patient on full dose hep (for A-fib) Pt accepted at [facility] but not stable for transfer DVT/GI PPX - D/W RN and RT critically ill TOTAL CRITICAL CARE TIME: 30 minutes. no overlap Addend: Pt became hypoxic and bradycardic later this morning. Had to suction for secretions. Oxygen level and HR later improved. PEEP increased further. d/w son and in detail. Advance directives discussed in detail. Rec DNR but continue aggressive care.They will let me know later today about code status addend: d/w son. Pt not likely to survive. He agrees with DNR ABBY MOORE MD Dec 15, 2019 09:32
--- NOTE | 2019-12-15 09:38 | PDOC ---
PROGRESS NOTES Date of Service: DATE: 12/15/19 TIME: 09:36 Chief Complaint Chief Complaint COVID 19 infection/ viral sepsis acute hypoxemic respiratory distress due to the above. Acute renal failure due to vasomotor nephropathy normocytic anemia Diabetes-Type II High Cholesterol Hypertension Severe protein calorie malnutrition Coffee ground emesis, GI evaluation noted, recommendations greatly appreciated. Plan will start PPI will follow results of lab work supportive measures follow h and h currently stable. History of Present Illness History of Present Illness 12/15/2019 Remains on mechanical ventilation No further coffee-ground emesis GI consultation noted Sedated on propofol Remains critically ill Prognosis guarded 12/14/2019 Patient seen in the [place] [id number] ICU Remains intubated AC/24/600 with 90% FiO2 and 10 of PEEP Discussed with RN Patient having some coffee-ground emesis I consulted GI awaiting their input Currently sedated with Versed fentanyl and propofol He also has a heparin drip He remains critically ill 12/13/2019 Patient seen and examined in the [place] [address] ICU He remains intubated Assist-control/6 100/90% with 10 of PEEP He has OG in place He is sedated with Versed fentanyl and propofol He also has a heparin drip Chart reviewed Discussed with RN He remains extremely critically ill we are concerned he may not survive 12/12/2019 Patient seen in ICU [place] [id number] unit He remains intubated and mechanically ventilated AC/24/6 100/100% with 10 of PEEP He is sedated with propofol Versed and fentanyl I discussed the case with the bottle caser discussed with RNs as well Chart reviewed He remains very critically ill as he is on 100% oxygen 12/11/2019 Patient seen and examined once again in the [place] [address] ICU He is intubated Assist-control/24/6 100/100% with 9 of PEEP He has OG feeds running at 60 cc an hour He is on a heparin drip He is fentanyl and Versed for sedation Discussed with the bottle caser Discussed with RN Chart reviewed He remains critically ill 12-10-2019 Patient seen and examined in the [place] [address] ICU He is still intubated He is back on 100% FiO2 AC/24/6 100/100% with 10 of PEEP I discussed the case with the bottle caser I spoke with his son Jayden yesterday by phone for quite some time Chart reviewed 12-09-2019 Patient seen and examined in the [facility] He remains intubated Assist-control/30/09 100/90% with 7 of PEEP He is sedated with Versed propofol He is also on a heparin drip Also has fentanyl IV Discussed with case management Discussed with RN Chart reviewed I tried to call the family but no answer I left a voicemail Plan is to [facility] possible Mr Olvera is a 69yo M w/ PMHx Diabetes-Type II, High Cholesterol, Hypertension who was in his usual state of health until 2 days prior ot his admission when he was evaluated at [facility] and found to be positive for COVID 19 virus, patient was discharged and given instructions to follow up in the nearest medical center would his symptoms worsen, Today he felt worse and more dyspneic reason why he came to the ER, he initially requiring 1 liter of oxygen 11/28: Febrile 101 3 F overnight. Procalcitonin elevated, INR 1.4, WBC 9.1, Hb 11.9, platelets 189, NA 137, K3.4, BUN 39, CR 2.8, glucose 240. He is short of breath with cough. He is insistent he does not wish for convalescent FFP if his O2 needs continues to increase. Now on 4L NCO2. 11/29: Febrile to 101.5 F overnight. Creatinine increased to 4.1, he still very short of breath worsening cough, increased from 6 L nasal cannula overnight to 15 L nonrebreather facemask. I discussed with pulmonology to transferred out of the ICU. I have asked the patient to reconsider convalesce and FFP and will discuss with his family. 11/30: No acute events reported overnight, case discussed with nursing staff patient in no acute distress no complaints during my visit seems to be tolerating Vapotherm well hopefully he will be able to continue with improving, encourage proning position if tolerated 12/01: No acute events reported overnight, case discussed with nursing staff donaldo ent in no acute distress no complaints during my visit, given update patient's over the phone reassurance has been provided no new complaints seems to be status quo. Encourage more activity as tolerated in prone positioning 12/02: Discussed with nursing staff, no acute events overnight. Breathing well on Vapotherm. Continue ICU monitoring. 12/03: Patient with O2 desaturation overnight. Breathing more comfortably upright position. Currently breathing on 40 L of high flow nasal cannula with 100% O2 saturation 12/07 : PLACED ON VENT OVER NIGHT, inc resp distress Vitals Vitals Vital Signs Date Time Temp Pulse Resp B/P (MAP) Pulse Ox O2 Delivery O2 Flow Rate FiO2 12/15/19 08:00 12/15/19 08:00 Mechanical Ventilator 12/15/19 07:00 97.5 57 24 99 97.5 Physical Exam Physical Exam sedated on vent General: No acute distress, Other Heart: Regular rate, Normal S1, Normal S2 Abdomen: Normal bowel sounds, Soft Extremities: No clubbing, No cyanosis Skin: No rashes, No breakdown Labs LABS Laboratory Tests Test 12/14/19 17:37 12/14/19 20:32 12/15/19 00:13 12/15/19 05:55 Glucose (Fingerstick) 95 mg/dL (70-99) 112 mg/dL (70-99) 131 mg/dL (70-99) 151 mg/dL (70-99) Test 12/15/19 06:00 12/15/19 08:00 Sodium Level 145 mmol/L (136-145) Potassium Level 5.9 mmol/L (3.5-5.1) Chloride Level 111 mmol/L (98-107) Carbon Dioxide Level 28 mmol/L (21-32) Anion Gap 6 (6-14) Blood Urea Nitrogen 77 mg/dL (8-26) Creatinine 1.7 mg/dL (0.7-1.3) Estimated GFR (Cockcroft-Gault) 48.6 Glucose Level 152 mg/dL (70-99) Calcium Level 8.5 mg/dL (8.5-10.1) Phosphorus Level 4.7 mg/dL (2.6-4.7) Magnesium Level 2.4 mg/dL (1.8-2.4) O2 Saturation 93 % (92-99) Arterial Blood pH 7.38 (7.35-7.45) Arterial Blood pCO2 at Patient Temp 43 mmHg (35-46) Arterial Blood pO2 at Patient Temp 72 mmHg (65-108) Arterial Blood HCO3 25 mmol/L (21-28) Arterial Blood Base Excess -1 mmol/L (-3-3) FiO2 85 Assessment and Plan Assessmemt and Plan Problems Medical Problems: (1) ARF (acute renal failure) Status: Acute (2) Fever Status: Acute (3) Hypoxemia Status: Acute (4) Sepsis Status: Acute Comment Review of Relevant I have reviewed the following items bren (where applicable) has been applied. Labs Laboratory Tests Test 12/13/19 13:05 12/13/19 17:51 12/13/19 21:56 12/13/19 23:39 Glucose (Fingerstick) 121 mg/dL (70-99) 110 mg/dL (70-99) 108 mg/dL (70-99) 92 mg/dL (70-99) Test 12/14/19 05:20 12/14/19 06:22 12/14/19 08:27 12/14/19 17:37 White Blood Count 12.8 x10^3/uL (4.0-11.0) Red Blood Count 3.17 x10^6/uL (4.30-5.70) Hemoglobin 9.3 g/dL (13.0-17.5) Hematocrit 29.7 % (39.0-53.0) Mean Corpuscular Volume 94 fL (79-100) Mean Corpuscular Hemoglobin 29 pg (25-35) Mean Corpuscular Hemoglobin Concent 31 g/dL (31-37) Red Cell Distribution Width 14.8 % (11.5-14.5) Platelet Count 147 x10^3/uL (140-400) Heparin Anti-Xa Act, Unfractionated 0.41 IU/mL (0.30-0.70) Sodium Level 147 mmol/L (136-145) Potassium Level 5.3 mmol/L (3.5-5.1) Chloride Level 112 mmol/L (98-107) Carbon Dioxide Level 28 mmol/L (21-32) Anion Gap 7 (6-14) Blood Urea Nitrogen 69 mg/dL (8-26) Creatinine 1.6 mg/dL (0.7-1.3) Estimated GFR (Cockcroft-Gault) 52.1 Glucose Level 102 mg/dL (70-99) Calcium Level 8.4 mg/dL (8.5-10.1) Glucose (Fingerstick) 95 mg/dL (70-99) 95 mg/dL (70-99) O2 Saturation 92 % (92-99) Arterial Blood pH 7.42 (7.35-7.45) Arterial Blood pCO2 at Patient Temp 43 mmHg (35-46) Arterial Blood pO2 at Patient Temp 66 mmHg (65-108) Arterial Blood HCO3 27 mmol/L (21-28) Arterial Blood Base Excess 2 mmol/L (-3-3) FiO2 90 Test 12/14/19 20:32 12/15/19 00:13 12/15/19 05:55 12/15/19 06:00 Glucose (Fingerstick) 112 mg/dL (70-99) 131 mg/dL (70-99) 151 mg/dL (70-99) Sodium Level 145 mmol/L (136-145) Potassium Level 5.9 mmol/L (3.5-5.1) Chloride Level 111 mmol/L (98-107) Carbon Dioxide Level 28 mmol/L (21-32) Anion Gap 6 (6-14) Blood Urea Nitrogen 77 mg/dL (8-26) Creatinine 1.7 mg/dL (0.7-1.3) Estimated GFR (Cockcroft-Gault) 48.6 Glucose Level 152 mg/dL (70-99) Calcium Level 8.5 mg/dL (8.5-10.1) Phosphorus Level 4.7 mg/dL (2.6-4.7) Magnesium Level 2.4 mg/dL (1.8-2.4) Test 12/15/19 08:00 O2 Saturation 93 % (92-99) Arterial Blood pH 7.38 (7.35-7.45) Arterial Blood pCO2 at Patient Temp 43 mmHg (35-46) Arterial Blood pO2 at Patient Temp 72 mmHg (65-108) Arterial Blood HCO3 25 mmol/L (21-28) Arterial Blood Base Excess -1 mmol/L (-3-3) FiO2 85 Laboratory Tests Test 12/14/19 17:37 12/14/19 20:32 12/15/19 00:13 12/15/19 05:55 Glucose (Fingerstick) 95 mg/dL (70-99) 112 mg/dL (70-99) 131 mg/dL (70-99) 151 mg/dL (70-99) Test 12/15/19 06:00 12/15/19 08:00 Sodium Level 145 mmol/L (136-145) Potassium Level 5.9 mmol/L (3.5-5.1) Chloride Level 111 mmol/L (98-107) Carbon Dioxide Level 28 mmol/L (21-32) Anion Gap 6 (6-14) Blood Urea Nitrogen 77 mg/dL (8-26) Creatinine 1.7 mg/dL (0.7-1.3) Estimated GFR (Cockcroft-Gault) 48.6 Glucose Level 152 mg/dL (70-99) Calcium Level 8.5 mg/dL (8.5-10.1) Phosphorus Level 4.7 mg/dL (2.6-4.7) Magnesium Level 2.4 mg/dL (1.8-2.4) O2 Saturation 93 % (92-99) Arterial Blood pH 7.38 (7.35-7.45) Arterial Blood pCO2 at Patient Temp 43 mmHg (35-46) Arterial Blood pO2 at Patient Temp 72 mmHg (65-108) Arterial Blood HCO3 25 mmol/L (21-28) Arterial Blood Base Excess -1 mmol/L (-3-3) FiO2 85 Microbiology 12/01/19 Urine Culture - Final, Complete Medications Current Medications Ondansetron HCl (Zofran) 4 mg 1X ONCE IV Last administered on 11/28/19at 16:25; Start 11/28/19 at 15:30; Stop 11/28/19 at 15:36; Status DC Acetaminophen (Tylenol) 1,000 mg 1X ONCE PO Last administered on 11/28/19at 16:25; Start 11/28/19 at 15:45; Stop 11/28/19 at 16:03; Status DC Acetaminophen (Tylenol) 650 mg PRN Q6HRS PRN PO Headaches, Temp > 101.5' Last administered on 11/30/19at 08:45; Start 11/28/19 at 17:45 Lorazepam (Ativan Inj) 0.5 mg PRN Q6HRS PRN IVP ANXIETY / AGITATION Last administered on 12/06/19at 22:50; Start 11/28/19 at 17:45 Ondansetron HCl (Zofran) 4 mg PRN Q6HRS PRN IVP NAUSEA/VOMITING; Start 11/28/19 at 17:45 Famotidine (Pepcid Vial) 20 mg BID IVP Last administered on 12/03/19at 07:48; Start 11/28/19 at 21:00; Stop 12/03/19 at 15:24; Status DC Info (Icu Electrolyte Protocol) 1 ea DAILY MC ; Start 11/29/19 at 09:00; Stop 11/28/19 at 18:16; Status DC Enoxaparin Sodium (Lovenox 40mg Syringe) 150 mg Q12HR SQ ; Start 11/28/19 at 21:00; Stop 11/28/19 at 18:16; Status DC Sodium Chloride (Normal Saline Flush) 3 ml QSHIFT PRN IV AFTER MEDS AND BLOOD DRAWS; Start 11/28/19 at 17:45 Acetaminophen/ Hydrocodone Bitart (Lortab 5/325) 1 tab PRN Q4HRS PRN PO MILD PAIN, 2ND CHOICE; Start 11/28/19 at 17:45 Morphine Sulfate (Morphine Sulfate) 1 mg PRN Q1HR PRN IV PAIN; Start 11/28/19 at 17:45; Stop 12/10/19 at 01:00; Status DC Senna/Docusate Sodium (Senna Plus) 1 tab BID PO Last administered on 12/15/19at 08:50; Start 11/28/19 at 21:00 Lactulose (Lactulose) 20 gm PRN Q12HR PRN PO CONSTIPATION Last administered on 12/15/19at 08:51; Start 11/28/19 at 17:45 Amlodipine Besylate (Norvasc) 5 mg DAILY PO Last administered on 12/03/19at 07:49; Start 11/29/19 at 09:00; Stop 12/04/19 at 00:25; Status DC Aspirin (Aspirin Chewable) 81 mg DAILY PO Last administered on 12/15/19at 08:50; Start 11/29/19 at 09:00 Furosemide (Lasix) 20 mg DAILY PO Last administered on 12/01/19at 08:19; Start 11/29/19 at 09:00; Stop 12/01/19 at 12:52; Status DC Glipizide (Glucotrol) 2.5 mg DAILY PO Last administered on 11/30/19at 08:44; Start 11/29/19 at 09:00; Stop 12/01/19 at 08:12; Status DC Acetaminophen/ Hydrocodone Bitart (Lortab 5/325) 1 tab PRN Q6HRS PRN PO PAIN; Start 11/28/19 at 17:45; Status UNV Lisinopril (Prinivil) 40 mg DAILY PO Last administered on 12/01/19at 08:19; Start 11/29/19 at 09:00; Stop 12/01/19 at 12:52; Status DC Tamsulosin HCl (Flomax) 0.4 mg DAILY PO Last administered on 12/15/19at 08:50; Start 11/29/19 at 09:00 Hydrochlorothiazide (Hydrodiuril) 25 mg DAILY PO Last administered on 12/01/19at 08:17; Start 11/29/19 at 09:00; Stop 12/01/19 at 12:52; Status DC Cyclobenzaprine HCl (Flexeril) 10 mg TID PO Last administered on 11/30/19at 22:16; Start 11/28/19 at 21:00; Stop 12/02/19 at 06:46; Status DC Magnesium Sulfate 50 ml @ 25 mls/hr 1X ONCE IV Last administered on 11/28/19at 19:10; Start 11/28/19 at 19:00; Stop 11/28/19 at 20:59; Status DC Zinc Sulfate (Orazinc) 220 mg DAILY PO Last administered on 12/15/19 08:50; Start 11/29/19 at 09:00 Ascorbic Acid (Vitamin C) 500 mg Q6HRS PO Last administered on 12/04/19at 11:48; Start 11/29/19 at 00:00; Stop 12/04/19 at 14:58; Status DC Vitamin D (Vitamin D3) 1,000 unit BID PO Last administered on 12/15/19at 08:50; Start 11/28/19 at 21:00 Atorvastatin Calcium (Lipitor) 40 mg QHS PO Last administered on 12/14/19at 20:34; Start 11/28/19 at 21:00 Enoxaparin Sodium (Lovenox 80mg Syringe) 80 mg 1X ONCE SQ Last administered on 11/28/19at 19:10; Start 11/28/19 at 19:00; Stop 11/28/19 at 19:01; Status DC Enoxaparin Sodium (Lovenox 40mg Syringe) 40 mg Q12HR SQ Last administered on 11/29/19at 20:52; Start 11/29/19 at 09:00; Stop 11/30/19 at 10:00; Status DC Thiamine HCl 200 mg/Dextrose 52 ml @ 102 mls/hr Q12HR IV Last administered on 12/04/19at 09:23; Start 11/28/19 at 19:30; Stop 12/04/19 at 14:59; Status DC Potassium Chloride (Klor-Con) 40 meq 1X ONCE PO Last administered on 11/29/19at 17:15; Start 11/29/19 at 16:45; Stop 11/29/19 at 16:46; Status DC Methylprednisolone Sodium Succinate (SOLU-Medrol 125MG VIAL) 60 mg Q8HRS IV Last administered on 12/03/19at 05:38; Start 11/30/19 at 09:00; Stop 12/03/19 at 10:50; Status DC Piperacillin Sod/ Tazobactam Sod (Zosyn Per Pharmacy) 1 each PRN DAILY PRN MC SEE COMMENTS; Start 11/30/19 at 08:45; Stop 12/10/19 at 17:04; Status DC Piperacillin Sod/ Tazobactam Sod 3.375 gm/Sodium Chloride 50 ml @ 100 mls/hr Q6HRS IV Last administered on 12/10/19at 12:07; Start 11/30/19 at 12:00; Stop 12/10/19 at 17:03; Status DC Heparin Sodium (Porcine) (Heparin Sodium) 5,000 unit Q8HRS SQ Last administered on 12/07/19at 06:09; Start 11/30/19 at 14:00; Stop 12/07/19 at 11:13; Status DC Sterile Water (WATER for RESP) 1,000 ml CONT PRN INH VIA VAPOTHERM DEVICE Last administered on 12/07/19at 15:37; Start 11/30/19 at 17:30 Insulin Glargine (Lantus Syringe) 20 unit BID SQ Last administered on 12/01/19at 12:30; Start 12/01/19 at 12:30; Stop 12/01/19 at 17:33; Status DC Insulin Human Lispro (HumaLOG) 0-9 UNITS TIDWMEALS SQ Last administered on 12/01/19at 17:33; Start 12/01/19 at 12:30; Stop 12/01/19 at 21:03; Status DC Dextrose (Dextrose 50%-Water Syringe) 12.5 gm PRN Q15MIN PRN IV SEE COMMENTS; Start 12/01/19 at 12:15 Sodium Chloride 1,000 ml @ 75 mls/hr 1X ONCE IV Last administered on 12/01/19at 12:58; Start 12/01/19 at 13:00; Stop 12/02/19 at 02:19; Status DC Insulin Glargine (Lantus Syringe) 30 unit BID SQ Last administered on 12/15/19at 08:51; Start 12/01/19 at 21:00 Insulin Human Lispro (HumaLOG) 10 units TIDWMEALS SQ Last administered on 12/01/19at 17:49; Start 12/01/19 at 17:45; Stop 12/01/19 at 21:04; Status DC Insulin Human Lispro (HumaLOG) 0-9 UNITS QIDACHS SQ Last administered on 12/06/19at 21:35; Start 12/02/19 at 07:30; Stop 12/08/19 at 13:39; Status DC Insulin Human Lispro (HumaLOG) 15 units TIDWMEALS SQ Last administered on 12/06/19at 17:31; Start 12/02/19 at 08:00; Stop 12/08/19 at 13:39; Status DC Insulin Human Lispro (HumaLOG) 9 units 1X ONCE SQ Last administered on 12/01/19at 21:16; Start 12/01/19 at 21:30; Stop 12/01/19 at 21:31; Status DC Cyclobenzaprine HCl (Flexeril) 10 mg PRN TID PRN PO MUSCLE SPASMS Last administered on 12/06/19at 20:16; Start 12/02/19 at 06:45 Furosemide (Lasix) 20 mg 1X ONCE IVP ; Start 12/02/19 at 10:15; Stop 12/02/19 at 10:47; Status DC Furosemide (Lasix) 40 mg 1X ONCE IVP Last administered on 12/02/19at 11:09; Start 12/02/19 at 10:45; Stop 12/02/19 at 10:51; Status DC Sodium Chloride 1,000 ml @ 75 mls/hr [id number] IV Last administered on 12/07/19at 23:32; Start 12/02/19 at 14:30; Stop 12/08/19 at 14:44; Status DC Lactobacillus Rhamnosus (Culturelle) 1 cap BID PO Last administered on 12/15/19 08:50; Start 12/02/19 at 21:00 Methylprednisolone Sodium Succinate (SOLU-Medrol 40MG VIAL) 40 mg Q8HRS IV Last administered on 12/15/19at 06:17; Start 12/03/19 at 14:00 Famotidine (Pepcid Vial) 20 mg DAILY IVP Last administered on 12/14/19at 08:26; Start 12/04/19 at 09:00; Stop 12/15/19 at 07:41; Status DC Amlodipine Besylate (Norvasc) 10 mg DAILY PO Last administered on 12/06/19at 07:58; Start 12/04/19 at 09:00; Stop 12/06/19 at 18:39; Status DC Hydralazine HCl (Apresoline Inj) 10 mg PRN Q15MIN PRN IVP ELEVATED BP, SEE COMMENTS Last administered on 12/06/19at 10:41; Start 12/04/19 at 00:30; Stop 12/06/19 at 15:23; Status DC Ascorbic Acid (Vitamin C) 500 mg BID PO Last administered on 12/15/19 08:50; Start 12/04/19 at 21:00 Thiamine Mononitrate (Vitamin B-1) 100 mg BID PO Last administered on 12/15/19at 08:50; Start 12/04/19 at 21:00 Furosemide (Lasix) 40 mg 1X ONCE IVP Last administered on 12/05/19at 11:39; Start 12/05/19 at 11:15; Stop 12/05/19 at 11:16; Status DC Metoprolol Tartrate (Lopressor) 25 mg PRN BID PRN PO TACHYCARDIA; Start 12/05/19 at 22:30; Status Cancel Haloperidol Lactate (Haldol Inj) 2.5 mg PRN Q6HRS PRN IVP Anxiety (2ND CHOICE) Last administered on 12/07/19at 03:19; Start 12/06/19 at 10:45 Furosemide (Lasix) 40 mg 1X ONCE IVP Last administered on 12/06/19at 12:50; Start 12/06/19 at 12:30; Stop 12/06/19 at 12:31; Status DC Hydralazine HCl (Apresoline Inj) 20 mg PRN Q4HRS PRN IVP ELEVATED BP, SEE COMMENTS Last administered on 12/14/19at 22:58; Start 12/06/19 at 15:30 Nicardipine HCl 50 mg/Sodium Chloride 250 ml @ 25 mls/hr CONT PRN IV SEE I/O RECORD Last administered on 12/10/19at 10:28; Start 12/06/19 at 18:45 Dexmedetomidine HCl 400 mcg/ Sodium Chloride 100 ml @ 7.23 mls/hr CONT PRN IV SEE COMMENTS Last administered on 12/07/19at 12:52; Start 12/07/19 at 07:30 Sodium Chloride 500 ml @ 500 mls/hr 1X PRN PRN IV SEE COMMENTS; Start 12/07/19 at 07:30; Stop 12/12/19 at 12:53; Status DC Atropine Sulfate (ATROPINE 0.5mg SYRINGE) 0.5 mg PRN Q5MIN PRN IV SEE COMMENTS; Start 12/07/19 at 07:30 Diltiazem HCl (Cardizem Iv Push) 10 mg 1X ONCE IVP Last administered on 12/07/19at 09:13; Start 12/07/19 at 09:00; Stop 12/07/19 at 09:01; Status DC Diltiazem HCl 125 mg/Sodium Chloride 125 ml @ 5 mls/hr CONT PRN IV SEE I/O RECORD Last administered on 12/07/19at 09:33; Start 12/07/19 at 09:00 Magnesium Sulfate 50 ml @ 25 mls/hr 1X ONCE IV Last administered on 12/07/19at 11:05; Start 12/07/19 at 09:45; Stop 12/07/19 at 11:44; Status DC Heparin Sodium/ Dextrose 250 ml @ 20 mls/hr CONT PRN IV PER PROTOCOL Last administered on 12/13/19at 22:25; Start 12/07/19 at 10:45; Stop 12/14/19 at 10:26; Status DC Heparin Sodium (Porcine) (Heparin Sodium) 4,350 unit PRN Q6HRS PRN IV FOR UFH LEVEL LESS THAN 0.2 Last administered on 12/10/19at 07:33; Start 12/07/19 at 10:45; Stop 12/14/19 at 10:26; Status DC Heparin Sodium (Porcine) (Heparin Sodium) 2,150 unit PRN Q6HRS PRN IV FOR UFH LEVEL 0.2 - 0.29 Last administered on 12/11/19at 06:29; Start 12/07/19 at 10:45; Stop 12/14/19 at 10:26; Status DC Fentanyl Citrate 30 ml @ 0 mls/hr CONT PRN IV SEE PROTOCOL; Start 12/07/19 at 19:45; Stop 12/07/19 at 21:23; Status DC Fentanyl Citrate (Fentanyl 2ml Vial) 25 mcg PRN Q1HR PRN IV SEE COMMENTS; Start 12/07/19 at 19:45 Fentanyl Citrate (Fentanyl 2ml Vial) 50 mcg PRN Q1HR PRN IV SEE COMMENTS; Start 12/07/19 at 19:45 Midazolam HCl 100 ml @ 0 mls/hr CONT PRN IV SEE PROTOCOL Last administered on 12/15/19at 06:22; Start 12/07/19 at 19:45 Propofol 100 ml @ 0 mls/hr CONT PRN IV SEE PROTOCOL Last administered on 12/15/19at 04:23; Start 12/07/19 at 20:00 Fentanyl Citrate 55 ml @ 0 mls/hr CONT PRN PRN IV PAIN/SEDATION Last adm inistered on 12/15/19at 04:58; Start 12/07/19 at 21:30 Atropine Sulfate (ATROPINE 1mg SYRINGE) 1 mg STK-MED ONCE .ROUTE ; Start at 09:07; Stop 12/08/19 at 09:07; Status DC Epinephrine HCl (EPINEPHrine SYRINGE) 1 mg 1X ONCE IV Last administered on 12/08/19at 08:19; Start 12/08/19 at 09:45; Stop 12/08/19 at 09:50; Status DC Non-Formulary Medication 1 ea/ Sodium Chloride 210 ml @ 210 mls/hr 1X ONCE IV Last administered on 12/08/19at 13:12; Start 12/08/19 at 12:00; Stop 12/08/19 at 12:59; Status DC Non-Formulary Medication 1 ea/ Sodium Chloride 230 ml @ 460 mls/hr Q24H IV Last administered on 12/12/19at 11:42; Start 12/09/19 at 12:00; Stop 12/12/19 at 12:29; Status DC Insulin Human Lispro (HumaLOG) 0-9 UNITS Q6HRS SQ Last administered on 12/13/19at 06:05; Start 12/08/19 at 18:00 Etomidate (Amidate) 20 mg STK-MED ONCE IV ; Start 12/07/19 at 12:00; Stop 12/09/19 at 08:48; Status DC Succinylcholine Chloride (Anectine) 200 mg STK-MED ONCE .ROUTE ; Start 12/07/19 at 12:00; Stop 12/09/19 at 08:49; Status DC Ephedrine Sulfate (ePHEDrine PF IN SALINE SYRINGE) 50 mg STK-MED ONCE IV ; Start 12/07/19 at 12:00; Stop 12/09/19 at 08:49; Status DC Phenylephrine HCl (PHENYLEPHRINE in 0.9% NACL PF) 1 mg STK-MED ONCE IV ; Start 12/07/19 at 12:00; Stop 12/09/19 at 08:49; Status DC Propofol (Diprivan) 200 mg STK-MED ONCE IV ; Start 12/07/19 at 12:00; Stop 12/09/19 at 08:49; Status DC Epinephrine HCl (EPINEPHrine SYRINGE) 2 mg STK-MED ONCE .ROUTE ; Start 12/08/19 at 09:30; Stop 12/09/19 at 09:05; Status DC Atropine Sulfate (ATROPINE 1mg SYRINGE) 1 mg STK-MED ONCE .ROUTE ; Start 12/08/19 at 09:30; Stop 12/09/19 at 09:05; Status DC Info (Anti-Coagulation Monitoring By Pharmacy) 1 each PRN DAILY PRN MC SEE COMMENTS Last administered on 12/13/19at 13:41; Start 12/09/19 at 13:00; Stop 12/14/19 at 12:25; Status DC Furosemide (Lasix) 40 mg 1X ONCE IVP Last administered on 12/09/19at 14:30; Start 12/09/19 at 14:30; Stop 12/09/19 at 14:31; Status DC Vecuronium [place] 50 mg/ Miscellaneous 50 ml @ 7.598 mls/ hr CONT PRN IV SEE I/O RECORD Last administered on 12/13/19at 02:21; Start 12/10/19 at 21:00 Vecuron[place] (Norcuron Bolus) 8 mg PRN Q2HR PRN IV SEDATION Last administered on 12/12/19at 00:59; Start 12/10/19 at 21:00 Sodium Chloride 500 ml @ 999 mls/hr Q31M IV Last administered on 12/12/19at 11:31; Start 12/12/19 at 11:00; Stop 12/12/19 at 12:53; Status DC Lidocaine HCl (Buffered Lidocaine 1%) 3 ml STK-MED ONCE .ROUTE ; Start 12/12/19 at 11:36; Stop 12/12/19 at 11:37; Status DC Lidocaine HCl (Buffered Lidocaine 1%) 3 ml 1X ONCE INJ Last administered on 12/12/19at 12:45; Start 12/12/19 at 12:45; Stop 12/12/19 at 12:49; Status DC Info (Tpn Per Pharmacy) 1 each PRN DAILY PRN MC SEE COMMENTS; Start 12/14/19 at 16:45 Amino Acids/ Glycerin/ Electrolytes 1,000 ml @ 80 mls/hr [id number] IV Last adm inistered on 12/15/19at 06:24; Start 12/14/19 at 17:30; Stop 12/15/19 at 08:25; Status DC Pantoprazole Sodium (PROTONIX VIAL for IV PUSH) 40 mg DAILYAC IVP Last administered on 12/15/19at 08:51; Start 12/15/19 at 07:45 Active Scripts Active [place] 5-325 Tablet (Acetaminophen/Hydrocodone Bitart) 1 Each Tablet 1 Tab PO PRN Q6HRS PRN Orphenadrine Citrate 100 Mg Tablet.er 1 Tab PO BID Amlodipine Besylate 5 Mg Tablet 5 Mg PO DAILY Reported Lisinopril 40 Mg Tablet 40 Mg PO DAILY Glipizide 5 Mg Tablet 2.5 Mg PO DAILY Hydrochlorothiazide Tablet (Hydrochlorothiazide) 12.5 Mg Tablet 25 Mg PO DAILY Furosemide 20 Mg Tablet 20 Mg PO DAILY Tamsulosin Hcl 0.4 Mg Cap.er.24h 1 Cap PO DAILY Aspirin 81 Mg Tab.chew 81 Mg PO DAILY Metformin Hcl 500 Mg Tablet 500 Mg PO DAILY Vitals/I & O Vital Sign - Last 24 Hours 12/14/19 12/14/19 12/14/19 12/14/19 10:00 11:00 11:38 12:00 Temp 96.8 96.8 96.8 96.8 Pulse 49 50 Resp 24 24 B/P (MAP) 160/63 (95) 158/64 (95) Pulse Ox 98 99 98 O2 Delivery Ventilator Ventilator Ventilator 12/14/19 12/14/19 12/14/19 12/14/19 12:00 12:00 13:00 14:00 Temp 96.8 96.8 97.2 96.8 96.8 97.2 Pulse 49 48 52 Resp 24 24 24 B/P (MAP) 157/61 (93) 153/59 (90) 150/60 (90) Pulse Ox 98 98 98 O2 Delivery Mechanical Ventilator Ventilator Ventilator Ventilator 12/14/19 12/14/19 12/14/19 12/14/19 15:00 15:46 15:58 15:58 Temp 97.2 97.2 Pulse 50 Resp 24 B/P (MAP) 152/60 (90) Pulse Ox 98 99 O2 Delivery Ventilator Ventilator Mechanical Ventilator 12/14/19 12/14/19 12/14/19 12/14/19 15:58 17:00 17:00 17:34 Temp 97.2 97.2 97.2 97.2 Pulse 50 53 Resp 24 24 B/P (MAP) 172/66 (101) 161/66 (97) Pulse Ox 98 98 97 98 O2 Delivery Ventilator Ventilator Ventilator Ventilator 12/14/19 12/14/19 12/14/19 12/14/19 18:00 19:00 20:00 20:00 Temp 97.2 97.3 97.2 97.3 Pulse 51 50 50 Resp 24 24 B/P (MAP) 168/64 (98) 157/60 (92) 158/62 (94) Pulse Ox 97 97 O2 Delivery Ventilator Ventilator Mechanical Ventilator 12/14/19 12/14/19 12/14/19 12/14/19 20:00 20:26 21:00 22:00 Temp 97.2 97.2 97.2 97.2 97.2 97.2 Pulse 50 52 60 Resp 24 24 24 B/P (MAP) 158/62 (94) 164/60 (94) 186/66 (106) Pulse Ox 97 96 97 98 O2 Delivery Ventilator Ventilator Ventilator Ventilator 9/6/20 9/6/20 9/7/20 9/7/20 22:58 23:00 00:00 00:00 Temp 97.2 97.2 Pulse 62 60 60 Resp 24 B/P (MAP) 202/76 174/60 (98) 166/54 (91) Pulse Ox 96 O2 Delivery Ventilator Mechanical Ventilator 12/15/19 12/15/19 12/15/19 12/15/19 00:00 00:16 01:00 02:00 Temp 97.2 97.2 97.2 97.2 97.2 97.2 Pulse 60 70 64 Resp 24 24 B/P (MAP) 166/54 (91) 167/53 (91) 148/56 (86) Pulse Ox 96 95 95 96 O2 Delivery Ventilator Ventilator Ventilator Ventilator 12/15/19 12/15/19 12/15/19 12/15/19 03:00 04:00 04:00 04:00 Temp 97.5 97.5 97.5 97.5 Pulse 66 64 64 Resp 24 B/P (MAP) 164/56 (92) 156/56 (89) 156/56 (89) Pulse Ox 96 98 O2 Delivery Ventilator Ventilator Mechanical Ventilator 12/15/19 12/15/19 12/15/19 12/15/19 04:43 05:00 06:00 07:00 Temp 97.7 97.7 97.5 97.7 97.7 97.5 Pulse 62 60 57 Resp 24 24 B/P (MAP) 156/57 (90) 141/53 (82) 128/60 (82) Pulse Ox 97 98 99 99 O2 Delivery Ventilator Ventilator Ventilator Ventilator 12/15/19 12/15/19 08:00 08:00 B/P (MAP) O2 Delivery Mechanical Ventilator Intake and Output 12/14/19 12/14/19 12/15/19 15:00 23:00 07:00 Intake Total 49 ml 278 ml 1164 ml Output Total 800 ml 775 ml 715 ml Balance -751 ml -497 ml 449 ml Justicifation of Admission Dx: Justifications for Admission: Justification of Admission Dx: Yes Sepsis: Hypoxemia RAN GONZAELS MD Dec 15, 2019 09:38
[2019-12-15] MEDS: TPN PER PHARMACY MC PRN (11:33)
--- NOTE | 2019-12-15 11:33 | NUR ---
Pharmacy TPN Dosing Note S: THA FORBES is a 69 year old M Currently receiving Central Continuous TPN started 12/15/19 B:Pertinent PMH: COFFEE GROUND GASTRIC CONTENT Height: 6 feet, 0 inches Weight: 163.4 kg Current diet: NPO LABS: Sodium: 145 Potassium: 5.9 Chloride: 111 Calcium: 8.5 Corrected Calcium: 10.58 Magnesium: 2.4 CO2: 28 SCr: 1.7 Glucose: 152 Albumin: 1.4 AST: 31 ALT: 64 TPN FORMULA: TPN TYPE: Central Continuous AMINO ACIDS: 60 gm DEXTROSE: 195 gm LIPIDS: - gm SODIUM CHLORIDE: - mEq SODIUM ACETATE: mEq SODIUM PHOSPHATE: mmol POTASSIUM CHLORIDE: - mEq POTASSIUM ACETATE: mEq POTASSIUM PHOSPHATE: - mmol MAGNESIUM: - mEq CALCIUM: - mEq INSULIN: units MULTIPLE VITAMIN: 10 ml TRACE ELEMENTS: 1 ml(s) TPN PLAN: TPN to start due to coffee ground gastric content -On propofol, no lipids added to TPN -Sodium 145, on multiple other Na containing fluids, Na omitted -K 5.9, will exclude potassium -Phos and mag both on upper limit of normal, will not add to TPN for now -Corrected calcium above normal limits, omit Ca -Labs in the am R: Begin TPN as written above. Will monitor electrolytes, glucose, and tolerance to TPN. TOBY HARRIS [facility], 12/15/19 [id number]
[2019-12-15 12:14] LABS: BASE EXCESS ABG 1 mmol/L (-3-3); HCO3 ABG 29 mmol/L (21-28)
[2019-12-15 12:21] LABS: PCO2 ABG 65 mmHg (35-46); PO2 ABG < 42 mmHg (65-108)
[2019-12-15 12:22] LABS: FIO2 ABG 100; SAT O2 ABG 33 % (92-99)
[2019-12-15 12:28] LABS: BASE EXCESS ABG -1 mmol/L (-3-3); HCO3 ABG 24 mmol/L (21-28); PCO2 ABG 44 mmHg (35-46); PO2 ABG 64 mmHg (65-108); SAT O2 ABG 89 % (92-99)
[2019-12-15 12:29] LABS: FIO2 ABG 100
[2019-12-15] MEDS ORDERED: FUROSEMIDE 40 MG/4 ML VIAL. IVP ONE (13:15)
--- NOTE | 2019-12-15 13:43 | RAD ---
AP chest x-ray HISTORY: Status post code, intubated, positive Covid 19 infection. COMPARISON: Chest x-ray December 12, 2019. FINDINGS: Right jugular dual-lumen dialysis catheter tip right atrium. Nasogastric tube extends to the abdomen. There is a separate small caliber catheter density along the right neck with tip terminating along the medial right clavicle and lung apex similar to the prior study although location of this is uncertain and does not follow the expected course of the internal jugular vein, this could be an external jugular venous catheter or could be extravascular. endotracheal tube tip 4 cm above the monet. Heart size normal. No pneumothorax. No pleural effusions. Diffuse pulmonary interstitial and alveolar infiltrates are stable. IMPRESSION: Lines and tubes as described above. There is a small caliber catheter across the right neck similar to prior studies the location of which is indeterminate as described above. Pulmonary interstitial and alveolar infiltrates are stable presumably the sequela of viral pneumonitis or pulmonary edema. Electronically signed by: Jose Luis Tamez MD (12/15/2019 1:40 PM) [id number]
--- NOTE | 2019-12-15 13:53 | PDOC ---
PROGRESS NOTES Date of Service DATE: 12/15/19 TIME: 13:50 Subjective Subjective SEEN IN FOLLOW UP ARF Objective Objective Vital Signs Date Time Temp Pulse Resp B/P (MAP) Pulse Ox O2 Delivery O2 Flow Rate FiO2 12/15/19 13:00 97.3 66 24 141/48 (79) 92 Ventilator 97.3 12/14/19 04:01 35.0 Intake and Output 12/15/19 07:00 Intake Total 1491 ml Output Total 2290 ml Balance -799 ml IV Total 1491 ml Output Urine Total 2290 ml Physical Exam Physical Exam COVID +. NO BEDSIDE EXAM Diagnosis RENAL FAILURE: Acute (Acute tubular necrosis) Assessment Assessment Problems Medical Problems: (1) ARF (acute renal failure) Status: Acute (2) Fever Status: Acute (3) Hypoxemia Status: Acute (4) Sepsis Status: Acute Plan Plan of Care RENAL FUNCTION STABLE IN CKD 3 RANGE. K+ AT 5.9 AND WILL GIVE LASIX. DISCUSSED WITH HIS PER PHONE Comment Review of Relevant I have reviewed the following items bren (where applicable) has been applied. Labs Laboratory Tests Test 12/13/19 17:51 12/13/19 21:56 12/13/19 23:39 12/14/19 05:20 Glucose (Fingerstick) 110 mg/dL (70-99) 108 mg/dL (70-99) 92 mg/dL (70-99) White Blood Count 12.8 x10^3/uL (4.0-11.0) Red Blood Count 3.17 x10^6/uL (4.30-5.70) Hemoglobin 9.3 g/dL (13.0-17.5) Hematocrit 29.7 % (39.0-53.0) Mean Corpuscular Volume 94 fL (79-100) Mean Corpuscular Hemoglobin 29 pg (25-35) Mean Corpuscular Hemoglobin Concent 31 g/dL (31-37) Red Cell Distribution Width 14.8 % (11.5-14.5) Platelet Count 147 x10^3/uL (140-400) Heparin Anti-Xa Act, Unfractionated 0.41 IU/mL (0.30-0.70) Sodium Level 147 mmol/L (136-145) Potassium Level 5.3 mmol/L (3.5-5.1) Chloride Level 112 mmol/L (98-107) Carbon Dioxide Level 28 mmol/L (21-32) Anion Gap 7 (6-14) Blood Urea Nitrogen 69 mg/dL (8-26) Creatinine 1.6 mg/dL (0.7-1.3) Estimated GFR (Cockcroft-Gault) 52.1 Glucose Level 102 mg/dL (70-99) Calcium Level 8.4 mg/dL (8.5-10.1) Test 12/14/19 06:22 12/14/19 08:27 12/14/19 17:37 12/14/19 20:32 Glucose (Fingerstick) 95 mg/dL (70-99) 95 mg/dL (70-99) 112 mg/dL (70-99) O2 Saturation 92 % (92-99) Arterial Blood pH 7.42 (7.35-7.45) Arterial Blood pCO2 at Patient Temp 43 mmHg (35-46) Arterial Blood pO2 at Patient Temp 66 mmHg (65-108) Arterial Blood HCO3 27 mmol/L (21-28) Arterial Blood Base Excess 2 mmol/L (-3-3) FiO2 90 Test 12/15/19 00:13 12/15/19 05:55 12/15/19 06:00 12/15/19 08:00 Glucose (Fingerstick) 131 mg/dL (70-99) 151 mg/dL (70-99) Sodium Level 145 mmol/L (136-145) Potassium Level 5.9 mmol/L (3.5-5.1) Chloride Level 111 mmol/L (98-107) Carbon Dioxide Level 28 mmol/L (21-32) Anion Gap 6 (6-14) Blood Urea Nitrogen 77 mg/dL (8-26) Creatinine 1.7 mg/dL (0.7-1.3) Estimated GFR (Cockcroft-Gault) 48.6 Glucose Level 152 mg/dL (70-99) Calcium Level 8.5 mg/dL (8.5-10.1) Phosphorus Level 4.7 mg/dL (2.6-4.7) Magnesium Level 2.4 mg/dL (1.8-2.4) O2 Saturation 93 % (92-99) Arterial Blood pH 7.38 (7.35-7.45) Arterial Blood pCO2 at Patient Temp 43 mmHg (35-46) Arterial Blood pO2 at Patient Temp 72 mmHg (65-108) Arterial Blood HCO3 25 mmol/L (21-28) Arterial Blood Base Excess -1 mmol/L (-3-3) FiO2 85 Test 12/15/19 12:12 12/15/19 12:25 O2 Saturation 33 % (92-99) 89 % (92-99) Arterial Blood pH 7.26 (7.35-7.45) 7.36 (7.35-7.45) Arterial Blood pCO2 at Patient Temp 65 mmHg (35-46) 44 mmHg (35-46) Arterial Blood pO2 at Patient Temp < 42 mmHg (65-108) 64 mmHg (65-108) Arterial Blood HCO3 29 mmol/L (21-28) 24 mmol/L (21-28) Arterial Blood Base Excess 1 mmol/L (-3-3) -1 mmol/L (-3-3) FiO2 100 100 Laboratory Tests Test 12/14/19 17:37 12/14/19 20:32 12/15/19 00:13 12/15/19 05:55 Glucose (Fingerstick) 95 mg/dL (70-99) 112 mg/dL (70-99) 131 mg/dL (70-99) 151 mg/dL (70-99) Test 12/15/19 06:00 12/15/19 08:00 12/15/19 12:12 12/15/19 12:25 Sodium Level 145 mmol/L (136-145) Potassium Level 5.9 mmol/L (3.5-5.1) Chloride Level 111 mmol/L (98-107) Carbon Dioxide Level 28 mmol/L (21-32) Anion Gap 6 (6-14) Blood Urea Nitrogen 77 mg/dL (8-26) Creatinine 1.7 mg/dL (0.7-1.3) Estimated GFR (Cockcroft-Gault) 48.6 Glucose Level 152 mg/dL (70-99) Calcium Level 8.5 mg/dL (8.5-10.1) Phosphorus Level 4.7 mg/dL (2.6-4.7) Magnesium Level 2.4 mg/dL (1.8-2.4) O2 Saturation 93 % (92-99) 33 % (92-99) 89 % (92-99) Arterial Blood pH 7.38 (7.35-7.45) 7.26 (7.35-7.45) 7.36 (7.35-7.45) Arterial Blood pCO2 at Patient Temp 43 mmHg (35-46) 65 mmHg (35-46) 44 mmHg (35-46) Arterial Blood pO2 at Patient Temp 72 mmHg (65-108) < 42 mmHg (65-108) 64 mmHg (65-108) Arterial Blood HCO3 25 mmol/L (21-28) 29 mmol/L (21-28) 24 mmol/L (21-28) Arterial Blood Base Excess -1 mmol/L (-3-3) 1 mmol/L (-3-3) -1 mmol/L (-3-3) FiO2 85 100 100 Microbiology 12/01/19 Urine Culture - Final, Complete Medications Current Medications Ondansetron HCl (Zofran) 4 mg 1X ONCE IV Last administered on 11/28/19at 16:25; Start 11/28/19 at 15:30; Stop 11/28/19 at 15:36; Status DC Acetaminophen (Tylenol) 1,000 mg 1X ONCE PO Last administered on 11/28/19at 16:25; Start 11/28/19 at 15:45; Stop 11/28/19 at 16:03; Status DC Acetaminophen (Tylenol) 650 mg PRN Q6HRS PRN PO Headaches, Temp > 101.5' Last administered on 11/30/19at 08:45; Start 11/28/19 at 17:45 Lorazepam (Ativan Inj) 0.5 mg PRN Q6HRS PRN IVP ANXIETY / AGITATION Last administered on 12/06/19at 22:50; Start 11/28/19 at 17:45 Ondansetron HCl (Zofran) 4 mg PRN Q6HRS PRN IVP NAUSEA/VOMITING; Start 11/28/19 at 17:45 Famotidine (Pepcid Vial) 20 mg BID IVP Last administered on 12/03/19at 07:48; Start 11/28/19 at 21:00; Stop 12/03/19 at 15:24; Status DC Info (Icu Electrolyte Protocol) 1 ea DAILY MC ; Start 11/29/19 at 09:00; Stop 11/28/19 at 18:16; Status DC Enoxaparin Sodium (Lovenox 40mg Syringe) 150 mg Q12HR SQ ; Start 11/28/19 at 21:00; Stop 11/28/19 at 18:16; Status DC Sodium Chloride (Normal Saline Flush) 3 ml QSHIFT PRN IV AFTER MEDS AND BLOOD DRAWS; Start 11/28/19 at 17:45 Acetaminophen/ Hydrocodone Bitart (Lortab 5/325) 1 tab PRN Q4HRS PRN PO MILD PAIN, 2ND CHOICE; Start 11/28/19 at 17:45 Morphine Sulfate (Morphine Sulfate) 1 mg PRN Q1HR PRN IV PAIN; Start 11/28/19 at 17:45; Stop 12/10/19 at 01:00; Status DC Senna/Docusate Sodium (Senna Plus) 1 tab BID PO Last administered on 12/15/19at 08:50; Start 11/28/19 at 21:00 Lactulose (Lactulose) 20 gm PRN Q12HR PRN PO CONSTIPATION Last administered on 12/15/19at 08:51; Start 11/28/19 at 17:45 Amlodipine Besylate (Norvasc) 5 mg DAILY PO Last administered on 12/03/19at 07:49; Start 11/29/19 at 09:00; Stop 12/04/19 at 00:25; Status DC Aspirin (Aspirin Chewable) 81 mg DAILY PO Last administered on 12/15/19at 08:50; Start 11/29/19 at 09:00 Furosemide (Lasix) 20 mg DAILY PO Last administered on 12/01/19at 08:19; Start 11/29/19 at 09:00; Stop 12/01/19 at 12:52; Status DC Glipizide (Glucotrol) 2.5 mg DAILY PO Last administered on 11/30/19at 08:44; Start 11/29/19 at 09:00; Stop 12/01/19 at 08:12; Status DC Acetaminophen/ Hydrocodone Bitart (Lortab 5/325) 1 tab PRN Q6HRS PRN PO PAIN; Start 11/28/19 at 17:45; Status UNV Lisinopril (Prinivil) 40 mg DAILY PO Last administered on 12/01/19at 08:19; Start 11/29/19 at 09:00; Stop 12/01/19 at 12:52; Status DC Tamsulosin HCl (Flomax) 0.4 mg DAILY PO Last administered on 12/15/19 08:50; Start 11/29/19 at 09:00 Hydrochlorothiazide (Hydrodiuril) 25 mg DAILY PO Last administered on 12/01/19at 08:17; Start 11/29/19 at 09:00; Stop 12/01/19 at 12:52; Status DC Cyclobenzaprine HCl (Flexeril) 10 mg TID PO Last administered on 11/30/19at 22:16; Start 11/28/19 at 21:00; Stop 12/02/19 at 06:46; Status DC Magnesium Sulfate 50 ml @ 25 mls/hr 1X ONCE IV Last administered on 11/28/19at 19:10; Start 11/28/19 at 19:00; Stop 11/28/19 at 20:59; Status DC Zinc Sulfate (Orazinc) 220 mg DAILY PO Last administered on 12/15/19 08:50; Start 11/29/19 at 09:00 Ascorbic Acid (Vitamin C) 500 mg Q6HRS PO Last administered on 12/04/19at 11:48; Start 11/29/19 at 00:00; Stop 12/04/19 at 14:58; Status DC Vitamin D (Vitamin D3) 1,000 unit BID PO Last administered on 12/15/19at 08:50; Start 11/28/19 at 21:00 Atorvastatin Calcium (Lipitor) 40 mg QHS PO Last administered on 12/14/19at 20:34; Start 11/28/19 at 21:00 Enoxaparin Sodium (Lovenox 80mg Syringe) 80 mg 1X ONCE SQ Last administered on 11/28/19at 19:10; Start 11/28/19 at 19:00; Stop 11/28/19 at 19:01; Status DC Enoxaparin Sodium (Lovenox 40mg Syringe) 40 mg Q12HR SQ Last administered on 11/29/19at 20:52; Start 11/29/19 at 09:00; Stop 11/30/19 at 10:00; Status DC Thiamine HCl 200 mg/Dextrose 52 ml @ 102 mls/hr Q12HR IV Last administered on 12/04/19at 09:23; Start 11/28/19 at 19:30; Stop 12/04/19 at 14:59; Status DC Potassium Chloride (Klor-Con) 40 meq 1X ONCE PO Last administered on 11/29/19at 17:15; Start 11/29/19 at 16:45; Stop 11/29/19 at 16:46; Status DC Methylprednisolone Sodium Succinate (SOLU-Medrol 125MG VIAL) 60 mg Q8HRS IV Last administered on 12/03/19at 05:38; Start 11/30/19 at 09:00; Stop 12/03/19 at 10:50; Status DC Piperacillin Sod/ Tazobactam Sod (Zosyn Per Pharmacy) 1 each PRN DAILY PRN MC SEE COMMENTS; Start 11/30/19 at 08:45; Stop 12/10/19 at 17:04; Status DC Piperacillin Sod/ Tazobactam Sod 3.375 gm/Sodium Chloride 50 ml @ 100 mls/hr Q6HRS IV Last administered on 12/10/19at 12:07; Start 11/30/19 at 12:00; Stop 12/10/19 at 17:03; Status DC Heparin Sodium (Porcine) (Heparin Sodium) 5,000 unit Q8HRS SQ Last administered on 12/07/19at 06:09; Start 11/30/19 at 14:00; Stop 12/07/19 at 11:13; Status DC Sterile Water (WATER for RESP) 1,000 ml CONT PRN INH VIA VAPOTHERM DEVICE Last administered on 12/07/19at 15:37; Start 11/30/19 at 17:30 Insulin Glargine (Lantus Syringe) 20 unit BID SQ Last administered on 12/01/19at 12:30; Start 12/01/19 at 12:30; Stop 12/01/19 at 17:33; Status DC Insulin Human Lispro (HumaLOG) 0-9 UNITS TIDWMEALS SQ Last administered on 12/01/19at 17:33; Start 12/01/19 at 12:30; Stop 12/01/19 at 21:03; Status DC Dextrose (Dextrose 50%-Water Syringe) 12.5 gm PRN Q15MIN PRN IV SEE COMMENTS; Start 12/01/19 at 12:15 Sodium Chloride 1,000 ml @ 75 mls/hr 1X ONCE IV Last administered on 12/01/19at 12:58; Start 12/01/19 at 13:00; Stop 12/02/19 at 02:19; Status DC Insulin Glargine (Lantus Syringe) 30 unit BID SQ Last administered on 12/15/19at 08:51; Start 12/01/19 at 21:00 Insulin Human Lispro (HumaLOG) 10 units TIDWMEALS SQ Last administered on 12/01/19at 17:49; Start 12/01/19 at 17:45; Stop 12/01/19 at 21:04; Status DC Insulin Human Lispro (HumaLOG) 0-9 UNITS QIDACHS SQ Last administered on 12/06/19at 21:35; Start 12/02/19 at 07:30; Stop 12/08/19 at 13:39; Status DC Insulin Human Lispro (HumaLOG) 15 units TIDWMEALS SQ Last administered on 12/06/19at 17:31; Start 12/02/19 at 08:00; Stop 12/08/19 at 13:39; Status DC Insulin Human Lispro (HumaLOG) 9 units 1X ONCE SQ Last administered on 12/01/19at 21:16; Start 12/01/19 at 21:30; Stop 12/01/19 at 21:31; Status DC Cyclobenzaprine HCl (Flexeril) 10 mg PRN TID PRN PO MUSCLE SPASMS Last administered on 12/06/19at 20:16; Start 12/02/19 at 06:45 Furosemide (Lasix) 20 mg 1X ONCE IVP ; Start 12/02/19 at 10:15; Stop 12/02/19 at 10:47; Status DC Furosemide (Lasix) 40 mg 1X ONCE IVP Last administered on 12/02/19at 11:09; Start 12/02/19 at 10:45; Stop 12/02/19 at 10:51; Status DC Sodium Chloride 1,000 ml @ 75 mls/hr [id number] IV Last administered on 12/07/19at 23:32; Start 12/02/19 at 14:30; Stop 12/08/19 at 14:44; Status DC Lactobacillus Rhamnosus (Culturelle) 1 cap BID PO Last administered on 12/15/19at 08:50; Start 12/02/19 at 21:00 Methylprednisolone Sodium Succinate (SOLU-Medrol 40MG VIAL) 40 mg Q8HRS IV Last administered on 12/15/19at 13:47; Start 12/03/19 at 14:00 Famotidine (Pepcid Vial) 20 mg DAILY IVP Last administered on 12/14/19 08:26; Start 12/04/19 at 09:00; Stop 12/15/19 at 07:41; Status DC Amlodipine Besylate (Norvasc) 10 mg DAILY PO Last administered on 12/06/19at 07:58; Start 12/04/19 at 09:00; Stop 12/06/19 at 18:39; Status DC Hydralazine HCl (Apresoline Inj) 10 mg PRN Q15MIN PRN IVP ELEVATED BP, SEE COMMENTS Last administered on 12/06/19at 10:41; Start 12/04/19 at 00:30; Stop 12/06/19 at 15:23; Status DC Ascorbic Acid (Vitamin C) 500 mg BID PO Last administered on 12/15/19at 08:50; Start 12/04/19 at 21:00 Thiamine Mononitrate (Vitamin B-1) 100 mg BID PO Last administered on 12/15/19at 08:50; Start 12/04/19 at 21:00 Furosemide (Lasix) 40 mg 1X ONCE IVP Last administered on 12/05/19at 11:39; Start 12/05/19 at 11:15; Stop 12/05/19 at 11:16; Status DC Metoprolol Tartrate (Lopressor) 25 mg PRN BID PRN PO TACHYCARDIA; Start 12/05/19 at 22:30; Status Cancel Haloperidol Lactate (Haldol Inj) 2.5 mg PRN Q6HRS PRN IVP Anxiety (2ND CHOICE) Last administered on 12/07/19at 03:19; Start 12/06/19 at 10:45 Furosemide (Lasix) 40 mg 1X ONCE IVP Last administered on 12/06/19at 12:50; Start 12/06/19 at 12:30; Stop 12/06/19 at 12:31; Status DC Hydralazine HCl (Apresoline Inj) 20 mg PRN Q4HRS PRN IVP ELEVATED BP, SEE COMMENTS Last administered on 12/14/19at 22:58; Start 12/06/19 at 15:30 Nicardipine HCl 50 mg/Sodium Chloride 250 ml @ 25 mls/hr CONT PRN IV SEE I/O RECORD Last administered on 12/10/19at 10:28; Start 12/06/19 at 18:45 Dexmedetomidine HCl 400 mcg/ Sodium Chloride 100 ml @ 7.23 mls/hr CONT PRN IV SEE COMMENTS Last administered on 12/07/19at 12:52; Start 12/07/19 at 07:30 Sodium Chloride 500 ml @ 500 mls/hr 1X PRN PRN IV SEE COMMENTS; Start 12/07/19 at 07:30; Stop 12/12/19 at 12:53; Status DC Atropine Sulfate (ATROPINE 0.5mg SYRINGE) 0.5 mg PRN Q5MIN PRN IV SEE COMMENTS; Start 12/07/19 at 07:30 Diltiazem HCl (Cardizem Iv Push) 10 mg 1X ONCE IVP Last administered on 12/07/19at 09:13; Start 12/07/19 at 09:00; Stop 12/07/19 at 09:01; Status DC Diltiazem HCl 125 mg/Sodium Chloride 125 ml @ 5 mls/hr CONT PRN IV SEE I/O RECORD Last administered on 12/07/19at 09:33; Start 12/07/19 at 09:00 Magnesium Sulfate 50 ml @ 25 mls/hr 1X ONCE IV Last administered on 12/07/19at 11:05; Start 12/07/19 at 09:45; Stop 12/07/19 at 11:44; Status DC Heparin Sodium/ Dextrose 250 ml @ 20 mls/hr CONT PRN IV PER PROTOCOL Last administered on 12/13/19at 22:25; Start 12/07/19 at 10:45; Stop 12/14/19 at 10:26; Status DC Heparin Sodium (Porcine) (Heparin Sodium) 4,350 unit PRN Q6HRS PRN IV FOR UFH LEVEL LESS THAN 0.2 Last administered on 12/10/19at 07:33; Start 12/07/19 at 10:45; Stop 12/14/19 at 10:26; Status DC Heparin Sodium (Porcine) (Heparin Sodium) 2,150 unit PRN Q6HRS PRN IV FOR UFH LEVEL 0.2 - 0.29 Last administered on 12/11/19at 06:29; Start 12/07/19 at 10:45; Stop 12/14/19 at 10:26; Status DC Fentanyl Citrate 30 ml @ 0 mls/hr CONT PRN IV SEE PROTOCOL; Start 12/07/19 at 19:45; Stop 12/07/19 at 21:23; Status DC Fentanyl Citrate (Fentanyl 2ml Vial) 25 mcg PRN Q1HR PRN IV SEE COMMENTS; Start 12/07/19 at 19:45 Fentanyl Citrate (Fentanyl 2ml Vial) 50 mcg PRN Q1HR PRN IV SEE COMMENTS; Start 12/07/19 at 19:45 Midazolam HCl 100 ml @ 0 mls/hr CONT PRN IV SEE PROTOCOL Last administered on 12/15/19at 06:22; Start 12/07/19 at 19:45 Propofol 100 ml @ 0 mls/hr CONT PRN IV SEE PROTOCOL Last administered on 12/15/19at 04:23; Start 12/07/19 at 20:00 Fentanyl Citrate 55 ml @ 0 mls/hr CONT PRN PRN IV PAIN/SEDATION Last ad ministered on 12/15/19at 04:58; Start 12/07/19 at 21:30 Atropine Sulfate (ATROPINE 1mg SYRINGE) 1 mg STK-MED ONCE .ROUTE ; Start 12/08/19 at 09:07; Stop 12/08/19 at 09:07; Status DC Epinephrine HCl (EPINEPHrine SYRINGE) 1 mg 1X ONCE IV Last administered on 12/08/19at 08:19; Start 12/08/19 at 09:45; Stop 12/08/19 at 09:50; Status DC Non-Formulary Medication 1 ea/ Sodium Chloride 210 ml @ 210 mls/hr 1X ONCE IV Last administered on 12/08/19at 13:12; Start 12/08/19 at 12:00; Stop 12/08/19 at 12:59; Status DC Non-Formulary Medication 1 ea/ Sodium Chloride 230 ml @ 460 mls/hr Q24H IV Last administered on 12/12/19at 11:42; Start 12/09/19 at 12:00; Stop 12/12/19 at 12:29; Status DC Insulin Human Lispro (HumaLOG) 0-9 UNITS Q6HRS SQ Last administered on 12/13/19at 06:05; Start 12/08/19 at 18:00 Etomidate (Amidate) 20 mg STK-MED ONCE IV ; Start 12/07/19 at 12:00; Stop 12/09/19 at 08:48; Status DC Succinylcholine Chloride (Anectine) 200 mg STK-MED ONCE .ROUTE ; Start 12/07/19 at 12:00; Stop 12/09/19 at 08:49; Status DC Ephedrine Sulfate (ePHEDrine PF IN SALINE SYRINGE) 50 mg STK-MED ONCE IV ; Start 12/07/19 at 12:00; Stop 12/09/19 at 08:49; Status DC Phenylephrine HCl (PHENYLEPHRINE in 0.9% NACL PF) 1 mg STK-MED ONCE IV ; Start 12/07/19 at 12:00; Stop 12/09/19 at 08:49; Status DC Propofol (Diprivan) 200 mg STK-MED ONCE IV ; Start 12/07/19 at 12:00; Stop 12/09/19 at 08:49; Status DC Epinephrine HCl (EPINEPHrine SYRINGE) 2 mg STK-MED ONCE .ROUTE ; Start 12/08/19 at 09:30; Stop 12/09/19 at 09:05; Status DC Atropine Sulfate (ATROPINE 1mg SYRINGE) 1 mg STK-MED ONCE .ROUTE ; Start 12/08/19 at 09:30; Stop 12/09/19 at 09:05; Status DC Info (Anti-Coagulation Monitoring By Pharmacy) 1 each PRN DAILY PRN MC SEE COMMENTS Last administered on 12/13/19at 13:41; Start 12/09/19 at 13:00; Stop 12/14/19 at 12:25; Status DC Furosemide (Lasix) 40 mg 1X ONCE IVP Last administered on 12/09/19at 14:30; Start 12/09/19 at 14:30; Stop 12/09/19 at 14:31; Status DC Vecuronium [place] 50 mg/ Miscellaneous 50 ml @ 7.598 mls/ hr CONT PRN IV SEE I/O RECORD Last administered on 12/13/19at 02:21; Start 12/10/19 at 21:00 Vecuronium [place] (Norcuron Bolus) 8 mg PRN Q2HR PRN IV SEDATION Last administered on 12/12/19at 00:59; Start 12/10/19 at 21:00 Sodium Chloride 500 ml @ 999 mls/hr Q31M IV Last administered on 12/12/19at 11:31; Start 12/12/19 at 11:00; Stop 12/12/19 at 12:53; Status DC Lidocaine HCl (Buffered Lidocaine 1%) 3 ml STK-MED ONCE .ROUTE ; Start 12/12/19 at 11:36; Stop 12/12/19 at 11:37; Status DC Lidocaine HCl (Buffered Lidocaine 1%) 3 ml 1X ONCE INJ Last administered on 12/12/19at 12:45; Start 12/12/19 at 12:45; Stop 12/12/19 at 12:49; Status DC Info (Tpn Per Pharmacy) 1 each PRN DAILY PRN MC SEE COMMENTS Last administered on 12/15/19at 11:33; Start 12/14/19 at 16:45 Amino Acids/ Glycerin/ Electrolytes 1,000 ml @ 80 mls/hr [id number] IV Last administered on 12/15/19at 06:24; Start 12/14/19 at 17:30; Stop 12/15/19 at 08:25; Status DC Pantoprazole Sodium (PROTONIX VIAL for IV PUSH) 40 mg DAILYAC IVP Last administered on 12/15/19at 08:51; Start 12/15/19 at 07:45 Multivitamins 10 ml/Chromium/ Copper/Manganese/ Seleni/Zn 1 ml/ Total Parenteral Nutrition/Amino Acids/Dextrose 1,200 ml @ 50 mls/hr TPN CONT IV ; Start 12/15/19 at 22:00; Stop 12/16/19 at 21:59 Furosemide (Lasix) 40 mg 1X ONCE IVP Last administered on 12/15/19at 13:47; Start 12/15/19 at 13:15; Stop 12/15/19 at 13:42; Status DC Active Scripts Active [place] 5-325 Tablet (Acetaminophen/Hydrocodone Bitart) 1 Each Tablet 1 Tab PO PRN Q6HRS PRN Orphenadrine Citrate 100 Mg Tablet.er 1 Tab PO BID Amlodipine Besylate 5 Mg Tablet 5 Mg PO DAILY Reported Lisinopril 40 Mg Tablet 40 Mg PO DAILY Glipizide 5 Mg Tablet 2.5 Mg PO DAILY Hydrochlorothiazide Tablet (Hydrochlorothiazide) 12.5 Mg Tablet 25 Mg PO DAILY Furosemide 20 Mg Tablet 20 Mg PO DAILY Tamsulosin Hcl 0.4 Mg Cap.er.24h 1 Cap PO DAILY Aspirin 81 Mg Tab.chew 81 Mg PO DAILY Metformin Hcl 500 Mg Tablet 500 Mg PO DAILY Vitals/I & O Vital Sign - Last 24 Hours 12/14/19 12/14/19 12/14/19 12/14/19 14:00 15:00 15:46 15:58 Temp 97.2 97.2 97.2 97.2 Pulse 52 50 Resp 24 24 B/P (MAP) 150/60 (90) 152/60 (90) Pulse Ox 98 98 99 O2 Delivery Ventilator Ventilator Ventilator 12/14/19 12/14/19 12/14/19 12/14/19 15:58 15:58 17:00 17:00 Temp 97.2 97.2 97.2 97.2 Pulse 50 53 Resp 24 24 B/P (MAP) 172/66 (101) 161/66 (97) Pulse Ox 98 98 97 O2 Delivery Mechanical Ventilator Ventilator Ventilator Ventilator 12/14/19 12/14/19 12/14/19 12/14/19 17:34 18:00 19:00 20:00 Temp 97.2 97.3 97.2 97.3 Pulse 51 50 50 Resp 24 24 B/P (MAP) 168/64 (98) 157/60 (92) 158/62 (94) Pulse Ox 98 97 97 O2 Delivery Ventilator Ventilator Ventilator 12/14/19 12/14/19 12/14/19 12/14/19 20:00 20:00 20:26 21:00 Temp 97.2 97.2 97.2 97.2 Pulse 50 52 Resp 24 24 B/P (MAP) 158/62 (94) 164/60 (94) Pulse Ox 97 96 97 O2 Delivery Mechanical Ventilator Ventilator Ventilator Ventilator 12/14/19 12/14/19 12/14/19 12/15/19 22:00 22:58 23:00 00:00 Temp 97.2 97.2 97.2 97.2 Pulse 60 62 60 Resp 24 24 B/P (MAP) 186/66 (106) 202/76 174/60 (98) Pulse Ox 98 96 O2 Delivery Ventilator Ventilator Mechanical Ventilator 12/15/19 12/15/19 12/15/19 12/15/19 00:00 00:00 00:16 01:00 Temp 97.2 97.2 97.2 97.2 Pulse 60 60 70 Resp 24 24 B/P (MAP) 166/54 (91) 166/54 (91) 167/53 (91) Pulse Ox 96 95 95 O2 Delivery Ventilator Ventilator Ventilator 12/15/19 12/15/19 12/15/19 12/15/19 02:00 03:00 04:00 04:00 Temp 97.2 97.5 97.5 97.2 97.5 97.5 Pulse 64 66 64 Resp 24 24 24 B/P (MAP) 148/56 (86) 164/56 (92) 156/56 (89) Pulse Ox 96 96 98 O2 Delivery Ventilator Ventilator Ventilator Mechanical Ventilator 12/15/19 12/15/19 12/15/19 12/15/19 04:00 04:43 05:00 06:00 Temp 97.7 97.7 97.7 97.7 Pulse 64 62 60 Resp 24 24 B/P (MAP) 156/56 (89) 156/57 (90) 141/53 (82) Pulse Ox 97 98 99 O2 Delivery Ventilator Ventilator Ventilator 12/15/19 12/15/19 12/15/19 12/15/19 07:00 08:00 08:00 08:00 Temp 97.5 97.5 97.5 97.5 Pulse 57 56 Resp 24 B/P (MAP) 128/60 (82) 152/58 (89) Pulse Ox 99 98 98 O2 Delivery Ventilator Ventilator Ventilator Mechanical Ventilator 12/15/19 12/15/19 12/15/19 12/15/19 08:00 09:00 10:00 11:00 Temp 97.5 97.5 97.5 97.5 97.5 97.5 Pulse 54 53 56 Resp 24 24 24 B/P (MAP) 164/62 (96) 172/66 (101) 174/64 (100) Pulse Ox 98 98 98 O2 Delivery Ventilator Ventilator Ventilator 12/15/19 12/15/19 12/15/19 12/15/19 11:50 12:00 12:00 12:00 Temp 97.5 97.5 Pulse 58 Resp 24 B/P (MAP) 164/70 (101) Pulse Ox 95 56 O2 Delivery Ventilator Mechanical Ventilator Ventilator 12/15/19 13:00 Temp 97.3 97.3 Pulse 66 Resp 24 B/P (MAP) 141/48 (79) Pulse Ox 92 O2 Delivery Ventilator Intake and Output 12/14/19 12/14/19 12/15/19 15:00 23:00 07:00 Intake Total 49 ml 278 ml 1164 ml Output Total 800 ml 775 ml 715 ml Balance -751 ml -497 ml 449 ml Justifications for Admission Other Justification ALE ROBERTSON MD Dec 15, 2019 13:53
[2019-12-15] MEDS: hydrALAZINE 20 MG/ML VIAL. IVP PRN (14:55)
[2019-12-15] MEDS: VECURONIUM BOLUS 10 MG VIAL. IV PRN (15:12)
[2019-12-15] MEDS ORDERED: ATROPINE 0.5 MG/5 ML DISP.SYRINGE. ONE (19:00)
[2019-12-15] MEDS ORDERED: DOPamine 400MG/250ML PREMIX 400 MG/250 ML BAG IV ONE (19:00)
--- NOTE | 2019-12-15 19:00 | NUR ---
At 1156 the patient was being suctioned out by RT. While deep suctioning the catheter got stuck in the ett and the patient coughed violently. The RT noticed that the patient was in visual distress and his o2 saturation was dropping quickly. RT yelled out for help and upon viewing the monitor the patient was bradycardic and for a brief second, asystole. Code blue was called and initiated. Upon entering the room, patients heart rate began to increase and was sinus rivka. A waveform was visualized on the arterial line and the patient was confirmed to have a carotid pulse by this RN. No compressions were performed. The patient maintained bradycardic and was given 1 dose of atropine. The patients HR and BP stabilized after 1 dose of atropine. The RT continued to work on lavaging the patient and was able to start suctioning a thick brown mucus plug. Many large brown and red mucus plugs were suctioned out of the patients ett by RT. The patients O2 sat remained in the 40%'s. After around 30 minutes of lavaging and bagging the patient, the patients O2 sat increased to 90%. The ventilator was then reapplied and FIO2 increased to 100%. Patient was stable on the vent until around 1430 when the patient began forcefully coughing again and BP from the arterial line increased to 240's over 50's. RT was notified and the patient was then lavaged numerous times. Thick brown secretions came out of the ET tube but patients BP was still very high and he was breathing over the vent. Sedation bolus was given but patients status remained unchanged. After 15 minutes of this continuous BP and overbreathing on the vent the patient was given one dose of vecuronium and lavaged/deep suctioned more. Shortly after the patients respirations matched the vent and the coughing subsided. The patients BP however maintained in the mid 200's. Shortly after the patient was given hydralazine to attempt to bring down the BP. After 30 minutes to an hour the patients lowest blood pressure was 190's over 60's. I obtained Cardene to restart on this patient to help lower the BP however immediately after spiking the bag and connecting to the patients CL the patients BP dropped to 154/52 at 1655. Cardene was never started on the patient and his BP has remained stable since. His temperature before this event was 97.5. At 1700 it was 99.3 and has maintained that throughout the evening. Report passed along to shift leader at this time. Denia, , was notified after the Code Blue and the family (son, , and another family member) was also informed at 1900 about the patients condition since notifying the earlier in the day.
[2019-12-15] MEDS: ATORVASTATIN CALCIUM 40 MG TABLET. PO SCH (21:23)
[2019-12-15] MEDS ORDERED: [UNRECOGNIZED DRUG - OTHER] IV SCH (22:00)
[2019-12-15] MEDS ORDERED: TOTAL PARENTERAL NUTRITION IV SCH (22:00)
[2019-12-15] MEDS ORDERED: AMINO ACID IV SCH (22:00)
[2019-12-15] MEDS ORDERED: DEXTROSE IV SCH (22:00)
[2019-12-16] VITALS (24 sets, daily range): BP systolic 62–150; BP diastolic 34–75
[2019-12-16] MEDS: MIDAZOLAM 100mg/100ml NS BAG 100 ML IV PRN (04:31)
[2019-12-16] MEDS: methylPREDNISolone SOD SUCC PF 40 MG/ML VIAL. IV SCH ×2 (06:07→14:13)
[2019-12-16] MEDS: fentaNYL HIGH DOSE PCA 55 ML IV PRN (06:07)
[2019-12-16] MEDS: INSULIN LISPRO 300 UNITS/3 ML VIAL. SQ SCH ×4 (06:08→16:33)
[2019-12-16 06:55] LABS: CALCIUM 8.5 mg/dL (8.5-10.1); CREATININE 2.4 mg/dL (0.7-1.3); GFR 32.6; MAGNESIUM 2.3 mg/dL (1.8-2.4); PHOSPHORUS 5.8 mg/dL (2.6-4.7); POTASSIUM 5.7 mmol/L (3.5-5.1)
--- NOTE | 2019-12-16 07:36 | PDOC ---
PROGRESS NOTES Date of Service: DATE: 12/16/19 TIME: 07:33 Chief Complaint Chief Complaint COVID 19 infection/ viral sepsis acute hypoxemic respiratory distress due to the above. Acute renal failure due to vasomotor nephropathy normocytic anemia Diabetes-Type II High Cholesterol Hypertension Severe protein calorie malnutrition Coffee ground emesis, GI evaluation noted, recommendations greatly appreciated. Plan continue with supportive measures Lasix therapy as per nephrology, slight bump in Cr level as expected, continue to monitor urine output will follow results of lab work, h and h pending at the time of this note. supportive measures History of Present Illness History of Present Illness 12/16/2019 Remains critically stable follow urine output h and h pending. no further coffee ground emesis. 12/15/2019 Remains on mechanical ventilation No further coffee-ground emesis GI consultation noted Sedated on propofol Remains critically ill Prognosis guarded 12/14/2019 Patient seen in the [place] [id number] ICU Remains intubated AC// with 90% FiO2 and 10 of PEEP Discussed with RN Patient having some coffee-ground emesis I consulted GI awaiting their input Currently sedated with Versed fentanyl and propofol He also has a heparin drip He remains critically ill 12/13/2019 Patient seen and examined in the [place] [id number] ICU He remains intubated Assist-control/246 100/90% with 10 of PEEP He has OG in place He is sedated with Versed fentanyl and propofol He also has a heparin drip Chart reviewed Discussed with RN He remains extremely critically ill we are concerned he may not survive 12/12/2019 Patient seen in ICU [place] [id number] unit He remains intubated and mechanically ventilated AC/6 100/100% with 10 of PEEP He is sedated with propofol Versed and fentanyl I discussed the case with the correctional counselor/case manager discussed with RNs as well Chart reviewed He remains very critically ill as he is on 100% oxygen 12/11/2019 Patient seen and examined once again in the [place] [id number] ICU He is intubated Assist-control/24/6 100/100% with 9 of PEEP He has OG feeds running at 60 cc an hour He is on a heparin drip He is fentanyl and Versed for sedation Discussed with the correctional counselor/case manager Discussed with RN Chart reviewed He remains critically ill 12-10-2019 Patient seen and examined in the [place] [id number] ICU He is still intubated He is back on 100% FiO2 AC/24/6 100/100% with 10 of PEEP I discussed the case with the correctional counselor/case manager I spoke with his son Jayden yesterday by phone for quite some time Chart reviewed 12-09-2019 Patient seen and examined in the [facility] ICU He remains intubated Assist-control/30/09 100/90% with 7 of PEEP He is sedated with Versed propofol He is also on a heparin drip Also has fentanyl IV Discussed with case management Discussed with RN Chart reviewed I tried to call the family but no answer I left a voicemail Plan is to [facility] possible Mr Olvera is a 69yo M w/ PMHx Diabetes-Type II, High Cholesterol, Hypertension who was in his usual state of health until 2 days prior ot his admission when he was evaluated at [facility] and found to be positive for COVID 19 virus, patient was discharged and given instructions to follow up in the nearest medical center would his symptoms worsen, Today he felt worse and more dyspneic reason why he came to the ER, he initially requiring 1 liter of oxygen 11/28: Febrile 101 3 F overnight. Procalcitonin elevated, INR 1.4, WBC 9.1, Hb 11.9, platelets 189, NA 137, K3.4, BUN 39, CR 2.8, glucose 240. He is short of breath with cough. He is insistent he does not wish for convalescent FFP if his O2 needs continues to increase. Now on 4L NCO2. 11/29: Febrile to 101.5 F overnight. Creatinine increased to 4.1, he still very short of breath worsening cough, increased from 6 L nasal cannula overnight to 15 L nonrebreather facemask. I discussed with pulmonology to transferred out of the ICU. I have asked the patient to reconsider convalesce and FFP and will discuss with his family. 11/30: No acute events reported overnight, case discussed with nursing staff patient in no acute distress no complaints during my visit seems to be tolerating Vapotherm well hopefully he will be able to continue with improving, encourage proning position if tolerated 12/01: No acute events reported overnight, case discussed with nursing staff patient in no acute distress no complaints during my visit, given update patient's over the phone reassurance has been provided no new complaints seems to be status quo. Encourage more activity as tolerated in prone positioning 12/02: Discussed with nursing staff, no acute events overnight. Breathing well on Vapotherm. Continue ICU monitoring. 12/03: Patient with O2 desaturation overnight. Breathing more comfortably upright position. Currently breathing on 40 L of high flow nasal cannula with 100% O2 saturation 12/07 : PLACED ON VENT OVER NIGHT, inc resp distress Vitals Vitals Vital Signs Date Time Temp Pulse Resp B/P (MAP) Pulse Ox O2 Delivery O2 Flow Rate FiO2 12/16/19 04:09 95 Ventilator 12/16/19 04:00 88 93/44 (60) 12/16/19 04:00 99.3 24 99.3 Physical Exam Physical Exam sedated on vent General: No acute distress, Other Heart: Regular rate, Normal S1, Normal S2 Abdomen: Normal bowel sounds, Soft Extremities: No clubbing, No cyanosis Skin: No rashes, No breakdown Labs LABS Laboratory Tests Test 12/15/19 08:00 12/15/19 12:12 12/15/19 12:25 12/15/19 17:51 O2 Saturation 93 % (92-99) 33 % (92-99) 89 % (92-99) Arterial Blood pH 7.38 (7.35-7.45) 7.26 (7.35-7.45) 7.36 (7.35-7.45) Arterial Blood pCO2 at Patient Temp 43 mmHg (35-46) 65 mmHg (35-46) 44 mmHg (35-46) Arterial Blood pO2 at Patient Temp 72 mmHg (65-108) < 42 mmHg (65-108) 64 mmHg (65-108) Arterial Blood HCO3 25 mmol/L (21-28) 29 mmol/L (21-28) 24 mmol/L (21-28) Arterial Blood Base Excess -1 mmol/L (-3-3) 1 mmol/L (-3-3) -1 mmol/L (-3-3) FiO2 85 100 100 Glucose (Fingerstick) 162 mg/dL (70-99) Test 12/15/19 21:56 12/15/19 23:55 12/16/19 05:36 12/16/19 06:15 Glucose (Fingerstick) 107 mg/dL (70-99) 128 mg/dL (70-99) 155 mg/dL (70-99) Sodium Level 146 mmol/L (136-145) Potassium Level 5.7 mmol/L (3.5-5.1) Chloride Level 111 mmol/L (98-107) Carbon Dioxide Level 24 mmol/L (21-32) Anion Gap 11 (6-14) Blood Urea Nitrogen 86 mg/dL (8-26) Creatinine 2.4 mg/dL (0.7-1.3) Estimated GFR (Cockcroft-Gault) 32.6 Glucose Level 173 mg/dL (70-99) Calcium Level 8.5 mg/dL (8.5-10.1) Phosphorus Level 5.8 mg/dL (2.6-4.7) Magnesium Level 2.3 mg/dL (1.8-2.4) Assessment and Plan Assessmemt and Plan Problems Medical Problems: (1) ARF (acute renal failure) Status: Acute (2) Fever Status: Acute (3) Hypoxemia Status: Acute (4) Sepsis Status: Acute Comment Review of Relevant I have reviewed the following items bren (where applicable) has been applied. Labs Laboratory Tests Test 12/14/19 08:27 12/14/19 17:37 12/14/19 20:32 12/15/19 00:13 O2 Saturation 92 % (92-99) Arterial Blood pH 7.42 (7.35-7.45) Arterial Blood pCO2 at Patient Temp 43 mmHg (35-46) Arterial Blood pO2 at Patient Temp 66 mmHg (65-108) Arterial Blood HCO3 27 mmol/L (21-28) Arterial Blood Base Excess 2 mmol/L (-3-3) FiO2 90 Glucose (Fingerstick) 95 mg/dL (70-99) 112 mg/dL (70-99) 131 mg/dL (70-99) Test 12/15/19 05:55 12/15/19 06:00 12/15/19 08:00 12/15/19 12:12 Glucose (Fingerstick) 151 mg/dL (70-99) Sodium Level 145 mmol/L (136-145) Potassium Level 5.9 mmol/L (3.5-5.1) Chloride Level 111 mmol/L (98-107) Carbon Dioxide Level 28 mmol/L (21-32) Anion Gap 6 (6-14) Blood Urea Nitrogen 77 mg/dL (8-26) Creatinine 1.7 mg/dL (0.7-1.3) Estimated GFR (Cockcroft-Gault) 48.6 Glucose Level 152 mg/dL (70-99) Calcium Level 8.5 mg/dL (8.5-10.1) Phosphorus Level 4.7 mg/dL (2.6-4.7) Magnesium Level 2.4 mg/dL (1.8-2.4) O2 Saturation 93 % (92-99) 33 % (92-99) Arterial Blood pH 7.38 (7.35-7.45) 7.26 (7.35-7.45) Arterial Blood pCO2 at Patient Temp 43 mmHg (35-46) 65 mmHg (35-46) Arterial Blood pO2 at Patient Temp 72 mmHg (65-108) < 42 mmHg (65-108) Arterial Blood HCO3 25 mmol/L (21-28) 29 mmol/L (21-28) Arterial Blood Base Excess -1 mmol/L (-3-3) 1 mmol/L (-3-3) FiO2 85 100 Test 12/15/19 12:25 12/15/19 17:51 12/15/19 21:56 12/15/19 23:55 O2 Saturation 89 % (92-99) Arterial Blood pH 7.36 (7.35-7.45) Arterial Blood pCO2 at Patient Temp 44 mmHg (35-46) Arterial Blood pO2 at Patient Temp 64 mmHg (65-108) Arterial Blood HCO3 24 mmol/L (21-28) Arterial Blood Base Excess -1 mmol/L (-3-3) FiO2 100 Glucose (Fingerstick) 162 mg/dL (70-99) 107 mg/dL (70-99) 128 mg/dL (70-99) Test 12/16/19 05:36 12/16/19 06:15 Glucose (Fingerstick) 155 mg/dL (70-99) Sodium Level 146 mmol/L (136-145) Potassium Level 5.7 mmol/L (3.5-5.1) Chloride Level 111 mmol/L (98-107) Carbon Dioxide Level 24 mmol/L (21-32) Anion Gap 11 (6-14) Blood Urea Nitrogen 86 mg/dL (8-26) Creatinine 2.4 mg/dL (0.7-1.3) Estimated GFR (Cockcroft-Gault) 32.6 Glucose Level 173 mg/dL (70-99) Calcium Level 8.5 mg/dL (8.5-10.1) Phosphorus Level 5.8 mg/dL (2.6-4.7) Magnesium Level 2.3 mg/dL (1.8-2.4) Laboratory Tests Test 12/15/19 08:00 12/15/19 12:12 12/15/19 12:25 12/15/19 17:51 O2 Saturation 93 % (92-99) 33 % (92-99) 89 % (92-99) Arterial Blood pH 7.38 (7.35-7.45) 7.26 (7.35-7.45) 7.36 (7.35-7.45) Arterial Blood pCO2 at Patient Temp 43 mmHg (35-46) 65 mmHg (35-46) 44 mmHg (35-46) Arterial Blood pO2 at Patient Temp 72 mmHg (65-108) < 42 mmHg (65-108) 64 mmHg (65-108) Arterial Blood HCO3 25 mmol/L (21-28) 29 mmol/L (21-28) 24 mmol/L (21-28) Arterial Blood Base Excess -1 mmol/L (-3-3) 1 mmol/L (-3-3) -1 mmol/L (-3-3) FiO2 85 100 100 Glucose (Fingerstick) 162 mg/dL (70-99) Test 12/15/19 21:56 12/15/19 23:55 12/16/19 05:36 12/16/19 06:15 Glucose (Fingerstick) 107 mg/dL (70-99) 128 mg/dL (70-99) 155 mg/dL (70-99) Sodium Level 146 mmol/L (136-145) Potassium Level 5.7 mmol/L (3.5-5.1) Chloride Level 111 mmol/L (98-107) Carbon Dioxide Level 24 mmol/L (21-32) Anion Gap 11 (6-14) Blood Urea Nitrogen 86 mg/dL (8-26) Creatinine 2.4 mg/dL (0.7-1.3) Estimated GFR (Cockcroft-Gault) 32.6 Glucose Level 173 mg/dL (70-99) Calcium Level 8.5 mg/dL (8.5-10.1) Phosphorus Level 5.8 mg/dL (2.6-4.7) Magnesium Level 2.3 mg/dL (1.8-2.4) Microbiology 12/01/19 Urine Culture - Final, Complete Medications Current Medications Ondansetron HCl (Zofran) 4 mg 1X ONCE IV Last administered on 11/28/19at 16:25; Start 11/28/19 at 15:30; Stop 11/28/19 at 15:36; Status DC Acetaminophen (Tylenol) 1,000 mg 1X ONCE PO Last administered on 11/28/19at 16 :25; Start 11/28/19 at 15:45; Stop 11/28/19 at 16:03; Status DC Acetaminophen (Tylenol) 650 mg PRN Q6HRS PRN PO Headaches, Temp > 101.5' Last administered on 11/30/19at 08:45; Start 11/28/19 at 17:45 Lorazepam (Ativan Inj) 0.5 mg PRN Q6HRS PRN IVP ANXIETY / AGITATION Last administered on 12/06/19at 22:50; Start 11/28/19 at 17:45 Ondansetron HCl (Zofran) 4 mg PRN Q6HRS PRN IVP NAUSEA/VOMITING; Start 11/28/19 at 17:45 Famotidine (Pepcid Vial) 20 mg BID IVP Last administered on 12/03/19at 07:48; Start 11/28/19 at 21:00; Stop 12/03/19 at 15:24; Status DC Info (Icu Electrolyte Protocol) 1 ea DAILY MC ; Start 11/29/19 at 09:00; Stop at 18:16; Status DC Enoxaparin Sodium (Lovenox 40mg Syringe) 150 mg Q12HR SQ ; Start 11/28/19 at 21:00; Stop 11/28/19 at 18:16; Status DC Sodium Chloride (Normal Saline Flush) 3 ml QSHIFT PRN IV AFTER MEDS AND BLOOD DRAWS; Start 11/28/19 at 17:45 Acetaminophen/ Hydrocodone Bitart (Lortab 5/325) 1 tab PRN Q4HRS PRN PO MILD PAIN, 2ND CHOICE; Start 11/28/19 at 17:45 Morphine Sulfate (Morphine Sulfate) 1 mg PRN Q1HR PRN IV PAIN; Start 11/28/19 at 17:45; Stop 12/10/19 at 01:00; Status DC Senna/Docusate Sodium (Senna Plus) 1 tab BID PO Last administered on 12/15/19 21:23; Start 11/28/19 at 21:00 Lactulose (Lactulose) 20 gm PRN Q12HR PRN PO CONSTIPATION Last administered on 12/15/19 08:51; Start 11/28/19 at 17:45 Amlodipine Besylate (Norvasc) 5 mg DAILY PO Last administered on 12/03/19at 07:49; Start 11/29/19 at 09:00; Stop 12/04/19 at 00:25; Status DC Aspirin (Aspirin Chewable) 81 mg DAILY PO Last administered on 12/15/19 08:50; Start 11/29/19 at 09:00 Furosemide (Lasix) 20 mg DAILY PO Last administered on 12/01/19 08:19; Start 11/29/19 at 09:00; Stop 12/01/19 at 12:52; Status DC Glipizide (Glucotrol) 2.5 mg DAILY PO Last administered on 11/30/19at 08:44; Start 11/29/19 at 09:00; Stop 12/01/19 at 08:12; Status DC Acetaminophen/ Hydrocodone Bitart (Lortab 5/325) 1 tab PRN Q6HRS PRN PO PAIN; Start 11/28/19 at 17:45; Status UNV Lisinopril (Prinivil) 40 mg DAILY PO Last administered on 12/01/19at 08:19; Start 11/29/19 at 09:00; Stop 12/01/19 at 12:52; Status DC Tamsulosin HCl (Flomax) 0.4 mg DAILY PO Last administered on 12/15/19 08:50; Start 11/29/19 at 09:00 Hydrochlorothiazide (Hydrodiuril) 25 mg DAILY PO Last administered on 12/01/19at 08:17; Start 11/29/19 at 09:00; Stop 12/01/19 at 12:52; Status DC Cyclobenzaprine HCl (Flexeril) 10 mg TID PO Last administered on 11/30/19at 22:16; Start 11/28/19 at 21:00; Stop 12/02/19 at 06:46; Status DC Magnesium Sulfate 50 ml @ 25 mls/hr 1X ONCE IV Last administered on 11/28/19at 19:10; Start 11/28/19 at 19:00; Stop 11/28/19 at 20:59; Status DC Zinc Sulfate (Orazinc) 220 mg DAILY PO Last administered on 12/15/19at 08:50; Start 11/29/19 at 09:00 Ascorbic Acid (Vitamin C) 500 mg Q6HRS PO Last administered on 12/04/19at 11:48; Start 11/29/19 at 00:00; Stop 12/04/19 at 14:58; Status DC Vitamin D (Vitamin D3) 1,000 unit BID PO Last administered on 12/15/19at 21:23; Start 11/28/19 at 21:00 Atorvastatin Calcium (Lipitor) 40 mg QHS PO Last administered on 12/15/19at 21:23; Start 11/28/19 at 21:00 Enoxaparin Sodium (Lovenox 80mg Syringe) 80 mg 1X ONCE SQ Last administered on 11/28/19at 19:10; Start 11/28/19 at 19:00; Stop 11/28/19 at 19:01; Status DC Enoxaparin Sodium (Lovenox 40mg Syringe) 40 mg Q12HR SQ Last administered on 11/29/19at 20:52; Start 11/29/19 at 09:00; Stop 11/30/19 at 10:00; Status DC Thiamine HCl 200 mg/Dextrose 52 ml @ 102 mls/hr Q12HR IV Last administered on 12/04/19at 09:23; Start 11/28/19 at 19:30; Stop 12/04/19 at 14:59; Status DC Potassium Chloride (Klor-Con) 40 meq 1X ONCE PO Last administered on 11/29/19at 17:15; Start 11/29/19 at 16:45; Stop 11/29/19 at 16:46; Status DC Methylprednisolone Sodium Succinate (SOLU-Medrol 125MG VIAL) 60 mg Q8HRS IV Last administered on 12/03/19at 05:38; Start 11/30/19 at 09:00; Stop 12/03/19 at 10:50; Status DC Piperacillin Sod/ Tazobactam Sod (Zosyn Per Pharmacy) 1 each PRN DAILY PRN MC SEE COMMENTS; Start 11/30/19 at 08:45; Stop 12/10/19 at 17:04; Status DC Piperacillin Sod/ Tazobactam Sod 3.375 gm/Sodium Chloride 50 ml @ 100 mls/hr Q6HRS IV Last administered on 12/10/19at 12:07; Start 11/30/19 at 12:00; Stop 12/10/19 at 17:03; Status DC Heparin Sodium (Porcine) (Heparin Sodium) 5,000 unit Q8HRS SQ Last administered on 12/07/19at 06:09; Start 11/30/19 at 14:00; Stop 12/07/19 at 11:13; Status DC Sterile Water (WATER for RESP) 1,000 ml CONT PRN INH VIA VAPOTHERM DEVICE Last administered on 12/07/19at 15:37; Start 11/30/19 at 17:30 Insulin Glargine (Lantus Syringe) 20 unit BID SQ Last administered on 12/01/19at 12:30; Start 12/01/19 at 12:30; Stop 12/01/19 at 17:33; Status DC Insulin Human Lispro (HumaLOG) 0-9 UNITS TIDWMEALS SQ Last administered on 12/01/19at 17:33; Start 12/01/19 at 12:30; Stop 12/01/19 at 21:03; Status DC Dextrose (Dextrose 50%-Water Syringe) 12.5 gm PRN Q15MIN PRN IV SEE COMMENTS; Start 12/01/19 at 12:15 Sodium Chloride 1,000 ml @ 75 mls/hr 1X ONCE IV Last administered on 12/01/19at 12:58; Start 12/01/19 at 13:00; Stop 12/02/19 at 02:19; Status DC Insulin Glargine (Lantus Syringe) 30 unit BID SQ Last administered on 12/15/19at 08:51; Start 12/01/19 at 21:00 Insulin Human Lispro (HumaLOG) 10 units TIDWMEALS SQ Last administered on 12/01/19at 17:49; Start 12/01/19 at 17:45; Stop 12/01/19 at 21:04; Status DC Insulin Human Lispro (HumaLOG) 0-9 UNITS QIDACHS SQ Last administered on 12/06/19at 21:35; Start 12/02/19 at 07:30; Stop 12/08/19 at 13:39; Status DC Insulin Human Lispro (HumaLOG) 15 units TIDWMEALS SQ Last administered on 12/06/19at 17:31; Start 12/02/19 at 08:00; Stop 12/08/19 at 13:39; Status DC Insulin Human Lispro (HumaLOG) 9 units 1X ONCE SQ Last administered on 12/01/19at 21:16; Start 12/01/19 at 21:30; Stop 12/01/19 at 21:31; Status DC Cyclobenzaprine HCl (Flexeril) 10 mg PRN TID PRN PO MUSCLE SPASMS Last administered on 12/06/19at 20:16; Start 12/02/19 at 06:45 Furosemide (Lasix) 20 mg 1X ONCE IVP ; Start 12/02/19 at 10:15; Stop 12/02/19 at 10:47; Status DC Furosemide (Lasix) 40 mg 1X ONCE IVP Last administered on 12/02/19at 11:09; Start 12/02/19 at 10:45; Stop 12/02/19 at 10:51; Status DC Sodium Chloride 1,000 ml @ 75 mls/hr [id number] IV Last administered on 12/07/19at 23:32; Start 12/02/19 at 14:30; Stop 12/08/19 at 14:44; Status DC Lactobacillus Rhamnosus (Culturelle) 1 cap BID PO Last administered on 12/15/19at 21:23; Start 12/02/19 at 21:00 Methylprednisolone Sodium Succinate (SOLU-Medrol 40MG VIAL) 40 mg Q8HRS IV Last administered on 12/16/19at 06:07; Start 12/03/19 at 14:00 Famotidine (Pepcid Vial) 20 mg DAILY IVP Last administered on 12/14/19at 08:26; Start 12/04/19 at 09:00; Stop 12/15/19 at 07:41; Status DC Amlodipine Besylate (Norvasc) 10 mg DAILY PO Last administered on 12/06/19at 07:58; Start 12/04/19 at 09:00; Stop 12/06/19 at 18:39; Status DC Hydralazine HCl (Apresoline Inj) 10 mg PRN Q15MIN PRN IVP ELEVATED BP, SEE COMMENTS Last administered on 12/06/19at 10:41; Start 12/04/19 at 00:30; Stop 12/06/19 at 15:23; Status DC Ascorbic Acid (Vitamin C) 500 mg BID PO Last administered on 12/15/19at 21:23; Start 12/04/19 at 21:00 Thiamine Mononitrate (Vitamin B-1) 100 mg BID PO Last administered on 12/15/19at 21:23; Start 12/04/19 at 21:00 Furosemide (Lasix) 40 mg 1X ONCE IVP Last administered on 12/05/19at 11:39; Start 12/05/19 at 11:15; Stop 12/05/19 at 11:16; Status DC Metoprolol Tartrate (Lopressor) 25 mg PRN BID PRN PO TACHYCARDIA; Start 12/05/19 at 22:30; Status Cancel Haloperidol Lactate (Haldol Inj) 2.5 mg PRN Q6HRS PRN IVP Anxiety (2ND CHOICE) Last administered on 12/07/19at 03:19; Start 12/06/19 at 10:45 Furosemide (Lasix) 40 mg 1X ONCE IVP Last administered on 12/06/19at 12:50; Start 12/06/19 at 12:30; Stop 12/06/19 at 12:31; Status DC Hydralazine HCl (Apresoline Inj) 20 mg PRN Q4HRS PRN IVP ELEVATED BP, SEE COMMENTS Last administered on 12/15/19at 14:55; Start 12/06/19 at 15:30 Nicardipine HCl 50 mg/Sodium Chloride 250 ml @ 25 mls/hr CONT PRN IV SEE I/O RECORD Last administered on 12/10/19at 10:28; Start 12/06/19 at 18:45 Dexmedetomidine HCl 400 mcg/ Sodium Chloride 100 ml @ 7.23 mls/hr CONT PRN IV SEE COMMENTS Last administered on 12/07/19at 12:52; Start 12/07/19 at 07:30 Sodium Chloride 500 ml @ 500 mls/hr 1X PRN PRN IV SEE COMMENTS; Start 12/07/19 at 07:30; Stop 12/12/19 at 12:53; Status DC Atropine Sulfate (ATROPINE 0.5mg SYRINGE) 0.5 mg PRN Q5MIN PRN IV SEE COMMENTS; Start 12/07/19 at 07:30 Diltiazem HCl (Cardizem Iv Push) 10 mg 1X ONCE IVP Last administered on 12/07/19at 09:13; Start 12/07/19 at 09:00; Stop 12/07/19 at 09:01; Status DC Diltiazem HCl 125 mg/Sodium Chloride 125 ml @ 5 mls/hr CONT PRN IV SEE I/O RECORD Last administered on 12/07/19at 09:33; Start 12/07/19 at 09:00 Magnesium Sulfate 50 ml @ 25 mls/hr 1X ONCE IV Last administered on 12/07/19at 11:05; Start 12/07/19 at 09:45; Stop 12/07/19 at 11:44; Status DC Heparin Sodium/ Dextrose 250 ml @ 20 mls/hr CONT PRN IV PER PROTOCOL Last administered on 12/13/19at 22:25; Start 12/07/19 at 10:45; Stop 12/14/19 at 10:26; Status DC Heparin Sodium (Porcine) (Heparin Sodium) 4,350 unit PRN Q6HRS PRN IV FOR UFH LEVEL LESS THAN 0.2 Last administered on 12/10/19at 07:33; Start 12/07/19 at 10:45; Stop 12/14/19 at 10:26; Status DC Heparin Sodium (Porcine) (Heparin Sodium) 2,150 unit PRN Q6HRS PRN IV FOR UFH LEVEL 0.2 - 0.29 Last administered on 12/11/19at 06:29; Start 12/07/19 at 10:45; Stop 12/14/19 at 10:26; Status DC Fentanyl Citrate 30 ml @ 0 mls/hr CONT PRN IV SEE PROTOCOL; Start 12/07/19 at 19:45; Stop 12/07/19 at 21:23; Status DC Fentanyl Citrate (Fentanyl 2ml Vial) 25 mcg PRN Q1HR PRN IV SEE COMMENTS; Start 12/07/19 at 19:45 Fentanyl Citrate (Fentanyl 2ml Vial) 50 mcg PRN Q1HR PRN IV SEE COMMENTS; Start 12/07/19 at 19:45 Midazolam HCl 100 ml @ 0 mls/hr CONT PRN IV SEE PROTOCOL Last administered on 12/16/19at 04:31; Start 12/07/19 at 19:45 Propofol 100 ml @ 0 mls/hr CONT PRN IV SEE PROTOCOL Last administered on 12/15/19at 22:33; Start 12/07/19 at 20:00 Fentanyl Citrate 55 ml @ 0 mls/hr CONT PRN PRN IV PAIN/SEDATION Last administered on 12/16/19at 06:07; Start 12/07/19 at 21:30 Atropine Sulfate (ATROPINE 1mg SYRINGE) 1 mg STK-MED ONCE .ROUTE ; Start 12/08/19 at 09:07; Stop 12/08/19 at 09:07; Status DC Epinephrine HCl (EPINEPHrine SYRINGE) 1 mg 1X ONCE IV Last administered on 12/08/19at 08:19; Start 12/08/19 at 09:45; Stop 12/08/19 at 09:50; Status DC Non-Formulary Medication 1 ea/ Sodium Chloride 210 ml @ 210 mls/hr 1X ONCE IV Last administered on 12/08/19at 13:12; Start 12/08/19 at 12:00; Stop 12/08/19 at 12:59; Status DC Non-Formulary Medication 1 ea/ Sodium Chloride 230 ml @ 460 mls/hr Q24H IV Last administered on 12/12/19at 11:42; Start 12/09/19 at 12:00; Stop 12/12/19 at 12:29; Status DC Insulin Human Lispro (HumaLOG) 0-9 UNITS Q6HRS SQ Last administered on 12/16/19at 06:08; Start 12/08/19 at 18:00 Etomidate (Amidate) 20 mg STK-MED ONCE IV ; Start 12/07/19 at 12:00; Stop 12/09/19 at 08:48; Status DC Succinylcholine Chloride (Anectine) 200 mg STK-MED ONCE .ROUTE ; Start 12/07/19 at 12:00; Stop 12/09/19 at 08:49; Status DC Ephedrine Sulfate (ePHEDrine PF IN SALINE SYRINGE) 50 mg STK-MED ONCE IV ; Start 12/07/19 at 12:00; Stop 12/09/19 at 08:49; Status DC Phenylephrine HCl (PHENYLEPHRINE in 0.9% NACL PF) 1 mg STK-MED ONCE IV ; Start 12/07/19 at 12:00; Stop 12/09/19 at 08:49; Status DC Propofol (Diprivan) 200 mg STK-MED ONCE IV ; Start 12/07/19 at 12:00; Stop 12/09/19 at 08:49; Status DC Epinephrine HCl (EPINEPHrine SYRINGE) 2 mg STK-MED ONCE .ROUTE ; Start 12/08/19 at 09:30; Stop 12/09/19 at 09:05; Status DC Atropine Sulfate (ATROPINE 1mg SYRINGE) 1 mg STK-MED ONCE .ROUTE ; Start 12/08/19 at 09:30; Stop 12/09/19 at 09:05; Status DC Info (Anti-Coagulation Monitoring By Pharmacy) 1 each PRN DAILY PRN MC SEE COMMENTS Last administered on 12/13/19at 13:41; Start 12/09/19 at 13:00; Stop 12/14/19 at 12:25; Status DC Furosemide (Lasix) 40 mg 1X ONCE IVP Last administered on 12/09/19at 14:30; Start 12/09/19 at 14:30; Stop 12/09/19 at 14:31; Status DC Vecuronium [place] 50 mg/ Miscellaneous 50 ml @ 7.598 mls/ hr CONT PRN IV SEE I/O RECORD Last administered on 12/13/19at 02:21; Start 12/10/19 at 21:00 Vecuronium [place] (Norcuron Bolus) 8 mg PRN Q2HR PRN IV SEDATION Last administered on 12/15/19at 15:12; Start 12/10/19 at 21:00 Sodium Chloride 500 ml @ 999 mls/hr Q31M IV Last administered on 12/12/19at 11:31; Start 12/12/19 at 11:00; Stop 12/12/19 at 12:53; Status DC Lidocaine HCl (Buffered Lidocaine 1%) 3 ml STK-MED ONCE .ROUTE ; Start 12/12/19 at 11:36; Stop 12/12/19 at 11:37; Status DC Lidocaine HCl (Buffered Lidocaine 1%) 3 ml 1X ONCE INJ Last administered on 12/12/19at 12:45; Start 12/12/19 at 12:45; Stop 12/12/19 at 12:49; Status DC Info (Tpn Per Pharmacy) 1 each PRN DAILY PRN MC SEE COMMENTS Last administered on 12/15/19at 11:33; Start 12/14/19 at 16:45 Amino Acids/ Glycerin/ Electrolytes 1,000 ml @ 80 mls/hr [id number] IV Last administered on 12/15/19at 06:24; Start 12/14/19 at 17:30; Stop 12/15/19 at 08:25; Status DC Pantoprazole Sodium (PROTONIX VIAL for IV PUSH) 40 mg DAILYAC IVP Last administered on 12/15/19at 08:51; Start 12/15/19 at 07:45 Multivitamins 10 ml/Chromium/ Copper/Manganese/ Seleni/Zn 1 ml/ Total Parenteral Nutrition/Amino Acids/Dextrose 1,200 ml @ 50 mls/hr TPN CONT IV Last admi nistered on 12/15/19at 21:24; Start 12/15/19 at 22:00; Stop 12/16/19 at 21:59 Furosemide (Lasix) 40 mg 1X ONCE IVP Last administered on 12/15/19at 13:47; Start 12/15/19 at 13:15; Stop 12/15/19 at 13:42; Status DC Active Scripts Active [place] 5-325 Tablet (Acetaminophen/Hydrocodone Bitart) 1 Each Tablet 1 Tab PO PRN Q6HRS PRN Orphenadrine Citrate 100 Mg Tablet.er 1 Tab PO BID Amlodipine Besylate 5 Mg Tablet 5 Mg PO DAILY Reported Lisinopril 40 Mg Tablet 40 Mg PO DAILY Glipizide 5 Mg Tablet 2.5 Mg PO DAILY Hydrochlorothiazide Tablet (Hydrochlorothiazide) 12.5 Mg Tablet 25 Mg PO DAILY Furosemide 20 Mg Tablet 20 Mg PO DAILY Tamsulosin Hcl 0.4 Mg Cap.er.24h 1 Cap PO DAILY Aspirin 81 Mg Tab.chew 81 Mg PO DAILY Metformin Hcl 500 Mg Tablet 500 Mg PO DAILY Vitals/I & O Vital Sign - Last 24 Hours 12/15/19 12/15/19 12/15/19 12/15/19 08:00 08:00 08:00 08:00 Temp 97.5 97.5 Pulse 56 Resp 24 B/P (MAP) 152/58 (89) Pulse Ox 98 98 O2 Delivery Ventilator Ventilator Mechanical Ventilator 12/15/19 12/15/19 12/15/19 9/7/20 09:00 10:00 11:00 11:50 Temp 97.5 97.5 97.5 97.5 97.5 97.5 Pulse 54 53 56 Resp 24 24 24 B/P (MAP) 164/62 (96) 172/66 (101) 174/64 (100) Pulse Ox 98 98 98 95 O2 Delivery Ventilator Ventilator Ventilator Ventilator 12/15/19 12/15/19 12/15/19 12/15/19 12:00 12:00 12:00 13:00 Temp 97.5 97.3 97.5 97.3 Pulse 58 66 Resp 24 24 B/P (MAP) 164/70 (101) 141/48 (79) Pulse Ox 56 92 O2 Delivery Mechanical Ventilator Ventilator Ventilator 12/15/19 12/15/19 12/15/19 12/15/19 14:00 14:55 15:00 16:00 Temp 97.3 97.5 97.3 97.5 Pulse 66 77 84 Resp 24 27 B/P (MAP) 141/48 (79) 257/74 246/70 (128) Pulse Ox 92 100 O2 Delivery Ventilator Ventilator 12/15/19 12/15/19 12/15/19 12/15/19 16:00 16:00 16:00 17:00 Temp 97.5 99.3 97.5 99.3 Pulse 92 93 Resp 24 24 B/P (MAP) 232/70 (123) 145/49 (81) Pulse Ox 98 99 99 O2 Delivery Ventilator Mechanical Ventilator Ventilator Ventilator 12/15/19 12/15/19 12/15/19 12/15/19 17:07 17:46 17:59 19:00 Temp 99.5 99.3 99.5 99.3 Pulse 93 92 Resp 24 24 B/P (MAP) 127/45 (72) 62/52 (55) Pulse Ox 98 98 98 98 O2 Delivery Ventilator Ventilator Ventilator Ventilator 12/15/19 12/15/19 12/15/19 12/15/19 20:00 20:00 20:00 20:24 Temp 99.3 99.3 Pulse 98 98 Resp 24 B/P (MAP) 158/54 (88) 158/54 (88) Pulse Ox 99 98 O2 Delivery Mechanical Ventilator Ventilator Ventilator 12/15/19 12/15/19 12/15/19 12/16/19 21:00 22:00 23:00 00:00 Temp 99.7 99.7 99.7 99.7 99.7 99.7 Pulse 102 96 86 Resp 24 24 24 B/P (MAP) 166/46 (86) 92/44 (60) 140/56 (84) Pulse Ox 100 97 99 O2 Delivery Ventilator Ventilator Ventilator Mechanical Ventilator 12/16/19 12/16/19 12/16/19 12/16/19 00:00 00:00 00:00 01:00 Temp 99.7 99.7 99.7 99.7 Pulse 89 89 92 Resp 24 24 B/P (MAP) 137/49 (78) 137/49 (78) 116/51 (72) Pulse Ox 99 98 99 O2 Delivery Ventilator Ventilator Ventilator 12/16/19 12/16/19 12/16/19 12/16/19 02:00 03:00 04:00 04:00 Temp 99.5 99.5 99.3 99.5 99.5 99.3 Pulse 90 89 88 Resp 24 24 24 B/P (MAP) 123/51 (75) 110/51 (70) 93/44 (60) Pulse Ox 98 96 96 O2 Delivery Ventilator Ventilator Mechanical Ventilator Ventilator 12/16/19 12/16/19 04:00 04:09 Pulse 88 B/P (MAP) 93/44 (60) Pulse Ox 95 O2 Delivery Ventilator Intake and Output 12/15/19 12/15/19 12/16/19 15:00 23:00 07:00 Intake Total 80 ml 719 ml 695 ml Output Total 850 ml 2720 ml 435 ml Balance -770 ml -2001 ml 260 ml Justicifation of Admission Dx: Justifications for Admission: Justification of Admission Dx: Yes Sepsis: Hypoxemia RAN GONZALES MD Dec 16, 2019 07:36
[2019-12-16 07:58] LABS: BASO % 0 % (0-3); EOS % 0 % (0-3); HEMATOCRIT 29.3 % (39.0-53.0); HEMOGLOBIN 9.3 g/dL (13.0-17.5); LYMPH # 0.5 x10^3/uL (1.0-4.8); LYMPH % 9 % (24-48); MEAN CORPUSCULAR HEMOGLOBIN 30 pg (25-35); MEAN CORPUSCULAR HGB CONC 32 g/dL (31-37); MEAN CORPUSCULAR VOLUME 95 fL (79-100); MONO # 0.2 x10^3/uL (0.0-1.1); MONO % 4 % (0-9); NEUT # 4.3 x10^3/uL (1.8-7.7); NEUT % 87 % (31-73); PLATELET COUNT 118 x10^3/uL (140-400); RED BLOOD COUNT 3.08 x10^6/uL (4.30-5.70); RED CELL DISTRIBUTION WIDTH 15.2 % (11.5-14.5)
[2019-12-16 08:45] LABS: BASE EXCESS ABG -4 mmol/L (-3-3); HCO3 ABG 24 mmol/L (21-28); PCO2 ABG 56 mmHg (35-46); PO2 ABG 57 mmHg (65-108); SAT O2 ABG 85 % (92-99)
--- NOTE | 2019-12-16 08:48 | PDOC ---
PULMONARY PROGRESS NOTES DATE: 12/16/19 TIME: 08:48 Subjective intubated 12/07 remains on AC mode,peep 10 fi02 90% Called to examine and evaluate patient for low sats he appears to be in sync with the ventilator chest x-ray was reviewed bilateral infiltrates Patient given IV Lasix earlier today no significant response Vitals Vital Signs Date Time Temp Pulse Resp B/P (MAP) Pulse Ox O2 Delivery O2 Flow Rate FiO2 12/16/19 08:20 93 Ventilator 12/16/19 06:00 98.6 86 24 122/57 (78) 98.6 Comments visual exam done on vent sedated nc at rrr no accessory muscle use no paradoxical abd motion no rash +edema Labs Laboratory Tests Test 12/14/19 17:37 12/14/19 20:32 12/15/19 00:13 12/15/19 05:55 Glucose (Fingerstick) 95 mg/dL (70-99) 112 mg/dL (70-99) 131 mg/dL (70-99) 151 mg/dL (70-99) Test 12/15/19 06:00 12/15/19 08:00 12/15/19 12:12 12/15/19 12:25 Sodium Level 145 mmol/L (136-145) Potassium Level 5.9 mmol/L (3.5-5.1) Chloride Level 111 mmol/L (98-107) Carbon Dioxide Level 28 mmol/L (21-32) Anion Gap 6 (6-14) Blood Urea Nitrogen 77 mg/dL (8-26) Creatinine 1.7 mg/dL (0.7-1.3) Estimated GFR (Cockcroft-Gault) 48.6 Glucose Level 152 mg/dL (70-99) Calcium Level 8.5 mg/dL (8.5-10.1) Phosphorus Level 4.7 mg/dL (2.6-4.7) Magnesium Level 2.4 mg/dL (1.8-2.4) O2 Saturation 93 % (92-99) 33 % (92-99) 89 % (92-99) Arterial Blood pH 7.38 (7.35-7.45) 7.26 (7.35-7.45) 7.36 (7.35-7.45) Arterial Blood pCO2 at Patient Temp 43 mmHg (35-46) 65 mmHg (35-46) 44 mmHg (35-46) Arterial Blood pO2 at Patient Temp 72 mmHg (65-108) < 42 mmHg (65-108) 64 mmHg (65-108) Arterial Blood HCO3 25 mmol/L (21-28) 29 mmol/L (21-28) 24 mmol/L (21-28) Arterial Blood Base Excess -1 mmol/L (-3-3) 1 mmol/L (-3-3) -1 mmol/L (-3-3) FiO2 85 100 100 Test 12/15/19 17:51 12/15/19 21:56 12/15/19 23:55 12/16/19 05:36 Glucose (Fingerstick) 162 mg/dL (70-99) 107 mg/dL (70-99) 128 mg/dL (70-99) 155 mg/dL (70-99) Test 12/16/19 06:15 White Blood Count 5.0 x10^3/uL (4.0-11.0) Red Blood Count 3.08 x10^6/uL (4.30-5.70) Hemoglobin 9.3 g/dL (13.0-17.5) Hematocrit 29.3 % (39.0-53.0) Mean Corpuscular Volume 95 fL (79-100) Mean Corpuscular Hemoglobin 30 pg (25-35) Mean Corpuscular Hemoglobin Concent 32 g/dL (31-37) Red Cell Distribution Width 15.2 % (11.5-14.5) Platelet Count 118 x10^3/uL (140-400) Neutrophils (%) (Auto) 87 % (31-73) Lymphocytes (%) (Auto) 9 % (24-48) Monocytes (%) (Auto) 4 % (0-9) Eosinophils (%) (Auto) 0 % (0-3) Basophils (%) (Auto) 0 % (0-3) Neutrophils # (Auto) 4.3 x10^3/uL (1.8-7.7) Lymphocytes # (Auto) 0.5 x10^3/uL (1.0-4.8) Monocytes # (Auto) 0.2 x10^3/uL (0.0-1.1) Eosinophils # (Auto) 0.0 x10^3/uL (0.0-0.7) Basophils # (Auto) 0.0 x10^3/uL (0.0-0.2) Sodium Level 146 mmol/L (136-145) Potassium Level 5.7 mmol/L (3.5-5.1) Chloride Level 111 mmol/L (98-107) Carbon Dioxide Level 24 mmol/L (21-32) Anion Gap 11 (6-14) Blood Urea Nitrogen 86 mg/dL (8-26) Creatinine 2.4 mg/dL (0.7-1.3) Estimated GFR (Cockcroft-Gault) 32.6 Glucose Level 173 mg/dL (70-99) Calcium Level 8.5 mg/dL (8.5-10.1) Phosphorus Level 5.8 mg/dL (2.6-4.7) Magnesium Level 2.3 mg/dL (1.8-2.4) Laboratory Tests Test 12/15/19 12:12 12/15/19 12:25 12/15/19 17:51 12/15/19 21:56 O2 Saturation 33 % (92-99) 89 % (92-99) Arterial Blood pH 7.26 (7.35-7.45) 7.36 (7.35-7.45) Arterial Blood pCO2 at Patient Temp 65 mmHg (35-46) 44 mmHg (35-46) Arterial Blood pO2 at Patient Temp < 42 mmHg (65-108) 64 mmHg (65-108) Arterial Blood HCO3 29 mmol/L (21-28) 24 mmol/L (21-28) Arterial Blood Base Excess 1 mmol/L (-3-3) -1 mmol/L (-3-3) FiO2 100 100 Glucose (Fingerstick) 162 mg/dL (70-99) 107 mg/dL (70-99) Test 12/15/19 23:55 12/16/19 05:36 12/16/19 06:15 Glucose (Fingerstick) 128 mg/dL (70-99) 155 mg/dL (70-99) White Blood Count 5.0 x10^3/uL (4.0-11.0) Red Blood Count 3.08 x10^6/uL (4.30-5.70) Hemoglobin 9.3 g/dL (13.0-17.5) Hematocrit 29.3 % (39.0-53.0) Mean Corpuscular Volume 95 fL (79-100) Mean Corpuscular Hemoglobin 30 pg (25-35) Mean Corpuscular Hemoglobin Concent 32 g/dL (31-37) Red Cell Distribution Width 15.2 % (11.5-14.5) Platelet Count 118 x10^3/uL (140-400) Neutrophils (%) (Auto) 87 % (31-73) Lymphocytes (%) (Auto) 9 % (24-48) Monocytes (%) (Auto) 4 % (0-9) Eosinophils (%) (Auto) 0 % (0-3) Basophils (%) (Auto) 0 % (0-3) Neutrophils # (Auto) 4.3 x10^3/uL (1.8-7.7) Lymphocytes # (Auto) 0.5 x10^3/uL (1.0-4.8) Monocytes # (Auto) 0.2 x10^3/uL (0.0-1.1) Eosinophils # (Auto) 0.0 x10^3/uL (0.0-0.7) Basophils # (Auto) 0.0 x10^3/uL (0.0-0.2) Sodium Level 146 mmol/L (136-145) Potassium Level 5.7 mmol/L (3.5-5.1) Chloride Level 111 mmol/L (98-107) Carbon Dioxide Level 24 mmol/L (21-32) Anion Gap 11 (6-14) Blood Urea Nitrogen 86 mg/dL (8-26) Creatinine 2.4 mg/dL (0.7-1.3) Estimated GFR (Cockcroft-Gault) 32.6 Glucose Level 173 mg/dL (70-99) Calcium Level 8.5 mg/dL (8.5-10.1) Phosphorus Level 5.8 mg/dL (2.6-4.7) Magnesium Level 2.3 mg/dL (1.8-2.4) Medications Active Scripts Medications Dose Route/Sig Max Daily Dose Days Date Category [place] 5-325 Tablet (Acetaminophen/Hydrocodone Bitart) 1 Each Tablet 1 Tab PO PRN Q6HRS PRN 03/20/18 Rx Orphenadrine Citrate 100 Mg Tablet.er 1 Tab PO BID 03/20/18 Rx Amlodipine Besylate 5 Mg Tablet 5 Mg PO DAILY 02/20/17 Rx Lisinopril 40 Mg Tablet 40 Mg PO DAILY 02/18/17 Reported Glipizide 5 Mg Tablet 2.5 Mg PO DAILY 02/18/17 Reported Hydrochlorothiazide Tablet (Hydrochlorothiazide) 12.5 Mg Tablet 25 Mg PO DAILY 02/18/17 Reported Furosemide 20 Mg Tablet 20 Mg PO DAILY 02/18/17 Reported Tamsulosin Hcl 0.4 Mg Cap.er.24h 1 Cap PO DAILY 02/18/17 Reported Aspirin 81 Mg Tab.chew 81 Mg PO DAILY 02/18/17 Reported Metformin Hcl 500 Mg Tablet 500 Mg PO DAILY 02/18/17 Reported Comments CXR reviewed Right IJ dialysis catheter is identified with the distal tip projecting over the right atrium. No pneumothorax. Increased patchy interstitial and alveolar airspace disease suggestive of worsening pulmonary edema. Impression . 1. Acute hypoxic respiratory failure secondary to COVID-19 pneumonia/acute lung injury/ acute respiratory distress syndrome. 2. Abnormal chest x-ray with bilateral interstitial infiltrates, COVID-19 pneumonia.-- 3. No significant tobacco history. 4. Acute kidney injury on top of CKD , 5. Severe protein-calorie malnutrition. 6. Abnormal D-dimer, likely related to COVID pneumonia. 7. New onset A. fib with rapid ventricular response, controlled Plan . Patient evaluated, appears to be in sync with the vein ventilator, no significant secretions with suctioning We will give additional Lasix Increase PEEP Suspect patient will do poorly and possibly code, he is currently a full DNR titrate fio2 to keep sat >94% Remdesivir 12/07 Follow cardiology input for new onset A. fib Follow nephrology input Continue steroids with taper for COVID-19 pneumonia, will need total of 10 days empiric antibiotics Follow renal recommendations, S/P plasma D-dimers elevated secondary to COVID, patient on full dose hep (for A-fib) DVT/GI PPX - D/W RN and RT critically ill TOTAL CRITICAL CARE TIME: 30 minutes. no overlap YUNIER COLBY MD Dec 16, 2019 08:48
[2019-12-16 09:17] LABS: FIO2 ABG 100
[2019-12-16 09:43] LABS: % BANDS 28 % (0-9); % EOS 1 % (0-5); % LYMPHS 9 % (24-48); % METAS 3 % (0-0); % MONOS 2 % (0-10); % SEGS 57 % (35-66); NUCLEATED RBC 1; PLT ESTIMATE DECREASED (ADEQUATE); TOXIC GRANULATION MOD
[2019-12-16 09:44] LABS: ANISOCYTOSIS SLIGHT; OVALOCYTES OCC
[2019-12-16] MEDS: PANTOPRAZOLE IV PUSH 40 MG VIAL. IVP SCH (10:10)
[2019-12-16] MEDS: ASPIRIN CHEWABLE 81 MG TABLET. PO SCH (10:11)
[2019-12-16] MEDS: ASCORBIC ACID 500 MG TABLET PO SCH (10:11)
[2019-12-16] MEDS: LACTOBACILLUS RHAMNOSUS GG 1 CAPSULE. PO SCH (10:11)
[2019-12-16] MEDS: ZINC SULFATE 220 MG CAPSULE. PO SCH (10:11)
[2019-12-16] MEDS: TAMSULOSIN 0.4 MG CAP.ER.24H. PO SCH (10:11)
[2019-12-16] MEDS: THIAMINE 100 MG TABLET. PO SCH (10:11)
[2019-12-16] MEDS: CHOLECALCIFEROL (VITAMIN D3) 1,000 UNIT TABLET PO SCH (10:11)
[2019-12-16] MEDS: INSULIN GLARGINE SYRINGE. SQ SCH (10:12)
[2019-12-16] MEDS: SENNOSIDES/DOCUSATE 8.6/50MG TABLET. PO SCH (11:31)
[2019-12-16] MEDS ORDERED: FUROSEMIDE 100 MG/10 ML VIAL. IVP ONE (12:00)
[2019-12-16] MEDS ORDERED: EPINEPHrine 1 MG/ML VIAL ONE (12:15)
[2019-12-16] MEDS ORDERED: FUROSEMIDE 40 MG/4 ML VIAL. IVP ONE (12:30)
--- NOTE | 2019-12-16 12:31 | PDOC ---
Date of Service: DATE: 12/16/19 TIME: 12:29 Objective: Objective: O2 desaturation currently. No blood in OG. Vital Signs: Vital Signs Date Time Temp Pulse Resp B/P (MAP) Pulse Ox O2 Delivery O2 Flow Rate FiO2 12/16/19 12:00 98.2 80 24 108/41 (63) 89 Ventilator 98.2 Labs: Laboratory Tests Test 12/15/19 17:51 12/15/19 21:56 12/15/19 23:55 12/16/19 05:36 Glucose (Fingerstick) 162 mg/dL 107 mg/dL 128 mg/dL 155 mg/dL Test 12/16/19 06:15 12/16/19 08:25 12/16/19 11:41 White Blood Count 5.0 x10^3/uL Red Blood Count 3.08 x10^6/uL Hemoglobin 9.3 g/dL Hematocrit 29.3 % Mean Corpuscular Volume 95 fL Mean Corpuscular Hemoglobin 30 pg Mean Corpuscular Hemoglobin Concent 32 g/dL Red Cell Distribution Width 15.2 % Platelet Count 118 x10^3/uL Neutrophils (%) (Auto) 87 % Lymphocytes (%) (Auto) 9 % Monocytes (%) (Auto) 4 % Eosinophils (%) (Auto) 0 % Basophils (%) (Auto) 0 % Neutrophils # (Auto) 4.3 x10^3/uL Lymphocytes # (Auto) 0.5 x10^3/uL Monocytes # (Auto) 0.2 x10^3/uL Eosinophils # (Auto) 0.0 x10^3/uL Basophils # (Auto) 0.0 x10^3/uL Segmented Neutrophils % 57 % Band Neutrophils % 28 % Lymphocytes % 9 % Monocytes % 2 % Eosinophils % 1 % Metamyelocytes % 3 % Nucleated Red Blood Cells 1 Toxic Granulation Mod Dohle Bodies Mod Platelet Estimate Decreased Large Platelets Occ Basophilic Stippling Present Anisocytosis Slight Ovalocytes Occ Sodium Level 146 mmol/L Potassium Level 5.7 mmol/L Chloride Level 111 mmol/L Carbon Dioxide Level 24 mmol/L Anion Gap 11 Blood Urea Nitrogen 86 mg/dL Creatinine 2.4 mg/dL Estimated GFR (Cockcroft-Gault) 32.6 Glucose Level 173 mg/dL Calcium Level 8.5 mg/dL Phosphorus Level 5.8 mg/dL Magnesium Level 2.3 mg/dL O2 Saturation 85 % Arterial Blood pH 7.24 Arterial Blood pCO2 at Patient Temp 56 mmHg Arterial Blood pO2 at Patient Temp 57 mmHg Arterial Blood HCO3 24 mmol/L Arterial Blood Base Excess -4 mmol/L FiO2 100 Glucose (Fingerstick) 125 mg/dL PE: GEN: intubated in COVID isolation LUNGS: vent HEART: RR ABD: non-distended NEURO/PSYCH: sedated A/P: Resp failure, +COVID-19 Normocytic anemia, CHAYITO Blood in OGT - resolved -- 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 Justicifation of Admission Dx: Justifications for Admission: Justification of Admission Dx: Yes Sepsis: Hypoxemia MIMI BAEZ Dec 16, 2019 12:31
[2019-12-16] MEDS: NOREPINEPHRINE VIAL 8 MG in IV DEXTROSE 5% 250 ML IV PRN ×4 (12:41→16:35)
--- NOTE | 2019-12-16 13:00 | NUR ---
Around 1215 RN noticed pt 02 sat to be in 80s with shallow waveform. RN in room, pulse ox changed with no improvement. Pt suctioned- nothing in ET tube. Pt now with no pupillary response, no cough/gag reflex, or response to pain. Sedation delayed, RT at bedside attempting to suction patient. Pt bagged by RT with still little improvement. BP cycled- pt hypotensive with hypoxia, see vitals. Levophed gtt initiated, titrated up to MAP of 65. Dr Hernandez at bedside, PEEP increased to 12 on ventilator. Pt slightly recovered from event, now 93% 02 sat, SBP 130s on levophed gtt, afebrile. Dr. Hernandez to update patient's on change in condition.
[2019-12-16] MEDS: TPN PER PHARMACY MC PRN (13:48)
--- NOTE | 2019-12-16 13:48 | NUR ---
Pharmacy TPN Dosing Note S: THA FORBES is a 69 year old M Currently receiving Central Continuous TPN started 12/15/19 B:Pertinent PMH: [employer] Height: 6 feet, 0 inches Weight: 164.8 kg Current diet: NPO LABS: Sodium: 146 Potassium: 5.7 Chloride: 111 Calcium: 8.5 Corrected Calcium: 10.58 Magnesium: 2.3 CO2: 24 SCr: 2.4 Glucose: 125-173 Albumin: 1.4 AST: 31 ALT: 64 TPN FORMULA: TPN TYPE: Central Continuous AMINO ACIDS: 60 gm DEXTROSE: 195 gm MULTIPLE VITAMIN: 10 ml TRACE ELEMENTS: 1 ml(s) TPN PLAN: no changes to TPN, electrolytes still elevated- cont to omit R: Continue same TPN formula. Will monitor electrolytes, glucose, and tolerance to TPN. KYLE ROSALES [facility], 12/16/19 0714
[2019-12-16] MEDS: VECURONIUM BOLUS 10 MG VIAL. IV PRN (14:09)
--- NOTE | 2019-12-16 14:42 | NUR ---
SS following up with discharge planning. SS reviewed pt chart and discussed with pt RN. Pt remains on the vent at this time. COVID19 positive. Pt on TPN. Full Code. Pt accepted at [facility], ; fax [phone]. SS phoned and faxed clinical updates to [facility]. SS will continue to follow for discharge planning.
--- NOTE | 2019-12-16 15:04 | PDOC ---
Renal-Progress Notes Subjective Notes Notes INTUBATED History of Present Illness Hx of present illness STABLE Vitals Vitals Vital Signs Date Time Temp Pulse Resp B/P (MAP) Pulse Ox O2 Delivery O2 Flow Rate FiO2 12/16/19 14:00 80 24 128/48 (74) 65 Ventilator 12/16/19 13:00 98.2 98.2 Weight Weight [ ] I.O. Intake and Output Intake and Output 12/16/19 06:59 Intake Total 1494 ml Output Total 4005 ml Balance -2511 ml IV Total 1414 ml Tube Feeding 80 ml Output Urine Total 3055 ml Gastric Drainage Total 950 ml Labs Labs Laboratory Tests Test 12/15/19 17:51 12/15/19 21:56 12/15/19 23:55 12/16/19 05:36 Glucose (Fingerstick) 162 mg/dL (70-99) 107 mg/dL (70-99) 128 mg/dL (70-99) 155 mg/dL (70-99) Test 12/16/19 06:15 12/16/19 08:25 12/16/19 11:41 White Blood Count 5.0 x10^3/uL (4.0-11.0) Red Blood Count 3.08 x10^6/uL (4.30-5.70) Hemoglobin 9.3 g/dL (13.0-17.5) Hematocrit 29.3 % (39.0-53.0) Mean Corpuscular Volume 95 fL (79-100) Mean Corpuscular Hemoglobin 30 pg (25-35) Mean Corpuscular Hemoglobin Concent 32 g/dL (31-37) Red Cell Distribution Width 15.2 % (11.5-14.5) Platelet Count 118 x10^3/uL (140-400) Neutrophils (%) (Auto) 87 % (31-73) Lymphocytes (%) (Auto) 9 % (24-48) Monocytes (%) (Auto) 4 % (0-9) Eosinophils (%) (Auto) 0 % (0-3) Basophils (%) (Auto) 0 % (0-3) Neutrophils # (Auto) 4.3 x10^3/uL (1.8-7.7) Lymphocytes # (Auto) 0.5 x10^3/uL (1.0-4.8) Monocytes # (Auto) 0.2 x10^3/uL (0.0-1.1) Eosinophils # (Auto) 0.0 x10^3/uL (0.0-0.7) Basophils # (Auto) 0.0 x10^3/uL (0.0-0.2) Segmented Neutrophils % 57 % (35-66) Band Neutrophils % 28 % (0-9) Lymphocytes % 9 % (24-48) Monocytes % 2 % (0-10) Eosinophils % 1 % (0-5) Metamyelocytes % 3 % (0-0) Nucleated Red Blood Cells 1 Toxic Granulation Mod Dohle Bodies Mod Platelet Estimate Decreased (ADEQUATE) Large Platelets Occ Basophilic Stippling Present Anisocytosis Slight Ovalocytes Occ Sodium Level 146 mmol/L (136-145) Potassium Level 5.7 mmol/L (3.5-5.1) Chloride Level 111 mmol/L (98-107) Carbon Dioxide Level 24 mmol/L (21-32) Anion Gap 11 (6-14) Blood Urea Nitrogen 86 mg/dL (8-26) Creatinine 2.4 mg/dL (0.7-1.3) Estimated GFR (Cockcroft-Gault) 32.6 Glucose Level 173 mg/dL (70-99) Calcium Level 8.5 mg/dL (8.5-10.1) Phosphorus Level 5.8 mg/dL (2.6-4.7) Magnesium Level 2.3 mg/dL (1.8-2.4) O2 Saturation 85 % (92-99) Arterial Blood pH 7.24 (7.35-7.45) Arterial Blood pCO2 at Patient Temp 56 mmHg (35-46) Arterial Blood pO2 at Patient Temp 57 mmHg (65-108) Arterial Blood HCO3 24 mmol/L (21-28) Arterial Blood Base Excess -4 mmol/L (-3-3) FiO2 100 Glucose (Fingerstick) 125 mg/dL (70-99) Micro Micro Microbiology 12/01/19 Urine Culture - Final, Complete Review of Systems Constitutional: yes: no symptom reported, unresponsive Ears/Nose/Throat: Yes: no symptom reported Eyes: Yes: no symptom reported Gastrointestional: Yes: no symptom reported Genitourinary: Yes: no symptom reported Skin: Yes no symptom reported Psychiatric/Neurological: Yes: no symptom reported Endocrine: Yes: no symptom reported Physical Exam General Appearance: obese, other (NO PE DUE TO COVID 19) Neurology: other (sedated) Assessment Assessment IMP [id number] OF 2.4 CKD STAGE 3 WITH CR OF 1.3 COVID 19 PNEUMONIA ACUTE HYPOXIC RESP FAILURE MORBID OBESITY PROTEIN CALORIE MALNUTRITION HEMATURIA LIKELY AVILA VS COVID 19 PLAN TPN LASIX PRN VENT SUPPORT MAINTAIN ADEQUATE MAP STOPPED PRESTON-I STOPPED THIAZIDE AND LASIX MAY NEED HD WILL FOLLOW ANETA CANO MD Dec 16, 2019 15:04
--- NOTE | 2019-12-16 15:59 | NUR ---
Talked with son Jayden regarding patient status with his decreasing oxygen saturation. OK'd with medical supervisor for them to come see the patient. Infoewmed Jayden we would allow 2 people to come in and see him.
--- NOTE | 2019-12-16 17:03 | NUR ---
Pt continues to be hypoxic and hemodynamically unstable throughout the day despite multiple interventions. Dr Hernandez notified, pt.'s family made aware of poor prognosis and order received to make pt DNR. Pt.'s , son in room visiting patient at this time. Pt still hemodynamically unstable, on levophed gtt, completely unresponsive
--- NOTE | 2019-12-16 17:18 | NUR ---
Called [facility] to notify of pt imminent . referral number [id number]
[2019-12-16] MEDS ORDERED: NOREPINEPHRINE VIAL 32 MG in IV DEXTROSE 5% 250 ML IV PRN (18:15)
--- NOTE | 2019-12-16 18:47 | NUR ---
Pt asystole on monitor at 1828. Assessed for 2 minutes [address] Mikaela CANTOR. Dr Soni on unit and notified. Doctor Mary notified. [facility] notified of TOD. pt's son Jayden notified of pt passing, will call back with home information.
--- NOTE | 2019-12-16 19:39 | PDOC3 ---
Discharge Summary Visit Information Date of Admission: Nov 28, 2019 Date of Discharge: Dec 16, 2019 Admitting Diagnosis Comment: COVID 19 infection acute hypoxemic respiratory distress due to the above. Acute renal failure due to vasomotor nephropathy normocytic anemia Final Diagnosis Problems Medical Problems: (1) ARF (acute renal failure) Status: Acute (2) Fever Status: Acute (3) Hypoxemia Status: Acute (4) Sepsis Status: Acute COVID 19 infection/ viral sepsis acute hypoxemic respiratory distress due to the above. Acute renal failure due to vasomotor nephropathy normocytic anemia Diabetes-Type II High Cholesterol Hypertension Severe protein calorie malnutrition Coffee ground emesis, GI evaluation noted, recommendations greatly appreciated. Brief Hospital Course Allergies Allergies Coded Allergies Type Severity Reaction Last Updated Verified No Known Allergies Allergy Unknown 12/16/19 Yes Vital Signs Vital Signs Date Time Temp Pulse Resp B/P (MAP) Pulse Ox O2 Delivery O2 Flow Rate FiO2 12/16/19 18:00 90 24 67 Ventilator 12/16/19 16:00 97.5 97.5 Lab Results Laboratory Tests Test 12/14/19 20:32 12/15/19 00:13 12/15/19 05:55 12/15/19 06:00 Glucose (Fingerstick) 112 mg/dL (70-99) 131 mg/dL (70-99) 151 mg/dL (70-99) Sodium Level 145 mmol/L (136-145) Potassium Level 5.9 mmol/L (3.5-5.1) Chloride Level 111 mmol/L (98-107) Carbon Dioxide Level 28 mmol/L (21-32) Anion Gap 6 (6-14) Blood Urea Nitrogen 77 mg/dL (8-26) Creatinine 1.7 mg/dL (0.7-1.3) Estimated GFR (Cockcroft-Gault) 48.6 Glucose Level 152 mg/dL (70-99) Calcium Level 8.5 mg/dL (8.5-10.1) Phosphorus Level 4.7 mg/dL (2.6-4.7) Magnesium Level 2.4 mg/dL (1.8-2.4) Test 12/15/19 08:00 12/15/19 12:12 12/15/19 12:25 12/15/19 17:51 O2 Saturation 93 % (92-99) 33 % (92-99) 89 % (92-99) Arterial Blood pH 7.38 (7.35-7.45) 7.26 (7.35-7.45) 7.36 (7.35-7.45) Arterial Blood pCO2 at Patient Temp 43 mmHg (35-46) 65 mmHg (35-46) 44 mmHg (35-46) Arterial Blood pO2 at Patient Temp 72 mmHg (65-108) < 42 mmHg (65-108) 64 mmHg (65-108) Arterial Blood HCO3 25 mmol/L (21-28) 29 mmol/L (21-28) 24 mmol/L (21-28) Arterial Blood Base Excess -1 mmol/L (-3-3) 1 mmol/L (-3-3) -1 mmol/L (-3-3) FiO2 85 100 100 Glucose (Fingerstick) 162 mg/dL (70-99) Test 12/15/19 21:56 12/15/19 23:55 12/16/19 05:36 12/16/19 06:15 Glucose (Fingerstick) 107 mg/dL (70-99) 128 mg/dL (70-99) 155 mg/dL (70-99) White Blood Count 5.0 x10^3/uL (4.0-11.0) Red Blood Count 3.08 x10^6/uL (4.30-5.70) Hemoglobin 9.3 g/dL (13.0-17.5) Hematocrit 29.3 % (39.0-53.0) Mean Corpuscular Volume 95 fL (79-100) Mean Corpuscular Hemoglobin 30 pg (25-35) Mean Corpuscular Hemoglobin Concent 32 g/dL (31-37) Red Cell Distribution Width 15.2 % (11.5-14.5) Platelet Count 118 x10^3/uL (140-400) Neutrophils (%) (Auto) 87 % (31-73) Lymphocytes (%) (Auto) 9 % (24-48) Monocytes (%) (Auto) 4 % (0-9) Eosinophils (%) (Auto) 0 % (0-3) Basophils (%) (Auto) 0 % (0-3) Neutrophils # (Auto) 4.3 x10^3/uL (1.8-7.7) Lymphocytes # (Auto) 0.5 x10^3/uL (1.0-4.8) Monocytes # (Auto) 0.2 x10^3/uL (0.0-1.1) Eosinophils # (Auto) 0.0 x10^3/uL (0.0-0.7) Basophils # (Auto) 0.0 x10^3/uL (0.0-0.2) Segmented Neutrophils % 57 % (35-66) Band Neutrophils % 28 % (0-9) Lymphocytes % 9 % (24-48) Monocytes % 2 % (0-10) Eosinophils % 1 % (0-5) Metamyelocytes % 3 % (0-0) Nucleated Red Blood Cells 1 Toxic Granulation Mod Dohle Bodies Mod Platelet Estimate Decreased (ADEQUATE) Large Platelets Occ Basophilic Stippling Present Anisocytosis Slight Ovalocytes Occ Sodium Level 146 mmol/L (136-145) Potassium Level 5.7 mmol/L (3.5-5.1) Chloride Level 111 mmol/L (98-107) Carbon Dioxide Level 24 mmol/L (21-32) Anion Gap 11 (6-14) Blood Urea Nitrogen 86 mg/dL (8-26) Creatinine 2.4 mg/dL (0.7-1.3) Estimated GFR (Cockcroft-Gault) 32.6 Glucose Level 173 mg/dL (70-99) Calcium Level 8.5 mg/dL (8.5-10.1) Phosphorus Level 5.8 mg/dL (2.6-4.7) Magnesium Level 2.3 mg/dL (1.8-2.4) Test 12/16/19 08:25 12/16/19 11:41 O2 Saturation 85 % (92-99) Arterial Blood pH 7.24 (7.35-7.45) Arterial Blood pCO2 at Patient Temp 56 mmHg (35-46) Arterial Blood pO2 at Patient Temp 57 mmHg (65-108) Arterial Blood HCO3 24 mmol/L (21-28) Arterial Blood Base Excess -4 mmol/L (-3-3) FiO2 100 Glucose (Fingerstick) 125 mg/dL (70-99) Laboratory Tests Test 12/15/19 21:56 12/15/19 23:55 12/16/19 05:36 12/16/19 06:15 Glucose (Fingerstick) 107 mg/dL (70-99) 128 mg/dL (70-99) 155 mg/dL (70-99) White Blood Count 5.0 x10^3/uL (4.0-11.0) Red Blood Count 3.08 x10^6/uL (4.30-5.70) Hemoglobin 9.3 g/dL (13.0-17.5) Hematocrit 29.3 % (39.0-53.0) Mean Corpuscular Volume 95 fL (79-100) Mean Corpuscular Hemoglobin 30 pg (25-35) Mean Corpuscular Hemoglobin Concent 32 g/dL (31-37) Red Cell Distribution Width 15.2 % (11.5-14.5) Platelet Count 118 x10^3/uL (140-400) Neutrophils (%) (Auto) 87 % (31-73) Lymphocytes (%) (Auto) 9 % (24-48) Monocytes (%) (Auto) 4 % (0-9) Eosinophils (%) (Auto) 0 % (0-3) Basophils (%) (Auto) 0 % (0-3) Neutrophils # (Auto) 4.3 x10^3/uL (1.8-7.7) Lymphocytes # (Auto) 0.5 x10^3/uL (1.0-4.8) Monocytes # (Auto) 0.2 x10^3/uL (0.0-1.1) Eosinophils # (Auto) 0.0 x10^3/uL (0.0-0.7) Basophils # (Auto) 0.0 x10^3/uL (0.0-0.2) Segmented Neutrophils % 57 % (35-66) Band Neutrophils % 28 % (0-9) Lymphocytes % 9 % (24-48) Monocytes % 2 % (0-10) Eosinophils % 1 % (0-5) Metamyelocytes % 3 % (0-0) Nucleated Red Blood Cells 1 Toxic Granulation Mod Dohle Bodies Mod Platelet Estimate Decreased (ADEQUATE) Large Platelets Occ Basophilic Stippling Present Anisocytosis Slight Ovalocytes Occ Sodium Level 146 mmol/L (136-145) Potassium Level 5.7 mmol/L (3.5-5.1) Chloride Level 111 mmol/L (98-107) Carbon Dioxide Level 24 mmol/L (21-32) Anion Gap 11 (6-14) Blood Urea Nitrogen 86 mg/dL (8-26) Creatinine 2.4 mg/dL (0.7-1.3) Estimated GFR (Cockcroft-Gault) 32.6 Glucose Level 173 mg/dL (70-99) Calcium Level 8.5 mg/dL (8.5-10.1) Phosphorus Level 5.8 mg/dL (2.6-4.7) Magnesium Level 2.3 mg/dL (1.8-2.4) Test 12/16/19 08:25 12/16/19 11:41 O2 Saturation 85 % (92-99) Arterial Blood pH 7.24 (7.35-7.45) Arterial Blood pCO2 at Patient Temp 56 mmHg (35-46) Arterial Blood pO2 at Patient Temp 57 mmHg (65-108) Arterial Blood HCO3 24 mmol/L (21-28) Arterial Blood Base Excess -4 mmol/L (-3-3) FiO2 100 Glucose (Fingerstick) 125 mg/dL (70-99) Brief Hospital Course History of Present Illness Patient is a 69 year old male with Past Medical History: Diabetes-Type II, High Cholesterol, Hypertension who was in his usual state of health until 2 days prior ot his admission when he was evaluated at and found to be positive for COVID 19 virus, patient was discharged and given instructions to follow up in the nearest medical center would his symptoms worsen, Today he felt worse and more dyspneic reason why he came to the ER, he is requiring 1 liter of oxygen at the time of my evaluation, he does not seem to be in acute distress, reassurance provided, plan of care explained in detail. No nausea vomiting or diarrhea reported, no other complaints besides the shortness of breath, no headache blurred vision, no chest pain or palpitations, no peripheral edema. Reassurance provided. Mr. Olvera is a 69-year-old gentleman who was admitted with COVID-19 infection that was diagnosed in an outside facility. Initially admitted to the COVID unit but subsequently he required to be moved to the intensive care unit for Vapotherm. On 05/09 2019 the patient went into the event and unfortunately did not recover from the insult He had a very prolonged hospital stay and unfortunately he succumbed to the virus. For details please see below in a nuts hell the patient developed multiorgan failure as a consequence of his viral infection efforts were made to provide all the support needed for the patient unfortunately he today at 1828 from complications of the disease. 12/16/2019 Remains critically stable follow urine output h and h pending. no further coffee ground emesis. 12/15/2019 Remains on mechanical ventilation No further coffee-ground emesis GI consultation noted Sedated on propofol Remains critically ill Prognosis guarded 12/14/2019 Patient seen in the [place] [id number] ICU Remains intubated AC/24/600 with 90% FiO2 and 10 of PEEP Discussed with RN Patient having some coffee-ground emesis I consulted GI awaiting their input Currently sedated with Versed fentanyl and propofol He also has a heparin drip He remains critically ill 12/13/2019 Patient seen and examined in the [place] [address] ICU He remains intubated Assist-control/24/6 100/90% with 10 of PEEP He has OG in place He is sedated with Versed fentanyl and propofol He also has a heparin drip Chart reviewed Discussed with RN He remains extremely critically ill we are concerned he may not survive 12/12/2019 Patient seen in ICU [place] [id number] unit He remains intubated and mechanically ventilated AC/24/6 100/100% with 10 of PEEP He is sedated with propofol Versed and fentanyl I discussed the case with the pillowcase turner discussed with RNs as well Chart reviewed He remains very critically ill as he is on 100% oxygen 12/11/2019 Patient seen and examined once again in the [place] [address] ICU He is intubated Assist-control/24/6 100/100% with 9 of PEEP He has OG feeds running at 60 cc an hour He is on a heparin drip He is fentanyl and Versed for sedation Discussed with the pillowcase turner Discussed with RN Chart reviewed He remains critically ill 12-10-2019 Patient seen and examined in the [place] [address] ICU He is still intubated He is back on 100% FiO2 AC/24/6 100/100% with 10 of PEEP I discussed the case with the pillowcase turner I spoke with his son Jayden yesterday by phone for quite some time Chart reviewed 12-09-2019 Patient seen and examined in the [place] [address] ICU He remains intubated Assist-control/24/6 100/90% with 7 of PEEP He is sedated with Versed propofol He is also on a heparin drip Also has fentanyl IV Discussed with case management Discussed with RN Chart reviewed I tried to call the family but no answer I left a voicemail Plan is to [facility] possible Mr Olvera is a 69yo M w/ PMHx Diabetes-Type II, High Cholesterol, Hypertension who was in his usual state of health until 2 days prior ot his admission when he was evaluated at [facility] and found to be positive for COVID 19 virus, patient was discharged and given instructions to follow up in the nearest medical center would his symptoms worsen, Today he felt worse and more dyspneic reason why he came to the ER, he initially requiring 1 liter of oxygen 11/28: Febrile 101 3 F overnight. Procalcitonin elevated, INR 1.4, WBC 9.1, Hb 11.9, platelets 189, NA 137, K3.4, BUN 39, CR 2.8, glucose 240. He is short of breath with cough. He is insistent he does not wish for convalescent FFP if his O2 needs continues to increase. Now on 4L NCO2. 11/29: Febrile to 101.5 F overnight. Creatinine increased to 4.1, he still very short of breath worsening cough, increased from 6 L nasal cannula overnight to 15 L nonrebreather facemask. I discussed with pulmonology to transferred out of the ICU. I have asked the patient to reconsider convalesce and FFP and will discuss with his family. 11/30: No acute events reported overnight, case discussed with nursing staff patient in no acute distress no complaints during my visit seems to be tolerating Vapotherm well hopefully he will be able to continue with improving, encourage proning position if tolerated 12/01: No acute events reported overnight, case discussed with nursing staff patient in no acute distress no complaints during my visit, given update eugenia vanessa's over the phone reassurance has been provided no new complaints seems to be status quo. Encourage more activity as tolerated in prone positioning 12/02: Discussed with nursing staff, no acute events overnight. Breathing well on Vapotherm. Continue ICU monitoring. 12/03: Patient with O2 desaturation overnight. Breathing more comfortably upright position. Currently breathing on 40 L of high flow nasal cannula with 100% O2 saturation 12/07 : PLACED ON VENT OVER NIGHT, inc resp distress Discharge Information Condition at Discharge: / Scheduled Amlodipine Besylate (Amlodipine Besylate) 5 Mg Tablet, 5 MG PO DAILY, #30 Prescribed by: POORNIMA ARGUELLO MD on 02/20/17 1309 Last Action: Continued on 11/28/191756 by RAN GONZALES MD Aspirin (Aspirin) 81 Mg Tab.chew, 81 MG PO DAILY, (Reported) Entered as Reported by: Nohemi Song RN on 02/18/172223 Last Action: Continued on 11/28/191756 by RAN GONZALES MD Furosemide (Furosemide) 20 Mg Tablet, 20 MG PO DAILY, (Reported) Entered as Reported by: Nohemi Song RN on 02/18/172223 Last Action: Continued on 11/28/191756 by RAN GONZALES MD Glipizide (Glipizide) 5 Mg Tablet, 2.5 MG PO DAILY, (Reported) Entered as Reported by: Nohemi Song RN on 02/18/172223 Last Action: Continued on 11/28/191756 by RAN GONZALES MD Hydrochlorothiazide (Hydrochlorothiazide Tablet) 12.5 Mg Tablet, 25 MG PO DAILY for DIURETIC, Ref 0 (Reported) Entered as Reported by: Nohemi Song RN on 02/18/172223 Last Action: Converted on 11/28/191756 by RAN GONZALES MD Lisinopril (Lisinopril) 40 Mg Tablet, 40 MG PO DAILY for FOR HYPERTENSION, #30 Ref 0 (Reported) Entered as Reported by: Nohemi Song RN on 02/18/172223 Last Action: Continued on 11/28/191756 by RAN GONZALES MD Metformin Hcl (Metformin Hcl) 500 Mg Tablet, 500 MG PO DAILY for ANTI-DIABETIC, Ref 0 (Reported) Entered as Reported by: Nohemi Song RN on 02/18/172223 Last Action: HELD on 11/28/191755 by RAN GONZALES MD Orphenadrine Citrate (Orphenadrine Citrate) 100 Mg Tablet.er, 1 TAB PO BID, #20 Ref 1 Prescribed by: CECY AQUINO APRN on 03/20/182022 Last Action: Converted on 11/28/191756 by RAN GONZALES MD Tamsulosin Hcl (Tamsulosin Hcl) 0.4 Mg Cap.er.24h, 1 CAP PO DAILY, #30 Ref 5 (Reported) Entered as Reported by: Nohemi Song RN on 02/18/172223 Last Action: Continued on 11/28/191756 by RAN GONZALES MD Scheduled PRN Hydrocodone/Apap 5-325 ([place] 5-325 Tablet) 1 Each Tablet, 1 TAB PO PRN Q6HRS PRN for PAIN, #10 Ref 0 Prescribed by: CECY AQUINO APRN on 03/20/182022 Last Action: Continued on 11/28/191756 by RAN GONZALES MD Justicifation of Admission Dx: Justifications for Admission: Justification of Admission Dx: Yes Sepsis: Hypoxemia RAN GONZALES MD Dec 16, 2019 19:38
[2019-12-16] MEDS ORDERED: TOTAL PARENTERAL NUTRITION IV SCH (22:00)
[2019-12-16] MEDS ORDERED: [UNRECOGNIZED DRUG - OTHER] IV SCH (22:00)
[2019-12-16] MEDS ORDERED: AMINO ACID IV SCH (22:00)
[2019-12-16] MEDS ORDERED: DEXTROSE IV SCH (22:00)
--- NOTE | 2019-12-22 08:38 | RAD ---
Procedure: Ultrasound-guided placement of right internal jugular temp dialysis catheter/ 6:32 AM Clinical Indication: CHAYITO , decreasing UOP, CoVid + Discussion: The risks and benefits of the procedure were discussed the patient and/or their cash applications representative. Informed consent was obtained. A timeout procedure was performed. All elements of maximal sterile barrier technique including the use of a cap, mask, sterile gown, sterile gloves, large sterile sheet, appropriate hand hygiene, and 2% chlorhexidine for cutaneous antisepsis (or acceptable alternative antiseptic per current guidelines) were followed for this procedure. The patient was prepped and draped in the usual sterile fashion. Ultrasound interrogation of the right neck revealed patency and compressibility of the right internal jugular vein. A 21-gauge micropuncture was then used to gain access to this vein under ultrasound guidance. A hard copy ultrasound image was recorded. A guidewire was advanced centrally. 5 Spanish sheath was placed. Over a wire following dilatation, a temporary dialysis catheter was advanced centrally. Catheter was found to flush and aspirate normally. Follow-up chest radiograph demonstrates tip at the cavoatrial junction. Catheter secured in place and a sterile dressing was applied. No immediate complications were identified. Impression: Successful ultrasound-guided placement of right internal temporary dialysis catheter
== END 2019-12-16 20:30 | DRG 870 ==
LOC: ER 15:04 → ED HOLD 16:37 → 6 SOUTH 20:05 → ED HOLD 20:30 → 6 SOUTH 21:03 → 1 WEST ICU 11-30 09:24
PROVIDERS: ADMIT Internal Medicine; ATTEND Internal Medicine
PROC: 0BH17EZ Insertion of Endotracheal Airway into Trachea, Via Natural or Artificial Opening (ICD-10-PCS; 2019-11-28)
PROC: XW13325 Transfusion of Convalescent Plasma (Nonautologous) into Peripheral Vein, Percutaneous Approach, New Technology Group 5 (ICD-10-PCS; 2019-11-30)
PROC: 02H633Z Insertion of Infusion Device into Right Atrium, Percutaneous Approach (ICD-10-PCS; principal; 2019-12-01)
PROC: 5A1955Z Respiratory Ventilation, Greater than 96 Consecutive Hours (ICD-10-PCS; 2019-12-07)
PROC: XW033E5 Introduction of Remdesivir Anti-infective into Peripheral Vein, Percutaneous Approach, New Technology Group 5 (ICD-10-PCS; 2019-12-07)
DX: A41.9 Sepsis, unspecified organism (principal); U07.1 COVID-19; J96.01 Acute respiratory failure with hypoxia; N17.0 Acute kidney failure with tubular necrosis; E43 Unspecified severe protein-calorie malnutrition; J12.89 Other viral pneumonia; I13.0 Hypertensive heart and chronic kidney disease with heart failure and stage 1 through stage 4 chronic kidney disease, or unspecified chronic kidney disease; I50.30 Unspecified diastolic (congestive) heart failure; K22.10 Ulcer of esophagus without bleeding; E87.0 Hyperosmolality and hypernatremia; Z68.42 Body mass index [BMI] 45.0-49.9, adult; D64.9 Anemia, unspecified; E11.22 Type 2 diabetes mellitus with diabetic chronic kidney disease; E11.649 Type 2 diabetes mellitus with hypoglycemia without coma; E66.01 Morbid (severe) obesity due to excess calories; E78.00 Pure hypercholesterolemia, unspecified; E78.5 Hyperlipidemia, unspecified; F41.9 Anxiety disorder, unspecified; G47.33 Obstructive sleep apnea (adult) (pediatric); I48.91 Unspecified atrial fibrillation; N18.3 Chronic kidney disease, stage 3 (moderate); N40.0 Benign prostatic hyperplasia without lower urinary tract symptoms; Z66 Do not resuscitate; M19.90 Unspecified osteoarthritis, unspecified site; R31.9 Hematuria, unspecified; Z79.82 Long term (current) use of aspirin; Z79.84 Long term (current) use of oral hypoglycemic drugs; Z79.899 Other long term (current) drug therapy; Z82.49 Family history of ischemic heart disease and other diseases of the circulatory system
CPT/HCPCS: 36415; 36556; 36600; 71045; 76770; 76937; 80048; 80053; 81001; 82550; 82728; 82805; 82962; 83605; 83690; 83735; 84100; 84145; 85007; 85025; 85027; 85379; 85520; 85610; 86140; 86850; 86900; 86901; 86927; 87086; 93005; 94002; 94003; 94660; 94760; 96365; 96372; 96375; 99285; C1892; C9113; J0171; J0330; J0360; J0461; J1265; J1630; J1644; J1650; J1815; J1940; J2060; J2250; J2370; J2405; J2543; J2704; J2920; J2930; J3010; J3411; J3475; J3490; J7030; J7040; J7050; J7060; G0378; P9017; U0003-CS